=== PATIENT | female | born 1950 | race Caucasian/White ===

== ENCOUNTER 2023-04-30 14:53 | Outpatient (CLI) | payer OTHER, SELFPAY | END 2023-04-30 14:54 | disposition home or self-care (01) | PROVIDERS: Visit Provider Emergency Medicine | DX: M25.571 Pain in right ankle and joints of right foot (principal); D64.9 Anemia, unspecified; N18.9 Chronic kidney disease, unspecified | CPT/HCPCS: 84550; 86200 ==

== ENCOUNTER 2023-05-08 07:47 | Outpatient (CLI) | payer OTHER, SELFPAY | END 2023-05-08 07:48 | disposition home or self-care (01) | LOC: NFLDREF 14:18 | PROVIDERS: PCP Emergency Medicine; Visit Provider Family Medicine | DX: R35.0 Frequency of micturition (principal); N39.0 Urinary tract infection, site not specified | CPT/HCPCS: 87086; 87186 ==

== ENCOUNTER 2023-05-12 11:12 | Emergency (ER) | payer OTHER, SELFPAY ==
[2023-05-12 11:30] VITALS: BP 111/71; PULSE 79; RESP 16; TEMP 36.2; O2SAT 99
--- NOTE | 2023-05-12 12:02 | ED.GENADULT ---
HPI - General Adult General Chief complaint: Extremity Pain/Injury, Lower Stated complaint: right ankle/foot pain Time Seen by Provider: 05/12/23 11:59 History of Present Illness HPI narrative: A 72-year-old female with a past medical history of previous hep C, cirrhosis, liver transplant, kidney transplant(on prednisone, tacrolimus), hypothyroidism (levothyroxine 75 mcg), diabetes, recent diagnosis of UTI, who presents to the ER for hair pain, redness, and swelling involving her right anterior ankle. She has actually had pain involving the front of her right ankle for about 6 weeks or so. She denies any fall or trauma at the onset. He was initially fairly localized to the anterior ankle at the top of the foot with a small amount of redness. It has been was indolent in there for a few weeks, bothersome but not terrible. About a week or 2 it began to get worse and it has been getting steadily worse since then. She was seen in the urgent care on 04/30 for this ankle pain. Per clinic notes: Right anterior ankle pain swelling some redness. This is not seem typical for cellulitis, difficult to assess the there is infusion. She certainly is at risk for gout with her renal impairment. She also has history of osteoporosis, steroid dependent, at risk for occult fracture. The plan for now is mri of the ankle no contrast, I would like to stay place her on a tapering dose of prednisone 40 mg which is very worried about the higher dose. We will start at 20 mg for 4 days and then 10 mg for 3 days and then 5 mg. I will call her with her CT results, if symptoms acutely worsen she will recheck sooner. WBC 8.5, hemoglobin 12.1, platelet 141 Sodium 142, potassium 4.0, BUN 14, creatinine 1.1, glucose 132 Ankle x-ray IMPRESSION: Small plantar and posterior calcaneal spurs. Otherwise normal right ankle. She is scheduled for MRI next week but because her pain has been getting steadily worse, it is not intolerable and she is not able to walk, she came here to the ER. Pain has been getting steadily worse and she feels like the redness is now spreading affecting more of the top of her foot and anterior ankle. There is no ascending lymphangitis. No fever. No new injury. Hurts for her to walk on the ankle. She was in clinic on 05/07 for dysuria and frequency. Urinalysis showed 25-50 WBC, positive nitrate. She was treated with Cipro 250 mg p.o. b.i.d. for 7 days. Urine culture grew pansensitive E coli. She is still on those antibiotics today. Urinary symptoms are better. Related Data Home Medications Medication Instructions Recorded Confirmed albuterol sulfate 90 mcg/actuation inhalation 04/15/23 05/08/23 aerosol inhaler alendronate 35 mg tablet 35 mg PO 04/15/23 05/08/23 amlodipine 5 mg tablet 5 mg PO DAILY 04/15/23 05/08/23 atorvastatin 10 mg tablet 10 mg PO DAILY 04/15/23 05/08/23 carvedilol 12.5 mg tablet 12.5 mg PO BID 04/15/23 05/08/23 ergocalciferol (vitamin D2) 1,250 1,250 mcg PO 04/15/23 05/08/23 mcg (50,000 unit) capsule estradiol 0.01% (0.1 mg/gram) vaginal 04/15/23 05/08/23 vaginal cream fluticasone propionate 50 spray intranasal 04/15/23 05/08/23 mcg/actuation nasal spray,suspension hydroxyzine HCl 25 mg tablet mg PO 04/15/23 05/08/23 insulin aspart U-100 100 unit/mL 8 unit subcut 3XD 04/15/23 05/08/23 (3 mL) subcutaneous pen (Novolog FlexPen U-100 Insulin aspart) insulin degludec 100 unit/mL (3 20 unit subcut QAM 04/15/23 05/08/23 mL) subcutaneous pen (Tresiba FlexTouch U-100 insulin) levothyroxine 75 mcg tablet 75 mcg PO DAILY 04/15/23 05/08/23 levothyroxine 88 mcg tablet 88 mcg PO DAILY 04/15/23 05/08/23 mycophenolate mofetil 250 mg 500 mg PO BID 04/15/23 05/08/23 capsule prednisone 5 mg tablet 5 mg PO QAM 04/15/23 05/08/23 semaglutide 2 mg/dose (8 mg/3 mL) 2 mg subcut 04/15/23 05/08/23 subcutaneous pen injector (Ozempic) tacrolimus 1 mg capsule, mg PO 04/15/23 05/08/23 immediate-release trazodone 50 mg tablet mg PO 04/15/23 05/08/23 Previous Rx's Medication Instructions Recorded prednisone 10 mg tablet 10 mg PO DIRECTED #11 tabs 04/30/23 ciprofloxacin HCl 250 mg tablet 250 mg PO BID #14 tabs 05/08/23 hydrocodone 5 mg-acetaminophen 325 1 tab PO Q4-6H PRN pain #10 tabs 05/12/23 mg tablet Allergies Allergy/AdvReac Type Severity Reaction Status Date / Time No Known Drug Allergies Allergy Verified 05/08/23 07:54 [facility] Medical History (Updated 05/12/23 @ 15:04 by Armando Bell MD) Anemia ?D64.9 - Anemia, unspecified (ICD-10) CKD (chronic kidney disease) ?N18.9 - Chronic kidney disease, unspecified (ICD-10) Ankle pain ?M25.579 - Pain in unspecified ankle and joints of unspecified foot (ICD-10) Surgical History (Updated 05/12/23 @ 16:24 by Mery Smith ~ [facility], [facility]) History of appendectomy ?Z90.49 - Acquired absence of other specified parts of digestive tract (ICD-10) Liver transplant recipient ?Z94.4 - Liver transplant status (ICD-10) Kidney transplant recipient ?Z94.0 - Kidney transplant status (ICD-10) Social History Little interest or pleasure in doing things: not at all Feeling down, depressed, or hopeless: not at all Exam Const: Vital Signs, click to edit/add: Vital Signs - 24 hr 05/12/23 11:30 Temperature 97.1 F L Pulse Rate [Pulse Oximeter] 79 Respiratory Rate 16 Blood Pressure [Ri ght Upper Arm] 111/71 Pulse Oximetry 99 Oxygen Delivery Me thod Room Air Course Vital Signs Vital signs: Initial Vital Signs Temperature 97.1 F L 05/12/23 11:30 Temperature Source Temporal Artery Scan 05/12/23 11:30 Pulse Rate 79 05/12/23 11:30 Pulse Rhythm Regular 05/12/23 11:30 Respiratory Rate 16 05/12/23 11:30 Blood Pressure 111/71 05/12/23 11:30 Blood Pressure Mean 84 05/12/23 11:30 Blood Pressure Position Sitting 05/12/23 11:30 Pulse Oximetry 99 05/12/23 11:30 Oxygen Delivery Method Room Air 05/12/23 11:30 Vital Signs Temperature 97.1 F L 05/12/23 11:30 Pulse Rate 79 05/12/23 11:30 Respiratory Rate 16 05/12/23 11:30 Blood Pressure 111/71 05/12/23 11:30 Pulse Oximetry 99 05/12/23 11:30 Oxygen Delivery Method Room Air 05/12/23 11:30 Temperature 97.1 F L 05/12/23 11:30 Pulse Rate 79 05/12/23 11:30 Respiratory Rate 16 05/12/23 11:30 Blood Pressure 111/71 05/12/23 11:30 Pulse Oximetry 99 05/12/23 11:30 Oxygen Delivery Method Room Air 05/12/23 11:30 Medical Decision Making MDM Narrative Medical decision making narrative: Pleasant 72-year-old female on chronic immunosuppression for kidney and liver transplant presenting to the ER today with a 6 week history of right anterior ankle pain getting progressively worse and more severe over the past several days. She presents with significant erythema and tenderness on the anterior ankle as well as some mild lateral and posterior tenderness. Differential included ankle joint pathology such as septic arthritis, gouty arthritis, among other. Differential also includes cellulitis, no evidence for abscess. No evidence for necrotizing infection. She has strong peripheral pulses and no signs of acute limb ischemia. No anterior mathews or calf pain to suggest DVT. Laboratory workup shows normal white count but neutrophil predominance. Suspect this might be related to her concomitant UTI. ESR and CRP are reassuring. MRI of the patient's ankle shows evidence for tendinitis affecting the anterior tibialis tendon. Discussed with Radiology, Dr. Galvan, by phone. He indicates that it does show anterior tibialis tenosynovitis with some surrounding subcutaneous edema. No drainable fluid collections. Cam walker and crutches applied here in the ER. Patient will be able to manage with these at home. [place] for pain. Patient understands opiate precautions/sedation. Will arrange close outpatient follow-up with orthopedic clinic. Lab Data Lab results reviewed: Yes I reviewed the patient's lab results Labs: Lab Results 05/12/23 Range/Units 13:28 WBC 10.59 (4.50-11.00) K/uL RBC 4.64 (4.00-5.20) m/uL Hgb 11.8 L (12.0-16.0) gm/dL Hct 38.1 (33.0-51.0) % MCV 82 (80-100) fL MCH 25 L (26-34) pg MCHC 31 L (32-36) gm/dL RDW Coeff of Amelia 14.8 (11.5-15.5) % Plt Count 181 (140-440) K/uL Neut % (Auto) 86.3 H (42.0-72.0) % Lymph % (Auto) 5.7 L (20-44) % Runnels % (Auto) 6.5 (0.0-11.0) % Eos % (Auto) 0.6 (0.0-7.0) % Baso % (Auto) 0.2 (0.0-3.0) % Neut # (Auto) 9.10 H (1.7-7.0) K/uL Lymph # (Auto) 0.60 L (0.90-2.90) K/uL Runnels # (Auto) 0.70 (0.00-0.90) K/UL Eos # (Auto) 0.06 (0.00-0.50) K/uL Baso # (Auto) 0.02 (0.00-0.30) K/uL Abs Immat Gran (auto) 0.07 (0.00-0.30) K/uL Imm/Tot Granulo (auto) 0.7 % ESR 7 (2-20) mm/hr Sodium 142 (135-149) mmol/L Potassium 3.5 L (3.6-5.1) mmol/L Chloride 108 (96-114) mmol/L Carbon Dioxide 26 (20-32) mmol/L BUN 12 (7-30) mg/dL Creatinine 1.0 (0.5-1.5) mg/dL Estimated GFR 61 ml/min Glucose 124 H (60-115) mg/dL Calcium 9.0 (8.4-10.6) mg/dL C-Reactive Protein 0.7 (0.5-1.0) mg/dL Imaging Data MRI Right Ankle: Attestation: I have reviewed the pertinent imaging results. Radiologist's impression: IMPRESSION: Moderately prominent tenosynovitis of the anterior tibialis. Some limitation in image quality and diagnostic sensitivity due to poor fat saturation. Discharge Plan Discharge Clinical Impression: Tenosynovitis of ankle Patient Disposition: Home, Self-Care Condition: Stable Instructions: Tenosynovitis (ED) Additional Instructions: Please rest your ankle for the next couple of days until your follow-up with orthopedics. We will make an appointment for you today with the orthopedic clinic. Wear the ankle brace and use crutches as needed to help limit the mobility of her ankle. It is okay for you to stand on her ankle and bear weight because the bones are not broken. However try to avoid flexing and extending her foot. Use ice for 15-20 minutes every 3 hours health reduce redness, pain, and swelling. Continue your normal medications. Use [place] as needed for pain. Be careful, pain killer such as [place] can cause sedation, drowsiness, falls, constipation, and can be addictive. If you have worsening or uncontrolled pain or any concerns, see your doctor or come back to the ER immediately. Follow up appointment is scheduled at the [facility] on 05/14 with a 9:50am appointment time. Please arrive at 9:40am to check in and complete any paperwork. If you have any questions or need to reschedule, please call [phone]. [facility] [address] [place] [address] Activity Level: Weight Bearing as Tolerated Activity Detail: Limit bending and straightening of your right ankle. Rest the ankle tendons as much as possible. Prescriptions: New hydrocodone-acetaminophen 5-325 mg tablet 1 tab PO Q4-6H PRN (Reason: pain) Qty: 10 0RF No Action tacrolimus 1 mg capsule PO trazodone 50 mg tablet PO amlodipine 5 mg tablet 5 mg PO DAILY mycophenolate mofetil 250 mg capsule 500 mg PO BID insulin aspart U-100 [Novolog FlexPen U-100 Insulin] 100 unit/mL (3 mL) insulin pen 8 unit subcut 3XD alendronate 35 mg tablet 35 mg PO prednisone 5 mg tablet 5 mg PO QAM levothyroxine 75 mcg tablet 75 mcg PO DAILY carvedilol 12.5 mg tablet 12.5 mg PO BID Ozempic 2 mg/dose (8 mg/3 mL) pen injector 2 mg subcut insulin degludec [Tresiba FlexTouch U-100] 100 unit/mL (3 mL) insulin pen 20 unit subcut QAM atorvastatin 10 mg tablet 10 mg PO DAILY ergocalciferol (vitamin D2) 1,250 mcg (50,000 unit) capsule 1,250 mcg PO levothyroxine 88 mcg tablet 88 mcg PO DAILY hydroxyzine HCl 25 mg tablet PO estradiol 0.01 % (0.1 mg/gram) cream vaginal fluticasone propionate 50 mcg/actuation spray,suspension intranasal albuterol sulfate 90 mcg/actuation HFA aerosol inhaler inhalation ciprofloxacin HCl 250 mg tablet 250 mg PO BID Qty: 14 0RF prednisone 10 mg tablet 10 mg PO DIRECTED Qty: 11 0RF Rx Instructions: 2 tabs daily for 4days and then one tab daily for 3 days and then previous 5mg tab Follow Up/Referrals: Ashli Howell MD [Primary Care Provider] - Stand Alone Forms: [facility] Info Instructions
--- NOTE | 2023-05-12 12:31 | CRLHL7_ITS ---
For Patients: As a result of the Century Cures Act, medical imaging exams and procedure reports are released immediately into your electronic medical record. You may view this report before your referring provider. If you have questions, please contact your health care provider. INDICATION: Pain with redness. COMPARISON: Axial PD and T2 fat-sat, coronal PD and T2 fat-sat and sagittal PD and T2 right ankle sequences. Incomplete fat saturation is limiting. FINDINGS: Moderate amount of fluid anterior tibialis tendon sheath. Intact tendon. The other periarticular tendons are normal. No ligamentous injury of significance. Anatomic alignment of the ankle. Physiologic fluid. Upper normal fluid in the retrocalcaneal bursa. No obvious fracture or bone lesion. No soft tissue mass or fluid collection. There appears to be some nonspecific subcutaneous edema anteriorly and medially around the ankle into the dorsal foot. IMPRESSION: Moderately prominent tenosynovitis of the anterior tibialis. Some limitation in image quality and diagnostic sensitivity due to poor fat saturation. Dictated by Enrique Rocha MD @ 05/12/2023 2:34:25 PM (Electronically Signed)
--- OUTSIDE RECORDS SUMMARY | 2023-05-12 13:29 | XMS_ITS | Patient Health Record ---
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 Name Role Phone MARC FUENTES Primary Care Provider ALLERGIES No Known Allergies REASON FOR REFERRAL No Information MEDICATIONS Medication SIG (Take, Route, Frequency, Duration) Notes Start Date End Date Status Tresiba 100 UNIT/ML as directed Subcutaneous 30U Active amLODIPine Besylate 5 MG 1 tablet Orally Once a day for 90 days Active Ozempic 0.5 mg DOSE once a week Subcutaneous Takes 1 mg Active NovoLOG FlexPen 100 UNIT/ML 10U Subcutaneous once a day for 30 days Sliding Scale 08/25/2019 Active Belsomra 20 MG 1 tablet at bedtime as needed Orally Once a day for 30 days 12/06/2021 Active Lancets - as directed AD three times a day for 30 days 08/01/2019 Active predniSONE 5 MG 1 tablet Orally Once a day Active Mycophenolate Mofetil 250 MG 2 capsules Orally twice a day for 30 days Active Acyclovir 800 MG 1 tablet Orally PRN for 30 days Active Tacrolimus 1 MG 2 in the morning, 1 in the evening Orally for 30 days Active Levothyroxine Sodium 100 MCG 1 tablet on an empty stomach in the morning Orally Once a day for 30 days Active Carvedilol 12.5 MG 1 tablet with food Orally Twice a day for 90 days Active Ambien 10 MG 1 tablet at bedtime as needed Orally Once a day for 30 days 07/12/2019 Active Atorvastatin Calcium 10 MG 1 tablet Orally Once a day for 90 days Active Cetirizine HCl 10 MG 1 tablet Orally Onc e a day for 30 day(s) 12/06/2021 Active One Touch Delica Lancets pt tests TID to check blood sugar e11.65 three times a day for 90 days 08/11/2019 Active DULoxetine HCl 30 MG 1 capsule Orally On ce a day for 30 days 09/11/2021 Active Levemir FlexTouch 100 UNIT/ML 10 units Subcutaneous once a day dx. E11.65 for 90 days 08/29/2019 Active NovoFine 32G X 6 MM as directed twice a day for 30 days 08/05/2019 Active OneTouch Delica Plus [id number] - USE TO TEST BLOOD SUGAR THREE TIMES A DAY FOR 90 DAYS for 30 Active traZODone HCl 50 MG 1 tablet at bedtime as needed Orally Once a day for 90 days 12/06/2021 Active IMMUNIZATIONS Vaccine Route Administration Date Status Comme nts FLUZONE 6MO & OLDER IM Intramuscular 09/11/2021 Administer ed Shingrix SDV IM Intramuscular 09/11/2021 Administered SOCIAL HISTORY Tobacco Use: Social History Observation Description Date Details (start date - stop date) Current Smoker NA - NA Sex Assigned At : Social History Observation Description Sex Assigned At Unknown Do you Smoke? Question Answer Notes Are you a current smoker Alcohol Screen Question Answer Notes Did you have a drink containing alcohol in the p ast year? No Points 0 Interpretation Negative Sexual History Question Answer Notes Had sex in the past 12 months (vaginal, oral, or anal)? Yes with Men only Use protection? Yes How often? All of the time Prevention strategies discussed: Condoms Have you ever had a Sexually transmitted disease ? No PROBLEMS Problem Type ICD Code Onset Dates Problem Status W/U Status Risk SNOMED Code Notes Problem Mixed hyperlipidemia (E78.2) Active confirmed Mixed hyperlipidemia (111371578) Problem Type 2 diabetes mellitus with hyperglycemia (E11.65) Active confirmed Hyperglycemia due to type 2 diabetes mellitus (877237706523904 ) Problem Essential (primary) hypertension (I10) Active confirmed Essential hypertension (23104597) Problem Other specified hypothyroidism (E03.8) Active confirmed Hypothyroidism (18724090) Problem Vitamin D deficiency, unspecified (E55.9) Active confirmed Vitamin D deficiency (52300383) Problem Other headache syndrome (G44.89) Active confirmed Information temporarily unavailable Problem Other insomnia (G47.09) Active confirmed Insomnia (908887669) Problem Other allergic rhinitis (J30.89) Active confirmed Allergic rhinitis (91103145) Problem Kidney transplant status (Z94.0) Active confirmed History of re nal transplant (700194486) R kidney transplant Problem Chronic idiopathic constipation (K59.04) Active confirmed Information temporarily unavailable Problem Anxiety (F41.9) Active confirmed Inform ation temporarily unavailable Problem intermediate current use of insulin (Z79.4) Active confirmed Long-term current use of insulin (253701234) Problem History of kidney transplant (Z94.0) Active confirmed Information temporarily unavailable Problem Hypothyroidism (E03.9) Active confirmed Information temporarily unavailable Problem Scoliosis of lumbosacral spine, unspecified scoliosis type (M41.9) Active confirmed Information temporarily unavailable Problem Transplanted liver (Z94.4) Active confirmed Transplanted liver (3823399) Problem History of liver transplant (Z94.4) Active confirmed Information temporarily unavailable Problem Depression, major, recurrent, moderate (F33.1) Active confirmed Information temporarily unavailable Problem Scoliosis of thoracic spine, unspecified scoliosis type (M41.9) Active confirmed Information temporarily unavailable PLAN OF TREATMENT Pending Test Test Name Order Date DEXA Hip and Spine 09/11/2021 Insurance Providers Payer Name Payer Address Payer Phone Subscriber Number Group Number Insured Name Patient Relationship to Insured Coverage Start Date Coverage End Date [employer]- Medicare [address] [address] [place] [address] [id number] PRAVEEN BRITTON Self - patient is the insured MEDICAID SECONDARY [address] [place], [place] [address] [id number] PRAVEEN BRITTON Self - patient is the insured MEDICAL (GENERAL) HISTORY Medical History History ICD Code Diabetes Herpes Liver Transplant 2/2 liver cirrhosis, he p C Kidney Transplant 2/2 kidney injury 2/2 liver disease Surgical History Surgery Date(Month/Year) R kidney and liver transplant 12/2016 Hospitalization History Reason Date(Month/Year) see surgical hx
[2023-05-12 13:35] LABS: Basophils Absolute Auto 0.02 K/uL (0.00-0.30); Basophils Percent Auto 0.2 % (0.0-3.0); Eosinophils Absolute Auto 0.06 K/uL (0.00-0.50); Eosinophils Percent Auto 0.6 % (0.0-7.0); Hematocrit 38.1 % (33.0-51.0); Hemoglobin* 11.8 gm/dL (12.0-16.0); Immature Granulocytes Abs Auto 0.07 K/uL (0.00-0.30); Immature Granulocytes Pct Auto 0.7 %; Lymphocytes Percent Auto 5.7 % (20-44); Mean Corpuscular HGB Conc 31 gm/dL (32-36); Mean Corpuscular Hemoglobin 25 pg (26-34); Mean Corpuscular Volume 82 fL (80-100); Monocytes Percent Auto 6.5 % (0.0-11.0); Neutrophils Percent Auto 86.3 % (42.0-72.0); Platelet Count* 181 K/uL (140-440); RDW Coefficient of Variation % 14.8 % (11.5-15.5); Red Blood Count 4.64 m/uL (4.00-5.20); White Blood Count* 10.59 K/uL (4.50-11.00)
[2023-05-12 13:40] LABS: Slide Review Reflex No
[2023-05-12 14:00] LABS: Chloride* 108 mmol/L (96-114); Sodium* 142 mmol/L (135-149)
[2023-05-12 14:01] LABS: Potassium* 3.5 mmol/L (3.6-5.1)
[2023-05-12 14:03] LABS: Estimated Glomerular Filt Rate 61 ml/min
[2023-05-12 14:04] LABS: Blood Urea Nitrogen* 12 mg/dL (7-30); Carbon Dioxide* 26 mmol/L (20-32); Glucose* 124 mg/dL (60-115)
[2023-05-12 14:07] LABS: C Reactive Protein* 0.7 mg/dL (0.5-1.0)
[2023-05-12 14:33] LABS: Erythrocyte SedimentationRate* 7 mm/hr (2-20)
[2023-05-12] MEDS: HYDROCODONE-ACETAMIN 5-325 MG 1 TAB PO (14:59)
== END 2023-05-12 15:24 | disposition home or self-care (01) ==
PROVIDERS: Emergency Provider Emergency Medicine; PCP Emergency Medicine
DX: M65.871 Other synovitis and tenosynovitis, right ankle and foot (principal)
CPT/HCPCS: 29505; 36415; 73721; 80048; 85025; 85651; 86140; 99283; 99284; A9270

== ENCOUNTER 2023-09-24 08:27 | Outpatient (CLI) | payer OTHER, SELFPAY | END 2023-09-24 08:28 | disposition home or self-care (01) | PROVIDERS: PCP Emergency Medicine; Visit Provider Emergency Medicine | DX: Z94.0 Kidney transplant status (principal); Z94.4 Liver transplant status; E03.9 Hypothyroidism, unspecified | CPT/HCPCS: 80053; 80061; 84443 ==

== ENCOUNTER 2023-12-28 14:57 | Inpatient (IN) | payer OTHER, SELFPAY ==
[2023-12-28] VITALS (20 sets, daily range): BP systolic 111–127; BP diastolic 62–87; PULSE 71–90; RESP 16–18; TEMP 36.1–36.3; O2SAT 89–99; BMI 23.0
--- NOTE | 2023-12-28 15:35 | ED.ABDPAIN ---
HPI - Abdominal Pain General Time Seen by Provider: 15:36 <Sobia Jurado MD - Last Filed: 12/29/23 14:20> Date Seen: 12/28/23 <Sobia Jurado MD - Last Filed: 12/29/23 14:20> Chief Complaint: Abdominal Pain <Sobia Jurado MD - Last Filed: 12/29/23 14:20> Stated Complaint: Lower abdominal pain, diarrhea, loss of rogers <Sobia Jurado MD - Last Filed: 12/29/23 14:20> Time Seen by Provider: 12/28/23 15:34 <Sobia Jurado MD - Last Filed: 12/29/23 14:20> Source: patient and RN notes reviewed <Sobia Jurado MD - Last Filed: 12/29/23 14:20> Mode of arrival: ambulatory <Sobia Jurado MD - Last Filed: 12/29/23 14:20> Limitations: no limitations <Sobia Jurado MD - Last Filed: 12/29/23 14:20> History of Present Illness HPI narrative: This 73-year-old female is referred to us from our Urgent Care for abdominal imaging for abdominal pain. She has had abdominal pain for 2 days now, had a fever of 102 on the 1st day. Has had nausea, some small emesis, not currently nauseated. She has had some nonbloody diarrhea but does intermittently have underlying diarrhea which she attributes to summer medicines. She was put back on Ozempic maybe about 6 weeks ago were so, she has had diarrhea with that in the past. She is status post appendectomy, status post liver and kidney transplant. She is maintained on 5 mg prednisone, tacrolimus and mycophenolate. Her pain is significant now, she states it started in the lower abdomen but seems to be spreading up. She had been using some Tylenol and ibuprofen for some back pain which she states has not helped her abdominal symptoms at all. No fever since onset of symptoms, feels bloated today. Movement increases pain. Has also had her gallbladder removed. <Sobia Jurado MD - Last Filed: 12/29/23 14:20> MD elicited complaint: abdominal pain <Sobia Jurado MD - Last Filed: 12/29/23 14:20> Related Data Home Medications: Home Medications Medication Instructions Recorded Confirmed amlodipine 5 mg tablet 5 mg PO HS 04/15/23 12/29/23 atorvastatin 10 mg tablet 10 mg PO HS 04/15/23 12/29/23 carvedilol 12.5 mg tablet 12.5 mg PO BID 04/15/23 12/29/23 insulin aspart U-100 100 unit/mL 8 unit subcut TIDWM 04/15/23 12/29/23 (3 mL) subcutaneous pen (Novolog FlexPen U-100 Insulin aspart) insulin degludec 100 unit/mL (3 20 unit subcut QAM 04/15/23 12/29/23 mL) subcutaneous pen (Tresiba FlexTouch U-100 insulin) mycophenolate mofetil 250 mg 500 mg PO BID 04/15/23 12/29/23 capsule prednisone 5 mg tablet 5 mg PO QAM 04/15/23 12/29/23 tacrolimus 1 mg capsule, 1 - 2 mg PO BID 04/15/23 12/29/23 immediate-release trazodone 50 mg tablet 50 mg PO HS PRN 04/15/23 12/29/23 blood sugar diagnostic (Accu-Chek #10 ea 05/13/23 12/28/23 Guide test strips) blood-glucose meter (Accu-Chek #1 ea 05/13/23 12/28/23 Guide Me Glucose Meter) lancets (Accu-Chek Softclix #100 ea 05/13/23 12/28/23 Lancets) pen needle, diabetic 32 gauge x #50 ea 05/13/23 12/28/2310/08 (BD Ultra-Fine Micro Pen Needle) levothyroxine 75 mcg tablet 75 mcg PO DAILY 10/07/23 12/29/23 acyclovir 400 mg tablet 400 mg PO BID PRN 12/29/23 12/29/23 alendronate 70 mg tablet 70 mg PO QWEEK 12/29/23 12/29/23 Previous Rx's Medication Instructions Recorded blood-glucose meter,continuous #1 ea 10/28/23 (Dexcom G6 Brush Maker Machine) blood-glucose sensor (Dexcom G6 #6 ea 10/28/23 Sensor device) semaglutide 2 mg/dose (8 mg/3 mL) 2 mg (0.75 mL) subcut QWEEK #9 mL 10/28/23 subcutaneous pen injector (Ozempic) blood-glucose transmitter (Dexcom #1 ea 11/03/23 G6 Transmitter device) <Sobia Jurado MD - Last Filed: 12/29/23 14:20> Allergies/Adverse Reactions: Allergies Allergy/AdvReac Type Severity Reaction Status Date / Time No Known Drug Allergies Allergy Verified 12/31/23 10:42 <Sobia Jurado MD - Last Filed: 12/29/23 14:20> Review of Systems Status of ROS Reports: 6 or more systems reviewed and unremarkable except as noted in History and below <Sobia Jurado MD - Last Filed: 12/29/23 14:20> [facility] Medical History: Medical History (Updated 12/31/23 @ 12:18 by Shari Xie MD) HRF (hepatorenal failure) ?K76.7 - Hepatorenal syndrome (ICD-10) History of hepatitis C ?Z86.19 - Personal history of other infectious and parasitic diseases (ICD-10) Tenosynovitis of right ankle ?M65.9 - Synovitis and tenosynovitis, unspecified (ICD-10) Urinary tract infection ?N39.0 - Urinary tract infection, site not specified (ICD-10) Methicillin resistant Staphylococcus aureus culture positive ?Z22.322 - Carrier or suspected carrier of Methicillin resistant Staphylococcus aureus (ICD-10) Colon polyp ?K63.5 - Polyp of colon (ICD-10) Atrophic vaginitis ?N95.2 - Postmenopausal atrophic vaginitis (ICD-10) Diabetes mellitus due to underlying condition ?E08.9 - Diabetes mellitus due to underlying condition without complications (ICD-10) 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, uncomplicated (ICD-10) Osteoporosis ?M81.0 - Age-related osteoporosis without current pathological fracture (ICD-10) CKD (chronic kidney disease) ?N18.9 - Chronic kidney disease, unspecified (ICD-10) <Sobia Jurado MD - Last Filed: 12/29/23 14:20> Surgical History: Surgical History (Updated 12/29/23 @ 14:35 by Vanda Fajardo MD) History of appendectomy ?Z90.49 - Acquired absence of other specified parts of digestive tract (ICD-10) Liver transplant recipient (~12/2016) ?Z94.4 - Liver transplant status (ICD-10) Kidney transplant recipient (~12/2016) ?Z94.0 - Kidney transplant status (ICD-10) <Sobia Jurado MD - Last Filed: 12/29/23 14:20> Family History: Family History Mother COPD (chronic obstructive pulmonary disease) Sister Breast cancer <Sobia Jurado MD - Last Filed: 12/29/23 14:20> Social History: Social History What is your current living situation?: I presently have a place to live Problems where you live: no known problems Problems where you live details: none In the past 12 months, utilities in danger of being shut off: no In past 12 months, lack of transportation kept you from medical appts, meetings, work, or getting things needed for daily living: no In the past 12 mos, have been you worried that your food would run out before you had money to buy more?: never true In the past 12 mos, the food you bought just didn't last and you didn't have money to buy more?: never true Highest level of school completed/degree received: some college, no degree Smoking Status: Never smoker Do you use any of these nicotine containing products: None How often do you have a drink containing alcohol: monthly or less AUDIT-C Alcohol total score: 1 Non-prescribed substance use: marijuana (any form) Non-prescribed substance use details: edibles Caffeine: Yes (tea in am) How often does anyone, including family, friends and others, physically hurt you: never How often does anyone, including family, friends and others, insult or talk down to you: never How often does anyone, including family, friends and others, threaten you with harm: never How often does anyone, including family, friends and others, scream or curse at you: never Little interest or pleasure in doing things: not at all Feeling down, depressed, or hopeless: not at all service: No <Sobia Jurado MD - Last Filed: 12/29/23 14:20> Exam Const: Vital Signs, click to edit/add: Vital Signs - 24 hr 12/28/23 15:04 12/28/23 15:45 12/28/23 16:17 Temperature 97.3 F L Pulse Rate 84 Pulse Rate [Right Pulse Oximeter] 85 Respiratory Rate 18 Blood Pressure Blood Pressure [Ri ght Upper Arm] 119/72 Pulse Oximetry 98 97 98 Oxygen Delivery Me thod Room Air 12/28/23 17:00 12/28/23 18:00 12/28/23 18:40 Temperature Pulse Rate 90 84 79 Pulse Rate [Right Pulse Oximeter] Respiratory Rate Blood Pressure 116/87 Blood Pressure [Ri ght Upper Arm] Pulse Oximetry 94 98 97 Oxygen Delivery Me thod 12/28/23 18:41 12/28/23 19:19 12/28/23 19:20 Temperature Pulse Rate 79 81 Pulse Rate [Right Pulse Oximeter] 82 Respiratory Rate 18 Blood Pressure 111/63 Blood Pressure [Ri ght Upper Arm] 116/87 Pulse Oximetry 98 99 89 Oxygen Delivery Me thod Room Air 12/28/23 20:31 12/28/23 20:32 12/28/23 20:45 Temperature 97.0 F L Pulse Rate 76 77 Pulse Rate [Right Pulse Oximeter] 76 Respiratory Rate 18 Blood Pressure 113/72 Blood Pressure [Ri ght Upper Arm] 113/72 Pulse Oximetry 98 96 98 Oxygen Delivery Me thod Room Air 12/28/23 21:00 12/28/23 21:29 12/28/23 21:42 Temperature Pulse Rate 77 73 Pulse Rate [Right Pulse Oximeter] 75 Respiratory Rate 18 Blood Pressure 120/62 Blood Pressure [Ri ght Upper Arm] 120/63 Pulse Oximetry 93 95 95 Oxygen Delivery Me thod Room Air 12/28/23 22:00 12/28/23 22:45 12/28/23 22:47 Temperature Pulse Rate 71 Pulse Rate [Right Pulse Oximeter] 72 Respiratory Rate 16 Blood Pressure 115/67 Blood Pressure [Ri ght Upper Arm] 115/67 Pulse Oximetry 94 98 Oxygen Delivery Me thod Room Air 12/28/23 23:00 12/28/23 23:48 12/29/23 00:00 Temperature Pulse Rate 77 72 68 Pulse Rate [Right Pulse Oximeter] Respiratory Rate Blood Pressure 127/75 Blood Pressure [Ri ght Upper Arm] Pulse Oximetry 98 97 95 Oxygen Delivery Me thod 12/29/23 00:29 12/29/23 01:00 12/29/23 02:00 Temperature 99.3 F Pulse Rate 63 Pulse Rate [Right Pulse Oximeter] 72 79 Respiratory Rate 16 16 Blood Pressure Blood Pressure [Ri ght Upper Arm] 127/75 126/62 Pulse Oximetry 97 95 98 Oxygen Delivery Me thod Room Air Room Air 12/29/23 02:00 12/29/23 02:07 12/29/23 03:00 Temperature Pulse Rate 64 79 74 Pulse Rate [Right Pulse Oximeter] Respiratory Rate Blood Pressure 126/62 Blood Pressure [Ri ght Upper Arm] Pulse Oximetry 97 97 94 Oxygen Delivery Me thod 12/29/23 04:00 12/29/23 04:01 12/29/23 04:02 Temperature Pulse Rate 68 70 Pulse Rate [Right Pulse Oximeter] 77 Respiratory Rate 16 Blood Pressure 136/73 Blood Pressure [Ri ght Upper Arm] 136/73 Pulse Oximetry 95 97 97 Oxygen Delivery Me thod Room Air 12/29/23 05:00 12/29/23 06:00 12/29/23 06:02 Temperature Pulse Rate 69 70 78 Pulse Rate [Right Pulse Oximeter] Respiratory Rate Blood Pressure 128/69 Blood Pressure [Ri ght Upper Arm] Pulse Oximetry 95 93 97 Oxygen Delivery Me thod 12/29/23 06:39 12/29/23 07:00 12/29/23 07:11 Temperature 98.2 F Pulse Rate 65 Pulse Rate [Right Pulse Oximeter] 70 76 Respiratory Rate 18 20 Blood Pressure Blood Pressure [Ri ght Upper Arm] 128/69 Pulse Oximetry 94 97 97 Oxygen Delivery Me thod Room Air 12/29/23 08:00 12/29/23 08:02 12/29/23 08:03 Temperature Pulse Rate 63 65 64 Pulse Rate [Right Pulse Oximeter] Respiratory Rate Blood Pressure 138/79 Blood Pressure [Ri ght Upper Arm] Pulse Oximetry 96 96 95 Oxygen Delivery Me thod 12/29/23 09:28 Temperature Pulse Rate 80 Pulse Rate [Right Pulse Oximeter] Respiratory Rate 16 Blood Pressure Blood Pressure [Ri ght Upper Arm] Pulse Oximetry 94 Oxygen Delivery Me thod This 73-year-old female is alert, interactive, lying in bed. She is very pleasant, able to talk in complete sentences. Her glasses seem to have a yellow tinting but overall do not see any jaundice. Skin visualize the any rash. She is able to talk in complete sentences, has conjugate gaze, speech is normal. Neck is supple, no adenopathy or masses. Lungs are clear, good air entry, no wheezing or crackles. CV regular rate and rhythm, no murmur, normal S1-S2, no S3-S4. Abdomen does seem mildly distended but she has bowel sounds, she has diffuse mild tenderness throughout her abdomen but I do not appreciate a masses organomegaly. There is certainly no rebound or guarding. No lower extremity edema. <Sobia Jurado MD - Last Filed: 12/29/23 14:20> Vital Signs, click to edit/add: Vital Signs - 24 hr 12/28/23 15:04 12/28/23 15:45 12/28/23 16:17 Temperature 97.3 F L Pulse Rate 84 Pulse Rate [Right Pulse Oximeter] 85 Respiratory Rate 18 Blood Pressure Blood Pressure [Ri ght Upper Arm] 119/72 Pulse Oximetry 98 97 98 Oxygen Delivery Me thod Room Air 12/28/23 17:00 12/28/23 18:00 12/28/23 18:40 Temperature Pulse Rate 90 84 79 Pulse Rate [Right Pulse Oximeter] Respiratory Rate Blood Pressure 116/87 Blood Pressure [Ri ght Upper Arm] Pulse Oximetry 94 98 97 Oxygen Delivery Me thod 12/28/23 18:41 12/28/23 19:19 12/28/23 19:20 Temperature Pulse Rate 79 81 Pulse Rate [Right Pulse Oximeter] 82 Respiratory Rate 18 Blood Pressure 111/63 Blood Pressure [Ri ght Upper Arm] 116/87 Pulse Oximetry 98 99 89 Oxygen Delivery Me thod Room Air 12/28/23 20:31 12/28/23 20:32 12/28/23 20:45 Temperature 97.0 F L Pulse Rate 76 77 Pulse Rate [Right Pulse Oximeter] 76 Respiratory Rate 18 Blood Pressure 113/72 Blood Pressure [Ri ght Upper Arm] 113/72 Pulse Oximetry 98 96 98 Oxygen Delivery Me thod Room Air 12/28/23 21:00 12/28/23 21:29 12/28/23 21:42 Temperature Pulse Rate 77 73 Pulse Rate [Right Pulse Oximeter] 75 Respiratory Rate 18 Blood Pressure 120/62 Blood Pressure [Ri ght Upper Arm] 120/63 Pulse Oximetry 93 95 95 Oxygen Delivery Me thod Room Air 12/28/23 22:00 12/28/23 22:45 12/28/23 22:47 Temperature Pulse Rate 71 Pulse Rate [Right Pulse Oximeter] 72 Respiratory Rate 16 Blood Pressure 115/67 Blood Pressure [Ri ght Upper Arm] 115/67 Pulse Oximetry 94 98 Oxygen Delivery Me thod Room Air 12/28/23 23:00 12/28/23 23:48 12/29/23 00:00 Temperature Pulse Rate 77 72 68 Pulse Rate [Right Pulse Oximeter] Respiratory Rate Blood Pressure 127/75 Blood Pressure [Ri ght Upper Arm] Pulse Oximetry 98 97 95 Oxygen Delivery Me thod 12/29/23 00:29 12/29/23 01:00 12/29/23 02:00 Temperature 99.3 F Pulse Rate 63 Pulse Rate [Right Pulse Oximeter] 72 79 Respiratory Rate 16 16 Blood Pressure Blood Pressure [Ri ght Upper Arm] 127/75 126/62 Pulse Oximetry 97 95 98 Oxygen Delivery Me thod Room Air Room Air 12/29/23 02:00 12/29/23 02:07 12/29/23 03:00 Temperature Pulse Rate 64 79 74 Pulse Rate [Right Pulse Oximeter] Respiratory Rate Blood Pressure 126/62 Blood Pressure [Ri ght Upper Arm] Pulse Oximetry 97 97 94 Oxygen Delivery Me thod 12/29/23 04:00 12/29/23 04:01 12/29/23 04:02 Temperature Pulse Rate 68 70 Pulse Rate [Right Pulse Oximeter] 77 Respiratory Rate 16 Blood Pressure 136/73 Blood Pressure [Ri ght Upper Arm] 136/73 Pulse Oximetry 95 97 97 Oxygen Delivery Me thod Room Air 12/29/23 05:00 12/29/23 06:00 12/29/23 06:02 Temperature Pulse Rate 69 70 78 Pulse Rate [Right Pulse Oximeter] Respiratory Rate Blood Pressure 128/69 Blood Pressure [Ri ght Upper Arm] Pulse Oximetry 95 93 97 Oxygen Delivery Me thod 12/29/23 06:39 12/29/23 07:00 12/29/23 07:11 Temperature 98.2 F Pulse Rate 65 Pulse Rate [Right Pulse Oximeter] 70 76 Respiratory Rate 18 20 Blood Pressure Blood Pressure [Ri ght Upper Arm] 128/69 Pulse Oximetry 94 97 97 Oxygen Delivery Me thod Room Air 12/29/23 08:00 12/29/23 08:02 12/29/23 08:03 Temperature Pulse Rate 63 65 64 Pulse Rate [Right Pulse Oximeter] Respiratory Rate Blood Pressure 138/79 Blood Pressure [Ri ght Upper Arm] Pulse Oximetry 96 96 95 Oxygen Delivery Me thod 12/29/23 09:28 Temperature Pulse Rate 80 Pulse Rate [Right Pulse Oximeter] Respiratory Rate 16 Blood Pressure Blood Pressure [Ri ght Upper Arm] Pulse Oximetry 94 Oxygen Delivery Me thod <Pushpa Banks MD - Last Filed: 12/28/23 22:58> Vital Signs, click to edit/add: Vital Signs - 24 hr 12/28/23 15:04 12/28/23 15:45 12/28/23 16:17 Temperature 97.3 F L Pulse Rate 84 Pulse Rate [Right Pulse Oximeter] 85 Respiratory Rate 18 Blood Pressure Blood Pressure [Ri ght Upper Arm] 119/72 Pulse Oximetry 98 97 98 Oxygen Delivery Me thod Room Air 12/28/23 17:00 12/28/23 18:00 12/28/23 18:40 Temperature Pulse Rate 90 84 79 Pulse Rate [Right Pulse Oximeter] Respiratory Rate Blood Pressure 116/87 Blood Pressure [Ri ght Upper Arm] Pulse Oximetry 94 98 97 Oxygen Delivery Me thod 12/28/23 18:41 12/28/23 19:19 12/28/23 19:20 Temperature Pulse Rate 79 81 Pulse Rate [Right Pulse Oximeter] 82 Respiratory Rate 18 Blood Pressure 111/63 Blood Pressure [Ri ght Upper Arm] 116/87 Pulse Oximetry 98 99 89 Oxygen Delivery Me thod Room Air 12/28/23 20:31 12/28/23 20:32 12/28/23 20:45 Temperature 97.0 F L Pulse Rate 76 77 Pulse Rate [Right Pulse Oximeter] 76 Respiratory Rate 18 Blood Pressure 113/72 Blood Pressure [Ri ght Upper Arm] 113/72 Pulse Oximetry 98 96 98 Oxygen Delivery Me thod Room Air 12/28/23 21:00 12/28/23 21:29 12/28/23 21:42 Temperature Pulse Rate 77 73 Pulse Rate [Right Pulse Oximeter] 75 Respiratory Rate 18 Blood Pressure 120/62 Blood Pressure [Ri ght Upper Arm] 120/63 Pulse Oximetry 93 95 95 Oxygen Delivery Me thod Room Air 12/28/23 22:00 12/28/23 22:45 12/28/23 22:47 Temperature Pulse Rate 71 Pulse Rate [Right Pulse Oximeter] 72 Respiratory Rate 16 Blood Pressure 115/67 Blood Pressure [Ri ght Upper Arm] 115/67 Pulse Oximetry 94 98 Oxygen Delivery Me thod Room Air 12/28/23 23:00 12/28/23 23:48 12/29/23 00:00 Temperature Pulse Rate 77 72 68 Pulse Rate [Right Pulse Oximeter] Respiratory Rate Blood Pressure 127/75 Blood Pressure [Ri ght Upper Arm] Pulse Oximetry 98 97 95 Oxygen Delivery Me thod 12/29/23 00:29 12/29/23 01:00 12/29/23 02:00 Temperature 99.3 F Pulse Rate 63 Pulse Rate [Right Pulse Oximeter] 72 79 Respiratory Rate 16 16 Blood Pressure Blood Pressure [Ri ght Upper Arm] 127/75 126/62 Pulse Oximetry 97 95 98 Oxygen Delivery Me thod Room Air Room Air 12/29/23 02:00 12/29/23 02:07 12/29/23 03:00 Temperature Pulse Rate 64 79 74 Pulse Rate [Right Pulse Oximeter] Respiratory Rate Blood Pressure 126/62 Blood Pressure [Ri ght Upper Arm] Pulse Oximetry 97 97 94 Oxygen Delivery Me thod 12/29/23 04:00 12/29/23 04:01 12/29/23 04:02 Temperature Pulse Rate 68 70 Pulse Rate [Right Pulse Oximeter] 77 Respiratory Rate 16 Blood Pressure 136/73 Blood Pressure [Ri ght Upper Arm] 136/73 Pulse Oximetry 95 97 97 Oxygen Delivery Me thod Room Air 12/29/23 05:00 12/29/23 06:00 12/29/23 06:02 Temperature Pulse Rate 69 70 78 Pulse Rate [Right Pulse Oximeter] Respiratory Rate Blood Pressure 128/69 Blood Pressure [Ri ght Upper Arm] Pulse Oximetry 95 93 97 Oxygen Delivery Me thod 12/29/23 06:39 12/29/23 07:00 12/29/23 07:11 Temperature 98.2 F Pulse Rate 65 Pulse Rate [Right Pulse Oximeter] 70 76 Respiratory Rate 18 20 Blood Pressure Blood Pressure [Ri ght Upper Arm] 128/69 Pulse Oximetry 94 97 97 Oxygen Delivery Me thod Room Air 12/29/23 08:00 12/29/23 08:02 12/29/23 08:03 Temperature Pulse Rate 63 65 64 Pulse Rate [Right Pulse Oximeter] Respiratory Rate Blood Pressure 138/79 Blood Pressure [Ri ght Upper Arm] Pulse Oximetry 96 96 95 Oxygen Delivery Me thod 12/29/23 09:28 Temperature Pulse Rate 80 Pulse Rate [Right Pulse Oximeter] Respiratory Rate 16 Blood Pressure Blood Pressure [Ri ght Upper Arm] Pulse Oximetry 94 Oxygen Delivery Me thod <Brenton Centeno MD - Last Filed: 12/31/23 15:52> Documenting provider has reviewed patient's vital signs: yes <Sobia Jurado MD - Last Filed: 12/29/23 14:20> Course Course ED Course: This 73-year-old female is reporting initial fever at onset of her illness, now just having abdominal pain, nausea vomiting and diarrhea. She is on Ozempic but has been on it for weeks, no recent does adjustment. She has had kidney and liver transplants, it is immunocompromised due to her anti rejection medications. She does need CT imaging for further evaluation. This certainly could be infectious, inflammatory, ischemic bowel, obstruction. We will have her on pulse oximetry, give her 2 mg IV morphine to see if it helps alleviate her pain. Will give her 4 mg IV Zofran to ensure that the morphine does not make her nauseated. Right now, she states she is having no nausea. <Sobia Jurado MD - Last Filed: 12/29/23 14:20> Reevaluation(s) Time of Reevaluation #1: 16:38 <Sobia Jurado MD - Last Filed: 12/29/23 14:20> Reevaluation #1: Was notified by a radiology that patient's GFR is 28, creatinine 1.9. Thus, no IV contrast will be given for her CT. <Sobia Jurado MD - Last Filed: 12/29/23 14:20> Time of Reevaluation #2: 17:54 <Sobia Jurado MD - Last Filed: 12/29/23 14:20> Reevaluation #2: Have reviewed the CT findings with the patient. She understands that antibiotics are being ordered. She had her transplant in [place]. She receives her current cares for transplant at the [facility]. With the initial dose of morphine has helped but she is still having fair amount of pain. Will re-dose with 2 mg IV morphine, she is still being monitored on pulse oximetry. <Sobia Jurado MD - Last Filed: 12/29/23 14:20> Reevaluation #3: Inherited this patient at change of shift pending bed availability at [facility]. Was informed that there is no imminent bed available. Did call back to the speak with transplant team. Reporting that transplants were done in [place]. They have seen her once. Would still be happy to accept her. Unsure if can prioritize further. Reviewing labs show white count is not elevated now about half of what it was initially checked. I would like to trend her creatinine. Was elevated from a baseline that we have here of 1 up to 1.9 yesterday. Blood pressures remain good. No fever. With renal consideration I am thinking that it might be better to change from morphine to Dilaudid for pain management if needed for bumps. <Brenton Centeno MD - Last Filed: 12/31/23 15:52> Additional Reevaluation(s): 12/29/2023 Patient is seen today as she has not been able to transfer, did confirm with the [facility] that they still have her accepted but no bed yet. Called and confirmed with them that she is still on the wait list for a bed at 11:11am. She reports abdominal pain is still happening, morphine helps but she is not feeling worse. No fevers over night. She has been NPO. No stool or passage of gas since arrival in the ED. No vomiting over night. She is diabetic on insulin and ozempic, has a dexcom monitor. 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 No chest pain, no shortness of breath, no other concerns. Patient is alert, interactive, watching TV. Lungs are clear. CV regular rate and rhythm. 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 Abdomen seems less distended than yesterday. Last dexcom was in 80's. Labs reviewed, stable. A/P: 73yo female with perforated sigmoid diverticulitis: awaiting transfer to [facility], staff will check other facilities as well. Continue IV Zosyn, NPO. Follow clinically for now, consider re-imaging if she is worsening. Diabetes: ozempic held, consider 1/2 dose of her baseline long-acting insulin if her sugars are elevating. No hypoglycemia. Holding meal coverage insuling while NPO. With sugars in 80's, just following with her dexcom, no insulin given today. NPO. Kidney/liver transplant: Continue immune suppresants, follow vitals and consider stress dosing of steroids if clinically indicated. DVT prophylaxis: confirmed with our hospitalist, 40mg subcutaneous lovenox which has been ordered. (She is considering keeping patient here, she will review and talk to surgeon, needs to review this here) ADDENDUM: Dr. Fajardo will consult and review but still believes that transfer is optimal after review with Dr. Xie. Likely to need transplant and ID consultation, probable intervention eventually with this issue with surgery, likely prolonged hospitalization with patients with these issues. <Sobia Jurado MD - Last Filed: 12/29/23 14:20> Consultations Consultation #1: Spoke with our general surgeon on-call Dr. Xie whom believes that this patient should be transferred back to a center that has transplant, ID and advanced multi-specialty services. She agree she is immunocompromised, could have certainly a more complex course, may need surgery. This is not someone that would be a candidate for us here in [place]. Will be ordering Zosyn. <Sobia Jurado MD - Last Filed: 12/29/23 14:20> Time: 17:46 <Sobia Jurado MD - Last Filed: 12/29/23 14:20> Consultation #2: Have spoken with Dr. Cain the hospitalist accepting. He does accept the patient but he would like her at the [facility], they will not have bed availability until tomorrow. They will make her priority. We are to contact them if her status changes or she is worsening. <Sobia Jurado MD - Last Filed: 12/29/23 14:20> Time: 18:25 <Sobia Jurado MD - Last Filed: 12/29/23 14:20> Consultation #3: Spoke with Leatha MELCHOR from [facility]. Dr. Ferguson from colorectal surgery has reviewed the CT images from yesterday. He doesn't feel that she is a surgical candidate at this time and they will be unable to accept her. Their routine GI/medical beds are capped, on diversion. <Sobia Jurado MD - Last Filed: 12/29/23 14:20> Time: 11:50 <Sobia Jurado MD - Last Filed: 12/29/23 14:20> Additional Consultation(s): 2:15 p.m.: Dr. Fajardo has seen this patient consultation, she has talked to specialists, it is felt that the patient can stay here, is stable to be managed here. We will plan for admission here. <Sobia Jurado MD - Last Filed: 12/29/23 14:20> Vital Signs Vital signs: Initial Vital Signs Temperature 97.3 F L 12/28/23 15:04 Temperature Source Temporal Artery Scan 12/28/23 15:04 Pulse Rate 85 12/28/23 15:04 Respiratory Rate 18 12/28/23 15:04 Blood Pressure 119/72 12/28/23 15:04 Blood Pressure Mean 87 12/28/23 15:04 Blood Pressure Position Sitting 12/28/23 15:04 Pulse Oximetry 98 12/28/23 15:04 Oxygen Delivery Method Room Air 12/28/23 15:04 Vital Signs Temperature 97.3 F L 12/28/23 15:04 Pulse Rate 85 12/28/23 15:04 Respiratory Rate 18 12/28/23 15:04 Blood Pressure 119/72 12/28/23 15:04 Pulse Oximetry 98 12/28/23 15:04 Oxygen Delivery Method Room Air 12/28/23 15:04 Temperature 98.9 F 12/31/23 11:00 Pulse Rate 84 12/31/23 11:00 Respiratory Rate 16 12/31/23 11:00 Blood Pressure 138/88 12/31/23 11:00 Pulse Oximetry 98 12/31/23 11:00 Oxygen Delivery Method Room Air 12/31/23 11:00 <Sobia Jurado MD - Last Filed: 12/29/23 14:20> Initial Vital Signs Temperature 97.3 F L 12/28/23 15:04 Temperature Source Temporal Artery Scan 12/28/23 15:04 Pulse Rate 85 12/28/23 15:04 Respiratory Rate 18 12/28/23 15:04 Blood Pressure 119/72 12/28/23 15:04 Blood Pressure Mean 87 12/28/23 15:04 Blood Pressure Position Sitting 12/28/23 15:04 Pulse Oximetry 98 12/28/23 15:04 Oxygen Delivery Method Room Air 12/28/23 15:04 Vital Signs Temperature 97.3 F L 12/28/23 15:04 Pulse Rate 85 12/28/23 15:04 Respiratory Rate 18 12/28/23 15:04 Blood Pressure 119/72 12/28/23 15:04 Pulse Oximetry 98 12/28/23 15:04 Oxygen Delivery Method Room Air 12/28/23 15:04 Temperature 98.9 F 12/31/23 11:00 Pulse Rate 84 12/31/23 11:00 Respiratory Rate 16 12/31/23 11:00 Blood Pressure 138/88 12/31/23 11:00 Pulse Oximetry 98 12/31/23 11:00 Oxygen Delivery Method Room Air 12/31/23 11:00 <Pushpa Banks MD - Last Filed: 12/28/23 22:58> Initial Vital Signs Temperature 97.3 F L 12/28/23 15:04 Temperature Source Temporal Artery Scan 12/28/23 15:04 Pulse Rate 85 12/28/23 15:04 Respiratory Rate 18 12/28/23 15:04 Blood Pressure 119/72 12/28/23 15:04 Blood Pressure Mean 87 12/28/23 15:04 Blood Pressure Position Sitting 12/28/23 15:04 Pulse Oximetry 98 12/28/23 15:04 Oxygen Delivery Method Room Air 12/28/23 15:04 Vital Signs Temperature 97.3 F L 12/28/23 15:04 Pulse Rate 85 12/28/23 15:04 Respiratory Rate 18 12/28/23 15:04 Blood Pressure 119/72 12/28/23 15:04 Pulse Oximetry 98 12/28/23 15:04 Oxygen Delivery Method Room Air 12/28/23 15:04 Temperature 98.9 F 12/31/23 11:00 Pulse Rate 84 12/31/23 11:00 Respiratory Rate 16 12/31/23 11:00 Blood Pressure 138/88 12/31/23 11:00 Pulse Oximetry 98 12/31/23 11:00 Oxygen Delivery Method Room Air 12/31/23 11:00 <Brenton Centeno MD - Last Filed: 12/31/23 15:52> Medications Administered Medications: Generic Name Dose Route Start Last Admin Trade Name Freq PRN Reason Stop Dose Admin Amlodipine Besylate 5 mg 12/29/23 21:00 12/30/23 20:52 Amlodipine 5 Mg Tablet PO 5 mg HS JESSY Administration Carvedilol 12.5 mg 12/29/23 21:00 12/31/23 09:41 Carvedilol 6.25 Mg Tablet PO 12.5 mg BID JESSY Administration Enoxaparin Sodium 40 mg 12/30/23 21:00 12/30/23 20:53 Enoxaparin 40 Mg/0.4 Ml Inj SUBCUT Not Given HS [facility] Dextrose/Lactated Ringer's 1,000 mls @ 125 mls/hr 12/30/23 10:48 12/31/23 13:53 5 % Dextrose In Lac Ringer's IV 125 mls/hr .Q8H JESSY Administration Metronidazole 500 mg in 100 mls @ 100 mls/hr 12/31/23 10:00 12/31/23 12:26 Metronidazole IVPB 100 mls/hr Q8H [facility] Administration Insulin Aspart 8 unit 12/29/23 12:00 12/31/23 12:23 Insulin Aspart 100 Unit/Ml SUBCUT Not Given TIDWM [facility] Insulin Aspart 0 unit 12/29/23 17:30 12/31/23 11:48 Insulin Aspart 100 Unit/Ml SUBCUT Not Given ACHS [facility] Protocol Insulin Detemir 10 unit 12/30/23 09:00 12/31/23 09:46 Insulin Detemir (Levemir) 100 Unit/Ml SUBCUT 10 unit QAM JESSY Administration Levothyroxine Sodium 75 mcg 12/30/23 08:15 12/31/23 09:41 Levothyroxine 75 Mcg Tablet PO 75 mcg 0700 JESSY Administration Mycophenolate Mofetil 500 mg 12/29/23 21:00 12/31/23 09:42 Mycophenolate Mofetil 250 Mg Capsule PO 500 mg BID JESSY Administration Oxycodone HCl 2.5 - 5 mg 12/29/23 14:48 12/30/23 21:45 Oxycodone 5 Mg Tablet PO 5 mg Q4H PRN Administration Pain Prednisone 5 mg 12/30/23 09:00 12/31/23 09:43 Prednisone 5 Mg Tablet PO 5 mg QAM JESSY Administration Sodium Chloride 5 ml 12/29/23 21:00 12/31/23 09:48 Sodium Chloride 0.9 % (Flush) 10 Ml Syringe IVF Not Given BID JESSY Tacrolimus 2 mg 12/30/23 09:00 12/31/23 09:49 Tacrolimus 0.5 Mg Capsule PO 2 mg DAILY JESSY Administration Tacrolimus 1 mg 12/29/23 21:00 12/30/23 20:52 Tacrolimus 0.5 Mg Capsule PO 1 mg HS JESSY Administration Vancomycin HCl 125 mg 12/30/23 23:20 12/31/23 13:53 Vancomycin 125 Mg Capsule PO 01/09/24 23:19 125 mg QID JESSY Administration Zolpidem Tartrate 5 mg 12/29/23 14:55 12/31/23 02:03 Zolpidem 5 Mg Tablet PO 5 mg HS PRN Administration Discontinued Medications Generic Name Dose Route Start Last Admin Trade Name Freq PRN Reason Stop Dose Admin Enoxaparin Sodium 40 mg 12/29/23 12:30 12/29/23 14:27 Enoxaparin 40 Mg/0.4 Ml Inj SUBCUT 40 mg Q24H JSESY Administration Hydromorphone HCl 0.5 mg 12/29/23 09:07 12/29/23 09:22 Hydromorphone 0.5 Mg/0.5 Ml Inj IVP 0.5 mg ONCE PRN Administration pain Piperacillin Sod/Tazobactam 100 mls @ 200 mls/hr 12/28/23 17:49 12/28/23 19:11 Sod 3.375 gm/ Sodium Chloride IVPB 12/28/23 17:50 Infused ONCE ONE Infusion Lactated Ringer's 1,000 mls @ 35 mls/hr 12/28/23 18:10 12/30/23 18:58 Lactated Ringers 1000 Ml IV Not Given .Q24H JESSY Piperacillin Sod/Tazobactam 100.01 mls @ 200 mls/hr 12/28/23 23:50 12/30/23 18:58 Sod 2.25 mg/ Sodium Chloride IVPB Not Given Q6H JESSY Lactated Ringer's 1,000 mls @ 75 mls/hr 12/28/23 18:40 12/30/23 18:57 Lactated Ringers 1000 Ml IV Infused .[id number] JESSY Infusion Piperacillin Sod/Tazobactam 100 mls @ 200 mls/hr 12/29/23 01:00 12/30/23 17:39 Sod 2.25 gm/ Sodium Chloride IVPB Not Given Q6H JESSY Sodium Chloride 1,000 mls @ 75 mls/hr 12/29/23 00:52 12/30/23 17:39 0.9 % Sodium Chloride 1000 Ml IV Not Given .[id number] JESSY Piperacillin Sod/Tazobactam 100 mls @ 200 mls/hr 12/29/23 15:00 12/31/23 09:42 Sod 2.25 gm/ Sodium Chloride IVPB 200 mls/hr Q6H JSESY Administration Potassium Chloride/Sodium Chloride 1,000 mls @ 100 mls/hr 12/29/23 14:50 12/30/23 17:39 0.9 % Sodium Ch + Kcl 20 Meq/L IV Infused .Q10H JESSY Infusion Levothyroxine Sodium 75 mcg 12/30/23 09:00 12/29/23 09:30 Levothyroxine 75 Mcg Tablet PO 75 mcg DAILY JESSY Administration Morphine Sulfate 2 mg 12/28/23 15:44 12/28/23 16:04 Morphine 2 Mg/Ml Inj IVP 12/28/23 15:45 2 mg ONCE ONE Administration Morphine Sulfate 2 mg 12/28/23 18:07 12/28/23 18:31 Morphine 2 Mg/Ml Inj IVP 12/28/23 18:08 2 mg ONCE ONE Administration Ondansetron HCl 4 mg 12/28/23 15:44 12/28/23 16:05 Ondansetron 2 Mg/Ml Inj IVP 12/28/23 15:45 4 mg ONCE ONE Administration Pantoprazole Sodium 40 mg 12/29/23 14:48 12/29/23 15:22 Pantoprazole Sodium 40 Mg Inj IVP 12/29/23 14:49 40 mg ONCE ONE Administration Trazodone HCl 50 mg 12/28/23 19:25 12/28/23 22:49 Trazodone Hcl 50 Mg Tablet PO 50 mg HS PRN Administration <Sobia Jurado MD - Last Filed: 12/29/23 14:20> Generic Name Dose Route Start Last Admin Trade Name Freq PRN Reason Stop Dose Admin Amlodipine Besylate 5 mg 12/29/23 21:00 12/30/23 20:52 Amlodipine 5 Mg Tablet PO 5 mg HS JESSY Administration Carvedilol 12.5 mg 12/29/23 21:00 12/31/23 09:41 Carvedilol 6.25 Mg Tablet PO 12.5 mg BID JESSY Administration Enoxaparin Sodium 40 mg 12/30/23 21:00 12/30/23 20:53 Enoxaparin 40 Mg/0.4 Ml Inj SUBCUT Not Given HS JESSY Dextrose/Lactated Ringer's 1,000 mls @ 125 mls/hr 12/30/23 10:48 12/31/23 13:53 5 % Dextrose In Lac Ringer's IV 125 mls/hr .Q8H JESSY Administration Metronidazole 500 mg in 100 mls @ 100 mls/hr 12/31/23 10:00 12/31/23 12:26 Metronidazole IVPB 100 mls/hr Q8H [facility] Administration Insulin Aspart 8 unit 12/29/23 12:00 12/31/23 12:23 Insulin Aspart 100 Unit/Ml SUBCUT Not Given TIDWM [facility] Insulin Aspart 0 unit 12/29/23 17:30 12/31/23 11:48 Insulin Aspart 100 Unit/Ml SUBCUT Not Given ACHS [facility] Protocol Insulin Detemir 10 unit 12/30/23 09:00 12/31/23 09:46 Insulin Detemir (Levemir) 100 Unit/Ml SUBCUT 10 unit QAM [facility] Administration Levothyroxine Sodium 75 mcg 12/30/23 08:15 12/31/23 09:41 Levothyroxine 75 Mcg Tablet PO 75 mcg 0700 JESSY Administration Mycophenolate Mofetil 500 mg 12/29/23 21:00 12/31/23 09:42 Mycophenolate Mofetil 250 Mg Capsule PO 500 mg BID JESSY Administration Oxycodone HCl 2.5 - 5 mg 12/29/23 14:48 12/30/23 21:45 Oxycodone 5 Mg Tablet PO 5 mg Q4H PRN Administration Pain Prednisone 5 mg 12/30/23 09:00 12/31/23 09:43 Prednisone 5 Mg Tablet PO 5 mg QAM JESSY Administration Sodium Chloride 5 ml 12/29/23 21:00 12/31/23 09:48 Sodium Chloride 0.9 % (Flush) 10 Ml Syringe IVF Not Given BID JESSY Tacrolimus 2 mg 12/30/23 09:00 12/31/23 09:49 Tacrolimus 0.5 Mg Capsule PO 2 mg DAILY JESSY Administration Tacrolimus 1 mg 12/29/23 21:00 12/30/23 20:52 Tacrolimus 0.5 Mg Capsule PO 1 mg HS JESSY Administration Vancomycin HCl 125 mg 12/30/23 23:20 12/31/23 13:53 Vancomycin 125 Mg Capsule PO 01/09/24 23:19 125 mg QID JESSY Administration Zolpidem Tartrate 5 mg 12/29/23 14:55 12/31/23 02:03 Zolpidem 5 Mg Tablet PO 5 mg HS PRN Administration Discontinued Medications Generic Name Dose Route Start Last Admin Trade Name Freq PRN Reason Stop Dose Admin Enoxaparin Sodium 40 mg 12/29/23 12:30 12/29/23 14:27 Enoxaparin 40 Mg/0.4 Ml Inj SUBCUT 40 mg Q24H JESSY Administration Hydromorphone HCl 0.5 mg 12/29/23 09:07 12/29/23 09:22 Hydromorphone 0.5 Mg/0.5 Ml Inj IVP 0.5 mg ONCE PRN Administration pain Piperacillin Sod/Tazobactam 100 mls @ 200 mls/hr 12/28/23 17:49 12/28/23 19:11 Sod 3.375 gm/ Sodium Chloride IVPB 12/28/23 17:50 Infused ONCE ONE Infusion Lactated Ringer's 1,000 mls @ 35 mls/hr 12/28/23 18:10 12/30/23 18:58 Lactated Ringers 1000 Ml IV Not Given .Q24H JESSY Piperacillin Sod/Tazobactam 100.01 mls @ 200 mls/hr 12/28/23 23:50 12/30/23 18:58 Sod 2.25 mg/ Sodium Chloride IVPB Not Given Q6H JESSY Lactated Ringer's 1,000 mls @ 75 mls/hr 12/28/23 18:40 12/30/23 18:57 Lactated Ringers 1000 Ml IV Infused .[id number] JESSY Infusion Piperacillin Sod/Tazobactam 100 mls @ 200 mls/hr 12/29/23 01:00 12/30/23 17:39 Sod 2.25 gm/ Sodium Chloride IVPB Not Given Q6H JESSY Sodium Chloride 1,000 mls @ 75 mls/hr 12/29/23 00:52 12/30/23 17:39 0.9 % Sodium Chloride 1000 Ml IV Not Given .[id number] JESSY Piperacillin Sod/Tazobactam 100 mls @ 200 mls/hr 12/29/23 15:00 12/31/23 09:42 Sod 2.25 gm/ Sodium Chloride IVPB 200 mls/hr Q6H JESSY Administration Potassium Chloride/Sodium Chloride 1,000 mls @ 100 mls/hr 12/29/23 14:50 12/30/23 17:39 0.9 % Sodium Ch + Kcl 20 Meq/L IV Infused .Q10H JESSY Infusion Levothyroxine Sodium 75 mcg 12/30/23 09:00 12/29/23 09:30 Levothyroxine 75 Mcg Tablet PO 75 mcg DAILY JESSY Administration Morphine Sulfate 2 mg 12/28/23 15:44 12/28/23 16:04 Morphine 2 Mg/Ml Inj IVP 12/28/23 15:45 2 mg ONCE ONE Administration Morphine Sulfate 2 mg 12/28/23 18:07 12/28/23 18:31 Morphine 2 Mg/Ml Inj IVP 12/28/23 18:08 2 mg ONCE ONE Administration Ondansetron HCl 4 mg 12/28/23 15:44 12/28/23 16:05 Ondansetron 2 Mg/Ml Inj IVP 12/28/23 15:45 4 mg ONCE ONE Administration Pantoprazole Sodium 40 mg 12/29/23 14:48 12/29/23 15:22 Pantoprazole Sodium 40 Mg Inj IVP 12/29/23 14:49 40 mg ONCE ONE Administration Trazodone HCl 50 mg 12/28/23 19:25 12/28/23 22:49 Trazodone Hcl 50 Mg Tablet PO 50 mg HS PRN Administration <Pushpa Banks MD - Last Filed: 12/28/23 22:58> Generic Name Dose Route Start Last Admin Trade Name Freq PRN Reason Stop Dose Admin Amlodipine Besylate 5 mg 12/29/23 21:00 12/30/23 20:52 Amlodipine 5 Mg Tablet PO 5 mg HS JESSY Administration Carvedilol 12.5 mg 12/29/23 21:00 12/31/23 09:41 Carvedilol 6.25 Mg Tablet PO 12.5 mg BID JESSY Administration Enoxaparin Sodium 40 mg 12/30/23 21:00 12/30/23 20:53 Enoxaparin 40 Mg/0.4 Ml Inj SUBCUT Not Given HS [facility] Dextrose/Lactated Ringer's 1,000 mls @ 125 mls/hr 12/30/23 10:48 12/31/23 13:53 5 % Dextrose In Lac Ringer's IV 125 mls/hr .Q8H JESSY Administration Metronidazole 500 mg in 100 mls @ 100 mls/hr 12/31/23 10:00 12/31/23 12:26 Metronidazole IVPB 100 mls/hr Q8H [facility] Administration Insulin Aspart 8 unit 12/29/23 12:00 12/31/23 12:23 Insulin Aspart 100 Unit/Ml SUBCUT Not Given TIDWM [facility] Insulin Aspart 0 unit 12/29/23 17:30 12/31/23 11:48 Insulin Aspart 100 Unit/Ml SUBCUT Not Given ACHS [facility] Protocol Insulin Detemir 10 unit 12/30/23 09:00 12/31/23 09:46 Insulin Detemir (Levemir) 100 Unit/Ml SUBCUT 10 unit QAM [facility] Administration Levothyroxine Sodium 75 mcg 12/30/23 08:15 12/31/23 09:41 Levothyroxine 75 Mcg Tablet PO 75 mcg 0700 JESSY Administration Mycophenolate Mofetil 500 mg 12/29/23 21:00 12/31/23 09:42 Mycophenolate Mofetil 250 Mg Capsule PO 500 mg BID JESSY Administration Oxycodone HCl 2.5 - 5 mg 12/29/23 14:48 12/30/23 21:45 Oxycodone 5 Mg Tablet PO 5 mg Q4H PRN Administration Pain Prednisone 5 mg 12/30/23 09:00 12/31/23 09:43 Prednisone 5 Mg Tablet PO 5 mg QAM JESSY Administration Sodium Chloride 5 ml 12/29/23 21:00 12/31/23 09:48 Sodium Chloride 0.9 % (Flush) 10 Ml Syringe IVF Not Given BID JESSY Tacrolimus 2 mg 12/30/23 09:00 12/31/23 09:49 Tacrolimus 0.5 Mg Capsule PO 2 mg DAILY JESSY Administration Tacrolimus 1 mg 12/29/23 21:00 12/30/23 20:52 Tacrolimus 0.5 Mg Capsule PO 1 mg HS JESSY Administration Vancomycin HCl 125 mg 12/30/23 23:20 12/31/23 13:53 Vancomycin 125 Mg Capsule PO 01/09/24 23:19 125 mg QID JESSY Administration Zolpidem Tartrate 5 mg 12/29/23 14:55 12/31/23 02:03 Zolpidem 5 Mg Tablet PO 5 mg HS PRN Administration Discontinued Medications Generic Name Dose Route Start Last Admin Trade Name Freq PRN Reason Stop Dose Admin Enoxaparin Sodium 40 mg 12/29/23 12:30 12/29/23 14:27 Enoxaparin 40 Mg/0.4 Ml Inj SUBCUT 40 mg Q24H JESSY Administration Hydromorphone HCl 0.5 mg 12/29/23 09:07 12/29/23 09:22 Hydromorphone 0.5 Mg/0.5 Ml Inj IVP 0.5 mg ONCE PRN Administration pain Piperacillin Sod/Tazobactam 100 mls @ 200 mls/hr 12/28/23 17:49 12/28/23 19:11 Sod 3.375 gm/ Sodium Chloride IVPB 12/28/23 17:50 Infused ONCE ONE Infusion Lactated Ringer's 1,000 mls @ 35 mls/hr 12/28/23 18:10 12/30/23 18:58 Lactated Ringers 1000 Ml IV Not Given .Q24H JESSY Piperacillin Sod/Tazobactam 100.01 mls @ 200 mls/hr 12/28/23 23:50 12/30/23 18:58 Sod 2.25 mg/ Sodium Chloride IVPB Not Given Q6H JESSY Lactated Ringer's 1,000 mls @ 75 mls/hr 12/28/23 18:40 12/30/23 18:57 Lactated Ringers 1000 Ml IV Infused .[id number] JESSY Infusion Piperacillin Sod/Tazobactam 100 mls @ 200 mls/hr 12/29/23 01:00 12/30/23 17:39 Sod 2.25 gm/ Sodium Chloride IVPB Not Given Q6H JESSY Sodium Chloride 1,000 mls @ 75 mls/hr 12/29/23 00:52 12/30/23 17:39 0.9 % Sodium Chloride 1000 Ml IV Not Given .[id number] JESSY Piperacillin Sod/Tazobactam 100 mls @ 200 mls/hr 12/29/23 15:00 12/31/23 09:42 Sod 2.25 gm/ Sodium Chloride IVPB 200 mls/hr Q6H JESSY Administration Potassium Chloride/Sodium Chloride 1,000 mls @ 100 mls/hr 12/29/23 14:50 12/30/23 17:39 0.9 % Sodium Ch + Kcl 20 Meq/L IV Infused .Q10H JESSY Infusion Levothyroxine Sodium 75 mcg 12/30/23 09:00 12/29/23 09:30 Levothyroxine 75 Mcg Tablet PO 75 mcg DAILY JESSY Administration Morphine Sulfate 2 mg 12/28/23 15:44 12/28/23 16:04 Morphine 2 Mg/Ml Inj IVP 12/28/23 15:45 2 mg ONCE ONE Administration Morphine Sulfate 2 mg 12/28/23 18:07 12/28/23 18:31 Morphine 2 Mg/Ml Inj IVP 12/28/23 18:08 2 mg ONCE ONE Administration Ondansetron HCl 4 mg 12/28/23 15:44 12/28/23 16:05 Ondansetron 2 Mg/Ml Inj IVP 12/28/23 15:45 4 mg ONCE ONE Administration Pantoprazole Sodium 40 mg 12/29/23 14:48 12/29/23 15:22 Pantoprazole Sodium 40 Mg Inj IVP 12/29/23 14:49 40 mg ONCE ONE Administration Trazodone HCl 50 mg 12/28/23 19:25 12/28/23 22:49 Trazodone Hcl 50 Mg Tablet PO 50 mg HS PRN Administration <Brenton Centeno MD - Last Filed: 12/31/23 15:52> MDM - Abdominal Pain MDM Narrative Medical decision making narrative: Patient was signed out to me by Dr. Kiran. Patient awaits transport to the [facility] for perforated diverticulitis. Started on Zosyn. I did receive phone call from pharmacy and they will renally does Zosyn. Will insure labs ordered for tomorrow morning. <Pushpa Banks MD - Last Filed: 12/28/23 22:58> Lab Data Attestation: I reviewed the patient's lab results. <Sobia Jurado MD - Last Filed: 12/29/23 14:20> Labs: Lab Results 12/28/23 12/28/23 12/29/23 Range/Units 15:58 18:45 07:38 WBC 5.61 (4.50-11.00) K/uL RBC 4.37 (4.00-5.20) m/uL Hgb 11.1 L (12.0-16.0) gm/dL Hct 35.4 (33.0-51.0) % MCV 81 (80-100) fL MCH 25 L (26-34) pg MCHC 31 L (32-36) gm/dL RDW Coeff of Amelia 13.7 (11.5-15.5) % Plt Count 197 (140-440) K/uL Neut % (Auto) 69.2 (42.0-72.0) % Lymph % (Auto) 14.4 L (20-44) % Wirt % (Auto) 11.4 H (0.0-11.0) % Eos % (Auto) 2.0 (0.0-7.0) % Baso % (Auto) 1.4 (0.0-3.0) % Neut # (Auto) 3.88 (1.7-7.0) K/uL Lymph # (Auto) 0.80 L (0.90-2.90) K/uL Wirt # (Auto) 0.60 (0.00-0.90) K/UL Eos # (Auto) 0.11 (0.00-0.50) K/uL Baso # (Auto) 0.08 (0.00-0.30) K/uL Abs Immat Gran (auto) 0.09 (0.00-0.30) K/uL Imm/Tot Granulo (auto) 1.6 % Sodium 138 (135-149) mmol/L Potassium 4.6 (3.6-5.1) mmol/L Chloride 107 (96-114) mmol/L Carbon Dioxide 20 (20-32) mmol/L Anion Gap 11 (7-15) mEq/L BUN 26 (7-30) mg/dL Creatinine 1.9 H (0.5-1.5) mg/dL Estimated Creat Clear 22.47 Estimated GFR 28 ml/min Glucose 146 H (60-115) mg/dL Lactate 0.7 0.6 (0.5-1.9) mmol/L Calcium 9.8 (8.4-10.6) mg/dL Total Bilirubin 0.3 (0.1-1.5) mg/dL AST 17 (12-35) U/L ALT 11 (4-35) U/L Alkaline Phosphatase 72 (40-150) U/L C-Reactive Protein 6.2 H 3.8 H (0.5-1.0) mg/dL Total Protein 7.4 (6.0-8.3) g/dL Albumin 4.2 (3.3-5.0) g/dL POC Glucose 105 (60-115) mg/dl 12/29/23 Range/Units 09:41 WBC (4.50-11.00) K/uL RBC (4.00-5.20) m/uL Hgb (12.0-16.0) gm/dL Hct (33.0-51.0) % MCV (80-100) fL MCH (26-34) pg MCHC (32-36) gm/dL RDW Coeff of Amelia (11.5-15.5) % Plt Count (140-440) K/uL Neut % (Auto) (42.0-72.0) % Lymph % (Auto) (20-44) % Wirt % (Auto) (0.0-11.0) % Eos % (Auto) (0.0-7.0) % Baso % (Auto) (0.0-3.0) % Neut # (Auto) (1.7-7.0) K/uL Lymph # (Auto) (0.90-2.90) K/uL Wirt # (Auto) (0.00-0.90) K/UL Eos # (Auto) (0.00-0.50) K/uL Baso # (Auto) (0.00-0.30) K/uL Abs Immat Gran (auto) (0.00-0.30) K/uL Imm/Tot Granulo (auto) % Sodium 139 (135-149) mmol/L Potassium 3.9 (3.6-5.1) mmol/L Chloride 114 (96-114) mmol/L Carbon Dioxide 18 L (20-32) mmol/L Anion Gap 7 (7-15) mEq/L BUN 22 (7-30) mg/dL Creatinine 1.5 (0.5-1.5) mg/dL Estimated Creat Clear 28.46 Estimated GFR 37 ml/min Glucose 87 (60-115) mg/dL Lactate (0.5-1.9) mmol/L Calcium 9.0 (8.4-10.6) mg/dL Total Bilirubin (0.1-1.5) mg/dL AST (12-35) U/L ALT (4-35) U/L Alkaline Phosphatase (40-150) U/L C-Reactive Protein (0.5-1.0) mg/dL Total Protein (6.0-8.3) g/dL Albumin (3.3-5.0) g/dL POC Glucose (60-115) mg/dl <Sobia Jurado MD - Last Filed: 12/29/23 14:20> Lab Results 12/28/23 12/28/23 12/29/23 Range/Units 15:58 18:45 07:38 WBC 5.61 (4.50-11.00) K/uL RBC 4.37 (4.00-5.20) m/uL Hgb 11.1 L (12.0-16.0) gm/dL Hct 35.4 (33.0-51.0) % MCV 81 (80-100) fL MCH 25 L (26-34) pg MCHC 31 L (32-36) gm/dL RDW Coeff of Amelia 13.7 (11.5-15.5) % Plt Count 197 (140-440) K/uL Neut % (Auto) 69.2 (42.0-72.0) % Lymph % (Auto) 14.4 L (20-44) % Wirt % (Auto) 11.4 H (0.0-11.0) % Eos % (Auto) 2.0 (0.0-7.0) % Baso % (Auto) 1.4 (0.0-3.0) % Neut # (Auto) 3.88 (1.7-7.0) K/uL Lymph # (Auto) 0.80 L (0.90-2.90) K/uL Wirt # (Auto) 0.60 (0.00-0.90) K/UL Eos # (Auto) 0.11 (0.00-0.50) K/uL Baso # (Auto) 0.08 (0.00-0.30) K/uL Abs Immat Gran (auto) 0.09 (0.00-0.30) K/uL Imm/Tot Granulo (auto) 1.6 % Sodium 138 (135-149) mmol/L Potassium 4.6 (3.6-5.1) mmol/L Chloride 107 (96-114) mmol/L Carbon Dioxide 20 (20-32) mmol/L Anion Gap 11 (7-15) mEq/L BUN 26 (7-30) mg/dL Creatinine 1.9 H (0.5-1.5) mg/dL Estimated Creat Clear 22.47 Estimated GFR 28 ml/min Glucose 146 H (60-115) mg/dL Lactate 0.7 0.6 (0.5-1.9) mmol/L Calcium 9.8 (8.4-10.6) mg/dL Total Bilirubin 0.3 (0.1-1.5) mg/dL AST 17 (12-35) U/L ALT 11 (4-35) U/L Alkaline Phosphatase 72 (40-150) U/L C-Reactive Protein 6.2 H 3.8 H (0.5-1.0) mg/dL Total Protein 7.4 (6.0-8.3) g/dL Albumin 4.2 (3.3-5.0) g/dL POC Glucose 105 (60-115) mg/dl 03/26/24 Range/Units 09:41 WBC (4.50-11.00) K/uL RBC (4.00-5.20) m/uL Hgb (12.0-16.0) gm/dL Hct (33.0-51.0) % MCV (80-100) fL MCH (26-34) pg MCHC (32-36) gm/dL RDW Coeff of Amelia (11.5-15.5) % Plt Count (140-440) K/uL Neut % (Auto) (42.0-72.0) % Lymph % (Auto) (20-44) % Wirt % (Auto) (0.0-11.0) % Eos % (Auto) (0.0-7.0) % Baso % (Auto) (0.0-3.0) % Neut # (Auto) (1.7-7.0) K/uL Lymph # (Auto) (0.90-2.90) K/uL Wirt # (Auto) (0.00-0.90) K/UL Eos # (Auto) (0.00-0.50) K/uL Baso # (Auto) (0.00-0.30) K/uL Abs Immat Gran (auto) (0.00-0.30) K/uL Imm/Tot Granulo (auto) % Sodium 139 (135-149) mmol/L Potassium 3.9 (3.6-5.1) mmol/L Chloride 114 (96-114) mmol/L Carbon Dioxide 18 L (20-32) mmol/L Anion Gap 7 (7-15) mEq/L BUN 22 (7-30) mg/dL Creatinine 1.5 (0.5-1.5) mg/dL Estimated Creat Clear 28.46 Estimated GFR 37 ml/min Glucose 87 (60-115) mg/dL Lactate (0.5-1.9) mmol/L Calcium 9.0 (8.4-10.6) mg/dL Total Bilirubin (0.1-1.5) mg/dL AST (12-35) U/L ALT (4-35) U/L Alkaline Phosphatase (40-150) U/L C-Reactive Protein (0.5-1.0) mg/dL Total Protein (6.0-8.3) g/dL Albumin (3.3-5.0) g/dL POC Glucose (60-115) mg/dl <Pushpa Banks MD - Last Filed: 12/28/23 22:58> Lab Results 12/28/23 12/28/23 12/29/23 Range/Units 15:58 18:45 07:38 WBC 5.61 (4.50-11.00) K/uL RBC 4.37 (4.00-5.20) m/uL Hgb 11.1 L (12.0-16.0) gm/dL Hct 35.4 (33.0-51.0) % MCV 81 (80-100) fL MCH 25 L (26-34) pg MCHC 31 L (32-36) gm/dL RDW Coeff of Amelia 13.7 (11.5-15.5) % Plt Count 197 (140-440) K/uL Neut % (Auto) 69.2 (42.0-72.0) % Lymph % (Auto) 14.4 L (20-44) % Wirt % (Auto) 11.4 H (0.0-11.0) % Eos % (Auto) 2.0 (0.0-7.0) % Baso % (Auto) 1.4 (0.0-3.0) % Neut # (Auto) 3.88 (1.7-7.0) K/uL Lymph # (Auto) 0.80 L (0.90-2.90) K/uL Wirt # (Auto) 0.60 (0.00-0.90) K/UL Eos # (Auto) 0.11 (0.00-0.50) K/uL Baso # (Auto) 0.08 (0.00-0.30) K/uL Abs Immat Gran (auto) 0.09 (0.00-0.30) K/uL Imm/Tot Granulo (auto) 1.6 % Sodium 138 (135-149) mmol/L Potassium 4.6 (3.6-5.1) mmol/L Chloride 107 (96-114) mmol/L Carbon Dioxide 20 (20-32) mmol/L Anion Gap 11 (7-15) mEq/L BUN 26 (7-30) mg/dL Creatinine 1.9 H (0.5-1.5) mg/dL Estimated Creat Clear 22.47 Estimated GFR 28 ml/min Glucose 146 H (60-115) mg/dL Lactate 0.7 0.6 (0.5-1.9) mmol/L Calcium 9.8 (8.4-10.6) mg/dL Total Bilirubin 0.3 (0.1-1.5) mg/dL AST 17 (12-35) U/L ALT 11 (4-35) U/L Alkaline Phosphatase 72 (40-150) U/L C-Reactive Protein 6.2 H 3.8 H (0.5-1.0) mg/dL Total Protein 7.4 (6.0-8.3) g/dL Albumin 4.2 (3.3-5.0) g/dL POC Glucose 105 (60-115) mg/dl 12/29/23 Range/Units 09:41 WBC (4.50-11.00) K/uL RBC (4.00-5.20) m/uL Hgb (12.0-16.0) gm/dL Hct (33.0-51.0) % MCV (80-100) fL MCH (26-34) pg MCHC (32-36) gm/dL RDW Coeff of Amelia (11.5-15.5) % Plt Count (140-440) K/uL Neut % (Auto) (42.0-72.0) % Lymph % (Auto) (20-44) % Wirt % (Auto) (0.0-11.0) % Eos % (Auto) (0.0-7.0) % Baso % (Auto) (0.0-3.0) % Neut # (Auto) (1.7-7.0) K/uL Lymph # (Auto) (0.90-2.90) K/uL Wirt # (Auto) (0.00-0.90) K/UL Eos # (Auto) (0.00-0.50) K/uL Baso # (Auto) (0.00-0.30) K/uL Abs Immat Gran (auto) (0.00-0.30) K/uL Imm/Tot Granulo (auto) % Sodium 139 (135-149) mmol/L Potassium 3.9 (3.6-5.1) mmol/L Chloride 114 (96-114) mmol/L Carbon Dioxide 18 L (20-32) mmol/L Anion Gap 7 (7-15) mEq/L BUN 22 (7-30) mg/dL Creatinine 1.5 (0.5-1.5) mg/dL Estimated Creat Clear 28.46 Estimated GFR 37 ml/min Glucose 87 (60-115) mg/dL Lactate (0.5-1.9) mmol/L Calcium 9.0 (8.4-10.6) mg/dL Total Bilirubin (0.1-1.5) mg/dL AST (12-35) U/L ALT (4-35) U/L Alkaline Phosphatase (40-150) U/L C-Reactive Protein (0.5-1.0) mg/dL Total Protein (6.0-8.3) g/dL Albumin (3.3-5.0) g/dL POC Glucose (60-115) mg/dl <Brenton Centeno MD - Last Filed: 12/31/23 15:52> Imaging Data CT scan - abdomen: Attestation: I have reviewed the pertinent imaging results. <Sobia Jurado MD - Last Filed: 12/29/23 14:20> Radiologist's impression: Patient: PRAVEEN BRITTON Facility:?[facility] Patient ID:?[id number] Site Patient ID:?[id number]. Site :?[id number] Study:?CT Abdomen/Pelvis W/O-12/28/2023 4:47:21 PM Ordering Physician:MELVIN Final Report: Indication: ABD PAIN, NAUSEA, VOMITING Technique: Noncontrast CT of the abdomen and pelvis was obtained. Please note that all CT scans at this facility use dose modulation, iterative reconstruction, and/or weight-based dosing when appropriate to reduce radiation dose to as low as reasonably achievable. Comparison: None. Findings: Lower thorax: Normal. Liver and biliary tree: Hepatic cysts measuring up to 2.6 centimeter in the right liver (2/37). Additional subcentimeter hypoattenuating lesions are too small to characterize and are favored to represent cysts. Postsurgical change from liver transplantation. Dilated common bile duct measuring 1.8 centimeter. Gallbladder: Postsurgical changes from cholecystectomy. Spleen: Normal noncontrast appearance. Pancreas: Normal noncontrast appearance. Adrenal glands: Normal noncontrast appearance. Kidneys and ureters: Atrophic bilateral kidneys. No hydronephrosis. No obstructing renal calculi. Right pelvic transplant kidney without hydronephrosis. Gastrointestinal tract: Gdwnkfma-ui-yifrpw sigmoid diverticulosis with moderate wall thickening and fat stranding in the proximal sigmoid colon (2/115). No evidence of bowel obstruction. Peritoneal cavity: 1.8 x 1.4 centimeter gas containing collection is seen adjacent to the sigmoid colon (2/114). Additional subcentimeter gas collection is seen tracking cranially (2/106). Moderate fat stranding surrounding the sigmoid colon. Bladder: Decompressed. Pelvic organs: Normal. Vasculature: Moderate calcification. Lymph nodes: Normal. Abdominal wall: Normal. Musculoskeletal: Mild degenerative changes of the bilateral hips. Moderate multilevel degenerative changes of the visualized spine. Osteopenia. Moderate L3 superior endplate compression deformity. Impression: 1. Moderate to severe sigmoid diverticulosis with moderate wall thickening and fat stranding in the proximal sigmoid colon; there are small gas containing collections adjacent to the sigmoid colon. Findings are compatible with complicated diverticulitis with small areas of contained perforation. 2. Dilated common bile duct. Consider correlation with bilirubin levels to exclude obstruction. 3. Age-indeterminate moderate L3 superior endplate compression deformity. Please note that all CT scans at this facility use dose modulation, iterative reconstruction, and/or weight-based dosing when appropriate to reduce radiation dose to as low as reasonably achievable. Dictated by Erwin Kline MD @ 12/28/2023 5:22:47 PM (Electronic Signature) <Sobia Jurado MD - Last Filed: 12/29/23 14:20> Discharge Plan Discharge Clinical Impression: Perforation of sigmoid colon due to diverticulitis, Kidney transplant recipient, Liver transplant recipient <Sobia Jurado MD - Last Filed: 12/29/23 14:20> Patient Disposition: Admitted As Observation <Sobia Jurado MD - Last Filed: 12/29/23 14:20> Discharge Location: [facility] <Sobia Jurado MD - Last Filed: 12/29/23 14:20>
--- NOTE | 2023-12-28 15:45 | CT_ITS ---
Patient: PRAVEEN BRITTON Facility:?[facility] Patient ID:?[id number] Site Patient ID:?[id number]. Site :?[id number] Study:?CT-Abdomen/Pelvis W/O-12/28/2023 4:47:21 PM Ordering Physician:MELVIN Final Report: Indication: ABD PAIN, NAUSEA, VOMITING Technique: Noncontrast CT of the abdomen and pelvis was obtained. Please note that all CT scans at this facility use dose modulation, iterative reconstruction, and/or weight-based dosing when appropriate to reduce radiation dose to as low as reasonably achievable. Comparison: None. Findings: Lower thorax: Normal. Liver and biliary tree: Hepatic cysts measuring up to 2.6 centimeter in the right liver (2/37). Additional subcentimeter hypoattenuating lesions are too small to characterize and are favored to represent cysts. Postsurgical change from liver transplantation. Dilated common bile duct measuring 1.8 centimeter. Gallbladder: Postsurgical changes from cholecystectomy. Spleen: Normal noncontrast appearance. Pancreas: Normal noncontrast appearance. Adrenal glands: Normal noncontrast appearance. Kidneys and ureters: Atrophic bilateral kidneys. No hydronephrosis. No obstructing renal calculi. Right pelvic transplant kidney without hydronephrosis. Gastrointestinal tract: Rmarvvoo-ui-qdhlrq sigmoid diverticulosis with moderate wall thickening and fat stranding in the proximal sigmoid colon (2/115). No evidence of bowel obstruction. Peritoneal cavity: 1.8 x 1.4 centimeter gas containing collection is seen adjacent to the sigmoid colon (2/114). Additional subcentimeter gas collection is seen tracking cranially (2/106). Moderate fat stranding surrounding the sigmoid colon. Bladder: Decompressed. Pelvic organs: Normal. Vasculature: Moderate calcification. Lymph nodes: Normal. Abdominal wall: Normal. Musculoskeletal: Mild degenerative changes of the bilateral hips. Moderate multilevel degenerative changes of the visualized spine. Osteopenia. Moderate L3 superior endplate compression deformity. Impression: 1. Moderate to severe sigmoid diverticulosis with moderate wall thickening and fat stranding in the proximal sigmoid colon; there are small gas containing collections adjacent to the sigmoid colon. Findings are compatible with complicated diverticulitis with small areas of contained perforation. 2. Dilated common bile duct. Consider correlation with bilirubin levels to exclude obstruction. 3. Age-indeterminate moderate L3 superior endplate compression deformity. Please note that all CT scans at this facility use dose modulation, iterative reconstruction, and/or weight-based dosing when appropriate to reduce radiation dose to as low as reasonably achievable. Dictated by Erwin Kline MD @ 12/28/2023 5:22:47 PM Signed by:?Erwin Kline MD @12/28/2023 5:22:47 PM (Electronic Signature)
[2023-12-28 16:03] LABS: Lactate* 0.7 mmol/L (0.5-1.9)
[2023-12-28] MEDS: MORPHINE 2 MG/ML inj IVP ×2 (16:04→18:31)
[2023-12-28] MEDS: ONDANSETRON 2 MG/ML inj 4 MG IVP (16:05)
[2023-12-28 16:21] LABS: Albumin* 4.2 g/dL (3.3-5.0); Chloride* 107 mmol/L (96-114)
[2023-12-28 16:22] LABS: Potassium* 4.6 mmol/L (3.6-5.1); Sodium* 138 mmol/L (135-149)
[2023-12-28 16:24] LABS: Alkaline Phosphatase* 72 U/L (40-150); Anion Gap 11 mEq/L (7-15); Aspartate Amino Transferase* 17 U/L (12-35); Bilirubin Total* 0.3 mg/dL (0.1-1.5); Carbon Dioxide* 20 mmol/L (20-32); Creatinine* 1.9 mg/dL (0.5-1.5); Est. Creatinine Clearance* 22.47; Estimated Glomerular Filt Rate 28 ml/min; Total Protein* 7.4 g/dL (6.0-8.3)
[2023-12-28 16:25] LABS: Alanine Aminotransferase* 11 U/L (4-35); Blood Urea Nitrogen* 26 mg/dL (7-30); Calcium* 9.8 mg/dL (8.4-10.6); Glucose* 146 mg/dL (60-115)
[2023-12-28 16:27] LABS: C Reactive Protein* 6.2 mg/dL (0.5-1.0)
[2023-12-28] MEDS: PIPERACILLIN/TAZOBACTAM 3.375 GM in 0.9 % SODIUM CHLORIDE Mini-bag 100 ML IVPB (18:34)
[2023-12-28 18:52] LABS: Glucose, Point-of-Care* 105 mg/dl (60-115)
[2023-12-28] MEDS: LACTATED RINGERS 1000 ML 1,000 ML 75 ML IV (19:20)
[2023-12-28] MEDS: TRAZODONE HCL 50 MG TABLET PO (22:49)
[2023-12-29] VITALS (32 sets, daily range): BP systolic 123–152; BP diastolic 62–102; PULSE 63–90; RESP 16–20; TEMP 36.3–37.4; O2SAT 90–98; BMI 23.6
[2023-12-29] MEDS: PIPERACILLIN/TAZOBACTAM 2.25 GM in 0.9 % SODIUM CHLORIDE Mini-bag 100 ML IVPB ×4 (00:42→21:27)
[2023-12-29] MEDS: 0.9 % SODIUM CHLORIDE 1000 ml 1,000 ML 75 ML IV (00:53)
[2023-12-29 07:44] LABS: Lactate* 0.6 mmol/L (0.5-1.9)
[2023-12-29 07:52] LABS: Basophils Absolute Auto 0.08 K/uL (0.00-0.30); Basophils Percent Auto 1.4 % (0.0-3.0); Eosinophils Absolute Auto 0.11 K/uL (0.00-0.50); Hematocrit 35.4 % (33.0-51.0); Hemoglobin* 11.1 gm/dL (12.0-16.0); Immature Granulocytes Abs Auto 0.09 K/uL (0.00-0.30); Immature Granulocytes Pct Auto 1.6 %; Lymphocytes Percent Auto 14.4 % (20-44); Mean Corpuscular HGB Conc 31 gm/dL (32-36); Mean Corpuscular Hemoglobin 25 pg (26-34); Mean Corpuscular Volume 81 fL (80-100); Monocytes Percent Auto 11.4 % (0.0-11.0); Neutrophils Absolute Auto 3.88 K/uL (1.7-7.0); Neutrophils Percent Auto 69.2 % (42.0-72.0); Platelet Count* 197 K/uL (140-440); RDW Coefficient of Variation % 13.7 % (11.5-15.5); Red Blood Count 4.37 m/uL (4.00-5.20); White Blood Count* 5.61 K/uL (4.50-11.00)
[2023-12-29 07:54] LABS: Slide Review Reflex No
[2023-12-29 08:10] LABS: C Reactive Protein* 3.8 mg/dL (0.5-1.0)
[2023-12-29] MEDS: HYDROmorphone 0.5 mg/0.5 ml inj IVP (09:22)
--- NOTE | 2023-12-29 09:22 | ED.NURSE ---
Patient reports pain at 7/10 with any movement in abdomen. PRN was requested from MD and 0.5 Dilaudid was given. Patient also requested to take home meds that she had in purse and MD gave OK to do so. She took home doses of prednisone, tacrolimus, levothyroxine, an microphenydate.
[2023-12-29] MEDS: LEVOTHYROXINE 75 MCG TABLET PO (09:30)
[2023-12-29] MEDS: predniSONE 5 MG TABLET PO (09:30)
[2023-12-29 10:25] LABS: Chloride* 114 mmol/L (96-114); Sodium* 139 mmol/L (135-149)
[2023-12-29 10:26] LABS: Potassium* 3.9 mmol/L (3.6-5.1)
[2023-12-29 10:28] LABS: Anion Gap 7 mEq/L (7-15); Carbon Dioxide* 18 mmol/L (20-32); Creatinine* 1.5 mg/dL (0.5-1.5); Est. Creatinine Clearance* 28.46; Estimated Glomerular Filt Rate 37 ml/min
[2023-12-29 10:29] LABS: Blood Urea Nitrogen* 22 mg/dL (7-30); Glucose* 87 mg/dL (60-115)
--- NOTE | 2023-12-29 12:15 | P.GSCN_ITS ---
History of Present Illness Consult details Date Seen: 12/29/23 Consult date: 12/29/23 Narrative: The patient is a 73-year-old female with a history of liver and kidney transplant in 2017, on immunosuppression, history of MRSA, hepatitis-C, chronic kidney disease and diabetes on insulin, who presented to our emergency department yesterday with abdominal pain. She was found to have diverticulitis with perforation. Attempt was made to transfer her to a transplant center (she underwent transplantation at [facility], however last year transferred her care to the [facility]), however no beds were available at either [facility] or the [facility]. After waiting in the emergency department overnight on antibiotics, she was admitted to the hospital here. She states that her symptoms began Thursday morning around 3:00 a.m.. She developed abdominal pain in the left lower abdomen. She also had uncontrolled diarrhea for several hours as well as nausea. She began vomiting bile. She noted a fever of up to 102. She states that she ?sweated it out overnight on Thursday however she woke up in the morning and her pain was horrible. She states that at that point the diarrhea had stopped, however it hurt to move and her to cough. She has had a poor appetite. Her son took her to urgent care and she was then sent to the emergency department. Here workup revealed a normal white blood cell count and diverticulitis with perforation. As mentioned she was unable to be transferred to a transplant facility. Since she has been admitted her pain has been better though it is still present. She has had a colonoscopy in the past which was normal. [facility] Medical History (Updated 12/29/23 @ 23:14 by Shari Xie MD) HRF (hepatorenal failure) ?K76.7 - Hepatorenal syndrome (ICD-10) History of hepatitis C ?Z86.19 - Personal history of other infectious and parasitic diseases (ICD- 10) Tenosynovitis of right ankle ?M65.9 - Synovitis and tenosynovitis, unspecified (ICD-10) Urinary tract infection ?N39.0 - Urinary tract infection, site not specified (ICD-10) Methicillin resistant Staphylococcus aureus culture positive ?Z22.322 - Carrier or suspected carrier of Methicillin resistant Staphylococcus aureus (ICD-10) Colon polyp ?K63.5 - Polyp of colon (ICD-10) Atrophic vaginitis ?N95.2 - Postmenopausal atrophic vaginitis (ICD-10) Diabetes mellitus due to underlying condition ?E08.9 - Diabetes mellitus due to underlying condition without complications (ICD-10) 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, uncomplicated (ICD-10) Osteoporosis ?M81.0 - Age-related osteoporosis without current pathological fracture (ICD- 10) CKD (chronic kidney disease) ?N18.9 - Chronic kidney disease, unspecified (ICD-10) Surgical History (Updated 12/29/23 @ 14:35 by Vanda Fajardo MD) History of appendectomy ?Z90.49 - Acquired absence of other specified parts of digestive tract (ICD- 10) Liver transplant recipient (~12/2016) ?Z94.4 - Liver transplant status (ICD-10) Kidney transplant recipient (~12/2016) ?Z94.0 - Kidney transplant status (ICD-10) Family History Mother COPD (chronic obstructive pulmonary disease) Sister Breast cancer Social History What is your current living situation?: I presently have a place to live Problems where you live: no known problems Problems where you live details: none In the past 12 months, utilities in danger of being shut off: no In past 12 months, lack of transportation kept you from medical appts, meetings, work, or getting things needed for daily living: no In the past 12 mos, have been you worried that your food would run out before you had money to buy more?: never true In the past 12 mos, the food you bought just didn't last and you didn't have money to buy more?: never true Highest level of school completed/degree received: some college, no degree Smoking Status: Never smoker Do you use any of these nicotine containing products: None How often do you have a drink containing alcohol: monthly or less AUDIT-C Alcohol total score: 1 Non-prescribed substance use: marijuana (any form) Non-prescribed substance use details: edibles Caffeine: Yes (tea in am) How often does anyone, including family, friends and others, physically hurt you : never How often does anyone, including family, friends and others, insult or talk down to you: never How often does anyone, including family, friends and others, threaten you with harm: never How often does anyone, including family, friends and others, scream or curse at you: never Little interest or pleasure in doing things: not at all Feeling down, depressed, or hopeless: not at all service: No Meds Home Medications and Allergies Home Medications Medication Instructions Recorded Confirmed Type amlodipine 5 mg tablet 5 mg PO HS 04/15/23 12/29/23 History atorvastatin 10 mg tablet 10 mg PO HS 04/15/23 12/29/23 History carvedilol 12.5 mg tablet 12.5 mg PO BID 04/15/23 12/29/23 History insulin aspart U-100 100 unit/mL 8 unit subcut TIDWM 04/15/23 12/29/23 History (3 mL) subcutaneous pen (Novolog FlexPen U-100 Insulin aspart) insulin degludec 100 unit/mL (3 20 unit subcut QA 04/15/23 12/29/23 History mL) subcutaneous pen (Tresiba FlexTouch U-100 insulin) mycophenolate mofetil 250 mg 500 mg PO BID 04/15/23 12/29/23 History capsule prednisone 5 mg tablet 5 mg PO QAM 04/15/23 12/29/23 History tacrolimus 1 mg capsule, 1 - 2 mg PO BID 04/15/23 12/29/23 History immediate-release trazodone 50 mg tablet 50 mg PO HS PRN 04/15/23 12/29/23 History blood sugar diagnostic (Accu-Chek #10 ea 05/13/23 12/28/23 History Guide test strips) blood-glucose meter (Accu-Chek #1 ea 05/13/23 12/28/23 History Guide Me Glucose Meter) lancets (Accu-Chek Softclix #100 ea 05/13/23 12/28/23 History Lancets) pen needle, diabetic 32 gauge x #50 ea 05/13/23 12/28/23 History 1/ (BD Ultra-Fine Micro Pen Needle) levothyroxine 75 mcg tablet 75 mcg PO DAILY 10/07/23 12/29/23 History acyclovir 400 mg tablet 400 mg PO BID PRN 12/29/23 12/29/23 History alendronate 70 mg tablet 70 mg PO QWEEK 12/29/23 12/29/23 History Allergies Allergy/AdvReac Type Severity Reaction Status Date / Time No Known Drug Allergies Allergy Verified 12/28/23 13:25 Exam Narrative: Exam Narrative: General: No acute distress CV: Regular rate Respiratory: Breathing nonlabored Abdomen: Scars consistent with surgical history, right lower quadrant kidney transplant scar and chevron scar from liver transplant. She is tender across her lower abdomen. She does have some guarding and rebound in the lower abdomen though she does not have significant pain with shaking the bed or the abdomen. Const: Vital Signs, click to edit/add: Vital Signs - 24 hr 12/28/23 15:04 12/28/23 15:45 12/28/23 16:17 Temperature 97.3 F L Pulse Rate 84 Pulse Rate [Right Pulse Oximeter] 85 Respiratory Rate 18 Blood Pressure Blood Pressure [Ri ght Upper Arm] 119/72 Pulse Oximetry 98 97 98 Oxygen Delivery Me thod Room Air 12/28/23 17:00 12/28/23 18:00 12/28/23 18:40 Temperature Pulse Rate 90 84 79 Pulse Rate [Right Pulse Oximeter] Respiratory Rate Blood Pressure 116/87 Blood Pressure [Ri ght Upper Arm] Pulse Oximetry 94 98 97 Oxygen Delivery Me thod 12/28/23 18:41 12/28/23 19:19 12/28/23 19:20 Temperature Pulse Rate 79 81 Pulse Rate [Right Pulse Oximeter] 82 Respiratory Rate 18 Blood Pressure 111/63 Blood Pressure [Ri ght Upper Arm] 116/87 Pulse Oximetry 98 99 89 Oxygen Delivery Me thod Room Air 12/28/23 20:31 12/28/23 20:32 12/28/23 20:45 Temperature 97.0 F L Pulse Rate 76 77 Pulse Rate [Right Pulse Oximeter] 76 Respiratory Rate 18 Blood Pressure 113/72 Blood Pressure [Ri ght Upper Arm] 113/72 Pulse Oximetry 98 96 98 Oxygen Delivery Me thod Room Air 12/28/23 21:00 12/28/23 21:29 12/28/23 21:42 Temperature Pulse Rate 77 73 Pulse Rate [Right Pulse Oximeter] 75 Respiratory Rate 18 Blood Pressure 120/62 Blood Pressure [Ri ght Upper Arm] 120/63 Pulse Oximetry 93 95 95 Oxygen Delivery Me od Room Air 12/28/23 22:00 12/28/23 22:45 12/28/23 22:47 Temperature Pulse Rate 71 Pulse Rate [Right Pulse Oximeter] 72 Respiratory Rate 16 Blood Pressure 115/67 Blood Pressure [Ri ght Upper Arm] 115/67 Pulse Oximetry 94 98 Oxygen Delivery Me thod Room Air 12/28/23 23:00 12/28/23 23:48 12/29/23 00:00 Temperature Pulse Rate 77 72 68 Pulse Rate [Right Pulse Oximeter] Respiratory Rate Blood Pressure 127/75 Blood Pressure [Ri ght Upper Arm] Pulse Oximetry 98 97 95 Oxygen Delivery Me thod 12/29/23 00:29 12/29/23 01:00 12/29/23 02:00 Temperature 99.3 F Pulse Rate 63 Pulse Rate [Right Pulse Oximeter] 72 79 Respiratory Rate 16 16 Blood Pressure Blood Pressure [Ri ght Upper Arm] 127/75 126/62 Pulse Oximetry 97 95 98 Oxygen Delivery Me thod Room Air Room Air 12/29/23 02:00 12/29/23 02:07 12/29/23 03:00 Temperature Pulse Rate 64 79 74 Pulse Rate [Right Pulse Oximeter] Respiratory Rate Blood Pressure 126/62 Blood Pressure [Ri ght Upper Arm] Pulse Oximetry 97 97 94 Oxygen Delivery Me thod 12/29/23 04:00 12/29/23 04:01 12/29/23 04:02 Temperature Pulse Rate 68 70 Pulse Rate [Right Pulse Oximeter] 77 Respiratory Rate 16 Blood Pressure 136/73 Blood Pressure [Ri ght Upper Arm] 136/73 Pulse Oximetry 95 97 97 Oxygen Delivery Me thod Room Air 12/29/23 05:00 12/29/23 06:00 12/29/23 06:02 Temperature Pulse Rate 69 70 78 Pulse Rate [Right Pulse Oximeter] Respiratory Rate Blood Pressure 128/69 Blood Pressure [Ri ght Upper Arm] Pulse Oximetry 95 93 97 Oxygen Delivery Me thod 12/29/23 06:39 12/29/23 07:00 12/29/23 07:11 Temperature 98.2 F Pulse Rate 65 Pulse Rate [Right Pulse Oximeter] 70 76 Respiratory Rate 18 20 Blood Pressure Blood Pressure [Ri ght Upper Arm] 128/69 Pulse Oximetry 94 97 97 Oxygen Delivery Me thod Room Air 12/29/23 08:00 12/29/23 08:02 12/29/23 08:03 Temperature Pulse Rate 63 65 64 Pulse Rate [Right Pulse Oximeter] Respiratory Rate Blood Pressure 138/79 Blood Pressure [Ri ght Upper Arm] Pulse Oximetry 96 96 95 Oxygen Delivery Me thod 12/29/23 09:28 Temperature Pulse Rate 80 Pulse Rate [Right Pulse Oximeter] Respiratory Rate 16 Blood Pressure Blood Pressure [Ri ght Upper Arm] Pulse Oximetry 94 Oxygen Delivery Me thod Results Labs Labs: Abnormal lab results 12/28/23 12/29/23 12/29/23 Range/Units 15:58 07:38 09:41 Hgb 11.1 L (12.0-16.0) gm/dL MCH 25 L (26-34) pg MCHC 31 L (32-36) gm/dL Lymph % (Auto) 14.4 L (20-44) % Gonzales % (Auto) 11.4 H (0.0-11.0) % Lymph # (Auto) 0.80 L (0.90-2.90) K/uL Carbon Dioxide 18 L (20-32) mmol/L Creatinine 1.9 H (0.5-1.5) mg/dL Glucose 146 H (60-115) mg/dL C-Reactive Protein 6.2 H 3.8 H (0.5-1.0) mg/dL Diabetes panel 12/28/23 12/29/23 Range/Units 15:58 09:41 Sodium 138 139 (135-149) mmol/L Potassium 4.6 3.9 (3.6-5.1) mmol/L Chloride 107 114 (96-114) mmol/L Carbon Dioxide 20 18 L (20-32) mmol/L BUN 26 22 (7-30) mg/dL Creatinine 1.9 H 1.5 (0.5-1.5) mg/dL Glucose 146 H 87 (60-115) mg/dL Calcium 9.8 9.0 (8.4-10.6) mg/dL AST 17 (12-35) U/L ALT 11 (4-35) U/L Alkaline Phosphatase 72 (40-150) U/L Total Protein 7.4 (6.0-8.3) g/dL Albumin 4.2 (3.3-5.0) g/dL Calcium panel 12/28/23 12/29/23 Range/Units 15:58 09:41 Calcium 9.8 9.0 (8.4-10.6) mg/dL Albumin 4.2 (3.3-5.0) g/dL Pituitary panel 12/28/23 12/29/23 Range/Units 15:58 09:41 Sodium 138 139 (135-149) mmol/L Potassium 4.6 3.9 (3.6-5.1) mmol/L Chloride 107 114 (96-114) mmol/L Carbon Dioxide 20 18 L (20-32) mmol/L BUN 26 22 (7-30) mg/dL Creatinine 1.9 H 1.5 (0.5-1.5) mg/dL Glucose 146 H 87 (60-115) mg/dL Calcium 9.8 9.0 (8.4-10.6) mg/dL Adrenal panel 12/28/23 12/29/23 Range/Units 15:58 09:41 Sodium 138 139 (135-149) mmol/L Potassium 4.6 3.9 (3.6-5.1) mmol/L Chloride 107 114 (96-114) mmol/L Carbon Dioxide 20 18 L (20-32) mmol/L BUN 26 22 (7-30) mg/dL Creatinine 1.9 H 1.5 (0.5-1.5) mg/dL Glucose 146 H 87 (60-115) mg/dL Calcium 9.8 9.0 (8.4-10.6) mg/dL Total Bilirubin 0.3 (0.1-1.5) mg/dL AST 17 (12-35) U/L ALT 11 (4-35) U/L Alkaline Phosphatase 72 (40-150) U/L Total Protein 7.4 (6.0-8.3) g/dL Albumin 4.2 (3.3-5.0) g/dL All other labs normal. Imaging Abdomen CT scan report/results: report reviewed and image reviewed Additional studies: Patient: PRAVEEN BRITTON Facility:?[facility] Patient ID:?[id number] Site Patient ID:?[id number]. Site :?[id number] Study:?CT-Abdomen/Pelvis W/O-12/28/2023 4:47:21 PM Ordering Physician:?SUCHOMEL Final Report: Indication: ABD PAIN, NAUSEA, VOMITING Technique: Noncontrast CT of the abdomen and pelvis was obtained. Please note that all CT scans at this facility use dose modulation, iterative reconstruction, and/or weight-based dosing when appropriate to reduce radiation dose to as low as reasonably achievable. Comparison: None. Findings: Lower thorax: Normal. Liver and biliary tree: Hepatic cysts measuring up to 2.6 centimeter in the right liver (2/37). Additional subcentimeter hypoattenuating lesions are too small to characterize and are favored to represent cysts. Postsurgical change from liver transplantation. Dilated common bile duct measuring 1.8 centimeter. Gallbladder: Postsurgical changes from cholecystectomy. Spleen: Normal noncontrast appearance. Pancreas: Normal noncontrast appearance. Adrenal glands: Normal noncontrast appearance. Kidneys and ureters: Atrophic bilateral kidneys. No hydronephrosis. No obstructing renal calculi. Right pelvic transplant kidney without hydronephrosis. Gastrointestinal tract: [id number] sigmoid diverticulosis with moderate wall thickening and fat stranding in the proximal sigmoid colon (2/115). No evidence of bowel obstruction. Peritoneal cavity: 1.8 x 1.4 centimeter gas containing collection is seen adjacent to the sigmoid colon (2/114). Additional subcentimeter gas collection is seen tracking cranially (2/106). Moderate fat stranding surrounding the sigmoid colon. Bladder: Decompressed. Pelvic organs: Normal. Vasculature: Moderate calcification. Lymph nodes: Normal. Abdominal wall: Normal. Musculoskeletal: Mild degenerative changes of the bilateral hips. Moderate multilevel degenerative changes of the visualized spine. Osteopenia. Moderate L3 superior endplate compression deformity. Impression: 1. Moderate to severe sigmoid diverticulosis with moderate wall thickening and fat stranding in the proximal sigmoid colon; there are small gas containing collections adjacent to the sigmoid colon. Findings are compatible with complicated diverticulitis with small areas of contained perforation. 2. Dilated common bile duct. Consider correlation with bilirubin levels to exclude obstruction. 3. Age-indeterminate moderate L3 superior endplate compression deformity. Progress Note:A&P Assessment and plan (1) Perforation of sigmoid colon due to diverticulitis: Status: Acute (2) Liver transplant recipient: Status: Acute (3) Kidney transplant recipient: Status: Acute (4) Anemia of chronic disease: Status: Acute (5) CKD (chronic kidney disease): Status: Acute (6) Diabetes mellitus due to underlying condition: Status: Acute (7) Steroid dependent: Status: Acute (8) History of hepatitis C: Status: Acute (9) Immunosuppression due to drug therapy: Status: Acute Plan The patient is a 73-year-old female with multiple comorbidities including diabetes, kidney and transplant recipient on immunosuppression who now presents with perforated diverticulitis. Unfortunately have been unable to transfer the patient to a tertiary center secondary to bed availability. I discussed diverticulitis with the patient and the management of perforation. If she develops jimmy peritonitis then she would need emergency colectomy with colostomy. Preferably this would be done at a tertiary center where she has a transplant team who can help manage her transplant immunosuppression as occasionally in the ascending of acute infectious illness these medications need to be modified. Additionally she may benefit from Infectious Disease input. I also explained that she could develop an abscess. If this occurs and she would need to be transferred for drain placement as we are unable to do this here. If she improves clinically then I would recommend outpatient management with IV antibiotics. The patient has remained stable, however she still does have a fair amount of abdominal pain - she is afebrile, not tachycardic and white blood cell count is stable though her immunosuppression and cardiac medication could certainly mask a more profound immune response. I think this patient is best served at a transplant center, given her complex surgical history as well as her immunosuppressed state, however as she has been waiting for greater than 24 hours for transfer and appears to be stable, recommend continued IV antibiotics. If her clinical picture changes, we must make additional attempts to transfer her to another inpatient facility. Agree with broad IV antibiotics for now. Continue to trend labs, monitor for fever and tachycardia as well as monitor pain. I recommend NPO status until her pain has resolved. Once her pain resolves and she is tolerating a diet, and all other indicators of infection remains stable or are improved she could be discharged home on IV antibiotics. She should follow up however at the [facility] where she is followed by the transplant team. She should establish care with Colorectal surgery at their facility. After perforation, elective sigmoidectomy is often recommended in the setting chronic immunosuppression because of risk of sepsis with recurrence.
--- NOTE | 2023-12-29 13:35 | P.IMCN_ITS ---
Date of Consult Consult date: 12/29/23 Requesting Physician: Other Primary Care Provider: Ashli Howell Consult Narrative Reason for consult: Narrative: ADMISSION HISTORY AND PHYSICAL - HOSPITALIST Chief Complaint: HPI: This is a 73-year-old who is status post liver and renal transplants who presented to the urgent care on December 27 with abdominal pain. She was sent from urgent care to the emergency room department. She reports watery diarrhea, nonbloody, fever to 102 and a 2-3 days prior to presentation. No vomiting, some nausea. She is immunocompromised as she is on immunosuppressants for her transplant status. She denies feeling this way before. No sick contacts. No recent travel. ER COURSE: 24 hours in the ED. labs, follow-up labs. Fluids. Imaging. Consultation. CODE STATUS: FULL CODE EMERGENCY CONTACT PLAN: Primary Contact? Augusto De? Son?Rel to Pat? [phone]?Cell Phone I've updated the PFSH, medications and allergies in the Expanse tabs. INVESTIGATIONS: LABS/MICRO/ECG/IMAGING Her workup includes labs, imaging, and consultations with our general surgeon and area tertiary care hospitals. Her CBC shows a normal white blood cell count. Hemoglobin that has been at about her baseline between 11.1 and 12.5. Platelet count is normal. And she has a mild decreased bicarb her electrolytes are otherwise normal. Her creatinine is 1.5 with a GFR 37. Hemoglobin A1c in October 2023 was 7. her lactate has been normal. CRP is down trending 6.2-3.8 her urine shows 1+ urine protein, 1+ urine bilirubin. Otherwise yellow clear. CT noncontrast abdomen pelvis Impression: 1. Moderate to severe sigmoid diverticulosis with moderate wall thickening and fat stranding in the proximal sigmoid colon; there are small gas containing collections adjacent to the sigmoid colon. Findings are compatible with complicated diverticulitis with small areas of contained perforation. 2. Dilated common bile duct. Consider correlation with bilirubin levels to exclude obstruction. 3. Age-indeterminate moderate L3 superior endplate compression deformity. No microbiology studies other than a urine that shows no growth REVIEW OF SYSTEMS: 12-point ROS completed with patient and negative unless otherwise stated in HPI or below. PHYSICAL EXAM: CONSTITUTIONAL: Conversive, good historian. A/O. Knows setting and context. Does not look septic or acutely ill. VITAL SIGNS: see record. HEENT: Normocephalic, atraumatic. PERRL, EOMI, conjunctivae pink, no scleral icterus. Ears and nose externally normal. Pharynx normal. NECK: No JVD. No carotid bruit, no thyromegaly, no adenopathy. CHEST: Clear to auscultation bilaterally HEART: S1 and S2 normal. No harsh murmurs. Edema MUSCULOSKELETAL: No gross joint deformity or swelling. ABDOMEN: Mild distention. Mild to moderate tenderness bilateral lower quadrants. No rebound. Good bowel sounds. NEURO: Cranial nerves intact. Grossly intact. No asymmetric findings. SKIN: No rashes, petechiae, concerning changes PSYCHIATRIC: Euthymic. ADMIT TO MEDSURG: FLOOR CARE DVT: Lovenox GI: PO intake/PPI Time spent: Today I spent 75 minutes seeing the patient, discussing the patient with ER staff, reviewing Expanse and EPIC notes/diagnostics, discussing the care plan with our care time that includes social work, PT/OT, pharmacy, RT, intermediate and documenting my impressions and plan in the medical record. HOSPITALIST CONSULT -ER boarding patient [facility] Medical History (Updated 12/29/23 @ 14:35 by Vanda Fajardo MD) HRF (hepatorenal failure) ?K76.7 - Hepatorenal syndrome (ICD-10) History of hepatitis C ?Z86.19 - Personal history of other infectious and parasitic diseases (ICD- 10) Tenosynovitis of right ankle ?M65.9 - Synovitis and tenosynovitis, unspecified (ICD-10) Urinary tract infection ?N39.0 - Urinary tract infection, site not specified (ICD-10) Methicillin resistant Staphylococcus aureus culture positive ?Z22.322 - Carrier or suspected carrier of Methicillin resistant Staphylococcus aureus (ICD-10) Colon polyp ?K63.5 - Polyp of colon (ICD-10) Atrophic vaginitis ?N95.2 - Postmenopausal atrophic vaginitis (ICD-10) Diabetes mellitus due to underlying condition ?E08.9 - Diabetes mellitus due to underlying condition without complications (ICD-10) 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, uncomplicated (ICD-10) Osteoporosis ?M81.0 - Age-related osteoporosis without current pathological fracture (ICD- 10) CKD (chronic kidney disease) ?N18.9 - Chronic kidney disease, unspecified (ICD-10) Surgical History (Updated 12/29/23 @ 14:35 by Vanda Fajardo MD) History of appendectomy ?Z90.49 - Acquired absence of other specified parts of digestive tract (ICD- 10) Liver transplant recipient (~12/2016) ?Z94.4 - Liver transplant status (ICD-10) Kidney transplant recipient (~12/2016) ?Z94.0 - Kidney transplant status (ICD-10) Family History Mother COPD (chronic obstructive pulmonary disease) Sister Breast cancer Social History Smoking Status: Never smoker How often do you have a drink containing alcohol: never AUDIT-C Alcohol total score: 0 Non-prescribed substance use: marijuana (any form) and other Non-prescribed substance use details: edibles Little interest or pleasure in doing things: not at all Feeling down, depressed, or hopeless: not at all service: No Meds Home Medications and Allergies Home Medications Medication Instructions Recorded Confirmed Type amlodipine 5 mg tablet 5 mg PO HS 04/15/23 12/29/23 History atorvastatin 10 mg tablet 10 mg PO HS 04/15/23 12/29/23 History carvedilol 12.5 mg tablet 12.5 mg PO BID 04/15/23 12/29/23 History insulin aspart U-100 100 unit/mL 8 unit subcut TIDWM 04/15/23 12/29/23 History (3 mL) subcutaneous pen (Novolog FlexPen U-100 Insulin aspart) insulin degludec 100 unit/mL (3 20 unit subcut QAM 04/15/23 12/29/23 History mL) subcutaneous pen (Tresiba FlexTouch U-100 insulin) mycophenolate mofetil 250 mg 500 mg PO BID 04/15/23 12/29/23 History capsule prednisone 5 mg tablet 5 mg PO QAM 04/15/23 12/29/23 History tacrolimus 1 mg capsule, 1 - 2 mg PO BID 04/15/23 12/29/23 History immediate-release trazodone 50 mg tablet 50 mg PO HS PRN 04/15/23 12/29/23 History blood sugar diagnostic (Accu-Chek #10 ea 05/13/23 12/28/23 History Guide test strips) blood-glucose meter (Accu-Chek #1 ea 05/13/23 12/28/23 History Guide Me Glucose Meter) lancets (Accu-Chek Softclix #100 ea 05/13/23 12/28/23 History Lancets) pen needle, diabetic 32 gauge x #50 ea 05/13/23 12/28/23 History 1/4 (BD Ultra-Fine Micro Pen Needle) levothyroxine 75 mcg tablet 75 mcg PO DAILY 10/07/23 12/29/23 History acyclovir 400 mg tablet 400 mg PO BID PRN 12/29/23 12/29/23 History alendronate 70 mg tablet 70 mg PO QWEEK 12/29/23 12/29/23 History Allergies Allergy/AdvReac Type Severity Reaction Status Date / Time No Known Drug Allergies Allergy Verified 12/28/23 13:25 Exam Const: Vital Signs, click to edit/add: Vital Signs - 24 hr 12/28/23 15:04 12/28/23 15:45 12/28/23 16:17 Temperature 97.3 F L Pulse Rate 84 Pulse Rate [Right Pulse Oximeter] 85 Respiratory Rate 18 Blood Pressure Blood Pressure [Ri ght Upper Arm] 119/72 Pulse Oximetry 98 [address] [facility] 12/28/23 17:00 12/28/23 18:00 12/28/23 18:40 Temperature Pulse Rate 90 84 79 Pulse Rate [Right Pulse Oximeter] Respiratory Rate Blood Pressure 116/87 Blood Pressure [Ri ght Upper Arm] Pulse Oximetry 94 98 97 Oxygen Delivery Tx thod 12/28/23 18:41 12/28/23 19:19 12/28/23 19:20 Temperature Pulse Rate 79 81 Pulse Rate [Right Pulse Oximeter] 82 Respiratory Rate 18 Blood Pressure 111/63 Blood Pressure [Ri ght Upper Arm] 116/87 Pulse Oximetry [address] [facility] 12/28/23 20:31 12/28/23 20:32 12/28/23 20:45 Temperature 97.0 F L Pulse Rate 76 77 Pulse Rate [Right Pulse Oximeter] 76 Respiratory Rate 18 Blood Pressure 113/72 Blood Pressure [Ri ght Upper Arm] 113/72 Pulse Oximetry 98 96 98 Oxygen Delivery Me thod Room Air 12/28/23 21:00 12/28/23 21:29 12/28/23 21:42 Temperature Pulse Rate 77 73 Pulse Rate [Right Pulse Oximeter] 75 Respiratory Rate 18 Blood Pressure 120/62 Blood Pressure [Ri ght Upper Arm] 120/63 Pulse Oximetry 93 95 95 Oxygen Delivery Me thod Room Air 12/28/23 22:00 12/28/23 22:45 12/28/23 22:47 Temperature Pulse Rate 71 Pulse Rate [Right Pulse Oximeter] 72 Respiratory Rate 16 Blood Pressure 115/67 Blood Pressure [Ri ght Upper Arm] 115/67 Pulse Oximetry 94 98 Oxygen Delivery Me thod Room Air 12/28/23 23:00 12/28/23 23:48 12/29/23 00:00 Temperature Pulse Rate 77 72 68 Pulse Rate [Right Pulse Oximeter] Respiratory Rate Blood Pressure 127/75 Blood Pressure [Ri ght Upper Arm] Pulse Oximetry 98 97 95 Oxygen Delivery Me thod 12/29/23 00:29 12/29/23 01:00 12/29/23 02:00 Temperature 99.3 F Pulse Rate 63 Pulse Rate [Right Pulse Oximeter] 72 79 Respiratory Rate 16 16 Blood Pressure Blood Pressure [Ri ght Upper Arm] 127/75 126/62 Pulse Oximetry 97 95 98 Oxygen Delivery Me thod Room Air Room Air 12/29/23 02:00 12/29/23 02:07 12/29/23 03:00 Temperature Pulse Rate 64 79 74 Pulse Rate [Right Pulse Oximeter] Respiratory Rate Blood Pressure 126/62 Blood Pressure [Ri ght Upper Arm] Pulse Oximetry 97 97 94 Oxygen Delivery Me thod 12/29/23 04:00 12/29/23 04:01 12/29/23 04:02 Temperature Pulse Rate 68 70 Pulse Rate [Right Pulse Oximeter] 77 Respiratory Rate 16 Blood Pressure 136/73 Blood Pressure [Ri ght Upper Arm] 136/73 Pulse Oximetry 95 97 97 Oxygen Delivery Me thod Room Air 12/29/23 05:00 12/29/23 06:00 12/29/23 06:02 Temperature Pulse Rate 69 70 78 Pulse Rate [Right Pulse Oximeter] Respiratory Rate Blood Pressure 128/69 Blood Pressure [Ri ght Upper Arm] Pulse Oximetry 95 93 97 Oxygen Delivery Me thod 12/29/23 06:39 12/29/23 07:00 12/29/23 07:11 Temperature 98.2 F Pulse Rate 65 Pulse Rate [Right Pulse Oximeter] 70 76 Respiratory Rate 18 20 Blood Pressure Blood Pressure [Ri ght Upper Arm] 128/69 Pulse Oximetry 94 97 97 Oxygen Delivery Me thod Room Air 12/29/23 08:00 12/29/23 08:02 12/29/23 08:03 Temperature Pulse Rate 63 65 64 Pulse Rate [Right Pulse Oximeter] Respiratory Rate Blood Pressure 138/79 Blood Pressure [Ri ght Upper Arm] Pulse Oximetry 96 96 95 Oxygen Delivery Me thod 12/29/23 09:28 Temperature Pulse Rate 80 Pulse Rate [Right Pulse Oximeter] Respiratory Rate 16 Blood Pressure Blood Pressure [Ri ght Upper Arm] Pulse Oximetry 94 Oxygen Delivery Me thod Labs Labs: Short CBC 12/29/23 Range/Units 07:38 WBC 5.61 (4.50-11.00) K/uL Hgb 11.1 L (12.0-16.0) gm/dL Hct 35.4 (33.0-51.0) % Plt Count 197 (140-440) K/uL BMP 12/28/23 12/29/23 15:58 09:41 Sodium 138 139 Potassium 4.6 3.9 Chloride 107 114 Carbon Dioxide 20 18 L BUN 26 22 Creatinine 1.9 H 1.5 Glucose 146 H 87 Calcium 9.8 9.0 Liver Function 12/28/23 Range/Units 15:58 Total Bilirubin 0.3 (0.1-1.5) mg/dL AST 17 (12-35) U/L ALT 11 (4-35) U/L Alkaline Phosphatase 72 (40-150) U/L Albumin 4.2 (3.3-5.0) g/dL Assessment and Plan Assessment and plan (1) Perforation of sigmoid colon due to diverticulitis: Problem comment: -continue Zosyn, renally dose if needed -discussed with our general surgery team and her transplant team -if she were to need surgery she would need to go up to the [facility] -transplant team recommended extending antibiotic as her infection will be slower to resolve given her immunosuppressant -they are available for phone consult p.r.n. 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 Status: Acute (6) Diabetes mellitus due to underlying condition: Problem comment: -monitor glucose and sliding scale with home regimen if she is tolerating a diet Status: Acute (7) Steroid dependent: Problem comment: Daily 5 mg prednisone as part of her immunosuppression posttransplant Status: Acute (8) Hypothyroidism: Problem comment: Levothyroxine replacement Status: Acute (9) Osteoporosis: Problem comment: Fosamax weekly Status: Acute (10) History of hepatitis C: Problem comment: As etiology of liver failure and had a renal syndrome leading to simultaneous liver kidney transplant Status: Acute (11) Methicillin resistant Staphylococcus aureus culture positive: Status: Acute
[2023-12-29] MEDS: ENOXAPARIN 40 MG/0.4 ML INJ SUBCUT (14:27)
--- NOTE | 2023-12-29 14:39 | PM.IMHP1 ---
Hospitalist- H&P: HPI History of Present Illness Date Seen: 12/29/23 Chief complaint: Lower abdominal pain, diarrhea, loss of rogers Narrative: ADMISSION HISTORY AND PHYSICAL - HOSPITALIST Chief Complaint: Belly pain, fever HPI: 73-year-old with a history of liver and renal transplants presents with acute abdominal pain. Patient had initially been seen in the urgent care on 12/27 and was told to present to our ER on the same day. Patient has been in the ER for 24 hours as they were attempting to transfer her to tertiary care. Her abdominal pain has been identified as acute perforated sigmoid diverticulitis. However she has had a stable 24 hours and a decrease in her pain and fever. It is felt at this time she is not a surgical candidate. Her perforations are limited and small. She has not evidence of abscess. No evidence of sepsis. Her labs have improved over 24 hours including a return to her normal creatinine. In consultation with our general surgery staff and her transplant team at the [facility] it was felt safe that she could admit here to [facility] for continued conservative management of her acute complicated diverticulitis. ER COURSE: Fluids, antibiotics, labs, imaging. Consultation with tertiary care. CODE STATUS: FULL CODE EMERGENCY CONTACT PLAN: Augusto De? Son?Rel to [facility]? [phone]?Cell Phone? I've updated the PFSH, medications and allergies in the Expanse tabs. INVESTIGATIONS: LABS/MICRO/ECG/IMAGING CBC REFLECTS A WHITE BLOOD CELL COUNT THAT HAS GONE FROM 10.9 DOWN TO 5.6 OVERNIGHT Her hemoglobin is at her baseline which runs 11-12. Her platelets are normal Her creatinine initially was 1.9 and is down to 1.5 which is very near her baseline. She has got a mild acidosis with a bicarb of 18. A VBG has not yet been checked her other electrolytes are normal. Her A1c was 7.5 in October. Her C reactive protein has gone from 6.2 down to 3.8 ABD/PELVIS CT 1. Moderate to severe sigmoid diverticulosis with moderate wall thickening and fat stranding in the proximal sigmoid colon; there are small gas containing collections adjacent to the sigmoid colon. Findings are compatible with complicated diverticulitis with small areas of contained perforation. 2. Dilated common bile duct. Consider correlation with bilirubin levels to exclude obstruction. 3. Age-indeterminate moderate L3 superior endplate compression deformity. No microbiology studies other than a urine culture were drawn. REVIEW OF SYSTEMS: 12-point ROS completed with patient and negative unless otherwise stated in HPI or below. PHYSICAL EXAM: CONSTITUTIONAL: Conversive, good historian. A/O. Knows setting and context. Does not look acutely ill VITAL SIGNS: see record. HEENT: Normocephalic, atraumatic. PERRL, EOMI, conjunctivae pink, no scleral icterus. Ears and nose externally normal. Pharynx normal. NECK: No JVD. No carotid bruit, no thyromegaly, no adenopathy. CHEST: Clear to auscultation bilaterally HEART: S1 and S2 normal. No harsh murmurs. Edema MUSCULOSKELETAL: No gross joint deformity or swelling. ABDOMEN: Lower quadrant tenderness without rebound or evidence of a surgical abdomen. Good bowel sounds. NEURO: Cranial nerves intact. Grossly intact. No asymmetric findings. SKIN: No rashes, petechiae, concerning changes PSYCHIATRIC: Euthymic. ADMIT TO MEDSURG: FLOOR CARE DVT: Lovenox GI: PO intake Time spent: Today I spent 75 minutes seeing the patient, discussing the patient with ER staff, reviewing Expanse and EPIC notes/diagnostics, discussing the care plan with our care time that includes social work, PT/OT, pharmacy, RT, long-term and documenting my impressions and plan in the medical record. [facility] Medical History (Updated 12/29/23 @ 14:35 by Vanda Fajardo MD) HRF (hepatorenal failure) ?K76.7 - Hepatorenal syndrome (ICD-10) History of hepatitis C ?Z86.19 - Personal history of other infectious and parasitic diseases (ICD-10) Tenosynovitis of right ankle ?M65.9 - Synovitis and tenosynovitis, unspecified (ICD-10) Urinary tract infection ?N39.0 - Urinary tract infection, site not specified (ICD-10) Methicillin resistant Staphylococcus aureus culture positive ?Z22.322 - Carrier or suspected carrier of Methicillin resistant Staphylococcus aureus (ICD-10) Colon polyp ?K63.5 - Polyp of colon (ICD-10) Atrophic vaginitis ?N95.2 - Postmenopausal atrophic vaginitis (ICD-10) Diabetes mellitus due to underlying condition ?E08.9 - Diabetes mellitus due to underlying condition without complications (ICD-10) 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, uncomplicated (ICD-10) Osteoporosis ?M81.0 - Age-related osteoporosis without current pathological fracture (ICD-10) CKD (chronic kidney disease) ?N18.9 - Chronic kidney disease, unspecified (ICD-10) Surgical History (Updated 12/29/23 @ 14:35 by Vanda Fajardo MD) History of appendectomy ?Z90.49 - Acquired absence of other specified parts of digestive tract (ICD-10) Liver transplant recipient (~12/2016) ?Z94.4 - Liver transplant status (ICD-10) Kidney transplant recipient (~12/2016) ?Z94.0 - Kidney transplant status (ICD-10) Family History Mother COPD (chronic obstructive pulmonary disease) Sister Breast cancer Social History Smoking Status: Never smoker How often do you have a drink containing alcohol: never AUDIT-C Alcohol total score: 0 Non-prescribed substance use: marijuana (any form) and other Non-prescribed substance use details: edibles Little interest or pleasure in doing things: not at all Feeling down, depressed, or hopeless: not at all service: No Meds Home Medications and Allergies Home Medications Medication Instructions Recorded Confirmed Type amlodipine 5 mg tablet 5 mg PO HS 04/15/23 12/29/23 History atorvastatin 10 mg tablet 10 mg PO HS 04/15/23 12/29/23 History carvedilol 12.5 mg tablet 12.5 mg PO BID 04/15/23 12/29/23 History insulin aspart U-100 100 unit/mL 8 unit subcut TIDWM 04/15/23 12/29/23 History (3 mL) subcutaneous pen (Novolog FlexPen U-100 Insulin aspart) insulin degludec 100 unit/mL (3 20 unit subcut QAM 04/15/23 12/29/23 History mL) subcutaneous pen (Tresiba FlexTouch U-100 insulin) mycophenolate mofetil 250 mg 500 mg PO BID 04/15/23 12/29/23 History capsule prednisone 5 mg tablet 5 mg PO QAM 04/15/23 12/29/23 History tacrolimus 1 mg capsule, 1 - 2 mg PO BID 04/15/23 12/29/23 History immediate-release trazodone 50 mg tablet 50 mg PO HS PRN 04/15/23 12/29/23 History blood sugar diagnostic (Accu-Chek #10 ea 05/13/23 12/28/23 History Guide test strips) blood-glucose meter (Accu-Chek #1 ea 05/13/23 12/28/23 History Guide Me Glucose Meter) lancets (Accu-Chek Softclix #100 ea 05/13/23 12/28/23 History Lancets) pen needle, diabetic 32 gauge x #50 ea 05/13/23 12/28/23 History 1/4 (BD Ultra-Fine Micro Pen Needle) levothyroxine 75 mcg tablet 75 mcg PO DAILY 10/07/23 12/29/23 History acyclovir 400 mg tablet 400 mg PO BID PRN 12/29/23 12/29/23 History alendronate 70 mg tablet 70 mg PO QWEEK 12/29/23 12/29/23 History Allergies Allergy/AdvReac Type Severity Reaction Status Date / Time No Known Drug Allergies Allergy Verified 12/28/23 13:25 Exam Const: Vital Signs, click to edit/add: Vital Signs - 24 hr 12/28/23 15:04 12/28/23 15:45 12/28/23 16:17 Temperature 97.3 F L Pulse Rate 84 Pulse Rate [Right Pulse Oximeter] 85 Respiratory Rate 18 Blood Pressure Blood Pressure [Ri ght Upper Arm] 119/72 Pulse Oximetry 98 97 98 Oxygen Delivery Me od Room Air 12/28/23 17:00 12/28/23 18:00 12/28/23 18:40 Temperature Pulse Rate 90 84 79 Pulse Rate [Right Pulse Oximeter] Respiratory Rate Blood Pressure 116/87 Blood Pressure [Ri ght Upper Arm] Pulse Oximetry 94 98 97 Oxygen Delivery Me thod 12/28/23 18:41 12/28/23 19:19 12/28/23 19:20 Temperature Pulse Rate 79 81 Pulse Rate [Right Pulse Oximeter] 82 Respiratory Rate 18 Blood Pressure 111/63 Blood Pressure [Ri ght Upper Arm] 116/87 Pulse Oximetry 98 99 89 [facility] 12/28/23 20:31 12/28/23 20:32 12/28/23 20:45 Temperature 97.0 F L Pulse Rate 76 77 Pulse Rate [Right Pulse Oximeter] 76 Respiratory Rate 18 Blood Pressure 113/72 Blood Pressure [Ri ght Upper Arm] 113/72 Pulse Oximetry 98 96 98 Oxygen Delivery Me thod Room Air 12/28/23 21:00 12/28/23 21:29 12/28/23 21:42 Temperature Pulse Rate 77 73 Pulse Rate [Right Pulse Oximeter] 75 Respiratory Rate 18 Blood Pressure 120/62 Blood Pressure [Ri ght Upper Arm] 120/63 Pulse Oximetry 93 95 95 Oxygen Delivery Me thod Room Air 12/28/23 22:00 12/28/23 22:45 12/28/23 22:47 Temperature Pulse Rate 71 Pulse Rate [Right Pulse Oximeter] 72 Respiratory Rate 16 Blood Pressure 115/67 Blood Pressure [Ri ght Upper Arm] 115/67 Pulse Oximetry 94 98 Oxygen Delivery Me thod Room Air 12/28/23 23:00 12/28/23 23:48 12/29/23 00:00 Temperature Pulse Rate 77 72 68 Pulse Rate [Right Pulse Oximeter] Respiratory Rate Blood Pressure 127/75 Blood Pressure [Ri ght Upper Arm] Pulse Oximetry 98 97 95 Oxygen Delivery Me thod 12/29/23 00:29 12/29/23 01:00 12/29/23 02:00 Temperature 99.3 F Pulse Rate 63 Pulse Rate [Right Pulse Oximeter] 72 79 Respiratory Rate 16 16 Blood Pressure Blood Pressure [Ri ght Upper Arm] 127/75 126/62 Pulse Oximetry 97 95 98 Oxygen Delivery Me thod Room Air Room Air 12/29/23 02:00 12/29/23 02:07 12/29/23 03:00 Temperature Pulse Rate 64 79 74 Pulse Rate [Right Pulse Oximeter] Respiratory Rate Blood Pressure 126/62 Blood Pressure [Ri ght Upper Arm] Pulse Oximetry 97 97 94 Oxygen Delivery Me thod 12/29/23 04:00 12/29/23 04:01 12/29/23 04:02 Temperature Pulse Rate 68 70 Pulse Rate [Right Pulse Oximeter] 77 Respiratory Rate 16 Blood Pressure 136/73 Blood Pressure [Ri ght Upper Arm] 136/73 Pulse Oximetry 95 97 97 Oxygen Delivery Me thod Room Air 12/29/23 05:00 12/29/23 06:00 12/29/23 06:02 Temperature Pulse Rate 69 70 78 Pulse Rate [Right Pulse Oximeter] Respiratory Rate Blood Pressure 128/69 Blood Pressure [Ri ght Upper Arm] Pulse Oximetry 95 93 97 Oxygen Delivery Me thod 12/29/23 06:39 12/29/23 07:00 12/29/23 07:11 Temperature 98.2 F Pulse Rate 65 Pulse Rate [Right Pulse Oximeter] 70 76 Respiratory Rate 18 20 Blood Pressure Blood Pressure [Ri ght Upper Arm] 128/69 Pulse Oximetry 94 97 97 Oxygen Delivery Me od Room Air 12/29/23 08:00 12/29/23 08:02 12/29/23 08:03 Temperature Pulse Rate 63 65 64 Pulse Rate [Right Pulse Oximeter] Respiratory Rate Blood Pressure 138/79 Blood Pressure [Ri ght Upper Arm] Pulse Oximetry 96 96 95 Oxygen Delivery Me thod 12/29/23 09:28 Temperature Pulse Rate 80 Pulse Rate [Right Pulse Oximeter] Respiratory Rate 16 Blood Pressure Blood Pressure [Ri ght Upper Arm] Pulse Oximetry 94 [facility] - H&P: Result Labs Labs: Short CBC 12/29/23 Range/Units 07:38 WBC 5.61 (4.50-11.00) K/uL Hgb 11.1 L (12.0-16.0) gm/dL Hct 35.4 (33.0-51.0) % Plt Count 197 (140-440) K/uL BMP 12/28/23 12/29/23 15:58 09:41 Sodium 138 139 Potassium 4.6 3.9 Chloride 107 114 Carbon Dioxide 20 18 L BUN 26 22 Creatinine 1.9 H 1.5 Glucose 146 H 87 Calcium 9.8 9.0 Liver Function 12/28/23 Range/Units 15:58 Total Bilirubin 0.3 (0.1-1.5) mg/dL AST 17 (12-35) U/L ALT 11 (4-35) U/L Alkaline Phosphatase 72 (40-150) U/L Albumin 4.2 (3.3-5.0) g/dL Assessment and Plan Assessment and plan (1) Perforation of sigmoid colon due to diverticulitis: Problem comment: -continue Zosyn, renally dose if needed -discussed with our general surgery team and her transplant team -if she were to need surgery she would need to go up to the U -transplant team recommended extending antibiotic as her infection will be slower to resolve given her immunosuppressant -they are available for phone consult p.r.n. Status: Acute (2) Liver transplant recipient: Problem comment: donor kidney transplant, simultaneous liver kidney transplant [facility] ([facility]) - [place]2016 etiology: HEP C LIVER FAILURE & HEPATORENAL SYNDROME Status: Acute (3) Kidney transplant recipient: Problem comment: donor kidney transplant, simultaneous liver kidney transplant [facility] ([facility]) - [place]2016 etiology: HEP C LIVER FAILURE & HEPATORENAL SYNDROME Status: Acute (4) Anemia of chronic disease: Problem comment: History hepatic renal, renal transplant, medically induced type 1 diabetes Status: Acute (5) CKD (chronic kidney disease): Problem comment: Baseline creatinine 1.1-1.2, no proteinuria. Status: Acute (6) Diabetes mellitus due to underlying condition: Problem comment: -monitor glucose and sliding scale with home regimen if she is tolerating a diet Status: Acute (7) Steroid dependent: Problem comment: Daily 5 mg prednisone as part of her immunosuppression posttransplant Status: Acute (8) History of hepatitis C: Problem comment: As etiology of liver failure and had a renal syndrome leading to simultaneous liver kidney transplant Status: Acute (9) Osteoporosis: Problem comment: Fosamax weekly Status: Acute (10) Hypothyroidism: Problem comment: Levothyroxine replacement Status: Acute (11) Methicillin resistant Staphylococcus aureus culture positive: Status: Acute
[2023-12-29] MEDS: 0.9 % SODIUM CH + KCL 20 mEq/L 1,000 ML 100 ML IV (15:20)
[2023-12-29] MEDS: PANTOPRAZOLE SODIUM 40 MG INJ IVP (15:22)
[2023-12-29] MEDS: INSULIN ASPART 100 UNIT/ML 8 UNIT SUBCUT (18:15)
[2023-12-29] MEDS: OXYCODONE 5 MG TABLET PO (19:35)
[2023-12-29] MEDS: carvediloL 6.25 MG TABLET 12.5 MG PO (21:24)
[2023-12-29] MEDS: TACROLIMUS 0.5 MG CAPSULE 1 MG PO (21:25)
[2023-12-29] MEDS: mycophenolate mofetiL 250 MG CAPSULE 500 MG PO (21:26)
[2023-12-29] MEDS: AMLODIPINE 5 MG TABLET PO (21:27)
[2023-12-29] MEDS: SODIUM CHLORIDE 0.9 % (FLUSH) 10 ML SYRINGE 5 ML IVF (21:29)
--- NOTE | 2023-12-29 22:41 | PC.NURSE ---
Shift note: The pt has been pleasant and cooperative. Denied chest pain and short of breath; Spo2 has been in the RA. The pt was c/o of moderate Abdominal pain; PRN oxycodone was given with a good relief. The pt was on clear liquid diet then changed to NPO. Denied nausea or vomiting. The pt had x1 small loose stool; no blood in the stool per patient. Tolerating IV abx. The pt has been resting without any acute distress
[2023-12-29] MEDS: ZOLPIDEM 5 MG TABLET PO (23:26)
[2023-12-30] VITALS (7 sets, daily range): BP systolic 107–143; BP diastolic 60–75; PULSE 74–91; RESP 16–18; TEMP 36.5–37.3; O2SAT 94–98
[2023-12-30] MEDS: 0.9 % SODIUM CH + KCL 20 mEq/L 1,000 ML 100 ML IV (02:55)
[2023-12-30] MEDS: PIPERACILLIN/TAZOBACTAM 2.25 GM in 0.9 % SODIUM CHLORIDE Mini-bag 100 ML IVPB ×4 (02:56→20:53)
--- NOTE | 2023-12-30 06:34 | PC.NURSE ---
Shift note: No c/o pain during this shift, 2-3/10 and discomfort which pt stated is tolerable. Pt is afebrile, no BMs overnight, voiding, up independently, no c/o nausea.
[2023-12-30 07:16] LABS: HCO3 VBG 21 mmol/L (21-28); Lactate* 0.6 mmol/L (0.5-1.9); PCO2 VBG 33 mmHG (40-50); PO2 VBG 50.2 mmHG (25-47); pH VBG 7.416 (7.32-7.43)
[2023-12-30 07:20] LABS: Basophils Percent Auto 1.9 % (0.0-3.0); Eosinophils Percent Auto 2.2 % (0.0-7.0); Hematocrit 35.3 % (33.0-51.0); Hemoglobin* 11.3 gm/dL (12.0-16.0); Mean Corpuscular HGB Conc 32 gm/dL (32-36); Mean Corpuscular Hemoglobin 26 pg (26-34); Mean Corpuscular Volume 81 fL (80-100); Neutrophils Percent Auto 62.9 % (42.0-72.0); Platelet Count* 213 K/uL (140-440); RDW Coefficient of Variation % 13.4 % (11.5-15.5); Red Blood Count 4.37 m/uL (4.00-5.20); White Blood Count* 4.15 K/uL (4.50-11.00)
[2023-12-30 07:22] LABS: Slide Review Reflex No
[2023-12-30 07:36] LABS: Albumin* 3.6 g/dL (3.3-5.0); Chloride* 113 mmol/L (96-114); Sodium* 140 mmol/L (135-149)
[2023-12-30 07:37] LABS: Potassium* 4.3 mmol/L (3.6-5.1)
[2023-12-30 07:38] LABS: Creatinine* 1.1 mg/dL (0.5-1.5); Estimated Glomerular Filt Rate 54 ml/min
[2023-12-30 07:39] LABS: Alanine Aminotransferase* 8 U/L (4-35); Alkaline Phosphatase* 61 U/L (40-150); Anion Gap 7 mEq/L (7-15); Aspartate Amino Transferase* 17 U/L (12-35); Bilirubin Direct* 0.2 mg/dL (0.0-0.5); Bilirubin Total* 0.4 mg/dL (0.1-1.5); Blood Urea Nitrogen* 12 mg/dL (7-30); Carbon Dioxide* 20 mmol/L (20-32); Glucose* 85 mg/dL (60-115); Lipase* 83 U/L (23-300); Total Protein* 6.4 g/dL (6.0-8.3)
[2023-12-30 07:40] LABS: Calcium* 9.1 mg/dL (8.4-10.6); Phosphorus* 3.6 mg/dL (2.5-4.5)
[2023-12-30 07:42] LABS: C Reactive Protein* 2.4 mg/dL (0.5-1.0)
[2023-12-30] MEDS: LEVOTHYROXINE 75 MCG TABLET PO (08:20)
[2023-12-30] MEDS: predniSONE 5 MG TABLET PO (09:17)
[2023-12-30] MEDS: carvediloL 6.25 MG TABLET 12.5 MG PO ×2 (09:17→20:51)
[2023-12-30] MEDS: TACROLIMUS 0.5 MG CAPSULE 2 MG PO (09:17)
[2023-12-30] MEDS: mycophenolate mofetiL 250 MG CAPSULE 500 MG PO ×2 (09:36→20:53)
[2023-12-30] MEDS: OXYCODONE 5 MG TABLET PO ×2 (09:39→21:45)
--- NOTE | 2023-12-30 09:58 | PC.NURSE ---
0950. Meds given per order, oxycodone given for c/o intermittent crampy lower abdominal pain. Pt rating pain 3-5/10. Blood sugar rechecked, was 84 on metabolic panel this am. Blood sugar 77, Dr. Fajardo notified and pt given 50cc orange juice. Discussed with pt plan to ambulate in hallway after oxycodone has had time to become effective. Will recheck blood sugar at 1100.
[2023-12-30] MEDS: 5 % DEXTROSE IN LAC RINGER'S 1,000 ML 125 ML IV ×2 (11:26→19:34)
--- NOTE | 2023-12-30 12:07 | PM.GSPN ---
Subjective Subjective Date Seen: 12/30/23 Interval history: Catarina's abdominal pain is stable to better, however she does state that she has had more crampy pain. This is associated with diarrhea. She has had this diarrhea for several days. The cramping seems to be worse however. No fevers. No nausea. She felt fine overnight and was taking oxycodone for pain. Exam Narrative: Exam Narrative: General: No acute distress CV: Regular rate Respiratory: Breathing nonlabored Abdomen: Soft. She is tender in most of the lower abdomen. She does not have peritonitis or rebound but does have some mild guarding in the lower abdomen. Const: Vital Signs, click to edit/add: Vital Signs - 24 hr 12/29/23 13:00 12/29/23 14:00 12/29/23 14:01 Temperature Pulse Rate 67 85 89 Pulse Rate [Right Radial] Respiratory Rate Blood Pressure 144/92 H Blood Pressure [Ri ght Arm] Pulse Oximetry 95 96 96 Oxygen Delivery Me thod 12/29/23 14:48 12/29/23 14:54 12/29/23 15:56 Temperature 97.3 F L Pulse Rate Pulse Rate [Right Radial] 77 Respiratory Rate 20 Blood Pressure Blood Pressure [Ri ght Arm] 128/83 Pulse Oximetry 97 97 Oxygen Delivery Me thod Room Air Room Air Room Air 12/29/23 16:00 12/29/23 16:00 12/29/23 19:50 Temperature 97.8 F Pulse Rate Pulse Rate [Right Radial] 77 78 Respiratory Rate 20 20 Blood Pressure Blood Pressure [Ri ght Arm] 152/70 H Pulse Oximetry 97 97 Oxygen Delivery Me thod Room Air 12/29/23 23:00 12/29/23 23:00 12/29/23 23:00 Temperature 98.5 F Pulse Rate Pulse Rate [Right Radial] 90 90 Respiratory Rate 18 18 Blood Pressure Blood Pressure [Ri ght Arm] 136/77 Pulse Oximetry 96 96 Oxygen Delivery Me thod Room Air 12/30/23 03:00 12/30/23 08:14 12/30/23 11:27 Temperature 98.5 F 97.7 F 98.3 F Pulse Rate Pulse Rate [Right Radial] 86 84 91 Respiratory Rate 18 16 18 Blood Pressure Blood Pressure [Ri ght Arm] 126/60 133/66 107/75 Pulse Oximetry 98 98 94 Oxygen Delivery Me thod Room Air Room Air Room Air Labs/Imaging Labs Labs: Labs reviewed, white blood cell count is 4.5. CRP is 2.4 Progress Note:A&P Assessment and plan (1) Immunosuppression due to drug therapy: Status: Acute (2) Perforation of sigmoid colon due to diverticulitis: Status: Acute (3) Liver transplant recipient: Status: Acute (4) Kidney transplant recipient: Status: Acute (5) Anemia of chronic disease: Status: Acute (6) CKD (chronic kidney disease): Status: Acute (7) Diabetes mellitus due to underlying condition: Status: Acute (8) Steroid dependent: Status: Acute (9) History of hepatitis C: Status: Acute Plan The patient is a 73-year-old female liver and kidney transplant recipient on immunosuppression, also with insulin-dependent diabetes, with perforated diverticulitis. She appears to be stable, however she continues to have crampy abdominal pain and diarrhea. -recommend continued broad antibiotics will likely need outpatient course. Discharge will pend on clinical course and she will likely require prolonged outpatient antibiotics -check stool for C diff and culture. May be related to antibiotics, however she also had diarrhea prior to this. Could be related to immunosuppression. CMV colitis can be seen in transplant patients however unclear if this may present acutely and in the setting of diverticulitis. May be reasonable to discuss with Infectious Disease. -I do continue to feel that she would be best managed at a transplant center, however secondary to bed availability this is not possible. In the meantime we will continue antibiotics, NPO status until her pain has resolved, fluid replacement for diarrhea and then further workup. Per the hospitalist the transplant team has been available if there are questions by phone. -if she seems to be worsening more acutely then recommend repeat CT scan. This could be done without contrast.
--- NOTE | 2023-12-30 13:10 | PM.IMPN1 ---
Progress Note: A&P Assessment and plan (1) Perforation of sigmoid colon due to diverticulitis: Problem details: -continue Zosyn, renally dose if needed -discussed with our general surgery team and her transplant team -if she were to need surgery she would need to go up to the U -transplant team recommended extending antibiotic as her infection will be slower to resolve given her immunosuppressant -they are available for phone consult p.r.n. Status: Acute (2) Liver transplant recipient: Problem details: donor kidney transplant, simultaneous liver kidney transplant [facility] ([facility]) - [place]2016 etiology: HEP C LIVER FAILURE & HEPATORENAL SYNDROME Status: Acute (3) Kidney transplant recipient: Problem details: donor kidney transplant, simultaneous liver kidney transplant [facility] ([facility]) - [place]2016 etiology: HEP C LIVER FAILURE & HEPATORENAL SYNDROME Status: Acute (4) Anemia of chronic disease: Problem details: History hepatic renal, renal transplant, medically induced type 1 diabetes Status: Acute (5) Immunosuppression due to drug therapy: Status: Acute (6) CKD (chronic kidney disease): Problem details: Baseline creatinine 1.1-1.2, no proteinuria. 1.9 --> 1.1 - creatinine has returned to normal Status: Acute (7) Diabetes mellitus due to underlying condition: Problem details: -monitor glucose and sliding scale with home regimen if she is tolerating a diet -patient's blood glucose level has been 77-102. She is NPO. I did start D5 LR and she did have a little juice 1 her sugar was 77. Adjusting and holding insulin as appropriate. Status: Acute (8) Steroid dependent: Problem details: Daily 5 mg prednisone as part of her immunosuppression posttransplant Status: Acute (9) History of hepatitis C: Problem details: As etiology of liver failure and had a renal syndrome leading to simultaneous liver kidney transplant Status: Acute Subjective Date Seen: 12/30/23 Interval history: Daily Progress Note - Hospital Medicine Day #: 2 (3 from arrival in the ED) CC: Complicated perforated diverticulitis OVERNIGHT UPDATES FROM STAFF & MED, LAB, IMAGING UPDATES Feels about the same probably continuing to improve. Initially this morning she had a 3/10 abdominal pain. Which she said this all started it was 10/10. As her morning wore on she started to feel more distension and gas pain. One small diarrheal stool. No new fever. T-max 98.5 CBC is stable. No leukocytosis. No acute anemia. Platelets are normal. PH is 7.416 Electrolytes are all normal, lipase is normal. TSH is normal. CRP down trended from 6.2 down to 2.4 Objective: Resting comfortably Vitals: see above Lungs: Clear. Cardiac: S1S2. Abdomen: Mildly distended. Mildly tender. No evidence of peritonitis. Disposition/Potential discharge - Likely to return to previous living situation. Today I spent 50minutes seeing the patient, reviewing Expanse and EPIC notes/diagnostics, discussing the care plan with our care time that includes social work, PT/OT, pharmacy, RT, penitentiary and documenting my impressions and plan in the medical record. Exam Const: Vital Signs, click to edit/add: Vital Signs - 24 hr 12/29/23 14:00 12/29/23 14:01 12/29/23 14:48 Temperature Pulse Rate 85 89 Pulse Rate [Right Radial] Respiratory Rate Blood Pressure 144/92 H Blood Pressure [Ri ght Arm] Pulse Oximetry 96 96 97 Oxygen Delivery Me thod Room Air 12/29/23 14:54 12/29/23 15:56 12/29/23 16:00 Temperature 97.3 F L Pulse Rate Pulse Rate [Right Radial] 77 Respiratory Rate 20 Blood Pressure Blood Pressure [Ri ght Arm] 128/83 Pulse Oximetry 97 97 Oxygen Delivery Me thod Room Air Room Air 12/29/23 16:00 12/29/23 19:50 12/29/23 23:00 Temperature 97.8 F Pulse Rate Pulse Rate [Right Radial] 77 78 Respiratory Rate 20 20 Blood Pressure Blood Pressure [Ri ght Arm] 152/70 H Pulse Oximetry 97 96 Oxygen Delivery Me thod Room Air 12/29/23 23:00 12/29/23 23:00 12/30/23 03:00 Temperature 98.5 F 98.5 F Pulse Rate Pulse Rate [Right Radial] 90 90 86 Respiratory Rate 18 18 18 Blood Pressure Blood Pressure [Ri ght Arm] 136/77 126/60 Pulse Oximetry 96 98 Oxygen Delivery Me thod Room Air Room Air 12/30/23 07:00 12/30/23 08:14 12/30/23 11:27 Temperature 97.7 F 98.3 F Pulse Rate Pulse Rate [Right Radial] 84 91 Respiratory Rate 16 18 Blood Pressure Blood Pressure [Ri ght Arm] 133/66 107/75 Pulse Oximetry 96 98 94 Oxygen Delivery Me thod Room Air Room Air Labs Labs: Laboratory Results - last 24 hr 12/30/23 07:08 WBC 4.15 L RBC 4.37 Hgb 11.3 L Hct 35.3 MCV 81 MCH 26 MCHC 32 RDW Coeff of [place] 13.4 Plt Count 213 Neut % (Auto) 62.9 Lymph % (Auto) 20.0 [place] % (Auto) 12.0 H Eos % (Auto) 2.2 Baso % (Auto) 1.9 Neut # (Auto) 2.60 Lymph # (Auto) 0.80 L [place] # (Auto) 0.50 Eos # (Auto) 0.10 Baso # (Auto) 0.10 Abs Immat Gran (auto) 0.00 Imm/Tot Granulo (auto) 1.0 VBG pH 7.416 VBG pCO2 33 L VBG pO2 50.2 H VBG HCO3 21 Sodium 140 Potassium 4.3 Chloride 113 Carbon Dioxide 20 Anion Gap 7 BUN 12 Creatinine 1.1 Estimated Creat Clear 38.80 Estimated GFR 54 Glucose 85 Lactate 0.6 Calcium 9.1 Phosphorus 3.6 Total Bilirubin 0.4 Direct Bilirubin 0.2 AST 17 ALT 8 Alkaline Phosphatase 61 C-Reactive Protein 2.4 H Total Protein 6.4 Albumin 3.6 Lipase 83 TSH 3.000
--- NOTE | 2023-12-30 15:34 | PC.NURSE ---
shift note: vss stable. pt on RA. pt rating abd cramping 3-05/14. Pt medicated x1 with prn oxycodone. BS hypo x4. abd slightly distended. pt states increased cramping with 2 moderate loose watery stools late morning. pt up ambulating in soler indept. IV patent x2. Blood sugar this a.m 85 then rechecked 1 hr later was 77. insulins short and long acting held per Dr. Fajardo. Recheck this afternoon with IVF changed II=665 afternoon. short acting insulin held. Rechecked BS @1430 was 155.
[2023-12-30] MEDS: TACROLIMUS 0.5 MG CAPSULE 1 MG PO (20:52)
[2023-12-30] MEDS: AMLODIPINE 5 MG TABLET PO (20:52)
[2023-12-30 22:35] LABS: CDIFFEPI 027 PRESUMPTIVE NEGATIVE (Negative)
--- NOTE | 2023-12-30 22:46 | PC.NURSE ---
End of shift [id number]: Pt is A&O x4, ambulatory & VSS. Low-grade fever x1 this afternoon, T-max 99.1 and resolved on it?s own. Pt is independent in her room & halls. X2 PIV?s went bad this afternoon so now pt has x1 PIV in left AC infusing 5% Dex in LR @ 125 mL/hr. Pt is NPO with minimal ice chips. BS active/hypoactive in all 4 quads. Pt reports abd tenderness shifted from lower abd to mid abd- states it?s a cramping pain & tender to the touch. Rates pain between 4-6/10 with PRN oxycodone last given @ 214. Pt had x1 small loose BM this evening. C Diff pending. Blood sugars 150 @ 1700 and 123 @ 2100; no insulin given today.
[2023-12-30 23:18] LABS: C.Difficile POSITIVE (Negative)
[2023-12-31] MEDS: VANCOMYCIN 125 MG CAPSULE PO ×5 (00:12→21:07)
[2023-12-31] MEDS: ZOLPIDEM 5 MG TABLET PO ×2 (02:03→22:39)
[2023-12-31] MEDS: 5 % DEXTROSE IN LAC RINGER'S 1,000 ML 125 ML IV ×3 (02:04→21:56)
[2023-12-31 03:00] VITALS: BP 151/79; PULSE 89; RESP 20; TEMP 36.9; O2SAT 98
[2023-12-31] MEDS: PIPERACILLIN/TAZOBACTAM 2.25 GM in 0.9 % SODIUM CHLORIDE Mini-bag 100 ML IVPB ×2 (03:15→09:42)
[2023-12-31 06:24] LABS: HCO3 VBG 24 mmol/L (21-28); PCO2 VBG 35 mmHG (40-50); pH VBG 7.447 (7.32-7.43)
[2023-12-31 06:30] LABS: Basophils Percent Auto 1.6 % (0.0-3.0); Eosinophils Percent Auto 1.9 % (0.0-7.0); Hematocrit 37.3 % (33.0-51.0); Immature Granulocytes Pct Auto 0.9 %; Mean Corpuscular HGB Conc 32 gm/dL (32-36); Mean Corpuscular Hemoglobin 26 pg (26-34); Mean Corpuscular Volume 79 fL (80-100); Monocytes Percent Auto 11.6 % (0.0-11.0); Platelet Count* 236 K/uL (140-440); RDW Coefficient of Variation % 13.2 % (11.5-15.5); Red Blood Count 4.71 m/uL (4.00-5.20); White Blood Count* 4.31 K/uL (4.50-11.00)
[2023-12-31 06:41] LABS: Slide Review Reflex No
[2023-12-31 06:49] LABS: Chloride* 108 mmol/L (96-114)
--- NOTE | 2023-12-31 06:49 | PC.NURSE ---
Shift note: pt states that pain is tolerable, a little achy and crampy, did not request PRN pain medications during this shift. She is afebrile, no BM overnight.
[2023-12-31 06:50] LABS: Albumin* 3.9 g/dL (3.3-5.0); Sodium* 140 mmol/L (135-149)
[2023-12-31 06:51] LABS: Potassium* 3.6 mmol/L (3.6-5.1)
[2023-12-31 06:52] LABS: Est. Creatinine Clearance* 42.68; Estimated Glomerular Filt Rate 60 ml/min
[2023-12-31 06:53] LABS: Alanine Aminotransferase* 10 U/L (4-35); Alkaline Phosphatase* 58 U/L (40-150); Anion Gap 8 mEq/L (7-15); Aspartate Amino Transferase* 17 U/L (12-35); Bilirubin Direct* 0.2 mg/dL (0.0-0.5); Bilirubin Total* 0.4 mg/dL (0.1-1.5); Blood Urea Nitrogen* 6 mg/dL (7-30); Carbon Dioxide* 24 mmol/L (20-32); Glucose* 124 mg/dL (60-115); Phosphorus* 3.5 mg/dL (2.5-4.5); Total Protein* 6.8 g/dL (6.0-8.3)
[2023-12-31 06:54] LABS: Calcium* 9.6 mg/dL (8.4-10.6)
[2023-12-31 06:56] LABS: C Reactive Protein* 1.2 mg/dL (0.5-1.0)
--- NOTE | 2023-12-31 07:54 | P.IMPN_ITS ---
Progress Note: A&P Assessment and plan (1) Perforation of sigmoid colon due to diverticulitis: Problem details: -continue Zosyn, renally dose if needed (if GFR >40 I bump to 3.375mg) -discussed with our general surgery team, transplant team ([facility] [phone] DR. FARMER), and ID. -IV flagyl added to the PO Vanc -continue IV Zosyn -update imaging -consider transfer pending CT results; clinical course -ID recommended Fidaxomicin. Holding secondary to cost, availability and transplant team ok with PO VANC. adding IV flagyl which all were in agreement. -ID recommended oral augmentin at discharge for at least two weeks, likely would need f/u imaging and colorectal consultation. 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 1.9 --> 1.1--> 1.0 - creatinine has returned to normal Status: Acute (7) Diabetes mellitus due to underlying condition: Problem details: -monitor glucose and sliding scale with home regimen if she is tolerating a diet -patient's blood glucose level has been 77-102. She is NPO. I did start D5 LR and she did have a little juice 1 her sugar was 77. Adjusting and holding insulin as appropriate. Status: Acute (8) Steroid dependent: Problem details: Daily 5 mg prednisone as part of her immunosuppression posttransplant Status: Acute (9) History of hepatitis C: Problem details: As etiology of liver failure and had a renal syndrome leading to simultaneous liver kidney transplant Status: Acute Subjective Date Seen: 12/31/23 Interval history: Daily Progress Note - Hospital Medicine Day #: 3 (4 from arrival in the ED) CC: Complicated perforated diverticulitis, POS CDIFF OVERNIGHT UPDATES FROM STAFF & MED, LAB, IMAGING UPDATES feels crampy. but overall improved. no fever. hungry. passing loose stool; small mucus - amount is not much CBC is stable. No elevation in her white blood cell count. Hemoglobin is stabl e. Her platelets are stable. PH is stable. No CO2 retention. Electrolytes are normal. Her creatinine is normal. LFTs are normal. Her CRP continues to downtrend. Incontinent stools, tested positive for C diff. Patient is diabetic but currently NPO 123, 150, 102 Objective: Resting comfortably Vitals: see above Lungs: Clear. Cardiac: S1S2. Abdomen: Mildly distended. Mildly tender. No evidence of peritonitis. Disposition/Potential discharge - Likely to return to previous living situation. Today I spent 50minutes seeing the patient, reviewing Expanse and EPIC notes/diagnostics, discussing the care plan with our care time that includes social work, PT/OT, pharmacy, RT, alf and documenting my impressions and plan in the medical record. Exam Const: Vital Signs, click to edit/add: Vital Signs - 24 hr 12/30/23 08:14 12/30/23 11:27 12/30/23 15:00 Temperature 97.7 F 98.3 F Pulse Rate [Pulse Oximeter] Pulse Rate [Right Radial] 84 91 Respiratory Rate 16 18 Blood Pressure [Le ft Arm] Blood Pressure [Ri ght Arm] 133/66 107/75 Pulse Oximetry 98 94 97 Oxygen Delivery Me thod Room Air Room Air 12/30/23 15:00 12/30/23 15:00 12/30/23 19:00 Temperature 98.7 F 99.1 F Pulse Rate [Pulse Oximeter] 78 Pulse Rate [Right Radial] 85 77 Respiratory Rate 16 16 16 Blood Pressure [Le ft Arm] 143/75 H Blood Pressure [Ri ght Arm] 138/74 Pulse Oximetry 97 97 Oxygen Delivery Me thod Room Air Room Air 12/30/23 23:00 12/31/23 03:00 Temperature 98.5 F Pulse Rate [Pulse Oximeter] 74 89 Pulse Rate [Right Radial] Respiratory Rate 16 20 Blood Pressure [Le ft Arm] Blood Pressure [Ri ght Arm] 151/79 H Pulse Oximetry 96 98 Oxygen Delivery Me thod Room Air Room Air Labs Labs: Laboratory Results - last 24 hr 12/30/23 12/30/23 12/31/23 07:08 20:39 06:16 WBC 4.31 L RBC 4.71 Hgb 12.0 Hct 37.3 MCV 79 L MCH 26 MCHC 32 RDW Coeff of Amelia 13.2 Plt Count 236 Neut % (Auto) 62.0 Lymph % (Auto) 22.0 [place] % (Auto) 11.6 H Eos % (Auto) 1.9 Baso % (Auto) 1.6 Neut # (Auto) 2.70 Lymph # (Auto) 0.90 [place] # (Auto) 0.50 Eos # (Auto) 0.10 Baso # (Auto) 0.10 Abs Immat Gran (auto) 0.00 Imm/Tot Granulo (auto) 0.9 VBG pH 7.447 H VBG pCO2 35 L VBG pO2 65.0 H VBG HCO3 24 Sodium 140 Potassium 3.6 Chloride 108 Carbon Dioxide 24 Anion Gap 8 BUN 6 L Creatinine 1.0 Estimated Creat Clear 42.68 Estimated GFR 60 Glucose 124 H Calcium 9.6 Phosphorus 3.5 Total Bilirubin 0.4 Direct Bilirubin 0.2 AST 17 ALT 10 Alkaline Phosphatase 58 C-Reactive Protein 1.2 H Total Protein 6.8 Albumin 3.9 TSH 3.000 Stl C. diff Tox B Gene POSITIVE A* Stl C. diff [id number] PRESUMPTIVE NEGATIVE
[2023-12-31 09:33] VITALS: BP 143/79; PULSE 84; RESP 18; TEMP 36.9; O2SAT 98
[2023-12-31] MEDS: LEVOTHYROXINE 75 MCG TABLET PO (09:41)
[2023-12-31] MEDS: carvediloL 6.25 MG TABLET 12.5 MG PO ×2 (09:41→21:07)
[2023-12-31] MEDS: mycophenolate mofetiL 250 MG CAPSULE 500 MG PO ×2 (09:42→21:08)
[2023-12-31] MEDS: predniSONE 5 MG TABLET PO (09:43)
[2023-12-31] MEDS: TACROLIMUS 0.5 MG CAPSULE 2 MG PO (09:49)
--- NOTE | 2023-12-31 10:18 | CT_ITS ---
Patient: PRAVEEN BRITTON Facility:?[facility] RIS Patient ID:?[id number] Site Patient ID:?[id number]. Site :?[id number] Study:?CT-Abdomen/Pelvis W/ 65CC ISOVUE 370-12/31/2023 10:49:46 AM Ordering Physician:Geovanna Fajardo Final Report: INDICATION: Clostridium difficile. Perforated diverticulitis. History of liver and renal transplant. COMPARISON: December 27, 2023 TECHNIQUE: CT examination of the abdomen and pelvis was performed following the uneventful intravenous administration of 65 cc of Isovue 370. Thin section axial images were obtained from the lung bases through the pubic symphysis. Oral contrast was not administered. Please note that all CT scans at this facility use dose modulation, iterative reconstruction, and/or weight-based dosing when appropriate to reduce radiation dose to as low as reasonably achievable. FINDINGS: LUNG BASES: The lung bases as visualized appear normal.The heart size is normal at the lung bases. LIVER/BILIARY SYSTEM:Normal-sized liver. A few cysts are noted. Mild intrahepatic ductal dilation and moderate extrahepatic biliary ductal dilation similar to the prior study.No visible distal choledocholithiasis or periampullary mass. ADRENALS: Normal KIDNEYS, URETERS and BLADDER:The [place] kidneys show no mass and are mildly atrophic. No obstructive uropathy regarding the [place] kidneys. Transplant kidney in the right lower quadrant without associated hydronephrosis, mass or perinephric collection. SPLEEN:Normal appearance. PANCREAS: Appears normal. RETROPERITONEUM and MESENTERY: There is no mass, adenopathy or aortic aneurysm. Atherosclerotic vascular calcification GASTROINTESTINAL SYSTEM: There are no global overall findings of Clostridium difficile colitis on this exam. No diffuse or localized wall thickening except at the sigmoid. There is diverticulosis. There are findings again noted acute sigmoid diverticulitis. This presents primarily as inflammatory change near the sigmoid and in the sigmoid mesocolon with a small amount of gas in the sigmoid mesocolon. The overall appearance is similar to slightly improved. There is a small fluid collection in this area that is not walled-off measuring about 1.4 x 1.6 centimeters from axial image 97 and coronal image 61. This fluid was present previously PELVIS: No adenopathy or mass. OSSEOUS STRUCTURES and ABDOMINAL WALL: There is an age-appropriate appearance of the osseous structures.No significant abdominal wall defect. OTHER: No free fluid or free air. IMPRESSION: 1. There is no overall colonic finding to suggest Clostridium difficile colitis. No diffuse wall thickening. The only focal thickening is seen in the region of the sigmoid diverticulitis. 2. Redemonstration of findings of acute sigmoid diverticulitis. Features include inflammatory change near the sigmoid, a small amount of air in the sigmoid mesocolon, and a small amount of fluid. The air component is slightly smaller. The inflammatory change is similar to slightly improved. A small fluid collection without an apparent Lara noted measuring 1.4 x 1.6 centimeters essentially unchanged Please note that all CT scans at this facility use dose modulation, iterative reconstruction, and/or weight-based dosing when appropriate to reduce radiation dose to as low as reasonably achievable. Dictated by Suraj Kwan MD @ 12/31/2023 11:10:14 AM Signed by:?Suraj Kwan MD @12/31/2023 11:10:14 AM (Electronic Signature)
--- NOTE | 2023-12-31 10:20 | PC.SOCIAL ---
Discharge planning: sill worker received a message from Kylee Pitts stating that the pt has a Patient Home Monitoring Police Crime Scene Technician name Hang Saldana #[phone] whom can assist with discharge planning, if needed. Social work to follow-up as needed.
[2023-12-31 11:00] VITALS: BP 138/88; PULSE 84; RESP 16; TEMP 37.2; O2SAT 98
--- NOTE | 2023-12-31 11:00 | P.GSPN_ITS ---
Subjective Subjective Date Seen: 12/31/23 Interval history: Catarina has been feeling better. Diarrhea has decreased. She did test positive for C diff. Repeat CT scan was obtained because of this. This did not show worsening of sigmoidal inflammation, extra luminal air or colitis. Exam Narrative: Exam Narrative: general: No acute distress CV: Regular rate abdomen: Soft. Remains only mildly tender in the lower abdomen without guarding or rebound. Const: Vital Signs, click to edit/add: Vital Signs - 24 hr 12/30/23 11:27 12/30/23 15:00 12/30/23 15:00 Temperature 98.3 F 98.7 F Pulse Rate [Pulse Oximeter] Pulse Rate [Right Radial] 91 85 Respiratory Rate 18 16 Blood Pressure [Le ft Arm] 143/75 H Blood Pressure [Ri ght Arm] 107/75 Blood Pressure [ri ght forearm] Pulse Oximetry 94 97 97 Oxygen Delivery Me thod Room Air Room Air 12/30/23 15:00 12/30/23 19:00 12/30/23 23:00 Temperature 99.1 F Pulse Rate [Pulse Oximeter] 78 74 Pulse Rate [Right Radial] 77 Respiratory Rate 16 16 16 Blood Pressure [Le ft Arm] Blood Pressure [Ri ght Arm] 138/74 Blood Pressure [ri ght forearm] Pulse Oximetry 97 96 Oxygen Delivery Me thod Room Air Room Air 12/31/23 03:00 12/31/23 09:33 12/31/23 09:33 Temperature 98.5 F 98.5 F Pulse Rate [Pulse Oximeter] 89 84 84 Pulse Rate [Right Radial] Respiratory Rate 20 18 18 Blood Pressure [Le ft Arm] Blood Pressure [Ri ght Arm] 151/79 H Blood Pressure [ri ght forearm] 143/79 H Pulse Oximetry 98 98 Oxygen Delivery Me thod Room Air Room Air Labs/Imaging Labs Labs: White blood cell count is 4.3 CRP continues to trend down to 1.2. Imaging Imaging: Repeat CT scan done today shows: IMPRESSION: 1. There is no overall colonic finding to suggest Clostridium difficile colitis. No diffuse wall thickening. The only focal thickening is seen in the region of the sigmoid diverticulitis. 2. Redemonstration of findings of acute sigmoid diverticulitis. Features include inflammatory change near the sigmoid, a small amount of air in the sigmoid mesocolon, and a small amount of fluid. The air component is slightly smaller. The inflammatory change is similar to slightly improved. A small fluid collection without an apparent Lara noted measuring 1.4 x 1.6 centimeters essentially unchanged Progress Note:A&P Assessment and plan (1) Immunosuppression due to drug therapy: Status: Acute (2) Perforation of sigmoid colon due to diverticulitis: Status: Acute (3) Liver transplant recipient: Status: Acute (4) Kidney transplant recipient: Status: Acute (5) Anemia of chronic disease: Status: Acute (6) CKD (chronic kidney disease): Status: Acute (7) Diabetes mellitus due to underlying condition: Status: Acute (8) Steroid dependent: Status: Acute (9) History of hepatitis C: Status: Acute (10) C. difficile colitis: Status: Acute Plan The patient is a 73-year-old female with a complex medical history including kidney liver transplant, on chronic immunosuppression, diabetes, now with perforated diverticulitis and C diff colitis. - she since patient has pain in clinic the picture has improved I think it is okay to advance her diet to liquids. - Agree with hospital is plan and recommendation to transfer to tertiary facility. Awaiting beds at the [facility] Who has accepted the patient - agree with ID consultation on antibiotic management.
[2023-12-31] MEDS: metroNIDAZOLE 500 MG/100 ML PIGGYBACK 100 MG IVPB ×2 (12:26→20:00)
--- NOTE | 2023-12-31 14:51 | PC.NURSE ---
Nursing Care Hours: 0974-0999 Pt this shift calm and cooperative, alert and oriented. Independent in the room. No c/o pain but moaning d/t stomach discomfort post trial of clear liquids. Pt drank one juice and then just minimal sips of water, juice and broth. Declines pain medication at this time. Sufficient U/O. No reported BM this shift. IV patent. Detemir insulin given per schedule, job specification writer held aspart d/t lower level BS and not taking anything orally. CT of abdomen done today. VSS.
[2023-12-31 15:30] VITALS: BP 156/88; PULSE 84; RESP 18; TEMP 36.9; O2SAT 97
[2023-12-31] MEDS: PIPERACILLIN/TAZOBACTAM 3.375 GM in 0.9 % SODIUM CHLORIDE Mini-bag 100 ML IVPB ×2 (15:57→21:15)
[2023-12-31] MEDS: OXYCODONE 5 MG TABLET PO (19:51)
[2023-12-31 19:52] VITALS: BP 130/86; PULSE 84; TEMP 36.8; O2SAT 99
[2023-12-31] MEDS: AMLODIPINE 5 MG TABLET PO (21:07)
[2023-12-31] MEDS: SODIUM CHLORIDE 0.9 % (FLUSH) 10 ML SYRINGE 5 ML IVF (21:10)
[2023-12-31] MEDS: TACROLIMUS 0.5 MG CAPSULE 1 MG PO (21:10)
[2023-12-31 23:15] VITALS: BP 139/86; PULSE 88; RESP 16; O2SAT 96
[2024-01-01] VITALS (7 sets, daily range): BP systolic 125–145; BP diastolic 64–97; PULSE 80–93; RESP 16–18; TEMP 36.5–37.2; O2SAT 96–98
[2024-01-01] MEDS: PIPERACILLIN/TAZOBACTAM 3.375 GM in 0.9 % SODIUM CHLORIDE Mini-bag 100 ML IVPB ×4 (03:14→22:55)
[2024-01-01] MEDS: metroNIDAZOLE 500 MG/100 ML PIGGYBACK 100 MG IVPB ×3 (03:57→20:28)
[2024-01-01] MEDS: LEVOTHYROXINE 75 MCG TABLET PO (06:01)
[2024-01-01 06:27] LABS: Basophils Percent Auto 1.6 % (0.0-3.0); Eosinophils Percent Auto 2.5 % (0.0-7.0); Hematocrit 35.2 % (33.0-51.0); Hemoglobin* 11.3 gm/dL (12.0-16.0); Immature Granulocytes Pct Auto 0.9 %; Lymphocytes Percent Auto 21.4 % (20-44); Mean Corpuscular HGB Conc 32 gm/dL (32-36); Mean Corpuscular Hemoglobin 26 pg (26-34); Mean Corpuscular Volume 80 fL (80-100); Monocytes Percent Auto 12.2 % (0.0-11.0); Neutrophils Percent Auto 61.4 % (42.0-72.0); Platelet Count* 223 K/uL (140-440); RDW Coefficient of Variation % 13.2 % (11.5-15.5); Red Blood Count 4.42 m/uL (4.00-5.20); White Blood Count* 4.44 K/uL (4.50-11.00)
--- NOTE | 2024-01-01 06:33 | PC.NURSE ---
End of shift [id number]: Pt anxious and teary at beginning of shift. Pt settled in after provider went into room. VSS w/ sats >90% on RA. Reports 7/10 abdominal pain. PRN oxycodone given with stated relief. HS blood sugar 77. updated. no new orders. Pt refused blood sugar check overnight. Up at [facility]. Awaiting transfer. ?
[2024-01-01 06:35] LABS: Slide Review Reflex No
[2024-01-01 06:47] LABS: Albumin* 3.6 g/dL (3.3-5.0); Chloride* 109 mmol/L (96-114); Potassium* 3.3 mmol/L (3.6-5.1); Sodium* 139 mmol/L (135-149)
[2024-01-01 06:50] LABS: Anion Gap 4 mEq/L (7-15); Blood Urea Nitrogen* 3 mg/dL (7-30); Carbon Dioxide* 26 mmol/L (20-32); Est. Creatinine Clearance* 42.68; Estimated Glomerular Filt Rate 60 ml/min
[2024-01-01 06:51] LABS: Glucose* 109 mg/dL (60-115); Phosphorus* 3.7 mg/dL (2.5-4.5)
[2024-01-01 07:01] LABS: C Reactive Protein* < 0.5 mg/dL (0.5-1.0)
[2024-01-01 07:07] LABS: Calcium* 9.1 mg/dL (8.4-10.6)
[2024-01-01] MEDS: VANCOMYCIN 125 MG CAPSULE PO ×4 (09:25→20:32)
[2024-01-01] MEDS: predniSONE 5 MG TABLET PO (09:26)
[2024-01-01] MEDS: TACROLIMUS 0.5 MG CAPSULE 2 MG PO (09:26)
[2024-01-01] MEDS: carvediloL 6.25 MG TABLET 12.5 MG PO ×2 (09:26→20:32)
[2024-01-01] MEDS: mycophenolate mofetiL 250 MG CAPSULE 500 MG PO ×2 (09:26→20:35)
[2024-01-01] MEDS: 5 % DEXTROSE IN LAC RINGER'S 1,000 ML 125 ML IV ×2 (11:31→22:08)
[2024-01-01] MEDS: POTASSIUM CHLORIDE 10 MEQ/100 ML PIGGYBACK 100 MEQ IVPB (12:22)
[2024-01-01] MEDS: POTASSIUM CHLORIDE 10 MEQ CAPSULE ER 20 MEQ PO (12:43)
--- NOTE | 2024-01-01 13:09 | PM.IMPN1 ---
Progress Note: A&P Assessment and plan (1) Immunosuppression due to drug therapy: Problem details: 3 drug regimen: tacrolimus, cellcept, prednisone no change to these doses Status: Acute (2) Perforation of sigmoid colon due to diverticulitis: Problem details: -continue Zosyn, renally dose if needed (if GFR >40 I bump to 3.375mg) -discussed with our general surgery team, transplant team ([facility] [phone] DR. FARMER), and ID. -IV flagyl added to the PO Vanc -continue IV Zosyn -update imaging - stable/improved 12/30 -consider transfer pending CT results; clinical course -ID recommended Fidaxomicin. Holding secondary to cost, availability and transplant team ok with PO VANC. adding IV flagyl (until discharge) which all were in agreement. -ID recommended oral augmentin at discharge for at least two weeks, likely would need f/u imaging and colorectal consultation to stop abx -ID recommended oral fidaxomicin or Vanc for at least 10 days or longer if still on augmentin Status: Acute (3) C. difficile colitis: Problem details: no evidence of colitis on latest imaging on PO VANC and IV FLAGYL Status: Acute (4) Liver transplant recipient: Problem details: donor kidney transplant, simultaneous liver kidney transplant [facility] ([facility]) - [place]2016 etiology: HEP C LIVER FAILURE & HEPATORENAL SYNDROME Status: Acute (5) Kidney transplant recipient: Problem details: donor kidney transplant, simultaneous liver kidney transplant [facility] ([facility]) - [place]2016 etiology: HEP C LIVER FAILURE & HEPATORENAL SYNDROME Status: Acute (6) Anemia of chronic disease: Problem details: History hepatic renal, renal transplant, medically induced type 1 diabetes Status: Acute (7) CKD (chronic kidney disease): Problem details: Baseline creatinine 1.1-1.2, no proteinuria. 1.9 --> 1.1--> 1.0 - creatinine has returned to normal Status: Acute (8) Diabetes mellitus due to underlying condition: Problem details: -monitor glucose and sliding scale with home regimen if she is tolerating a diet -patient's blood glucose level has been 77-102. She is NPO. I did start D5 LR and she did have a little juice 1 her sugar was 77. Adjusting and holding insulin as appropriate. Status: Acute (9) Steroid dependent: Problem details: Daily 5 mg prednisone as part of her immunosuppression posttransplant Status: Acute (10) History of hepatitis C: Problem details: As etiology of liver failure and had a renal syndrome leading to simultaneous liver kidney transplant Status: Acute Subjective Date Seen: 01/01/24 Interval history: Daily Progress Note - Hospital Medicine Day #: 4 (5 from arrival in the ED) CC: Complicated perforated diverticulitis, POS CDIFF OVERNIGHT UPDATES FROM STAFF & MED, LAB, IMAGING UPDATES grumpy -hungry and tired of being in the hospital. no fever. passing loose stool; small mucus - amount is not much CBC is stable. No elevation in her white blood cell count. Hemoglobin is stable. Her platelets are stable. PH is stable. No CO2 retention. Electrolytes are normal, other than a mild low in her potassium.. Her creatinine is normal. LFTs are normal. Her CRP continues to downtrend. Incontinent stools, tested positive for C diff. Patient is diabetic - advanced diet 12/31 130, 107, 77 Objective: Resting comfortably Vitals: see above Lungs: Clear. Cardiac: S1S2. Abdomen: Mildly distended. Mildly tender. No evidence of peritonitis. Disposition/Potential discharge - Likely to return to previous living situation. Today I spent 50minutes seeing the patient, reviewing Expanse and EPIC notes/diagnostics, discussing the care plan with our care time that includes social work, PT/OT, pharmacy, RT, half-way and documenting my impressions and plan in the medical record. Exam Const: Vital Signs, click to edit/add: Vital Signs - 24 hr 12/31/23 15:30 12/31/23 19:52 12/31/23 23:15 Temperature 98.5 F 98.2 F Pulse Rate [Pulse Oximeter] 84 84 88 Respiratory Rate 18 16 Blood Pressure [Le ft Arm] Blood Pressure [ri ght forearm] 156/88 H 130/86 139/86 Pulse Oximetry 97 99 96 Oxygen Delivery Me thod Room Air Room Air Room Air 01/01/24 03:17 01/01/24 07:00 01/01/24 11:00 Temperature 98.9 F 98.6 F 98.6 F Pulse Rate [Pulse Oximeter] 93 87 87 Respiratory Rate 16 16 16 Blood Pressure [Le ft Arm] 135/73 145/86 H Blood Pressure [ri ght forearm] 125/97 H Pulse Oximetry 96 97 98 Oxygen Delivery Me thod Room Air Room Air Room Air Labs Labs: Laboratory Results - last 24 hr 01/01/24 05:55 WBC 4.44 L RBC 4.42 Hgb 11.3 L Hct 35.2 MCV 80 MCH 26 MCHC 32 RDW Coeff of Amelia 13.2 Plt Count 223 Neut % (Auto) 61.4 Lymph % (Auto) 21.4 [place] % (Auto) 12.2 H Eos % (Auto) 2.5 Baso % (Auto) 1.6 Neut # (Auto) 2.70 Lymph # (Auto) 1.00 [place] # (Auto) 0.50 Eos # (Auto) 0.10 Baso # (Auto) 0.10 Abs Immat Gran (auto) 0.00 Imm/Tot Granulo (auto) 0.9 Sodium 139 Potassium 3.3 L Chloride 109 Carbon Dioxide 26 Anion Gap 4 L BUN 3 L Creatinine 1.0 Estimated Creat Clear 42.68 Estimated GFR 60 Glucose 109 Calcium 9.1 Phosphorus 3.7 C-Reactive Protein < 0.5 L Albumin 3.6
[2024-01-01] MEDS: INSULIN ASPART 100 UNIT/ML 8 UNIT SUBCUT (17:09)
--- NOTE | 2024-01-01 18:37 | PC.NURSE ---
End of Shift: The patient is calm and cooperative. VSS on RA. Up ad [facility] in her room. Enhanced contact precautions remain in place. New IV was placed in R forearm today due to infiltration. Potassium tablets were given today. IV abx continue. Reported mild pain this morning throughout her abdomen 12/12 but reported that it was a tolerable level for her. Hypoactive BS in all quadrants. Loose stools continue intermittently throughout the day with urgency. Order obtained to advance to a soft then AAT diet this AM. Patient is tolerating this well with no N/V. Did report occasional cramping in her stomach this evening. IV fluids @ 125. Transfer to [facility] hopefully tomorrow.. awaiting open bed. Calls appropriately.
[2024-01-01] MEDS: AMLODIPINE 5 MG TABLET PO ×2 (20:33→20:34)
[2024-01-01] MEDS: TACROLIMUS 0.5 MG CAPSULE 1 MG PO (20:35)
[2024-01-01] MEDS: MELATONIN 3 MG TABLET PO (22:49)
[2024-01-02] VITALS (7 sets, daily range): BP systolic 123–150; BP diastolic 67–100; PULSE 83–91; RESP 14–20; TEMP 36.7–36.9; O2SAT 94–96
[2024-01-02] MEDS: ONDANSETRON 2 MG/ML inj 4 MG IVP (03:05)
[2024-01-02] MEDS: OXYCODONE 5 MG TABLET PO (03:06)
[2024-01-02] MEDS: metroNIDAZOLE 500 MG/100 ML PIGGYBACK 100 MG IVPB (04:15)
--- NOTE | 2024-01-02 05:08 | PC.NURSE ---
Shift note: Pt is doing well except frequency of micturition. Alert and oriented. No pain, fever and diarrhea recorded. Vitally stable. Pt tolerated regular diet well. Interrupted sleep pattern r/t the need to use the bathroom frequently.
[2024-01-02] MEDS: PIPERACILLIN/TAZOBACTAM 3.375 GM in 0.9 % SODIUM CHLORIDE Mini-bag 100 ML IVPB (05:15)
[2024-01-02] MEDS: 5 % DEXTROSE IN LAC RINGER'S 1,000 ML 125 ML IV (06:14)
[2024-01-02] MEDS: LEVOTHYROXINE 75 MCG TABLET PO (06:48)
[2024-01-02] MEDS: carvediloL 6.25 MG TABLET 12.5 MG PO ×2 (09:16→20:59)
[2024-01-02] MEDS: VANCOMYCIN 125 MG CAPSULE PO ×4 (09:16→20:53)
[2024-01-02] MEDS: TACROLIMUS 0.5 MG CAPSULE 2 MG PO (09:17)
[2024-01-02] MEDS: mycophenolate mofetiL 250 MG CAPSULE 500 MG PO ×2 (09:17→20:55)
[2024-01-02] MEDS: predniSONE 5 MG TABLET PO (09:17)
[2024-01-02] MEDS: ERTAPENEM 1 GM in 0.9 % SODIUM CHLORIDE Mini-bag 100 ML IVPB (11:07)
--- NOTE | 2024-01-02 11:25 | PM.IMPN1 ---
Progress Note: A&P Assessment and plan (1) Immunosuppression due to drug therapy: Problem details: 3 drug regimen: tacrolimus, cellcept, prednisone no change to these doses Status: Acute (2) Perforation of sigmoid colon due to diverticulitis: Problem details: Switch from Zosyn to ertapenem with possible outpatient ertapenem pending follow-up with transplant team -discussed with our general surgery team, transplant team ([facility] [phone] DR. FARMER), and ID. -update imaging - stable/improved 12/30 She remains on a list for transfer to the [facility] if for she gets care from a transplant team -ID recommended oral augmentin at discharge for at least two weeks, likely would need f/u imaging and colorectal consultation to stop abx -ID recommended oral Vanc for at least 10 days or longer if still on augmentin Status: Acute (3) C. difficile colitis: Problem details: no evidence of colitis on latest imaging on PO VANC . 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 1.9 --> 1.1--> 1.0 - creatinine has returned to normal Status: Acute (8) Diabetes mellitus due to underlying condition: Problem details: -monitor glucose and sliding scale with home regimen if she is tolerating a diet -patient's blood glucose level has been 77-102. She is NPO. I did start D5 LR and she did have a little juice 1 her sugar was 77. Adjusting and holding insulin as appropriate. Stop IV fluids and continue to monitor blood sugar Status: Acute (9) Steroid dependent: Problem details: Daily 5 mg prednisone as part of her immunosuppression posttransplant Status: Acute (10) History of hepatitis C: Problem details: As etiology of liver failure and had a renal syndrome leading to simultaneous liver kidney transplant Status: Acute Plan Continue in hospital for IV antibiotics. Consider outpatient IV antibiotics pending plan of follow-up with transplant team at [facility] Time Spent With Patient Total time spent: Total time spent today is 60 minutes, 40 minutes in coordination of care discussing with patient and other providers management of diverticulitis, C diff colitis, immunosuppression and transplant evaluation management Subjective Date Seen: 01/02/24 Interval history: HPI: 73-year-old with a history of liver and renal transplants presents with acute abdominal pain. Patient had initially been seen in the urgent care on 12/27 and was told to present to our ER on the same day. Patient has been in the ER for 24 hours as they were attempting to transfer her to tertiary care/transplant team. Her abdominal pain has been identified as acute perforated sigmoid diverticulitis. However she has had a stable 24 hours and a decrease in her pain and fever. It is felt at this time she is not a surgical candidate. Her perforations are limited and small. She has not evidence of abscess. No evidence of sepsis. Her labs have improved over 24 hours including a return to her normal creatinine. In consultation with our general surgery staff and her transplant team at the [facility] it was felt safe that she could admit here to [facility] for continued conservative management of her acute complicated diverticulitis. Patient reports continued to improve. She has been treated with piperacillin tazobactam for diverticulitis and oral vancomycin and IV metronidazole for her C diff infection. She is requesting discontinuing IV fluids and she reports being able to tolerate p.o. food and fluid. Exam Narrative: Exam Narrative: She is alert and appears in no distress. She gives her own history. Oropharynx is normal. Neck is supple without mass or adenopathy. Respirations are clear to auscultation. Cardiovascular: S1, S2, regular rate and rhythm. No murmur gallop or rub. Abdomen: Bowel sounds active. Abdomen is soft. She has mild left-sided in lower abdominal tenderness. No peritonitis. No mass. Extremities without edema. Const: Vital Signs, click to edit/add: Vital Signs - 24 hr 01/01/24 15:00 01/01/24 15:00 01/01/24 19:00 Temperature 98.2 F 99 F Pulse Rate [Pulse Oximeter] 80 80 87 Respiratory Rate 18 18 18 Blood Pressure [Le ft Arm] 130/79 Blood Pressure [ri ght forearm] 140/64 H Pulse Oximetry 98 97 Oxygen Delivery Me thod Room Air Room Air 01/01/24 22:48 01/01/24 23:00 01/02/24 03:07 Temperature 97.7 F 98.5 F Pulse Rate [Pulse Oximeter] 89 89 83 Respiratory Rate 18 18 20 Blood Pressure [Le ft Arm] Blood Pressure [ri ght forearm] 140/88 H 149/69 H Pulse Oximetry 97 94 Oxygen Delivery Me thod Room Air Room Air 01/02/24 07:00 Temperature 98.2 F Pulse Rate [Pulse Oximeter] 85 Respiratory Rate 16 Blood Pressure [Le ft Arm] 150/100 H Blood Pressure [ri ght forearm] Pulse Oximetry 95 Oxygen Delivery Me thod Room Air Documenting provider has reviewed patient's vital signs: yes
--- NOTE | 2024-01-02 12:55 | P.GSPN_ITS ---
Subjective Subjective Date Seen: 01/02/24 Interval history: Feeling better overall. Stools are becoming more formed. Still having some lower abdominal pain. Is tolerating full liquids. Exam Narrative: Exam Narrative: General: No acute distress Abdomen: Still with tenderness on the lower abdomen. Const: Vital Signs, click to edit/add: Vital Signs - 24 hr 01/01/24 15:00 01/01/24 15:00 01/01/24 19:00 Temperature 98.2 F 99 F Pulse Rate [Pulse Oximeter] 80 80 87 Respiratory Rate 18 18 18 Blood Pressure [Le ft Arm] 130/79 Blood Pressure [ri ght forearm] 140/64 H Pulse Oximetry 98 97 Oxygen Delivery Me thod Room Air Room Air 01/01/24 22:48 01/01/24 23:00 01/02/24 03:07 Temperature 97.7 F 98.5 F Pulse Rate [Pulse Oximeter] 89 89 83 Respiratory Rate 18 18 20 Blood Pressure [Le ft Arm] Blood Pressure [ri ght forearm] 140/88 H 149/69 H Pulse Oximetry 97 94 Oxygen Delivery Me thod Room Air Room Air 01/02/24 07:00 01/02/24 11:00 Temperature 98.2 F 98.5 F Pulse Rate [Pulse Oximeter] 85 88 Respiratory Rate 16 16 Blood Pressure [Le ft Arm] 150/100 H 123/78 Blood Pressure [ri ght forearm] Pulse Oximetry 95 96 Oxygen Delivery Me thod Room Air Room Air Labs/Imaging Labs Labs: No other labs today. Progress Note:A&P Assessment and plan (1) C. difficile colitis: Status: Acute (2) Perforation of sigmoid colon due to diverticulitis: Status: Acute (3) Liver transplant recipient: Status: Acute (4) Kidney transplant recipient: Status: Acute Plan The patient is a 73-year-old female transplant patient with perforated diverticulitis and C diff colitis. Continue to attempt to transfer to [facility], who is following her for transplant however there no beds available for transfers. -clinically she is stable. -recommend continuing to advance diet. Continue IV ertapenem and oral vanco per ID recommendations. -as long as pain is controlled and patient is tolerating diet, may be okay to discharge home with short-term follow-up at transplant center. Attempts to arrange this yesterday failed however will try again on [place] morning to try to get her an appointment. Having significant difficulty communicating with [employer].
--- NOTE | 2024-01-02 18:28 | PC.NURSE ---
End of Shift: Patient is independent in her room. IV abx continue... changed to Ertapenem. Walked in the hallway... reported mild abdominal discomfort but denied the need for pain medication. Appetite is improving. BM this shift... reports less loose stools. Saline locked this AM and IV fluids were d/c per Dr's order.Calls appropriately. Marybeth MELCHOR BSN.
[2024-01-02] MEDS: TACROLIMUS 0.5 MG CAPSULE 1 MG PO (20:53)
[2024-01-02] MEDS: SODIUM CHLORIDE 0.9 % (FLUSH) 10 ML SYRINGE 5 ML IVF (21:04)
[2024-01-02] MEDS: AMLODIPINE 5 MG TABLET PO (21:16)
[2024-01-02] MEDS: ZOLPIDEM 5 MG TABLET PO (21:57)
[2024-01-03] VITALS (8 sets, daily range): BP systolic 132–150; BP diastolic 72–93; PULSE 82–87; RESP 14–18; TEMP 36.6–36.9; O2SAT 95–97
[2024-01-03 06:12] LABS: Lactate* 0.8 mmol/L (0.5-1.9)
[2024-01-03 06:22] LABS: Basophils Absolute Auto 0.11 K/uL (0.00-0.30); Basophils Percent Auto 1.7 % (0.0-3.0); Eosinophils Percent Auto 4.6 % (0.0-7.0); Hematocrit 37.4 % (33.0-51.0); Hemoglobin* 11.8 gm/dL (12.0-16.0); Immature Granulocytes Abs Auto 0.09 K/uL (0.00-0.30); Immature Granulocytes Pct Auto 1.4 %; Lymphocytes Percent Auto 18.3 % (20-44); Mean Corpuscular HGB Conc 32 gm/dL (32-36); Mean Corpuscular Hemoglobin 26 pg (26-34); Mean Corpuscular Volume 81 fL (80-100); Monocytes Percent Auto 10.7 % (0.0-11.0); Neutrophils Absolute Auto 4.16 K/uL (1.7-7.0); Neutrophils Percent Auto 63.3 % (42.0-72.0); Platelet Count* 234 K/uL (140-440); RDW Coefficient of Variation % 13.4 % (11.5-15.5); Red Blood Count 4.61 m/uL (4.00-5.20); White Blood Count* 6.56 K/uL (4.50-11.00)
[2024-01-03 06:33] LABS: Chloride* 109 mmol/L (96-114); Potassium* 3.7 mmol/L (3.6-5.1); Sodium* 140 mmol/L (135-149)
[2024-01-03 06:35] LABS: Slide Review Reflex No
[2024-01-03 06:36] LABS: Anion Gap 7 mEq/L (7-15); Blood Urea Nitrogen* 6 mg/dL (7-30); Carbon Dioxide* 24 mmol/L (20-32); Creatinine* 0.9 mg/dL (0.5-1.5); Est. Creatinine Clearance* 42.68; Estimated Glomerular Filt Rate 68 ml/min
[2024-01-03 06:37] LABS: Calcium* 9.3 mg/dL (8.4-10.6); Glucose* 112 mg/dL (60-115)
--- NOTE | 2024-01-03 06:42 | PC.NURSE ---
End of shift note [id number]: Pt noted to be alert & oriented x 4 and able to make needs known. VSS and pt afebrile last evening. IV to R FA patent and SL with slight leaking noted at insertion site. Pt transfers/ambulates independently in room. She remains on enhanced precautions due to C. difficile infection. Pt refused 6.25 mg Coreg and Lovenox with HS medications despite education provided. She stated, ?I only take one of these twice a day at home?. Sand Cleaning Machine Operator did inform pt that supply was two 6.25 mg tabs to make total dose of 12.5 mg though pt stated she normally takes one 6.25 mg tab BID when at home. Pt denying pain or cough when asked. Blood glucose of 132 last evening. Pt has been continent of bladder and has been denying loose stools this shift when asked. Pt refused?VS to be assessed overnight when approached though denied pain when asked. She requested PRN Zolpidem to be given last evening which was then completed. Pt refused Levothyroxine this morning when approached by this ticket writer, pt stating she will take medication later this morning.
[2024-01-03] MEDS: VANCOMYCIN 125 MG CAPSULE PO ×4 (09:06→20:53)
[2024-01-03] MEDS: predniSONE 5 MG TABLET PO (09:06)
[2024-01-03] MEDS: carvediloL 6.25 MG TABLET 12.5 MG PO ×2 (09:06→20:52)
[2024-01-03] MEDS: LEVOTHYROXINE 75 MCG TABLET PO (09:06)
[2024-01-03] MEDS: mycophenolate mofetiL 250 MG CAPSULE 500 MG PO ×2 (09:07→20:53)
[2024-01-03] MEDS: TACROLIMUS 0.5 MG CAPSULE 2 MG PO (09:07)
[2024-01-03] MEDS: SODIUM CHLORIDE 0.9 % (FLUSH) 10 ML SYRINGE 5 ML IVF ×2 (09:10→20:55)
[2024-01-03] MEDS: INSULIN ASPART 100 UNIT/ML 8 UNIT SUBCUT (09:11)
[2024-01-03] MEDS: ERTAPENEM 1 GM in 0.9 % SODIUM CHLORIDE Mini-bag 100 ML IVPB (10:58)
--- NOTE | 2024-01-03 12:41 | PM.IMPN1 ---
Progress Note: A&P Assessment and plan (1) C. difficile colitis: Problem details: no evidence of colitis on latest imaging on PO VANC . Diarrhea improving Status: Acute (2) Perforation of sigmoid colon due to diverticulitis: Problem details: Switch from Zosyn to ertapenem with possible outpatient ertapenem pending follow-up with transplant team -discussed with our general surgery team, transplant team ([facility] [phone] DR[address] FAMRER), and ID. -update imaging - stable/improved 12/30 She remains on a list for transfer to the [facility] if for she gets care from a transplant team -ID recommended oral augmentin at discharge for at least two weeks, likely would need f/u imaging and colorectal consultation to stop abx -ID recommended oral Vanc for at least 10 days or longer if still on augmentin Plan outpatient ertapenem pending follow-up at [facility]. 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 Status: Acute Plan Continue in hospital for another day of IV antibiotics. Possible discharge to home tomorrow with IV antibiotics as outpatient if patient continues to do well. He has follow-up planned with transplant team at [facility]. Time Spent With Patient Total time spent: Total time spent today is 40 minutes, 30 minutes in coordination of care and discussing with patient and other providers plan of disposition Subjective Date Seen: 01/03/24 Interval history: HPI: 73-year-old with a history of liver and renal transplants presents with acute abdominal pain. Patient had initially been seen in the urgent care on 12/27 and was told to present to our ER on the same day. Patient has been in the ER for 24 hours as they were attempting to transfer her to tertiary care/transplant team. Her abdominal pain has been identified as acute perforated sigmoid diverticulitis. However she has had a stable 24 hours and a decrease in her pain and fever. It is felt at this time she is not a surgical candidate. Her perforations are limited and small. She has not evidence of abscess. No evidence of sepsis. Her labs have improved over 24 hours including a return to her normal creatinine. In consultation with our general surgery staff and her transplant team at the [facility] it was felt safe that she could admit here to [facility] for continued conservative management of her acute complicated diverticulitis. January 01: Patient reports continued to improve. She has been treated with piperacillin tazobactam for diverticulitis and oral vancomycin and IV metronidazole for her C diff infection. She is requesting discontinuing IV fluids and she reports being able to tolerate p.o. food and fluid. January 02: Patient reports feeling better and anxious to go home. Tolerating p.o. food and fluid. Diarrhea is better though not completely resolved Exam Narrative: Exam Narrative: She is alert and appears in no distress. Respirations are clear to auscultation. Cardiovascular: S1, S2, regular rate and rhythm. Abdomen is soft with mild lower abdominal tenderness. No mass. No peritonitis. No edema. Const: Vital Signs, click to edit/add: Vital Signs - 24 hr 01/02/24 15:00 01/02/24 20:04 01/02/24 22:42 Temperature 98.5 F 98.0 F Pulse Rate [Pulse Oximeter] 91 87 87 Respiratory Rate 14 16 16 Blood Pressure [Le ft Arm] 142/79 H 131/67 Blood Pressure [ri ght forearm] Pulse Oximetry 96 96 Oxygen Delivery Me thod Room Air Room Air 01/02/24 23:50 01/03/24 02:11 01/03/24 07:45 Temperature Pulse Rate [Pulse Oximeter] 87 Respiratory Rate 14 16 18 Blood Pressure [Le ft Arm] Blood Pressure [ri ght forearm] Pulse Oximetry Oxygen Delivery Me thod 01/03/24 07:52 Temperature 98.4 F Pulse Rate [Pulse Oximeter] 87 Respiratory Rate 18 Blood Pressure [Le ft Arm] Blood Pressure [ri ght forearm] 134/93 H Pulse Oximetry 97 Oxygen Delivery Me thod Room Air Documenting provider has reviewed patient's vital signs: yes Labs Labs: Laboratory Results - last 24 hr 01/03/24 06:00 WBC 6.56 RBC 4.61 Hgb 11.8 L Hct 37.4 MCV 81 MCH 26 MCHC 32 RDW Coeff of Amelia 13.4 Plt Count 234 Neut % (Auto) 63.3 Lymph % (Auto) 18.3 L [place] % (Auto) 10.7 Eos % (Auto) 4.6 Baso % (Auto) 1.7 Neut # (Auto) 4.16 Lymph # (Auto) 1.20 [place] # (Auto) 0.70 Eos # (Auto) 0.30 Baso # (Auto) 0.11 Abs Immat Gran (auto) 0.09 Imm/Tot Granulo (auto) 1.4 Sodium 140 Potassium 3.7 Chloride 109 Carbon Dioxide 24 Anion Gap 7 BUN 6 L Creatinine 0.9 Estimated Creat Clear 42.68 Estimated GFR 68 Glucose 112 Lactate 0.8 Calcium 9.3
--- NOTE | 2024-01-03 17:40 | PC.NURSE ---
End of shift.. pt has been very pleasant. no pain. alert & oriented x 4. she is on C-Diff precautions. SL was leaking and new SL was started in the right a/c see BS pt did not want insulin at 1300 or 1800. she is up on her own. she was been watching TV.
[2024-01-03] MEDS: AMLODIPINE 5 MG TABLET PO (20:51)
[2024-01-03] MEDS: TACROLIMUS 0.5 MG CAPSULE 1 MG PO (20:53)
[2024-01-03] MEDS: ZOLPIDEM 5 MG TABLET PO (21:58)
[2024-01-04 03:00] VITALS: RESP 16
--- NOTE | 2024-01-04 05:43 | PC.NURSE ---
Lab staff approached pt to draw morning labs at this time though notified this medical underwriter that pt is refusing to have labs drawn asking, Can you come back later? though lab staff only has 2 patients to draw this morning. Pipefitter Helper then approached pt and asked if lab staff could draw morning labs as it is important to monitor labs, especially if she is going to discharge today. Patient huffed and responded, Fuck. I just want to sleep... God kayla. (it should be noted that staff have not woken patient up since she fell asleep after 2200 as patient put her call light on to obtain daily weight when she was last up to use the bathroom). Pipefitter Helper then asked patient if she was refusing to have morning labs drawn to which patient responded, Can't they just come back later? Pipefitter Helper updated studio operations engineer in charge that patient is refusing to have morning labs drawn despite encouragement and education provided from this medical underwriter.
--- NOTE | 2024-01-04 06:47 | PC.NURSE ---
End of shift note [id number]: Pt remains alert & oriented x 4 and able to make needs known. VSS and pt has been afebrile. Pt transfers/ambulates independently in room and is continent of bowel and bladder. Pt has been denying pain when asked and denies cough when asked. ?No edema noted. IV to L AC patent and SL. Pt reported stool ?starting to firm up? when asked and described stool as soft instead of loose yesterday. Pt continues to tolerate regular diet and had pudding cup for HS snack. Blood glucose of 107 at HS. Pt refused morning labs this morning and swore at staff when reapproached, educated and encouraged. ?She allowed residential mortgage underwriter to check vital signs before going to bed at 2200 though refuses to be woken up overnight and states she does not want AM Synthroid until she wakes up later this morning.
[2024-01-04 07:00] VITALS: BP 122/100; BP 136/95; PULSE 99; RESP 16; TEMP 37.1; O2SAT 95
[2024-01-04] MEDS: predniSONE 5 MG TABLET PO (09:26)
[2024-01-04] MEDS: carvediloL 6.25 MG TABLET 12.5 MG PO (09:26)
[2024-01-04] MEDS: LEVOTHYROXINE 75 MCG TABLET PO (09:26)
[2024-01-04] MEDS: VANCOMYCIN 125 MG CAPSULE PO (09:26)
[2024-01-04] MEDS: TACROLIMUS 0.5 MG CAPSULE 2 MG PO (09:26)
[2024-01-04] MEDS: SODIUM CHLORIDE 0.9 % (FLUSH) 10 ML SYRINGE 5 ML IVF (09:29)
[2024-01-04] MEDS: mycophenolate mofetiL 250 MG CAPSULE 500 MG PO (09:29)
[2024-01-04] MEDS: ERTAPENEM 1 GM in 0.9 % SODIUM CHLORIDE Mini-bag 100 ML IVPB (10:42)
--- NOTE | 2024-01-04 12:30 | PM.DS1 ---
DS: Providers Provider Date Seen: 01/04/24 Date of admission: 12/29/23 14:53 Primary care physician: Ashli Howell Admitting Clinician: Vanda Fajardo MD Date of Discharge: 01/04/24 DS: Diagnosis Discharge Diagnosis (1) Perforation of sigmoid colon due to diverticulitis: Status: Acute Problem details: Clinically patient is much improved. Her pain is resolved. She is eating a normal diet. Stools are soft. Will discharge to home with outpatient ertapenem pending follow-up at the [facility]. -discussed with our general surgery team, transplant team ([facility] [phone] DR. FARMER), and ID. -update imaging - stable/improved 12/30 (2) C. difficile colitis: Status: Acute Problem details: no evidence of colitis on latest imaging on PO VANC . Diarrhea improving. 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 (8) CKD (chronic kidney disease): Status: Acute Problem details: Baseline creatinine 1.1-1.2, no proteinuria. 1.9 --> 1.1--> 1.0 - creatinine has returned to normal DS: Summary Hospital Course Hospital Course: HPI: 73-year-old with a history of liver and renal transplants presents with acute abdominal pain. Patient had initially been seen in the urgent care on 12/27 and was told to present to our ER on the same day. Patient has been in the ER for 24 hours as they were attempting to transfer her to tertiary care/transplant team. Her abdominal pain has been identified as acute perforated sigmoid diverticulitis. However she has had a stable 24 hours and a decrease in her pain and fever. It is felt at this time she is not a surgical candidate. Her perforations are limited and small. She has not evidence of abscess. No evidence of sepsis. Her labs have improved over 24 hours including a return to her normal creatinine. In consultation with our general surgery staff and her transplant team at the [facility] it was felt safe that she could admit here to [facility] for continued conservative management of her acute complicated diverticulitis. January 01: Patient reports continued to improve. She has been treated with piperacillin tazobactam for diverticulitis and oral vancomycin and IV metronidazole for her C diff infection. She is requesting discontinuing IV fluids and she reports being able to tolerate p.o. food and fluid. January 02: Patient reports feeling better and anxious to go home. Tolerating p.o. food and fluid. Diarrhea is better though not completely resolved January 03: Patient continues to report feeling well and is very anxious to go home. Still attempting to reach out to the the transplant team at [facility] to arrange outpatient follow-up to determine further evaluation and treatment of perforated sigmoid diverticulitis and C diff infection. Pending that outpatient follow-up will continue the patient on ertapenem IV daily. Time Spent with Patient Time attestation: Total time spent providing and/or coordinating discharge services:40 mins. Exam Narrative: Exam Narrative: She is alert appears in no distress. Abdomen is soft. Minimal left lower quadrant tenderness. Const: Vital Signs, click to edit/add: Vital Signs - 24 hr 01/03/24 13:37 01/03/24 16:27 01/03/24 17:09 Temperature Pulse Rate [Pulse Oximeter] Respiratory Rate 18 Blood Pressure [Le ft Arm] Blood Pressure [ri ght forearm] Pulse Oximetry Oxygen Delivery Me thod Room Air Room Air 01/03/24 19:17 01/03/24 21:59 01/03/24 23:00 Temperature 98.2 F 97.9 F Pulse Rate [Pulse Oximeter] 83 82 82 Respiratory Rate 14 16 16 Blood Pressure [Le ft Arm] Blood Pressure [ri ght forearm] 146/84 H 150/72 H Pulse Oximetry 96 95 Oxygen Delivery Me thod Room Air Room Air 01/04/24 03:00 01/04/24 07:00 01/04/24 07:00 Temperature 98.7 F Pulse Rate [Pulse Oximeter] 99 99 Respiratory Rate 16 16 16 Blood Pressure [Le ft Arm] 136/95 H Blood Pressure [ri ght forearm] 122/100 H Pulse Oximetry 95 Oxygen Delivery Me thod Room Air Documenting provider has reviewed patient's vital signs: yes DS: Data Data Completed and Pending Labs on day of discharge: Preliminary micro results at discharge 12/30/23 20:39 Stool Culture - Preliminary Stool Imaging CT scan - abdomen: My impression: Patient: PRAVEEN BRITTON Facility:?[facility] RIS Patient ID:?[id number] Site Patient ID:?[id number]. Site :?[id number] Study:?CT-Abdomen/Pelvis W/ 65CC ISOVUE 370-12/31/2023 10:49:46 AM Ordering Physician:?Vanda Fajardo Final Report: INDICATION: Clostridium difficile. Perforated diverticulitis. History of liver and renal transplant. COMPARISON: December 27, 2023 TECHNIQUE: CT examination of the abdomen and pelvis was performed following the uneventful intravenous administration of 65 cc of Isovue 370. Thin section axial images were obtained from the lung bases through the pubic symphysis. Oral contrast was not administered. Please note that all CT scans at this facility use dose modulation, iterative reconstruction, and/or weight-based dosing when appropriate to reduce radiation dose to as low as reasonably achievable. FINDINGS: LUNG BASES: The lung bases as visualized appear normal.The heart size is normal at the lung bases. LIVER/BILIARY SYSTEM:Normal-sized liver. A few cysts are noted. Mild intrahepatic ductal dilation and moderate extrahepatic biliary ductal dilation similar to the prior study.No visible distal choledocholithiasis or periampullary mass. ADRENALS: Normal KIDNEYS, URETERS and BLADDER:The [place] kidneys show no mass and are mildly atrophic. No obstructive uropathy regarding the [place] kidneys. Transplant kidney in the right lower quadrant without associated hydronephrosis, mass or perinephric collection. SPLEEN:Normal appearance. PANCREAS: Appears normal. RETROPERITONEUM and MESENTERY: There is no mass, adenopathy or aortic aneurysm. Atherosclerotic vascular calcification GASTROINTESTINAL SYSTEM: There are no global overall findings of Clostridium difficile colitis on this exam. No diffuse or localized wall thickening except at the sigmoid. There is diverticulosis. There are findings again noted acute sigmoid diverticulitis. This presents primarily as inflammatory change near the sigmoid and in the sigmoid mesocolon with a small amount of gas in the sigmoid mesocolon. The overall appearance is similar to slightly improved. There is a small fluid collection in this area that is not walled-off measuring about 1.4 x 1.6 centimeters from axial image 97 and coronal image 61. This fluid was present previously PELVIS: No adenopathy or mass. OSSEOUS STRUCTURES and ABDOMINAL WALL: There is an age-appropriate appearance of the osseous structures.No significant abdominal wall defect. OTHER: No free fluid or free air. IMPRESSION: 1. There is no overall colonic finding to suggest Clostridium difficile colitis. No diffuse wall thickening. The only focal thickening is seen in the region of the sigmoid diverticulitis. 2. Redemonstration of findings of acute sigmoid diverticulitis. Features include inflammatory change near the sigmoid, a small amount of air in the sigmoid mesocolon, and a small amount of fluid. The air component is slightly smaller. The inflammatory change is similar to slightly improved. A small fluid collection without an apparent Lara noted measuring 1.4 x 1.6 centimeters essentially unchanged Discharge Plan Discharge Disposition: Home, Self-Care Date of Admission: 12/29/23 14:53 Attending Provider on Discharge: Davie Bess Consulting Providers: Lissa Page; Luis Daniel Mak; Coby Ashby; José Arredondo; Catalino Sparrow; Jennifer Perez; Rosalind Ward; Lise Alvarez Primary Care Provider: Ashli Howell Condition: Improved Anticipated Discharge Date/Time: 01/04/24 11:00 Discharge Medications: New vancomycin 125 mg Capsule 125 mg PO QID Qty: 40 0RF Continued tacrolimus 1 mg capsule 1 - 2 mg PO BID Rx Instructions: 2 MG IN THE MORNING 1 MG IN THE EVENING. trazodone 50 mg tablet 50 mg PO HS PRN amlodipine 5 mg tablet 5 mg PO HS mycophenolate mofetil 250 mg capsule 500 mg PO BID insulin aspart U-100 [Novolog FlexPen U-100 Insulin] 100 unit/mL (3 mL) insulin pen 8 unit subcut TIDWM Rx Instructions: PLUS SLIDING SCALE prednisone 5 mg tablet 5 mg PO QAM carvedilol 12.5 mg tablet 12.5 mg PO BID insulin degludec [Tresiba FlexTouch U-100] 100 unit/mL (3 mL) insulin pen 20 unit subcut QAM atorvastatin 10 mg tablet 10 mg PO HS (DME) pen needle, diabetic [BD Ultra-Fine Micro Pen Needle] 32 gauge x 1/4 needle See Rx Instructions .ROUTE BID Qty: 50 Rx Instructions: As directed (DME) lancets [Accu-Chek Softclix Lancets] Misc See Rx Instructions .ROUTE 3XD Qty: 100 Rx Instructions: As directed (DME) Accu-Chek Guide test strips Strip See Rx Instructions .ROUTE .MEDSUPPLY Qty: 10 Rx Instructions: As directed (DME) blood-glucose meter [Accu-Chek Guide Me Glucose Mtr] Misc See Rx Instructions .ROUTE .MEDSUPPLY Qty: 1 Patient Comments: [NO ORIGINAL SIG] Rx Instructions: As directed Ozempic 2 mg/dose (8 mg/3 mL) pen injector 2 mg subcut QWEEK Qty: 9 3RF Patient Comments: THURSDAY OR THURSDAY (DME) Dexcom G6 Sensor Device See Rx Instructions .Route Qty: 6 3RF Rx Instructions: As directed (DME) Dexcom G6 Abrasives Sales Representative Misc See Rx Instructions .Route Qty: 1 0RF Rx Instructions: As directed levothyroxine 75 mcg tablet 75 mcg PO DAILY alendronate 70 mg tablet 70 mg PO QWEEK acyclovir 400 mg tablet 400 mg PO BID PRN (DME) Dexcom G6 Transmitter Device See Rx Instructions .Route Qty: 1 0RF Rx Instructions: As directed Discharge Orders: Discharge Order (Routine); Ordered 01/04/24 Ordered By: Davie Bess Patient Education: Vancomycin (By mouth), Diverticulitis (DC) Additional Instructions: Return to [facility] once a day for outpatient IV antibiotics. Activity Level: No Restrictions Discharge Diet: Regular Follow Up Appointments: Transplant Clinic, [facility] [Other] (BOTH THE HEPATOLOGY TEAM AND RENAL TEAM KNOW ABOUT HER AND WILL CALL HER FOR F/U NEXT WEEK (01/03-01/07) [address] [place] [address] ) Ashli Howell MD [Primary Care Provider] - 01/12/24 11:15 am ([facility] for follow-up.) Forms: Anne Fogarty Info Instructions
--- NOTE | 2024-01-04 12:34 | PC.NURSE ---
The patient was given all discharge information by RN regarding follow up appointments, information to return to [facility] each week day for out patient ABX.. L AC IV was left in and wrapped. Patent and CDI. Prescriptions sent to [facility] per patient request. She was also instructed to come to Med/surg this weeked for IV ABX infusion. Marybeth MELCHOR BSN
--- NOTE | 2024-01-04 12:42 | PC.NURSE ---
Nursing discharge note: Pt is A&O x4, afebrile and VSS today. Pt is independent in her room. PIV in left AC SL and C/D/I. IV abx administered q24 per MAR. Pt was instructed on having outpatient infusions for the rest of the week after discharge so PIV was left in place. Pt refused all cares until 0900 when she woke up for the day. She refused AM labs, MD aware. Pt denied having any nausea, pain or SOB today. Denies having a BM today. AM blood sugar 134; SS Novolog and 8 units Novolg held. Scheduled 10 units Levemir administered per DEC. Pt discharged home accompanied by family at 1230. Discharge education reviewed with patient who verbalized understanding. ?
--- NOTE | 2024-01-05 11:15 | P.EN_ITS ---
Chart Event Note Date Seen: 01/05/24 Chart Event Note: Patient is here for ertapenem. She is doing well. No diarrhea. Pain has resolved. I called the [facility] transplant healthcare consultant, Kenny, , to discuss follow-up. They are making arrangements for outpatient follow-up at the [facility] on January 10 and . We will continue outpatient daily ertapenem through January 11. Continue oral vancomycin for 10 day course and possibly longer.
== END 2024-01-04 12:30 | disposition home or self-care (01) | DRG 391 ==
LOC: ED 12-29 14:45 → MEDSURG 12-29 14:53
PROVIDERS: Family Medicine; Physician Assistant; Admitting Provider Family Medicine; Emergency Provider Family Medicine; PCP Emergency Medicine; Visit Provider Family Medicine
DX: K57.00 Diverticulitis of small intestine with perforation and abscess without bleeding (principal); K76.7 Hepatorenal syndrome; Z94.4 Liver transplant status; Z94.0 Kidney transplant status; F19.20 Other psychoactive substance dependence, uncomplicated; D84.821 Immunodeficiency due to drugs; A04.72 Enterocolitis due to Clostridium difficile, not specified as recurrent; Z86.19 Personal history of other infectious and parasitic diseases; E10.22 Type 1 diabetes mellitus with diabetic chronic kidney disease; N18.9 Chronic kidney disease, unspecified; D63.1 Anemia in chronic kidney disease; Z79.4 Long term (current) use of insulin; Z79.85 Long-term (current) use of injectable non-insulin antidiabetic drugs; E03.9 Hypothyroidism, unspecified; Z22.322 Carrier or suspected carrier of Methicillin resistant Staphylococcus aureus; M81.0 Age-related osteoporosis without current pathological fracture
CPT/HCPCS: 36415; 74176; 74177; 80048; 80053; 80069; 80076; 82803; 82947; 82962; 83605; 83690; 84443; 85025; 86140; 87045; 87046; 87086; 87427; 87493; 94761; 99285; A9270; C9113; J1170; J1335; J1650; J1836; J2270; J2405; J2543; J3480; J7030; J7120; J7507; J7512; Q9967

== ENCOUNTER 2024-01-12 13:00 | Outpatient (RCR) | payer MEDICARE, SELFPAY ==
[2024-01-05] MEDS: ERTAPENEM 1 GM in 0.9 % SODIUM CHLORIDE Mini-bag 100 ML IVPB (12:04)
[2024-01-05 12:05] VITALS: BP 101/62; PULSE 65; RESP 16; TEMP 36.4; O2SAT 99
[2024-01-05] MEDS: 0.9 % SODIUM CHLORIDE 250 ml IV (13:32)
[2024-01-05] MEDS: SODIUM CHLORIDE 0.9 % (FLUSH) 10 ML SYRINGE IVF (13:32)
[2024-01-06] MEDS: 0.9 % SODIUM CHLORIDE 250 ml IV (11:16)
[2024-01-06] MEDS: ERTAPENEM 1 GM in 0.9 % SODIUM CHLORIDE Mini-bag 100 ML IVPB (11:16)
[2024-01-06] MEDS: SODIUM CHLORIDE 0.9 % (FLUSH) 10 ML SYRINGE IVF (11:49)
[2024-01-07 11:21] VITALS: BP 121/84; PULSE 95; RESP 16; TEMP 36.9; O2SAT 96
[2024-01-07] MEDS: ERTAPENEM 1 GM in 0.9 % SODIUM CHLORIDE Mini-bag 100 ML IVPB (12:01)
[2024-01-07] MEDS: 0.9 % SODIUM CHLORIDE 250 ml IV (12:02)
[2024-01-08 09:25] VITALS: BP 131/87; PULSE 95; RESP 18; TEMP 36.7; O2SAT 96
[2024-01-08 10:45] VITALS: BP 134/83; PULSE 86; RESP 16; TEMP 36.7; O2SAT 94
[2024-01-08] MEDS: ERTAPENEM 1 GM in 0.9 % SODIUM CHLORIDE Mini-bag 100 ML IVPB (10:46)
[2024-01-08] MEDS: 0.9 % SODIUM CHLORIDE 250 ml IV (10:47)
[2024-01-08] MEDS: SODIUM CHLORIDE 0.9 % (FLUSH) 10 ML SYRINGE IVF ×2 (10:47→11:43)
[2024-01-09 11:20] VITALS: BP 112/73; PULSE 111; RESP 18; TEMP 36.3; O2SAT 98
[2024-01-09] MEDS: ERTAPENEM 1 GM in 0.9 % SODIUM CHLORIDE 100 ml 100 ML IVPB (11:21)
--- NOTE | 2024-01-10 11:20 | PM.EN ---
Chart Event Note Time Seen by Provider: 11:25 Date Seen: 01/10/24 Chart Event Note: Patient in for antibiotic infusion, noting diarrhea worsened at home this morning. She just picked up a probiotic today. She ambulated in, appears nontoxic and not dehydrated. We have extended her Vancomycin therapy, reviewed s/sx of dehydration that warrant urgent return to the hospital. Patient verbalized understanding.
[2024-01-10] MEDS: ERTAPENEM 1 GM in 0.9 % SODIUM CHLORIDE 100 ml 100 ML IVPB (11:24)
[2024-01-10 11:26] VITALS: BP 151/87; PULSE 117; RESP 18; TEMP 37.1; O2SAT 97
[2024-01-10] MEDS: SODIUM CHLORIDE 0.9 % (FLUSH) 10 ML SYRINGE 5 ML IVF (11:58)
[2024-01-10] MEDS: 0.9 % SODIUM CHLORIDE 250 ml IV (11:59)
[2024-01-10] MEDS: ONDANSETRON 2 MG/ML inj 4 MG IVP (12:00)
[2024-01-10 12:01] VITALS: BP 136/92; PULSE 115; RESP 20; TEMP 37.2; O2SAT 98
[2024-01-11] MEDS: SODIUM CHLORIDE 0.9 % (FLUSH) 10 ML SYRINGE IVF (11:32)
[2024-01-11] MEDS: ERTAPENEM 1 GM in 0.9 % SODIUM CHLORIDE Mini-bag 100 ML IVPB (11:32)
[2024-01-11] MEDS: 0.9 % SODIUM CHLORIDE 250 ml IV (11:33)
[2024-01-12 12:05] VITALS: BP 116/67; PULSE 98; RESP 17; TEMP 37.2; O2SAT 97
== END 2024-07-03 23:59 | disposition home or self-care (01) ==
LOC: CCIC 13:00
PROVIDERS: PCP Emergency Medicine; Referring Provider Emergency Medicine; Visit Provider Clinical Nurse Specialist
DX: K57.20 Diverticulitis of large intestine with perforation and abscess without bleeding (principal)
CPT/HCPCS: 36410; 36589; 76937; 96365; 99211; G0463; C1751; J1335; J2405; J7050

== ENCOUNTER 2024-03-17 16:13 | Outpatient (CLI) | payer MEDICARE, SELFPAY ==
--- OUTSIDE RECORDS SUMMARY | 2024-03-17 16:17 | XMS_ITS | Encounter Summary ---
Author Organization [place] Address [address] [place] [address]. [place] [address] Care Team Providers Care Health Commissioner Name Role Phone Georgette Velez MD Unavailable [phone] Lissa White PA-C Unavailable Eriberto Romano MD Unavailable [phone] William Spain MD Unavailable [phone] Encounter Details Date Type Department Care Team (Late st Contact Info) Description 01/15/2024 MyC Medical Advice [facility]ology [facility] [address] [place] [address] [facility] Social History Tobacco Use Types Packs/Day Years Used Date Smoking Tobacco: Never Smokeless Tobacco: Never Comments:second hand smoke Alcohol Use Standard Drinks/Week Comments Yes 0 (1 standard drink = 0.6 oz pur e alcohol) rare PHQ-2 Answer Date Recorded PHQ-2 Score 1 01/11/2024 Adolescent Education Answer Date Record ed Getting School Help Needed Not on file 06/29 Sex and Gender Information Value Date Recorded Sex Assigned at Not on file Gender Identity Female 01/06/2024 12:46 PM CDT Sexual Orientation Straight 01/06/2024 12 :46 PM CDT documented as of this encounter Plan of Treatment Upcoming Encounters Date Type Department Care Team (Late st Contact Info) Description 04/04/2024 PRE VISIT [facility] [address] 4th [place] [address] Eriberto Romano MD [address] [address] Previsit 04/04/2024 11:00 AM CDT Office Visit [facility] [address] 4th [place] [phone] Kylee Fu MD [address] [place] [address] [address] [place] [address] Eriberto Romano MD [address] [address] 05/04/2024 2:00 PM CDT Virtual Visit [address] [phone] Lissa White PA-C [address] [place] [address] 05/06/2024 2:00 PM CDT Office Visit [address] [phone] Lissa White PA-C [address] [place], [place] [address] 05/10/2024 8:00 AM CDT Office Visit [facility] [address] [phone] Kylee Fu MD [address] [place] [id number] 08/23/2024 10:30 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 Office Visit [facility] Trans[facility] [address] [place] [phone] Georgette Velez MD [address] [place] [address] documented as of this encounter Visit Diagnoses Not on filedocumented in this encounter Care Teams Health Commissioner Relationship Specialty Start Date End Date Georgette Velez MD [address] [place] [address] Assigned Nephrology Provider 08/29/23 01/25/24 Lissa White PA-C [address] [place] [address] Physician Operations Administrative Assistant Endocrinology, Diabetes, and Metabolism 01/05/24 Eriberto Romano MD 420 [facility] 195 [place], [place] [phone] Colon & Rectal 01/18/24 William Spain MD 717 [facility] 353 [facility] [address] [place], [place] [address] Assigned Nephrology Provider 01/26/24 documented as of this encounter
--- OUTSIDE RECORDS SUMMARY | 2024-03-17 16:17 | XMS_ITS | Encounter Summary ---
Author Organization [place] Address [address] [place] [address] Care Team Providers Care Superintendent [employer] Name Role Phone Christopher Lissamaura WRIGHT Unavailable Eriberto Romano MD Unavailable [phone] William Spain MD Unavailable [phone] Encounter Details Date Type Department Care Team (Late st Contact Info) Description 02/08/2024 MyC Medical Advice [facility] Trans[facility] [address] [place] [phone] Briseida Parson, RN Social History Tobacco Use Types Packs/Day Years [...] st Contact Info) Description 04/04/2024 PRE VISIT [facility] [address] [place] [address] Eriberto Romano MD [address] [place] [address] [address] [place] [address] Previsit 04/04/2024 11:00 AM CDT Office Visit [facility] [address] [place] [phone] Kylee Fu MD 6 [facility] [address] [place] [address] Eriberto Romano MD 420 [facility] [address] [place], [place] [address] 05/04/2024 2:00 PM CDT Virtual Visit [address] [phone] Lissa White PA-C 500 [place], [place] [address] 05/06/2024 2:00 PM CDT Office Visit [address] [phone] Lissa White PA-C [address] [place], [place] [address] 05/10/2024 8:00 AM CDT Office Visit [facility] [address] [phone] Kylee Fu MD [address] [place] [address] [address] [place], [place] [phone] 08/23/2024 10:30 AM 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 X RAY Office Visit [facility] [address] [place] [phone] Georgette Velez MD [address] [place] [address] documented as of this encounter Visit Diagnoses Not on filedocumented in this encounter Care Teams Superintendent [employer] Relationship Specialty Start Date End Date Lissa White PA-C [address] [place] [address] Physician Ecological Economist Endocrinology, Diabetes, and Metabolism 01/05/24 Eriberto Romano MD 420 [facility] 195 [place] [address] Colon & Rectal 01/18/24 William Spain MD 717 [facility] 353 [facility] [address] [place] [address] Assigned Nephrology Provider 01/26/24 documented as of this encounter
--- OUTSIDE RECORDS SUMMARY | 2024-03-17 16:17 | XMS_ITS | Referral Summary ---
Author Organization [facility] Address [address] [place] [id number] Care Team Providers Care Ux Information Architect Name Role Phone Lissa White PA-C Unavailable Eriberto Romano MD Unavailable William Spain MD Unavailable Encounters Date Type Department Care Team Description 03/17/2024 MyC Medical Advice [facility] [address] [place] [phone] Miranda Diaz LICSW 02/08/2024 MyC Medical Advice [facility] Transplant [address] [phone] Briseida Parson, RUIZ 01/25/2024 Telephone [facility] Transplant [address] [phone] Scarlet Cruz, RUIZ 01/25/2024 Refill [facility] Services - Medical Specialties Service Line [facility] [place] [address] Georgette Velez MD 01/20/2024 MyC Medical Advice [facility] Gastroenterology [facility] [address] 4th [place] [address] Vinicius Vick 01/19/2024 Telephone [facility] Transplant [address] [phone] Gianna Varela LPN Medication Refill 01/15/2024 MyC Medical Advice [facility] [address] [place] [phone] Micaradha Vinicius 01/15/2024 MyC Medical Advice [facility] Endocrinology [address] [place] [phone] [facility] 01/13/[address] [phone] Lissa White PA-C 01/13/2024 MyC Medical Advice [facility] Endocrinology [address] [place] [phone] [facility] 01/12/2024 10:00 AM CDT Lab [facility] Lab [address] [place] [address] William Spain MD Aftercare following organ transplant; Encounter for long-term current use of medication; Kidney replaced by transplant; Liver replaced by transplant (H); Lipid screening 01/12/2024 Travel 01/12/2024 9:30 AM CDT Office Visit [facility] Transplant [address] [phone] William Spain MD Aftercare following organ transplant (Primary Dx); Kidney replaced by transplant; CKD (chronic kidney disease) stage 2, GFR 60-89 ml/min; Immunosuppressed status (H24); Liver replaced by transplant (H); HTN, kidney transplant related; Sigmoid diverticulitis; Recurrent UTI (urinary tract infection) 01/11/2024 Telephone [facility] Transplant [address] [phone] Gianna Varela LPN Transplant 01/11/2024 Telephone [facility] Transplant [address] [phone] Daniela Majano RN 01/11/2024 MyC Medical Advice [address] [place] [phone] Pau Paul, ACID PURIFICATION EQUIPMENT OPERATOR 01/11/2024 Travel 01/11/2024 10:00 AM CDT Virtual Visit [facility]atology [facility] [address] [phone] Kylee Fu MD Liver replaced by transplant (H) 01/05/[address] [phone] Lissa White PA-C Appointment; Call Back 01/04/2024 MyC Medical Advice [facility] [address] [place] [phone] Scarlet Cruz RN 01/04/2024 Telephone [facility] Rectal Surgery [facility] [address] [place] [address] Unknown, Provider Referral (Next available surgeon) 01/04/2024 Telephone [facility] [address] [place] [phone] Scarlet Cruz RN 01/04/2024 Telephone [facility] [address] [phone] None Referral (Perforated ) 01/04/2024 Orders Only [facility] [address] [place] [phone] Daniela Majano RN Perforation bowel (H) (Primary Dx) 01/01/2024 MyC Medical Advice [facility] Endocrinology [facility] [address] [place] [phone] Arelis Humphrey CMA 01/01/2024 Telephone [facility] [address] [place] [phone] Hafsa Tripp RN HOSP D/C 01/01/2024 Telephone [facility] [address] [place] [address] Scarlet Cruz RN Call Back 12/31/2023 Documentation Only [facility] - General Medicine & Pediatrics [facility] [place] [address] Jennifer Serra MD 12/31/2023 Telephone [facility] [address] [place] [phone] Scarlet Cruz RN Patient currently in hospital with infection 12/29/2023 Telephone [facility] [address] [place] [phone] Scarlet Cruz RN from Last 3 Months Allergies No known active allergies Medications Medication Sig Dispensed Refills Start Date End Date Status ALENDRONATE SODIUM 70 MG OR TABSIndications:Oste oporosis 1 TABLET WEEKLY ON AN EMPTY STOMACH 4 4 07/06/2009 Active Additional Information Patient not taking.Reported on 05/26/2023 LEVOXYL 75 MCG OR TABSIndications:Unsp ecified hypothyroidism ONE DAILY IN THE MORNING 90 0 10/22/2009 Active insulin aspart (NOVOLOG PEN) 100 UNIT/ML pen 8 Units 3 times daily (with meals) plus sliding scale 12/29/2022 Active insulin degludec (TRESIBA) 100 UNIT/ML pen Inject 20 Units Subcutaneous every morning 12/29/2022 Active Semaglutide, 2 MG/DOSE, (OZEMPIC, 2 MG/DOSE,) 8 MG/3ML pen Inject 2 mg Subcutaneous every 7 days 12/29/2022 Active carvedilol (COREG) 12.5 MG tablet Take 12.5 mg by mouth 2 times daily 02/17/2023 Active amLODIPine (NORVASC) 5 MG tablet Take 1 tablet by mouth daily 03/30/2023 Active traZODone (DESYREL) 50 MG tablet Take 1 tablet by mouth nightly as needed for sleep 04/06/2023 Active mycophenolate (GENERIC EQUIVALENT) 250 MG capsuleIndications:L iver transplanted (H) Take 2 capsules (500 mg) by mouth 2 times daily 120 capsule 11 06/18/2023 Active acyclovir (ZOVIRAX) 400 MG tabletIndications:Oscar dney replaced by transplant ONE TABLET 3 TIMES DAILY x 5 days 30 tablet 5 08/21/2023 Active predniSONE (DELTASONE) 5 MG tabletIndications:Oscar dney replaced by transplant,Liver replaced by transplant (H) Take 1 tablet (5 mg) by mouth daily 30 tablet 11 09/10/2023 Active vancomycin (VANCOCIN) 125 MG capsule Take 1 capsule (125 mg) by mouth 4 times daily 01/12/2024 Active tacrolimus (GENERIC EQUIVALENT) 1 MG capsuleIndications:Michael iver replaced by transplant (H) Take 2 capsules (2 mg) by mouth every morning AND 1 capsule (1 mg) every evening. 270 capsule 3 01/19/2024 Active atorvastatin (LIPITOR) 10 MG tabletIndications:Oscar dney replaced by transplant Take 1 tablet (10 mg) by mouth daily 90 tablet 1 01/25/2024 Active Active Problems Problem Noted Date Diagnosed Date Kidney replaced by transplant 01/24/2024 Aftercare following organ transplant 01/24/2024 CKD (chronic kidney disease) stage 2, GFR 60-89 ml/min 01/24/2024 Immunosuppressed status (H24) 01/24/2024 Liver replaced by transplant 01/24/2024 HTN, kidney transplant related 01/24/2024 Sigmoid diverticulitis 01/24/2024 Recurrent UTI (urinary tract infection) 01/24/20 24 Diabetes mellitus, type 2 01/24/2024 CARDIOVASCULAR SCREENING; LDL GOAL LESS THAN 160 08/04/2010 Genital herpes Overview: Problem list name updated by automated process. Provider to review LUMB/LUMBOSAC DISC DISEASE Overview: L and C spine HEPATITIS C Hypothyroidism Overview: Problem list name updated by automated process. Provider to review Immunizations Name Administration Dates Next Due Influenza (IIV3) PF 08/04/2006 Social History Tobacco Use Types Packs/Day Years Used Date Smoking Tobacco: Never Smokeless Tobacco: Never Tobacco Cessation:Counseling Given: Not Answered Comments:second hand smoke Alcohol Use Standard Drinks/Week [...] Orientation Straight 01/06/2024 12 :46 PM CDT Last Filed Vital Signs Vital Sign Reading Time Taken Comments Blood Pressure 104/72 01/12/2024 9:[address] Pulse 99 01/12/2024 9:22 AM CDT Temperature 36.6 ??C (97.9 ??F) 01/12/2024 9:22 AM CD T Respiratory Rate 18 05/26/2023 8:55 AM CDT Oxygen Saturation 98% 01/12/2024 9:22 AM CDT Inhaled Oxygen Concentration - - Weight 62 kg (136 lb 11.2 oz) 01/12/2024 9:22 AM CDT Height 160 cm (5' 3) 01/11/2024 9:47 AM CDT Body Mass Index 24.22 01/11/2024 9:47 AM CDT Plan of Treatment Upcoming Encounters Date Type Department Care Team (Late st Contact Info) Description 04/04/2024 PRE VISIT [facility] [address] [phone] Eriberto Romano MD [address] [place] [phone] Previsit 04/04/2024 11:00 AM CDT Office Visit [facility] [address] [phone] Kylee Fu MD [address] [facility] [address] [place], [place] [phone] Eriberto Romano MD [address] [address] 05/04/2024 2:00 PM CDT Virtual Visit [address] [phone] Lissa White PA-C [address] [place] [address] 05/06/2024 2:00 PM CDT Office Visit [address] [phone] Lissa White PA-C [address] [place] [address] 05/10/2024 8:00 AM CDT Office Visit [facility] [address] [phone] Kylee Fu MD [address] [place] [address] 08/23/2024 10:30 AM FIRE APPARATUS SPRINKLER INSPECTOR Office Visit [facility] Transplant [address] [phone] Georgette Velez MD [address] [place] [address] Procedures Procedure Name Priority Date/Time Associated Diagnosis Comments BK VIRUS QUANTITATIVE, PCR Routine 01/12/2024 11:14 AM CDT Kidney replaced by transplant DAVIS KELLY VIRUS QUANTITATIVE PCR, PLASMA Routine 01/12/2024 10:19 AM CDT Kidney replaced by transplant LIPID PROFILE Routine 01/12/2024 10:19 AM CDT Aftercare following organ transplant Encounter for long-term current use of medication Kidney replaced by transplant Liver replaced by transplant (H) Lipid screening TACROLIMUS BY TANDEM MASS SPECTROMETRY Routine 01/12/2024 10:19 AM CDT Aftercare following organ transplant Encounter for long-term current use of medication Kidney replaced by transplant Liver replaced by transplant (H) HEPATIC FUNCTION PANEL Routine 01/12/2024 10:19 AM CDT Aftercare following organ transplant Encounter for long-term current use of medication Kidney replaced by transplant Liver replaced by transplant (H) CBC WITH PLATELETS Routine 01/12/2024 10 :19 AM CDT Aftercare following organ transplant Encounter for long-term current use of medication Kidney replaced by transplant Liver replaced by transplant (H) BASIC METABOLIC PANEL Routine 01/12/2024 10:19 AM CDT Aftercare following organ transplant Encounter for long-term current use of medication Kidney replaced by transplant Liver replaced by transplant (H) LAB RESULT - HIM SCAN 01/01/2024 12:00 AM CDT LAB RESULT - HIM SCAN 01/01/2024 12:00 AM CDT LAB RESULT - HIM SCAN 12/28/2023 12:00 AM CDT ROUTINE UA WITH MICROSCOPIC REFLEX TO CULTURE Routine 08/21/2023 10:15 AM FIRE APPARATUS SPRINKLER INSPECTOR Dysuria HCL TSH Routine 11/27/2008 10:50 AM FIRE APPARATUS SPRINKLER INSPECTOR Unspecified Hypothyroidism COLONOSCOPY Routine 12/18/2007 12:40 PM CDT HC MAMMOGRAM, SCREENING BILATERAL Routine 10/12/2007 Screening Mamm-Mailg Neopl Nec HC DEXA BONE DENSITY, >=1 SITE, AXIAL SKELETON Routine 10/12/2007 Routine Medical Exam from Last 3 Months or Most Recently Relevant to Health Maintenance Results * BK Virus Quantitative, PCR (01/12/2024 11:14 AM CDT) BK Virus DNA IU/mL Not Detected Not Detected IU/mL 01/13/2024 11:46 AM CDT [facility] BK Virus Specimen Type Blood 01/13/2024 11:46 AM CDT [facility] Blood BLOOD SPECIMEN / Unknown Venipuncture-No Charge / Unknown 01/12/2024 11:14 AM CDT 01/12/2024 11:14 AM CDT Narrative [facility] - 01/13/2024 11:46 AM CDT The kendrick?? BKV assay is an FDA-approved, in vitro nucleic acid amplification test for the quantification of BK virus (BKV) DNA in human EDTA plasma and urine stabilized in kendrick?? PCR Media, using the Jovanny kendrick?? instrument system for automated viral nucleic acid extraction, purification, amplification, and detection of the viral nucleic acid target. This dual-target polymerase chain reaction (PCR) assay amplifies 2 highly conserved target regions within the BKV genome (small t-antigen and VP2 regions) to detect and quantify, but not discriminate BKV subtypes I, II, III and IV. The test is intended for use as an aid in the management of BKV in transplant patients. The assay is calibrated to the World Health Organization International Standard for BKV DNA. Titer results are reported in IU/mL.?? Georgette Velez MD LAB - MICRO GENERAL ORDERABLES [facility] Inf. Diseases Diag. Lab [address] [facility], [address] [place] [address] * Davis Kelly Virus Quantitative PCR, Plasma (01/12/2024 10:19 AM CDT) EBV DNA IU/mL Not Detected Not Detected IU/mL 01/13/2024 2:20 PM CDT [facility] Blood VENOUS STRUCTURE / Unknown Venipuncture / Unknown 01/12/2024 10:19 AM CDT 01/12/2024 10:30 AM CDT Narrative [facility] - 01/13/2024 2:20 PM CDT The kendrick?? EBV assay is an FDA-approved, in vitro nucleic acid amplification test for the quantification of Davis-Kelly virus (EBV) in human EDTA plasma on the Jovanny kendrick?? instrument system for automated viral nucleic acid extraction, purification, amplification, and detection of the viral nucleic acid target. Selective amplification of target nucleic acid from the sample is achieved using a dual target virus-specific approach from highly conserved regions of the EBV located in the EBV EBNA-1 gene and the EBV BMRF gene.?? This test is intended for use as an aid in the management of EBV in transplant patients. In patients undergoing monitoring of EBV, serial DNA measurements can be used to indicate the need for potential treatment changes and to assess response to treatment. The assay is calibrated to the World Health Organization International Standard for EBV DNA. Titer results are reported in International Units (IU)/mL. Georgette Velez MD LAB - MICRO GENERAL ORDERABLES [facility] Inf. Diseases Diag. Lab [address] [facility], [address] [place] [address] * (ABNORMAL) Tacrolimus by Tandem Mass Spectrometry (01/12/2024 10:19 AM CDT) Tacrolimus by Tandem Mass Spectrometry 4.9(L) 5.0 - 15.0 ug/L 01/12/2024 6:22 PM CDT SPECIAL DRUG/[facility] Comment: Tacrolimus Reference Range (ug/L): Kidney Transplant: Pediatric 0-3 months post transplant: 10-12 3-6 months post transplant: 8-10 6-12 months post transplant: 6-8 >12 months post transplant: 4-7 Adult 0-6 months post transplant: 8-10 6-12 months post transplant: 6-8 >12 months post transplant: 4-6 >5 years post transplant: 3-5 Heart Transplant: Pediatric 0-12 months post transplant: 10-15 >12 months post transplant: 5-10 Adult 0-3 months post transplant: 10-15 3-6 months post transplant: 8-12 6-12 months post transplant: 6-12 >12 months post transplant: 6-10 Lung Transplant: 0-12 months post transplant: 10-15 >12 months post transplant: 8-12 Liver Transplant: Pediatric 0-3 months post transplant: 10-15 3-6 months post transplant: 8-10 6 months-5 years post transplant: 6-8 >5 years post transplant: 1-3 Adult 0-3 months post transplant: 10-12 3-6 months post transplant: 8-10 >6 months post transplant: 6-8 Pancreas Transplant: 0-6 months post transplant: 8-10 >6 months post transplant: 5-8 Tacrolimus Last Dose Date 01/11/2024 01/12/2024 6:22 PM CDT [facility] Tacrolimus Last Dose Time 9:30 PM 01/12/2024 6:22 PM CDT [facility] Blood STRUCTURE OF RIGHT UPPER LIMB / Unknown Venipuncture / Unknown 01/12/2024 10:19 AM CDT 01/12/2024 10:19 AM CDT Narrative [facility] - 01/12/2024 6:22 PM CDT This test was developed and its performance characteristics determined by the [facility], ??Special Chemistry Laboratory. It has not been cleared or approved by the FDA. The laboratory is regulated under CLIA as qualified to perform high-complexity testing. This test is used for clinical purposes. It should not be regarded as investigational or for research. Kylee Fu MD LAB - BLOO D ORDERABLES [facility] [address] [facility], Room [address] [place] [phone] * (ABNORMAL) Lipid Profile (01/12/2024 10:19 AM CDT) Cholesterol 208(H) <200 mg/dL 01/12/2024 10:47 AM CDT [facility] - CORE LAB Triglycerides 191(H) <150 mg/dL 01/12/2024 10:47 AM CDT [facility]ORE LAB Direct Measure HDL 40(L) >=50 mg/dL 01/12/2024 10:47 AM T [facility] LDL Cholesterol Calculated 130(H) <=100 mg/dL 01/12/2024 10:47 AM CDT [facility]ORE [facility] Non HDL Cholesterol 168(H) <130 mg/dL 01/12/2024 10:47 AM T [facility]ORE [facility] Patient Fasting > 8hrs? No 01/12/2024 10:47 AM T [facility] - [facility]ORE LAB Blood STRUCTURE OF RIGHT UPPER LIMB / Unknown Venipuncture / Unknown 01/12/2024 10:19 AM CDT 01/12/2024 10:19 AM CDT Narrative [facility]ORE [facility] - 01/12/2024 10:47 AM CDT Cholesterol Desirable: ??<200 mg/dL Triglycerides Normal: ??Less than 150 mg/dL Borderline High: ??150-199 mg/dL High: ??200-499 mg/dL Very High: ??Greater than or equal to 500 mg/dL Direct Measure HDL Female: ??Greater than or equal to 50 mg/dL Male: ??Greater than or equal to 40 mg/dL LDL Cholesterol Desirable: ??<100mg/dL Above Desirable: ??100-129 mg/dL Borderline High: ??130-159 mg/dL High: ??160-189 mg/dL Very High: ??>= 190 mg/dL Non HDL Cholesterol Desirable: ??130 mg/dL Above Desirable: ??130-159 mg/dL Borderline High: ??160-189 mg/dL High: ??190-219 mg/dL Very High: ??Greater than or equal to 220 mg/dL Kylee Fu MD LAB - BLOO D ORDERABLES [facility] - CORE LAB [facility] [address] [place] [address] 1st [place] [address] * Hepatic panel (01/12/2024 10:19 AM CDT) Pathologist [facility] Protein Total 6.8 6.4 - 8.3 g/dL 01/12/2024 10:47 AM CDT [facility]ORE [facility] Albumin 4.1 3.5 - 5.2 g/dL 01/12/2024 10:47 AM CDT [facility] Bilirubin Total 0.2 <=1.2 mg/dL 01/12/2024 10:47 AM CDT [facility] Alkaline Phosphatase 66 40 - 150 U/L 01/12/2024 10:47 AM CDT [facility] Comment:Reference intervals for this test were updated on 08/18/2023 to more accurately reflect our healthy population. There may be differences in the flagging of prior results with similar values performed with this method. Interpretation of those prior results can be made in the context of the updated reference intervals. AST 14 0 - 45 U/L 01/12/2024 10:47 AM CDT [facility] Comment:Reference intervals for this test were updated on 03/16/2023 to more accurately reflect our healthy population. There may be differences in the flagging of prior results with similar values performed with this method. Interpretation of those prior results can be made in the context of the updated reference intervals. ALT 13 0 - 50 U/L 01/12/2024 10:47 AM CDT [facility] Comment:Reference intervals for this test were updated on 03/16/2023 to more accurately reflect our healthy population. There may be differences in the flagging of prior results with similar values performed with this method. Interpretation of those prior results can be made in the context of the updated reference intervals. Bilirubin Direct <0.20 0.00 - 0.30 mg/dL 01/12/2024 10:47 AM CDT [facility] Blood STRUCTURE OF RIGHT UPPER LIMB / Unknown Venipuncture / Unknown 01/12/2024 10:19 AM CDT 01/12/2024 10:19 AM CDT Kylee Fu MD LAB - BLOO D ORDERABLES [facility] [place] [address] [place] [address] 1st [place] [address] * (ABNORMAL) Basic metabolic panel (01/12/2024 10:19 AM CDT) [facility] Sodium 142 135 - 145 mmol/L 01/12/2024 10:47 AM CDT [facility] Comment:Reference intervals for this test were updated on 06/30/2023 to more accurately reflect our healthy population. There may be differences in the flagging of prior results with similar values performed with this method. Interpretation of those prior results can be made in the context of the updated reference intervals. Potassium 3.6 3.4 - 5.3 mmol/L 01/12/2024 10:47 AM CDT [facility] Chloride 107 98 - 107 mmol/L 01/12/2024 10:47 AM CDT [facility] Carbon Dioxide (CO2) 23 22 - 29 mmol/L 01/12/2024 10:47 AM CDT [facility] Anion Gap 12 7 - 15 mmol/L 01/12/2024 10:47 AM CDT [facility] Urea Nitrogen 13.3 8.0 - 23.0 mg/dL 01/12/2024 10:47 AM CDT [facility] Creatinine 1.22(H) 0.51 - 0.95 mg/dL 01/12/2024 10:47 AM CDT [facility] GFR Estimate 47(L) >60 mL/min/1. 73m2 01/12/2024 10:47 AM CDT [facility] Calcium 9.2 8.8 - 10.2 mg/dL 01/12/2024 10:47 AM CDT [facility] Glucose 121(H) 70 - 99 mg/dL 01/12/2024 10:47 AM CDT [facility] Blood STRUCTURE OF RIGHT UPPER LIMB / Unknown Venipuncture / Unknown 01/12/2024 10:19 AM CDT 01/12/2024 10:19 AM CDT Kylee Fu MD LAB - BLOO D ORDERABLES [facility] [address] [facility] 1st [place] [address] * (ABNORMAL) CBC with platelets (01/12/2024 10:19 AM CDT) WBC Count 6.1 4.0 - 11.0 10e3/uL 01/12/2024 10:23 AM CDT [facility] RBC Count 4.77 3.80 - 5.20 10e6/uL 01/12/2024 10:23 AM CDT [facility] Hemoglobin 12.3 11.7 - 15.7 g/dL 01/12/2024 10:23 AM CDT [facility] Hematocrit 38.6 35.0 - 47.0 % 01/12/2024 10:23 AM CDT [facility] MCV 81 78 - 100 fL 01/12/2024 10:23 AM CDT [facility] MCH 25.8(L) 26.5 - 33.0 pg 01/12/2024 10:23 AM CDT [facility] MCHC 31.9 31.5 - 36.5 g/dL 01/12/2024 10:23 AM CDT [facility] RDW 14.3 10.0 - 15.0 % 01/12/2024 10:23 AM CDT [facility] Platelet Count 187 150 - 450 10e3/uL 01/12/2024 10:23 AM CDT [facility] - [facility] [place] [facility] Blood STRUCTURE OF RIGHT UPPER LIMB / Unknown Venipuncture / Unknown 01/12/2024 10:19 AM CDT 01/12/2024 10:19 AM CDT Kylee Fu MD LAB - BLOO D ORDERABLES [facility] [address] [place] [address] 1st [place] [address] * Lab Result - HIM Scan (01/01/2024 12:00 AM CDT) Only the most recent of3 resultswithin the time period is included. 01/01/2024 Provider Outside NON-BEAKER LAB TE STING * (ABNORMAL) UA with Microscopic reflex to Culture (08/21/2023 10:15 AM FIRE APPARATUS SPRINKLER INSPECTOR) Color Urine Light Yellow Colorless, Straw, Light Yellow, Yellow 08/21/2023 10:35 AM FIRE APPARATUS SPRINKLER INSPECTOR [facility] Appearance Urine Clear Clear 08/21/20 10:35 AM FIRE APPARATUS SPRINKLER INSPECTOR [facility] LABORATORY - CORE LAB Glucose Urine Negative Negative mg/dL 08/21/2023 10:35 AM FIRE APPARATUS SPRINKLER INSPECTOR [facility] - [facility] [place] [place] [facility] Bilirubin Urine Negative Negative 10:35 AM FIRE APPARATUS SPRINKLER INSPECTOR [facility] - [facility] [place] [place] [facility] Ketones Urine Negative Negative mg/dL 08/21/2023 10:35 AM [facility] - CORE LAB Specific Tatamy Urine 1.013 1.003 - 1.035 08/21/2023 10:35 AM [facility] - CORE LAB Blood Urine Negative Negative 08/21/2023 10:35 AM [facility] - CORE LAB pH Urine 5.5 5.0 - 7.0 08/21/2023 10:35 AM [facility] - [facility] LAB Protein Albumin Urine Negative Negative mg/dL 08/21/2023 10:35 AM [facility] - [facility] LAB Urobilinogen Urine Normal Normal, 2.0 mg/dL 08/21/2023 10:35 AM [facility] - [facility] LAB Nitrite Urine Negative Negative 08/21/2023 10:35 AM [facility] - [facility] [place] [place] [facility] Leukocyte Esterase Urine Negative Negative 08/21/2023 10:35 AM [facility] - CORE LAB Mucus Urine Present(A) None Seen /LPF 08/21/2023 10:35 AM [facility] - [facility]ORE LAB RBC Urine 1 <=2 /HPF 08/21/2023 10:35 AM [facility] - [facility] [place] [place] [facility] WBC Urine 2 <=5 /HPF 08/21/2023 10:35 AM [facility] - CORE LAB Squamous Epithelials Urine 4(H) <=1 /HPF 08/21/2023 10:35 AM [facility] - CORE LAB Urine URINE SPECIMEN OBTAINED BY CLEAN CATCH PROCEDURE / Unknown Non-blood Collection / Unknown 08/21/2023 10:15 AM FIRE APPARATUS SPRINKLER INSPECTOR 08/21/2023 10:21 AM FIRE APPARATUS SPRINKLER INSPECTOR Narrative [facility] - CORE LAB - 08/21/2023 10:35 AM FIRE APPARATUS SPRINKLER INSPECTOR Urine Culture not indicated Georgette Velez MD LAB - URINE ORDERABL ES [facility] - CORE LAB [facility] [place] [address] [facility] 1st [place] [address] * TSH- (11/27/2008 10:50 AM FIRE APPARATUS SPRINKLER INSPECTOR) TSH 0.43 0.4 - 5.0 mU/L [facility] 11/27/2008 10:5 0 AM FIRE APPARATUS SPRINKLER INSPECTOR 11/27/2008 10:55 AM FIRE APPARATUS SPRINKLER INSPECTOR Edgar Jack MD LABORATORY [facility] * COLONOSCOPY (12/18/2007 12:40 PM CDT) COLONOSCOPY [facility] End[facility] Department ___ Patient Name: Catarina De ?Gender: F ? Procedure Date: 12/18/2007 12:40 PM ? Date of : 1950 ?Age: 57 ? Admit Type: Outpatient ?Room: 6 ? Note Status: Finalized ? Attending MD: Aidan Clark MD ? Pause For The Cause: Pause for the cause ___ Procedure: ? Colonoscopy Indications: ? Average risk screening for colorectal malignant neoplasm Providers: ? Aidan Clark MD, Shadia Currie RN Referring MD: ?Edgar Jack MD Medicines: ? Atropine IV 0.4 mgs, Fentanyl IV 200 mcgs, Versed IV 2 ? mgs Complications: ? No immediate complications ___ Procedure: ? - Prior to the procedure, a History and Physical was ? performed, and patient medication allergies were ? reviewed. The patient is competent. The risks and ? benefits of the procedure and the sedation options and ? risks were discussed with the patient. All questions ? were answered and informed consent was obtained. Patient ? identification and proposed procedure were verified by ? the physician in the endoscopy suite. Mental Status ? Examination: alert and oriented. Airway Examination: ? normal oropharyngeal airway and neck mobility. ? Respiratory Examination: clear to auscultation. CV ? Examination: normal. Prophylactic Antibiotics: The ? patient does not require prophylactic antibiotics. Prior ? Anticoagulants: The patient has taken no previous ? anticoagulant or antiplatelet agents. ASA Grade ? Assessment: II - A patient with mild systemic disease. ? After reviewing the risks and benefits, the patient was ? deemed in satisfactory condition to undergo the ? procedure. The anesthesia plan was to use moderate ? sedation / analgesia (conscious sedation). Immediately ? prior to administration of medications, the patient was ? re-assessed for adequacy to receive sedatives. The heart ? rate, respiratory rate, oxygen saturations, blood ? pressure, adequacy of pulmonary ventilation, and ? response to care were monitored throughout the ? procedure. The physical status of the patient was ? re-assessed after the procedure. ? After obtaining informed consent, the colonoscope was ? passed under direct vision. Throughout the procedure, ? the patient's blood pressure, pulse, and oxygen ? saturations were monitored continuously. The ? [id number] oscope was introduced through the ? anus and advanced to the cecum, identified by ? appendiceal orifice & IC valve. The colonoscopy was ? performed without difficulty. The patient tolerated the ? procedure well. The quality of the prep was good. The ? prep was adequate to identify polyps. Scope insertion ? time was 10 minutes. Scope withdrawal time was 8 ? minutes. The total duration of the procedure was 18 ? minutes. ? Findings: ? The perianal and digital rectal examinations were normal. Pertinent ? negatives include normal sphincter tone, no palpable rectal lesions and ? no anal lesion or abnormality was detected. A pedunculated polyp was ? found in the proximal sigmoid colon. The polyp was 7 mm in size. The ? polyp was removed with a hot snare. Resection and retrieval were ? complete. Otherwise normal colon from the anus (including rectal ? retroflexion) to the base of the cecum. ? Impression: ?- A 7 mm polyp in the proximal sigmoid colon. Resected ? and retrieved. ? - The exam was otherwise normal to the cecum. Recommendation: ?- Discharge patient to home (ambulatory). ? - Avoid all anticoagulants for 5 more days. ? - Await pathology results. ? - Call my office in 5 days for the report. ? - High bulk, high fluid diet. ? - Follow up with as planned and get annual ? FOBT (fecal occult blood test). ? - Repeat colonoscopy for screening purposes in 3 years ? or PRN sooner if this polyp is an adenoma (ONE year if ? serrated) or 10 years if hyperplastic. ? - The findings and recommendations were discussed with ? the patient. ? Aidan Clark M.D. Aidan Clark MD Signed Date: 12/18/2007 1:32 PM Number of Addenda: 0 I was physically present for the entire viewing portion of the exam. Note initiated on 12/18/2007 12:41 PM RADIOLOGY RESULTS COLONOSCOPY RADIOLOG Y RESULTS 12/18/2007 12:4 0 PM CDT Edgar Jack MD PROCEDURES RADIOLOGY RESULTS * DEXA,BONE DENSITY,AXIAL SKELETON (10/12/2007) Anatomical Region Laterality Modality Bone Mineral Den sity Impressions 10/12/2007 BONE [address] [address] 10/12/2007 Patient: ??Catarina De Chart: [id number] : ??1950 Age: ??56 year old Sex: ??female Referring provider: ??EDGAR JACK Procedure: ??Bone density scanning was performed using DEXA technology performed on a Revstr scanner. ??Reporting is completed in the form of a T-score. ?? The T-score represents the standard deviation from peak bone mass based on a young healthy adult. [employer] Hrms Developer performing scan: ??Gianna Lawson Reference T-Scores: ? Normal ?Greater than -1.0 ? Osteopenia ?-1.0 to -2.5 ? Osteoporosis ?Less than -2.5 NOF guidelines recommend treatment for patients with a T-score of -1.5 or less with risk factors or -2.0 or less without risk factors. Risk Factors: ??Post-menopausal, Fracture of the right hand Current Treatment: ??None listed Findings: ? Lumbar Spine (L1-L4): ??T-score -2.2 ? Left Femoral Neck: ??T-score -0.1 ? Right Femoral Neck: ??T-score -0.3 ? Proximal Forearm: ??T-score ??-1.7 ? Distal Forearm: ??T-score ??-2.4 Impression: Significant osteopenia Consider medication intervention with a bisphosphonate, if clinically appropriate Suggest verification of adequate calcium and vitamin D intake Suggest short term follow-up scan within 2 years Dexa scan read and electronically signed by Torey Faria M.D. Electronically filed by Michelle Crowe ??10/14/2007 ??9:18 AM Edgar Jack MD SPECIAL IMAGING ROBERTA DIES * MAMMOGRAM, SCREENING (10/12/2007) MAMMOGRAM Anatomical Region Laterality Modality Mammography Impressions 10/12/2007 RADIOLOGIST'S INTERPRETATION: Breast parenchyma: ??heterogeneously dense IMAGING IMPRESSION: (CATEGORY-1) NEGATIVE This study was evaluated with the assistance of Computer-Aided Detection. Radiologist: Kenrick Thorpe M.D. ? OCT 14 2007 Electronically filed by Gwendolyn Myesr ??10/15/2007 ??10:51 AM Edgar Jack MD SPECIAL IMAGING ROBERTA DIES from Last 3 Months or Most Recently Relevant to Health Maintenance Care Teams Ux Information Architect Relationship Specialty Start Date End Date Lissa White PA-C [address] [place], [place] [phone] Physician Chief Contract Officer Endocrinology, Diabetes, and Metabolism 01/05/24 Eriberto Romano MD 420 [facility] 195 [place], [place] [address] Colon & Rectal 01/18/24 William Spain MD 717 [facility] 353 [facility] [address] [place], [place] [phone] Assigned Nephrology Provider 01/26/24
--- OUTSIDE RECORDS SUMMARY | 2024-03-17 16:17 | XMS_ITS | Encounter Summary ---
Author Organization [place] Address [address] [place] [address]. [place] [address] Care Team Providers Care Art Sales Consultant Name Role Phone Georgette Velez MD Unavailable [phone] Lissa White PA-C Unavailable Encounter Details Date Type Department Care Team (Late st Contact Info) Description 01/12/2024 10:00 AM CDT Lab [facility] Lab [address] 1st [place] [address] William Spain MD 717 [facility] EM[facility]PART[facility] 353 [facility] [address] [place] [address] Aftercare following organ transplant; Encounter for long-term current use of medication; Kidney replaced by transplant; Liver replaced by transplant (H); Lipid screening Social History Tobacco Use Types Packs/Day Years [...] st Contact Info) Description 04/04/2024 PRE VISIT [facility] Colon and Rectal Surgery Clinic [address] [phone] Eriberto Romano MD [address] [place] [phone] Previsit 04/04/2024 11:00 AM CDT Office Visit [facility] Colon and Rectal Surgery Clinic [address] [phone] Kylee Fu MD [address] [place] [phone] Eriberto Romano MD [address] [place] [address] 05/04/2024 2:00 PM CDT Virtual Visit [address] [phone] Lissa White PA-Devan [address] [place] [address] 05/06/2024 2:00 PM CDT Office Visit [address] [phone] Lissa White PA-Devan [address] [place] [address] 05/10/2024 8:00 AM CDT Office Visit [facility] Hepatology Clinic [address] [phone] Kylee Fu MD [address] [place] [address] 08/23/2024 10:30 AM SENIOR SHIPPING CLERK Office Visit [facility] Transplant Clinic 909 [place] [phone] Georgette Velez MD [address] [place] [address] documented as of this encounter Procedures Procedure Name Priority Date/Time Associated Diagnosis Comments BK VIRUS QUANTITATIVE, PCR Routine 01/12/2024 11:14 AM CDT Kidney replaced by transplant ANIL URRUTIA VIRUS QUANTITATIVE PCR, PLASMA Routine 01/12/2024 10:19 AM CDT Kidney replaced by transplant TACROLIMUS BY TANDEM MASS SPECTROMETRY Routine 01/12/2024 10:19 AM CDT Aftercare following organ transplant Encounter for long-term current use of medication Kidney replaced by transplant Liver replaced by transplant (H) LIPID PROFILE Routine 01/12/2024 10:19 AM CDT Aftercare following organ transplant Encounter for long-term current use of medication Kidney replaced by transplant Liver replaced by transplant (H) Lipid screening HEPATIC FUNCTION PANEL Routine 01/12/2024 10:19 AM [...] by transplant Liver replaced by transplant (H) documented in this encounter Results * BK Virus Quantitative, PCR (01/12/2024 [...] - MICRO GENERAL ORDERABLES [facility] Inf. Diseases Diag. Lab 500 [facility], [address] [place] [phone] * Anil Urrutia Virus Quantitative PCR, Plasma (01/12/2024 10:19 AM [...] acid amplification test for the quantification of Anil-Urrutia virus (EBV) in human EDTA plasma on [...] - MICRO GENERAL ORDERABLES [facility] Inf. Diseases Diag. Lab 500 [facility], [address] [place] [phone] * (ABNORMAL) Lipid Profile (01/12/2024 10:19 AM CDT) Cholesterol 208(H) <200 mg/dL 01/12/2024 10:47 AM CDT [facility] - CORE LAB Triglycerides 191(H) <150 mg/dL 01/12/2024 10:47 AM T [facility] - [facility] Direct Measure HDL 40(L) >=50 mg/dL 01/12/2024 10:47 AM CDT [facility] - CORE LAB LDL Cholesterol Calculated 130(H) <=100 mg/dL 01/12/2024 10:47 AM T [facility] - CORE LAB Non HDL Cholesterol 168(H) <130 mg/dL 01/12/2024 10:47 AM T [facility] - CORE LAB Patient Fasting > 8hrs? No 01/12/2024 10:47 AM T [facility] - CORE LAB Blood STRUCTURE OF RIGHT UPPER LIMB / Unknown Venipuncture / Unknown 01/12/2024 10:19 AM CDT 01/12/2024 10:19 AM CDT [facility] LABORATORY - CORE LAB - 01/12/2024 10:47 [...] Fu MD LAB - BLOO D ORDERABLES [facility] - CORE LAB [facility] - [address] 1st [place] [address] * (ABNORMAL) Tacrolimus by Tandem Mass Spectrometry (01/12/2024 10:19 AM CDT) Pathologist [facility] Tacrolimus by Tandem Mass Spectrometry 4.9(L) 5.0 - 15.0 ug/L 01/12/2024 6:22 PM CDT [facility] Comment: Tacrolimus Reference Range (ug/L): Kidney Transplant: Pediatric 0-3 months post transplant: - 3-6 months post transplant: 8-10 6-12 months [...] and its performance characteristics determined by the [facility], ??Special Chemistry Laboratory. It has not been cleared or approved by the FDA. The laboratory is regulated under CLIA as qualified to perform high-complexity testing. This test is used for clinical purposes. It should not be regarded as investigational or for research. Kylee Fu MD LAB - BLOO D ORDERABLES [facility] 500 [facility], Room [address] [place] [address] * Hepatic panel (01/12/2024 10:19 AM CDT) Protein Total 6.8 6.4 - 8.3 g/dL 01/12/2024 10:47 AM CDT [facility] - [facility] Albumin 4.1 3.5 - 5.2 g/dL 01/12/2024 10:47 AM CDT [facility] - [facility] Bilirubin Total 0.2 <=1.2 mg/dL 01/12/2024 10:47 AM CDT [facility] - [facility] Alkaline Phosphatase 66 40 - 150 U/L 01/12/2024 10:47 AM CDT [facility] Comment:Reference intervals for this test were updated on 08/18/2023 to more accurately reflect our healthy population. There may be differences in the flagging of prior results with similar values performed with this method. Interpretation of those prior results can be made in the context of the updated reference intervals. AST 14 0 - 45 U/L 01/12/2024 10:47 AM CDT [facility] - [facility] Comment:Reference intervals for this test were updated on 03/16/2023 to more accurately reflect our healthy population. There may be differences in the flagging of prior results with similar values performed with this method. Interpretation of those prior results can be made in the context of the updated reference intervals. ALT 13 0 - 50 U/L 01/12/2024 10:47 AM CDT [facility] Comment:Reference intervals for [...] - 0.30 mg/dL 01/12/2024 10:47 AM CDT [facility] Blood STRUCTURE OF RIGHT UPPER LIMB / Unknown Venipuncture / Unknown 01/12/2024 10:19 AM CDT 01/12/2024 10:19 AM CDT Kylee Fu MD LAB - BLOO D ORDERABLES [facility] - [facility] [address] 1st [place] [address] * (ABNORMAL) CBC with platelets (01/12/2024 10:19 AM CDT) [facility] WBC Count 6.1 4.0 - 11.0 10e3/uL 01/12/2024 10:23 AM CDT [facility] RBC Count 4.77 3.80 - 5.20 10e6/uL 01/12/2024 10:23 AM CDT [facility] Hemoglobin 12.3 11.7 - 15.7 g/dL 01/12/2024 10:23 AM CDT [facility] Hematocrit 38.6 35.0 - 47.0 % 01/12/2024 10:23 AM CDT [facility] MCV 81 78 - 100 fL 01/12/2024 10:23 AM CDT [facility] MCH 25.8(L) 26.5 - 33.0 pg 01/12/2024 10:23 AM CDT [facility] - [facility] MCHC 31.9 31.5 - 36.5 g/dL 01/12/2024 10:23 AM CDT [facility] - [facility] RDW 14.3 10.0 - 15.0 % 01/12/2024 10:23 AM CDT [facility] Platelet Count 187 150 - 450 10e3/uL 01/12/2024 10:23 AM CDT [facility] Blood STRUCTURE OF RIGHT UPPER LIMB / Unknown Venipuncture / Unknown 01/12/2024 10:19 AM CDT 01/12/2024 10:19 AM CDT Kylee Fu MD LAB - BLOO D ORDERABLES [facility] - [facility] Clinics and Surgery [facility] [address] [facility] 1st [place] [address] * (ABNORMAL) Basic metabolic panel (01/12/2024 10:19 AM CDT) [facility] Sodium 142 135 - 145 mmol/L 01/12/2024 10:47 AM CDT [facility] - [facility] Comment:Reference intervals for this test were updated on 06/30/2023 to more accurately reflect our healthy population. There may be differences in the flagging of prior results with similar values performed with this method. Interpretation of those prior results can be made in the context of the updated reference intervals. Potassium 3.6 3.4 - 5.3 mmol/L 01/12/2024 10:47 AM CDT [facility] Chloride 107 98 - 107 mmol/L 01/12/2024 10:47 AM CDT [facility] Carbon Dioxide (CO2) 23 22 - 29 mmol/L 01/12/2024 10:47 AM CDT [facility] Anion Gap 12 7 - 15 mmol/L 01/12/2024 10:47 AM CDT [facility] Urea Nitrogen 13.3 8.0 - 23.0 mg/dL 01/12/2024 10:47 AM CDT [facility] Creatinine 1.22(H) 0.51 - 0.95 mg/dL 01/12/2024 10:47 AM CDT [facility] GFR Estimate 47(L) >60 mL/min/1. 73m2 01/12/2024 10:47 AM CDT [facility] Calcium 9.2 8.8 - 10.2 mg/dL 01/12/2024 10:47 AM CDT [facility] Glucose 121(H) 70 - 99 mg/dL 01/12/2024 10:47 AM CDT [facility] Blood STRUCTURE OF RIGHT UPPER LIMB / Unknown Venipuncture / Unknown 01/12/2024 10:19 AM CDT 01/12/2024 10:19 AM CDT Kylee Fu MD LAB - BLOO D ORDERABLES Performing Organization Address City/State/[facility] Co de Phone Number [facility] - [facility] [address] 1st [place] [address] documented in this encounter Visit Diagnoses Diagnosis Aftercare following organ transplant Encounter for long-term current use of medication Kidney replaced by transplant Liver replaced by transplant (H) Liver replaced by transplant Lipid screening Screening for lipoid disorders documented in this encounter Care Teams Art Sales Consultant Relationship Specialty Start Date End Date Georgette Velez MD [address] [place], [place] [phone] Assigned Nephrology Provider 08/29/23 01/25/24 Lissa White PA-C [address] [place], [place] [phone] Physician Welding Manager Endocrinology, Diabetes, and Metabolism 01/05/24 documented as of this encounter
--- OUTSIDE RECORDS SUMMARY | 2024-03-17 16:17 | XMS_ITS | Encounter Summary ---
Author Organization [place] Address [address] [place] [address] Care Team Providers Care Plant Breeder Name Role Phone Georgette Velez MD Unavailable [phone] Lissa White PA-C Unavailable Encounter Details Date Type Department Care Team ([facility] st Contact Info) Description 01/13/[address] [phone] Lissa White PA-C [address] [place] [address] Social History Tobacco Use Types Packs/Day Years [...] PM CDT documented as of this encounter Miscellaneous Notes * Telephone Encounter - Eden Miles - 01/15/2024 9:17 AM CDT Left Voicemail (2nd Attempt) and Sent Mychart (2nd Attempt) for the patient to call back and schedule the following: Appointment type: new diabetes Provider: any Return date: first available at [facility] (per pt does not want to go to ) Specialty phone number: [phone] Additional appointment(s) needed: Additonal Notes: pt scheduled with Lissa White on 05/04 virtual and 05/06 in person MG Pt wants to see provider at the [facility]; in said first available is July If pt wants to schedule at [facility] cancel appts with Lissa Miles on 01/15/2024 at 9:18 AM * Telephone Encounter - Eden Miles - 01/13/2024 3:48 PM CDT Left Voicemail (1st Attempt) and Sent Mychart (1st Attempt) for the patient to call back and schedule the following: Appointment type: new diabetes Provider: any Return date: see below Specialty phone number: [phone] Additional appointment(s) needed: Additonal Notes: pt scheduled with Lissa White on 05/04 virtual and 05/06 in person MG Pt wants to see provider at the [facility]; in said first available is July If pt wants to schedule at [facility] cancel appts with Lissa Miles on 01/13/2024 at 3:51 PM documented in this encounter Plan of Treatment Upcoming Encounters Date Type Department Care Team (Late st Contact Info) Description 04/04/2024 PRE VISIT [facility] Colon and Rectal Surgery Clinic [address] [phone] Eriberto Romano MD [address] [place] [address] Previsit 04/04/2024 11:00 AM CDT Office Visit [facility] Colon and Rectal Surgery [address] [place] [phone] Kylee Fu MD [address] [facility] [place] [address] Eriberto Romano MD 420 [facility] 195 [place] [address] 05/04/2024 2:00 PM CDT Virtual Visit [address] [phone] Lissa White PA-C [address] [place], [place] [phone] 05/06/2024 2:00 PM CDT Office Visit [address] [phone] Lissa White PA-C [address] [place], [place] [phone] 05/10/2024 8:00 AM CDT Office Visit [facility] Hepatology Clinic [address] [phone] Kylee Fu MD 6 [facility] 2[address] [place], [place] [address] 08/23/2024 10:30 AM PRODUCT TRAINER Office Visit [facility] Transplant Clinic [address] [place] [phone] Georgette Velez MD [address] [place], [place] [phone] documented as of this encounter Visit Diagnoses Not on filedocumented in this encounter Care Teams Plant Breeder Relationship Specialty Start Date End Date Georgette Velez MD [address] [place] [phone] Assigned Nephrology Provider 08/29/23 01/25/24 Lissa White PA-C [address] [place] [address] Physician Tattoo Artist Endocrinology, Diabetes, and Metabolism 01/05/24 documented as of this encounter
--- OUTSIDE RECORDS SUMMARY | 2024-03-17 16:17 | XMS_ITS | Encounter Summary ---
Author Organization [place] Address [address] [place] [address]. [place] [address] Care Team Providers Care Oceanology Teacher Name Role Phone Georgette Velez MD Unavailable Lissa White PA-C Unavailable Eriberto Romano MD Unavailable Encounter Details Date Type Department Care Team (Late st Contact Info) Description 01/25/2024 Refill [facility] - Medical Specialties Service Line [address] [place] [phone] Georgette Velez MD 500 [place] [address] Social History Tobacco Use Types [...] encounter Miscellaneous Notes * Telephone Encounter - Clemencia Ledezma MA - 01/25/2024 8:17 AM CDT Received refill request for Atorvastatin 10 mg Tab from [facility]. Clemencia Ledezma, Nephrology Clinic Navigator [facility] Direct: [phone]. documented in this encounter Plan of Treatment Upcoming Encounters Date Type Department Care Team (Late st Contact Info) Description 04/04/2024 PRE VISIT [facility] [address] [phone] Eriberto Romano MD [address] [address] Previsit 04/04/2024 11:00 AM CDT Office Visit [facility] [address] [phone] Kylee Fu MD 6 [facility] 2A [place] [address] Eriberto Romano MD [address] [place] [address] 05/04/2024 2:00 PM CDT Virtual Visit [address] [phone] Lissa White PA-C 500 [place] [address] 05/06/2024 2:00 PM CDT Office Visit [address] [phone] Lissa White PA-C 500 [place] [address] 05/10/2024 8:00 AM CDT Office Visit [facility] [place] [place] [phone] Kylee Fu MD 516 [facility] 2A [place], [place] 6529[address] 08/23/2024 10:30 AM MORALS SQUAD POLICE OFFICER Office Visit [facility] [address] [place] [phone] Georgette Velez MD 500 [place], [place] 621555 documented as of this encounter Visit Diagnoses Diagnosis Kidney replaced by transplant documented in this encounter Care Teams Oceanology Teacher Relationship Specialty Start Date End Date Georgette Velez MD [address] [place] [address] 295015 Assigned Nephrology Provider 08/29/23 01/25/24 Lissa White PA-C [address] [place] [address] [phone] Physician Operations Support Coordinator Endocrinology, Diabetes, and Metabolism 01/05/24 Eriberto Romano MD [address] [place] [address] 195 [place], [place] 85[address]35 Colon & Rectal 01/18/24 documented as of this encounter
--- OUTSIDE RECORDS SUMMARY | 2024-03-17 16:17 | XMS_ITS | Encounter Summary ---
Author Organization [place] Address [address] [place] [address]. [place] [address] Care Team Providers Care Ribbon Inker Name Role Phone Georgette Velez MD Unavailable [phone] Lissa White PA-C Unavailable Reason for Referral * Consultation (Routine: Next available opening) - Pending Review Specialty Diagnoses / Procedures Referred By Beata pickett Referred To Contact Gastroenterology Diagnoses Diverticulitis Kylee Fu MD [address] [place] [address] Referral ID Status Reason Start Date Expiration Date V isits Requested Visits Authorized [id number] Pending Review 01/11/2024 01/10/2025 1 1 Question Answer Service: Lower Endoscopy Lower Endoscopy Type: Colonoscopy Reason for Colonoscopy: Diagnostic Sedation Concerns: No medical conditions affecting sedation Sedation Type: Moderate/Conscious Sedation Preferred Location: [facility] Scheduling Instructions: [facility] will call you to coordinate your care as prescribed by the provider. If you don? t hear from a sales representative marine supplies within 2 business days, please call . Comments Please be aware that coverage of these services is subject to the terms and limitations of your health insurance plan. Call member services at your health plan with any benefit or coverage questions. [facility] will call you to coordinate your care as prescribed by the provider. If you don? t hear from a sales representative marine supplies within 2 business days, please call . Encounter Details Date Type Department Care Team (Late st Contact Info) Description 01/11/2024 Telephone [facility] 9 [place] [phone] Daniela Majano RN Social History Tobacco Use Types Packs/Day [...] encounter Miscellaneous Notes * Telephone Encounter - Daniela Majano RN - 01/11/2024 11:19 AM CDT Spoke with Catarina. She will return call to colorectal to make appt with them. She is aware of colonoscopy order and prefers to do ridges. documented in this encounter Plan of Treatment Upcoming Encounters Date Type Department Care Team (Late Contact Info) Description 04/04/2024 PRE VISIT [facility] [address] [place] [phone] Eriberto Romano MD 420 [facility] 195 [place], [place] 8545[address] Previsit 04/04/2024 11:00 AM CDT Office Visit [facility] [address] [place] [phone] Kylee Fu MD 6 [facility] 2A [place], [place] 7577[address] Eriberto Romano MD 420 [facility] 195 [place], [place] [address] 05/04/2024 2:00 PM CDT Virtual Visit [address] [phone] Lissa White PA-C 500 [place], [place] 115235 05/06/2024 2:00 PM CDT Office Visit [address] [phone] Lissa White PA-C 500 [place], [place] 7[address]25 05/10/2024 8:00 AM CDT Office Visit [facility] [address] [phone] Kylee Fu MD [address] [place] [address] 092265 08/23/2024 10:30 AM COMMERCIAL CARPET INSTALLER Office Visit [facility] [address] [place] [phone] Georgette Velez MD [address] [place] [address] 824825 Scheduled Referrals Name Type Priority Associated Diagnoses Orde r Schedule Adult GI Manager Rail Referral - Procedure Only Referral Routine: Next available opening Diverticulitis Expected: 01/11/2024 (Approximate), Expires: 01/10/2025 documented as of this encounter Visit Diagnoses Diagnosis Diverticulitis- Primary Diverticulitis of colon (without mention of hemorrhage) documented in this encounter Care Teams Ribbon Inker Relationship Specialty Start Date End Date Georgette Velez MD [address] [place] [address] Assigned Nephrology Provider 08/29/23 01/25/24 Lissa White PA-C 500 [place] [address] Physician Client Technical Professional Endocrinology, Diabetes, and Metabolism 01/05/24 documented as of this encounter
--- OUTSIDE RECORDS SUMMARY | 2024-03-17 16:17 | XMS_ITS | Encounter Summary ---
Author Organization [place] Address [address] [place] [address] Care Team Providers Care Mail Processor Name Role Phone Georgette Velez MD Unavailable [phone] Lsisa White PA-C Unavailable Eriberto Romano MD Unavailable [phone] William Spain MD Unavailable [phone] Encounter Details Date Type Department Care Team (Late st Contact Info) Description 01/15/2024 MyC Medical Advice [facility] Gastroenterology Clinic [address]th [place] [address] Vinicius Vick Social History Tobacco Use Types Packs/Day Years [...] st Contact Info) Description 04/04/2024 PRE VISIT [facility] [place] [address] [facility] 4th [place] [address] Eriberto Romano MD 420 [facility] 195 [place] [address] Previsit 04/04/2024 11:00 AM CDT Office Visit [facility] [address] 4th [place] [phone] Kylee Fu MD [address] [place] [address] Eriberto Romano MD [address] [address] 05/04/2024 2:00 PM CDT Virtual Visit [address] [phone] Lissa White PA-Devan 500 [place] [address] 05/06/2024 2:00 PM CDT Office Visit [address] [phone] Lissa White PA-C [address] [place] [address] 638625 05/10/2024 8:00 AM CDT Office Visit [facility] Hepatology Clinic [address] [phone] Kylee Fu MD [address] [place] [address] 340835 08/23/2024 10:30 AM FISH WARDEN Office Visit [facility] Transplant Clinic [address] [place] [phone] Georgette Velez MD 500 [place] [address] documented as of this encounter Visit Diagnoses Not on filedocumented in this encounter Care Teams Mail Processor Relationship Specialty Start Date End Date Georgette Velez MD 500 [place] [address] Assigned Nephrology Provider 08/29/23 01/25/24 Lissa White PA-C 500 [place], [place] 851235 Physician Marketing Database Analyst Endocrinology, Diabetes, and Metabolism 01/05/24 Eriberto Roamno MD 420 [facility] 195 [place], [place] 17[address]65 Colon & Rectal 01/18/24 William Spain MD 717 [facility] 353 [facility] 1932 [place], [place] 145354 Assigned Nephrology Provider 01/26/24 documented as of this encounter
--- OUTSIDE RECORDS SUMMARY | 2024-03-17 16:17 | XMS_ITS | Encounter Summary ---
Author Organization [place] Address [address] [place] [address]. [place] [address] Care Team Providers Care Dental Instructor Name Role Phone Lissa White PA-C Unavailable Eriberto Romano MD Unavailable [phone] William Spain MD Unavailable [phone] Encounter Details Date Type Department Care Team (Late st Contact Info) Description 03/17/2024 MyC Medical Advice [facility] [address] [place] [phone] Miranda Diaz, [facility] Social History Tobacco Use Types Packs/Day Years [...] st Contact Info) Description 04/04/2024 PRE VISIT [facility] [address] 4th [place] [address] Eriberto Romano MD [address] [address] Previsit 04/04/2024 11:00 AM CDT Office Visit [facility] [address] 4th [place] [phone] Kylee Fu MD 6 [facility] 2A [place] [address] Eriberto Romano MD [address] 752275 05/04/2024 2:00 PM CDT Virtual Visit [address] [phone] Lissa White PA-Devan 500 [place], [place] 87[address]35 05/06/2024 2:00 PM CDT Office Visit [address] [phone] Lissa White PA-C 500 [place], [place] 501285 05/10/2024 8:00 AM CDT Office Visit [facility] [address] [phone] Kylee Fu MD 6 [facility] 2A [place] [address] 08/23/2024 10:30 AM MS SQL DBA Office Visit [facility] [address] [place] [phone] Georgette Velez MD 500 [place] [address] documented as of this encounter Visit Diagnoses Not on filedocumented in this encounter Care Teams Dental Instructor Relationship Specialty Start Date End Date Lissa White PA-C 500 [place] [address] Physician Dental Mechanic Endocrinology, Diabetes, and Metabolism 01/05/24 Eriberto Romano MD 420 [facility] 195 [place] [address] Colon & Rectal 01/18/24 William pSain MD 717 [facility] 353 [facility] 1932 [place] [address] Assigned Nephrology Provider 01/26/24 documented as of this encounter
--- OUTSIDE RECORDS SUMMARY | 2024-03-17 16:17 | XMS_ITS | Encounter Summary ---
Author Organization [place] Address [address] [place] [address] Care Team Providers Care Gut Carrier Name Role Phone Georgette Velez MD Unavailable [phone] Lissa White PA-C Unavailable Eriberto Romano MD Unavailable [phone] Encounter Details Date Type Department Care Team (Late st Contact Info) Description 01/25/2024 Telephone [facility] Transplant Clinic 9 [place] [address] Scarlet Cruz RN Social History Tobacco Use Types Packs/Day [...] encounter Miscellaneous Notes * Telephone Encounter - Scarlet Cruz RN - 01/25/2024 12:40 PM CDT Images from the original note were not included. William Spain MD [place], Teresa, RN Please check the following labs: CMV PCR, EBV PCR, and CD4 level. Lab orders placed: CMV PCR Quant EBV PCR Quant T cell subset profile OUTCOME: Discussed recommendation with Catarina. Verbalized understanding and agreement to plan. documented in this encounter Plan of Treatment Upcoming Encounters Date Type Department Care Team (Late st Contact Info) Description 04/04/2024 PRE VISIT [facility] Rectal Surgery Clinic [address] [phone] Eriberto Romano MD [address] [address] Previsit 04/04/2024 11:00 AM CDT Office Visit [facility] Colon and Rectal Surgery [address] [phone] Kylee Fu MD 6 [facility] 2A [place] [address] Eriberto Romano MD [address] [address] 05/04/2024 2:00 PM CDT Virtual Visit [address] [phone] Lissa White PA-C 500 [place] [address] 05/06/2024 2:00 PM CDT Office Visit [address] [phone] Lissa White PA-C 500 [place], [place] 2230[address] 05/10/2024 8:00 AM CDT [facility] [address] [phone] Kylee Fu MD [address] [place] [address] 941255 08/23/2024 10:30 AM HEALTHCARE REPRESENTATIVE Office Visit [facility] Transplant Clinic [address] [place] [phone] Georgette Velez MD 500 [place], [place] [phone] Scheduled Orders Name Type Priority Associated Diagnoses Orde r Schedule CMV Quantitative, PCR (Blood) Microbiology Routine Kidney transplanted Immunosuppressed status (H24) Aftercare following organ transplant Encounter for long-term (current) use of high-risk medication Expected: 01/25/2024 (Approximate), Expires: 01/24/2025 [place] U[place]ia Virus Quantitative PCR, Plasma Microbiology Routine Kidney transplanted Immunosuppressed status (H24) Aftercare following organ transplant Encounter for long-term (current) use of high-risk medication Expected: 01/25/2024 (Approximate), Expires: 01/24/2025 T cell subset profile Lab Routine Kidney transplanted Immunosuppressed status (H24) Aftercare following organ transplant Encounter for long-term (current) use of high-risk medication Expected: 01/25/2024 (Approximate), Expires: 01/24/2025 documented as of this encounter Visit Diagnoses Diagnosis Kidney transplanted- Primary Kidney replaced by transplant Immunosuppressed status (H24) Unspecified disorder of immune mechanism Aftercare following organ transplant Encounter for long-term (current) use of high-risk medication Encounter for long-term (current) use of other medications documented in this encounter Care Teams Gut Carrier Relationship Specialty Start Date End Date Georgette Velez MD [address] [place] [address] 511085 Assigned Nephrology Provider 08/29/23 01/25/24 Lissa White PA-C [address] [place] [address] Physician Senior Software Engineer Analytics Endocrinology, Diabetes, and Metabolism 01/05/24 Eriberto Romano MD [address] [place] [address] 195 [place] [address] Colon & Rectal 01/18/24 documented as of this encounter
--- OUTSIDE RECORDS SUMMARY | 2024-03-17 16:17 | XMS_ITS | Encounter Summary ---
Author Organization [place] Address [address] [place] [address] Care Team Providers Care Boat Canvas Maker Installer Name Role Phone Georgette Velez MD Unavailable [phone] Lissa White PA-C Unavailable Reason for Visit * Reason Onset Date Comments Transplant 01/11/2024 Encounter Details Date Type Department Care Team (Late st Contact Info) Description 01/11/2024 Telephone [facility] Transplant Clinic 9 [place] [address] Gianna Varela LPN Transplant Social History Tobacco Use Types Packs/Day Years [...] encounter Miscellaneous Notes * Telephone Encounter - Gianna Varela LPN - 01/11/2024 11:23 AM CDT Apron Trimmer called [facility] and unable to get pt in at 830a. Suggested that pt arrive an hour early so staff can squeeze pt in. Pt understood. documented in this encounter Plan of Treatment Upcoming Encounters Date Type Department Care Team (Late st Contact Info) Description 04/04/2024 PRE VISIT [facility] [address] [phone] Eriberto Romano MD [address] [place] [address] 578165 Previsit 04/04/2024 11:00 AM CDT Office Visit [facility] [address] [phone] Kylee Fu MD [address] [place] [address] 698355 Eriberto Romano MD [address] [place] [address] 438825 05/04/2024 2:00 PM CDT Virtual Visit [address] [phone] Lissa White PA-Devan 500 [place], [place] 081915 05/06/2024 2:00 PM CDT Office Visit [address] [phone] Lissa White PA-Devan 500 [place], [place] [address]885 05/10/2024 8:00 AM CDT Office Visit [facility] Hepatology [facility] [address] [phone] Kylee Fu MD [address] [place] [address] 08/23/2024 10:30 AM PATTERN CHECKER Office Visit [facility] Transplant [facility] 909 [place] [phone] Georgette Velez MD 500 [place] [address] documented as of this encounter Visit Diagnoses Not on filedocumented in this encounter Care Teams Boat Canvas Maker Installer Relationship Specialty Start Date End Date Georgette Velez MD [address] [place] [address] Assigned Nephrology Provider 08/29/23 01/25/24 Lissa White PA-C [address] [place] [address] Physician Sheet Cutting Operator Endocrinology, Diabetes, and Metabolism 01/05/24 documented as of this encounter
--- OUTSIDE RECORDS SUMMARY | 2024-03-17 16:17 | XMS_ITS | Encounter Summary ---
Author Organization [place] Address [address] [place] [address] Care Team Providers Care Automotive Teacher Name Role Phone Georgette Velez MD Unavailable [phone] Lissa White PA-C Unavailable Encounter Details Date Type Department Care Team (Latest Contact Info) Description 01/12/2024 Travel Social History Tobacco Use Types Packs/Day Years [...] st Contact Info) Description 04/04/2024 PRE VISIT [facility] Colon [facility] Rectal Surgery Clinic [address] [phone] Eriberto Romano MD [address] [place] [address] 699605 Previsit 04/04/2024 11:00 AM CDT Office Visit [facility] [address] [phone] Kylee Fu MD 516 [facility] 2A [place], [place] [address] Eriberto Romano MD 420 [facility] 195 [place], [place] [address] 05/04/2024 2:00 PM CDT Virtual Visit [address] [phone] Lissa White PA-C 500 [place], [place] 888455 05/06/2024 2:00 PM CDT Office Visit [address] [phone] Lissa White PA-C [address] [place] [address] 523915 05/10/2024 8:00 AM CDT Office Visit [facility] Hepatology Clinic [address] [phone] Kylee Fu MD 6 [facility] 2A [place], [place] [address]75 08/23/2024 10:30 AM CONVEYOR LINE BAKERY WORKER Office Visit [facility] Trans[facility] [address] [place] [phone] Georgette Velez MD 500 [place], [place] 716605 documented as of this encounter Visit Diagnoses Not on filedocumented in this encounter Care Teams Automotive Teacher Relationship Specialty Start Date End Date Georgette Velez MD [address] [place] [address] Assigned Nephrology Provider 08/29/23 01/25/24 Lissa White PA-C 500 [place] [address] Physician Electrical Lineworker Endocrinology, Diabetes, and Metabolism 01/05/24 documented as of this encounter
--- OUTSIDE RECORDS SUMMARY | 2024-03-17 16:17 | XMS_ITS | Encounter Summary ---
Author Organization [place] Address [address] [place] [address]. [place] [address] Care Team Providers Care Floral Arranger Name Role Phone Georgette Velez MD Unavailable [phone] Lissa White PA-C Unavailable Eriberto Romano MD Unavailable [phone] William Spain MD Unavailable [phone] Encounter Details Date Type Department Care Team (Late st Contact Info) Description 01/13/2024 MyC Medical Advice [facility] Endocrinology Clinic [address] 3rd [place] [address] [facility] Social [facility] Tobacco Use Types Packs/Day [...] st Contact Info) Description 04/04/2024 PRE VISIT [facility] Colon and Rectal Surgery Clinic [address] 4th [place] [address] Eriberto Romano MD [address] [address] Previsit 04/04/2024 11:00 AM CDT Office Visit [facility] Colon and Rectal Surgery Clinic [address] 4th [place] [phone] Kylee Fu MD [address] [place] [address] 2A [place] [address] Eriberto Romano MD [address] [address] 05/04/2024 2:00 PM CDT Virtual Visit [address] [phone] Lissa White PA-C 500 [place] [address] 05/06/2024 2:00 PM CDT Office Visit [address] [phone] Lissa White PA-C 500 [place], [place] 9[address]95 05/10/2024 8:00 AM CDT Office Visit [facility] Hepatology Clinic [address] [phone] Kylee Fu MD [address] [place] [address] 043295 08/23/2024 10:30 AM AVIATION MECHANIC Office Visit [facility] Transplant Clinic [address] [place] [address] [phone] Georgette Velez MD 500 [place] [address] documented as of this encounter Visit Diagnoses Not on filedocumented in this encounter Care Teams Floral Arranger Relationship Specialty Start Date End Date Georgette Velez MD 500 [place] [address] Assigned Nephrology Provider 08/29/23 01/25/24 Lissa White PA-C 500 [place] [address] Physician Distribution Lineman Endocrinology, Diabetes, and Metabolism 01/05/24 Eriberto Romano MD 420 [facility] 195 [place], [place] 206775 Colon & Rectal 01/18/24 William Spain MD 717 [facility] 353 [facility] 1932 [place], [place] [address] Assigned Nephrology Provider 01/26/24 documented as of this encounter
--- OUTSIDE RECORDS SUMMARY | 2024-03-17 16:17 | XMS_ITS | Encounter Summary ---
Author Organization [place] Address [address] [place] [address]. [place] [address] Care Team Providers Care Review Rn Name Role Phone Georgette Velez MD Unavailable [phone] Lissa White PA-C Unavailable Eriberto Romano MD Unavailable Reason for Visit * Reason Onset Date Comments Medication Refill 01/19/2024 Encounter Details Date Type Department Care Team (Late st Contact Info) Description 01/19/2024 Telephone [facility] [address] [place] [phone] Gianna Varela LPN Medication Refill Social History Tobacco Use Types Packs/Day Years [...] Telephone Encounter - Gianna Varela LPN - 01/19/2024 9:36 AM CDT Pt calls to state that she is completely out of tacro. Took her last dose last evening. Pt states that she has had some medical issues and overlooked ordering the tacro. Script sent to [facility]. documented in this encounter Plan of Treatment Upcoming Encounters Date Type Department Care Team (Late st Contact Info) Description 04/04/2024 PRE VISIT [facility] [address] [phone] Eriberto Romano MD [address] [address] Previsit 04/04/2024 11:00 AM CDT Office Visit [facility] [address] [phone] Kylee Fu MD 6 [facility] [place], [place] [address] Eriberto Romano MD [address] [address] 05/04/2024 2:00 PM CDT Virtual Visit [address] [phone] Lissa White PA-C 500 [place], [place] [address] 05/06/2024 2:00 PM CDT Office Visit [address] [phone] Lissa White PA-C [address] [place], [place] [address] 05/10/2024 8:00 AM CDT Office Visit [facility] [address] [phone] Kylee Fu MD 516 [facility] [address] [address] [place] [address] 08/23/2024 10:30 AM SALES CLERK SUPERVISOR Office Visit [facility] [address] [place] [phone] Georgette Velez MD 500 [place] [address] documented as of this encounter Visit Diagnoses Diagnosis Liver replaced by transplant (H)- Primary Liver replaced by transplant documented in this encounter Care Teams Review Rn Relationship Specialty Start Date End Date Georgette Velez MD [address] [place] [address] Assigned Nephrology Provider 08/29/23 01/25/24 Lissa White PA-C [address] [place] [address] Physician Flight Line Service Attendant Endocrinology, Diabetes, and Metabolism 01/05/24 Eriberto Romano MD [address] [place] [address] 195 [place] [address] Colon & Rectal 01/18/24 documented as of this encounter
--- OUTSIDE RECORDS SUMMARY | 2024-03-17 16:17 | XMS_ITS | Clinical Summary ---
Author Organization [place] Address [address] [place] [address]. [place] [address] Care Team Providers Care Neonatal Intensive Care Nurse Name Role Phone Lissa White PA-C Unavailable Eriberto Romano MD Unavailable William Spain MD Unavailable [phone] Allergies No known active allergies Medications Medication [...] 04/06/2023 Active mycophenolate (GENERIC EQUIVALENT) 250 MG capsuleIndications:Michael iver transplanted (H) Take 2 capsules (500 [...] updated by automated process. Provider to review Encounters Date Type Department Care Team Description 03/17/2024 [facility] [address] [place] [phone] Miranda Diaz, EDGING MACHINE CATCHER 02/08/2024 MyC Medical Advice [facility] [address] [place] [phone] Briseida Parson, RN 01/25/2024 Telephone [facility] [address] [place] [phone] Scarlet Cruz RN 01/25/2024 Refill [facility] - Medical Specialties Service Line [address] [place] [phone] Georgette Velez MD 01/20/2024 MyC Medical Advice [facility] [address] [place] [phone] Vinicius Vick 01/19/2024 Telephone [facility] [address] [phone] Gianna Varela LPN Medication Refill 01/15/2024 MyC Medical Advice [facility] [address] [place] [phone] OntVinicius garcia 01/15/2024 Yahaira Medical Advice [facility] [address] [place] [phone] Analy [place] 01/13/[address] [phone] Lissa White PA-C 01/13/2024 [facility] [address] [place] [phone] Analy [place] 01/12/2024 10:00 AM CDT Lab [facility] [address] [place] [phone] William Spain MD Aftercare following organ transplant; Encounter for long-term current use of medication; Kidney replaced by transplant; Liver replaced by transplant (H); Lipid screening 01/12/2024 9:30 AM CDT Office Visit [facility] [address] [phone] William Spain MD Aftercare following organ transplant (Primary Dx); Kidney replaced by transplant; CKD (chronic kidney disease) stage 2, GFR 60-89 ml/min; Immunosuppressed status (H24); Liver replaced by transplant (H); HTN, kidney transplant related; Sigmoid diverticulitis; Recurrent UTI (urinary tract infection) 01/12/2024 Travel 01/11/2024 10:00 AM CDT Virtual Visit [facility] [address] [phone] Kylee Fu MD Liver replaced by transplant (H) 01/11/2024 Telephone [facility] [address] [phone] Gianna Varela LPN Transplant 01/11/2024 Telephone [facility] [address] [phone] Daniela Majano RN 01/11/2024 MyC Medical Advice [address] [phone] Pau Paul CMA 01/11/2024 Travel 01/05/[address] [phone] Lissa White PA-C Appointment; Call Back 01/04/2024 MyC Medical Advice [facility] [address] [phone] Scarlet Cruz, RUIZ 01/04/2024 Telephone [facility] [address] [place] [phone] Unknown, Provider Referral (Next available surgeon) 01/04/2024 Telephone [facility] [address] [phone] Scarlet Cruz RN 01/04/2024 Telephone [facility] [address] [place] [phone] None Referral (Perforated ) 01/04/2024 Orders Only [facility] [address] [place] [phone] Daniela Majano RN Perforation bowel (H) (Primary Dx) 01/01/2024 MyC Medical Advice [facility] [address] [place] [phone] Arelis Humphrey CMA 01/01/2024 Telephone [facility] [address] [place] [phone] Hafsa Tripp RN HOSP D/C 01/01/2024 Telephone [facility] [address] [place] [phone] Scarlet Cruz RN Call Back 12/31/2023 Documentation Only [facility] - General Medicine & Pediatrics [address] [place] [phone] Jennifer Serra MD 12/31/2023 Telephone [facility] [address] [place] [phone] Scarlet Cruz, RUIZ Patient currently in hospital with infection 12/29/2023 Telephone [facility] [address] [place] [phone] Scarlet Cruz RN from Last 3 Months Immunizations Name Administration Dates Next Due Influenza (IIV3) PF 08/04/2006 Family History Medical History Relation Comments Respiratory Mother copd Relation Status Comments Mother Social History Tobacco Use Types Packs/Day Years [...] st Contact Info) Description 04/04/2024 PRE VISIT [facility] [address] [phone] Eriberto Romano MD [address] [place] [phone] Previsit 04/04/2024 11:00 AM CDT Office Visit [facility] [address] [phone] Kylee Fu MD [address] [place] [address] [address] [place], [place] [address] Eriberto Romano MD [address] [place] [address] 05/04/2024 2:00 PM CDT Virtual Visit [address] [phone] Lissa White PA-C 500 [place] [address] 05/06/2024 2:00 PM CDT Office Visit [address] [phone] Lissa White PA-C [address] [place], [place] [address] 05/10/2024 8:00 AM CDT Office Visit [facility] [address] [phone] Kylee Fu MD [address] [place] [address] 08/23/2024 10:30 AM LOG CHIPPER Office Visit [facility] [address] [place] [phone] Georgette Velez MD 500 [place], [place] [phone] Health Maintenance Due Date Last Done Comments A1C 1950 ADVANCE CARE PLANNING 1950 ANNUAL REVIEW OF HM ORDERS 1950 CT COLONOGRAPHY 1950 DIABETIC FOOT EXAM 1950 EYE EXAM 1950 FIT 1950 FLEX SIG 1950 MICROALBUMIN 1950 sDNA (Cologuard) 1950 HEPATITIS C SCREENING 1970 HEPATITIS A IMMUNIZATION (1 of 2 - Risk 2-dose series) 1971 MAMMO SCREENING 10/12/2008 10/12/2007 TSH W/FREE T4 REFLEX 11/27/2009 11/27/2008, 10/12/2007, 08/04/2006 COLONOSCOPY 12/17/2010 12/18/2007 COLORECTAL CANCER SCREENING 12/17/2010 HEPATITIS B IMMUNIZATION (1 of 3 - Risk 3-dose series) 2012 RSV VACCINE ( & 60+) (1 - 1-dose 60+ series) 2012 Pneumococcal Vaccine: 65+ Years (2 of 2 - PCV) 08/05/2017 08/05/2016 FALL RISK ASSESSMENT 2017 MEDICARE ANNUAL WELLNESS VISIT 12/21/2018 12/21/2017, 10/11/2007, 08/04/2006 COVID-19 Vaccine (3 - Pfizer risk series) 02/01/2021 01/04/2021, 11/20/2020 ZOSTER IMMUNIZATION (2 of 2) 11/06/2021 09/11/2021, 12/26/2015 DEXA 10/12/2022 10/12/2007 INFLUENZA VACCINE (Season Ended) 2024 09/11/2021, 06/22/2019, 01/14/2018, Additional history exists BMP 01/11/2025 01/12/2024, 0 02/2023, 10/12/2007, Additional history exists LIPID 01/11/2025 01/12/2024, 05/2008, 08/04/2006 DTAP/TDAP/TD IMMUNIZATION (2 - Td or Tdap) 12/25/2025 12/26/2015 URINALYSIS Completed 08/21/2023, 0 02/2023, 10/11/2007 PHQ-2 (once per calendar year) Completed 01/11/2024, 05/26/2023 HPV IMMUNIZATION Aged Out No longer e ligible based on patient's age to complete this topic IPV IMMUNIZATION Aged Out No longer e ligible based on patient's age to complete this topic MENINGITIS IMMUNIZATION Aged Out No l onger eligible based on patient's age to complete this topic RSV MONOCLONAL ANTIBODY Aged Out No l onger eligible based on patient's age to complete this topic Procedures Procedure Name Priority Date/Time Associated Diagnosis [...] REFLEX TO CULTURE Routine 08/21/2023 10:15 AM LOG CHIPPER Dysuria HCL TSH Routine 11/27/2008 10:50 AM LOG CHIPPER Unspecified Hypothyroidism COLONOSCOPY Routine 12/18/2007 12:40 PM [...] - MICRO GENERAL ORDERABLES [facility] Inf. Diseases Diag. Lab 500 [facility], [address] [place] [phone], [facility] * Davis Kelly Virus Quantitative PCR, Plasma [...] - MICRO GENERAL ORDERABLES [facility] Inf. Diseases Diag. Lab 500 [facility], [address] [place] [phone] * (ABNORMAL) Tacrolimus by Tandem Mass Spectrometry [...] and its performance characteristics determined by the [facility], ??Special Chemistry Laboratory. It has not been cleared or approved by the FDA. The laboratory is regulated under CLIA as qualified to perform high-complexity testing. This test is used for clinical purposes. It should not be regarded as investigational or for research. Kylee Fu MD LAB - BLOO D ORDERABLES [facility] [address] [facility], [address] [place] [address], [facility] * (ABNORMAL) Lipid Profile (01/12/2024 10:19 AM CDT) Cholesterol 208(H) <200 mg/dL 01/12/2024 10:47 AM CDT [facility] LAB Triglycerides 191(H) <150 mg/dL 01/12/2024 10:47 AM CDT [facility] Direct Measure HDL 40(L) >=50 mg/dL 01/12/2024 10:47 AM CDT [facility] LDL Cholesterol Calculated 130(H) <=100 mg/dL 01/12/2024 10:47 AM CDT [facility] Non HDL Cholesterol 168(H) <130 mg/dL 01/12/2024 10:47 AM CDT [facility] Patient Fasting > 8hrs? No 01/12/2024 10:47 AM CDT [facility] Blood STRUCTURE OF RIGHT UPPER LIMB / Unknown Venipuncture / Unknown 01/12/2024 10:19 AM CDT 01/12/2024 10:19 AM CDT Narrative [facility] - 01/12/2024 10:47 [...] Fu MD LAB - BLOO D ORDERABLES [facility] - CORE LAB [facility] [place] [address] [place] [address] 1st [place] [address] * Hepatic panel (01/12/2024 10:19 AM CDT) Protein Total 6.8 6.4 - 8.3 g/dL 01/12/2024 10:47 AM CDT [facility] Albumin 4.1 3.5 - 5.2 g/dL 01/12/2024 10:47 AM CDT [facility] Bilirubin Total 0.2 <=1.2 mg/dL 01/12/2024 10:47 AM CDT [facility] Alkaline Phosphatase 66 40 - 150 U/L 01/12/2024 10:47 AM CDT [facility] Comment:Reference intervals for this test were updated on 08/18/2023 to more accurately reflect our healthy population. There may be differences in the flagging of prior results with similar values performed with this method. Interpretation of those prior results can be made in the context of the updated reference intervals. AST 14 0 - 45 U/L 01/12/2024 10:47 AM CDT [facility] Comment:Reference intervals for this test were updated on 03/16/2023 to more accurately reflect our healthy population. There may be differences in the flagging of prior results with similar values performed with this method. Interpretation of those prior results can be made in the context of the updated reference intervals. ALT 13 0 - 50 U/L 01/12/2024 10:47 AM CDT [facility] Comment:Reference intervals for [...] - 0.30 mg/dL 01/12/2024 10:47 AM CDT [facility] Blood STRUCTURE OF RIGHT UPPER LIMB / Unknown Venipuncture / Unknown 01/12/2024 10:19 AM CDT 01/12/2024 10:19 AM CDT Kylee Fu MD LAB - BLOO D ORDERABLES [facility] LAB [facility] [place] [address] [facility] 1st [place] [address] * (ABNORMAL) Basic metabolic panel (01/12/2024 10:19 AM CDT) Pathologist [facility] Sodium 142 135 - 145 mmol/L 01/12/2024 10:47 AM CDT [facility] Comment:Reference intervals for this test were updated on 06/30/2023 to more accurately reflect our healthy population. There may be differences in the flagging of prior results with similar values performed with this method. Interpretation of those prior results can be made in the context of the updated reference intervals. Potassium 3.6 3.4 - 5.3 mmol/L 01/12/2024 10:47 AM CDT [facility] Chloride 107 98 - 107 mmol/L 01/12/2024 10:47 AM CDT [facility] Carbon Dioxide (CO2) 23 22 - 29 mmol/L 01/12/2024 10:47 AM CDT [facility] Anion Gap 12 7 - 15 mmol/L 01/12/2024 10:47 AM CDT [facility] Urea Nitrogen 13.3 8.0 - 23.0 mg/dL 01/12/2024 10:47 AM CDT [facility] Creatinine 1.22(H) 0.51 - 0.95 mg/dL 01/12/2024 10:47 AM CDT [facility] GFR Estimate 47(L) >60 mL/min/1. 73m2 01/12/2024 10:47 AM CDT [facility] Calcium 9.2 8.8 - 10.2 mg/dL 01/12/2024 10:47 AM CDT [facility] Glucose 121(H) 70 - 99 mg/dL 01/12/2024 10:47 AM CDT [facility] Blood STRUCTURE OF RIGHT UPPER LIMB / Unknown Venipuncture / Unknown 01/12/2024 10:19 AM CDT 01/12/2024 10:19 AM CDT Kylee Fu MD LAB - BLOO D ORDERABLES [facility] [place] [address] [facility] 1st [place] [address] * (ABNORMAL) CBC with platelets (01/12/2024 10:19 AM CDT) [facility] WBC Count 6.1 4.0 - 11.0 10e3/uL 01/12/2024 10:23 AM CDT [facility] RBC Count 4.77 3.80 - 5.20 10e6/uL 01/12/2024 10:23 AM CDT [facility] Hemoglobin 12.3 11.7 - 15.7 g/dL 01/12/2024 10:23 AM CDT [facility] Hematocrit 38.6 35.0 - 47.0 % 01/12/2024 10:23 AM CDT [facility] MCV 81 78 - 100 fL 01/12/2024 10:23 AM CDT [facility] MCH 25.8(L) 26.5 - 33.0 pg 01/12/2024 10:23 AM CDT [facility] MCHC 31.9 31.5 - 36.5 g/dL 01/12/2024 10:23 AM CDT [facility] RDW 14.3 10.0 - 15.0 % 01/12/2024 10:23 AM CDT [facility] Platelet Count 187 150 - 450 10e3/uL 01/12/2024 10:23 AM CDT [facility] Blood STRUCTURE OF RIGHT UPPER LIMB / Unknown Venipuncture / Unknown 01/12/2024 10:19 AM CDT 01/12/2024 10:19 AM CDT Kylee Fu MD LAB - BLOO D ORDERABLES [facility] [address] 1st [place] [address] * Lab Result - HIM Scan (01/01/2024 12:00 AM CDT) Only the most recent of3 resultswithin the time period is included. 01/01/2024 Provider Outside NON-BEAKER LAB TE STING * (ABNORMAL) UA with Microscopic reflex to Culture (08/21/2023 10:15 AM LOG CHIPPER) Color Urine Light Yellow Colorless, Straw, Light Yellow, Yellow 08/21/2023 10:35 AM [facility] Appearance Urine Clear Clear 08/21/20 10:35 AM [facility] Glucose Urine Negative Negative mg/dL 08/21/2023 10:35 AM [facility] Bilirubin Urine Negative Negative 10:35 AM [facility] Ketones Urine Negative Negative mg/dL 08/21/2023 10:35 AM [facility] Specific [place] Urine 1.013 1.003 - 1.035 08/21/2023 10:35 AM [facility] Blood Urine Negative Negative 08/21/2023 10:35 AM [facility] pH Urine 5.5 5.0 - 7.0 08/21/2023 10:35 AM [facility] Protein Albumin Urine Negative Negative mg/dL 08/21/2023 10:35 AM [facility] Urobilinogen Urine Normal Normal, 2.0 mg/dL 08/21/2023 10:35 AM [facility] Nitrite Urine Negative Negative 08/21/2023 10:35 AM [facility] Leukocyte Esterase Urine Negative Negative 08/21/2023 10:35 AM [facility] Mucus Urine Present(A) None Seen /LPF 08/21/2023 10:35 AM [facility] RBC Urine 1 <=2 /HPF 08/21/2023 10:35 AM [facility] WBC Urine 2 <=5 /HPF 08/21/2023 10:35 AM [facility] Squamous Epithelials Urine 4(H) <=1 /HPF 08/21/2023 10:35 AM [facility] Urine URINE SPECIMEN OBTAINED BY CLEAN CATCH PROCEDURE / Unknown Non-blood Collection / Unknown 08/21/2023 10:15 AM LOG CHIPPER 08/21/2023 10:21 AM LOG CHIPPER Narrative [facility] - 08/21/2023 10:35 AM LOG CHIPPER Urine Culture not indicated Georgette Velez MD LAB - URINE ORDERABL ES [facility] - [address] [place] [address] * TSH- (11/27/2008 10:50 AM LOG CHIPPER) Pathologist [facility] TSH 0.43 0.4 - 5.0 mU/L [facility] 11/27/2008 10:5 0 AM LOG CHIPPER 11/27/2008 10:55 AM LOG CHIPPER Edgar Jack MD LABORATORY [facility] * COLONOSCOPY (12/18/2007 12:40 PM CDT) [facility] COLONOSCOPY [facility] Endoscopy Department ___ Patient Name: Catarina De [...] ? saturations were monitored continuously. The ? [id number] oscope was introduced through the ? anus [...] Mineral Den sity Impressions 10/12/2007 BONE DENSITOMETRY [address] [id number] 10/12/2007 Patient: ??Catarina Grimmolphus Chart: [id number] : ??1950 Age: ??56 year old Sex: ??female Referring provider: ??EDGAR JACK Procedure: ??Bone density scanning was performed using DEXA technology performed on a SLEDVision scanner. ??Reporting is completed in the form of a T-score. ?? The T-score represents the standard deviation from peak bone mass based on a young healthy adult. Gelatin Plant Supervisor performing scan: ??Gianna Lawson Reference T-Scores: ? [...] OCT 14 2007 Electronically filed by Gwendolyn Myers ??10/15/2007 ??10:51 AM Edgar Jack MD SPECIAL IMAGING ROBERTA DIES from Last 3 Months or Most Recently Relevant to Health Maintenance Care Teams Neonatal Intensive Care Nurse Relationship Specialty Start Date End Date Lissa White PA-C [address] [place] [address] Physician Tire Assembler Endocrinology, Diabetes, and Metabolism 01/05/24 Eriberto Romano MD [address] [facility] [address] [place] [address] Colon & Rectal 01/18/24 William Spain MD [address] [facility] [address] [facility] [address] [place], [place] [address] Assigned Nephrology Provider 01/26/24
--- OUTSIDE RECORDS SUMMARY | 2024-03-17 16:17 | XMS_ITS | Encounter Summary ---
Author Organization [place] Address [address] [place] [address]. [place] [address] Care Team Providers Care Sound System Installer Name Role Phone Georgette Velez MD Unavailable [phone] Lissa White PA-C Unavailable Reason for Visit * Reason Comments RECHECK PT referral. Wants t o know when diarrhea will stop. Encounter Details Date Type Department Care Team (Late st Contact Info) Description 01/12/2024 9:30 AM CDT Office Visit [facility] [address] [place] [address] William Spain MD [address] [place] [address] 353 [employer] [address] [place] [address] Aftercare following organ transplant (Primary Dx); Kidney replaced by transplant; CKD (chronic kidney disease) stage 2, GFR 60-89 ml/min; Immunosuppressed status (H24); Liver replaced by transplant (H); HTN, kidney transplant related; Sigmoid diverticulitis; Recurrent UTI (urinary tract infection) Social History Tobacco Use Types Packs/Day Years [...] PM CDT documented as of this encounter Last Filed Vital Signs Vital Sign Reading Time Taken Comments Blood Pressure 104/72 01/12/2024 9:[address] Pulse 99 01/12/2024 9:22 AM CDT Temperature 36.6 ??C (97.9 ??F) 01/12/2024 9:22 AM CD T Respiratory Rate - - Oxygen Saturation 98% 01/12/2024 9:22 AM CDT Inhaled Oxygen Concentration - - Weight 62 kg (136 lb 11.2 oz) 01/12/2024 9:22 AM CDT Height - - Body Mass Index 24.22 01/11/2024 9:47 AM CDT documented in this encounter Patient Instructions * Patient Instructions* William Spain MD - 01/12/2024 9:30 AM CDT Patient Recommendations: - Recommend increased dietary fiber, such as psyllium, Metamucil, Benefiber or Citrucel. Would alsorecommend trying probiotics. - Recommend checking routine transplant labs every 3 months. Transplant Patient Information Your Post Wedding Coordinator is: Kenny Cruz For non urgent items, we encourage you to contact your coordinator/care team online via [employer] You and your care team can also contact your appraisal coordinator Thursday - Thursday, 8am - 5pm at [phone] (Option 2 to reach the coordinator or Option 4 to schedule an appointment). After hours for urgent matters, please call [facility] at [phone]. documented in this encounter Progress Notes * William Spain MD - 01/12/2024 9:30 AM CDT Images from the original note were not included. TRANSPLANT NEPHROLOGY CHRONIC POST TRANSPLANT VISIT Assessment & Plan # DDKT (SLK): Stable to improved creatinine, likely due to receiving daily IV fluids lately. 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 Transaminases Stable, normal. Followed by Transplant Surgery. # Immunosuppression: Tacrolimus immediate release (goal 4-6), Mycophenolate mofetil (dose 500 mg every 12 hours), and Prednisone (dose 5 mg daily) - Continue with intensive monitoring of immunosuppression for efficacy and toxicity. - Changes: No # Infection Prophylaxis: Last CD4 Level: Not checked. - PJP: None - HSV: Acyclovir (Zovirax), only takes prn. # Hypertension: Controlled; Goal BP: < 130/80 - Changes: No # Diabetes: Controlled (HbA1c <7%) Last HbA1c: 6.6% - Management as per primary care. # Mineral Bone Disorder: - Vitamin D; level: Normal On supplement: No - Calcium; level: Normal On supplement: No # Electrolytes: - Potassium; level: Normal On supplement: No - Bicarbonate; level: Normal On supplement: No # Sigmoid Diverticulitis: Patient with recent hospitalization for this and treated with antibiotics, which she has completed. # Clostridium Difficile Colitis: Some ongoing, but variable diarrhea symptoms. Patient is on oral vancomycin. # Recurrent UTIs: No recent episodes and denies any symptoms at present. # Fatigue: Likely secondary to hospitalization for sigmoid diverticulitis and ongoing diarrhea withC. diff. However, cannot rule out a viral infection. - Recommend checking CMV and EBV PCR. # Skin Cancer Risk: - Discussed sun protection and recommend regular follow up with Dermatology. 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 Return visit: Return in about 1 year (around 01/11/2025). William Spain MD The longitudinal plan of care for kidney transplant was addressed during this visit. Due to the added complexity in care, I will continue to support Catarina Almeida in the subsequent management of this condition(s) and with the ongoing continuity of care of this condition(s). Chief Complaint Ms. Almeida is a 73 year old here for kidney transplant and immunosuppression management. History of Present Illness Ms. Almeida reports feeling okay overall with some medical complaints. Since last clinic visit, patient was hospitalized at an outside hospital for sigmoid diverticulitis. She was started on antibioticsand hydration. Patient was also found to have C. diff. Patient was discharged after a few days on antibiotics, including oral vancomycin for C. diff. She has continued to receive IV fluids daily since her recent discharge. Her appetite is decreased, but trying to take in fluids. Weight is stable. Alittle nausea and vomiting yesterday. Stools are still loose, but variable. She had 6-7 bowel movements a couple of days ago, but only one bowel movement yesterday, although 4x so far today. No bloody or black, tarry stools. No fever, sweats or chills. Her energy level is low with this recent infection and illness. She is active, although really onlygetting minimal exercise. Denies any chest pain, but some shortness of breath with exertion. No legswelling. Occasional, mild night sweats. No pain or burning with urination. Home BP: 120/70s Occasional lightheadedness. Problem List Patient Active Problem List Diagnosis Genital herpes LUMB/LUMBOSAC DISC DISEASE HEPATITIS C Hypothyroidism CARDIOVASCULAR SCREENING; LDL GOAL LESS THAN 160 Kidney replaced by transplant Aftercare following organ transplant CKD (chronic kidney disease) stage 2, GFR 60-89 ml/min Immunosuppressed status (H24) Liver replaced by transplant (H) HTN, kidney transplant related Sigmoid diverticulitis Recurrent UTI (urinary tract infection) Diabetes mellitus, type 2 (H) Allergies No Known Allergies Medications Current Outpatient Medications Medication Sig Dispense Refill acyclovir (ZOVIRAX) 400 MG tablet ONE TABLET 3 TIMES DAILY x 5 days 30 tablet 5 amLODIPine (NORVASC) 5 MG tablet Take 1 tablet by mouth daily atorvastatin (LIPITOR) 10 MG tablet Take 1 tablet (10 mg) by mouth daily for 180 days 90 tablet 1 carvedilol (COREG) 12.5 MG tablet Take 12.5 mg by mouth 2 times daily insulin aspart (NOVOLOG PEN) 100 UNIT/ML pen 8 Units 3 times daily (with meals) plus sliding scale insulin degludec (TRESIBA) 100 UNIT/ML pen Inject 20 Units Subcutaneous every morning LEVOXYL 75 MCG OR TABS ONE DAILY IN THE MORNING 90 0 mycophenolate (GENERIC EQUIVALENT) 250 MG capsule Take 2 capsules (500 mg) by mouth 2 times daily 120 capsule 11 predniSONE (DELTASONE) 5 MG tablet Take 1 tablet (5 mg) by mouth daily 30 tablet 11 Semaglutide, 2 MG/DOSE, (OZEMPIC, 2 MG/DOSE,) 8 MG/3ML pen Inject 2 mg Subcutaneous every 7 days traZODone (DESYREL) 50 MG tablet Take 1 tablet by mouth nightly as needed for sleep vancomycin (VANCOCIN) 125 MG capsule Take 1 capsule (125 mg) by mouth 4 times daily ALENDRONATE SODIUM 70 MG OR TABS 1 TABLET WEEKLY ON AN EMPTY STOMACH (Patient not taking: Reported on 05/26/2023) 4 4 tacrolimus (GENERIC EQUIVALENT) 1 MG capsule Take 2 capsules (2 mg) by mouth every morning AND 1 capsule (1 mg) every evening. 270 capsule 3 No current facility-administered medications for this visit. There are no discontinued medications. Physical Exam Vital Signs: BP 104/72 Pulse 99 Temp 97.9 ??F (36.6 ??C) (Oral) Wt 62 kg (136 lb 11.2 oz) SpO2 98% BMI 24.22 kg/m?? GENERAL APPEARANCE: alert and no distress HENT: mouth without ulcers or lesions RESP: lungs clear to auscultation - no rales, rhonchi or wheezes CV: regular rhythm, normal rate, no rub, no murmur EDEMA: no LE edema bilaterally ABDOMEN: soft, nondistended, nontender, bowel sounds normal MS: extremities normal - no gross deformities noted, no evidence of inflammation in joints, no muscle tenderness SKIN: no rash TX KIDNEY: normal DIALYSIS ACCESS: None Data Latest Ref Rng & Units 01/12/2024 10:19 AM 07/09/2023 10:36 AM 07/07/2008 12:00 AM Renal Sodium 135 - 145 mmol/L 142 140 K 3.4 - 5.3 mmol/L 3.6 3.9 Cl 98 - 107 mmol/L 107 105 Cl (external) 98 - 107 mmol/L 107 105 CO2 22 - 29 mmol/L 23 22 Urea Nitrogen 8.0 - 23.0 mg/dL 13.3 13.2 Creatinine 0.51 - 0.95 mg/dL 1.22 1.09 0.67 @ Glucose 70 - 99 mg/dL 121 227 Calcium 8.8 - 10.2 mg/dL 9.2 9.2 Magnesium 1.7 - 2.3 mg/dL 1.7 This result is from an external source. Latest Ref Rng & Units 07/09/2023 10:36 AM Bone Health Phosphorus 2.5 - 4.5 mg/dL 3.5 Latest Ref Rng & Units 01/12/2024 10:19 AM 07/09/2023 10:36 AM 07/14/2008 9:30 AM Heme WBC 4.0 - 11.0 10e3/uL 6.1 7.6 Hgb 11.7 - 15.7 g/dL 12.3 12.2 Plt 150 - 450 10e3/uL 187 195 155 Latest Ref Rng & Units 01/12/2024 10:19 AM 07/09/2023 10:36 AM 07/07/2008 12:00 AM Liver AP 40 - 150 U/L 66 51 TBili <=1.2 mg/dL 0.2 0.2 Bilirubin Direct 0.00 - 0.30 mg/dL <0.20 <0.20 ALT 0 - 50 U/L 13 10 AST 0 - 45 U/L 14 16 68 @ Tot Protein 6.4 - 8.3 g/dL 6.8 6.4 Albumin g/dL 4.0 @ Albumin 3.5 - 5.2 g/dL 4.1 4.1 This result is from an external source. Recent Labs Lab Test 07/09/23 1036 01/12/24 1019 DOSTAC 07/08/2023 01/11/2024 TACROL 5.1 4.9* documented in this encounter Nursing Notes * Josee Rdz - 01/12/2024 9:30 AM CDT Chief Complaint Patient presents with RECHECK PT referral. Wants to know when diarrhea will stop. Vitals: 01/12/24 0922 01/12/24 0925 01/12/24 0927 01/12/24 0928 BP: 134/75 137/74 104/72 104/72 BP Location: Left arm Left arm Left arm Patient Position: Sitting Sitting Sitting Cuff Size: Adult Small Adult Small Adult Small Pulse: 99 Temp: 97.9 ??F (36.6 ??C) TempSrc: Oral SpO2: 98% Weight: 62 kg (136 lb 11.2 oz) BP Readings from Last 3 Encounters: 01/12/24 104/72 08/21/23 136/67 05/26/23 115/76 BP 104/72 Pulse 99 Temp 97.9 ??F (36.6 ??C) (Oral) Wt 62 kg (136 lb 11.2 oz) SpO2 98% BMI24.22 kg/m?? Josee Rdz documented in this encounter Plan of Treatment Upcoming Encounters Date Type Department Care Team (Late st Contact Info) Description 04/04/2024 PRE VISIT [facility] [address] [phone] Eriberto Romano MD [address] [place] [address] [phone] Previsit 04/04/2024 11:00 AM CDT Office Visit [facility] [address] [phone] Kylee Fu MD [address] [place], [place] [address] [address] [place] [address] Eriberto Romano MD [address] [place] [address] [phone] 05/04/2024 2:00 PM CDT Virtual Visit [address] [phone] Lissa White PA-C [address] [place] [address] [phone] 05/06/2024 2:00 PM CDT Office Visit [address] [phone] Lissa White PA-C [address] [place] [address] 05/10/2024 8:00 AM CDT Office Visit [facility] [address] [phone] Kylee Fu MD [address] [place] [address] [phone] 08/23/2024 10:30 AM SHIPPING AND RECEIVING COORDINATOR Office Visit [facility] Transplant [address] [phone] Georgette Velez MD [address] [place] [address] [phone] documented as of this encounter Visit Diagnoses Diagnosis Aftercare following organ transplant- Primary Kidney replaced by transplant CKD (chronic kidney disease) stage 2, GFR 60-89 ml/min Chronic kidney disease, Stage II (mild) Immunosuppressed status (H24) Unspecified disorder of immune mechanism Liver replaced by transplant (H) Liver replaced by transplant HTN, kidney transplant related 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
--- OUTSIDE RECORDS SUMMARY | 2024-03-17 16:17 | XMS_ITS | Encounter Summary ---
Author Organization [facility] Address [address] [place] [address] Care Team Providers Care Lease Out Man Name Role Phone Georgette Velez MD Unavailable [phone] Lissa White PA-C Unavailable Eriberto Romano MD Unavailable [phone] William Spain MD Unavailable [phone] Encounter Details Date Type Department Care Team (Late st Contact Info) Description 01/20/2024 MyC Medical Advice [facility] Gastroenterology Clinic [address] [place] [address] Vinicius Vick Social History Tobacco [...] st Contact Info) Description 04/04/2024 PRE VISIT [facility] Rectal Surgery [facility] [place] [address] [facility] 4th [place] [address] Eriberto Romano MD [address] [facility] [address] [place] [address] Previsit 04/04/2024 11:00 AM CDT Office Visit [facility] [address] 4th [place] [phone] Kylee Fu MD [address] [place] [address] Erbierto Romano MD [address] [address] 05/04/2024 2:00 PM CDT Virtual Visit [address] [phone] Lissa White PA-Devan [address] [place] [address] 05/06/2024 2:00 PM CDT Office Visit [address] [phone] Lissa White PA-C [address] [place] [address] [phone] 05/10/2024 8:00 AM CDT Office Visit [facility] Hepatology Clinic [address] [phone] Kylee Fu MD [address] [place] [address] 192345 08/23/2024 10:30 AM PEDAL ASSEMBLER Office Visit [facility] Transplant Clinic [address] [place] [phone] Georgette Velez MD [address] [place] [address] documented as of this encounter Visit Diagnoses Not on filedocumented in this encounter Care Teams Lease Out Man Relationship Specialty Start Date End Date Georgette Velez MD [address] [place] [address] Assigned Nephrology Provider 08/29/23 01/25/24 Lissa White PA-C [address] [place], [place] [phone] Physician Staff Air Defense Officer Endocrinology, Diabetes, and Metabolism 01/05/24 Eriberto Romano MD [address] [facility] [address] [place], [place] [phone] Colon & Rectal 01/18/24 William Spain MD 717 [facility] 353 [facility] [address] [place], [place] 779164 Assigned Nephrology Provider 01/26/24 documented as of this encounter
--- OUTSIDE RECORDS SUMMARY | 2024-03-17 16:18 | XMS_ITS | Encounter Summary ---
Author Organization [place] Address [address] [place] [address] Care Team Providers Care Continuous Improvement Black Belt Name Role Phone No Ref-Primary, Physician Primary Care Provider Georgette Velez MD Unavailable [phone] Ely Galvez MD Unavailable [phone] Lissa White PA-C Unavailable Eriberto Romano MD Unavailable William Spain MD Unavailable [phone] Reason for Visit * Reason Onset Date Comments Referral 01/04/2024 Perforated Encounter Details Date Type Department Care Team (Late st Contact Info) Description 01/04/2024 Telephone [facility] [address] 4th [place] [address] None Referral (Perforated ) Social History Tobacco Use Types Packs/Day Years Used Date Smoking Tobacco: Never Smokeless Tobacco: Never Comments:second hand smoke Alcohol Use Standard Drinks/Week Comments Yes 0 (1 standard drink = 0.6 oz pur e alcohol) rare PHQ-2 Answer Date Recorded PHQ-2 Score 0 05/26/2023 Adolescent Education Answer Date Record ed Getting School Help Needed Not on file 06/29 Sex and Gender Information Value Date Recorded Sex Assigned at Not on file Gender Identity Female 01/06/2024 12:46 PM CDT Sexual Orientation Straight 01/06/2024 12 :46 PM CDT documented as of this encounter Miscellaneous Notes * Telephone Encounter - Viji Gastelum - 01/04/2024 11:58 AM CDT [facility] Call Center Phone Message May a detailed message be left on voicemail: yes Reason for Call: Appointment Intake Referring Provider Name: Kylee Fu MD in [facility] SUR[facility] Diagnosis and/or Symptoms: perforated sigmoid/diverticulitis. at [facility] being discharged to follow up [facility] Sending per the request to follow up at [facility] Action Taken: Message routed to: [facility] Colorectal Travel Screening: Not Applicable documented in this encounter Plan of Treatment Upcoming Encounters Date Type Department Care Team (Late st Contact Info) Description 04/04/2024 PRE VISIT [facility] [address] [phone] Eriberto Romano MD [address] [place] [address] Previsit 04/04/2024 11:00 AM CDT Office Visit [facility] [address] [phone] Kylee Fu MD [address] [place], [place] [address] [address] [place] [address] Eriberto Romano MD [address] [place] [address] 05/04/2024 2:00 PM CDT Virtual Visit [address] [phone] Lissa White PA-C [address] [place] [address] 05/06/2024 2:00 PM CDT Office Visit [address] [phone] Lissa White PA-C [address] [place], [place] [phone] 05/10/2024 8:00 AM CDT Office Visit [facility] [address] [phone] Kylee Fu MD [address] [place] [address] [phone] 08/23/2024 10:30 AM BOX STORAGE WORKER Office Visit [facility] [address] [place] [phone] Georgette Velez MD [address] [place] [address] [phone] documented as of this encounter Visit Diagnoses Not on filedocumented in this encounter Care Teams Continuous Improvement Black Belt Relationship Specialty Start Date End Date No Ref-Primary, Physician PCP - General 07/20/23 01/04/24 Georgette Velez MD [address] [place] [address] [phone] Assigned Nephrology Provider 08/29/23 01/25/24 Ely Galvez MD [address] [address] Hospitalist Endocrinology, Diabetes, and Metabolism 09/10/23 01/04/24 Lissa White PA-C [address] [place] [address] Physician Waterproof Bag Sewer Endocrinology, Diabetes, and Metabolism 01/05/24 Eriberto Romano MD 420 [facility] 195 [place] [address] Colon & Rectal 01/18/24 William Spain MD 717 [facility] [place] 353 [facility] [address] [place] [address] Assigned Nephrology Provider 01/26/24 documented as of this encounter
--- OUTSIDE RECORDS SUMMARY | 2024-03-17 16:18 | XMS_ITS | Encounter Summary ---
Author Organization [place] Address [address] [place] [address] Care Team Providers Care Animal Scientist Name Role Phone No Ref-Primary, Physician Primary Care Provider Georgette Velez MD Unavailable [phone] Ely Galvez MD Unavailable [phone] Encounter Details Date Type Department Care Team (Late st Contact Info) Description 01/04/2024 Telephone [facility] [address] [place] [address] Scarlet Cruz RN Social History [...] Telephone Encounter - Scarlet Cruz RN - 01/04/2024 3:07 PM CDT Images from the original note were not included. Maggie Urbano RN [place], Teresa, RN Scheduled for 01/11 at 9:30 in person with [facility], please call. Thx OUTCOME: No answer. Left detailed voicemail. Timecrost message sent as well. Message sent to Dr Spain. documented in this encounter Plan of Treatment Upcoming Encounters Date Type Department Care Team (Late st Contact Info) Description 04/04/2024 PRE VISIT [facility] Surgery [address] [phone] Eriberto Romano MD [address] [place] [address] Previsit 04/04/2024 11:00 AM CDT Office Visit [facility] [address] [phone] Kylee Fu MD [address] [place] [address] [address] [place] [address] Eriberto Romano MD [address] [place] [address] 05/04/2024 2:00 PM CDT Virtual Visit [address] [phone] Lissa White PA-C 500 [place] [address] 05/06/2024 2:00 PM CDT Office Visit [address] [phone] Lissa White PA-C [address] [place] [address] 05/10/2024 8:00 AM CDT Office Visit [facility] [place] [phone] [place] [phone] Kylee Fu MD [address] [address] 08/23/2024 10:30 AM PULMONOLOGY TECHNICIAN Office Visit [facility] [address] [place] [phone] Georgette Velez MD [address] [place], [place] 909455 documented as of this encounter Visit Diagnoses Not on filedocumented in this encounter Care Teams Animal Scientist Relationship Specialty Start Date End Date No Ref-Primary, Physician PCP - General 07/20/23 01/04/24 Georgette Velez MD [address] [place] [address] 359635 Assigned Nephrology Provider 08/29/23 01/25/24 Ely Galvez MD [address] [facility] 200 [place] [address] Hospitalist Endocrinology, Diabetes, and Metabolism 09/10/23 01/04/24 documented as of this encounter
--- OUTSIDE RECORDS SUMMARY | 2024-03-17 16:18 | XMS_ITS | Encounter Summary ---
Author Organization [place] Address [address] [place] [address] Care Team Providers Care Seed Cone Picker Name Role Phone No Ref-Primary, Physician Primary Care Provider Georgette Velez MD Unavailable [phone] Ely Galvez MD Unavailable [phone] Reason for Visit * Reason Onset Date Comments Call Back 01/01/2024 Encounter Details Date Type Department Care Team (Late st Contact Info) Description 01/01/2024 [facility] Transplant Clinic [address] [place] [address] Scarlet Cruz RN Call Back Social History Tobacco Use Types Packs/Day Years [...] encounter Miscellaneous Notes * Telephone Encounter - Nanda Root - 01/01/2024 10:27 AM CDT [facility] Phone Message May a detailed message be left on voicemail: yes Reason for Call: Other: Hafsa calling for Dr.Stephanie Fajardo at [facility]. She is wanting to schedule patient to see for a hospital follow up. I advised her that I had no orders to schedule, she would like a call back to discuss getting orders placed for patient to get her seen next week. They are requesting preferred but any MD will do. Action Taken: Message routed to: Other: RNCC Travel Screening: Not Applicable documented in this encounter Plan of Treatment Upcoming Encounters Date Type Department Care Team ([facility] st Contact Info) Description 04/04/2024 PRE VISIT [facility] Surgery Clinic [address] [phone] Eriberto Romano MD [address] [place] [address] 94[address] Previsit 04/04/2024 11:00 AM CDT Office Visit [facility] [address] [phone] Kylee Fu MD [address] [place] [address] [address] [place] [address] Eriberto Romano MD [address] [place] [address] 05/04/2024 2:00 PM CDT Virtual Visit [address] [phone] Lissa White PA-C [address] [place], [place] 437315 05/06/2024 2:00 PM CDT Office Visit [address] [address] Lissa White PA-C [address] [place], [place] [address] 05/10/2024 8:00 AM CDT Office Visit [facility] Hepatology Clinic [address] [phone] Kylee Fu MD [address] [place] [address] 560275 08/23/2024 10:30 AM PLASTERER MAINTENANCE Office Visit [facility] Transplant Clinic [address] [place] [phone] Georgette Velez MD [address] [place] [address] documented as of this encounter Visit Diagnoses Diagnosis Liver replaced by transplant (H)- Primary Liver replaced by transplant documented in this encounter Care Teams Seed Cone Picker Relationship Specialty Start Date End Date No Ref-Primary, Physician PCP - General 07/20/23 01/04/24 Georgette Velez MD [address] [place] [address] Assigned Nephrology Provider 08/29/23 01/25/24 Ely Galvez MD [address] [facility] 200 [place] [address] Hospitalist Endocrinology, Diabetes, and Metabolism 09/10/23 01/04/24 documented as of this encounter
--- OUTSIDE RECORDS SUMMARY | 2024-03-17 16:18 | XMS_ITS | Encounter Summary ---
Author Organization [place] Address [address] [place] [address] Care Team Providers Care Security Tester Name Role Phone Georgette Velez MD Unavailable Lissa White PA-C Unavailable Reason for Visit * Reason Onset Date Comments Appointment 01/05/2024 Call Back 01/05/2024 Encounter Details Date Type Department Care Team ([facility] st Contact Info) Description 01/05/[address] [address] Lissa White PA-C 500 [place] [address] Appointment; Call Back Social History Tobacco Use Types [...] encounter Miscellaneous Notes * Telephone Encounter - Pau Paul, [facility] - 01/13/2024 1:50 PM CDT Patient can not make it to a 7:30 am appointment in [place]. Patient is requesting to be seen at [place] [facility] as this is much closer to her home. Will forward to the [facility] to schedule a new patient appointment. Pau Paul CMA Adult Endocrinology [facility] * Telephone Encounter - Pau Paul CMA - 01/11/2024 10:12 AM CDT Left message for the patient that appointment available on 01/22/24 at 7:15am. Asked patient to callback [facility] to let us know if this appointment would work for her. Pau Paul CMA Adult Endocrinology [facility] * Telephone Encounter - Scarlet Cruz RN - 01/05/2024 11:14 AM CDT Mazin Elmore is scheduled for a follow-up. RNCC made Dr Zimmerman aware she is scheduled with both Kidney and Liver Transplant Providers. * Telephone Encounter - Pau Paul CMA - 01/05/2024 10:41 AM CDT Left message for the patient to call back. Ok to offer 01/22/24 arrive at 7:15am. Solar Technician stated thatthis appointment will be on hold for 24 hours and that the patient should call back as soon as possible. Pau Paul CMA Adult Endocrinology [facility] * Telephone Encounter - Leslie Anglin - 01/05/2024 10:25 AM CDT Solar Technician did not see any message clarifying what spot to use for this patient. Patient stated she is running out for an appointment and to please leave vm with date and time of an appt. * Telephone Encounter - Pau Paul CMA - 01/05/2024 10:08 AM CDT Attempted to contact the patient, phone goes to right to voicemail. Left message for the patient tocall back. Pau Paul CMA Adult Endocrinology [facility] * Telephone Encounter - Fatemeh Solo - 01/05/2024 9:58 AM CDT [facility] Phone Message May a detailed message be left on voicemail: yes Reason for Call: Other: Patient had appt this week but had to reschedule because it was going to bethe same day as her transplant appt, any way to get her seen sooner for this? Please call if so, use [facility]? Action Taken: Message routed to: [facility] Endo Travel Screening: Not Applicable documented in this encounter Plan of Treatment Upcoming Encounters Date Type Department Care Team (Late st Contact Info) Description 04/04/2024 PRE VISIT [facility]al Surgery Clinic [address] [phone] Eriberto Romano MD [address] [place] [address] [phone] Previsit 04/04/2024 11:00 AM CDT Office Visit [facility] [address] [place] [address] Kylee Fu MD [address] [place], [place] [address] [address] [place], [place] 6[address]75 Eriberto Romano MD [address] [place] [address] 736955 05/04/2024 2:00 PM CDT Virtual Visit [address] [phone] Lissa White PA-C [address] [place] [address] 863075 05/06/2024 2:00 PM CDT Office Visit [address] [phone] Lissa White PA-C [address] [place] [address] 476395 05/10/2024 8:00 AM CDT Office Visit [facility] Hepatology Clinic [address] [phone] Kylee Fu MD [address] [place] [address] 034005 08/23/2024 10:30 AM TRANSVERSE ABDOMINAL MUSCLE NURSE Office Visit [facility] Transplant Clinic [address] [place] [phone] Georgette Velez MD [address] [place] [address] [phone] documented as of this encounter Visit Diagnoses Not on filedocumented in this encounter Care Teams Security Tester Relationship Specialty Start Date End Date Georgette Velez MD [address] [place] [address] [phone] Assigned Nephrology Provider 08/29/23 01/25/24 Lissa White PA-C [address] [place] [address] [phone] Physician Review Coordinator Endocrinology, Diabetes, and Metabolism 01/05/24 documented as of this encounter
--- OUTSIDE RECORDS SUMMARY | 2024-03-17 16:18 | XMS_ITS | Encounter Summary ---
Author Organization [place] Address [address] [place] [address] Care Team Providers Care Ross Lift Operator Name Role Phone No Ref-Primary, Physician Primary Care Provider Georgette Velez MD Unavailable [phone] Ely Galvez MD Unavailable [phone] Lissa White PA-C Unavailable Reason for Visit * Reason Onset Date Comments Referral 01/04/2024 Next available s urgeon Encounter Details Date Type Department Care Team (Late st Contact Info) Description 01/04/2024 Telephone [facility] Colon and Rectal Surgery Clinic [address] 4[address] [place] [address] Unknown, Provider Referral (Next available surgeon) Social History Tobacco Use Types Packs/Day Years [...] encounter Miscellaneous Notes * Telephone Encounter - Celso Du - 01/06/2024 1:08 PM CDT Left Voicemail (2nd attempt), sent letter * Telephone Encounter - Celso Du - 01/04/2024 3:12 PM CDT Left Voicemail (1st Attempt), sent myc for the patient to call back and schedule the following: Appointment type: New Patient Provider: Any surgeon (Drs. Romano, Meena, Disha, Ailin, Jaspal Pelaez or Fan) Return date: Next available appointment with a surgeon per Chioma Owens RNCC Specialty phone number: [phone] Additional appointment(s) needed: n/a Additonal Notes: referral from Dr. Fu for perforated sigmoid/diverticulitis Left CC# documented in this encounter Plan of Treatment Upcoming Encounters Date Type Department Care Team (Late st Contact Info) Description 04/04/2024 PRE VISIT [facility] Colon and Rectal Surgery [address] [phone] Eriberto Romano MD [address] [place] [address] [phone] Previsit 04/04/2024 11:00 AM CDT Office Visit [facility] Colon and Rectal Surgery [address] [phone] Kylee Fu MD [address] [place] [address] [address] [place] [address] Eriberto Romano MD [address] [place] [address] 960205 05/04/2024 2:00 PM CDT Virtual Visit [address] [phone] Lissa White PA-C 500 [place] [address] 05/06/2024 2:00 PM CDT Office Visit [address] [phone] Lissa White PA-C 500 [place], [place] 629825 05/10/2024 8:00 AM CDT Office Visit [facility] Hepatology [address] [phone] Kylee Fu MD [address] [place] [address] 588215 08/23/2024 10:30 AM THERAPEUTIC RECREATION ASSISTANT Office Visit [facility] Transplant [address] [phone] Georgette Velez MD [address] [place] [address] 670975 documented as of this encounter Visit Diagnoses Not on filedocumented in this encounter Care Teams Ross Lift Operator Relationship Specialty Start Date End Date No Ref-Primary, Physician PCP - General 07/20/23 01/04/24 Georgette Velez MD [address] [place] [address] Assigned Nephrology Provider 08/29/23 01/25/24 Ely Galvez MD [address] [address] Hospitalist Endocrinology, Diabetes, and Metabolism 09/10/23 01/04/24 Lissa White PA-C [address] [place] [address] 11633 Physician Wafer Fabrication Operator Endocrinology, Diabetes, and Metabolism 01/05/24 documented as of this encounter
--- OUTSIDE RECORDS SUMMARY | 2024-03-17 16:18 | XMS_ITS | Encounter Summary ---
Author Organization [place] Address [address] [place] [address] Care Team Providers Care Special Education Bus Driver Name Role Phone No Ref-Primary, Physician Primary Care Provider Georgette Velez MD Unavailable [phone] Ely Galvez MD Unavailable [phone] Lissa White PA-C Unavailable Eriberto Romano MD Unavailable William Spain MD Unavailable Encounter Details Date Type Department Care Team (Late st Contact Info) Description 07/02/2023 MyC Medical Advice [facility] Transplant Clinic [address] [place] [phone] Miranda Diaz, [facility] Social History Tobacco Use Types Packs/Day Years [...] st Contact Info) Description 04/04/2024 PRE VISIT [facility] Colon and Rectal Surgery Clinic [address] [phone] Eriberto Romano MD [address] [place] [address] Previsit 04/04/2024 11:00 AM CDT Office Visit [facility] Colon and Rectal Surgery Clinic [address] [phone] Kylee Fu MD [address] [place], [place] [address] [address] [place] [address] 595045 Eriberto Roamno MD [address] [place] [address] 05/04/2024 2:00 PM CDT Virtual Visit [address] [phone] Lissa White PA-C 500 [place], [place] 410895 05/06/2024 2:00 PM CDT Office Visit [address] [phone] Lissa White PA-C 500 [place] [address] 05/10/2024 8:00 AM CDT Office Visit [facility] Hepatology Clinic [address] [phone] Kylee Fu MD [address] [place], [place] [address] [address] [place] [address] 549515 08/23/2024 10:30 AM CROP SCOUT Office Visit [facility] Transplant Clinic [address] [place] [phone] Georgette Velez MD 500 [place], [place] 117205 documented as of this encounter Visit Diagnoses Not on filedocumented in this encounter Care Teams Special Education Bus Driver Relationship Specialty Start Date End Date No Ref-Primary, Physician PCP - General 07/20/23 01/04/24 Georgette Velez MD 500 [place], [place] 536135 Assigned Nephrology Provider 08/29/23 01/25/24 Ely Galvez MD [address] [facility] 200 [place], [place] 092667 Hospitalist Endocrinology, Diabetes, and Metabolism 09/10/23 01/04/24 Lissa White PA-C 500 [place], [place] 414145 Physician Automation Tender Endocrinology, Diabetes, and Metabolism 01/05/24 Eriberto Romano MD [address] [facility] 195 [place], [place] 0[address] Colon & Rectal 01/18/24 William Spain MD [address]17 [facility] 353 [facility] 1932 [place], [place] 0[address] Assigned Nephrology Provider 01/26/24 documented as of this encounter
--- OUTSIDE RECORDS SUMMARY | 2024-03-17 16:18 | XMS_ITS | Encounter Summary ---
Author Organization [place] Address [address] [place] [address]. [place] [address] Care Team Providers Care Button Facing Machine Operator Name Role Phone No Ref-Primary, Physician Primary Care Provider Gerogette Velez MD Unavailable [phone] Ely Galvez MD Unavailable [phone] Encounter Details Date Type Department Care Team (Late st Contact Info) Description 12/31/2023 Documentation Only [facility] - General Medicine & Pediatrics [address] [place] [address] [phone] Jennifer Serra MD [address] [place] [address] [phone] Social History Tobacco Use Types Packs/Day Years [...] PM CDT documented as of this encounter Progress Notes * Jennifer Serra MD - 12/31/2023 11:02 AM CDT Transfer Type: [facility] Transfer Triage Note Date of call: 12/31/23 Time of call: 11:02 AM Current Patient Location: [facility] Current Level of Care: Med Surg Vitals: 130/80, heart rate 84, saturating 95% on room air Diagnosis: Diverticulitis with microperforation and, C. difficile, s/p dual organ transplant Reason for requested transfer: Further diagnostic work up, management, and consultation for specialized care Isolation Needs: Enteric Care everywhere has been updated and reviewed: Yes Necessary images have been sent through PACS: Yes If patient is transferring for specialty care or specific procedure, the specialist required has participated in the transfer call and agreed with need for transfer and anticipated timeline: No [ of hepatology has been contacted directly by the referring hospital medicine physician and givenan update. Priorly, based on patient placement, Dr. Wagner and also I can see notes from my colleagueDr. Abdelrahman Graves have accepted this patient]. Transfer accepted: Yes Stability of Patient: Patient is vitally stable, with no critical labs, and will likely remain stable throughout the transfer process Is the patient appropriate for [facility]? No, What specific [facility] needs are anticipated?Transplant nephrology and hepatology Level of Care Needed: Med Surg Telemetry Needed: None Expected Time of Arrival for Transfer: greater than 24 hours Arrival Location: [facility] Recommendations for Management and Stabilization: Not needed Additional Comments: 74-year-old woman with a history of liver and kidney transplant 2017 in [place] for hepatorenal syndrome associated with hepatitis C. She has been stable on transplant meds had previously lived [facility] and recently moved to the [place], [place]. She was a first time clinic patient had a renal transplant here at the and August she was stable at that time. The patient presented to the [place] ER with abdominal pain CT scan shows significant proximal sigmoid colon diverticulitis and probably micro perforation. The patient is not septic although her white count is high. Other labs are stable. She has also been diagnosed with C. difficile. She has been accepted for transfer to the [facility] for consultation with renal and liver transplant and colorectal/transplant surgery. She is currently on Zosyn, intravenous metronidazole, and oral vancomycin. See clinic note from August 21, 2023 for transplant and general summary Jennifer Serra MD documented in this encounter Plan of Treatment Upcoming Encounters Date Type Department Care Team (Late st Contact Info) Description 04/04/2024 PRE VISIT [facility] Colon and Rectal Surgery Clinic [address] [phone] Eriberto Romano MD [address] [address] Previsit 04/04/2024 11:00 AM CDT Office Visit [facility] Colon and Rectal Surgery Clinic [address] [phone] Kylee Fu MD [address] [place] [address] Eriberto Romano MD [address] [place] [address] 05/04/2024 2:00 PM CDT Virtual Visit [address] [phone] Lissa White PA-C 500 [place], [place] 046965 05/06/2024 2:00 PM CDT Office Visit [address] [phone] Lissa White PA-C 500 [place], [place] 717045 05/10/2024 8:00 AM CDT Office Visit [facility] Hepatology Clinic [address] [phone] Kylee Fu MD [address] [place] [address] [address] [place] [address] 08/23/2024 10:30 AM RN ENDOCRINOLOGY Office Visit [facility] Transplant Clinic [address] [place] [phone] Georgette Velez MD 500 [place], [place] 922635 documented as of this encounter Visit Diagnoses Not on filedocumented in this encounter Care Teams Button Facing Machine Operator Relationship Specialty Start Date End Date No Ref-Primary, Physician PCP - General 07/20/23 01/04/24 Georgette Velez MD [address] [place] [address] Assigned Nephrology Provider 08/29/23 01/25/24 Ely Galvez MD [address] [facility] 200 [place] [address] Hospitalist Endocrinology, Diabetes, and Metabolism 09/10/23 01/04/24 documented as of this encounter
--- OUTSIDE RECORDS SUMMARY | 2024-03-17 16:18 | XMS_ITS | Encounter Summary ---
Author Organization [place] Address [address] [place] [address] Care Team Providers Care Check Processing Clerk Name Role Phone No Ref-Primary, Physician Primary Care Provider Georgette Velez MD Unavailable [phone] Ely Galvez MD Unavailable [phone] Lissa White PA-C Unavailable Eriberto Romano MD Unavailable [phone] William Spain MD Unavailable [phone] Encounter Details Date Type Department Care Team (Late st Contact Info) Description 06/23/2023 MyC Medical Advice [facility] Transplant Clinic [address] [place] [phone] Briseida Parson, RN Social History Tobacco Use Types Packs/Day Years Used Date Smoking Tobacco: Never Smokeless Tobacco: Never Comments:second hand smoke Alcohol Use Standard Drinks/Week Comments Yes 0 (1 standard drink = 0.6 oz pur e alcohol) rare PHQ-2 Answer Date Recorded PHQ-2 Score 0 05/26/2023 Sex and Gender Information Value Date Recorded Sex Assigned at Not on file Gender Identity Female 01/06/2024 12:46 PM CDT Sexual Orientation Straight 01/06/2024 12 :46 PM CDT COVID-19 Exposure Response Date Recorded In the last 10 days, have yo becca been in contact with someone who was confirmed or suspected to have Coronavirus/COVID-19? No / Unsure 05/26/2023 8:36 AM CDT documented as of this encounter Plan of Treatment Upcoming Encounters Date Type Department Care Team (Late st Contact Info) Description 04/04/2024 PRE VISIT [facility] Colon and Rectal Surgery Clinic [address] [phone] Eriberto Romano MD [address] 144015 Previsit 04/04/2024 11:00 AM CDT Office Visit [facility] Colon [facility] Rectal Surgery Clinic [address] [phone] Kylee Fu MD [address] [place] [address] 027585 Eriberto Romano MD [address] [place] [address] 930265 05/04/2024 2:00 PM CDT Virtual Visit [address] [phone] Lissa White PA-Devan 500 [place], [place] 723355 05/06/2024 2:00 PM CDT Office Visit [address] [phone] Lissa White PA-Devan 500 [place], [place] 489265 05/10/2024 8:00 AM CDT Office Visit [facility] Hepatology Clinic [address] [phone] Kylee Fu MD [address] [place], [place] [address] [address] [place] [address] 626895 08/23/2024 10:30 AM TORPEDO WORKER Office Visit [facility] Transplant Clinic [address] [place] [phone] Georgette Velez MD 500 [place], [place] 747645 documented as of this encounter Visit Diagnoses Not on filedocumented in this encounter Care Teams Check Processing Clerk Relationship Specialty Start Date End Date No Ref-Primary, Physician PCP - General 07/20/23 01/04/24 Georgette Velez MD [address] [place] [address] Assigned Nephrology Provider 08/29/23 01/25/24 Ely Galvez MD [address] [facility] 200 [place] [address] Hospitalist Endocrinology, Diabetes, and Metabolism 09/10/23 01/04/24 Lissa White PA-C [address] [place] [address] Flusher Driver Endocrinology, Diabetes, and Metabolism 01/05/24 Eriberto Romano MD 420 [facility] 195 [place], [place] 282115 Colon & Rectal 01/18/24 William Spain MD 717 [facility] 353 [facility] 1932 [place], [place] 580924 Assigned Nephrology Provider 01/26/24 documented as of this encounter
--- OUTSIDE RECORDS SUMMARY | 2024-03-17 16:18 | XMS_ITS | Encounter Summary ---
Author Organization [place] Address [address] [place] [address]. [place] [address] Care Team Providers Care Core Laying Machine Operator Name Role Phone No Ref-Primary, Physician Primary Care Provider Georgette Velez MD Unavailable [phone] Ely Galvez MD Unavailable [phone] Reason for Visit * Reason Onset Date Comments Patient currently in hospital with infection Encounter Details Date Type Department Care Team (Late st Contact Info) Description 12/31/2023 Telephone [facility] [address] [place] [address] Scarlet Cruz RN Patient currently in hospital with infection Social History Tobacco Use Types Packs/Day Years [...] Telephone Encounter - Daniela Majano RN - 12/31/2023 10:25 AM CDT Spoke with DR Fajardo. She spoke with dr Wagner and they are working on transfering patient to [facility]. * Telephone Encounter - Khari Meyer - 12/31/2023 10:07 AM CDT Patient Call: General Route to CULLED FRUIT PACKER Reason for call: Dr. Fajardo in Internal medicine for [facility] called in regards of patient is admitted and has some infections. They are looking to give update on patient but also get some insight on how to service transplant patient. More details with call back. Call back needed? Yes Return Call Needed Same as documented in contacts section When to return call?: Same day: Route High Priority documented in this encounter Plan of Treatment Upcoming Encounters Date Type Department Care Team ([facility] st Contact Info) Description 04/04/2024 PRE VISIT [facility] [address] [phone] Eriberto Romano MD [address] [place] [address] 187735 Previsit 04/04/2024 11:00 AM CDT Office Visit [facility] [address] [phone] Kylee Fu MD [address] [place] [address] [address] [place] [address] Eriberto Romano MD [address] [place] [address] 714195 05/04/2024 2:00 PM CDT Virtual Visit [address] [phone] Lissa White PA-C [address] [place] [address] 462645 05/06/2024 2:00 PM CDT Office Visit [address] [phone] Lissa White PA-C [address] [place], [place] 717355 05/10/2024 8:00 AM CDT Office Visit [facility] [address] [phone] Kylee Fu MD [address] [place] [address] 766555 08/23/2024 10:30 AM CITY COLLECTOR Office Visit [facility] [address] [phone] Georgette Velez MD [address] [place] [address] documented as of this encounter Visit Diagnoses Not on filedocumented in this encounter Care Teams Core Laying Machine Operator Relationship Specialty Start Date End Date No Ref-Primary, Physician PCP - General 07/20/23 01/04/24 Georgette Velez MD 500 [place] [address] Assigned Nephrology Provider 08/29/23 01/25/24 Ely Galvez MD [address] [phone] Hospitalist Endocrinology, Diabetes, and Metabolism 09/10/23 01/04/24 documented as of this encounter
--- OUTSIDE RECORDS SUMMARY | 2024-03-17 16:18 | XMS_ITS | Encounter Summary ---
Author Organization [place] Address [address] [place] [address] Care Team Providers Care Certified Scrub Tech Name Role Phone No Ref-Primary, Physician Primary Care Provider Georgette Velez MD Unavailable [phone] Ely Galvez MD Unavailable [phone] Lissa White PA-C Unavailable Eriberto Romano MD Unavailable William Spain MD Unavailable [phone] Encounter Details Date Type Department Care Team (Late st Contact Info) Description 09/16/[address] [facility] [address] [place] [address] Briseida Parson, RN Social History Tobacco [...] (Late Contact Info) Description 04/04/[address] [facility] [address] [phone] Eriberto Romano MD [address] [place] [address] Previsit 04/04/2024 11:00 AM CDT Office [facility] [address] [phone] Kylee Fu MD [address] [place] [address] 494565 Eriberto Romano MD [address] [place] [address] 05/04/2024 2:00 PM CDT Virtual Visit [address] [phone] Lissa White PA-C 500 [place] [address] 05/06/2024 2:00 PM CDT Office Visit [address] [phone] Lissa White PA-C 500 [place] [address] 05/10/2024 8:00 AM CDT Office Visit [facility] [address] [phone] Kylee Fu MD [address] [place] [address] 08/23/2024 10:30 AM HARBOR PATROL POLICE Office Visit [facility] [address] [place] [phone] Georgette Velez MD [address] [place], [place] 377875 documented as of this encounter Visit Diagnoses Not on filedocumented in this encounter Care Teams Certified Scrub Tech Relationship Specialty Start Date End Date No Ref-Primary, Physician PCP - General 07/20/23 01/04/24 Georgette Velez MD [address] [place], [place] 394065 Assigned Nephrology Provider 08/29/23 01/25/24 Ely Galvez MD 303 E [facility] 200 [place], [place] 387457 Hospitalist Endocrinology, Diabetes, and Metabolism 09/10/23 01/04/24 Lissa White PA-C 500 [place], [place] 096765 Physician Cold Mill Operator Endocrinology, Diabetes, and Metabolism 01/05/24 Eriberto Romano MD 420 [facility] 195 [place], [place] 772315 Colon & Rectal 01/18/24 William Spain MD 717 [facility] 353 [facility] 1932 [place], [place] 046974 Assigned Nephrology Provider 01/26/24 documented as of this encounter
--- OUTSIDE RECORDS SUMMARY | 2024-03-17 16:18 | XMS_ITS | Encounter Summary ---
Author Organization [place] Address [address] [place] [address] Care Team Providers Care College Or University Department Head Name Role Phone Georgette Velez MD Unavailable [phone] Lissa White PA-C Unavailable Encounter Details Date Type Department Care Team (Latest Contact Info) Description 01/11/2024 Travel Social History Tobacco Use Types Packs/Day [...] st Contact Info) Description 04/04/2024 PRE VISIT [facility] [address] [phone] Eriberto Romano MD [address] [place] [address] 177015 Previsit 04/04/2024 11:00 AM CDT Office Visit [facility] [address] [phone] Kylee Fu MD 516 [facility] 2A [place], [place] 901765 Eriberto Romano MD 420 [facility] 195 [place], [place] 440135 05/04/2024 2:00 PM CDT Virtual Visit [address] [phone] Lissa White PA-C 500 [place], [place] 639105 05/06/2024 2:00 PM CDT Office Visit [address] [phone] Lissa White PA-C [address] [place] [address] 044045 05/10/2024 8:00 AM CDT Office Visit [facility] [address] [phone] Kylee Fu MD 6 [facility] 2A [place], [place] 826685 08/23/2024 10:30 AM DIRECTOR CORPORATE SALES Office Visit [facility] [address] [place] [address] [phone] Georgette Velez MD 500 [place], [place] 714195 documented as of this encounter Visit Diagnoses Not on filedocumented in this encounter Care Teams College Or University Department Head Relationship Specialty Start Date End Date Georgette Velez MD [address] [place] [address] Assigned Nephrology Provider 08/29/23 01/25/24 Lissa White PA-C 500 [place] [address] Physician Welder Operator Endocrinology, Diabetes, and Metabolism 01/05/24 documented as of this encounter
--- OUTSIDE RECORDS SUMMARY | 2024-03-17 16:18 | XMS_ITS | Encounter Summary ---
Author Organization [place] Address [address] [place] [address] Care Team Providers Care Cleaning Technician Name Role Phone Georgette Velez MD Unavailable [phone] Lissa White PA-C Unavailable Reason for Visit * Reason Comments Video Visit Recheck Encounter Details Date Type Department Care Team ([facility] st Contact Info) Description 01/11/2024 10:00 AM CDT Virtual Visit [facility] [address] [phone] Kylee Fu MD [address] [place] [address] Liver replaced by transplant (H) Social History Tobacco Use Types Packs/Day Years [...] Sign Reading Time Taken Comments Blood Pressure - - Pulse - - Temperature - - Respiratory Rate - - Oxygen Saturation - - Inhaled Oxygen Concentration - - Weight 61.2 kg (135 lb) 01/11/2024 9:47 AM CDT Height 160 cm (5' 3) 01/11/2024 9:47 AM CDT Body Mass Index 23.91 01/11/2024 9:47 AM CDT documented in this encounter Progress Notes * Kylee Fu MD - 01/11/2024 10:00 AM CDT [facility] TRANS[facility] FOLLOW UP VIDEO VISIT A/P Ms. Almeida is a 73 Y F s/p SLK 12/30/16 at [facility] for HCV. Transferred her care to [facility] Fall 2022. Admitted 12/28-01/04/24 at [facility] for sigmoid diverticulitis with microperforation, and Cdiff. Perforated diverticulitis s/p admission, managed conservatively. On antibiotics IV for another day.No pain and fever since discharge. Will need a colonoscopy. Will have her see colorectal surgery electively. Cdiff On vancomycin, just had increased dose to 250 qid. Stool frequency better today. Continue vanco and reassess progress through the week. Encouraged her to push fluids. Will get labs tomorrow AM prior to visit with Dr. Spain IS MMF tac and pred. No tac level for > 1y at time of transfer of care. Last level on file today07/09/23 (5.1) Continue monitoring labs and IS level every 3 months to assess for appropriate dosingand side effects from IS including ASPEN, pancytopenia, hyperkalemia, hypomagnesemia. She has not routinely been getting labs. Graft function no updated labs. KT She will see transplant nephrology tomorrow DM on insulin. Intends to establish with an remote control assembler HCM She needs to establish with a PCP. Kylee Fu MD Hepatology/ Liver Transplant [facility] SUBJECTIVE Ms. Almeida is a 73 Y F s/p SLK 12/2016 at [facility] for HCV with a [id number] biliary reconstruction. She then moved to [place] and received care at [place]. Last visit was 02/2022. She then moved to [place] in 2022 and established care here Fall 2022. She was admitted at [facility] 12/28-01/04/24 for sigmoid diverticulitis with microperforation and Cdiff. This was managed conservatively. She is on vancomycin 125 PO qid and is going in daily for IV abx. She has 1 day left of IV antibx and she stated they increased vanco to 250 qid. She states is doing ok since discharge. Yesterday she vomited. None today. Appetite is getting a little better. She is forcing herself to drink fluids. Some cramping on occasion prior to BM. No fever for a week. Yesterday she had about 15 stools and today has only had 1. Post op Complicated by ASPEN requiring UNION CONTRACT REPRESENTATIVE. In 01/2018, admitted for polynephritis with UTI treated with abx HCV treated with Epclusa + RBV 400mg x 12 weeks (03/03/2017-05/26/2017) with SVR. EXPLANT: no records IS: Prograf 11/05, MMF 100 mg BID, pred 5mg. LABS: Last labs are 5 months ago (12/30/22). LFTs normal. Creat 1 REJECTION: None. BILIARY ISSUES: None STENT: unknown KIDNEY FUNCTION: Creatinine Date Value Ref Range Status 07/09/2023 1.09 (H) 0.51 - 0.95 mg/dL Final 07/07/2008 0.67 @ mg/dL BP: Good. No meds. PREV: UTD on screening Colonoscopy 2021 Mammogram 2021 Pap/pelvic pt cannot recall Dermatology has not seen Flu shot gets it yearly COVID vaccine x 3 DISEASE RECURRENCE: HCV cleared OTHER ISSUES: DM Hospitalization 11/2020 for management of T2DM with DKA, pseudohyponatremia, hypokalemia and hypomagnesemia. Takes insulin and states DM is under control NEW ISSUES: L side pain, as above SOC: identifies ex as secondary contact. ROS: 10 point ROS neg other than the symptoms noted above in the HPI. Exam Gen Alert pleasant NAD Resp No difficulty breathing. No cough Skin No Jaundice Eyes No icterus Neuro JON MSK no muscle wasting Psyche Pleasant, appropriate. Well groomed. Catarina Almeida is a 73 year old female who is being evaluated via a billable video visit. Video-Visit Details Type of service: Video Visit Video Start Time: 1005 Video End Time: 1022 Originating Location (pt. Location):home Distant Location (provider location): [facility] [place] Platform used for Video Visit: [employer] . documented in this encounter Nursing Notes * Brigitte Marshall - 01/11/2024 10:00 AM CDT Is the patient currently in the state of [place]? YES Visit mode:VIDEO If the visit is dropped, the patient can be reconnected by: VIDEO VISIT: Text to cell phone: Telephone Information: Will anyone else be joining the visit? NO (If patient encounters technical issues they should call [phone] :[phone]) How would you like to obtain your AVS? MyChart Are changes needed to the allergy or medication list? No Are refills needed on medications prescribed by this physician? YES Reason for visit: Video Visit (Recheck) Brigitte Marshall VVF documented in this encounter Plan of Treatment Upcoming Encounters Date Type Department Care Team (Late st Contact Info) Description 04/04/[address] [facility] [address] [phone] Eriberto Romano MD 420 [facility] 195 [place], [place] 17[address]25 Previsit 04/04/2024 11:00 AM CDT Office Visit [facility] [address] [phone] Kylee Fu MD 516 [facility] [address] [place], [place] 320735 Eriberto Romano MD [address] [address] 05/04/2024 2:00 PM CDT Virtual Visit [address] [phone] Lissa White PA-C 500 [place], [place] 253015 05/06/2024 2:00 PM CDT Office Visit [address] [phone] Lissa White PA-C [address] [place] [address] 05/10/2024 8:00 AM CDT Office Visit [facility] [address] [phone] Kylee Fu MD [address] [place] [address] 315875 08/23/2024 10:30 AM BINITROTOLUENE OPERATOR Office Visit [facility] [address] [place] [address] [phone] Georgette Velez MD [address] [place] [address] documented as of this encounter Visit Diagnoses Diagnosis Liver replaced by transplant (H) Liver replaced by transplant documented in this encounter Care Teams Cleaning Technician Relationship Specialty Start Date End Date Georgette Velez MD [address] [place] [address] Assigned Nephrology Provider 08/29/23 01/25/24 Lissa White PA-C NPI: [id number] [place] [address] Physician Production Support Engineer Endocrinology, Diabetes, and Metabolism 01/05/24 documented as of this encounter
--- OUTSIDE RECORDS SUMMARY | 2024-03-17 16:18 | XMS_ITS | Encounter Summary ---
Author Organization [place] Address [address] [place] [address] Care Team Providers Care Phone Specialist Name Role Phone No Ref-Primary, Physician Primary Care Provider Georgette Velez MD Unavailable [phone] Ely Galvez MD Unavailable [phone] Lissa White PA-C Unavailable Eriberto Romano MD Unavailable William Spain MD Unavailable [phone] Encounter Details Date Type Department Care Team (Late st Contact Info) Description 01/01/2024 MyC Medical Advice [facility] [address] [phone] Arelis Humphrey CMA Social History Tobacco Use Types Packs/Day Years [...] st Contact Info) Description 04/04/2024 PRE VISIT [facility] [address] [phone] Eriberto Romano MD [address] [place] [address] Previsit 04/04/2024 11:00 AM CDT Office Visit [facility] [address] [phone] Kylee Fu MD [address] [place] [address] 381425 Eriberto Romano MD [address] [place] [address] 05/04/2024 2:00 PM CDT Virtual Visit [address] [phone] Lissa White PA-C 500 [place] [address] 05/06/2024 2:00 PM CDT Office Visit [address] [phone] Lissa White PA-C 500 [place] [address] 05/10/2024 8:00 AM CDT Office Visit [facility] [address] [phone] Kylee Fu MD [address] [place], [place] [address] [address] [place] [address] 08/23/2024 10:30 AM MONKEY BREEDER Office Visit [facility] 909 [place] [phone] Georgette Velez MD 500 [place], [place] 564845 documented as of this encounter Visit Diagnoses Not on filedocumented in this encounter Care Teams Phone Specialist Relationship Specialty Start Date End Date No Ref-Primary, Physician PCP - General 07/20/23 01/04/24 Georgette Velez MD 500 [place], [place] 114995 Assigned Nephrology Provider 08/29/23 01/25/24 Ely Galvez MD 303 E [facility] 200 [place] [address] Hospitalist Endocrinology, Diabetes, and Metabolism 09/10/23 01/04/24 Lissa White PA-C 500 [place], [place] [address] Physician Rn Psych Endocrinology, Diabetes, and Metabolism 01/05/24 Eriberto Romano MD 420 [facility] 195 [place], [place] 214695 Colon & Rectal 01/18/24 William Spain MD 717 [facility] 353 [facility] 1932 [place], [place] 8105[address] Assigned Nephrology Provider 01/26/24 documented as of this encounter
--- OUTSIDE RECORDS SUMMARY | 2024-03-17 16:18 | XMS_ITS | Encounter Summary ---
Author Organization [place] Address [address] [place] [address] Care Team Providers Care Beef Skinner Name Role Phone No Ref-Primary, Physician Primary Care Provider Georgette Velez MD Unavailable [phone] Ely Galvez MD Unavailable [phone] Lissa White PA-C Unavailable Eriberto Romano MD Unavailable William Spain MD Unavailable [phone] Encounter Details Date Type Department Care Team (Late st Contact Info) Description 08/21/2023 MyC Medical Advice [facility] 9 [place] [address] Scarlet Cruz RN Social History [...] [facility] [address] [phone] Eriberto Romano MD [address] [place] [address] Previsit 04/04/2024 11:00 AM CDT Office Visit [facility] [address] [phone] Kylee Fu MD [address] [place] [address] 598225 Eriberto Romano MD [address] [place] [address] 05/04/2024 2:00 PM CDT Virtual Visit [address] [phone] Lissa White PA-C 500 [place] [address] 05/06/2024 2:00 PM CDT Office Visit [address] [phone] Lissa White PA-C 500 [place] [address] 05/10/2024 8:00 AM CDT Office Visit [facility] [address] [phone] Kylee Fu MD [address] [place], [place] [address] [address] [place] [address] 08/23/2024 10:30 AM FASHION DIRECTOR PARTY PLAN SALES Office Visit [facility] 909 [place] [phone] Georgette Velez MD 500 [place], [place] 752385 documented as of this encounter Visit Diagnoses Not on filedocumented in this encounter Care Teams Beef Skinner Relationship Specialty Start Date End Date No Ref-Primary, Physician PCP - General 07/20/23 01/04/24 Georgette Velez MD 500 [place], [place] 739225 Assigned Nephrology Provider 08/29/23 01/25/24 Ely Galvez MD 303 E [facility] 200 [place] [address] Hospitalist Endocrinology, Diabetes, and Metabolism 09/10/23 01/04/24 Lissa White PA-C 500 [place], [place] 055095 Physician Top Collar Maker Endocrinology, Diabetes, and Metabolism 01/05/24 Eriberto Romano MD 420 [facility] 195 [place], [place] 666795 Colon & Rectal 01/18/24 William Spain MD 717 [facility] 353 [facility] 1932 [place], [place] 727[address] Assigned Nephrology Provider 01/26/24 documented as of this encounter
--- OUTSIDE RECORDS SUMMARY | 2024-03-17 16:18 | XMS_ITS | Encounter Summary ---
Author Organization [place] Address [address] [place] [address] Care Team Providers Care Librarian Assistant Name Role Phone No Ref-Primary, Physician Primary Care Provider Georgette Velez MD Unavailable [phone] Ely Galvez MD Unavailable [phone] Lissa White PA-C Unavailable Eriberto Romano MD Unavailable William Spain MD Unavailable [phone] Reason for Visit * Reason Onset Date Comments Appointment 03/24/2023 Patient transfer ring Care for Liver and Kidney Transplant. Encounter Details Date Type Department Care Team (Late st Contact Info) Description 03/24/2023 [facility] [address] [place] [phone] None Appointment (Patient transferring Care for Liver and Kidney Transplant. ) Social History Tobacco Use Types Packs/Day Years Used Date Smoking Tobacco: Never Comments:second hand smoke Alcohol Use Standard Drinks/Week Comments No 0 (1 standard drink = 0.6 oz pur e alcohol) occaisonal Sex and Gender Information Value Date Recorded Sex Assigned at Not on file Gender Identity Female 01/06/2024 12:46 PM CDT Sexual Orientation Straight 01/06/2024 12 :46 PM CDT documented as of this encounter Miscellaneous Notes * Telephone Encounter - Lisa Kim - 03/24/2023 4:10 PM CDT [facility] Phone Message May a detailed message be left on voicemail: yes Reason for Call: Appointment Intake Referring Provider Name: Dr. Velez Diagnosis and/or Symptoms: Transfer of Care for Kidney and Liver Transplant - [facility]. Sending encounter message per guideline instructions for review and follow-up with patient for scheduling. Thank you! Action Taken: Message routed to: [facility] SOT Travel Screening: Not Applicable documented in this encounter Plan of Treatment Upcoming Encounters Date Type Department Care Team ([facility] st Contact Info) Description 04/04/2024 PRE VISIT [facility] Colon [facility] Rectal Surgery [address] [phone] Eriberto Romano MD [address] [place] [address] [phone] Previsit 04/04/2024 11:00 AM CDT Office Visit [facility] Surgery [address] [phone] Kylee Fu MD [address] [place] [address] 2A [place] [address] Eriberto Romano MD [address] [place] [address] 05/04/2024 2:00 PM CDT Virtual Visit [address] [phone] Lissa White PA-C [address] [place], [place] 86[address] 05/06/2024 2:00 PM CDT Office Visit [address] [phone] Lissa White PA-C [address] [place], [place] 7923[address] 05/10/2024 8:00 AM CDT Office Visit [facility] [address] [phone] Kylee Fu MD [address] 562465 08/23/2024 10:30 AM POWER PLANT ELECTRICIAN Office Visit [facility] [address] [place] [phone] Georgette Velez MD [address] [place], [place] 853725 documented as of this encounter Visit Diagnoses Not on filedocumented in this encounter Care Teams Librarian Assistant Relationship Specialty Start Date End Date No Ref-Primary, Physician PCP - General 07/20/23 01/04/24 Georgette Velez MD [address] [place] [address] [phone] Assigned Nephrology Provider 08/29/23 01/25/24 Ely Galvez MD 303 E [facility] 200 [place] [address] Hospitalist Endocrinology, Diabetes, and Metabolism 09/10/23 01/04/24 Lissa White PA-C [address] [place] [address] 917005 Physician Front Office Medical Assistant Endocrinology, Diabetes, and Metabolism 01/05/24 Eriberto Romano MD [address] [place] [address] 195 [place], [place] 761065 Colon & Rectal 01/18/24 William Spain MD [address] [place] [address] Assigned Nephrology Provider 01/26/24 documented as of this encounter
--- OUTSIDE RECORDS SUMMARY | 2024-03-17 16:18 | XMS_ITS | Encounter Summary ---
Author Organization [facility] Address [address] [place] [address] Care Team Providers Care Coal Yard Supervisor Name Role Phone No Ref-Primary, Physician Primary Care Provider Georgette Velez MD Unavailable Ely Galvez MD Unavailable [phone] Lissa White PA-C Unavailable Eriberto Romano MD Unavailable William Spain MD Unavailable Reason for Visit * Reason Onset Date Comments Appointment 06/04/2023 Encounter Details Date Type Department Care Team (Late st Contact Info) Description 06/04/2023 Telephone [facility] [address] [place] [address] Kylee Fu MD [address] [place] [address] Appointment Social History Tobacco Use Types Packs/Day Years [...] In the last 10 days, have yo u been in contact with someone who was confirmed or suspected to have Coronavirus/COVID-19? No / Unsure 05/26/2023 8:36 AM CDT documented as of this encounter Miscellaneous Notes * Telephone Encounter - Aslhyn Malaika - 06/04/2023 10:10 AM CDT [facility] Phone Message May a detailed message be left on voicemail: yes Reason for Call: Other: Called patient to scheduled with Dr. Kylee Fu. Order request date 05/05/2024. Patient was busy and will call back later to schedule. Call back number given. Action Taken: Message routed to: Other: SOT Travel Screening: Not Applicable documented in this encounter Plan of Treatment Upcoming Encounters Date Type Department Care Team ([facility] Contact Info) Description 04/04/2024 PRE VISIT [facility] [address] [phone] Eriberto Romano MD [address] [place] [address] 489375 Previsit 04/04/2024 11:00 AM CDT Office Visit [facility] [address] [phone] Kylee Fu MD [address] [place] [address] [address] [place] [address] Eriberto Romano MD [address] [place] [address] 157975 05/04/2024 2:00 PM CDT Virtual Visit [address] [phone] Lissa White PA-C 500 [place] [address] 05/06/2024 2:00 PM CDT Office Visit [address] [phone] Lissa White PA-C 500 [place] [address] 05/10/2024 8:00 AM CDT Office Visit [facility] [address] [phone] Kylee Fu MD [address] [place] [address] 806255 08/23/2024 10:30 AM PIPE STEM SAWYER Office Visit [facility] [address] [place] [phone] Georgette Velez MD [address] [place] [address] 730375 documented as of this encounter Visit Diagnoses Not on filedocumented in this encounter Care Teams Coal Yard Supervisor Relationship Specialty Start Date End Date No Ref-Primary, Physician PCP - General 07/20/23 01/04/24 Georgette Velez MD [address] [place] [address] Assigned Nephrology Provider 08/29/23 01/25/24 Ely Galvez MD [address] [facility] 200 [place] [address] Hospitalist Endocrinology, Diabetes, and Metabolism 09/10/23 01/04/24 Lissa White PA-C [address] [place] [address] Physician Executive Casino Host Endocrinology, Diabetes, and Metabolism 01/05/24 Eriberto Romano MD 420 [facility] 195 [place] [address] Colon & Rectal 01/18/24 William Spain MD 717 [facility] [address] [place] [address] Assigned Nephrology Provider 01/26/24 documented as of this encounter
--- OUTSIDE RECORDS SUMMARY | 2024-03-17 16:18 | XMS_ITS | Encounter Summary ---
Author Organization [facility] Address [address] [place] [address] Care Team Providers Care Management Department Chair Name Role Phone No Ref-Primary, Physician Primary Care Provider Georgette Velez MD Unavailable [phone] Ely Galvez MD Unavailable [phone] Lissa White PA-C Unavailable Eriberto Romano MD Unavailable William Spain MD Unavailable [phone] Encounter Details Date Type Department Care Team (Late st Contact Info) Description 01/04/2024 MyC Medical Advice [facility] 9 [place] [address] Scarlet Cruz RN Social History [...] st Contact Info) Description 04/04/2024 PRE VISIT [facility] [address] [phone] Eriberto Romano MD [address] [place] [address] Previsit 04/04/2024 11:00 AM CDT Office Visit [facility] [address] [phone] Kylee Fu MD [address] [place] [address] 499015 Eriberto Romano MD [address] [place] [address] 05/04/2024 2:00 PM CDT Virtual Visit [address] [phone] Lissa White PA-C 500 [place] [address] 05/06/2024 2:00 PM CDT Office Visit [address] [phone] Lissa White PA-C 500 [place] [address] 05/10/2024 8:00 AM CDT Office Visit [facility] [address] [phone] Kylee Fu MD [address] [place], [place] [address] [address] [place] [address] 08/23/2024 10:30 AM HAND SPRAYER Office Visit [facility] 909 [place] [phone] Georgette Velez MD [address] [place], [place] 800325 documented as of this encounter Visit Diagnoses Not on filedocumented in this encounter Care Teams Management Department Chair Relationship Specialty Start Date End Date No Ref-Primary, Physician PCP - General 07/20/23 01/04/24 Georgette Velez MD [address] [place], [place] 334115 Assigned Nephrology Provider 08/29/23 01/25/24 Ely Galvez MD 303 [address] [facility] 200 [place] [address] Hospitalist Endocrinology, Diabetes, and Metabolism 09/10/23 01/04/24 Lissa White PA-C [address] [place], [place] 376625 Physician Pharmacy Aide Endocrinology, Diabetes, and Metabolism 01/05/24 Eriberto Romano MD 420 [facility] 195 [place], [place] 271555 Colon & Rectal 01/18/24 William Spain MD 717 [facility] 353 [facility] 1932 [place], [place] [address] Assigned Nephrology Provider 01/26/24 documented as of this encounter
--- OUTSIDE RECORDS SUMMARY | 2024-03-17 16:18 | XMS_ITS | Encounter Summary ---
Author Organization [facility] Address [address] [place] [address] Care Team Providers Care Information Clerk Automobile Club Name Role Phone No Ref-Primary, Physician Primary Care Provider Georgette Velez MD Unavailable [phone] Ely Galvez MD Unavailable [phone] Lissa White PA-C Unavailable Eriberto Romano MD Unavailable [phone] William Spain MD Unavailable [phone] Encounter Details Date Type Department Care Team (Late st Contact Info) Description 07/10/2023 MyC Medical Advice [address] [phone] Lola Mane, GROUP HOME COUNSELOR Social History Tobacco Use Types Packs/Day Years [...] suspected to have Coronavirus/COVID-19? No / Unsure 07/09/2023 10:32 AM CDT documented as of this encounter Plan of Treatment Upcoming Encounters Date Type Department Care Team (Late st Contact Info) Description 04/04/2024 PRE VISIT [facility] [address] [phone] Eriberto Romano MD [address] [phone] Previsit 04/04/2024 11:00 AM CDT Office Visit [facility] [address] [phone] Kylee Fu MD [address] 355285 Eriberto Romano MD [address] [address] 05/04/2024 2:00 PM CDT Virtual Visit [address] [phone] Lissa White PA-C 500 [place], [place] 445575 05/06/2024 2:00 PM CDT Office Visit [address] [phone] Lissa White PA-C 500 [place], [place] 498385 05/10/2024 8:00 AM CDT Office Visit [facility] [address] [phone] Kylee Fu MD 516 [facility] 2[address] [place] [address] 08/23/2024 10:30 AM GERIATRIC NURSE PRACTITIONER Office Visit [facility] 909 [place] [phone] Georgette Velez MD 500 [place], [place] 223045 documented as of this encounter Visit Diagnoses Not on filedocumented in this encounter Care Teams Information Clerk Automobile Club Relationship Specialty Start Date End Date No Ref-Primary, Physician PCP - General 07/20/23 01/04/24 Georgette Velez MD 500 [place], [place] 271265 Assigned Nephrology Provider 08/29/23 01/25/24 Ely Galvez MD 303 E [facility] 200 [place] [address] Hospitalist Endocrinology, Diabetes, and Metabolism 09/10/23 01/04/24 Lissa White PA-C 500 [place] [address] Physician Dry Wall Nailer Endocrinology, Diabetes, and Metabolism 01/05/24 Eriberto Romano MD 420 [facility] 195 [place] [address] Colon & Rectal 01/18/24 William Spain MD 717 [facility] 353 [facility] 1932 [place] [address] Assigned Nephrology Provider 01/26/24 documented as of this encounter
--- OUTSIDE RECORDS SUMMARY | 2024-03-17 16:18 | XMS_ITS | Encounter Summary ---
Author Organization [facility] Address [address] [place] [address] Care Team Providers Care Insole Presser Name Role Phone No Ref-Primary, Physician Primary Care Provider Georgette Velez MD Unavailable [phone] Ely Galvez MD Unavailable [phone] Encounter Details Date Type Department Care Team (Late st Contact Info) Description 12/29/2023 Telephone [facility] 9 [place] [address] Scarlet Cruz RN Social History [...] Telephone Encounter - Scarlet Cruz RN - 12/29/2023 2:03 PM CDT Per Roberth she wants to speak with the yard caller Transplant provider. Number to Provider to Provider line given. documented in this encounter Plan of Treatment Upcoming Encounters Date Type Department Care Team (Late st Contact Info) Description 04/04/2024 PRE VISIT [facility] [address] [phone] Eriberto Romano MD [address] [place] [address] 501005 Previsit 04/04/2024 11:00 AM CDT Office Visit [facility] [address] [phone] Kylee Fu MD [address] [place] [address] 625335 Eriberto Romano MD [address] [place] [address] [phone] 05/04/2024 2:00 PM CDT Virtual Visit [address] [phone] Lissa White PA-Devan 500 [place], [place] 974525 05/06/2024 2:00 PM CDT Office Visit [address] [phone] Lissa White PA-Devan 500 [place], [place] [address] 05/10/2024 8:00 AM CDT Office Visit [facility] [address] [phone] Kylee Fu MD [address] [place] [address] 08/23/2024 10:30 AM DATA VISUALIZATION DEVELOPER Office Visit [facility] 9[address] [place] [phone] Georgette Velez MD 500 [place] [address] documented as of this encounter Visit Diagnoses Not on filedocumented in this encounter Care Teams Insole Presser Relationship Specialty Start Date End Date No Ref-Primary, Physician PCP - General 07/20/23 01/04/24 Georgette Velez MD 500 [place] [address] Assigned Nephrology Provider 08/29/23 01/25/24 Ely Galvez MD [address] [facility] 200 [place] [address] Hospitalist Endocrinology, Diabetes, and Metabolism 09/10/23 01/04/24 documented as of this encounter
--- OUTSIDE RECORDS SUMMARY | 2024-03-17 16:18 | XMS_ITS ---
Author Organization [facility] Address [address] [place] [address]. [place] [address] Care Team Providers Care Patient Financial Services Coordinator Name Role Phone Lissa White PA-C Unavailable Eriberto Romano MD Unavailable [phone] William Spain MD Unavailable [phone] Transplant Episode Kidney, Liver Recipient [facility] ([place], [place]) - [facility] Transplanted on 12/30/2016 Marked as Active Follow-up on 05/26/2023 Coordinators Name Role Phone Fax Email Daniela Majano RN Liver Coordinator N/A N/A Scarlet Cruz RN Kidney Coordinator N/A N/A [email or web address] Transplanted Elsewhere: [facility] ([place], [place]) - [facility] Coordinator: Phone: Fax: Infection History Noted Survival Infection Treatment Organism Resolved 01/24/2024 7 years Recurrent UTI (u rinary tract infection) Care Team Name Role Phone Fax Email Daniela Majano RN Liver Coordinator N/A N/A [email or web address] wally Cruz RN Kidney Coordinator N/A N/A [email or web address] wally Fu MD Self Sealing Fuel Tank Repairer [phone] [email or web address] Post-Transplant Pre-Transplant Transplanted: 12/30/2016
--- OUTSIDE RECORDS SUMMARY | 2024-03-17 16:18 | XMS_ITS | Encounter Summary ---
Author Organization [facility] Address [address] [place] [address] Care Team Providers Care Pharmaceutical Process Engineer Name Role Phone No Ref-Primary, Physician Primary Care Provider Georgette Velez MD Unavailable [phone] Ely Galvez MD Unavailable [phone] Reason for Visit * Reason Onset Date Comments HOSP D/C 01/01/2024 Encounter Details Date Type Department Care Team (Late st Contact Info) Description 01/01/2024 Telephone [facility] [address] [place] [address] [facility] [address] [place], [place] [phone] HOSP D/C Social History Tobacco Use Types Packs/Day Years [...] Encounter - Scarlet Cruz RN - 01/04/2024 9:27 [address] CDT [address] back Dr Zimmerman who reports patient had perforated sigmoid/diverticulitis. Attempted transfer to [facility], possible surgery. However, no beds available. Patient improved and will be discharging today on: IV Ertapenem (ordered til 01/08/24) 10 day course Oral Vanco (10 day course but ordered 10 more days,til around 01/13/24) --- developed cdiff Requesting patient to be seen this week to evaluate need for surgery and manage outpatient antibiotics. Message sent to Maggie Urbano * Telephone Encounter - Marnie Yates - 01/04/2024 8:15 AM CDT Patient Call: General Route to STUDIO CAMERA OPERATOR Reason for call: Dr. Zimmerman from [facility], would like help with a discharge plan for patient. Stated he plans on Discharging patient today, on antibiotic's and would like for patient to get in this week for a follow up with the Transplant Clinic, and would like to be called on his Cellphone number provided. Call back needed? Yes Return Call Needed Same as documented in contacts section When to return call?: Same day: Route High Priority * Telephone Encounter - Hafsa Tripp RN - 01/01/2024 12:10 PM CDT Images from the original note were not included. Received the following message: Reason for Call: Other: Hafsa calling for Dr.Stephanie Fajardo at [facility]. She is wanting to schedule patient to see for a hospital follow up. I advised her that I had no orders to schedule, she would like a call back to discuss getting orders placed for patient to get her seen next week. They are requesting preferred but any MD will do. Phone call to [facility] & spoke with bedside RUIZ Pereyra as well as Dr. Fajardo, hospitalist caring for Catarina. Per Dr. Fajardo, pt has diverticulitis/colitis/c.diff - pt is improving & may discharge home over the weekend. Dr. Fajardo would like pt to have follow-up within transplant after hospital discharge. Dr. Fajardo indicated she had spoken with Dr. Wagner (on-call transplant automobile assembler) who advised follow-up as well. Pt has history of kidney-liver transplant. Collaborated with RUIZ Majano (pt's liver tx coordinator) - per Dr. Wagner pt should have follow-up with Dr. Fu & scheduling request was placed. was messaged regarding follow-up, awaiting response. Return call to [facility] to update them on the plan for follow-up post-hospitalization. They had no additional questions. ADDENDUM: Georgette Velez MD Lynch, Rita A, RN We can see her on the same day of her liver transplant if there are any openings. Thank you Georgette Will place scheduling request. [facility] bedside RUIZ Pereyra updated by telephone. * Addendum Note - Hafsa Tripp RN - 01/01/2024 12:10 PM CDTAddended by: HAFSA TRIPP on: 01/01/2024 01:07 PM Modules accepted: Orders documented in this encounter Plan of Treatment Upcoming Encounters Date Type Department Care Team (Late st Contact Info) Description 04/04/2024 PRE VISIT [facility] [address] [phone] Eriberto Romano MD [address] [place] [address] 134[address] Previsit 04/04/2024 11:00 AM CDT Office Visit [facility] [address] [phone] Kylee Fu MD 516 [facility] 2A [place] [address] Eriberto Romano MD 420 [facility] 195 [place] [address] 05/04/2024 2:00 PM CDT Virtual Visit [address] [phone] Lissa White PA-C 500 [place], [place] 733855 05/06/2024 2:00 PM CDT Office Visit [address] [phone] Lissa White PA-C 500 [place], [place] 707415 05/10/2024 8:00 AM CDT Office Visit [facility] [address] [phone] Kylee Fu MD [address] [place] [address] 2[address] [place] [address] 08/23/2024 10:30 AM PHOTO TECHNICIAN Office Visit [facility] [address] [place] [address] [phone] Georgette Velez MD 500 [place], [place] 188885 documented as of this encounter Visit Diagnoses Diagnosis Kidney replaced by transplant- Primary documented in this encounter Care Teams Pharmaceutical Process Engineer Relationship Specialty Start Date End Date No Ref-Primary, Physician PCP - General 07/20/23 01/04/24 Georgette Velez MD 500 [place] [address] Assigned Nephrology Provider 08/29/23 01/25/24 Ely Galvez MD [address] [address] Hospitalist Endocrinology, Diabetes, and Metabolism 09/10/23 01/04/24 documented as of this encounter
--- OUTSIDE RECORDS SUMMARY | 2024-03-17 16:18 | XMS_ITS | Encounter Summary ---
Author Organization [place] Address [address] [place] [address] Care Team Providers Care Managed Care Director Name Role Phone Georgette Velez MD Unavailable [phone] Lissa White PA-C Unavailable Eriberto Romano MD Unavailable [phone] William Spain MD Unavailable [phone] Encounter Details Date Type Department Care Team (Late st Contact Info) Description 01/11/2024 MyC Medical Advice [address] [phone] [place], [facility] Social History Tobacco Use Types Packs/Day [...] st Contact Info) Description 04/04/2024 PRE VISIT [facility] [address] 4th [place] [address] Eriberto Romano MD 420 [facility] 195 [place] [address] Previsit 04/04/2024 11:00 AM CDT Office Visit [facility] [address] 4[address] [place] [phone] Kylee Fu MD [address] [place] [address] Eriberto Romano MD [address] [address] 05/04/2024 2:00 PM CDT Virtual Visit [address] [phone] Lissa White PA-Devan 500 [place] [address] 05/06/2024 2:00 PM CDT Office Visit [address] [phone] Lissa White PA-C [address] [place] [address] 445865 05/10/2024 8:00 AM CDT Office Visit [facility] [address] [phone] Kylee Fu MD [address] [place] [address] 262935 08/23/2024 10:30 AM SUPERINTENDENT TRANSMISSION Office Visit [facility] [address] [place] [address] [phone] Georgette Velez MD 500 [place] [address] documented as of this encounter Visit Diagnoses Not on filedocumented in this encounter Care Teams Managed Care Director Relationship Specialty Start Date End Date Georgette Velez MD 500 [place] [address] Assigned Nephrology Provider 08/29/23 01/25/24 Lissa White PA-C 500 [place], [place] 384135 Physician Dance Hall Host/Hostess Endocrinology, Diabetes, and Metabolism 01/05/24 Eriberto Romano MD 420 [facility] 195 [place], [place] 9[address]25 Colon & Rectal 01/18/24 William Spain MD 717 [facility] 353 [facility] 1932 [place], [place] 1455[address] Assigned Nephrology Provider 01/26/24 documented as of this encounter
--- OUTSIDE RECORDS SUMMARY | 2024-03-17 16:18 | XMS_ITS | Encounter Summary ---
Author Organization [place] Address [address] [place] [address]. [place] [address] Care Team Providers Care Swing Tender Name Role Phone No Ref-Primary, Physician Primary Care Provider Georgette Velez MD Unavailable [phone] Ely Galvez MD Unavailable [phone] Lissa White PA-C Unavailable Reason for Referral * Consultation (Emergency: 1-2 Days) - Pending Review Specialty Diagnoses / Procedures Referred By Contac t Referred To Contact Colon and Rectal Surgery Diagnoses Perforation bowel (H) Kylee Carmona MD [address] [place] [id number] Referral ID Status Reason Start Date Expiration Date V isits Requested Visits Authorized [id number] Pending Review 01/04/2024 01/03/2025 1 1 Question Answer Reason for Referral: Other My Clinical Question Is: perforated sigmoid/diverticulitis. at [facility] being discharged to follow up [facility] Special Concerns: None Scheduling Instructions: [email or web address] will call you to coordinate care as prescribed your provider. If you don? t hear from a office machines sales representative within 2 business days, please call . Comments Please be aware that coverage of these services is subject to the terms and limitations of your health insurance plan. Call member services at your health plan with any benefit or coverage questions. [email or web address] will call you to coordinate care as prescribed your provider. If you don? t hear from a office machines sales representative within 2 business days, please call . Encounter Details Date Type Department Care Team (Late Contact Info) Description 01/04/2024 Orders Only [facility] [address] [place] [address] [phone] Daniela Majano, RN Perforation bowel (H) (Primary Dx) Social History Tobacco Use Types Packs/Day Years [...] as of this encounter Progress Notes * Daniela Majano, RN - 01/04/2024 10:51 AM CDT perforated sigmoid/diverticulitis per OSH. Per dr carmona patient to have colorectal appt. Referral placed. documented in this encounter Plan of Treatment Upcoming Encounters Date Type Department Care Team (Late Contact Info) Description 04/04/2024 PRE VISIT [facility] [address] [place] [phone] Eriberto Romano MD [address] [place] [address] [address] [place], [place] [phone] Previsit 04/04/2024 11:00 AM CDT Office Visit [facility] [address] [place] [phone] Kylee Carmona MD [address] [place] [address] [address] [place] [address] Eriberto Romano MD [address] [facility] [address] [place] [address] 05/04/2024 2:00 PM CDT Virtual Visit [address] [phone] Lissa White PA-C [address] [place], [place] [address] 05/06/2024 2:00 PM CDT Office Visit [address] [phone] Lissa White PA-C [address] [place], [place] [address] 05/10/2024 8:00 AM CDT Office Visit [facility] [address] [phone] Kylee Carmona MD [address] [place] [address] [address] [place] [address] 08/23/2024 10:30 AM INSIDE BARREL LATHE OPERATOR Office Visit [facility] [address] [place] [address] [phone] Georgette Velez MD [address] [place], [place] [address] Scheduled Referrals Name Type Priority Associated Diagnoses Orde r Schedule Adult Colorectal Surgery Radio Interference Supervisor Referral Referral Emergency: 1-2 Days Perforation bowel (H) Expected: 01/04/2024 (Approximate), Expires: 01/03/2025 documented as of this encounter Visit Diagnoses Diagnosis Perforation bowel (H)- Primary Perforation of intestine documented in this encounter Care Teams Swing Tender Relationship Specialty Start Date End Date No Ref-Primary, Physician PCP - General 07/20/23 01/04/24 Georgette Velez MD [address] [place] [address] Assigned Nephrology Provider 08/29/23 01/25/24 Ely Galvez MD [id number] [id number] Hospitalist Endocrinology, Diabetes, and Metabolism 09/10/23 01/04/24 Lissa White PA-C [address] [place] [address] Physician [employer] Endocrinology, Diabetes, and Metabolism 01/05/24 documented as of this encounter
--- OUTSIDE RECORDS SUMMARY | 2024-03-17 16:18 | XMS_ITS | Clinical Summary ---
[facility] Address [address], [place] [address] Care Team Providers Care Paint Roller Cover Machine Setter Name Role Phone Unavailable Primary Care Provider Unavailabl e Source Comments You are receiving this document as you are listed as the primary care provider,follow-up provider, or the patient has been referred to you for consultation.This is in compliance with the Medicare and[facility] EHR Incentive Program,which states Providers who transition their patient to another setting of careor provider of care or refers their patient to another provider of care shouldprovide summary care record for each transition of care or referral. [employer] Allergies No known active allergies Medications Medication Sig Dispensed Refills Start Date End Date Status magnesium 250 MGIndications:GUIDO MARTINEZ Aug 28, 2015 5:22 AM Received from: [facility] GIOVANNI POLANCO Nov 15, 2015 5:41 PM Take 250 mg by mouth. 07/02/2015 Active ranitidine (ZANTAC) 300 MG tablet Take 300 mg by mouth nightly. 11/15/2015 Active zinc sulfate (ZINCATE) 220 MG capsuleIndications:ELVIRA DO ThuMar 07, 2016 11:13 AM Received from: External Pharmacy Indications: PN: ELVIRA PENNY ThuMar 07, 2016 11:13 AM Received from: External Pharmacy 12/21/2015 Active cholecalciferol (VITAMIN D3) 92844 UNITS capsule Take 50,000 Units by mouth three times a week. M, W, F 03/14/2016 Active escitalopram oxalate (LEXAPRO) 10 MG tabletIndications:Major depressive disorder, recurrent, in partial remission (HRC) Take 1.5 Tabs by mouth daily. 45 Tab 3 06/18/2016 Active levothyroxine (SYNTHROID) 75 MCG tabletIndications:Hypot hyroidism, unspecified type (HRC) Take 1 Tab by mouth daily. 30 Tab 6 07/31/2016 Active metoPROLOL tartrate (LOPRESSOR) 25 MG tabletIndications:Parox ysmal SVT (supraventricular tachycardia) (HRC) Take 1 Tab by mouth two times a day. Indications: PN: 180 Tab 3 07/31/2016 Active ondansetron (ZOFRAN-ODT) 4 MG disintegrating tabletIndications:Nause a Take 1 Tab by mouth every 8 hours as needed. Indications: PN: 30 Tab 0 07/31/2016 Active spironolactone (ALDACTONE) 100 MG tabletIndications:Other ascites Take 0.5 Tabs by mouth daily. 90 Tab 1 07/31/2016 Active zolpidem (AMBIEN) 5 MG tabletIndications:Chron ic insomnia Take 1 Tab by mouth at bedtime as needed for Sleep. 30 Tab 5 07/31/2016 Active furosemide (LASIX) 20 MG tabletIndications:Cirrh osis of liver without ascites, unspecified hepatic cirrhosis type (HRC) Take 1 Tab by mouth daily. 90 Tab 3 07/31/2016 Active rifaximin (XIFAXAN) 550 MG tabletIndications:ELVIRA PENNY ThuMar 07, 2016 11:13 AM Received from: External Pharmacy Take 1 Tab by mouth two times a day. Indications: ELVIRA PENNY ThuMar 07, 2016 11:13 AM Received from: External Pharmacy 180 Tab 0 10/07/2016 Active oxyCODONE (ROXICODONE) 5 MG immediate release tablet Take 1 Tab by mouth every 6 hours as needed for Pain. 15 Tab 0 10/07/2016 Active ciprofloxacin (CIPRO) 500 MG tablet Take 1 Tab by mouth daily. 30 Tab 1 11/25/2016 Active Active Problems Problem Noted Date Diagnosed Date Acute renal insufficiency 11/15/2015 Diarrhea 11/15/2015 Thrombocytopenia 11/08/2015 Overview: Chronic 30s-40s. Paroxysmal SVT (supraventricular tachycardia) Tachycardia 11/06/2015 Ventricular tachycardia 11/06/2015 Cirrhosis of liver with ascites 08/28/2015 Ascites 08/23/2015 Chronic hepatitis C 04/18/2015 Hypothyroidism 04/18/2015 Resolved Problems Problem Noted Date Diagnosed Date Resolved Date CAREPLAN: [facility] 12/25/2015 08/06/2016 Overview: Background: Engaged in Complex Case Management: Greer Cui RN [phone] Goals/Recommendations: Health [facility], active care coordination 11/27/2015 12/22/2017 Overview: Telecommunication Engineer: Lissa Meyer RN Telecommunication Engineer, [facility]/Peds - [phone] Care coordination focus: Multiple Specialists Living situation: Lives with ex- Important notes: See care plan under Chart Review > Misc Reports > [facility] REPORT Colitis due to Clostridium difficile 08/01/2015 08/28/2015 Primary bacterial peritonitis 06/24/2015 08/28/2015 Anemia of chronic disorder 04/18/2015 1 10/28/2014 Cholelithiasis and cholecyst itis with obstruction 04/18/2015 08/28/2015 Hypokalemia 04/18/2015 08/28/2015 Family History * Patient is adopted Medical History Relation Name Comments Schizophrenia Mother Depression Son 1 Relation Name Status Comments Father Mother Daughter 1 Alive Daughter 2 Alive Son 1 Alive Son 2 Alive Social History Tobacco Use Types Packs/Day Years Used Date Smoking Tobacco: Never Smokeless Tobacco: Never Alcohol Use Standard Drinks/Week Comments No 0 (1 standard drink = 0.6 oz pur e alcohol) Sex and Gender Information Value Date Recorded Sex Assigned at Not on file Gender Identity Not on file Sexual Orientation Not on file Last Filed Vital Signs Vital Sign Reading Time Taken Comments Blood Pressure 109/66 10/07/2016 1:30 PM HOSPICE VOLUNTEER Pulse 85 10/07/2016 1:30 PM HOSPICE VOLUNTEER Temperature 36.8 ??C (98.3 ??F) 10/07/2016 11:[address] Respiratory Rate 18 10/07/2016 11:14 AM HOSPICE VOLUNTEER Oxygen Saturation 94% 10/07/2016 1:30 PM HOSPICE VOLUNTEER Inhaled Oxygen Concentration - - Weight 69.9 kg (154 lb) 10/07/2016 9:10 AM HOSPICE VOLUNTEER Height 162.6 cm (5' 4) 07/31/2016 10:47 AM CDT Body Mass Index 26.43 07/31/2016 10:47 AM CDT Plan of Treatment Health Maintenance Due Date Last Done Comments Colon Cancer Screening Plan Due 1950 Medicare Annual Wellness Visit 1950 Mammogram 1950 Pneumococcal 65+ Yrs (1 - PCV) 1958 DTaP/Tdap/Td (1 - Tdap) 1971 HepA (1 of 2 - Risk 2-dose series) 1971 Cholesterol 1997 Zoster/Shingles (1 of 2) 2002 HepB (1) 2012 COVID-19 Vaccine (1 - season) 2023 Influenza (Season Ended) 2024 Hep C Screening (Preventive Services) Completed 10/07/2016, 10/07/2016, 07/31/2016, Additional history exists Hib Aged Out No longer eligi ble based on patient's age to complete this topic IPV (Polio) Aged Out No longer eligi ble based on patient's age to complete this topic MCV4 Aged Out No longer eligi ble based on patient's age to complete this topic Additional Health Concerns Infection Onset Date 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
--- OUTSIDE RECORDS SUMMARY | 2024-03-17 16:19 | XMS_ITS | Data Portability ---
Author Organization [facility] -[place], [facility]_Healthy Interactions Address [address] [place] [address] Care Team Providers Care Recreational Vehicle Repairer Name Role Phone DON ANAYA MD Primary Care Provider [phone] [facility] Blood Donor Recruiter Supervisor Assessment No assessment recorded. Plan of Treatment Reminders Order Date Submit Date Provider Last Modified By Organization Details Last Modified Time Details Appointments None recorded. Lab urinalysis, dipstick 2021 022 [email or web address] [facility]_corey Smith, [address], [place], [address], 21:10:26 vitamin D, 25-hydroxy, total, serum [address], [place], [address], 2 15:10:35 microalbumi n/creatinin e, mass ratio, urine [address]argas, [place], [address], 2 15:10:35 thyroid panel, serum [address] Vargas, [place], [address], 2 15:10:32 CMP, serum or plasma [address]argas, [place], [address], 15:10:34 CBC w/ auto diff [address] Vargas, [place], [address], 2 15:10:33 culture, urine [address] Vargas, [place], [address], 2 07:10:25 unlisted lab - allergens (25) foods [address] Vargas, [place], [address], 07:10:24 celiac disease comprehensi ve panel, serum [address] Vargas, [place], [address], 2 07:10:21 gliadin peptide + tissue transglutam inase Ab, IgA + IgG, QL, IA, serum [address]argas, [place], [address], 07:10:23 unlisted lab - H.pylori,Ig G/IgM abs [address] [place], [address], 2 07:10:22 urinalysis, dipstick 2021 [id number] _ne_Mage[facility], [address], [place], [address], 17:32:07 cytology, urine [address] [place], [address], 07:11:42 culture, urine [address] [place], [address], 07:10:59 CMP, serum or plasma [address] [place], [address], 09:15:59 CBC w/ auto diff [address] [place], [address], 09:15:58 lipid panel, serum [address] [place], [address], 2 09:16:00 urinalysis, dipstick 2021 022 [id number] _[facility], [address] [facility] B, [place], [address], 13:00:53 HbA1c (hemoglobin A1c), blood [address] [place], [address], 2 09:16:01 TSH + free T4, serum [address] [place], [address], 2 09:15:57 vitamin D, 25-hydroxy, total, serum [address] [place], [address], 09:16:02 Referral urogynecolo gist referral 2021 [email or web address] [facility], [address] , [address], [place], [address], 15:47:23 Procedures None recorded. Surgeries None recorded. Imaging DEXA 2021 [email or web address] [facility], [address] [place] [address] , [address], [place], [address], 11:50:12 MAMMO, screening, digital, bilateral 2021 [place] [facility], [address] [place] [address] , [address], [place], [address], 15:46:33 Medication Orders hydroxyzine HCl 25 mg tablet 2021 [facility]/Pharmacy #0079, [address], [address], 10:07:00 Bactrim DS 800 mg-160 mg tablet [address]/Pharmacy #0079, [address], [address], 10:04:37 Pyridium 200 mg tablet [address]/Pharmacy #0079, 2097 [facility] [address] [place], [address], 10:04:47 mycophenola te mofetil 250 mg capsule 2021 [facility]/Pharmacy #0079, [address] [facility] [address] [place], [address], 09:34:48 Novolog FlexPen U-100 Insulin aspart 100 unit/mL (3 mL) subcutaneou s 2021 022 [facility]/Pharmacy #0079, [address] [facility] [address] [place], [address], 2 09:34:51 fluticasone propionate 50 mcg/actuati on nasal spray,suspe nsion 2021 [facility]/Pharmacy #0079, [address] [facility] [address] [place], [address], 2 09:27:41 cetirizine 10 mg tablet [address]/Pharmacy #0079, 20[address] [facility] [address] [place], [address], 2 10:01:00 tacrolimus 1 mg capsule, immediate-r elease 2021 022 [facility]/Pharmacy #0079, [address] [facility] [address] [place], [address], 2 09:34:48 cholecalcif kat (vitamin D3) 125 mcg (5,000 unit) capsule [address]/Pharmacy #0079, 20[address] [facility] [address] [place], [address], 10:05:10 Ozempic 1 mg/dose (4 mg/3 mL) subcutaneou s pen injector [address]/Pharmacy #0079, 20[address] [facility] [address] [place], [address], 2 09:34:44 Tresiba FlexTouch U-100 insulin 100 unit/mL (3 mL) subcutaneou s pen [address]/Pharmacy #0079, [address] [facility] [address] [place], [address], 09:34:44 levothyroxi ne 100 mcg tablet [address]/Pharmacy #0079, 2097 [facility] [address] [place], [address], 2 10:02:40 meclizine 25 mg tablet 2021 022 [facility]/Pharmacy #0079, [address] [facility] [address] [place], [address], 08:43:16 Zithromax Z-Kyle 250 mg tablet 2021 022 [facility]/Pharmacy #0079, [address] [facility] [address] [place], [address], 08:42:24 molnupiravi r 200 mg capsule (EUA) [address]/Pharmacy #0079, [address] [facility] [address] [place], [address], 10:05:01 promethazin e-DM 6.25 mg-15 mg/5 mL oral syrup [address]/Pharmacy #0079, [address] [place] [address] [address] [place], [address], 10:04:42 Patient TargetsNo targets recorded. Patient Instructions Encounter Date Encounter Id Patient Instructions Last Modified By Organization Details Last Modified Time 06/16/2022 [id number] managing your allergies: care instructions [email or web address] Not available 06/16/2022 10:06:58 hypothyroidism: care instructions [email or web address] Not available 06/16/2022 09:54:34 05/26/2022 [id number] allergies: care instructions Not available 05/26/2022 17:26:44 managing your allergies: care instructions [email or web address] Not available 05/26/2022 17:26:44 high blood pressure: care instructions [email or web address] Not available 05/26/2022 17:26:44 learning about h igh blood pressure [email or web address] Not available 05/26/2022 17:26:44 04/09/2022 [id number] advance care planning: care instructions [email or web address] Not available 04/09/2022 09:27:38 high blood pressure: care instructions [email or web address] Not available 04/09/2022 09:27:38 learning about h igh blood pressure [email or web address] Not available 04/09/2022 09:27:38 learning about breast cancer screening [email or web address] Not available 04/09/2022 09:27:38 hypothyroidism: care instructions [email or web address] Not available 04/09/2022 09:27:37 It was good to s ee you in the office today for your Medicare Annual Wellness Visit. You have been provided some information on healthy nutrition, including a diet rich in fruits and vegetables, minimizing simple carbohydrates, salt, and saturated fats. I want to encourage regular cardiovascular exercise such as walking at least 30 minutes daily, 5 times per week. Please remember to schedule any preventive health measures that we talked about today. Screening Recommendations 1. Vaccines Pneumonia: {{Ordered Recommend ed today Next one No further need*}} Influenza: {{Ordered Recommend ed today This Fall* Next Fall}} 2. Mammography Screening: {{Ordered* Recommen ded today Next Screening No further screening necessary at this time}} 3. Colorectal Cancer Screening: {{Colonoscopy (every 10 years)* Cologuard (every 3 years) IFOB (every year)}} {{Ordered Recommend ed today Next Screening* No further screening necessary at this time}} 4. Annual Depression Screening 5. Annual Alcohol Screening 6. Annual Fall Risk Screening 7. Annual Health Risk Assessment [email or web address] Not available 04/09/2022 09:20:03 03/11/2022 [id number] dizziness: care instructions Not available 03/11/2022 16:58:23 learning about t ype 2 diabetes [email or web address] Not available 03/12/2022 08:26:59 type 2 diabetes: care instructions [email or web address] Not available 03/12/2022 08:26:59 cough: care instructions Not available 03/11/2022 16:58:23 deciding about stopping your antidepressant [email or web address] Not available 03/12/2022 08:26:58 depression and chronic disease: care instructions [email or web address] Not available 03/12/2022 08:26:58 depression treatment: care instructions [email or web address] Not available 03/12/2022 08:26:58 Preventing Depression From Coming Back: Care Instructions [email or web address] Not available 03/12/2022 08:26:58 recovering from depression: care instructions [email or web address] Not available 03/12/2022 08:26:59 seasonal affecti ve disorder: care instructions [email or web address] Not available 03/12/2022 08:26:59 suicidal thought s in a family member: care instructions [email or web address] Not available 03/12/2022 08:26:58 learning about healthy weight [email or web address] Not available 03/11/2022 16:58:24 Reason for Referral Urogynecologist Referral for Recurrent urinary tract infection Referring Physician: Grazyna Casanova, Family Medicine, Encounter Date: 05/26/2022 Results Created Date Observation Date Name Description Value Unit Range Abnormal Flag LastModifiedBy Organization Detail LastModifiedTime 07/12/2007/12/2019 thyro id panel , serum TSH 1.220 uIU/m L 0.450- 4.500 Not Available [facility] [place], [address], 08/26/2022 23:25:19 07/12/20 19 07/12/2019 thyro id panel , serum thyroxine (T4) 8.9 ug/dL 4.5-12 .0 Not Available [facility] [place], [address], 08/26/2022 23:25:19 07/12/20 19 07/12/2019 thyro id panel , serum T3 uptake 24 % 24-39 Not Available [facility] [place] [facility] [place], [address], 08/26/2022 23:25:19 07/12/20 19 07/12/2019 thyro id panel , serum free thyroxine index 2.1 1.2-4. 9 Not Available [facility] [place], [address], 08/26/2022 23:25:19 06/11/20 21 06/11/2021 thyro id panel , serum TSH 0.520 uIU/m L 0.450- 4.500 Not Available [facility] [place], [address], 08/26/2022 23:25:27 06/11/20 21 06/11/2021 thyro id panel , serum thyroxine (T4) 8.4 ug/dL 4.5-12 .0 Not Available [facility] [place], [address], 08/26/2022 23:25:27 06/11/20 21 06/11/2021 thyro id panel , serum T3 uptake 28 % 24-39 Not Available [facility] [place], [address], 08/26/2022 23:25:27 06/11/20 21 06/11/2021 thyro id panel , serum free thyroxine index 2.4 1.2-4. 9 Not Available [facility] [place], [address], 08/26/2022 23:25:27 06/11/20 21 06/11/2021 lipid panel , serum cholesterol, total 171 mg/dL 100-19 9 Not Available [facility] [address], [place], [address], 08/26/2022 23:25:25 06/11/20 21 06/11/2021 lipid panel , serum triglyceride s 151 mg/dL 0-149 high Not Available [facility] [address], [place], [address], 08/26/2022 23:25:25 06/11/20 21 06/11/2021 lipid panel , serum HDL cholesterol 49 mg/dL >39 Not Available [facility] [address], [place], [address], 08/26/2022 23:25:25 06/11/20 21 06/11/2021 lipid panel , serum VLDL cholesterol dawson 26 mg/dL 5-40 Not Available [facility] [address], [place], [address], 08/26/2022 23:25:25 06/11/20 21 06/11/2021 lipid panel , serum LDL chol calc ([facility]) 96 mg/dL 0-99 Not Available [facility] [address], [place], [address], 08/26/2022 23:25:25 06/11/20 21 06/11/2021 lipid panel , serum comment: Not Available [facility] [address], [place], [address], 08/26/2022 23:25:25 06/11/20 21 06/11/2021 HbA1c (hemo globi n A1c), blood hemoglobin A1C 6.5 % 4.8-5. 6 high Not Available [facility] [address], [place], [address], 08/26/2022 23:25:24 06/11/20 21 06/11/2021 CBC w/ diff WBC 8.4 x10e3 /uL 3.4-10 .8 Not Available [facility] [address], [place], [address], 08/26/2022 23:25:20 06/11/20 21 06/11/2021 CBC w/ diff neutrophils 67 % not estab. Not Available [facility], [facility] [address], [place], [address], 08/26/2022 23:25:20 06/11/20 21 06/11/2021 CBC w/ diff lymphs 18 % not estab. Not Available [facility] [address], [place], [address], 08/26/2022 23:25:20 06/11/20 21 06/11/2021 CBC w/ diff monocytes 11 % not estab. Not Available [facility], [facility] [address], [place], [address], 08/26/2022 23:25:20 06/11/20 21 06/11/2021 CBC w/ diff eos 2 % not estab. Not Available [facility] [address], [place], [address], 08/26/2022 23:25:20 06/11/20 21 06/11/2021 CBC w/ diff basos 1 % not estab. Not Available [facility] [address], [place], [address], 08/26/2022 23:25:20 06/11/20 21 06/11/2021 CBC w/ diff immature cells Not Available [facility], [facility] [address], [place], [address], 08/26/2022 23:25:20 06/11/20 21 06/11/2021 CBC w/ diff neutrophils (absolute) 5.8 x10e3 /uL 1.4-7. 0 Not Available [facility] [address], [place], [address], 08/26/2022 23:25:20 06/11/20 21 06/11/2021 CBC w/ diff lymphs (absolute) 1.5 x10e3 /uL 0.7-3. 1 Not Available [facility], [facility] [address], [place], [address], 08/26/2022 23:25:20 06/11/20 21 06/11/2021 CBC w/ diff monocytes(ab solute) 0.9 x10e3 /uL 0.1-0. 9 Not Available [facility] [address], [place], [address], 08/26/2022 23:25:20 06/11/20 21 06/11/2021 CBC w/ diff eos (absolute) 0.1 x10e3 /uL 0.0-0. 4 Not Available [facility] [address], [place], [address], 08/26/2022 23:25:20 06/11/20 21 06/11/2021 CBC w/ diff RBC 4.99 x10e6 /uL 3.77-5 .28 Not Available [facility] [address], [place], [address], 08/26/2022 23:25:20 06/11/20 21 06/11/2021 CBC w/ diff baso (absolute) 0.1 x10e3 /uL 0.0-0. 2 Not Available [facility] [address], [place], [address], 08/26/2022 23:25:20 06/11/20 21 06/11/2021 CBC w/ diff immature granulocytes 1 % not estab. Not Available [facility] [address], [place], [address], 08/26/2022 23:25:20 06/11/20 21 06/11/2021 CBC w/ diff immature grans (abs) 0.1 x10e3 /uL 0.0-0. 1 Not Available [facility] [address], [place], [address], 08/26/2022 23:25:20 06/11/20 21 06/11/2021 CBC w/ diff NRBC Not Available [facility] [address], [place], [address], 08/26/2022 23:25:20 06/11/20 21 06/11/2021 CBC w/ diff hematology comments: Not Available [facility] [address], [place], [address], 08/26/2022 23:25:20 06/11/20 21 06/11/2021 CBC w/ diff hemoglobin 13.3 g/dL 11.1-1 5.9 Not Available [facility] [address], [place], [address], 08/26/2022 23:25:20 06/11/20 21 06/11/2021 CBC w/ diff hematocrit 42.4 % 34.0-4 6.6 Not Available [facility] [address], [place], [address], 08/26/2022 23:25:20 06/11/20 21 06/11/2021 CBC w/ diff MCV 85 fL 79-97 Not Available [facility] [address], [place], [address], 08/26/2022 23:25:20 06/11/20 21 06/11/2021 CBC w/ diff MCH 26.7 pg 26.6-3 3.0 Not Available [facility] [address], [place], [address], 08/26/2022 23:25:20 06/11/20 21 06/11/2021 CBC w/ diff MCHC 31.4 g/dL 31.5-3 5.7 low Not Available [facility] [address], [place], [address], 08/26/2022 23:25:20 06/11/20 21 06/11/2021 CBC w/ diff RDW 14.2 % 11.7-1 5.4 Not Available [facility] [address], [place], [address], 08/26/2022 23:25:20 06/11/20 21 06/11/2021 CBC w/ diff platelets 185 x10e3 /uL 150-45 0 Not Available [facility] [address], [place], [address], 08/26/2022 23:25:20 09/11/20 21 09/11/2021 vitam in D, 25-hy droxy , total , serum vitamin D, 25-hydroxy 49.9 NG/mL 30.0-1 00.0 Not Available [facility] [place], [address], 08/26/2022 23:25:43 09/11/20 21 09/11/2021 vitam in B12, serum vitamin B12 243 pg/mL 232-12 45 Not Available [facility] ([facility]) [address] [place] [address], [place], [address], 08/26/2022 23:25:42 09/11/20 21 09/11/2021 thyro id panel , serum TSH 0.505 uIU/m L 0.450- 4.500 Not Available [facility] [place], [address], 08/26/2022 23:25:41 09/11/20 21 09/11/2021 thyro id panel , serum thyroxine (T4) 10.6 ug/dL 4.5-12 .0 Not Available [facility] [place], [address], 08/26/2022 23:25:41 09/11/20 21 09/11/2021 thyro id panel , serum T3 uptake 27 % 24-39 Not Available [facility] [place] [facility], [address], 08/26/2022 23:25:41 09/11/20 21 09/11/2021 thyro id panel , serum free thyroxine index 2.9 1.2-4. 9 Not Available [facility] [place] [facility] [place], [place], [address], 08/26/2022 23:25:41 09/11/20 21 09/11/2021 eryth rocyt e sedim entat ion rate by rojelio steve metho d sedimentatio n rate-westerg alfred 20 mm/HR 0-40 Not Available [address], [place], [address], 08/26/2022 23:25:39 09/11/20 21 09/11/2021 rf (rheu matoi d facto r), serum RA latex turbid. <10.0 IU/mL <14.0 Not Available [facility] [address] [place], [address], 08/26/2022 23:25:38 09/11/20 21 09/11/2021 lipid panel , serum cholesterol, total 181 mg/dL 100-19 9 Not Available [facility] [address], [place], [address], 08/26/2022 23:25:37 09/11/20 21 09/11/2021 lipid panel , serum triglyceride s 130 mg/dL 0-149 Not Available [facility] [address], [place], [address], 08/26/2022 23:25:37 09/11/20 21 09/11/2021 lipid panel , serum HDL cholesterol 55 mg/dL >39 Not Available [facility] [address], [place], [address], 08/26/2022 23:25:37 09/11/20 21 09/11/2021 lipid panel , serum VLDL cholesterol dawson 23 mg/dL 5-40 Not Available [facility] [address], [place], [address], 08/26/2022 23:25:37 09/11/20 21 09/11/2021 lipid panel , serum LDL chol calc ([facility]) 103 mg/dL 0-99 high Not Available [facility], [facility] [address], [place], [address], 08/26/2022 23:25:37 09/11/20 21 09/11/2021 lipid panel , serum comment: Not Available [facility], [facility] [address], [place], [address], 08/26/2022 23:25:37 09/11/20 21 09/11/2021 HbA1c (hemo globi n A1c), blood hemoglobin A1C 7.1 % 4.8-5. 6 high Not Available [facility], [facility] [address], [place], [address], 08/26/2022 23:25:34 09/11/20 21 09/11/2021 CMP, serum or plasm a glucose, serum 137 mg/dL 65-99 high Not Available [facility] [address], [place], [address], 08/26/2022 23:25:32 09/11/20 21 09/11/2021 CMP, serum or plasm a carbon dioxide, total 19 mmol/ L 20-29 low Not Available [facility] [address], [place], [address], 08/26/2022 23:25:32 09/11/20 21 09/11/2021 CMP, serum or plasm a calcium, serum 10.0 mg/dL 8.7-10 .3 Not Available [facility] [address], [place], [address], 08/26/2022 23:25:32 09/11/20 21 09/11/2021 CMP, serum or plasm a protein, total, serum 7.1 g/dL 6.0-8. 5 Not Available [facility], [facility] [address], [place], [address], 08/26/2022 23:25:32 09/11/20 21 09/11/2021 CMP, serum or plasm a albumin, serum 4.8 g/dL 3.8-4. 8 Not Available [facility], [facility] [address], [place], [address], 08/26/2022 23:25:32 09/11/20 21 09/11/2021 CMP, serum or plasm a globulin, total 2.3 g/dL 1.5-4. 5 Not Available [facility], [facility] [address], [place], [address], 08/26/2022 23:25:32 09/11/20 21 09/11/2021 CMP, serum or plasm a A/G ratio 2.1 1.2-2. 2 Not Available [facility], [facility] [address], [place], [address], 08/26/2022 23:25:32 09/11/20 21 09/11/2021 CMP, serum or plasm a bilirubin, total 0.2 mg/dL 0.0-1. 2 Not Available [facility], [facility] [address], [place], [address], 08/26/2022 23:25:32 09/11/20 21 09/11/2021 CMP, serum or plasm a alkaline phosphatase, S 67 IU/L 44-121 Not Available [facility], [facility] [address], [place], [address], 08/26/2022 23:25:32 09/11/20 21 09/11/2021 CMP, serum or plasm a AST (SGOT) 12 IU/L 0-40 Not Available [facility], [facility] [address], [place], [address], 08/26/2022 23:25:32 09/11/20 21 09/11/2021 CMP, serum or plasm a ALT (SGPT) 8 IU/L 0-32 Not Available [facility] [address], [place], [address], 08/26/2022 23:25:32 09/11/20 21 09/11/2021 CMP, serum or plasm a BUN 12 mg/dL 8-27 Not Available [facility] [address], [place], [address], 08/26/2022 23:25:32 09/11/20 21 09/11/2021 CMP, serum or plasm a creatinine, serum 1.15 mg/dL 0.57-1 .00 high Not Available [facility] [address], [place], [address], 08/26/2022 23:25:32 09/11/20 21 09/11/2021 CMP, serum or plasm a eGFR if nonafricn AM 49 mL/mi n/1.7 3 >59 low Not Available [facility] [address], [place], [address], 08/26/2022 23:25:32 09/11/20 21 09/11/2021 CMP, serum or plasm a eGFR if africn AM 56 mL/mi n/1.7 3 >59 low Not Available [facility] [address], [place], [address], 08/26/2022 23:25:32 09/11/20 21 09/11/2021 CMP, serum or plasm a BUN/creatini ne ratio 10 12-28 low Not Available [facility] [address], [place], [address], 08/26/2022 23:25:32 09/11/20 21 09/11/2021 CMP, serum or plasm a sodium, serum 143 mmol/ L 134-14 4 Not Available [facility] [address], [place], [address], 08/26/2022 23:25:32 09/11/20 21 09/11/2021 CMP, serum or plasm a potassium, serum 4.1 mmol/ L 3.5-5. 2 Not Available [facility] [address], [place], [address], 08/26/2022 23:25:32 09/11/20 21 09/11/2021 CMP, serum or plasm a chloride, serum 107 mmol/ L 96-106 high Not Available [facility] [address], [place], [address], 08/26/2022 23:25:32 09/11/20 21 09/11/2021 CBC w/ diff WBC 11.1 x10e3 /uL 3.4-10 .8 high Not Available [facility] [address], [place], [address], 08/26/2022 23:25:29 09/11/20 21 09/11/2021 CBC w/ diff neutrophils 73 % not estab. Not Available [facility], [facility] [address], [place], [address], 08/26/2022 23:25:29 09/11/20 21 09/11/2021 CBC w/ diff lymphs 15 % not estab. Not Available [facility] [address], [place], [address], 08/26/2022 23:25:29 09/11/20 21 09/11/2021 CBC w/ diff monocytes 9 % not estab. Not Available [facility], [facility] [address], [place], [address], 08/26/2022 23:25:29 09/11/20 21 09/11/2021 CBC w/ diff eos 1 % not estab. Not Available [facility] [address], [place], [address], 08/26/2022 23:25:29 09/11/20 21 09/11/2021 CBC w/ diff basos 1 % not estab. Not Available [facility] [address], [place], [address], 08/26/2022 23:25:29 09/11/20 21 09/11/2021 CBC w/ diff immature cells Not Available [facility], [facility] [address], [place], [address], 08/26/2022 23:25:29 09/11/20 21 09/11/2021 CBC w/ diff neutrophils (absolute) 8.3 x10e3 /uL 1.4-7. 0 high Not Available [facility] [address], [place], [address], 08/26/2022 23:25:29 09/11/20 21 09/11/2021 CBC w/ diff lymphs (absolute) 1.6 x10e3 /uL 0.7-3. 1 Not Available [facility] [address], [place], [address], 08/26/2022 23:25:29 09/11/20 21 09/11/2021 CBC w/ diff monocytes(ab solute) 1.0 x10e3 /uL 0.1-0. 9 high Not Available [facility] [address], [place], [address], 08/26/2022 23:25:29 09/11/20 21 09/11/2021 CBC w/ diff eos (absolute) 0.1 x10e3 /uL 0.0-0. 4 Not Available [facility] [address], [place], [address], 08/26/2022 23:25:29 09/11/20 21 09/11/2021 CBC w/ diff RBC 5.38 x10e6 /uL 3.77-5 .28 high Not Available [facility] [address], [place], [address], 08/26/2022 23:25:29 09/11/20 21 09/11/2021 CBC w/ diff baso (absolute) 0.1 x10e3 /uL 0.0-0. 2 Not Available [facility] [address], [place], [address], 08/26/2022 23:25:29 09/11/20 21 09/11/2021 CBC w/ diff immature granulocytes 1 % not estab. Not Available [facility] [address], [place], [address], 08/26/2022 23:25:29 09/11/20 21 09/11/2021 CBC w/ diff immature grans (abs) 0.1 x10e3 /uL 0.0-0. 1 Not Available [facility], [facility] [address], [place], [address], 08/26/2022 23:25:29 09/11/20 21 09/11/2021 CBC w/ diff NRBC Not Available [facility], [facility] [address], [place], [address], 08/26/2022 23:25:29 09/11/20 21 09/11/2021 CBC w/ diff hematology comments: Not Available [facility] [address], [place], [address], 08/26/2022 23:25:29 09/11/20 21 09/11/2021 CBC w/ diff hemoglobin 13.5 g/dL 11.1-1 5.9 Not Available [facility] [address], [place], [address], 08/26/2022 23:25:29 09/11/20 21 09/11/2021 CBC w/ diff hematocrit 44.8 % 34.0-4 6.6 Not Available [facility] [address], [place], [address], 08/26/2022 23:25:29 09/11/20 21 09/11/2021 CBC w/ diff MCV 83 fL 79-97 Not Available [facility] [address], [place], [address], 08/26/2022 23:25:29 09/11/20 21 09/11/2021 CBC w/ diff MCH 25.1 pg 26.6-3 3.0 low Not Available [facility] [address], [place], [address], 08/26/2022 23:25:29 09/11/20 21 09/11/2021 CBC w/ diff MCHC 30.1 g/dL 31.5-3 5.7 low Not Available [facility] [address], [place], [address], 08/26/2022 23:25:29 09/11/20 21 09/11/2021 CBC w/ diff RDW 13.9 % 11.7-1 5.4 Not Available [facility] [address], [place], [address], 08/26/2022 23:25:29 09/11/20 21 09/11/2021 CBC w/ diff platelets 244 x10e3 /uL 150-45 0 Not Available [facility] [address], [place], [address], 08/26/2022 23:25:29 09/11/20 21 09/11/2021 BENNY (anti nucle ar antib odies ) scree n, serum BENNY direct negati ve negati ve Not Available [facility] (Lab) [address], [place], [address], 08/26/2022 23:25:28 09/11/20 21 09/11/2021 lab resul t dexa hip and spine Not Available Not Available 23:25:18 04/09/20 22 04/10/2022 TSH+F REE T4 TSH 0.277 uIU/m L 0.450- 4.500 below low normal Not Available [facility] ([facility]) [address] [place], [address], 04/10/2022 09:15:57 04/09/20 22 04/10/2022 TSH+F REE T4 T4,free(dire ct) 1.46 NG/dL 0.82-1 .77 Not Available [facility] ([facility]) [address] [place], [address], 04/10/2022 09:15:57 04/09/20 22 04/10/2022 COMP. METAB OLIC PANEL (14) glucose 94 mg/dL 65-99 Not Available [facility] ([facility]) [address] [place], [address], 04/10/2022 09:15:59 04/09/20 22 04/10/2022 COMP. METAB OLIC PANEL (14) BUN 11 mg/dL 8-27 Not Available [facility] ([facility]) [address] [place], [address], 04/10/2022 09:15:59 04/09/20 22 04/10/2022 COMP. METAB OLIC PANEL (14) creatinine 1.07 mg/dL 0.57-1 .00 above high normal Not Available [facility] ([facility]) [address] [place], [address], 04/10/2022 09:15:59 04/09/20 22 04/10/2022 COMP. METAB OLIC PANEL (14) eGFR 56 mL/mi n/1.7 3 >59 below low normal Not Available [facility] ([facility]) [address] [facility], [place], [address], 04/10/2022 09:15:59 04/09/20 22 04/10/2022 COMP. METAB OLIC PANEL (14) BUN/creatini ne ratio 10 12-28 below low normal Not Available [facility] ([facility]) [address] [facility], [place], [address], 04/10/2022 09:15:59 04/09/20 22 04/10/2022 COMP. METAB OLIC PANEL (14) sodium 142 mmol/ L 134-14 4 Not Available [facility] ([facility]) [address] [facility], [place], [address], 04/10/2022 09:15:59 04/09/20 22 04/10/2022 COMP. METAB OLIC PANEL (14) potassium 4.1 mmol/ L 3.5-5. 2 Not Available [facility] ([facility]) [address] [facility], [place], [address], 04/10/2022 09:15:59 04/09/20 22 04/10/2022 COMP. METAB OLIC PANEL (14) chloride 108 mmol/ L 96-106 above high normal Not Available [facility] ([facility]) [address] [place], [address], 04/10/2022 09:15:59 04/09/20 22 04/10/2022 COMP. METAB OLIC PANEL (14) carbon dioxide, total 20 mmol/ L 20-29 Not Available [facility] ([facility]) [address] [facility], [place], [address], 04/10/2022 09:15:59 04/09/20 22 04/10/2022 COMP. METAB OLIC PANEL (14) calcium 9.4 mg/dL 8.7-10 .3 Not Available [facility] ([facility]) [address] [place] [place], [address], 04/10/2022 09:15:59 04/09/20 22 04/10/2022 COMP. METAB OLIC PANEL (14) protein, total 6.6 g/dL 6.0-8. 5 Not Available [facility] ([facility]) [address] [place] [place], [address], 04/10/2022 09:15:59 04/09/20 22 04/10/2022 COMP. METAB OLIC PANEL (14) albumin 4.7 g/dL 3.8-4. 8 Not Available [facility] ([facility]) [address] [place] [place], [address], 04/10/2022 09:15:59 04/09/20 22 04/10/2022 COMP. METAB OLIC PANEL (14) globulin, total 1.9 g/dL 1.5-4. 5 Not Available [facility] ([facility]) [address] [place] [place], [address], 04/10/2022 09:15:59 04/09/20 22 04/10/2022 COMP. METAB OLIC PANEL (14) A/G ratio 2.5 1.2-2. 2 above high normal Not Available [facility] ([facility]) [address] [place] [place], [address], 04/10/2022 09:15:59 04/09/20 22 04/10/2022 COMP. METAB OLIC PANEL (14) bilirubin, total 0.2 mg/dL 0.0-1. 2 Not Available [facility] ([facility]) [address] [place] [place], [address], 04/10/2022 09:15:59 04/09/20 22 04/10/2022 COMP. METAB OLIC PANEL (14) alkaline phosphatase 49 IU/L 44-121 Not Available [facility] ([facility]) [address] [facility], [place], [address], 04/10/2022 09:15:59 04/09/20 22 04/10/2022 COMP. METAB OLIC PANEL (14) AST (SGOT) 13 IU/L 0-40 Not Available [facility] ([facility]) [address] [facility], [place], [address], 04/10/2022 09:15:59 04/09/20 22 04/10/2022 COMP. METAB OLIC PANEL (14) ALT (SGPT) 16 IU/L 0-32 Not Available [facility] ([facility]) [address] [facility], [place], [address], 04/10/2022 09:15:59 04/09/20 22 04/11/2022 URINE CULTU REMARI NE urine culture, routine FINAL REPORT Not Available [facility] ([facility]) [address] [facility], [place], [address], 04/11/2022 07:10:59 04/09/20 22 04/11/2022 URINE CULTU REMARI NE result 1 LACTOB ACILLU S SPECIE S Not Available [facility] ([facility]) [address] [facility], [place], [address], 04/11/2022 07:10:59 04/09/20 22 04/09/2022 urina lysis , dipst ick Unknown Analyte yellow [facility] Available [facility] [place] [address], [place], [address], 04/09/2022 09:55:13 04/09/20 22 04/09/2022 urina lysis , dipst ick Unknown Analyte negati ve Not Available [place] [address], [place], [address], 04/09/2022 09:55:13 04/09/20 22 04/09/2022 urina lysis , dipst ick Unknown Analyte negati ve Not Available telly [place] [address], [place], [address], 04/09/2022 09:55:13 04/09/20 22 04/09/2022 urina lysis , dipst ick Unknown Analyte negati ve Not Available telly [place] [address] [facility] [address], [place], [address], 04/09/2022 09:55:13 04/09/20 22 04/09/2022 urina lysis , dipst ick Unknown Analyte 1,030 Not Available Fedectmichelle pickett [place] [address] [facility] [address], [place], [address], 04/09/2022 09:55:13 04/09/20 22 04/09/2022 urina lysis , dipst ick Unknown Analyte negati ve Not Available [facility]ectFedecorey [place] [address] [facility] [address], [place], [address], 04/09/2022 09:55:13 04/09/20 22 04/09/2022 urina lysis , dipst ick Unknown Analyte 5.5 Not Available hoa pickett [place] [address] [facility] [address], [place], [address], 04/09/2022 09:55:13 04/09/20 22 04/09/2022 urina lysis , dipst ick Unknown Analyte negati ve Not Available hoapiyush [place] [address] [facility] [address], [place], [address], 04/09/2022 09:55:13 04/09/20 22 04/09/2022 urina lysis , dipst ick Unknown Analyte 0.2 Not Available antonellaFedeari pickett [place] [address] [facility] [address], [place], [address], 04/09/2022 09:55:13 04/09/20 22 04/09/2022 urina lysis , dipst ick Unknown Analyte negati ve Not Available Cherise [place] [address], [place], [address], 04/09/2022 09:55:13 04/09/20 22 04/09/2022 urina lysis , dipst ick Unknown Analyte trace Not Available Benitez pickett [place] [address], [place], [address], 04/09/2022 09:55:13 05/26/20 22 05/28/2022 URINE CYTOL OGY source: GEO Pickett Not Available [facility] ([facility]) [address] [facility], [place], [address], 05/29/2022 07:11:42 05/26/20 22 05/28/2022 URINE CYTOL OGY clinician provided ICD10: GEO Pickett Not Available [facility] ([facility]) [address] [facility], [place], [address], 05/29/2022 07:11:42 05/26/20 22 05/28/2022 URINE CYTOL OGY diagnosis: GEO Pickett Not Available [facility] ([facility]) [address] [facility], [place], [address], 05/29/2022 07:11:42 05/26/20 22 05/28/2022 URINE CYTOL OGY signed out by: GEO Pickett Not Available [facility] ([facility]) [address] [place], [address], 05/29/2022 07:11:42 05/26/20 22 05/28/2022 URINE CYTOL OGY performed by: GEO Pickett Not Available [facility] ([facility]) [address] [facility], [place], [address], 05/29/2022 07:11:42 05/26/2026 0505/28/2022 URINE CYTOL OGY gross description: COMMEN T Not Available [facility] ([facility]) [address] [place], [address], 05/29/2022 07:11:42 05/26/20 22 05/27/2022 TWIN C DISEA SE PANEL endomysial antibody IgA NEGATI VE negati ve Not Available [facility] ([facility]) [address] [place], [address], 05/31/2022 07:10:21 05/26/20 22 05/27/2022 TWIN C DISEA SE PANEL immunoglobul in A, qn, serum 163 mg/dL 87-352 Not Available [facility] ([facility]) [address] [place], [address], 05/31/2022 07:10:21 05/26/20 22 05/28/2022 TWIN C DISEA SE PANEL T-transgluta minase (ttg) IgA <2 U/mL 0-3 Not Available [facility] ([facility]) [address] [place], [address], 05/31/2022 07:10:21 05/26/20 22 05/27/2022 H.PYL NICK,I GG/IG M ABS H. pylori, IgG abs 0.19 index _valu e 0.00-0 .79 Not Available [facility] ([facility]) [address] [place], [address], 05/31/2022 07:10:22 05/26/20 22 05/28/2022 H.PYL NICK,I GG/IG M ABS H pylori, IgM abs <9.0 units 0.0-8. 9 Not Available [facility] ([facility]) [address] [place], [address], 05/31/2022 07:10:22 05/26/20 22 05/28/2022 GLUTE N SENSI TIVIT Y SCREE N ttg/dgp screen NEGATI VE negati ve Not Available [facility] ([facility]) [address] [place], [address], 05/31/2022 07:10:22 05/26/20 22 05/30/2022 GLUTE N SENSI TIVIT Y SCREE N antigliadin IgG ([place]) 1 units 0-19 Not Available [facility] ([facility]) [address] [place], [address], 05/31/2022 07:10:22 05/26/20 22 05/30/2022 lab resul t [id number] wheat 0.89 kU/L class II abnormal Not Available [facility] ([facility]) [address] [place], [address], 05/31/2022 07:10:23 05/26/20 22 05/30/2022 lab resul t note: Commen t Not Available [facility] ([facility]) [address] [place], [address], 05/31/2022 07:10:24 05/26/20 22 05/26/2022 ALLER GENS (25) FOODS class description COMMEN T Not Available [facility] ([facility]) [address] [place], [address], 05/31/2022 07:10:24 05/26/20 22 05/30/2022 ALLER GENS (25) FOODS R480-HqT egg white <0.10 kU/L class 0 Not Available [facility] ([facility]) [address] [place], [address], 05/31/2022 07:10:24 05/26/20 22 05/30/2022 ALLER GENS (25) FOODS D022-NzR milk <0.10 kU/L class 0 Not Available [facility] ([facility]) [address] [place], [address], 05/31/2022 07:10:24 05/26/20 22 05/30/2022 ALLER GENS (25) FOODS V979-XvJ wheat TNP kU/L Not Available [facility] ([facility]) [address] [place], [address], 05/31/2022 07:10:24 05/26/20 22 05/30/2022 ALLER GENS (25) FOODS B913-FgI rye 0.79 kU/L class II abnormal Not Available [facility] ([facility]) [address] [place], [address], 05/31/2022 07:10:24 05/26/20 22 05/30/2022 ALLER GENS (25) FOODS K029-TcH barley 0.77 kU/L class II abnormal Not Available [facility] ([facility]) [address] [place], [address], 05/31/2022 07:10:24 05/26/20 22 05/30/2022 ALLER GENS (25) FOODS M139-UgM corn 0.65 kU/L class II abnormal Not Available [facility] ([facility]) [address] [place], [address], 05/31/2022 07:10:24 05/26/20 22 05/30/2022 ALLER GENS (25) FOODS U211-WsL peanut 0.91 kU/L class II abnormal Not Available [facility] ([facility]) [address] [place], [address], 05/31/2022 07:10:24 05/26/20 22 05/30/2022 ALLER GENS (25) FOODS J513-JtA soybean 0.70 kU/L class II abnormal Not Available [facility] ([facility]) [address] [place], [address], 05/31/2022 07:10:24 05/26/20 22 05/30/2022 ALLER GENS (25) FOODS D728-CgH shrimp <0.10 kU/L class 0 Not Available [facility] ([facility]) [address] [place], [address], 05/31/2022 07:10:24 05/26/20 22 05/30/2022 ALLER GENS (25) FOODS D138-GbQ tomato 0.82 kU/L class II abnormal Not Available [facility] ([facility]) [address] [place], [address], 05/31/2022 07:10:24 05/26/20 22 05/30/2022 ALLER GENS (25) FOODS W493-HcB pork <0.10 kU/L class 0 Not Available [facility] ([facility]) [address] [place], [address], 05/31/2022 07:10:24 05/26/20 22 05/30/2022 ALLER GENS (25) FOODS F779-BuB beef <0.10 kU/L class 0 Not Available [facility] ([facility]) [address] [place], [address], 05/31/2022 07:10:24 05/26/20 22 05/30/2022 ALLER GENS (25) FOODS R250-IiO orange 0.72 kU/L class II abnormal Not Available [facility] ([facility]) [address] [place], [address], 05/31/2022 07:10:24 05/26/20 22 05/30/2022 ALLER GENS (25) FOODS K710-NvD potato, white 0.80 kU/L class II abnormal Not Available [facility] ([facility]) [address] [place], [address], 05/31/2022 07:10:24 05/26/20 22 05/30/2022 ALLER GENS (25) FOODS V144-OhN strawberry 0.67 kU/L class II abnormal Not Available [facility] ([facility]) [address] [place], [address], 05/31/2022 07:10:24 05/26/20 22 05/30/2022 ALLER GENS (25) FOODS Q271-QhC yeast <0.10 kU/L class 0 Not Available [facility] ([facility]) [address] [place], [address], 05/31/2022 07:10:24 05/26/20 22 05/30/2022 ALLER GENS (25) FOODS B670-UoM apple 0.49 kU/L class I abnormal Not Available [facility] ([facility]) [address] [place], [address], 05/31/2022 07:10:24 05/26/20 22 05/30/2022 ALLER GENS (25) FOODS B863-MiG egg (yolk) <0.10 kU/L class 0 Not Available [facility] ([facility]) [address] [place], [address], 05/31/2022 07:10:24 05/26/20 22 05/30/2022 ALLER GENS (25) FOODS N381-NrS cheese, cheddar type <0.10 kU/L class 0 Not Available [facility] ([facility]) [address] [place], [address], 05/31/2022 07:10:24 05/26/20 22 05/30/2022 ALLER GENS (25) FOODS R494-IaG cheese, mold type <0.10 kU/L class 0 Not Available [facility] ([facility]) [address] [place], [address], 05/31/2022 07:10:24 05/26/20 22 05/30/2022 ALLER GENS (25) FOODS S788-QlO chicken <0.10 kU/L class 0 Not Available [facility] ([facility]) [address] [facility] [place], [address], 05/31/2022 07:10:24 05/26/20 22 05/30/2022 ALLER GENS (25) FOODS R319-LhY chocolate/ca rodriguez <0.10 kU/L class 0 Not Available [facility] ([facility]) [address] [place], [address], 05/31/2022 07:10:24 05/26/20 22 05/30/2022 ALLER GENS (25) FOODS S341-IgP coffee <0.10 kU/L class 0 Not Available [facility] ([facility]) [address] [place], [address], 05/31/2022 07:10:24 05/26/20 22 05/30/2022 ALLER GENS (25) FOODS H323-YkX tea <0.10 kU/L class 0 Not Available [facility] ([facility]) [address] [facility], [place], [address], 05/31/2022 07:10:24 05/26/20 22 05/30/2022 ALLER GENS (25) FOODS Y942-OgD chili pepper 0.69 kU/L class II abnormal Not Available [facility] ([facility]) [address] [place], [address], 05/31/2022 07:10:24 05/26/20 22 05/29/2022 URINE CULTU REMARI urine culture, routine FINAL REPORT abnormal Not Available [facility] ([facility]) [address] [place], [address], 05/31/2022 07:10:25 05/26/20 22 05/29/2022 URINE CULTU REMARI result 1 KLEBSI ANUM PNEUMO NIAE abnormal Not Available [facility] ([facility]) [address] [place], [address], 05/31/2022 07:10:25 05/26/20 22 05/29/2022 URINE CULTU RE, ROUTI NE antimicrobia l susceptibili ty COMMEN T Not Available [facility] ([facility]) [address] [facility], [place], [address], 05/31/2022 07:10:25 05/26/20 22 05/26/2022 urina lysis , dipst ick Unknown Analyte dark yellow Not Available [facility] [address], [place], [address], 05/26/2022 14:13:35 05/26/20 22 05/26/2022 urina lysis , dipst ick Unknown Analyte cloudy Not Available [facility] [place] [address], [place], [address], 05/26/2022 14:13:35 05/26/20 22 05/26/2022 urina lysis , dipst ick Unknown Analyte negati ve Not Available [place] [address] [facility] [address], [place], [address], 05/26/2022 14:13:35 05/26/20 22 05/26/2022 urina lysis , dipst ick Unknown Analyte negati ve Not Available [place] [address] [facility] [address], [place], [address], 05/26/2022 14:13:35 05/26/20 22 05/26/2022 urina lysis , dipst ick Unknown Analyte negati ve Not Available [place] [address] [facility] [address], [place], [address], 05/26/2022 14:13:35 05/26/20 22 05/26/2022 urina lysis , dipst ick Unknown Analyte 1,025 Not Available [facility] [place] [address] [facility] [address], [place], [address], 05/26/2022 14:13:35 05/26/20 22 05/26/2022 urina lysis , dipst ick Unknown Analyte small Not Available hoa pickett [address], [place], [address], 05/26/2022 14:13:35 05/26/20 22 05/26/2022 urina lysis , dipst ick Unknown Analyte 5.5 Not Available hoa pickett [address], [place], [address], 05/26/2022 14:13:35 05/26/20 22 05/26/2022 urina lysis , dipst ick Unknown Analyte negati ve Not Available telly [address], [place], [address], 05/26/2022 14:13:35 05/26/20 22 05/26/2022 urina lysis , dipst ick Unknown Analyte 0.2 Not Available hoa pickett [address], [place], [address], 05/26/2022 14:13:35 05/26/20 22 05/26/2022 urina lysis , dipst ick Unknown Analyte negati ve Not Available telly [address], [place], [address], 05/26/2022 14:13:35 05/26/20 22 05/26/2022 urina lysis , dipst ick Unknown Analyte large Not Available hoa pickett [address], [place], [address], 05/26/2022 14:13:35 06/16/20 22 06/17/2022 T3F+T 4F+TS H triiodothyro nine (T3), free 2.3 pg/mL 2.0-4. 4 Not Available [facility] ([facility]) [address] [facility], [place], [address], 06/17/2022 15:10:32 06/16/20 22 06/17/2022 T3F+T 4F+TS H T4,free(dire ct) 1.58 NG/dL 0.82-1 .77 Not Available [facility] ([facility]) [address] [facility], [place], [address], 06/17/2022 15:10:32 06/16/20 22 06/17/2022 T3F+T 4F+TS H TSH 0.301 uIU/m L 0.450- 4.500 below low normal Not Available [facility] ([facility]) [address] [facility], [place], [address], 06/17/2022 15:10:32 06/16/20 22 06/17/2022 CBC WITH DIFFE RENTI AL/PL ATELE T WBC 9.2 x10e3 /uL 3.4-10 .8 Not Available [facility] ([facility]) [address] [facility], [place], [address], 06/17/2022 15:10:33 06/16/20 22 06/17/2022 CBC WITH DIFFE RENTI AL/PL ATELE T RBC 5.11 x10e6 /uL 3.77-5 .28 Not Available [facility] ([facility]) [address] [place], [address], 06/17/2022 15:10:33 06/16/20 22 06/17/2022 CBC WITH DIFFE RENTI AL/PL ATELE T hemoglobin 12.8 g/dL 11.1-1 5.9 Not Available [facility] ([facility]) [address] [place], [address], 06/17/2022 15:10:33 06/16/20 22 06/17/2022 CBC WITH DIFFE RENTI AL/PL ATELE T hematocrit 43.9 % 34.0-4 6.6 Not Available [facility] ([facility]) [address] [facility], [place], [address], 06/17/2022 15:10:33 06/16/20 22 06/17/2022 CBC WITH DIFFE RENTI AL/PL ATELE T MCV 86 fL 79-97 Not Available [facility] ([facility]) [address] [facility], [place], [address], 06/17/2022 15:10:33 06/16/20 22 06/17/2022 CBC WITH DIFFE RENTI AL/PL ATELE T MCH 25.0 pg 26.6-3 3.0 below low normal Not Available [facility] ([facility]) [address] [facility], [place], [address], 06/17/2022 15:10:33 06/16/20 22 06/17/2022 CBC WITH DIFFE RENTI AL/PL ATELE T MCHC 29.2 g/dL 31.5-3 5.7 below low normal Not Available [facility] ([facility]) [address] [facility], [place], [address], 06/17/2022 15:10:33 06/16/20 22 06/17/2022 CBC WITH DIFFE RENTI AL/PL ATELE T RDW 13.9 % 11.7-1 5.4 Not Available [facility] ([facility]) [address] [facility], [place], [address], 06/17/2022 15:10:33 06/16/20 22 06/17/2022 CBC WITH DIFFE RENTI AL/PL ATELE T platelets 218 x10e3 /uL 150-45 0 Not Available [facility] ([facility]) [address] [facility], [place], [address], 06/17/2022 15:10:33 06/16/20 22 06/17/2022 CBC WITH DIFFE RENTI AL/PL ATELE T neutrophils 74 % not estab. Not Available [facility] ([facility]) [address] [facility], [place], [address], 06/17/2022 15:10:33 06/16/20 22 06/17/2022 CBC WITH DIFFE RENTI AL/PL ATELE T lymphs 15 % not estab. Not Available [facility] ([facility]) [address] [facility], [place], [address], 06/17/2022 15:10:33 06/16/20 22 06/17/2022 CBC WITH DIFFE RENTI AL/PL ATELE T monocytes 9 % not estab. Not Available [facility] ([facility]) [address] [facility], [place], [address], 06/17/2022 15:10:33 06/16/20 22 06/17/2022 CBC WITH DIFFE RENTI AL/PL ATELE T eos 1 % not estab. Not Available [facility] ([facility]) [address] [facility], [place], [address], 06/17/2022 15:10:33 06/16/20 22 06/17/2022 CBC WITH DIFFE RENTI AL/PL ATELE T basos 1 % not estab. Not Available [facility] ([facility]) [address] [facility], [place], [address], 06/17/2022 15:10:33 06/16/20 22 06/17/2022 CBC WITH DIFFE RENTI AL/PL ATELE T immature cells COMPUTATIONAL SCIENTIST Not Available [facility] ([facility]) [address] [facility], [place], [address], 06/17/2022 15:10:33 06/16/20 22 06/17/2022 CBC WITH DIFFE RENTI AL/PL ATELE T neutrophils (absolute) 6.8 x10e3 /uL 1.4-7. 0 Not Available [facility] ([facility]) [address] [facility], [place], [address], 06/17/2022 15:10:33 06/16/20 22 06/17/2022 CBC WITH DIFFE RENTI AL/PL ATELE T lymphs (absolute) 1.4 x10e3 /uL 0.7-3. 1 Not Available [facility] ([facility]) [address] [place], [address], 06/17/2022 15:10:33 06/16/20 22 06/17/2022 CBC WITH DIFFE RENTI AL/PL ATELE T monocytes(ab solute) 0.8 x10e3 /uL 0.1-0. 9 Not Available [facility] ([facility]) [address] [place], [address], 06/17/2022 15:10:33 06/16/20 22 06/17/2022 CBC WITH DIFFE RENTI AL/PL ATELE T eos (absolute) 0.1 x10e3 /uL 0.0-0. 4 Not Available [facility] ([facility]) [address] [place], [address], 06/17/2022 15:10:33 06/16/20 22 06/17/2022 CBC WITH DIFFE RENTI AL/PL ATELE T baso (absolute) 0.1 x10e3 /uL 0.0-0. 2 Not Available [facility] ([facility]) [address] [place], [address], 06/17/2022 15:10:33 06/16/20 22 06/17/2022 CBC WITH DIFFE RENTI AL/PL ATELE T immature granulocytes 0 % not estab. Not Available [facility] ([facility]) [address] [place], [address], 06/17/2022 15:10:33 06/16/20 22 06/17/2022 CBC WITH DIFFE RENTI AL/PL ATELE T immature grans (abs) 0.0 x10e3 /uL 0.0-0. 1 Not Available [facility] ([facility]) [address] [place], [address], 06/17/2022 15:10:33 06/16/20 22 06/17/2022 CBC WITH DIFFE RENTI AL/PL ATELE T NRBC COMPUTATIONAL SCIENTIST Not Available [facility] ([facility]) [address], [place], [address], 06/17/2022 15:10:33 06/16/20 22 06/17/2022 CBC WITH DIFFE RENTI AL/PL ATELE T hematology comments: COMPUTATIONAL SCIENTIST Not Available [facility] ([facility]) [address], [place], [address], 06/17/2022 15:10:33 06/16/20 22 06/17/2022 COMP. METAB OLIC PANEL (14) glucose 92 mg/dL 65-99 Not Available [facility] ([facility]) [address] [facility], [place], [address], 06/17/2022 15:10:34 06/16/20 22 06/17/2022 COMP. METAB OLIC PANEL (14) BUN 11 mg/dL 8-27 Not Available [facility] ([facility]) [address] [facility], [place], [address], 06/17/2022 15:10:34 06/16/20 22 06/17/2022 COMP. METAB OLIC PANEL (14) creatinine 1.17 mg/dL 0.57-1 .00 above high normal Not Available [facility] ([facility]) [address] [facility], [place], [address], 06/17/2022 15:10:34 06/16/20 22 06/17/2022 COMP. METAB OLIC PANEL (14) eGFR 51 mL/mi n/1.7 3 >59 below low normal Not Available [facility] ([facility]) [address] [facility], [place], [address], 06/17/2022 15:10:34 06/16/20 22 06/17/2022 COMP. METAB OLIC PANEL (14) BUN/creatini ne ratio 9 12-28 below low normal Not Available [facility] ([facility]) [address] [place] [place], [address], 06/17/2022 15:10:34 06/16/20 22 06/17/2022 COMP. METAB OLIC PANEL (14) sodium 144 mmol/ L 134-14 4 Not Available [facility] ([facility]) [address] [place] [place], [address], 06/17/2022 15:10:34 06/16/20 22 06/17/2022 COMP. METAB OLIC PANEL (14) potassium 4.7 mmol/ L 3.5-5. 2 Not Available [facility] ([facility]) [address] [facility], [place], [address], 06/17/2022 15:10:34 06/16/20 22 06/17/2022 COMP. METAB OLIC PANEL (14) chloride 106 mmol/ L 96-106 Not Available [facility] ([facility]) [address] [place] [place], [address], 06/17/2022 15:10:34 06/16/20 22 06/17/2022 COMP. METAB OLIC PANEL (14) carbon dioxide, total 22 mmol/ L 20-29 Not Available [facility] ([facility]) [address] [place], [address], 06/17/2022 15:10:34 06/16/20 22 06/17/2022 COMP. METAB OLIC PANEL (14) calcium 10.0 mg/dL 8.7-10 .3 Not Available [facility] ([facility]) [address] [place], [address], 06/17/2022 15:10:34 06/16/20 22 06/17/2022 COMP. METAB OLIC PANEL (14) protein, total 6.5 g/dL 6.0-8. 5 Not Available [facility] ([facility]) [address] [facility], [place], [address], 06/17/2022 15:10:34 06/16/20 22 06/17/2022 COMP. METAB OLIC PANEL (14) albumin 4.6 g/dL 3.8-4. 8 Not Available [facility] ([facility]) [address] [facility], [place], [address], 06/17/2022 15:10:34 06/16/20 22 06/17/2022 COMP. METAB OLIC PANEL (14) globulin, total 1.9 g/dL 1.5-4. 5 Not Available [facility] ([facility]) [address] [facility], [place], [address], 06/17/2022 15:10:34 06/16/20 22 06/17/2022 COMP. METAB OLIC PANEL (14) A/G ratio 2.4 1.2-2. 2 above high normal Not Available [facility] ([facility]) [address] [place] [place], [address], 06/17/2022 15:10:34 06/16/20 22 06/17/2022 COMP. METAB OLIC PANEL (14) bilirubin, total <0.2 mg/dL 0.0-1. 2 Not Available [facility] ([facility]) [address] [facility], [place], [address], 06/17/2022 15:10:34 06/16/20 22 06/17/2022 COMP. METAB OLIC PANEL (14) alkaline phosphatase 46 IU/L 44-121 Not Available [facility] ([facility]) [address] [place] [place], [address], 06/17/2022 15:10:34 06/16/20 22 06/17/2022 COMP. METAB OLIC PANEL (14) AST (SGOT) 14 IU/L 0-40 Not Available [facility] ([facility]) [address] [facility], [place], [address], 06/17/2022 15:10:34 06/16/20 22 06/17/2022 COMP. METAB OLIC PANEL (14) ALT (SGPT) 10 IU/L 0-32 Not Available [facility] ([facility]) [address] [facility], [place], [address], 06/17/2022 15:10:34 06/16/20 22 06/17/2022 ALBUM IN/CR EAT RATIO , RANDO M UR creatinine, urine 314.9 mg/dL not estab. Not Available [facility] ([facility]) [address] [facility], [place], [address], 06/17/2022 15:10:35 06/16/20 22 06/17/2022 ALBUM IN/CR EAT RATIO , RANDO M UR albumin, urine 162.4 ug/mL not estab. Not Available [facility] ([facility]) [address] [facility], [place], [address], 06/17/2022 15:10:35 06/16/20 22 06/17/2022 ALBUM IN/CR EAT RATIO , RANDO M UR alb/creat ratio 52 mg/g_ creat 0-29 above high normal Not Available [facility] ([facility]) [address] [place], [address], 06/17/2022 15:10:35 06/16/20 22 06/17/2022 VITAM IN D, 25-HY DROXY vitamin D, 25-hydroxy 62.9 NG/mL 30.0-1 00.0 Not Available [facility] ([facility]) [address] [place], [address], 06/17/2022 15:10:35 06/16/20 22 06/16/2022 urina lysis , dipst ick Unknown Analyte yellow Not Available _ne_[address] [facility], [place], [address], 06/16/2022 10:26:31 06/16/20 22 06/16/2022 urina lysis , dipst ick Unknown Analyte clear Not Available [facility] [place] [address], [place], [address], 06/16/2022 10:26:31 06/16/20 22 06/16/2022 urina lysis , dipst ick Unknown Analyte negati ve Not Available t[place] [address], [place], [address], 06/16/2022 10:26:31 06/16/20 22 06/16/2022 urina lysis , dipst ick Unknown Analyte small Not Available ho[facility] [place] [address] [facility] [address], [place], [address], 06/16/2022 10:26:31 06/16/20 22 06/16/2022 urina lysis , dipst ick Unknown Analyte negati ve Not Available [place] [address] [facility] [address], [place], [address], 06/16/2022 10:26:31 06/16/20 22 06/16/2022 urina lysis , dipst ick Unknown Analyte 1,030 Not Available ho[facility] [place] [address] [facility] [address], [place], [address], 06/16/2022 10:26:31 06/16/20 22 06/16/2022 urina lysis , dipst ick Unknown Analyte negati ve Not Available [place] [address] [facility] [address], [place], [address], 06/16/2022 10:26:31 06/16/20 22 06/16/2022 urina lysis , dipst ick Unknown Analyte 5.5 Not Available [facility] [address] [facility] [address], [place], [address], 06/16/2022 10:26:31 06/16/20 22 06/16/2022 urina lysis , dipst ick Unknown Analyte 30 Not Available [facility] [address], [place], [address], 06/16/2022 10:26:31 06/16/20 22 06/16/2022 urina lysis , dipst ick Unknown Analyte 0.2 Not Available [facility] [address], [place], [address], 06/16/2022 10:26:31 06/16/20 22 06/16/2022 urina lysis , dipst ick Unknown Analyte negati ve Not Available [address], [place], [address], 06/16/2022 10:26:31 06/16/20 22 06/16/2022 urina lysis , dipst ick Unknown Analyte negati ve Not Available [address], [place], [address], 06/16/2022 10:26:31 05/24/20 22 05/22/2022 MAMMO , scree kvng, digit al, bilat eral No observ ation record ed. [id number] [employer] K [address] [place] [address] [facility] [address], [place], [address], 05/26/2022 06:13:26 08/26/20 22 11/06/2021 imagi ng/di cristinaos tic resul t No observ ation record ed. [id number] Not Available 08/26/20 01:00:09 Result Notes None recorded. 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; W/U Status: confirmed Not Available [facility] 2 13:41:37 Moderate recurrent major depression Active 2020 Depression, major, recurrent, moderate; W/U Status: confirmed Not Available [facility] 2 13:41:37 Vitamin D deficiency Active 2018 Vitamin D deficiency, unspecified; W/U Status: confirmed Not Available [facility] 2 13:41:37 Headache disorder Active 2020 Other headache syndrome; W/U Status: confirmed Not Available [facility] 2 13:41:37 Mixed hyperlipidemia Active 2018 Mixed hyperlipidem ia; W/U Status: confirmed Not Available [facility] 2 13:41:37 Transplanted liver present Active 2020 History of liver transplant; W/U Status: confirmed Tr ansplanted liver; W/U Status: confirmed; Start Date : 07/12/2019 Not Available [facility] 2 13:41:37 Hyperglycemia due to type 2 diabetes mellitus Active 2018 Type 2 diabetes mellitus with hyperglycemi a; W/U Status: confirmed Not Available [facility] 2 13:41:37 History of renal transplant Active 2018 Kidney transplant status; R kidney transplant W /U Status: confirmed Not Available [facility] 2 13:41:37 Insomnia Active 2018 Other insomnia; W/U Status: confirmed Not Available [facility] 2 13:41:37 Transplanted kidney present Active 2020 History of kidney transplant; W/U Status: confirmed Not Available [facility] 2 13:41:[address] Concept Active 2020 Anxiety; W/U Status: confirmed Not Available [facility] 2 13:41:37 Chronic idiopathic constipation Active 2020 Chronic idiopathic constipation ; W/U Status: confirmed Not Available [facility] 2 13:41:37 Allergic rhinitis Active 2020 Other allergic rhinitis; W/U Status: confirmed Not Available [facility] 2 13:41:37 Hypothyroidism Active 2020 Other specified hypothyroidi sm; W/U Status: confirmed; Start Date : 07/12/2019 H linkothyroidis m; W/U Status: confirmed Not Available [facility] 2 13:41:37 Essential hypertension Active 2018 Essential (primary) hypertension ; W/U Status: confirmed Not Available [facility] 2 13:41:37 Seasonal allergic rhinitis Active 2021 Not Available [facility] 2 13:41:37 Thyroid stimulating hormone level above reference range Active 2021 Not Available [facility] 2 13:41:37 White blood cell count outside reference range Active 2021 Not Available [facility] 2 13:41:37 Acute urinary tract infection Active 2021 Not Available [facility] 2 13:41:37 Cough Active 2021 Not Available [facility] 2 13:41:37 Drug-induced immunodeficiency Active 2021 Not Available [facility] 2 13:41:37 Excessive belching Active 2021 Not Available [facility] 2 13:41:37 Immunodeficiency caused by [facility] therapeutic use of drug Active 2021 Not Available [facility] 2 13:41:37 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 Procedures Surgical History Date Name Laterality Status Provider Name and Address Organization Details Recorded Time 04/09/20 22 Q A Presence or Absence of urinary incontinence was assessed 1090F completed Janel Hinds [facility] 04/09/2022 08:38:45 04/09/20 22 Q A Medication Review was completed today 1159F/1160F completed Janel Hinds [facility] 04/09/2022 08:38:45 04/09/20 22 Q Medications obtained, updated, or reviewed G8427 [facility] 04/09/2022 08:38:45 04/09/20 22 Q Activities of daily living were assessed(functio nal status) 1170F completed Janel Hinds [facility] 04/09/2022 08:38:45 04/09/20 22 AWV 0438/0439 [facility] 04/09/2022 08:38:45 04/09/20 22 Q Advanced Care plan not currently documented/will provide plan information today 1124F [facility]22 08:38:45 03/11/20 22 [id number] reporting statement for [facility] completed Che Penn NP [address], [place], [address], [facility] 03/12/2022 08:19:15 03/11/20 22 HOLD CODE: TELE ayaka Penn NP [address], [place], [address], [facility] 03/12/2022 08:19:14 03/10/20 22 Q A Presence or Absence of urinary incontinence was assessed 1090F cancelled Janel Hinds [facility] 03/10/2022 09:04:21 03/10/20 22 Q A Medication Review was completed today 1159F/1160F cancelled Janel Hinds [facility] 03/10/2022 09:04:21 03/10/20 22 Q Medications obtained, updated, or reviewed G8427 cancelled Janel Hinds [facility] 03/10/2022 09:04:21 03/10/20 22 Q Activities of daily living were assessed(functio nal status) 1170F cancelled [facility] 03/10/2022 09:04:21 03/10/20 22 AWV 0438/0439 [facility] 03/10/2022 09:04:21 03/10/20 22 Q Advanced Care plan not currently documented/will provide plan information today 1124F cancelled Janel Hinds [facility] 03/10/2022 09:04:21 Imaging Results Imaging Date Name Status LastModified by Organiz ation Details LastModified Time 05/22/2022 MAMMO, screening, digital, bilateral completed [id number] [employer] K [address] [place] [address] [address], [place], [address], 05/26/2022 06:13:26 11/06/2021 imaging/diagno stic result completed [id number] Information not available 08/26/2022 01:00:09 Procedure Notes None recorded. Medical Equipment None Reported. Allergies Allergen ID Allergen Name Allergen Category Reaction Reaction Severity Criticality Documentation Date Start Date Code Code System Note Provider Name and Address Organization Details Recorded Time 520785 house dust allergeni c extract environme nt,medica tion respirato ry distress moderate Not available 03/11/2022 54759 9 RxNorm Purvi Huitron [facility] 2 15:58:26 649855 azelastin e medicatio n headache Not available Not available 04/09/2022 24783 RxNorm Not Available [facility] 2 13:41:38 Medications Name Sig Start Date Stop Date Status Note LastModified by Organization Details LastModified Time Prescripti on - Renewal active Misc.-R X'S REQUEST ED^2018 LANCET RX Not Available Not Available Not Available Prescripti on - Prior Authorizat ion Request active Misc.-P RIOR AUTH^PA _REMIGIO Not Available Not Available Not Available promethazi ne-DM 6.25 mg-15 mg/5 mL oral syrup Take 5 mL every 4-6 hours by oral route as needed for 10 days. 2021 active Not Available Not Available Not Avai lable nitrofuran toin macrocryst al 50 mg capsule TAKE 1 CAPSULE BY MOUTH NEEDED AFTER INTERCOU RSE active Not Available Not Available No t Available carvedilol 12.5 mg tablet TAKE 1 TABLET BY MOUTH TWICE A DAY WITH FOOD FOR 90 DAYS active Not Available Not Available No t Available trazodone 50 mg tablet TAKE 1 TABLET BY MOUTH EVERY DAY AT BEDTIME NEEDED FOR 90 DAYS active Not Available Not Available No t Available cetirizine 10 mg tablet Take 1 tablet every day by oral route for 30 days. 06/16 completed Not Available Not Available Not Available atorvastat in 10 mg tablet TAKE 1 TABLET BY MOUTH EVERY DAY active Not Available Not Available No t Available azithromyc in 250 mg tablet TAKE 2 TABLETS BY MOUTH TODAY, THEN TAKE 1 TABLET DAILY FOR 4 DAYS 04/09 completed Not Available Not Available Not Available mycophenol ate mofetil 250 mg capsule TAKE 2 CAPSULES BY MOUTH TWICE A DAY FOR 90 DAYS active Not Available Not Available No t Available phenazopyr idine 200 mg tablet TAKE 1 TABLET BY MOUTH THREE TIMES A DAY FOR 2 DAYS 06/16 completed Not Available Not Available Not Available prednisone 5 mg tablet TAKE 1 TABLET BY MOUTH EVERY DAY active Not Available Not Available No t Available amlodipine 5 mg tablet TAKE 1 TABLET BY MOUTH EVERY DAY active Not Available Not Available No t Available sulfametho xazole 800 mg-trimeth oprim 160 mg tablet TAKE 1 TABLET BY MOUTH EVERY 12 HOURS FOR 7 DAYS 06/16 completed Not Available Not Available Not Available acyclovir 800 mg tablet 1 TABLET ORALLY NEEDED 30 DAYS 04/09 completed Not Available Not Available Not Available meloxicam 7.5 mg tablet TAKE 1 TABLET BY MOUTH EVERY DAY FOR 30 DAYS 04/09 completed Not Available Not Available Not Available levothyrox ine 100 mcg tablet TAKE 1 TABLET BY MOUTH ON EMPTY STOMACH IN THE MORNING FOR 90 DAYS 06/16 completed Not Available Not Available Not Available alendronat e 35 mg tablet TAKE 1 TABLET EVERY WEEK BY ORAL ROUTE FOR 84 DAYS. active Not Available Not Available No t Available levothyrox ine 88 mcg tablet TAKE 1 TABLET BY MOUTH EVERY DAY active Not Available Not Available No t Available meclizine 25 mg tablet TAKE 1 TABLET BY MOUTH THREE TIMES A DAY FOR 10 DAYS 04/09 completed Not Available Not Available Not Available cephalexin 500 mg capsule TAKE 1 CAPSULE BY MOUTH THREE TIMES A DAY active Not Available Not Available No t Available hydroxyzin e HCl 25 mg tablet TAKE 1 TABLET BY MOUTH EVERYDAY AT BEDTIME active Not Available Not Available No t Available zolpidem 5 mg tablet TAKE 1 TABLET BY MOUTH AT BEDTIME NEEDED FOR 30 DAYS 04/09 completed Not Available Not Available Not Available ergocalcif kat (vitamin D2) 1,250 mcg (50,000 unit) capsule TAKE 1 CAPSULE BY MOUTH EVERY WEEK FOR 84 DAYS NOT COVERED active Not Available Not Available No t Available azelastine 137 mcg (0.1 %) nasal spray aerosol SPRAY 2 SPRAYS (274 MCG) IN EACH NOSTRIL BY INTRANAS AL ROUTE 2 TIMES PER DAY FOR 30 DAYS active Not Available Not Available No t Available epinephrin e 0.3 mg/0.3 mL injection, auto-injec tor USE AD. GO TO [facility] AFTER USE. active Not Available Not Available No t Available estradiol 0.01% (0.1 mg/gram) vaginal cream INSERT 1 GRAM INTO VAGINA THREE TIMES A WEEK active Not Available Not Available No t Available zolpidem 10 mg tablet TAKE 1 TABLET BY MOUTH EVERY NIGHT AT BEDTIME 04/09 completed Not Available Not Available Not Available albuterol sulfate HFA 90 mcg/actuat ion aerosol inhaler INHALE 2 PUFFS EVERY 4 HOURS BY INHALATI ON ROUTE NEEDED active Not Available Not Available No t Available fluticason e propionate 50 mcg/actuat ion nasal spray,susp ension SPRAY 1 SPRAY EVERY DAY BY INTRANAS AL ROUTE FOR 90 DAYS. active Not Available Not Available No t Available tacrolimus 1 mg capsule, immediate- release TAKE 2 CAPSULES BY MOUTH IN THE MORNIN AND 1 CAPSUL IN THE EVENING active Not Available Not Available No t Available cholecalci ferol (vitamin D3) 125 mcg (5,000 unit) capsule TAKE 1 CAPSULE EVERY DAY BY ORAL ROUTE FOR 30 DAYS. 06/16 completed Not Available Not Available Not Available loratadine 10 mg tablet TAKE 1 TABLET BY MOUTH EVERY DAY FOR 30 DAYS 04/09 completed Not Available Not Available Not Available Novolog FlexPen U-100 Insulin aspart 100 unit/mL (3 mL) subcutaneo us INJECT 10 UNITS EVERY DAY BY SUBCUTAN EOUS ROUTE DIRECTED FOR 90 DAYS. active Not Available Not Available No t Available nitrofuran toin monohydrat e/macrocry stals 100 mg capsule TAKE 1 CAPSULE BY MOUTH EVERY 12 HOURS FOR 5 DAYS 06/16 completed Not Available Not Available Not Available duloxetine 30 mg capsule,de layed release TAKE 1 CAPSULE BY MOUTH EVERY DAY FOR 30 DAYS 04/09 completed Not Available Not Available Not Available Humalog KwikPen (U-100) Insulin 100 unit/mL subcutaneo us TAKE 10 UNITS SUBCUTAN EOUSLY THREE TIMES A DAY 30 DAY(S) active Not Available Not Available No t Available azelastine 205.5 mcg (0.15 %) nasal spray USE 2 SPRAYS (411 MCG) IN EACH NOSTRIL BY INTRANAS AL ROUTE 2 TIMES PER DAY FOR 30 DAYS active Not Available Not Available No t Available Tresiba FlexTouch U-100 insulin 100 unit/mL (3 mL) subcutaneo us pen INJECT 30 UNITS ONCE A DAY SUBCUTAN EOUSLY active Not Available Not Available No t Available BD Ultra-Fine Micro Pen Needle 32 gauge x 1/4 DIRECTED TWICE A DAY 30 DAYS active Not Available Not Available No t Available Ozempic 0.25 mg or 0.5 mg (2 mg/1.5 mL) subcutaneo us pen injector active Not Available Not Available Not Available BD Veo Insulin Syringe Ultra-Fine 0.3 mL 31 gauge x 15/64 INJECT 3 TIMES A DAY active Not Available Not Available No t Available BD Kristen 2nd Gen Pen Needle 32 gauge x 5/32 DIRECTED TWICE A DAY 30 DAYS active Not Available Not Available No t Available Trulicity 4.5 mg/0.5 mL subcutaneo us pen injector DIRECTED SUBCUTAN EOUSLY ONCE A WEEK 90 DAYS active Not Available Not Available No t Available Ozempic 1 mg/dose (4 mg/3 mL) subcutaneo us pen injector INJECT 1 MG SUBCUTAN EOUSLY ONCE A WEEK 90 DAYS 2021 active Not Available Not Available Not Avai lable Ozempic 2 mg/dose (8 mg/3 mL) subcutaneo us pen injector INJECT 2 MG SUBCUTAN EOUSLY ONCE A WEEK 90 DAYS active Not Available Not Available No t Available Lagevrio 200 mg capsule (EUA) TAKE 4 CAPSULES BY MOUTH EVERY 12 HOURS FOR 5 DAYS active Not Available Not Available No t Available Vitals Date Recorded Body weight Body height Body mass index (BMI) Heart rate Oxygen saturation Oxygen saturation in Arterial blood by Pulse oximetry Respiratory rate Body temperature Systolic blood pressure Diastolic blood pressure Provider Name and Address Organization Details Last Updated DateTime 1 16006.1 8683 g 160.02 cm 28.162 5 kg/m2 96 /min 96 % 96 % 17 /min 97.3 [degF] 135 mm[Hg] 86 mm[Hg] Not Available [facility] 2 20:07:42 Date Recorded Body weight Body height Body mass index (BMI) Heart rate Oxygen saturation Oxygen saturation in Arterial blood by Pulse oximetry Respiratory rate Body temperature Systolic blood pressure Diastolic blood pressure Provider Name and Address Organization Details Last Updated DateTime 9 90861.3 3342 g 160.02 cm 29.402 4 kg/m2 72 /min 94 % 94 % 18 /min 97.9 [degF] 126 mm[Hg] 80 mm[Hg] Not Available [facility] 2 20:07:42 Date Recorded Body weight Body height Body mass index (BMI) Provider Name and Address Organization Details Last Updated DateTime 06/07/2021 73754.7029 g 160.02 cm 30.1109 kg/m2 Not Available [facility] 01/20/2022 20:07:43 Date Recorded Body height Body mass index (BMI) Body weight Provider Name and Address Organization Details Last Updated DateTime 03/11/2022 160.02 cm 28.2 kg/m2 51168.19 g Purvi Huitron Replaced by [facility] 03/11/2022 16:05:04 Date Recorded Body height Body mass index (BMI) Body weight Respiratory rate Body temperature Heart rate Oxygen saturation Oxygen saturation in Arterial blood by Pulse oximetry Systolic blood pressure Diastolic blood pressure Provider Name and Address Organization Details Last Updated DateTime 2 160.02 cm 24.1 kg/m2 16781.5 6 g 14 /min 96.9 [degF] 86 /min 96 % 96 % 115 mm[Hg] 70 mm[Hg] Janel Hinds Replaced by [facility] 2 08:40:34 Date Recorded Body temperature Body weight Body height Body mass index (BMI) Heart rate Oxygen saturation Oxygen saturation in Arterial blood by Pulse oximetry Respiratory rate Systolic blood pressure Diastolic blood pressure Provider Name and Address Organization Details Last Updated DateTime 2 97.6 [degF] 38300.4 4787 g 160.02 cm 26.75 kg/m2 88 /min 98 % 98 % 18 /min 111 mm[Hg] 68 mm[Hg] Not Available [facility] 2 16:43:58 Date Recorded Body height Body mass index (BMI) Body weight Heart rate Respiratory rate Body temperature Oxygen saturation Oxygen saturation in Arterial blood by Pulse oximetry Systolic blood pressure Diastolic blood pressure Provider Name and Address Organization Details Last Updated DateTime 2 160.02 cm 23.6 kg/m2 21658.7 9 g 97 /min 17 /min 98.6 [degF] 97 % 97 % 111 mm[Hg] 62 mm[Hg] Kimberly Zaldivar Replaced by [facility] 2 14:11:55 Date Recorded Body height Body mass index (BMI) Body weight Respiratory rate Body temperature Oxygen saturation Oxygen saturation in Arterial blood by Pulse oximetry Heart rate Systolic blood pressure Diastolic blood pressure Provider Name and Address Organization Details Last Updated DateTime 2 160.02 cm 23.2 kg/m2 10953.8 8 g 17 /min 97.3 [degF] 98 % 98 % 66 /min 107 mm[Hg] 50 mm[Hg] Janel Hinds Replaced by [facility] 2 09:42:21 Social History Question Answer Notes LastModified by Organizat ion Details LastModified Time Tobacco Smoking Status Never Smoker Purvi lau Replaced by [facility] 03/11/2022 16:00:25 Do You Have An Advance Directive? No [email or web address] Information not available 03/11/2022 What Is Your Level Of Alcohol Consumption? Occasional [email or web address] Information not available 03/11/2022 Are You Blind Or Do You Have Difficulty Seeing? No [email or web address] Information not available 03/11/2022 Are You Currently Employed? No [email or web address] Information not available 03/11/2022 Are You Deaf Or Do You Have Serious Difficulty Hearing? No [email or web address] Information not available 03/11/2022 What Type Of Diet Are You Following? REGULAR [email or web address] Information not available 03/11/2022 What Is The Highest Grade Or Level Of School You Have Completed Or The Highest Degree You Have Received? [id number] [email or web address] Information not available 03/11/2022 How Many Days Of Moderate To Strenuous Exercise, Like A Brisk Walk, Did You Do In The Last 7 Days? 0 [email or web address] Information not available 03/11/2022 Have You Had An Unplanned Hospital Admission In The Last Year? No Information not available 03/11/2022 Have You Had An Unplanned Hospital Admission In The Last 30 Days? No [email or web address] Information not available 03/11/2022 Have You Had An ER Visit Since You Were Last Seen? No Information not available 03/11/2022 Do You Have A Medical Power Of Business Programmer? Yes [email or web address] Information not available 03/11/2022 How Many Children Do You Have? 4 Information not available 03/11/2022 Do You Use Protection During Sex? No [email or web address] Information not available 03/11/2022 What Is Your Relationship Status? Domestic Partner Information not available 03/11/2022 Do You Use Your Seat Belt Or Car Seat Routinely? Yes [email or web address] Information not available 03/11/2022 Are You Sexually Active? Yes [email or web address] Information not available 03/11/2022 Do You Have Smoke And Carbon Monoxide Detectors In Your Home? Yes [email or web address] Information not available 03/11/2022 Are There Any Smokers In Your House? No [email or web address] Information not available 03/11/2022 Do You Feel Stressed (tense, Restless, Nervous, Or Anxious, Or Unable To Sleep At Night)? [id number] [email or web address] Information not available 03/11/2022 Do You Use Any Illicit Or Recreational Drugs? Yes [email or web address] Information not available 03/11/2022 Do You Use Sunscreen Routinely? No [email or web address] Information not available 03/11/2022 How Many Days In The Past Year Have You Consumed 4 Or More Drinks? 0 [email or web address] Information no t available 03/11/2022 Sex: Female Functional Status Question Answer Note LastModified by Organizat ion Details LastModified Time Do you have difficulty walking or climbing stairs? No [email or web address] Information not available 03/11/2022 Are you able to walk? YESWOREST [email or web address] Information not available 03/11/2022 Are you able to care for yourself? Yes Information not available 03/11/2022 Do you have difficulty dressing or bathing? No [email or web address] Information not available 03/11/2022 Mental Status Question Answer Note LastModified by Organization D etails LastModified Time Do you have difficulty concentrating, remembering or making decisions? No [email or web address] Information no t available 03/11/2022 Family History Relationship Description Onset Age of this Age Resolved Age Notes Mother Family history unknown Father Family history unknown Notes:FamilyHistoryDetails: COMMENTS:3 brother(s) , 2 sister(s) - healthy. 2 son(s) , 2 daughter(s) - healthy Father: Notes: Mother: Notes: NOTE: Notes: mom: COPD, paranoid schizophrenia dad: unknown Medical History Condition Response Diabetes Y Hepatitis Y Gynecological HistoryNo gynecological history recorded. Obstetrics History GPAL:G 0 P 0 0 0 0 Immunizations Vaccine Type Date Status Provider Name and Address Organization Details Recorded Time COVID-19, mRNA, LNP-S, PF, 30 mcg/0.3 mL dose 08/16/2021 completed [facility] 03/11/2022 15:58:10 Influenza, MDCK, quadrivalent, PF 11/11/2017 completed Purvi [facility] 03/11/2022 15:58:10 COVID-19, mRNA, LNP-S, PF, 30 mcg/0.3 mL dose 11/20/2020 completed [facility]vi [facility] 03/11/2022 15:58:10 COVID-19, mRNA, LNP-S, PF, 30 mcg/0.3 mL dose 01/04/2021 completed Purvi Huitron [facility], [facility] 03/11/2022 15:58:10 Influenza, high-dose, trivalent, PF 06/22/2019 completed Purvi Morrisx [facility], [facility] 03/11/2022 15:58:10 zoster recombinant 09/11/2021 completed Not Available [facility] 01/20/2022 16:40:17 Influenza, split virus, quadrivalent, PF 09/11/2021 completed Janel Hinds [facility], [facility] 06/16/2022 09:43:03 Past Encounters Encounter ID Performer Location Encounter Start Date Encounter Closed Date Diagnosis/Indication Diagnosis SNOMED-CT Code [id number] Che ORTIZ Penn [place] [place] [address] 03/11/2022 15:13:47 03/11/2022 17:11:26 Body mass index 25-29 - overweight 693568529 COVID-19 704832545 Cough 13628558 Dizziness and giddiness 424056310 Hyperglyce alessia due to type 2 diabetes mellitus 878679068204030 Moderate r ecurrent major depression 45880534 Type 2 roxana betes mellitus 24228212 History of tissue/organ recipient 653120056 Drug-induc ed immunodeficiency 226827482 [id number] Kimberly Zaldivar [place] [place] [address] 04/09/2022 08:13:43 04/09/2022 09:42:03 Advance directive discussed with patient 538934939 Depression screening 171 649571 Seasonal a llergic rhinitis 090997361 Vaccination needed 59917 8731229605 Screening for malignant neoplasm of breast 839119393 Adult heal th examination 214940223 Essential hypertension 55759907 History of renal transplant 592243354 Hyperglyce alessia due to type 2 diabetes mellitus 910977472711696 Hypothyroidism 15899281 Mixed hyperlipidemia 267 815306 Screening for osteoporosis 138662641 Long-term current use of insulin 899430240 Scoliosis deformity of spine 076318448 Transplant ed liver present 916876483 Vitamin D deficiency 347 14313 History of tissue/organ recipient 411210719 Leukocytes in urine 2757 06480 [id number] Janel Hinds [place] [address] [address] 06/16/2022 08:56:54 06/16/2022 11:13:44 Vitamin D deficiency 80371327 White bloo d cell count outside reference range 792645094 Immunodefi ciency caused by [facility] therapeutic use of drug 006216292304716 03 History of renal transplant 381458548 Hypothyroidism 63496614 Proteinuri c nephropathy due to diabetes mellitus 846595920 Hyperglyce alessia due to type 2 diabetes mellitus 029284889667250 Allergic rhinitis 819478 04 [id number] RUBIA Noble [place] [address] [address] 05/26/2022 13:43:45 05/26/2022 15:47:23 Increased frequency of urination 428202152 Leukocytes in urine 2757 10173 Blood in urine 38221096 Recurrent urinary tract infection 250542771 Vaccination needed 00630 4801806405 Excessive belching 56900 7000 History of renal transplant 718206129 Mixed hyperlipidemia 267 139422 Vitamin D deficiency 347 76908 Hyperglyce alessia due to type 2 diabetes mellitus 685196839364069 Essential hypertension 42003882 Allergic rhinitis 192469 04 Immunodefi ciency 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 therapeutic use of drug 288935525069285 03 Health Concerns Section Related Observation LastModified by Organization Detai ls LastModified Time None Recorded Concern Status LastModified by Organization Details LastModified Time None Recorded Advance Directives Directive N: Payers Encounter Date Sequence Insurance Name Policy Number Policy [employer] Covered Member ID [id number] Member ID Guarantor Name 06/16/2022 2 [place] Catarina Almeida [id number] Catarina Almeida 06/16/2022 1 [facility] (MEDICARE REPLACEMENT/A DVANTAGE - PPO) [id number] Catarina Almeida [id number] Catarina Almeida 05/26/2022 2 [place] Catarina Almeida [id number] Catarina Cruz 05/26/2022 1 [facility] (MEDICARE REPLACEMENT/A DVANTAGE - PPO) [id number] Catarina Almeida [id number] Catarina Juan Pablo 04/09/2022 2 [place] Catarina Almeida [id number] Catarina Almeida 04/09/2022 1 [facility] (MEDICARE REPLACEMENT/A DVANTAGE - PPO) [id number] Catarina Almeida [id number] Catarina Almeida 03/11/2022 1 [employer] (MEDICARE REPLACEMENT/A DVANTAGE - PPO) Catarina Almeida [id number] Catarina Almeida 03/11/2022 2 [place] Catarina Almeida [id number] Catarina Cruz Notes Date Note Type Note Provider Name and Address Organization Details Recorded Time 03/11/2022 text/html HPI Notes: Sinusitis/Allergy Reported by patient. Associated Symptoms: nasal discharge from nostrils; cough; headache ; facial pain ; sinus pain ; sore throat; nasal discharge; ear fullness I confirm that I received verbal consent from the patient for the virtual visit. This telemedicine encounter was performed with video enabled for full/partial visit. The patient's blood pressure was self-reported by using a digitally automated BP cuff. Yes Che Penn NP [address] [facility] [address], [place], [address], [facility] 05/06/2022 10:32:49 04/09/2022 text/html HPI Notes: Medic are AWV Reported by patient. Diet and Nutrition: healthy diet Medication Review: has medications at home and can afford medications; taking medications as prescribed and directed Fracture Risk: no history of fractures; no recent explained fracture; no sudden unexplained fractures; no previous musculoskeletal injuries Physical Activity: exercises on a regular basis; recent increase in physical activity; good physical condition Depression Risk: Assessed by PHQ 2/9, see results Orientation: no disorientation to time; no disorientation to date; no disorientation to place Concentration and Memory: no decreased concentrating ability; no memory lapses or loss; does not forget words Speech/Motor difficulties: no speech difficulties; no difficulty expressing formulated concepts; no difficulty with fine manipulative tasks; no difficulty writing/copying; no slowed reaction time; does not knock things over when trying to pick them up Hearing: no loss of hearing Vision: no vision problems Activities of Daily Living: able to bathe with limited or no assistance; able to contol urination and bowels; able to dress with limited or no assistance; able to feed self with limited or no assistance; able to get out of chair or bed with limited or no assistance; able to groom with limited or no assistance; able to toilet with limited or no assistance Instrumental Activities of Daily Living: able to do house work with limited or no assistance; able to grocery shop with limited or no assistance; able to manage medications with limited or no assistance; able to manage money with limited or no assistance; able to prepare meals with limited or no assistance; able to use the phone with limited or no assistance Home Safety: no unsafe [place]; no unsafe stairs; no unsafe gas appliances; working smoke/CO detectors; wears protective head gear for biking/high velocity; use of seatbelts; practicing 'safer sex'; no vision or hearing loss while driving; no fire arms; has hand bars in the bathroom/shower; good lighting in the home Opioid Use Assessment Reported by patient. Current Use of Opioids : no use of opioids (no further questions required) Sinusitis/Allergy Reported by patient. Quality: no pain; no itching; no hoarseness; no throbbing; minimal discomfort Severity: no pain; does not limit daily activities; no frequent breathing through the mouth; no nosebleeds (epistaxis); no snoring Duration: frequent Onset/Timing: recurring Context: no recent upper respiratory infection; no recent sick contacts; worse with seasonal allergen exposure Alleviating factors: nothing gives relief Aggravating factors: not worse with change in medication; not worse during an upper respiratory infection (a cold); worse when allergies are active Associated Symptoms: no fever; no weight loss; no cough; no hemoptysis; no hematemesis; no difficulty breathing; no feeling of strangulation; no nausea or vomiting; no facial pain; no nasal passage blockage; no pain behind the eyes; no skin itching; nasal discharge from both nostrils; headache forehead; nasal itching; eye itching Risk Factors: no current smoking or tobacco use; no history of smoking; no increased stress; no family history of allergies; no history of nasal trauma; no allergy to aspirin; no history of nasal polyps; no history of asthma; no chemotherapy; no DM; no HIV; no immunodeficiency Patient is here for their Medicare AW evaluation as well as complete preventative evaluation including full physical exam as well as full review and ACTIVE MANAGEMENT of any chronic medical issues and any new issues reported. Kimberly Zen [facility] 04/09/2022 09:56:29 05/26/2022 text/html HPI Notes: Recur rent UTI Reported by patient. Severity: severe Duration: constant Onset/Timin weeks Context: culture results: Associated Symptoms: frequency; urgency; nocturia; hematuria RUBIA Noble [address], [place], [address], [facility] 05/26/2022 17:26:48 06/16/2022 text/html HPI Notes: Pt is here for a F/U repeat Labs Comp, Thyroid Levels and Vit D recheck Also a repeat UA Janel Hinds [facility] Replaced by [facility] 06/16/2022 10:28:33 OBGyn Episode No OBEpisode recorded.
--- OUTSIDE RECORDS SUMMARY | 2024-03-17 16:19 | XMS_ITS | Data Portability ---
Author Organization [facility] Address [address] [facility] [address] [facility] [address] [place] [address] Care Team Providers Care Interlocking Installer Name Role Phone MARC FUENTES Primary Care Provider [phone] Assessment Encounter Date Assessment Date Assessment LastModified by Organization Details LastModified Time 10/30/2021 10/30/2021 Mrs. Almeida is a 71-year-old female with past medical history of cirrhosis, fibromyalgia, liver failure, pneumonia, sickle cell. She presents with a roughly 6-month history of ongoing thoracolumbar back pain. She also reports some difficulty with standing for prolonged periods of time and generalized muscle soreness throughout her upper and low back. She does occasionally endorse clicking of her neck with extension and forward flexion. She denies any radicular symptoms to the upper or lower extremities. Alleviating factors include ice and heat. Patient denies any new onset weakness of bilateral extremities, saddle anesthesia, changes her bowel bladder habits. AP and lateral flexion-extension radiographs of the lumbar spine were ordered, performed and reviewed by myself which demonstrate maintained lumbosacral alignment without evidence of fracture dislocation. There is mild disc height loss at all 4 L5. There is gentle levoscoliosis of the lumbar spine at L3. AP lateral flexion-extension radiographs of the cervical spine were ordered, performed, reviewed by myself and demonstrate multilevel cervical spondylosis with moderate to severe disc height loss at C3-C4, C4-C5, C6 67 with bridging anterior osteophyte formation. Mrs. Almeida presents with generalized myofascial back pain in the setting of fibromyalgia. I have made conservative recommendations for physical therapy, meloxicam and plan on seeing the patient back in 3 months time for scheduled follow-up. The remainder of recommendations are per below. Recommend conservative management. Based on physical exam and imaging findings I do not feel surgical intervention is warranted at this time. Recommend physician guided versus supervised physical therapeutic exercise. Recommend anti-inflammatory medications such as naproxen or ibuprofen. The patient is aware of GI precautions. Alternating heat and ice for symptomatic relief is also recommended. I conveyed that ice provides relief by decreasing inflammation and heat increases blood supply to the injured area to stimulate healing. The patient is instructed to place a protective barrier such as a towel over the skin to prevent cold or thermal injury and alternating on for 20 minutes and off for 20 minutes. Recommend low impact exercise such as walking, Pilates, yoga or aqua therapy in an effort to increase endurance, strengthen musculature and stabilize the spine. The patient conveyed verbal understanding. [id number] Not available 10/30/2021 12:02:11 Plan of Treatment Reminders Order Date Submit Date Provider Last Modified By Organization Details Last Modified Time Details Appointments None recorded. Lab None recorded. Referral physical therapist referral 2021 efrancois 3 [facility] [place], [facility] [address], [place], [address], 13:19:53 Procedures None recorded. Surgeries None recorded. Imaging XR, thoracolumb ar spine, 2 or 3 view 2021 efrancois 3 [facility], [address], [place], [address], 13:19:53 Medication Orders meloxicam 7.5 mg tablet 2021 efrancois 3 [facility] #[id number], [address], [address], 13:19:53 Patient TargetsNo targets recorded. Patient InstructionsNo instructions recorded. Reason for Referral Physical Therapist Referral for Neck pain Referring Physician: Jag Milner, Orthopedic Surgery, Encounter Date: 10/30/2021 Results Created Date Observation Date Name Description Value Unit Range Abnormal Flag LastModifiedBy Organization Detail LastModifiedTime 10/30/19 22 XR, cervi dawson spine , 4 or 5 view [facility] eUID=[id number]. 0 INTERFACE [facility] [address] [place] [address] [address], [place], [address], 10/30/2021 10:25:01 10/30/19 22 XR, thora colum bar spine , 2 or 3 view [facility] eUID=[id number]. 2 INTERFACE [facility] [address] [place] [address] [address], [place], [address], 10/30/2021 10:25:11 Result Notes Documentation Provider Name and Address Organization Details Recorded Time Xr, Cervical Spine, 4 Or 5 View : StudyInstanceUID=[id number] Not Available [facility] 10/30/2021 10:25:01 Xr, Thoracolumbar Spine, 2 Or 3 View : StudyInstanceUID=[id number] Not Available [facility] 10/30/2021 10:25:11 Procedures Surgical History None recorded. Imaging Results Imaging Date Name Status LastModified by Organization Details LastModified Time 10/30/2021 XR, cervical spine, 4 or 5 view completed INTERFACE [facility] [address] [place] [address] [address], [place], [address], 10/30/2021 10:25:01 10/30/2021 XR, thoracolumbar spine, 2 or 3 view completed INTERFACE [facility] [address] [place] [address] [address], [place], [address], 10/30/2021 10:25:11 Procedure Notes None recorded. Medical Equipment None Reported. Allergies No known drug allergies Medications Name Sig Start Date Stop Date Status Note LastModified by Organization Details LastModified Time meloxicam 7.5 mg tablet Take 1 tablet every day by oral route for 30 days. 022 active Not Available Not Available Not Avai lable Vitals None Recorded Social History None recorded. Functional Status None recorded. Mental Status None recorded. Family History Nothing Reported. Medical History No medical history recorded. Gynecological HistoryNo gynecological history recorded. Obstetrics History GPAL:G 0 P 0 0 0 0 Past Encounters Encounter ID Performer Location Encounter Start Date Encounter Closed Date Diagnosis/Indication Diagnosis SNOMED-CT Code [id number] Jag Milner MD [facility] [address],[place] [address] 10/30/2021 09:09:53 10/30/2021 10:40:06 Neck pain 65606156 Pain [id number] Health Concerns Section Related Observation LastModified by Organization Detai ls LastModified Time None Recorded Concern Status LastModified by Organization Details LastModified Time None Recorded Advance Directives Directive None Recorded Payers Encounter Date Sequence Insurance Name Policy Number Policy [employer] Covered Member ID [employer] Member ID Guarantor Name 10/30/2021 1 [employer] (MEDICARE REPLACEMENT/ ADVANTAGE - PPO) Catarina Almeida [id number] Catarina Almeida 10/30/2021 2 [place] NO GROUP Catarina Almeida [id number] Catarina Almeida Notes Date Note Type Note Provider Name and Address Organization Details Recorded Time 10/30/2021 text/html HPI Notes: Spine Reported by patient. Complaint/Problem today: Pain in neck and back Date of injury/accident/on set of problem: Date 10/05/2021 Symptoms (Select any that apply): Back Pain; Neck Pain The pain has been present for: 28691.0 days; 30.0 years Indicate pain level: Pain level today: 4/10; Level of pain on worst day: 10/10 Is the pain: Constant Is the pain: Sharp; Dull; Stabbing; Aching; Stiffness Does the pain go down the arms or legs? No Is the pain worse when: sitting; standing; walking; bending; lifting; twisting; lying down; in the morning; at night Is the pain better when: in the morning Does the pain wake you up at night? No Signs and Symptoms experience difficulty standing for long periods of time; experience difficulty walking for a long time; experience difficulty with bowel or bladder; none Medications: No Have you had physical therapy? No Have you had primary care coordinator? Yes Have you had Home Exercises? No Have you had injections for spinal pain? No Have you had spine surgery? no Tests you have had: x ray Injury: Did you have an injury to cause pain? No; Work Related? Have you had Neck Pain/Arm Numbness/Arm Weakness BEFORE this episode? No Have you had Back Pain/Leg Numbness/Leg Weakness BEFORE this episode? No Occupational History (select all that apply): Retired Jag Milner MD [address], [place], [address], formerly [facility] 10/30/2021 15:41:45 OBGyn Episode No OBEpisode recorded.
--- OUTSIDE RECORDS SUMMARY | 2024-03-17 16:19 | XMS_ITS | Clinical Summary ---
Author Organization [facility] Address [place], [place] [address] Care Team Providers Care Social Services Analyst Name Role Phone [facility] Primary Care Provider [phone] Allergies No known active allergies Medications Medication Sig Dispensed Refills Start Date End Date Status cetirizine (ZYRTEC) 10 mg tablet Take 10 mg by mouth once daily if needed for Other (Specify) (itching). 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 3 mL 5 12/29/2022 Active Insulin [place], Disposable, (Microdot Insulin Pen Needle) 32 gauge x Indications:T ype 2 diabetes mellitus without complication, with long-term current use of insulin (HC) As directed. Remove the 2 covers on the insulin pen needle before administering insulin dose. 300 Each 11 12/29/2022 Active carvediloL (COREG) 12.5 mg tabletIndications: HTN (hypertension) Take 1 Tablet (12.5 mg) by mouth two times daily with meals. 180 Tablet 3 02/17/2023 Active alendronate (FOSAMAX) 35 mg tablet Take 35 mg by mouth once a week in the morning. 02/23/2023 Active acyclovir (ZOVIRAX) 800 mg tablet acyclovir 800 mg tablet Active atorvastatin (LIPITOR) 10 mg tablet Take 10 mg by mouth at bedtime. Active ergocalciferol (VITAMIN D2; DRISDOL) 50,000 unit capsule TAKE 1 CAPSULE BY MOUTH EVERY WEEK FOR 84 DAYS NOT COVERED 12/18/2022 Active levothyroxine (SYNTHROID) 88 mcg tabletIndications: Hypothyroidism, unspecified type Take 1 Tablet (88 mcg) by mouth once daily. 03/25/2023 Active mycophenolate (CellCept) 250 mg capsule Take 2 Capsules (500 mg) by mouth every 12 hours. 0 03/25/2023 Active amLODIPine (NORVASC) 5 mg tabletIndications: HTN (hypertension) TAKE 1 TABLET BY MOUTH EVERY DAY 90 Tablet 3 03/30/2023 Active traZODone (DESYREL) 50 mg tabletIndications: Insomnia, idiopathic Take 1 Tablet (50 mg) by mouth at bedtime. 90 Tablet 3 04/06/2023 Active blood-glucose meterIndications:T ype 2 diabetes mellitus without complication, with long-term current use of insulin (HC) Accu-Chek 1 Each 04/08/2023 Active lancetsIndications :Type 2 diabetes mellitus without complication, with long-term current use of insulin (HC) Test 3 times per day. 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 30 mL 3 12/28/2023 Active Active Problems Problem Noted Date Diagnosed Date Diabetes mellitus 03/25/2023 Hyperlipidemia 03/25/2023 Hypertension 03/25/2023 Chronic GERD 12/25/2022 Insomnia, idiopathic 12/25/2022 Immunosuppression due to drug therapy 09/18/2020 History of renal transplant 11/11/2017 Depression 01/02/2017 C. difficile colitis 08/01/2015 SBP (spontaneous bacterial peritonitis) 06/24/20 Calculus of gallbladder and bile duct with acute cholecystitis, with obstruction 04/18/2015 Cirrhosis of liver with ascites 04/18/2015 Chronic hepatitis C with cirrhosis 04/18/2015 Hypothyroidism 04/18/2015 Hypokalemia 04/18/2015 Anemia of chronic disease 04/18/2015 Encounters Date Type Department Care Team Description 12/29/2023 Telephone [facility] [address] [place] [address] Jed Thayer MD 12/29/23 (f/u to questions regarding pcp ) from Last 3 Months Immunizations Name Administration Dates Next Due Influenza, IIV3 (Age >=3 years) 08/04/2006 Tdap 12/26/2015 Zoster (Zostavax-ZVL, live) 12/26/2015 Family History Medical History Relation Name Comments COPD Mother mother of emphysema, smoked heavily Psychiatric illness Mother paranoid schizophrenia Thyroid Disease Sister Relation Name Status Comments Mother of emphyse ma Sister Social History Tobacco Use Types Packs/Day Years Used Date Smoking Tobacco: Never Tobacco Cessation:Counseling Given: Yes Alcohol Use Standard Drinks/Week Comments No 0 (1 standard drink = 0.6 oz pur e alcohol) Social Connections Answer Date Recorded Frequency of Communication with Friends and Fami ly Not on file 12/29/2022 Sex and Gender Information Value Date Recorded Sex Assigned at Not on file Gender Identity Not on file Sexual Orientation Not on file Obstetrics History Last Filed Vital Signs Vital Sign Reading Time Taken Comments Blood Pressure 96/52 03/25/2023 12:20 PM CDT Pulse 100 03/25/2023 12:20 PM CDT Temperature 36.9 ??C (98.5 ??F) 10/19/2016 12:[address] Respiratory Rate 16 10/19/2016 12:26 PM [facility] Oxygen Saturation 98% 10/19/2016 12:26 PM [facility] Inhaled Oxygen Concentration - - Weight 53.5 kg (118 lb) 03/25/2023 12:20 PM CDT Height 161.3 cm (5' 3.5) 12/29/2022 7:57 AM CDT Body Mass Index 20.57 12/29/2022 7:57 AM CDT Plan of Treatment Health Maintenance Due Date Last Done Comments Pneumococcal series for age 65+ (1 of 2 - PCV) 1958 Depression screening for age 12+ 1964 Hepatitis C screening for age 18-79 1970 Colonoscopy through age 75 1997 Lipids for age 45-75 1997 Mammogram for age 45-75 1997 Zoster (shingles) series for age 50+ (1 of 2) 02/20/2016 12/26/2015 DEXA/DXA scan for age 65+ 2017 Medicare Wellness for age 65+ 2017 COVID-19 vaccine series (3 - Pfizer risk series) 02/01/2021 01/04/2021, 11/20/2020 BMI (ht and wt on same day) for age 18+ 12/30/2023 0 12/29/2022 Influenza for age 65+ 06/05/2024 08/04/2006 Tetanus booster 12/25/2025 12/26/2015 Tdap Completed 12/26/2015 Additional Health Concerns Infection Onset Date Last Indicated CLOSTRIDIUM DIFFICILE Comment:+ C diff test 07/20/15 (at OSH). Enteric Precautions not required on subsequent admissions provided: 1) >3 weeks since positive C diff test; 2) diarrhea resolved; and 3) patient has completed CDI antibiotics. C diff testing not required on subsequent adm 08/01/2015 08/01/2015 Advance Directives * Full Code (Latest Code Status on File) Date Activated Date Inactivated Comments 08/01/2015 2:38 PM 08/03/2015 6:01 PM * Full Code Date Activated Date Inactivated Comments 06/24/2015 4:45 AM 06/26/2015 7:36 PM * Full Code Date Activated Date Inactivated Comments 04/18/2015 8:02 PM 04/23/2015 7:48 PM Question Answer Comments Code Status Discussion: Discussed Care Teams Social Services Analyst Relationship Specialty Start Date End Date [facility] [address] [place] [id number] PCP - General 12/29/23
== END 2024-03-17 16:14 | disposition home or self-care (01) ==
PROVIDERS: PCP Emergency Medicine; Visit Provider Emergency Medicine
DX: R30.0 Dysuria (principal); Z94.89 Other transplanted organ and tissue status; E11.9 Type 2 diabetes mellitus without complications
CPT/HCPCS: 80053; 87086

== ENCOUNTER 2024-05-10 12:49 | Outpatient (CLI) | payer MEDICARE, SELFPAY | END 2024-05-10 12:50 | disposition home or self-care (01) | PROVIDERS: PCP Emergency Medicine; Visit Provider Emergency Medicine | DX: N15.1 Renal and perinephric abscess (principal); N18.9 Chronic kidney disease, unspecified; E03.9 Hypothyroidism, unspecified; D63.8 Anemia in other chronic diseases classified elsewhere; R94.31 Abnormal electrocardiogram [ECG] [EKG]; Z94.89 Other transplanted organ and tissue status | CPT/HCPCS: 80048; 80076 ==

== ENCOUNTER 2024-06-24 21:43 | Outpatient (REF) | payer MEDICARE, SELFPAY ==
[2024-06-24 22:44] LABS: CDIFFEPI 027 PRESUMPTIVE NEGATIVE (Negative)
[2024-06-24 23:18] LABS: C.Difficile POSITIVE (Negative)
== END 2024-06-24 21:44 | disposition home or self-care (01) ==
LOC: NPINS 21:43
PROVIDERS: PCP Emergency Medicine
DX: R19.7 Diarrhea, unspecified (principal)
CPT/HCPCS: 87493

== ENCOUNTER 2024-06-27 22:23 | Outpatient (REF) | payer MEDICARE, SELFPAY ==
--- OUTSIDE RECORDS SUMMARY | 2024-06-27 22:31 | XMS_ITS | Clinical Summary ---
Author Organization [facility] Address [address] [place] [id number] Care Team Providers [employer] Name Role Phone Lissa White PA-C Unavailable Eriberto Romano MD Unavailable [phone] William Spain MD Unavailable [phone] Ashli Howell MD Primary Care Provider + [phone] Aroldo Wells MD Unavailable Georgette Velez MD Unavailable [phone] Allergies No known active allergies Medications Medication Sig Dispensed Refills Start Date End Date Status ALENDRONATE SODIUM 70 MG OR TABSIndications:O steoporosis 1 TABLET WEEKLY ON AN EMPTY STOMACH 4 4 9 Active Additional Information Patient taking differently: 70 mgOralEVERY 7 DAYS, Reported on 06/16/2024 insulin aspart (NOVOLOG PEN) 100 UNIT/ML pen Inject 8 Units subcutaneously 3 times daily (with meals) plus sliding scale 3 Active Semaglutide, 2 MG/DOSE, (OZEMPIC, 2 MG/DOSE,) 8 MG/3ML pen Inject 2 mg Subcutaneous every 7 days 3 Active amLODIPine (NORVASC) 5 MG tablet Take 5 mg by mouth every evening 3 Active acyclovir (ZOVIRAX) 400 MG tabletIndications :Kidney replaced by transplant ONE TABLET 3 TIMES DAILY x 5 days 30 tablet 5 3 Active Additional Information Patient taking differently: 400 mg Oral 3 TIMES DAILY PRN, ONE TABLET 3 TIMES DAILY x 5 days, Reported on 06/16/2024 predniSONE (DELTASONE) 5 MG tabletIndications :Kidney replaced by transplant,Liver replaced by transplant Take 1 tablet (5 mg) by mouth daily 30 tablet 11 3 Active tacrolimus (GENERIC EQUIVALENT) 1 MG capsuleIndication s:Liver replaced by transplant Take 2 capsules (2 mg) by mouth every morning AND 1 capsule (1 mg) every evening. 270 capsule 3 4 Active levothyroxine (SYNTHROID/LEVOTH ROID) 75 MCG tablet Take 75 mcg by mouth daily Active fluticasone (FLONASE) 50 MCG/ACT nasal spray Zenda 1 spray into both nostrils daily as needed for rhinitis or allergies Active carvedilol (COREG) 3.125 MG tabletIndications :HTN, kidney transplant related Take 1 tablet (3.125 mg) by mouth 2 times daily (with meals) One to two times daily 60 tablet 3 4 Active insulin glargine (LANTUS PEN) 100 UNIT/ML penIndications:Ty pe 2 diabetes mellitus without complication, with long-term current use of insulin Inject 10 Units subcutaneously every morning 4 Active Lidocaine (LIDOCARE) 4 % PatchIndications: Pain Place 1-3 patches onto the skin every 24 hours To prevent lidocaine toxicity, patient should be patch free for 12 hrs daily. 14 patch 4 Active oxyCODONE (ROXICODONE) 5 MG tabletIndications :Pain Take 1 tablet (5 mg) by mouth every 4 hours as needed for moderate pain 10 tablet 4 Active zolpidem (AMBIEN) 5 MG tablet Take 5 mg by mouth at bedtime 4 Active bisacodyl (DULCOLAX) 5 MG EC tabletIndications :Diverticulitis of colon Refer to Getting Ready for a Colonoscopy instruction handout 4 tablet 4 Active mycophenolate (GENERIC EQUIVALENT) 250 MG capsuleIndication s:Liver transplanted Take 2 capsules (500 mg) by mouth 2 times daily. 120 capsule 11 4 Active mycophenolate (GENERIC EQUIVALENT) 250 MG capsuleIndication s:Liver transplanted Take 2 capsules (500 mg) by mouth 2 times daily 120 capsule 11 3 06/23/20 24 Discontinu ed(Reorder (No AVS)) Active Problems Problem Noted Date Diagnosed Date Shortness of breath 05/02/2024 Hypomagnesemia 05/02/2024 Kidney replaced by transplant 01/24/2024 Aftercare following organ transplant 01/24/2024 CKD (chronic kidney disease) stage 2, GFR 60-89 ml/min 01/24/2024 Immunosuppressed status (H24) 01/24/2024 Liver replaced by transplant 01/24/2024 HTN, kidney transplant related 01/24/2024 Sigmoid diverticulitis 01/24/2024 Recurrent UTI (urinary tract infection) 01/24/20 Diabetes mellitus, type 2 01/24/2024 CARDIOVASCULAR SCREENING; LDL GOAL LESS THAN 160 08/04/2010 Genital herpes Overview: Problem list name updated by automated process. Provider to review LUMB/LUMBOSAC DISC DISEASE Overview: L and C spine HEPATITIS C Hypothyroidism Overview: Problem list name updated by automated process. Provider to review Encounters Date Type Department Care Team Description 06/24/2024 External Order Results [facility] [address] [place] [address] Outside, Provider 06/23/2024 Telephone [facility] [address] [place] [phone] Daniela Majano, body team member Refill 06/22/2024 Telephone [facility] [address] [place] [phone] Scarlet Cruz, RUIZ Haven't recieved call back after recent phone call 06/21/2024 MyC Medical Advice [facility] [address] [place] [phone] Briseida Parson RN 06/20/2024 Telephone [facility] Hepatology [facility] [address] [address] Racheal Fu MD Call Back 06/16/2024 2:31 PM CDT Anesthesia Event [facility] Endoscopy [address] [phone] Nicko Andrea MD Miller, Rebecca, 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 MAKER 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 06/16/2024 2:15 PM CDT - 06/16/2024 3:15 PM CDT Surgery [facility] Endoscopy [address] [phone] Aroldo Wells MD ENDOSCOPIC ULTRASOUND, ESOPHAGOSCOPY / UPPER GASTROINTESTINAL TRACT (GI) 06/16/2024 1:08 PM CDT - 06/16/2024 3:49 PM CDT Hospital Encounter [facility] Endoscopy [address] [phone] Aroldo Wells MD Discharge Disposition: Home or Self Care 05/26/2024 Orders Only [facility] [address] [place] [phone] Scarlet Cruz, RUIZ Kidney transplanted (Primary Dx); Aftercare following organ transplant 05/23/2024 MyC Medical Advice [facility] [address] [place] [phone] [facility] 05/23/2024 Telephone [facility] Transplant [address] [phone] Georgette Velez MD 05/20/2024 MyC Medical Advice [facility] [address] [place] [phone] Rox Kelly RN 05/20/2024 Telephone [facility] [address] [place] [phone] Scarlet Cruz, air tank assembler 05/18/2024 Telephone [facility] Gastroenterology Clinic [address] [phone] None Procedure (COLON cxl) 05/18/2024 MyC Medical Advice [facility] [address] [phone] Aditya Dianasabine 05/18/2024 Prep for Procedure [facility] [address] [phone] Maria Guadalupe Conner RN 05/17/2024 10:15 AM CDT Lab [facility] Lab [address] [phone] Liver transplanted (H); Aftercare following organ transplant; Encounter for long-term current use of medication; Kidney replaced by transplant; Liver replaced by transplant (H); Kidney transplanted; Immunosuppressed status (H24); Encounter for long-term (current) use of high-risk medication 05/17/2024 9:30 AM CDT Office Visit [facility] [address] [phone] Racheal Fu MD Liver transplanted (H) 05/17/2024 Travel 05/16/2024 Travel 05/13/2024 Telephone [facility] [address] [phone] Rosalind South MA 05/12/2024 Travel 05/12/2024 Prep for Procedure [facility] [address] [phone] Maria Guadalupe Conner RN Dilated bile duct (Primary Dx); Pancreatic duct dilated 05/02/2024 1:09 PM CDT - 05/06/2024 4:15 PM CDT Hospital Encounter [place] [address] [facility] [address] [place] [phone] Enrique Cuba MD Eklof, Jacques Thomas MD HTN, kidney transplant related (Primary Dx); Hypomagnesemia; Shortness of breath; Nonspecific abnormal electrocardiogram (ECG) (EKG); Long QT interval; Elevated brain natriuretic peptide (BNP) level; Renal abscess of kidney transplant; Dilated intrahepatic bile duct; Abnormality of pancreatic duct; Type 2 diabetes mellitus without complication, with long-term current use of insulin (H); Pain Discharge Disposition: Home or Self Care 05/02/2024 MyC Medical Advice [address] [phone] Candice Wilde CMA 05/02/[address] [phone] Lissa White PA-C Glucose (Glucose data for 05/04 appt ) 05/02/2024 Travel 04/26/2024 MyC Medical Advice [facility] Endocrinology Clinic [address] [place] [address] Shari Roblero LPN 04/22/2024 Telephone [facility] Hepatology [address] [phone] Racheal Fu MD 04/22/2024 MyC Medical Advice [facility] [address] [phone] [facility] 04/04/2024 PRE VISIT [facility] Rectal Surgery [facility] [address] [place] [address] Eriberto Romano MD Previsit 03/29/2024 MyC Medical Advice [facility] Gastroenterology [facility] [address] [place] [address] Clarita De La Rosa 03/29/2024 Telephone [facility] [address] [phone] Clarita De La Rosa from Last 3 Months Immunizations Name Administration [...] rare PHQ-2 Answer Date Recorded PHQ-2 Score 2 01/11/2024 Adolescent Education Answer Date Record ed Getting School Help Needed Not on file 06/29 Interpersonal Safety Answer Date Record ed Do you feel physically and e motionally safe where you currently live? Yes 06/16/2024 Within the past 12 months, h ave you been hit, slapped, kicked or otherwise physically hurt by someone? No 06/16/2024 Within the past 12 months, h ave you been humiliated or emotionally abused in other ways by your partner or ex-partner? No 06/16/2024 Sex and Gender Information Value Date Recorded Sex Assigned at Not on file Gender Identity Female 01/06/2024 12:46 PM CDT Sexual Orientation Straight 01/06/2024 12 :46 PM CDT Last Filed Vital Signs Vital Sign Reading Time Taken Comments Blood Pressure 124/53 06/16/2024 3:20 PM CDT Pulse 76 06/16/2024 3:20 PM CDT Temperature 36.9 ??C (98.4 ??F) 05/17/2024 9:22 AM CD T Respiratory Rate 70 06/16/2024 3:20 PM CDT Oxygen Saturation 98% 06/16/2024 3:20 PM CDT Inhaled Oxygen Concentration - - Weight 57.2 kg (126 lb) 06/16/2024 2:04 PM CDT Height 160 cm (5' 3) 06/16/2024 2:04 PM CDT Body Mass Index 22.32 06/16/2024 2:04 PM CDT Plan of Treatment Upcoming Encounters Date Type Department Care Team (Late st Contact Info) Description 07/18/2024 PRE VISIT [facility] [address] 4[address] [place] [address] Eriberto Romano MD [address] [place] [phone] Previsit 07/18/2024 11:00 AM CDT Office Visit [facility] Colon [facility] Rectal Surgery [facility] [place] [address] [facility] [address] 4th [place] [address] Racheal Fu MD [address] [facility] [address] [place], [place] [phone] Eriberto Romano MD [address] [facility] [address] [place], [place] [address] 08/19/2024 1:05 PM PLUG SHAPER HAND Office Visit [facility] Transplant [facility] [address] [facility] [place] [address] Georgette Velez MD [address] [facility] [address] [place], [place] [phone] Health Maintenance Due Date Last Done Comments ADVANCE CARE PLANNING 1950 ANNUAL REVIEW OF HM ORDERS [address] CT COLONOGRAPHY 1950 DIABETIC FOOT EXAM 1950 EYE EXAM 1950 FIT 1950 FLEX SIG 1950 MICROALBUMIN 1950 sDNA (Cologuard) 1950 HEPATITIS C SCREENING 1970 HEPATITIS A IMMUNIZATION (1 of 2 - Risk 2-dose series) 1971 HEPATITIS B IMMUNIZATION (1 of 3 - Risk Dialysis 4-dose series) 1972 MAMMO SCREENING 10/12/2008 10/12/2007 RSV VACCINE (1 - Risk 60-74 years 1-dose series) 2012 Pneumococcal Vaccine: 65+ Years (2 of 2 - PCV) 08/05/2017 08/05/2016 FALL RISK ASSESSMENT 2017 MEDICARE ANNUAL WELLNESS VISIT 12/21/2018 12/21/2017, 10/11/2007, 08/04/2006 ZOSTER IMMUNIZATION (2 of 2) 11/06/2021 09/11/2021, 12/26/2015 DEXA 10/12/2022 10/12/2007 COVID-19 Vaccine ( season) 2024 08/16/2021, 01/04/2021, 11/20/2020 INFLUENZA VACCINE (#1) 2024 , 06/22/2019, 01/14/2018, Additional history exists A1C 08/02/2024 05/02/2024, 09/24/2023 LIPID 01/11/2025 01/12/2024, 09/05, 10/12/2007, Additional history exists TSH W/FREE T4 REFLEX 05/02/2025 05/02/2024, 05/02/2024, 12/30/2023, Additional history exists BMP 05/17/2025 05/17/2024, 11/2023, 05/05/2024, Additional history exists DTAP/TDAP/TD IMMUNIZATION (2 - Td or Tdap) 12/25/2025 12/26/2015 COLONOSCOPY 06/16/2027 06/16/2024, 06/05, 12/18/2007 PHQ-2 (once per calendar year) Completed 01/11/2024, 05/26/2023 URINALYSIS Completed 05/17/2024, 04/05, 08/21/2023, Additional history exists COLORECTAL CANCER SCREENING Discontinued HPV IMMUNIZATION Aged Out No longer e ligible based on patient's age to complete this topic MENINGITIS IMMUNIZATION Aged Out No l onger eligible based on patient's age to complete this topic RSV MONOCLONAL ANTIBODY Aged Out No l onger eligible based on patient's age to complete this topic Procedures Procedure Name Priority Date/Time Associated Diagnosis Comments EXTERNAL LAB RESULTS Routine 06/24/2024 12:00 AM CDT Colonoscopy w/wo Wing Performed 06/16/2024 2:32 PM CDT Dilated bile duct Pancreatic duct dilated Diverticulitis Special Needs 20 min req time ENDOSCOPIC ULTRASOUND, ESOPHAGOSCOPY / UPPER GASTROINTESTINAL TRACT (GI) 06/16/2024 2:32 PM CDT Dilated bile duct Pancreatic duct dilated Diverticulitis Special Needs 20 min req time UPPER EUS Routine 06/16/2024 2:24 PM CDT COLONOSCOPY Routine 06/16/2024 2:22 PM CDT CASE REQUEST MODIFICATION Routine 05/18/2024 1:13 PM CDT ROUTINE UA WITH MICROSCOPIC REFLEX TO CULTURE Routine 05/17/2024 10:52 AM CDT Liver transplanted (H) DAVIS KELLY VIRUS QUANTITATIVE PCR, PLASMA Routine 05/17/2024 10:27 AM CDT Kidney transplanted Immunosuppressed status (H24) Aftercare following organ transplant Encounter for long-term (current) use of high-risk medication CMV QUANTITATIVE, PCR Routine 05/17/2024 10:27 AM CDT Kidney transplanted Immunosuppressed status (H24) Aftercare following organ transplant Encounter for long-term (current) use of high-risk medication INR Routine 05/17/2024 10:27 AM CDT Liver transplanted (H) T CELL SUBSET PROFILE Routine 05/17/2024 10:27 AM CDT Kidney transplanted Immunosuppressed status (H24) Aftercare following organ transplant Encounter for long-term (current) use of high-risk medication TACROLIMUS BY TANDEM MASS SPECTROMETRY STAT 05/17/2024 10:27 AM CDT Liver transplanted (H) CBC WITH PLATELETS STAT 05/17/2024 10:27 AM CDT Liver transplanted (H) BASIC METABOLIC PANEL STAT 05/17/2024 10:27 AM CDT Liver transplanted (H) HEPATIC FUNCTION PANEL Routine 10:27 AM CDT Liver transplanted (H) POTASSIUM (EXTERNAL RESULT) Routine 05/10/2024 1:25 PM CDT CREATININE (EXTERNAL RESULT) Routine 05/10/2024 1:25 PM CDT GLUCOSE (EXTERNAL RESULT) Routine 05/10/2024 1:25 PM CDT AST (EXTERNAL RESULT) Routine 05/10/2024 1:25 PM CDT ALT (EXTERNAL RESULT) Routine 05/10/2024 1:25 PM CDT LAB RESULT - HIM SCAN 05/10/2024 12:00 AM CDT EKG CARDIAC - HIM SCAN 12:00 AM CDT GLUCOSE BY METER Routine 05/06/2024 1:38 PM CDT GLUCOSE BY METER Routine 05/06/2024 12:01 PM CDT CBC WITH PLATELETS & DIFFERENTIAL Routine 05/06/2024 8:36 AM CDT CBC WITH PLATELETS AND DIFFERENTIAL Routine 05/06/2024 8:36 AM CDT HEPATIC FUNCTION PANEL Routine 8:36 AM CDT BASIC METABOLIC PANEL Routine 05/06/2024 8:36 AM CDT GLUCOSE BY METER Routine 05/06/2024 8:01 AM CDT GLUCOSE BY METER Routine 05/06/2024 1:55 AM CDT GLUCOSE BY METER Routine 05/05/2024 9:40 PM CDT GLUCOSE BY METER Routine 05/05/2024 6:00 PM CDT GLUCOSE BY METER Routine 05/05/2024 1:35 PM CDT GLUCOSE BY METER Routine 05/05/2024 9:16 AM CDT EKG 12-LEAD, TRACING ONLY Routine 05/05/2024 8:24 AM CDT COMPREHENSIVE METABOLIC PANEL Routine 05/05/2024 8:24 AM CDT GLUCOSE BY METER Routine 05/05/2024 2:27 AM CDT GLUCOSE BY METER Routine 05/04/2024 10:43 PM CDT GLUCOSE BY METER Routine 05/04/2024 6:18 PM CDT EKG 12-LEAD, TRACING ONLY Routine 05/04/2024 4:10 PM CDT GLUCOSE BY METER Routine 05/04/2024 1:10 PM CDT GLUCOSE BY METER Routine 05/04/2024 9:22 AM CDT TACROLIMUS BY TANDEM MASS SPECTROMETRY Routine 05/04/2024 7:50 AM CDT CRP INFLAMMATION Routine 05/04/2024 7:50 AM CDT LIPASE Routine 05/04/2024 7:50 AM CDT COMPREHENSIVE METABOLIC PANEL Routine 05/04/2024 7:50 AM CDT GLUCOSE BY METER Routine 05/04/2024 2:04 AM CDT GLUCOSE BY METER Routine 05/03/2024 10:01 PM CDT URINE CULTURE Routine 05/03/2024 7:39 PM CDT GLUCOSE BY METER Routine 05/03/2024 5:23 PM CDT GLUCOSE BY METER Routine 05/03/2024 12:13 PM CDT MAGNESIUM Routine 05/03/2024 11:06 AM CDT COMPREHENSIVE METABOLIC PANEL Routine 05/03/2024 11:06 AM CDT CBC WITH PLATELETS Routine 05/03/2024 11:06 AM CDT GLUCOSE BY METER Routine 05/03/2024 8:25 AM CDT EKG 12-LEAD, TRACING ONLY Routine 05/03/2024 8:23 AM CDT MR ABDOMEN MRCP W/O & W CONTRAST STAT 05/03/2024 3:17 AM CDT GLUCOSE BY METER Routine 05/02/2024 9:49 PM CDT BLOOD CULTURE STAT 05/02/2024 5:11 PM CDT LACTIC ACID WHOLE BLOOD STAT 05/02/2024 5:11 PM CDT US RENAL TRANSPLANT WITH DOPPLER STAT 05/02/2024 4:45 PM CDT EKG 12-LEAD, TRACING ONLY STAT 05/02/2024 3:26 PM CDT TROPONIN T, HIGH SENSITIVITY STAT 05/02/2024 3:23 PM CDT ROUTINE UA WITH MICROSCOPIC REFLEX TO CULTURE STAT 05/02/2024 3:[address] CHEST PE ABDOMEN PELVIS W CONTRAST STAT 05/02/2024 3:00 PM CDT INFLUENZA A/B, RSV, & SARS-COV2 PCR STAT 05/02/2024 1:37 PM CDT ISTAT GASES LACTATE VENOUS POCT STAT 05/02/2024 1:26 PM CDT CBC WITH PLATELETS & DIFFERENTIAL STAT 05/02/2024 1:23 PM CDT HEMOGLOBIN A1C Add-On 05/02/2024 1:23 PM CDT T4 FREE STAT 05/02/2024 1:23 PM CDT TSH WITH FREE T4 REFLEX STAT 05/02/2024 1:23 PM CDT NT PROBNP INPATIENT STAT 05/02/2024 1 :23 PM CDT EXTRA RED TOP TUBE STAT 05/02/2024 1: 23 PM CDT EXTRA BLUE TOP TUBE STAT 05/02/2024 1 :23 PM CDT CBC WITH PLATELETS AND DIFFERENTIAL STAT 05/02/2024 1:23 PM CDT MAGNESIUM STAT 05/02/2024 1:23 PM CDT TROPONIN T, HIGH SENSITIVITY STAT 05/02/2024 1:23 PM CDT BILIRUBIN DIRECT STAT 05/02/2024 1:23 PM CDT LIPASE STAT 05/02/2024 1:23 PM CDT EXTRA TUBE STAT 05/02/2024 1:23 PM CDT COMPREHENSIVE METABOLIC PANEL STAT 05/02/2024 1:23 PM CDT LIPID PROFILE Routine 01/12/2024 10:19 AM CDT Aftercare following organ transplant Encounter for long-term current use of medication Kidney replaced by transplant Liver replaced by transplant (H) Lipid screening HC MAMMOGRAM, SCREENING BILATERAL Routine 10/12/2007 Screening Mamm-Mailg Neopl Nec HC DEXA BONE DENSITY, >=1 SITE, AXIAL SKELETON Routine 10/12/2007 Routine Medical Exam from Last 3 Months or Most Recently Relevant to Health Maintenance Results * (ABNORMAL) External Lab Results (06/24/2024 12:00 AM CDT) Scan Lab Results (External) See Scanned Report(A) NON-INTERFACE D (ONBASE SCANS) Comment:Clostridioides diffi cile (Toxigenic C. diff) 06/24/2024 Narrative INA PFT - 06/27/2024 8:24 AM CDT Verified by Ganga Grace on 06/27/2024. Provider Outside LABORATORY INA PFToro NON-INTERFACED (ONBASE SCANS) * UPPER EUS (06/16/2024 2:24 PM CDT) Pathologist [place] [id number] [address] ??[id number] Patient Name: Catarina Almeida ?Procedure Date: 06/16/2024 2:24 PM ? Date of : 1950 ?Admit Type: Outpatient Age: 73 ? Room: [place] [address] Note Status: Finalized ?Attending MD: AROLDO WELLS MD, Instrument Name: [id number] Linear Procedure: ?Upper EUS Indications: ?Common bile duct dilation (acquired) seen on MRCP, ?Dilated pancreatic duct on MRCP, s/p Liver and ?Kidney Transplant at [facility] in ?2017 due to hepatitis C with a [id number] biliary ?reconstruction. Providers: ?AROLDO WELLS MD, Gamaliel Roblero RN Referring MD: ? Requesting Provider: ?RACHEAL FU MD Medicines: ?Monitored Anesthesia Care Complications: ?No immediate complications. Estimated blood loss: ?Minimal. Procedure: ?Pre-Anesthesia Assessment: ?- Prior to the procedure, a History and Physical ?was performed, and patient medications and ?allergies were reviewed. The patient is competent. ?The risks and benefits of the procedure and the ?sedation options and risks were discussed with the ?patient. All questions were answered and informed ?consent was obtained. Patient identification and ?proposed procedure were verified by the physician, ?the nurse, the anesthesiologist and the ticket worker ?in the procedure room. Mental Status Examination: ?alert and oriented. Airway Examination: normal ?oropharyngeal airway and neck mobility. Respiratory ?Examination: clear to auscultation. CV Examination: ?normal. Prophylactic Antibiotics: The patient does ?not require prophylactic antibiotics. Prior ?Anticoagulants: The patient has taken no ?anticoagulant or antiplatelet agents. ASA Grade ?Assessment: III - A patient with severe systemic ?disease. After reviewing the risks and benefits, ?the patient was deemed in satisfactory condition to ?undergo the procedure. The anesthesia plan was to ?use monitored anesthesia care (MAC). Immediately ?prior to administration of medications, the patient ?was re-assessed for adequacy to receive sedatives. ?The heart rate, respiratory rate, oxygen ?saturations, blood pressure, adequacy of pulmonary ?ventilation, and response to care were monitored ?throughout the procedure. The physical status of ?the patient was re-assessed after the procedure. ?After obtaining informed consent, the endoscope was ?passed under direct vision. Throughout the ?procedure, the patient's blood pressure, pulse, and ?oxygen saturations were monitored continuously. The ?Endosonoscope was introduced through the mouth, and ?advanced to the second part of duodenum. The upper ?EUS was accomplished without difficulty. The ?patient tolerated the procedure well. ? Findings: ? ENDOSONOGRAPHIC FINDING: : ? Endoscopic exam with the side viewing echoendoscope was normal. The ? major papilla was generous but otherwise normal endoscopically and ? sonographically. ? The bile duct was dilated and measuring 13 mm in maximal diameter. The ? gallbladder was absent but there was a dilated cystic duct remnant ? measuring 34 mm x 29 mm in diameter without any filling defect. There ? was a 11 mm x 9 mm rounded hypodense struture in the common bile duct ? consistent with either a soft stone/sludge or mucocele. ? The pancreatic parenchyma was normal. No masses, cysts or stones were ? visualized in the pancreatic parenchyma. The main pancreatic duct was ? followed from the major papilla to the body, excluding pancreas divisum. ? The pancreatic duct measured 4.5 mm in the head, 2 mm in the body and ? 1.5 mm in the tail of the pancreas. ? No lymph nodes were seen in the upper abdomen and mediastinum. ? No masses were seen in the visualized portions of the liver. ? The left adrenal appeared normal. ? Impression: ? - Dilated bile duct and pancreatic duct without an ?obstructing mass lesion distally or at the major ?papilla ?- A 10 mm hypodense struture in the common bile ?duct consistent with either a soft stone/sludge or ?mucocele. Did not appear to be the biliary ?anastomosis but could be related to that as well. ?- Dilated cystic duct remnant without a filling ?defect ?- Otherwise normal exam Recommendation: ? - Proceed with a colonoscopy today. ?- Will schedule for ERCP to remove bile duct stone ?versus mucocele ? Procedure Code(s): ? --- Professional --- ? 77588, Esophagogastroduoden oscopy, flexible, transoral; with endoscopic ? ultrasound examination limited to the esophagus, stomach or duodenum, ? and adjacent structures CPT copyright 2021 [employer]. All rights reserved. The codes documented in this report are preliminary and upon medical coder review may be revised to meet current compliance requirements. Aroldo Wells MD AROLDO WELLS MD 06/16/2024 3:21:12 PM Number of Addenda: 0 Note Initiated On: 06/16/2024 2:24 PM Total Procedure Duration: 0 hours 7 minutes 35 seconds Estimated Blood Loss: ? Estimated blood loss was minimal. Scope In: 2:38:58 PM Scope Out: 2:46:33 PM RADIOLOGY RESULTS 06/16/2024 2:24 PM CDT Aroldo Wells MD PROCEDURES RADIOLOGY RESULTS * COLONOSCOPY (06/16/2024 2:22 PM CDT) COLONOSCOPY [place] [address] [address] ??ARIEL Ramires ??[id number] ___ Patient Name: Catarina Almeida ?Procedure Date: 06/16/2024 2:22 PM ? Date of : 1950 ?Admit Type: Outpatient Age: 73 ? Room: [place] [address] Note Status: Finalized ?Attending MD: AROLDO WELLS MD, Instrument Name: [id number] Peds Colon ___ Procedure: ?Colonoscopy Indications: ?Follow-up of diverticulitis Providers: ?AROLDO WELLS MD, Gamaliel Roblero RN Referring : ? Requesting Provider: ?RACHEAL FU MD Medicines: ?Monitored Anesthesia Care Complications: ?No immediate complications. Estimated blood loss: ?None. ___ Procedure: ?Pre-Anesthesia Assessment: ?- Prior to the procedure, a History and Physical ?was performed, and patient medications and ?allergies were reviewed. The patient is competent. ?The risks and benefits of the procedure and the ?sedation options and risks were discussed with the ?patient. All questions were answered and informed ?consent was obtained. Patient identification and ?proposed procedure were verified by the physician, ?the nurse, the anesthesiologist and the ticket worker ?in the procedure room. Mental Status Examination: ?alert and oriented. Airway Examination: normal ?oropharyngeal airway and neck mobility. Respiratory ?Examination: clear to auscultation. CV Examination: ?normal. Prophylactic Antibiotics: The patient does ?not require prophylactic antibiotics. Prior ?Anticoagulants: The patient has taken no ?anticoagulant or antiplatelet agents. ASA Grade ?Assessment: III - A patient with severe systemic ?disease. After reviewing the risks and benefits, ?the patient was deemed in satisfactory condition to ?undergo the procedure. The anesthesia plan was to ?use monitored anesthesia care (MAC). Immediately ?prior to administration of medications, the patient ?was re-assessed for adequacy to receive sedatives. ?The heart rate, respiratory rate, oxygen ?saturations, blood pressure, adequacy of pulmonary ?ventilation, and response to care were monitored ?throughout the procedure. The physical status of ?the patient was re-assessed after the procedure. ?After obtaining informed consent, the colonoscope ?was passed under direct vision. Throughout the ?procedure, the patient's blood pressure, pulse, and ?oxygen saturations were monitored continuously. The ?peds colonoscope 516 was introduced through the ?anus and advanced to the cecum, identified by ?appendiceal orifice and ileocecal valve. The ?colonoscopy was performed without difficulty. The ?patient tolerated the procedure well. The quality ?of the bowel preparation was evaluated using the ?BBPS (Pana Bowel Preparation Scale) with scores ?of: Right Colon = 3, Transverse Colon = 3 and Left ?Colon = 3 (entire mucosa seen well with no residual ?staining, small fragments of stool or opaque ?liquid). The total BBPS score equals 9. ? Findings: ? The perianal and digital rectal examinations were normal. Pertinent ? negatives include no palpable rectal lesions. ? Multiple small-mouthed diverticula were found in the sigmoid colon. ? A few small and large-mouthed diverticula were found in the hepatic ? flexure. ? The exam was otherwise without abnormality on direct and retroflexion ? views. ? Impression: ? - Significant diverticulosis in the sigmoid colon. ?- Few diverticulosis at the hepatic flexure. ?- The examination was otherwise normal on direct ?and retroflexion views. ?- No specimens collected. Recommendation: ? - Discharge patient to home (ambulatory). ?- Resume home medications and regular diet today ?- Repeat colonoscopy is not recommended due to ?current age for screening purposes. ? Procedure Code(s): ? --- Professional --- ? 42552, Colonoscopy, flexible; diagnostic, including collection of ? specimen(s) by brushing or washing, when performed (separate procedure) CPT copyright 2021 [employer]. All rights reserved. The codes documented in this report are preliminary and upon medical coder review may be revised to meet current compliance requirements. Aroldo Wells MD AROLDO WELLS MD 06/16/2024 3:24:26 PM Number of Addenda: 0 Note Initiated On: 06/16/2024 2:22 PM Scope Withdrawal Time: 0 hours 6 minutes 34 seconds Total Procedure Duration: 0 hours 9 minutes 41 seconds Estimated Blood Loss: ? Estimated blood loss: none. Scope In: 2:54:07 PM Scope Out: 3:03:48 PM RADIOLOGY RESULTS 06/16/2024 2:22 PM CDT Aroldo Wells MD PROCEDURES RADIOLOGY RESULTS * UA with Microscopic reflex to Culture (05/17/2024 10:52 AM CDT) Only the most recent of2 resultswithin the time period is included. Color Urine Light Yellow Colorless, Straw, Light Yellow, Yellow 05/17/2024 10:59 AM CDT [facility] Appearance Urine Clear Clear 05/17/20 10:59 AM CDT [facility] Glucose Urine Negative Negative mg/dL 05/17/2024 10:59 AM CDT [facility] Bilirubin Urine Negative Negative 10:59 AM CDT [facility] Ketones Urine Negative Negative mg/dL 05/17/2024 10:59 AM CDT [facility] Specific Tully Urine 1.014 1.003 - 1.035 05/17/2024 10:59 AM CDT [facility] Blood Urine Negative Negative 05/17/2024 10:59 AM CDT [facility] pH Urine 6.0 5.0 - 7.0 05/17/2024 10:59 AM CDT [facility] Protein Albumin Urine Negative Negative mg/dL 05/17/2024 10:59 AM CDT [facility] Urobilinogen Urine Normal Normal, 2.0 mg/dL 05/17/2024 10:59 AM CDT [facility] Nitrite Urine Negative Negative 05/17/2024 10:59 AM CDT [facility] Leukocyte Esterase Urine Negative Negative 05/17/2024 10:59 AM CDT [facility] RBC Urine <1 <=2 /HPF 05/17/2024 10:59 AM CDT [facility] WBC Urine 2 <=5 /HPF 05/17/2024 10:59 AM CDT [facility] Squamous Epithelials Urine 1 <=1 /HPF 05/17/2024 10:59 AM CDT [facility] Urine MID-STREAM URINE SPECIMEN / Unknown Non-blood Collection / Unknown 05/17/2024 10:52 AM CDT 05/17/2024 10:53 AM CDT Narrative [facility] - 05/17/2024 10:59 AM CDT Urine Culture not indicated Racheal Fu MD LAB - URIN E ORDERABLES [facility] [place] [address] 1st [place] [address] * Davis Kelly Virus Quantitative PCR, Plasma (05/17/2024 10:27 AM CDT) EBV DNA IU/mL Not Detected Not Detected IU/mL 05/17/2024 3:58 PM CDT [facility] Blood STRUCTURE OF LEFT UPPER LIMB / Unknown Venipuncture / Unknown 05/17/2024 10:27 AM CDT 05/17/2024 10:27 AM CDT Narrative [facility] - 05/17/2024 3:58 PM CDT The kendrick?? EBV assay is [...] results are reported in International Units (IU)/mL. William Spain MD LAB - MICRO GENE [facility] ORDERABLES [facility] Inf. Diseases Diag. Lab [address] [facility] [place] [address], [facility] * Tacrolimus by Tandem Mass Spectrometry (05/17/2024 10:27 AM CDT) Only the most recent of2 resultswithin the time period is included. Pathologist [facility] Tacrolimus by Tandem Mass Spectrometry 6.4 5.0 - 15.0 ug/L 05/17/2024 2:26 PM CDT [facility] Comment: Tacrolimus Reference [...] post transplant: 5-8 Tacrolimus Last Dose Date 05/25/2023 05/17/2024 2:26 PM CDT [facility] Tacrolimus Last Dose Time 9:00 PM 05/17/2024 2:26 PM CDT [facility] Blood STRUCTURE OF LEFT UPPER LIMB / Unknown Venipuncture / Unknown 05/17/2024 10:27 AM CDT 05/17/2024 10:27 AM CDT Narrative [facility] - 05/17/2024 2:26 PM CDT This test was developed and its performance characteristics determined by the [facility], ??Special Chemistry Laboratory. It has not been cleared or approved by the FDA. The laboratory is regulated under CLIA as qualified to perform high-complexity testing. This test is used for clinical purposes. It should not be regarded as investigational or for research. Racheal Fu MD LAB - BLOO D ORDERABLES [facility] [address] [facility] [address], [address] [place] [address], [facility] * (ABNORMAL) T cell subset profile (05/17/2024 10:27 AM CDT) CD3% Total T Cells 94(H) 49 - 84 % 05/17/2024 2:51 PM CDT [facility] Absolute CD3, Total T Cells 1,936 603 - 2,990 cells/uL 05/17/2024 2:51 PM CDT [facility] CD4% Finley T Cells 35 28 - 63 % 05/17/2024 2:51 PM CDT [facility] Absolute CD4, Finley T Cells 720 441 - 2,156 cells/uL 05/17/2024 2:51 PM CDT [facility] CD8% Suppressor T Cells 61(H) 10 - 40 % 05/17/2024 2:51 PM CDT [facility] Absolute CD8, Suppressor T Cells 1,260 125 - 1,312 cells/uL 05/17/2024 2:51 PM CDT [facility] CD4:CD8 Ratio 0.57(L) 1.40 - 2.60 05/17/2024 2:51 PM CDT [facility] T Cell Comment 05/17/2024 2:51 PM CDT [facility] Blood STRUCTURE OF LEFT UPPER LIMB / Unknown Venipuncture / Unknown 05/17/2024 10:27 AM CDT 05/17/2024 10:27 AM CDT William Spain MD LAB - BLOOD GA AMARAL [facility] Organization Address City/State/ZIP Co de Phone Number [facility] FL[facility] CYTOMET[facility] Flow Cytometry [address] [facility] [facility] [address], [address] [place] [address], [facility] * INR (05/17/2024 10:27 AM CDT) Pathologist [facility] INR 0.88 0.85 - 1.15 05/17/2024 10:42 AM CDT [facility] Blood STRUCTURE OF LEFT UPPER LIMB / Unknown Venipuncture / Unknown 05/17/2024 10:27 AM CDT 05/17/2024 10:27 AM CDT Racheal Fu MD LAB - BLOO D ORDERABLES Performing Organization Address [facility] Co de Phone Number [facility] [address] [place] [address] * Hepatic function panel (05/17/2024 10:27 AM CDT) Only the most recent of2 resultswithin the time period is included. Pathologist [facility] Protein Total 6.9 6.4 - 8.3 g/dL 05/17/2024 10:56 AM CDT [facility] Albumin 4.4 3.5 - 5.2 g/dL 05/17/2024 10:56 AM CDT [facility] Bilirubin Total 0.2 <=1.2 mg/dL 05/17/2024 10:56 AM CDT [facility] Alkaline Phosphatase 55 40 - 150 U/L 05/17/2024 10:56 AM CDT [facility] AST 16 0 - 45 U/L 05/17/2024 10:56 AM CDT [facility] ALT 7 0 - 50 U/L 05/17/2024 10:56 AM CDT [facility] Bilirubin Direct <0.20 0.00 - 0.30 mg/dL 05/17/2024 10:56 AM CDT [facility] Blood STRUCTURE OF LEFT UPPER LIMB / Unknown Venipuncture / Unknown 05/17/2024 10:27 AM CDT 05/17/2024 10:27 AM CDT Racheal Fu MD LAB - BLOO D ORDERABLES [facility] - [address] [place] [address] * CMV Quantitative, PCR (Blood) (05/17/2024 10:27 AM CDT) CMV DNA IU/mL Not Detected Not Detected IU/mL 05/17/2024 5:26 PM CDT [facility] Blood STRUCTURE OF LEFT UPPER LIMB / Unknown Venipuncture / Unknown 05/17/2024 10:27 AM CDT 05/17/2024 10:27 AM CDT [facility] - 05/17/2024 5:26 PM CDT The kendrick?? CMV assay is a FDA-approved in vitro nucleic acid amplification test for the quantification of cytomegalovirus (CMV) DNA in human EDTA plasma using the Jovanny kendrick?? 6800 instrument for automated viral nucleic acid extraction and purification (silica-based capture technique), followed by PCR amplification and real-time detection. Selective amplification of target nucleic acid from the sample is achieved by the use of target virus-specific forward and reverse primers which are selected from highly conserved regions of the CMV DNA polymerase (UL54) gene. This test is intended for use as an aid in the management of CMV in transplant patients. In patients receiving anti-CMV therapy, serial DNA measurements can be used to assess viral response to treatment. Titer results are reported in International Units/mL (IU/mL). This assay has received FDA approval for the testing of human EDTA plasma only. The Infectious Diseases Diagnostic Laboratory at [facility] has validated the performance characteristics of the kendrick?? CMV assay for plasma and urine. William Spain MD LAB - MICRO GENE RAL ORDERABLES [facility] Inf. Diseases Diag. Lab [address] [facility] [facility], [address] [place] [phone], [facility] * (ABNORMAL) Basic metabolic panel (05/17/2024 10:27 AM CDT) Only the most recent of2 resultswithin the time period is included. Pathologist [facility] Sodium 141 135 - 145 mmol/L 05/17/2024 10:56 AM CDT [facility] Potassium 4.0 3.4 - 5.3 mmol/L 05/17/2024 10:56 AM CDT [facility] Chloride 108(H) 98 - 107 mmol/L 05/17/2024 10:56 AM CDT [facility] Carbon Dioxide (CO2) 23 22 - 29 mmol/L 05/17/2024 10:56 AM CDT [facility] Anion Gap 10 7 - 15 mmol/L 05/17/2024 10:56 AM CDT [facility] Urea Nitrogen 14.2 8.0 - 23.0 mg/dL 05/17/2024 10:56 AM CDT [facility] Creatinine 1.21(H) 0.51 - 0.95 mg/dL 05/17/2024 10:56 AM CDT [facility] GFR Estimate 48(L) >60 mL/min/1.7 3m2 05/17/2024 10:56 AM CDT [facility] Comment:eGFR calculated us2020 CKD-EPI equation. Calcium 9.7 8.8 - 10.4 mg/dL 05/17/2024 10:56 AM CDT [facility] Comment:Reference intervals for this test were updated on 04/19/2024 to reflect our healthy population more accurately. There may be differences in the flagging of prior results with similar values performed with this method. Those prior results can be interpreted in the context of the updated reference intervals. Glucose 101(H) 70 - 99 mg/dL 05/17/2024 10:56 AM CDT [facility] Blood STRUCTURE OF LEFT UPPER LIMB / Unknown Venipuncture / Unknown 05/17/2024 10:27 AM CDT 05/17/2024 10:27 AM CDT Racheal Fu MD LAB - BLOO D ORDERABLES [facility] - [facility]ORE LAB [facility] [address] 1st [place] [address] * (ABNORMAL) CBC with platelets (05/17/2024 10:27 AM CDT) Only the most recent of2 resultswithin the time period is included. WBC Count 9.5 4.0 - 11.0 10e3/uL 05/17/2024 10:33 AM CDT [facility] RBC Count 5.03 3.80 - 5.20 10e6/uL 05/17/2024 10:33 AM CDT [facility] Hemoglobin 13.0 11.7 - 15.7 g/dL 05/17/2024 10:33 AM CDT [facility] Hematocrit 40.8 35.0 - 47.0 % 05/17/2024 10:33 AM CDT [facility] MCV 81 78 - 100 fL 05/17/2024 10:33 AM CDT [facility] MCH 25.8(L) 26.5 - 33.0 pg 05/17/2024 10:33 AM CDT [facility] MCHC 31.9 31.5 - 36.5 g/dL 05/17/2024 10:33 AM CDT [facility] RDW 15.0 10.0 - 15.0 % 05/17/2024 10:33 AM CDT [facility] Platelet Count 229 150 - 450 10e3/uL 05/17/2024 10:33 AM CDT [facility] Blood STRUCTURE OF LEFT UPPER LIMB / Unknown Venipuncture / Unknown 05/17/2024 10:27 AM CDT 05/17/2024 10:27 AM CDT Racheal Fu MD LAB - BLOO D ORDERABLES [facility] [place] - [address] [place] [address] * (ABNORMAL) Potassium (External Result) (05/10/2024 1:25 PM CDT) Pathologist [facility] Potassium (External) 3.3(A) 3.6 - 5.1 mmol/L [facility] Blood 05/10/2024 1:25 PM CDT Narrative [facility] - 05/10/2024 1:25 PM CDT [facility]- External Lab Results Provider Outside LAB - HIM EXTERNAL R ESULT [facility] [address] [place] [address], [facility] [phone] * Glucose (External Result) (05/10/2024 1:25 PM CDT) Glucose (External) 113 60 - 115 mg/dL [facility] Blood 05/10/2024 1:25 PM CDT [facility] - 05/10/2024 1:25 PM CDT [facility]- External Lab Results Provider Outside LAB - [facility] EXTERNAL R ESULT Performing Organization Address City/[facility]/ZIP Co de Phone Number [facility] [address] [phone] * Creatinine (External Result) (05/10/2024 1:25 PM CDT) Creatinine (External) 1.2 0.5 - 1.5 mg/dL [facility] Blood 05/10/2024 1:25 PM CDT [facility] - 05/10/2024 1:25 PM CDT [facility]- External Lab Results Provider Outside LAB - [facility] EXTERNAL R ESULT Performing Organization Address City/[facility]/ZIP Co de Phone Number [address] [address] [phone] * AST (External Result) (05/10/2024 1:25 PM CDT) AST (External) 23 12 - 35 U/L [facility] Blood 05/10/2024 1:25 PM CDT [facility] - 05/10/2024 1:25 PM CDT [facility]- External Lab Results Provider Outside LAB - [facility] EXTERNAL R ESULT Performing Organization Address City/[facility]/ZIP Co de Phone Number [address] [address], [facility] [phone] * ALT (External Result) (05/10/2024 1:25 PM CDT) ALT (External) 10 4 - 35 U/L [facility] Blood 05/10/2024 1:25 PM CDT [facility] - 05/10/2024 1:25 PM CDT [facility]- External Lab Results Provider Outside LAB - HIM EXTERNAL R ESULT [facility] [address] [place] [address], [facility] [phone] * Lab Result - HIM Scan (05/10/2024 12:00 AM CDT) 05/10/2024 Provider Outside NON-BEAKER LAB TE STING * EKG Cardiac - HIM Scan (05/10/2024 12:00 AM CDT) 05/10/2024 Provider Outside ECG ORDERABLES * (ABNORMAL) Glucose by meter (05/06/2024 1:38 PM CDT) Only the most recent of19 resultswithin the time period is included. GLUCOSE BY METER POCT 131(H) 70 - 99 mg/dL 05/06/2024 1:48 PM CDT LABORATORY POC Blood, Capillary BLOOD SPECIMEN / Unknown 05/06/2024 1:38 PM CDT 05/06/2024 1:48 PM CDT Abdelrahman Esquivel PA-C LAB - BEAKER POCT LABORATORY POC [facility] Acute Care Lab [address] [place] [address], [facility] * (ABNORMAL) CBC with platelets and differential (05/06/2024 8:36 AM CDT) Only the most recent of2 resultswithin the time period is included. WBC Count 8.7 4.0 - 11.0 10e3/uL 05/06/2024 9:26 AM CDT LABORATORY RBC Count 4.59 3.80 - 5.20 10e6/uL 05/06/2024 9:26 AM CDT LABORATORY Hemoglobin 11.8 11.7 - 15.7 g/dL 05/06/2024 9:26 AM CDT LABORATORY Hematocrit 37.3 35.0 - 47.0 % 05/06/2024 9:26 AM CDT LABORATORY MCV 81 78 - 100 fL 05/06/2024 9:26 AM CDT LABORATORY MCH 25.7(L) 26.5 - 33.0 pg 05/06/2024 9:26 AM CDT LABORATORY MCHC 31.6 31.5 - 36.5 g/dL 05/06/2024 9:26 AM CDT LABORATORY RDW 14.7 10.0 - 15.0 % 05/06/2024 9:26 AM CDT LABORATORY Platelet Count 277 150 - 450 10e3/uL 05/06/2024 9:26 AM CDT LABORATORY % Neutrophils 73 % 05/06/2024 9:26 AM CDT LABORATORY % Lymphocytes 18 % 05/06/2024 9:26 AM CDT LABORATORY % Monocytes 8 % 05/06/2024 9:26 AM CDT LABORATORY % Eosinophils 1 % 05/06/2024 9:26 AM CDT LABORATORY % Basophils 1 % 05/06/2024 9:26 AM CDT LABORATORY % Immature Granulocytes 1 % 05/06/2024 9:26 AM CDT LABORATORY NRBCs per 100 WBC 0 <1 /100 024 9:26 AM CDT LABORATORY Absolute Neutrophils 6.3 1.6 - 8.3 10e3/uL 05/06/2024 9:26 AM CDT LABORATORY Absolute Lymphocytes 1.5 0.8 - 5.3 10e3/uL 05/06/2024 9:26 AM CDT LABORATORY Absolute Monocytes 0.7 0.0 - 1.3 10e3/uL 05/06/2024 9:26 AM CDT LABORATORY Absolute Eosinophils 0.1 0.0 - 0.7 10e3/uL 05/06/2024 9:26 AM CDT LABORATORY Absolute Basophils 0.0 0.0 - 0.2 10e3/uL 05/06/2024 9:26 AM CDT LABORATORY Absolute Immature Granulocytes 0.1 <=0.4 10e3/uL 05/06/2024 9:26 AM CDT LABORATORY Absolute NRBCs 0.0 10e3/uL 05/06/2024 9:26 AM CDT LABORATORY Blood STRUCTURE OF LEFT UPPER LIMB / Unknown Venipuncture / Unknown 05/06/2024 8:36 AM CDT 05/06/2024 9:22 AM CDT Tye Calle MD LAB - BLOOD ORDER JOSE D LABORATORY [facility] Acute [facility] Lab [address], [address] [place] [address], [facility] [phone] * EKG 12-lead, tracing only (05/05/2024 8:24 AM CDT) Only the most recent of4 resultswithin the time period is included. Systolic Blood Pressure mmHg RADIOLOGY RESULTS Diastolic Blood Pressure mmHg RADIOLOGY RESULTS Ventricular Rate 70 BPM RAD IOLOGY RESULTS Atrial Rate 70 BPM RADIOLOG Y RESULTS MS Interval 178 ms RADIOLOG Y RESULTS QRS Duration 100 ms RADIOLO GY RESULTS QT 466 ms RADIOLOGY RESULTS QTc 503 ms RADIOLOGY RESULTS P [place] 69 degrees RADIOLOGY RESULTS R AXIS 94 degrees RADIOLOGY RESULTS T [place] 246 degrees RADIOLOGY RESULTS Interpretation ECG Sinus rhythm Incomplete right bundle branch block ST & Marked T wave abnormality, consider inferior ischemia ST & Marked T wave abnormality, consider anterolateral ischemia Prolonged QT Abnormal ECG When compared with ECG of 04-May-2024 16:10, (unconfirmed) Incomplete right bundle branch block is now Present Confirmed by MD TIANNA, TYRONOS ([id number]) on 05/05/2024 2:40:24 PM RADIOLOGY RESULTS 05/05/2024 8:24 AM CDT 05/05/2024 2:40 PM CDT Rosalee Anglin DO ECG ORDERABLE S RADIOLOGY RESULTS * (ABNORMAL) Comprehensive metabolic panel (05/05/2024 8:24 AM CDT) Only the most recent of4 resultswithin the time period is included. Sodium 142 135 - 145 mmol/L 05/05/2024 9:25 AM [facility] Potassium 3.6 3.4 - 5.3 mmol/L 05/05/2024 9:25 AM [facility] Carbon Dioxide (CO2) 19(L) 22 - 29 mmol/L 05/05/2024 9:25 AM [facility] Anion Gap 11 7 - 15 mmol/L 05/05/2024 9:25 AM [facility] Urea Nitrogen 9.6 8.0 - 23.0 mg/dL 05/05/2024 9:25 AM [facility] Creatinine 1.32(H) 0.51 - 0.95 mg/dL 05/05/2024 9:25 AM [facility] GFR Estimate 43(L) >60 mL/min/1.7 3m2 05/05/2024 9:25 AM [facility] Comment:eGFR calculated usin 2020 CKD-EPI equation. Calcium 8.5(L) 8.8 - 10.4 mg/dL 05/05/2024 9:25 AM [facility] Comment:Reference intervals for this test were updated on 04/19/2024 to reflect our healthy population more accurately. There may be differences in the flagging of prior results with similar values performed with this method. Those prior results can be interpreted in the context of the updated reference intervals. Chloride 112(H) 98 - 107 mmol/L 05/05/2024 9:25 AM [facility] Glucose 103(H) 70 - 99 mg/dL 05/05/2024 9:25 AM [facility] Alkaline Phosphatase 40 40 - 150 U/L 05/05/2024 9:25 AM [facility] AST 16 0 - 45 U/L 05/05/2024 9:25 AM [facility] ALT 7 0 - 50 U/L 05/05/2024 9:25 AM [facility] Protein Total 5.4(L) 6.4 - 8.3 g/dL 05/05/2024 9:25 AM [facility] Albumin 3.4(L) 3.5 - 5.2 g/dL 05/05/2024 9:25 AM [facility] Bilirubin Total 0.3 <=1.2 mg/dL 05/05/2024 9:25 AM [facility] Blood STRUCTURE OF RIGHT HAND / Unknown Venipuncture / Unknown 05/05/2024 8:24 AM CDT 05/05/2024 8:41 AM CDT Brenton Diez MD LAB - BLOOD ORDERABL ES LABORATORY [facility] [address], [address] [place] [address], [facility] [phone] * Lipase (05/04/2024 7:50 AM CDT) Only the most recent of2 resultswithin the time period is included. Lipase 21 13 - 60 U/L 05/04/2024 9:10 AM CDT LABORATORY Blood STRUCTURE OF RIGHT UPPER LIMB / Unknown Venipuncture / Unknown 05/04/2024 7:50 AM CDT 05/04/2024 7:59 AM CDT Maurizio BARKLEY LAB - BLOOD ORD ANGIE Performing Organization Address City/[facility]/ZIP Co de Phone Number LABORATORY [facility] [address], [address] [address], [facility] [phone] * CRP inflammation (05/04/2024 7:50 AM CDT) CRP Inflammation <3.00 <5.00 mg/L 05/04/20 9:10 AM CDT LABORATORY Blood STRUCTURE OF RIGHT UPPER LIMB / Unknown Venipuncture / Unknown 05/04/2024 7:50 AM CDT 05/04/2024 7:59 AM CDT Maurizio BARKLEY LAB - BLOOD ORD ERACOLEEN LABORATORY [facility] [address] 1[address], [address] [place] [address], [place] [phone] * Urine Culture (05/03/2024 7:39 PM CDT) Culture No Growth 05/05/2024 4:56 AM CDT [facility] Urine MID-STREAM URINE SPECIMEN / Unknown Non-blood Collection / Unknown 05/03/2024 7:39 PM CDT 05/03/2024 8:22 PM CDT Jacques Iniguez MD LAB - MICRO GEN ERAL ORDERABLES [facility] Inf. Diseases Diag. Lab [address], [address] [place] [address], [facility] * Magnesium (05/03/2024 11:06 AM CDT) Only the most recent of2 resultswithin the time period is included. Magnesium 2.1 1.7 - 2.3 mg/dL 05/03/2024 11:47 AM CDT LABORATORY Blood STRUCTURE OF RIGHT UPPER LIMB / Unknown Venipuncture / Unknown 05/03/2024 11:06 AM CDT 05/03/2024 11:24 AM CDT Jacques Muñiz MD LAB - BLOOD OR DERABLES LABORATORY [facility] [address] 1[address], [address] [place] [address], [facility] [phone] * MR Abdomen MRCP w/o & w Contrast (05/03/2024 3:17 AM CDT) Anatomical Region Laterality Modality Abdomen/Pelvis, SUBRAD MR BODY, UMP MR BODY, RAD MR Magnetic Resonance 05/03/2024 3:17 AM CDT Impressions 05/03/2024 3:57 AM CDT IMPRESSION: 1. ??Intrahepatic and extrahepatic biliary ductal dilatation. Redemonstrated diffuse pancreatic ductal dilatation. No obstructing stone. 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 Given abnormal liver function tests, ERCP should be considered in further evaluation. 2. 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 Narrative 05/03/2024 3:57 AM CDT EXAM: MR ABDOMEN MRCP W/O and W CONTRAST LOCATION: [facility] DATE: 05/03/2024 INDICATION: history of liver and kidney transplants; presented with generalized weakness, recent fever and GI symptoms; CT abdomen pelvis with increasing bile duct dilatation and concern for pyelonephritis w ??renal abcess; LFTs normal, creatinine up slightly COMPARISON: CT from 05/02/2024. TECHNIQUE: Routine MR liver/pancreas protocol including axial and coronal MRCP sequences. 2D and 3D reconstruction performed by MR technologist including MIP reconstruction and slab cholangiograms. If performed with contrast, additional dynamic T1 post IV contrast images. CONTRAST: 10mL Gadavist FINDINGS: MRCP: The MRCP images are mildly degraded by motion artifact. Mild central intrahepatic biliary ductal dilatation. The common bile duct is ectatic, measuring up to 1.4 cm in diameter. This narrows fairly abruptly at the level of the ampulla. No obstructing stone is visualized, however. LIVER: Status post hepatic transplantation. Multiple benign T2 hyperintense cysts. No suspicious liver lesion. The central portal veins are patent. There is a T2 hyperintense focus in the liver hilum adjacent to the proximal extrahepatic common bile duct which mildly narrows the bile duct at this level as seen on sequence 3, measuring 3.3 x 2.3 cm. This could reflect a gallbladder or cystic duct remnant or a choledochocyst. No suspicious features or enhancement. PANCREAS: Mild, diffuse ductal dilatation with the pancreatic duct measuring up to 5 mm. No obstructing ductal stone. No pancreas divisum. ADDITIONAL FINDINGS: Normal size spleen. Slight hypoenhancement of the upper pole of the spleen anteriorly in region of previously described infarct. Normal adrenals. Atrophic twenty-nine palms kidneys. Right lower quadrant transplant kidney with hypoenhancement of the lower pole cortex and a multilocular fluid collection in the ventral lower pole measuring 2.2 x 1.9 cm on image 6 of series 19. Normal caliber bowel. Normal caliber abdominal aorta. Distal colonic diverticulosis. Normal bladder. No acute osseous findings. Procedure Note Amaury Montgomery MD - 05/03/2024 EXAM: MR ABDOMEN MRCP W/O and W CONTRAST LOCATION: [facility] DATE: 05/03/2024 INDICATION: history of liver and kidney transplants; presented withgeneralized weakness, recent fever and GI symptoms; CT abdomen pelvis withincreasing bile duct dilatation and concern for pyelonephritis w renalabcess; LFTs normal, creatinine up slightly COMPARISON: CT from 05/02/2024. TECHNIQUE: Routine MR liver/pancreas protocol including axial and coronalMRCP sequences. 2D and 3D reconstruction performed by MR technologistincluding MIP reconstruction and slab cholangiograms. If performed withcontrast, additional dynamic T1 post IV contrast images. CONTRAST: 10mL Gadavist FINDINGS: MRCP: The MRCP images are mildly degraded by motion artifact. Mild centralintrahepatic biliary ductal dilatation. The common bile duct is ectatic,measuring up to 1.4 cm in diameter. This narrows fairly abruptly at thelevel of the ampulla. No obstructing stone is visualized, however. LIVER: Status post hepatic transplantation. Multiple benign [id number] cysts. No suspicious liver lesion. The central portal veinsare patent. There is a T2 hyperintense focus in the liver hilum adjacentto the proximal extrahepatic common bile duct which mildly narrows the bile duct at this level as seen on sequence 3,measuring 3.3 x 2.3 cm. This could reflect a gallbladder or cystic ductremnant or a choledochocyst. No suspicious features or enhancement. PANCREAS: Mild, diffuse ductal dilatation with the pancreatic ductmeasuring up to 5 mm. No obstructing ductal stone. No pancreas divisum. ADDITIONAL FINDINGS: Normal size spleen. Slight hypoenhancement of theupper pole of the spleen anteriorly in region of previously describedinfarct. Normal adrenals. Atrophic twenty-nine palms kidneys. Right lower quadranttransplant kidney with hypoenhancement of the lower pole cortex and a multilocular fluid collection in the ventrallower pole measuring 2.2 x 1.9 cm on image 6 of series 19. Normal caliberbowel. Normal caliber abdominal aorta. Distal colonic diverticulosis.Normal bladder. No acute osseous findings. IMPRESSION: 1. Intrahepatic and extrahepatic biliary ductal dilatation.Redemonstrated diffuse pancreatic ductal dilatation. 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 Given abnormal liver functiontests, ERCP should be considered in further evaluation. 2. Findings suspicious for a 2.2 cm abscess in the ventral aspect of thepatient's right pelvic transplant kidney. Jacques Muñiz MD IMG MRI ORDERA BLES * (ABNORMAL) Lactic acid whole blood (05/02/2024 5:11 PM CDT) Lactic Acid 0.6(L) 0.7 - 2.0 mmol/L 05/02/2024 5:16 PM CDT LABORATORY Blood VENOUS LINE / Unknown Venipuncture / Unknown 05/02/2024 5:11 PM CDT 05/02/2024 5:15 PM CDT Enrique Cuba MD LAB - BLOOD ORDERABL ES SH LABORATORY [facility] [address] 1[address], [address] [place] [address], [facility] [phone] * Blood Culture Line, venous (05/02/2024 5:11 PM CDT) Culture No Growth 05/07/2024 5:16 PM CDT [facility] Blood VENOUS LINE / Unknown Venipuncture / Unknown 05/02/2024 5:11 PM CDT 05/02/2024 5:15 PM CDT Abdelrahman Esquivel PA-C LAB - MICRO GENERAL ORDERABLES [facility] Inf. Diseases Diag. Lab [address], [address] [place] [address] * US Renal Transplant with Doppler (05/02/2024 4:45 PM CDT) Anatomical Region Laterality Modality Abdomen/Pelvis Ultrasound 05/02/2024 4:45 PM CDT Impressions 05/02/2024 5:25 PM CDT IMPRESSION: 1. Normal sonographic appearance of the right renal allograft. Specifically, there are no fluid collections in the renal allograft to account for the finding on the CT earlier today. However, the findings on the CT remain suspicious for possible abscess or infarct in the renal allograft and a follow-up MRI should be considered for better characterization. 2. Patent allograft renal artery and vein without stenosis. 3. Borderline resistive indices in the renal allograft. Narrative 05/02/2024 5:25 PM CDT EXAM: US RENAL TRANSPLANT WITH DOPPLER LOCATION: [facility] DATE: 05/02/2024 INDICATION: Right lower quadrant renal allograft which demonstrates new patchy hypoenhancement of its anterior interpolar aspect with a complex 1.6 x 1.8 cm hypoattenuating collection COMPARISON: CT of the abdomen and pelvis earlier today TECHNIQUE: Ultrasound of the renal transplant with Doppler waveform spectral analysis. FINDINGS: The transplant kidney is located in the right lower quadrant The transplant kidney is normal in echogenicity. There is no cortical thinning. There is no hydronephrosis, calculus, cyst or mass. There is no perinephric fluid. Specifically, there are no fluid collections in the renal cortex to account for the finding seen on the CT earlier today. Partly decompressed urinary bladder.. TRANSPLANT DOPPLER: The main renal artery peak systolic velocity is normal (less than 200 cm/sec). This measures 154 cm/s at the anastomosis. The intra-renal transplant resistive index (RI) is borderline ranging between 0.74-0.83. The transplant renal vein is patent without stenosis. Patent right iliac artery and vein above and below the anastomosis. Procedure Note Elaina Su MD - 05/02/2024 EXAM: US RENAL TRANSPLANT WITH DOPPLER LOCATION: [facility] DATE: 05/02/2024 INDICATION: Right lower quadrant renal allograft which demonstrates newpatchy hypoenhancement of its anterior interpolar aspect with a complex1.6 x 1.8 cm hypoattenuating collection COMPARISON: CT of the abdomen and pelvis earlier today TECHNIQUE: Ultrasound of the renal transplant with Doppler waveformspectral analysis. FINDINGS: The transplant kidney is located in the right lower quadrant Thetransplant kidney is normal in echogenicity. There is no corticalthinning. There is no hydronephrosis, calculus, cyst or mass. There is noperinephric fluid. Specifically, there are no fluid collections in the renal cortex to account for the findingseen on the CT earlier today. Partly decompressed urinary bladder.. TRANSPLANT DOPPLER: The main renal artery peak systolic velocity is normal (less than 200cm/sec). This measures 154 cm/s at the anastomosis. The intra-renaltransplant resistive index (RI) is borderline ranging between 0.74-0.83.The transplant renal vein is patent without stenosis. Patent right iliac artery and vein above and below theanastomosis. IMPRESSION: 1. Normal sonographic appearance of the right renal allograft.Specifically, there are no fluid collections in the renal allograft toaccount for the finding on the CT earlier today. However, the findings onthe CT remain suspicious for possible abscess or infarct in the renal allograft and a follow-up MRI should be consideredfor better characterization. 2. Patent allograft renal artery and vein without stenosis. 3. Borderline resistive indices in the renal allograft. Abdelrahman Esquivel PA-C IM US ORDERABLES * (ABNORMAL) Troponin T, High Sensitivity (05/02/2024 3:23 PM CDT) Only the most recent of2 resultswithin the time period is included. Pathologist [facility] Troponin T, High Sensitivity 44(H) <=14 ng/L 05/02/2024 3:44 PM CDT LABORATORY Comment: Either a High Sensitivity Troponin T baseline (0 hours) value = 100 ng/L, or an increase in High Sensitivity Troponin T = 7 ng/L at 2 hours compared to 0 hours (2-0 hours), suggests myocardial injury, and urgent clinical attention is required. ?? If the 2-0 hours increase is <7 ng/L, a High Sensitivity Troponin T result above gender-specific reference ranges warrants further evaluation. Recommendations for further evaluation include correlation with clinical decision-making tool (e.g., HEART), a 3rd High Sensitivity Troponin T test 2 hours after the 2nd (a 20% change from baseline would represent concern), admission for observation, close PCC/cardiology follow-up, or urgent outpatient provocative testing. Blood VENOUS LINE / Unknown Venipuncture / Unknown 05/02/2024 3:23 PM CDT 05/02/2024 3:24 PM CDT Abdelrahman Esquivel PA-C LAB - BLOOD ORDERABL ES LABORATORY [facility] [address], [address] [place] [address], [facility] [phone] * CT Chest (PE) Abdomen Pelvis w Contrast (05/02/2024 3:00 PM CDT) Anatomical Region Laterality Modality Chest, SUBRAD CT BODY, UMP CT CHEST, RAD CT Computed Tomography Addenda Addendum by Leyda Mckenzie MD on 05/02/2024 3:46 PM CDT IMPRESSION #6: New small splenic infarct. LEYDA MCKENZIE MD Impressions 05/02/2024 3:34 PM CDT IMPRESSION: 1. ??Postsurgical changes of liver transplant. Worsening intrahepatic and extrahepatic biliary ductal dilatation. Increasing dilatation of the main pancreatic duct. Findings may be secondary to an obstructive process at the ampulla. Recommend correlation with clinical and laboratory values. Consider further evaluation with MRCP. 2. ??Right lower quadrant renal transplant demonstrates new area of patchy hyperenhancement with a complex hypoattenuating collection. Findings could represent pyelonephritis with an associated renal abscess. Recommend dedicated renal transplant ultrasound. 3. ??No evidence of acute pulmonary embolism. 4. ??Age-indeterminate superior endplate fracture of T3 with mild height loss. 5. ??Right upper lobe pulmonary nodule measuring 3 mm. See recommendations below. REFERENCE: Guidelines for Management of Incidental Pulmonary Nodules Detected on CT Images: From the Fleischner Society 2017. Guidelines apply to incidental nodules in patients who are 35 years or older. Guidelines do not apply to lung cancer screening, patients with immunosuppression, or patients with known primary cancer. SINGLE NODULE Nodule size <6 mm Low-risk patients: No follow-up needed. High-risk patients: Optional follow-up at 12 months. LEYDA MCKENZIE MD Narrative 05/02/2024 3:[address] CHEST PE ABDOMEN PELVIS W CONTRAST 05/02/2024 3:00 PM CLINICAL HISTORY: Shortness of breath, LLQ abd pain TECHNIQUE: TECHNIQUE: CT angiogram chest and routine CT abdomen pelvis with IV contrast. Arterial phase through the chest and venous phase through the abdomen and pelvis. 2D and 3D MIP reconstructions were performed by the radiologic technologist mammogram. Dose reduction techniques were used. CONTRAST: 62 mL Isovue-370 COMPARISON: Outside CT abdomen and pelvis 12/31/2023. FINDINGS: ANGIOGRAM CHEST: Pulmonary arteries are normal caliber and negative for pulmonary emboli. Thoracic aorta cannot be evaluated for dissection due to bolus timing. No aneurysmal dilatation of the thoracic aorta. LUNGS AND PLEURA: No airspace consolidation. Right upper lobe pulmonary nodule measuring 3 mm (series 5, image 80). No pleural effusion. MEDIASTINUM/AXILLAE: Atrophic thyroid. Normal heart size without pericardial effusion. No thoracic adenopathy. CORONARY ARTERY CALCIFICATIONS: Moderate. HEPATOBILIARY: Postsurgical changes of liver transplant. Increased intrahepatic and extrahepatic biliary ductal dilatation. There is now moderate intrahepatic biliary ductal dilatation, previously mild. The common bile duct measures up to 16 mm in diameter, previously 12 mm. Similar fluid attenuating hepatic cysts. PANCREAS: No peripancreatic inflammatory changes. Increased dilatation of the main pancreatic duct which now measures up to 5 mm in diameter compared to 2 mm. SPLEEN: New area of hypoenhancement of the anterior spleen concerning for a splenic infarct. ADRENAL GLANDS: No significant nodules. KIDNEYS/BLADDER: Atrophic bilateral twenty-nine palms kidneys which are symmetrically enhancing without hydronephrosis. Right lower quadrant renal allograft which demonstrates new patchy hypoenhancement of its anterior interpolar aspect with a complex 1.6 x 1.8 cm hypoattenuating collection (series 7, image 148). No hydronephrosis of the renal allograft. BOWEL: No evidence of obstruction. Colonic diverticulosis without focal inflammatory changes. PELVIC ORGANS: No pelvic masses. ADDITIONAL FINDINGS: No ascites. No adenopathy in the abdomen or pelvis. Moderate burden of atherosclerotic disease without abdominal aortic aneurysm. MUSCULOSKELETAL: Transitional lumbosacral anatomy with the inferior most lumbar type vertebral body referred to as S1 for this report. Remote superior endplate fracture of L3 with mild height loss. Age-indeterminate superior endplate fracture of T3 with mild height loss. Multilevel degenerative changes of the spine. Procedure Note Leyda Mckenzie MD - 05/02/2024 CT CHEST PE ABDOMEN PELVIS W CONTRAST 05/02/2024 3:00 PM CLINICAL HISTORY: Shortness of breath, LLQ abd pain TECHNIQUE: TECHNIQUE: CT angiogram chest and routine CT abdomen pelvis with IV contrast. Arterial phase through the chest and venous phase through the abdomen and pelvis. 2D and 3D MIP reconstructions were performed by the radiologic technologist mammogram. Dose reduction techniques were used. CONTRAST: 62 mL Isovue-370 COMPARISON: Outside CT abdomen and pelvis 12/31/2023. FINDINGS: ANGIOGRAM CHEST: Pulmonary arteries are normal caliber and negative for pulmonary emboli. Thoracic aorta cannot be evaluated for dissection due to bolus timing. No aneurysmal dilatation of the thoracic aorta. LUNGS AND PLEURA: No airspace consolidation. Right upper lobe pulmonary nodule measuring 3 mm (series 5, image 80). No pleural effusion. MEDIASTINUM/AXILLAE: Atrophic thyroid. Normal heart size without pericardial effusion. No thoracic adenopathy. CORONARY ARTERY CALCIFICATIONS: Moderate. HEPATOBILIARY: Postsurgical changes of liver transplant. Increased intrahepatic and extrahepatic biliary ductal dilatation. There is now moderate intrahepatic biliary ductal dilatation, previously mild. The common bile duct measures up to 16 mm in diameter, previously 12 mm. Similar fluid attenuating hepatic cysts. PANCREAS: No peripancreatic inflammatory changes. Increased dilatation of the main pancreatic duct which now measures up to 5 mm in diameter compared to 2 mm. SPLEEN: New area of hypoenhancement of the anterior spleen concerning for a splenic infarct. ADRENAL GLANDS: No significant nodules. KIDNEYS/BLADDER: Atrophic bilateral twenty-nine palms kidneys which are symmetrically enhancing without hydronephrosis. Right lower quadrant renal allograft which demonstrates new patchy hypoenhancement of its anterior interpolar aspect with a complex 1.6 x 1.8 cm hypoattenuating collection (series 7, image 148). No hydronephrosis of the renal allograft. BOWEL: No evidence of obstruction. Colonic diverticulosis without focal inflammatory changes. PELVIC ORGANS: No pelvic masses. ADDITIONAL FINDINGS: No ascites. No adenopathy in the abdomen or pelvis. Moderate burden of atherosclerotic disease without abdominal aortic aneurysm. MUSCULOSKELETAL: Transitional lumbosacral anatomy with the inferior most lumbar type vertebral body referred to as S1 for this report. Remote superior endplate fracture of L3 with mild height loss. Age-indeterminate superior endplate fracture of T3 with mild height loss. Multilevel degenerative changes of the spine. IMPRESSION: 1. Postsurgical changes of liver transplant. Worsening intrahepatic and extrahepatic biliary ductal dilatation. Increasing dilatation of the main pancreatic duct. Findings may be secondary to an obstructive process at the ampulla. Recommend correlation with clinical and laboratory values. Consider further evaluation with MRCP. 2. Right lower quadrant renal transplant demonstrates new area of patchy hyperenhancement with a complex hypoattenuating collection. Findings could represent pyelonephritis with an associated renal abscess. Recommend dedicated renal transplant ultrasound. 3. No evidence of acute pulmonary embolism. 4. Age-indeterminate superior endplate fracture of T3 with mild height loss. 5. Right upper lobe pulmonary nodule measuring 3 mm. See recommendations below. REFERENCE: Guidelines for Management of Incidental Pulmonary Nodules Detected on CT Images: From the Fleischner Society 2017. Guidelines apply to incidental nodules in patients who are 35 years or older. Guidelines do not apply to lung cancer screening, patients with immunosuppression, or patients with known primary cancer. SINGLE NODULE Nodule size <6 mm Low-risk patients: No follow-up needed. High-risk patients: Optional follow-up at 12 months. LEYDA MCKENZIE MD Abdelrahman Esquivel PA-C [facility] [place]LES * Symptomatic Influenza A/B, RSV, & SARS-CoV2 PCR (COVID-19) Nasopharyngeal (05/02/2024 1:37 PM CDT) [facility] Influenza A PCR Negative Negative 05/02/2024 2:27 PM CDT LABORATORY Influenza B PCR Negative Negative 05/02/2024 2:27 PM CDT LABORATORY RSV PCR Negative Negative 05/02/2024 2:27 PM CDT LABORATORY SARS CoV2 PCR Negative Negative 05/02/2024 2:27 PM CDT LABORATORY Comment:NEGATIVE: SARS-CoV-2 (COVID-19) RNA not detected, presumed negative. Swab NASOPHARYNGEAL STRUCTURE / Unknown Non-blood Collection / Unknown 05/02/2024 1:37 PM CDT 05/02/2024 1:47 PM CDT [facility] LABORATORY - 05/02/2024 2:27 PM CDT Testing was performed using the Xpert Xpress CoV2/Flu/RSV Assay on the [employer] GeneXpert Instrument. This test should be ordered for the detection of SARS-CoV-2, influenza, and RSV viruses in individuals who meet clinical and/or epidemiological criteria. Test performance is unknown in asymptomatic patients. This test is for in vitro diagnostic use under the FDA EUA for laboratories certified under CLIA to perform high or moderate complexity testing. This test has not been FDA cleared or approved. A negative result does not rule out the presence of PCR inhibitors in the specimen or target RNA in concentration below the limit of detection for the assay. If only one viral target is positive but coinfection with multiple targets is suspected, the sample should be re-tested with another FDA cleared, approved, or authorized test, if coinfection would change clinical management. This test was validated by the [facility]. These laboratories are certified under the Clinical Laboratory Improvement Amendments of 1988 (CLIA-88) as qualified to perform high complexity laboratory testing. Abdelrahman Esquivel PA-C LAB - MICRO GENERAL ORDERABLES LABORATORY [facility] [address], [address] [place] [address], [facility] [phone] * (ABNORMAL) iStat Gases (lactate) venous, POCT (05/02/2024 1:26 PM CDT) [facility] Lactic Acid POCT 2.1(H) <=2.0 mmol/L 05/02/2024 1:35 PM CDT LABORATORY POC Comment:Chart Critical resul t. Doctor notified Bicarbonate Venous POCT 18(L) 21 - 28 mmol/L 05/02/2024 1:35 PM CDT LABORATORY POC Comment:Chart Critical resul t. Doctor notified O2 Sat, Venous POCT 50(L) 70 - 75 % 05/02/2024 1:35 PM CDT LABORATORY POC Comment:Chart Critical resul t. Doctor notified pCO2 Venous POCT 20(L) 40 - 50 mm Hg 05/02/2024 1:35 PM CDT LABORATORY POC Comment:Chart Critical resul t. Doctor notified pH Venous POCT 7.56(H) 7.32 - 7.43 05/02/2024 1:35 PM CDT LABORATORY POC Comment:Chart Critical resul t. Doctor notified pO2 Venous POCT 22(L) 25 - 47 mm Hg 05/02/2024 1:35 PM CDT LABORATORY POC Comment:Chart Critical resul t. Doctor notified Base Excess/Deficit (+/-) POCT -2.0 -3.0 - 3.0 mmol/L 05/02/2024 1:35 PM CDT LABORATORY POC Comment:Chart Critical resul t. Doctor notified Blood, venous BLOOD SPECIMEN / Unknown 05/02/2024 1:26 PM CDT 05/02/2024 1:35 PM CDT Enrique Cuba MD LAB - BEAKER POCT LABORATORY POC [facility] [address] 1st floor, Room [address] [place] [address], [place] * Extra Red Top Tube (05/02/2024 1:23 PM CDT) Hold Specimen [facility] 05/02/2024 2:47 PM CDT LABORATORY Blood STRUCTURE OF LEFT UPPER LIMB / Unknown Venipuncture / Unknown 05/02/2024 1:23 PM CDT 05/02/2024 1:40 PM CDT Enriuqe Cuba MD LAB - BLOOD ORDERABL ES LABORATORY [facility] [address] 1[address] floor, Room [address] [place] [address], [place] [phone] * Extra Blue Top Tube (05/02/2024 1:23 PM CDT) Hold Specimen [facility] 05/02/2024 2:47 PM CDT LABORATORY Blood STRUCTURE OF LEFT UPPER LIMB / Unknown Venipuncture / Unknown 05/02/2024 1:23 PM CDT 05/02/2024 1:40 PM CDT Enrique Cuba MD LAB - BLOOD ORDERABL ES LABORATORY [facility] [address] 1[address] floor, Room [address] [place] [address], [place] [phone] * (ABNORMAL) TSH with free T4 reflex (05/02/2024 1:23 PM CDT) TSH 4.64(H) 0.30 - 4.20 uIU/mL 05/02/2024 2:35 PM CDT LABORATORY Blood BLOOD SPECIMEN / Unknown Venipuncture / Unknown 05/02/2024 1:23 PM CDT 05/02/2024 1:40 PM CDT Abdelrahman Esquivel PA-C LAB - BLOOD ORDERABL ES LABORATORY [facility] [address] 1[address] floor, [address] [address], [facility] [phone] * T4 free (05/02/2024 1:23 PM CDT) Free T4 1.39 0.90 - 1.70 ng/dL 05/02/2024 2:57 PM CDT LABORATORY Blood BLOOD SPECIMEN / Unknown Venipuncture / Unknown 05/02/2024 1:23 PM CDT 05/02/2024 1:40 PM CDT Abdelrahman Esquivel PA-C LAB - BLOOD ORDERABL ES LABORATORY [facility] [address] 1[address] floor, [address] [address], [facility] [phone] * (ABNORMAL) Nt probnp inpatient (BNP) (05/02/2024 1:23 PM CDT) N terminal Pro BNP Inpatient 15,821(H) 0 - 900 pg/mL 05/02/2024 2:35 PM CDT LABORATORY Comment: Reference range shown and results flagged as abnormal are suggested inpatient cut points for confirming diagnosis if CHF in an acute setting. Establishing a baseline value for each individual patient is useful for follow-up. An inpatient or emergency department NT-proPBNP <300 pg/mL effectively rules out acute CHF, with 99% negative predictive value. The outpatient non-acute reference range for ruling out CHF is: 0-125 pg/mL (age 18 to less than 75) 0-450 pg/mL (age 75 yrs and older) Blood BLOOD SPECIMEN / Unknown Venipuncture / Unknown 05/02/2024 1:23 PM CDT 05/02/2024 1:40 PM CDT Abdelrahman Esquivel PA-C LAB - BLOOD ORDERABL ES Performing Organization Address City/[facility] Co de Phone Number LABORATORY [facility] [address] 1[address] floor, Room [address] [place] [address], [facility] [phone] * (ABNORMAL) Hemoglobin A1c (05/02/2024 1:23 PM CDT) Hemoglobin A1C 6.1(H) <5.7 % 05/02/2024 9:34 PM CDT LABORATORY Comment: Normal <5.7% Prediabetes 5.7-6.4% ?? Diabetes 6.5% or higher Note: Adopted from ADA consensus guidelines. Blood BLOOD SPECIMEN / Unknown Venipuncture / Unknown 05/02/2024 1:23 PM CDT 05/02/2024 1:40 PM CDT Jacques Muñiz MD LAB - BLOOD OR DERABLES Performing Organization Address City/[facility]/ZIP Co de Phone Number LABORATORY [facility] [address] 1[address] floor, Room [address] [place] [address], [facility] [phone] * Bilirubin direct (05/02/2024 1:23 PM CDT) Bilirubin Direct <0.20 0.00 - 0.30 mg/dL 05/02/2024 2:06 PM CDT LABORATORY Blood BLOOD SPECIMEN / Unknown Venipuncture / Unknown 05/02/2024 1:23 PM CDT 05/02/2024 1:40 PM CDT Enrique Cuba MD LAB - BLOOD ORDERABL ES LABORATORY [facility] [address] 1[address] floor, [address] [place] [address], [facility] [phone] * (ABNORMAL) Lipid Profile (01/12/2024 10:19 AM CDT) Cholesterol 208(H) <200 mg/dL 01/12/2024 10:47 AM CDT [facility] - CORE LAB Triglycerides 191(H) <150 mg/dL 01/12/2024 10:47 AM CDT [facility] - CORE LAB Direct Measure HDL 40(L) >=50 mg/dL 01/12/2024 10:47 AM CDT [facility] - CORE LAB LDL Cholesterol Calculated 130(H) <=100 mg/dL 01/12/2024 10:47 AM CDT [facility] - CORE LAB Non HDL Cholesterol 168(H) <130 mg/dL 01/12/2024 10:47 AM CDT [facility] - CORE LAB Patient Fasting > 8hrs? No 01/12/2024 10:47 AM CDT [facility] - CORE LAB Blood STRUCTURE OF RIGHT UPPER LIMB / Unknown Venipuncture / Unknown 01/12/2024 10:19 AM CDT 01/12/2024 10:19 AM CDT Narrative [facility] - CORE LAB - 01/12/2024 10:47 [...] ??Greater than or equal to 220 mg/dL Racheal Fu MD LAB - BLOO D ORDERABLES [facility] - CORE LAB [facility] - [address] 1st [place] [address] * DEXA,BONE DENSITY,AXIAL SKELETON (10/12/2007) Anatomical Region Laterality Modality Bone Mineral Den sity Impressions 10/12/2007 BONE DENSITOMETRY [facility] [address] [id number] 10/12/2007 Patient: ??Catarina De Chart: [id number] : ??1950 Age: ??56 year old Sex: ??female Referring provider: ??EDGAR JACK Procedure: ??Bone density scanning was performed using DEXA technology performed on a [employer] scanner. ??Reporting is completed in the form of a T-score. ?? The T-score represents the standard deviation from peak bone mass based on a young healthy adult. Disaster Recovery Specialist performing scan: ??Gianna Lawson Reference T-Scores: ? 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 Source: [employer]. 05/14/2016 Advance Directives For more information, please contact: [phone] * Full Code (Latest Code Status on File) Date Activated Date Inactivated Comments 05/02/2024 9:08 PM 05/06/2024 6:20 PM All basic and advanced life-sustaining interventions are performed as appropriate Question Answer Comments Code status determined by: Discussion with patie nt/ legal decision maker Care Teams [employer] Relationship Specialty Start Date End Date Ashli Howell MD [facility] [address] [place] [address] PCP - General Family Medicine 05/06/24 Lissa White PA-C [address] [place] [address] Physician Geology Professor Endocrinology, Diabetes, and Metabolism 01/05/24 Eriberto Romano MD 420 [facility] 195 [place] [address] Colon & Rectal 01/18/24 William Spain MD 717 [facility] 353 [facility] [address] [place] [address] Assigned Nephrology Provider 01/26/24 Arlodo Wells MD [address] [place] [address] Gastroenterology 05/12/24 Georgette Velez MD [address] [place] [address] Nephrology 05/26/24
--- OUTSIDE RECORDS SUMMARY | 2024-06-27 22:32 | XMS_ITS | Encounter Summary ---
Author Organization [place] Address [facility]0 [place] [address] Care Team Providers Care Press Tender Star Signal Name Role Phone Lissa White PA-C Unavailable Eriberto Romano MD Unavailable [phone] William Spain MD Unavailable [phone] Ashli Howell MD Primary Care Provider + [phone] Aroldo Wells MD Unavailable Georgette Velez MD Unavailable [phone] Reason for Visit * Auth/Cert (Routine) Specialty Diagnoses / Procedures Referred By Beata pickett Referred To Contact Gastroenterology Diagnoses Dilated bile duct Pancreatic duct dilated Diverticulitis Dilated bile duct [K83.8] Pancreatic duct dilated [K86.89] Diverticulitis [K57.92] Procedures AK COLONOSCOPY W/WO BRUSH/WASH ENDOSCOPIC ULTRASOUND, ESOPHAGOSCOPY / UPPER GASTROINTESTINAL TRACT (GI) Colonoscopy [facility] Endoscopy [address] [address] Referral ID Status Reason Start Date Expiration Date Visits Re quested Visits Authorized [id number] 1 1 Encounter Details Date Type Department Care Team (Latest Contact Info) Description 06/16/2024 1:08 PM CDT - 06/16/2024 3:49 PM CDT Hospital Encounter [facility] Endoscopy [address] [address] Aroldo Wells MD [address] [place] [address] Discharge Disposition: Home or Self Care Social History Tobacco Use Types Packs/Day Years [...] Pulse 76 06/16/2024 3:20 PM CDT Temperature - - Respiratory Rate 70 06/16/2024 3:20 PM CDT Oxygen Saturation 98% 06/16/2024 3:20 PM CDT Inhaled Oxygen Concentration - - Weight 57.2 kg (126 lb) 06/16/2024 2:04 PM CDT Height 160 cm (5' 3) 06/16/2024 2:04 PM CDT Body Mass Index 22.32 06/16/2024 2:04 PM CDT documented in this encounter Medications at Time of Discharge Medication Sig Dispensed Refills Start Date End Date acyclovir (ZOVIRAX) 400 MG tabletIndications:Ki dney replaced by transplant ONE TABLET 3 TIMES DAILY x 5 days 30 tablet 5 08/21/2023 ALENDRONATE SODIUM 70 MG OR TABSIndications:Oste oporosis 1 TABLET WEEKLY ON AN EMPTY STOMACH 4 4 07/06/2009 amLODIPine (NORVASC) 5 MG tablet Take 5 mg by mouth every evening 03/30/2023 bisacodyl (DULCOLAX) 5 MG EC tabletIndications:Di verticulitis of colon Refer to Getting Ready for a Colonoscopy instruction handout 4 tablet 05/18/2024 carvedilol (COREG) 3.125 MG tabletIndications:HT N, kidney transplant related Take 1 tablet (3.125 mg) by mouth 2 times daily (with meals) One to two times daily 60 tablet 3 05/06/2024 fluticasone (FLONASE) 50 MCG/ACT nasal spray [place] 1 spray into both nostrils daily as needed for rhinitis or allergies insulin aspart (NOVOLOG PEN) 100 UNIT/ML pen Inject 8 Units subcutaneously 3 times daily (with meals) plus sliding scale 12/29/2022 insulin glargine (LANTUS PEN) 100 UNIT/ML penIndications:Type 2 diabetes mellitus without complication, with long-term current use of insulin Inject 10 Units subcutaneously every morning 05/06/2024 levothyroxine (SYNTHROID/LEVOTHROI D) 75 MCG tablet Take 75 mcg by mouth daily Lidocaine (LIDOCARE) 4 % PatchIndications:Adelina n Place 1-3 patches onto the skin every 24 hours To prevent lidocaine toxicity, patient should be patch free for 12 hrs daily. 14 patch 05/06/2024 oxyCODONE (ROXICODONE) 5 MG tabletIndications:Pa in Take 1 tablet (5 mg) by mouth every 4 hours as needed for moderate pain 10 tablet 05/06/2024 predniSONE (DELTASONE) 5 MG tabletIndications:Ki dney replaced by transplant,Liver replaced by transplant Take 1 tablet (5 mg) by mouth daily 30 tablet 11 09/10/2023 Semaglutide, 2 MG/DOSE, (OZEMPIC, 2 MG/DOSE,) 8 MG/3ML pen Inject 2 mg Subcutaneous every 7 days 12/29/2022 tacrolimus (GENERIC EQUIVALENT) 1 MG capsuleIndications:L iver replaced by transplant Take 2 capsules (2 mg) by mouth every morning AND 1 capsule (1 mg) every evening. 270 capsule 3 01/19/2024 zolpidem (AMBIEN) 5 MG tablet Take 5 mg by mouth at bedtime 05/10/2024 mycophenolate (GENERIC EQUIVALENT) 250 MG capsuleIndications:L iver transplanted Take 2 capsules (500 mg) by mouth 2 times daily 120 capsule 11 06/18/2023 06/23/2024 documented as of this encounter Plan of Treatment Upcoming Encounters Date Type Department Care Team (Late st Contact Info) Description 07/18/2024 PRE VISIT [facility] [address] [phone] Eriberto Romano MD [address] [place] [phone] Previsit 07/18/2024 11:00 AM CDT Office Visit [facility] [address] [phone] Racheal Nath MD [address] [place] [address] [address] [place], [place] [phone] Eriberto Romano MD [address] [place] [phone] 08/19/2024 1:05 PM DISTRIBUTION LINEMAN Office Visit [facility] Transplant Clinic [address] [place] [phone] Georgette Velez MD [address] [place] [phone] documented as of this encounter Procedures Procedure Name Priority Date/Time Associated Diagnosis Comments Colonoscopy w/wo [place] Performed 06/16/2024 2:32 PM CDT Dilated bile duct Pancreatic duct dilated Diverticulitis Special Needs 20 min req time ENDOSCOPIC ULTRASOUND, ESOPHAGOSCOPY / UPPER GASTROINTESTINAL TRACT (GI) 06/16/2024 2:32 PM CDT Dilated bile duct Pancreatic duct dilated Diverticulitis Special Needs 20 min req time UPPER EUS Routine 06/16/2024 2:24 PM CDT COLONOSCOPY Routine 06/16/2024 2:22 PM CDT documented in this encounter Results * UPPER EUS (06/16/2024 2:24 PM CDT) Pathologist [facility] [place] [address] [address] ??[place] ??[id number] Patient Name: Catarina Almeida ?Procedure Date: 06/16/2024 2:24 PM ? Date of : 1950 ?Admit Type: Outpatient Age: 73 ? Room: [place] [address] Note Status: Finalized ?Attending MD: AROLDO WELLS MD, Instrument Name: [id number] Linear Procedure: ?Upper EUS Indications: ?Common bile duct dilation (acquired) seen on MRCP, ?Dilated pancreatic duct on MRCP, s/p Liver and ?K[facility] Transplant at [facility] in ?2017 due to hepatitis C with a [id number] biliary ?reconstruction. Providers: ?AROLDO WELLS MD, Gamaliel Roblero RN Referring MD: ? Requesting Provider: ?RACHEAL NATH MD Medicines: ?Monitored Anesthesia Care Complications: ?No [...] physician, ?the nurse, the anesthesiologist and the security attendant ?in the procedure room. Mental Status Examination: [...] Procedure Code(s): ? --- Professional --- ? 78592, Esophagogastroduoden oscopy, flexible, transoral; with endoscopic ? ultrasound examination limited to the esophagus, stomach or duodenum, ? and adjacent structures CPT copyright 2021 [employer]. All rights reserved. The codes documented in this report are preliminary and upon medical associate review may be revised to meet current [...] * COLONOSCOPY (06/16/2024 2:22 PM CDT) COLONOSCOPY [place] [address] [address] ??[place] ??[id number] ___ Patient Name: Catarina Almeida ?Procedure Date: 06/16/2024 2:22 PM ? Date of : 1950 ?Admit Type: Outpatient Age: 73 ? Room: [place] [address] Note Status: Finalized ?Attending MD: AROLDO WELLS MD, Instrument Name: [address] [id number] Peds Colon ___ Procedure: ?Colonoscopy Indications: ?Follow-up of diverticulitis Providers: ?AROLDO WELLS MD, Gamaliel Roblero RN Referring : ? Requesting Provider: ?RACHEAL NATH MD Medicines: ?Monitored Anesthesia Care Complications: ?No [...] physician, ?the nurse, the anesthesiologist and the security attendant ?in the procedure room. Mental Status Examination: [...] bowel preparation was evaluated using the ?BBPS ([place] Bowel Preparation Scale) with scores ?of: Right [...] Procedure Code(s): ? --- Professional --- ? 91106, Colonoscopy, flexible; diagnostic, including collection of ? specimen(s) by brushing or washing, when performed (separate procedure) CPT copyright 2021 [employer]. All rights reserved. The codes documented in this report are preliminary and upon medical associate review may be revised to meet current [...] CDT Aroldo Wells MD PROCEDURES RADIOLOGY RESULTS documented in this encounter Visit Diagnoses Not on filedocumented in this encounter Administered Medications Inactive Administered Medications - up to 3 most recent administrations Medication Order MAR Action Action Date Dose Rate Site lidocaine (LMX4) cream Topical, EVERY 1 HOUR PRN, pain, with VAD insertion, Starting on Camille 06/16/24 at 1531, Apply at least 30 minutes prior to VAD insertion in divided doses as needed for size of site for insertion. MAX Dose: 2.5 g (?? of 5 g tube) Do NOT give if patient has a history of allergy to any local anesthetic or any selene product. Do NOT use both lidocaine intradermal/subcutaneous injection and the lidocaine cream on the same site., Pre-procedure lidocaine 1 % 0.1-1 mL 0.1-1 mL, Other, EVERY 1 HOUR PRN, mild pain with VAD insertion, Starting on Camille 06/16/24 at 1531, MAX dose 1 mL subcutaneous OR intradermal along the side of the vein in divided doses as needed for VAD insertion. Do NOT give if patient has a history of allergy to any local anesthetic or any selene product. Do NOT use both lidocaine intradermal/subcutaneous injection and the lidocaine cream on the same site., Pre-procedure sodium chloride (PF) 0.9% PF flush 3 mL 3 mL, Intracatheter, EVERY 8 HOURS, First dose on Camille 06/16/24 at 1600, to lock peripheral IV dormant line, Pre-procedure sodium chloride (PF) 0.9% PF flush 3 mL 3 mL, Intracatheter, EVERY 1 MIN PRN, line flush, other, to ensure patency or to lock dormant line, Starting on Camille 06/16/24 at 1531, Pre-procedure documented in this encounter Active and Recently Administered Medications Times are shown in CDT. Scheduled Medication Order 06/14/2024 06/15/2024 06/16/2024 sodium chloride (PF) 0.9% PF flush 3 mL 3 mL, Intracatheter, EVERY 8 HOURS, First dose on Camille 06/16/24 at 1600, to lock peripheral IV dormant line, Pre-procedure 1600 (Canceled Entry - Provider: Orders Generic Provider - Comment: Automatically canceled at discontinue of medication order) PRN Medication Order 06/14/2024 06/15/2024 06/16/2024 lidocaine (LMX4) cream Topical, EVERY 1 HOUR PRN, pain, with VAD insertion, Starting on Camille 06/16/24 at 1531, Apply at least 30 minutes prior to VAD insertion in divided doses as needed for size of site for insertion. MAX Dose: 2.5 g (?? of 5 g tube) Do NOT give if patient has a history of allergy to any local anesthetic or any selene product. Do NOT use both lidocaine intradermal/subcutaneous injection and the lidocaine cream on the same site., Pre-procedure lidocaine 1 % 0.1-1 mL 0.1-1 mL, Other, EVERY 1 HOUR PRN, mild pain with VAD insertion, Starting on Camille 06/16/24 at 1531, MAX dose 1 mL subcutaneous OR intradermal along the side of the vein in divided doses as needed for VAD insertion. Do NOT give if patient has a history of allergy to any local anesthetic or any selene product. Do NOT use both lidocaine intradermal/subcutaneous injection and the lidocaine cream on the same site., Pre-procedure sodium chloride (PF) 0.9% PF flush 3 mL 3 mL, Intracatheter, EVERY 1 MIN PRN, line flush, other, to ensure patency or to lock dormant line, Starting on Camille 06/16/24 at 1531, Pre-procedure documented in this encounter Additional Health Concerns Infection Onset Date Last Indicated Resolved Time MRSA Comment: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 Source: [employer]. 05/14/2016 documented as of this encounter Care Teams Press Tender Star Signal Relationship Specialty Start Date End Date Ashli Howell MD [facility] [address] [place] [address] PCP - General Family Medicine 05/06/24 Lissa White PA-C [address] [place], [place] [address] Physician Precinct Police Captain Endocrinology, Diabetes, and Metabolism 01/05/24 Eriberto Romano MD 420 [facility] 195 [place], [place] [address] Colon & Rectal 01/18/24 William Spain MD 717 [facility] 353 [facility] 1932 [place], [place] [address] Assigned Nephrology Provider 01/26/24 Aroldo Wells MD [address] [place], [place] [address] Gastroenterology 05/12/24 Georgette Velez MD [address] [place] [address] Nephrology 05/26/24 documented as of this encounter
--- OUTSIDE RECORDS SUMMARY | 2024-06-27 22:32 | XMS_ITS | Encounter Summary ---
Author Organization [place] Address [address] [facility] [place] [address] Care Team Providers Care Zig Zag Spring Machine Operator Name Role Phone Lissa White PA-C Unavailable Eriberto Romano MD Unavailable [phone] William Spain MD Unavailable [phone] Ashli Howell MD Primary Care Provider + [phone] Aroldo Kimbrough MD Unavailable Georgette Velez MD Unavailable [phone] Reason for Visit * Reason Onset Date Comments Haven't recieved call back after recent phone ca ll 06/22/2024 Encounter Details Date Type Department Care Team (Late st Contact Info) Description 06/22/2024 Telephone [facility] [address] [place] [phone] Scarlet Cruz, RUIZ Haven't recieved call back after recent phone call Social History Tobacco Use Types Packs/Day Years [...] Telephone Encounter - Gianna Varela LPN - 06/23/2024 10:32 AM CDT Informed pt that the order for the c-diff has been faxed to [facility]. * Telephone Encounter - Marnie Yates - 06/23/2024 8:43 AM CDT Patient Call: General Route to SWAGING MACHINE OPERATOR Reason for call: Patient stated she's still having some pain, and wanting to know if the team will start her on Antibiotic Call back needed? Yes Return Call Needed Same as documented in contacts section When to return call?: Same day: Route High Priority * Telephone Encounter - Khari Meyer - 06/22/2024 4:45 PM CDT Voicemail Date/Time: 06/22/2024 @ 3:43PM Reason for call: This is Catarina Almeida. My number is [phone]. Um, I spoke to, uh, nurses or someone yesterday when they called, um, concerning me thinking I might have, um, a diverticulitis flare up been in a lot of pain every day. Now. Um, I waiting for a call back. Um, I know Doctor Tank minor but they said they would contact the other physicians still haven't heard back. I'd like to know what's going on and, um, also I need another prescription for my mycophenolate. Thank you. And, um, please return my call. documented in this encounter Plan of Treatment Upcoming Encounters Date Type Department Care Team (Late st Contact Info) Description 07/18/2024 PRE VISIT [facility] Colon [facility]al Surgery Clinic [address] [phone] Eriberto Romano MD [address] [place] [address] [phone] Previsit 07/18/2024 11:00 AM CDT Office Visit [facility]al [facility] [address] [phone] Kylee Fu MD [address] [place] [address] [address] [place], [place] [address] Eriberto Romano MD [address] [place] [phone] 08/19/2024 1:05 PM ROSIN BARREL FILLER Office Visit [facility] Trans[facility] [address] [place] [phone] Georgette Velez MD [address] [place] [address] [phone] documented as of this encounter Visit Diagnoses Not on filedocumented in this encounter Additional Health Concerns Infection Onset Date Last Indicated Resolved Time MRSA Comment: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 Source: [employer]. 05/14/2016 documented as of this encounter Care Teams Zig Zag Spring Machine Operator Relationship Specialty Start Date End Date Ashli Howell MD [facility] [address] [place] [address] PCP - General Family Medicine 05/06/24 Lissa White PA-C [address] [place], [place] [phone] Physician Gasoline Tester Endocrinology, Diabetes, and Metabolism 01/05/24 Eriberto Romano MD 420 [facility] 195 [place], [place] [address] Colon & Rectal 01/18/24 William Spain MD 717 [facility] 353 [facility] [address] [place], [place] [address] Assigned Nephrology Provider 01/26/24 Aroldo Kimbrough MD [address] [place], [place] [address] Gastroenterology 05/12/24 Georgette Velez MD [address] [place], [place] [address] Nephrology 05/26/24 documented as of this encounter
--- OUTSIDE RECORDS SUMMARY | 2024-06-27 22:32 | XMS_ITS | Encounter Summary ---
Author Organization [place] Address [address] [place] [address] Care Team Providers Care Police Crime Scene Technician Name Role Phone Lissa White PA-C Unavailable Eriberto Romano MD Unavailable [phone] William Spain MD Unavailable [phone] Ashli Howell MD Primary Care Provider + [phone] Aroldo Kimbrough MD Unavailable Georgette Velez MD Unavailable [phone] Encounter Details Date Type Department Care Team (Late st Contact Info) Description 05/20/2024 MyC Medical Advice [facility] [address] [place] [address] Rox Kelly RN Social History Tobacco Use Types Packs/Day [...] st Contact Info) Description 07/18/2024 PRE VISIT [facility] [address] [phone] Eriberto Romano MD [address] [address] Previsit 07/18/2024 11:00 AM CDT Office Visit [facility] [address] [phone] Kylee Fu MD 6 [facility] 2A [place], [place] [address] Eriberto Romano MD [address] [address] 08/19/2024 1:05 PM HAZARDOUS WASTE TECHNICIAN Office Visit [facility] [address] [place] [phone] Georgette Velez MD 500 [place], [place] 9[address]195 documented as of this encounter Visit Diagnoses Not on filedocumented in this encounter Additional Health Concerns Infection Onset Date Last Indicated Resolved Time MRSA Comment: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 Source: [employer] 05/14/2016 documented as of this encounter Care Teams Police Crime Scene Technician Relationship Specialty Start Date End Date Ashli Howell MD [facility] [address] [place] [address] PCP - General Family Medicine 05/06/24 Lissa White PA-C 500 [place], [place] 5[address] Physician Underwriting Intern Endocrinology, Diabetes, and Metabolism 01/05/24 Eriberto Romano MD 420 [facility] 195 [place], [place] [address] Colon & Rectal 01/18/24 William Spain MD 717 [facility] 353 [facility] 1932 [place], [place] 5924[address] Assigned Nephrology Provider 01/26/24 Aroldo Kimbrough MD 909 [place], [place] [address] Gastroenterology 05/12/24 Georgette Velez MD 500 [place], [place] 811[address] Nephrology 05/26/24 documented as of this encounter
--- OUTSIDE RECORDS SUMMARY | 2024-06-27 22:32 | XMS_ITS | Encounter Summary ---
Author Organization [place] Address [facility] [place] [address] Care Team Providers Care Qa Manager Name Role Phone Lissa White PA-C Unavailable Eriberto Romano MD Unavailable [phone] William Spain MD Unavailable [phone] Ashli Howell MD Primary Care Provider + [phone] Aroldo Kimbrough MD Unavailable Georgette Velez MD Unavailable [phone] Reason for Visit * Reason Onset Date Comments Medication Refill 06/23/2024 Encounter Details Date Type Department Care Team (Late st Contact Info) Description 06/23/2024 Telephone [facility] [address] [place] [address] Daniela Majano RN Medication Refill Social History Tobacco Use Types [...] encounter Miscellaneous Notes * Telephone Encounter - MilanMarnie thompson Michael - 06/23/2024 8:44 AM CDT Patient Call: Medication Refill Route to SENIOR FINANCIAL CONSULTANT Instruct the patient to first contact their pharmacy. If they have called their pharmacy and require further assistance, route to SENIOR FINANCIAL CONSULTANT. Pharmacy Name: [facility]/pharmacy #[id number] Pharmacy Location: [address] Name of Medication: mycophenolate Dose: 250 MG capsule Patient stated she's completley out and is requesting script be sent today. When will the patient be out of this medication?: Less than 24 hours ([facility] SENIOR FINANCIAL CONSULTANT, then page if no answer) documented in this encounter Plan of Treatment Upcoming Encounters Date Type Department Care Team (Late st Contact Info) Description 07/18/2024 PRE VISIT [facility] [address] [phone] Eriberto Romano MD [address] [place] [address] Previsit 07/18/2024 11:00 AM CDT Office Visit [facility] [address] [phone] Kylee Fu MD [address] [place] [address] [phone] Eriberto Romano MD [address] [place] [address] 08/19/2024 1:05 PM SORTER UPHOLSTERY PARTS Office Visit [facility] [address] [place] [phone] Georgette Velez MD 500 [place] [address] documented as of this encounter Visit Diagnoses Diagnosis Liver transplanted Liver replaced by transplant documented in this encounter Additional Health Concerns Infection Onset Date Last Indicated Resolved Time MRSA Comment: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 Source: [employer]. 05/14/2016 documented as of this encounter Care Teams Qa Manager Relationship Specialty Start Date End Date Ashli Howell MD [facility] [address] [place] [address] PCP - General Family Medicine 05/06/24 Lissa White PA-C 500 [place] [address] Physician Operator Ground Based [employer] Defence Endocrinology, Diabetes, and Metabolism 01/05/24 Eriberto Romano MD [address] [place] [address] 195 [place] [address] Colon & Rectal 01/18/24 William Spain MD 717 [facility] 353 [facility] 1932 [place] [address] Assigned Nephrology Provider 01/26/24 Aroldo Kimbrough MD [address] [place] [address] Gastroenterology 05/12/24 Georgette Velez MD 500 [place] [address] Nephrology 05/26/24 documented as of this encounter
--- OUTSIDE RECORDS SUMMARY | 2024-06-27 22:32 | XMS_ITS | Encounter Summary ---
Author Organization [place] Address [facility] [place] [address] Care Team Providers Care Chief Dispatcher Name Role Phone Lissa White PA-C Unavailable Eriberto Romano MD Unavailable [phone] William Spain MD Unavailable [phone] Ashli Howell MD Primary Care Provider + [phone] Aroldo Kimbrough MD Unavailable Georgette Velez MD Unavailable [phone] Encounter Details Date Type Department Care Team (Late st Contact Info) Description 06/21/2024 [facility] [address] [place] [phone] Briseida Parson, RN Social History Tobacco [...] st Contact Info) Description 07/18/2024 PRE VISIT [facility] [address] [phone] Eriberto Romano MD [address] [place] [address] [phone] Previsit 07/18/2024 11:00 AM CDT Office Visit [facility] [address] [phone] Kylee Fu MD [address] [place], [place] [address] 2A [place], [place] [address] Eriberto Romano MD [address] [place] [phone] 08/19/2024 1:05 PM GAS PUMPING STATION OPERATOR Office Visit [facility] [address] [place] [phone] Georgette Velez MD [address] [place] [address] [phone] documented as of this encounter Visit Diagnoses Not on filedocumented in this encounter Additional Health Concerns Infection Onset Date Last Indicated Resolved Time MRSA Comment: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 Source: [employer]. 05/14/2016 documented as of this encounter Care Teams Chief Dispatcher Relationship Specialty Start Date End Date Ashli Howell MD [facility] [address] [place] [address] PCP - General Family Medicine 05/06/24 Lissa White PA-C 500 [place] [address] Physician Personnel Records Clerk Endocrinology, Diabetes, and Metabolism 01/05/24 Eriberto Romano MD 420 [facility] 195 [place] [address] Colon & Rectal 01/18/24 William Spain MD 717 [facility] 353 [facility] 1932 [place] [address] Assigned Nephrology Provider 01/26/24 Aroldo Kimbrough MD [address] [place] [address] Gastroenterology 05/12/24 Georgette Velez MD 500 [place] [address] Nephrology 05/26/24 documented as of this encounter
--- OUTSIDE RECORDS SUMMARY | 2024-06-27 22:32 | XMS_ITS | Encounter Summary ---
Author Organization [place] Address 2450 [facility] [place] [address] Care Team Providers Care Aerologist Name Role Phone Lissa White PA-C Unavailable Eriberto Romano MD Unavailable [phone] William Spain MD Unavailable [phone] Ashli Howell MD Primary Care Provider + [phone] Aroldo Kimbrough MD Unavailable Georgette Velez MD Unavailable [phone] Encounter Details Date Type Department Care Team (Late st Contact Info) Description 06/24/2024 External Order Results [facility] [address] [place] [address] Outside, Provider Social History Tobacco Use Types Packs/Day Years [...] Upcoming Encounters Date Type Department Care Team ([facility] st Contact Info) Description 07/18/2024 PRE VISIT [facility] [address] [phone] Eriberto Romano MD [address] 334865 Previsit 07/18/2024 11:00 AM CDT Office Visit [facility] [address] [phone] Kylee Fu MD [address] [place] [address] [address] [place], [place] [address] Eriberto Romano MD [address] 718315 08/19/2024 1:05 PM ELECTRICAL DESIGNER Office Visit [facility] [address] [place] [phone] Georgette Velez MD [address] [place] [address] documented as of this encounter Procedures Procedure Name Priority Date/Time Associated Diagnosis Comments EXTERNAL LAB RESULTS Routine 06/24/2024 12:00 AM CDT documented in this encounter Results * (ABNORMAL) External Lab Results (06/24/2024 12:00 AM CDT) Scan Lab Results (External) See Scanned Report(A) NON-INTERFACE D (ONBASE SCANS) Comment:Clostridioides diffi cile (Toxigenic C. diff) 06/24/2024 Narrative [facility] PFT - 06/27/2024 8:24 AM CDT Verified by Ganga Grace on 06/27/2024. Provider Outside LABORATORY [facility] PFT NON-INTERFACED (ONBASE SCANS) documented in this encounter Visit Diagnoses Not on filedocumented in this encounter Additional Health Concerns Infection Onset Date Last Indicated Resolved Time MRSA Comment: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 Source: [employer]. 05/14/2016 documented as of this encounter Care Teams Aerologist Relationship Specialty Start Date End Date Ashli Howell MD [facility] [address] [place] [address] PCP - General Family Medicine 05/06/24 Lissa White PA-C 500 [place], [place] [address] Physician Cash Management Coordinator Endocrinology, Diabetes, and Metabolism 01/05/24 Eriberto Romano MD 420 [facility] 195 [place], [place] [address] Colon & Rectal 01/18/24 William Spain MD 717 [facility] 353 [facility] [address] [place] [address] Assigned Nephrology Provider 01/26/24 Aroldo Kimbrough MD 909 [place], [place] [address] Gastroenterology 05/12/24 Georgette Velez MD 500 [place] [address] Nephrology 05/26/24 documented as of this encounter
--- OUTSIDE RECORDS SUMMARY | 2024-06-27 22:32 | XMS_ITS | Encounter Summary ---
Author Organization [place] Address [address] [place] [address]. [place] [address] Care Team Providers Care Controls Designer Name Role Phone Lissa White PA-C Unavailable Eriberto Romano MD Unavailable [phone] William Spain MD Unavailable [phone] Ashli Howell MD Primary Care Provider + [phone] Aroldo Kimbrough MD Unavailable Georgette Velez MD Unavailable [phone] Reason for Visit * Reason Onset Date Comments Call Back 06/20/2024 Encounter Details Date Type Department Care Team (Late st Contact Info) Description 06/20/2024 Telephone [facility] [address] [phone] Kylee Fu MD [address] [place] [address] [address] [place], [place] 480[address] Call Back Social History Tobacco Use Types [...] Telephone Encounter - Gianna Varela LPN - 06/24/2024 11:51 AM CDT Spoke to pt who states she just left the lab and will not be returning until Thursday. Orders faxed to [place]. FYI * Telephone Encounter - Daniela Majano RN - 06/23/2024 12:34 PM CDT Spoke with Catarina. She is having left sided flank pain. She does have urinary urgency at times andsometimes when she goes to bathroom it's just a few drops out. Encouraged to complete UA with reflex to culture. Catarina did end call due to being at the store and did not want to further discuss. * Telephone Encounter - Gianna Varela LPN - 06/23/2024 9:39 AM CDT Spoke to pt and instructed her of the need to leave a stool specimen to test for any infectious process. Pt then asks what should she do in the meantime when she has this excruciating pain. Pt statesit incapacitates her. Pt said that when she was in the hospital they gave her codeine. I suggested pt reach out to PCP for the pain meds. Pt states that she will need to loose another day of work and repeated her issues from yesterday. Audio Visual Coordinator unable to give pt any satisfactory answers. Please call pt. * Telephone Encounter - Gianna Varela LPN - 06/21/2024 11:02 AM CDT Spoke to pt who states that she has been having intermittent LLQ pain. Begins as a dull ache then escalates to constant pain rating it a 10. This morning pt experiencing loose watery stools at 5am every 15 minutes and took 3 imodium bby 730am. Pt states she cannot miss anymore time from work. Please help pt. * Telephone Encounter - Coco Stern - 06/20/2024 4:37 PM CDT [facility] Phone Message May a detailed message be left on voicemail: yes Reason for Call: Other: Patient calling to discuss EGD and colonoscopy and symptoms she is having now - pain in LLQ, fever, and diarrhea. Please call patient to discuss. Action Taken: Message routed to: [facility] Travel Screening: Not Applicable Date of Service: documented in this encounter Plan of Treatment Upcoming Encounters Date Type Department Care Team (Late st Contact Info) Description 07/18/2024 PRE VISIT [facility] [address] [place] [address] Eriberto Romano MD 420 [facility] 195 [place], [place] [address] Previsit 07/18/2024 11:00 AM CDT Office Visit [facility] [address] [place] [address] Kylee Fu MD 516 [facility] [address] [place], [place] [phone] Eriberto Romano MD 420 [facility] 195 [place] [address] 08/19/2024 1:05 PM COKEMAN Office Visit [facility] 909 [place] [phone] Georgette Velez MD 500 [place] [address] Scheduled Orders Name Type Priority Associated Diagnoses Orde r Schedule C. difficile Toxin B PCR with reflex to C. difficile Antigen and Toxins A/B EIA Microbiology Routine Diarrhea Expected: 06/23/2024 (Approximate), Expires: 07/23/2024 documented as of this encounter Visit Diagnoses Diagnosis Diarrhea- Primary documented in this encounter Additional Health Concerns Infection Onset Date Last Indicated Resolved Time MRSA Comment: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 Source: [employer]. 05/14/2016 documented as of this encounter Care Teams Controls Designer Relationship Specialty Start Date End Date Ashli Howell MD [facility] [address] [place] [address] PCP - General Family Medicine 05/06/24 Lissa White PA-C 500 [place] [address] Physician Interpreter Deaf Endocrinology, Diabetes, and Metabolism 01/05/24 Eriberto Romano MD 420 [facility] 195 [place] [address] Colon & Rectal 01/18/24 William Spain MD 717 [facility] 353 [facility] 1932 [place] [address] Assigned Nephrology Provider 01/26/24 Aroldo Kimbrough MD 909 [place], [place] [address] Gastroenterology 05/12/24 Georgette Velez MD 500 [place], [place] [address] Nephrology 05/26/24 documented as of this encounter
--- OUTSIDE RECORDS SUMMARY | 2024-06-27 22:32 | XMS_ITS | Encounter Summary ---
Author Organization [place] Address [address] [place] [address] Care Team Providers Care Clam Picker Name Role Phone Lissa White PA-C Unavailable Eriberto Romano MD Unavailable [phone] William Spain MD Unavailable [phone] Ashli Howell MD Primary Care Provider Aroldo Kimbrough MD Unavailable Georgette Velez MD Unavailable [phone] Encounter Details Date Type Department Care Team (Late st Contact Info) Description 05/23/2024 [facility] 9[address] [place] [phone] Georgette Velez MD [address] [place] [address] Social History Tobacco Use Types Packs/Day [...] encounter Miscellaneous Notes * Telephone Encounter - GoodOdell pathaken - 05/26/2024 10:48 AM CDT Left Voicemail (2nd Attempt) for the patient to call back and schedule the following: Appointment type: RKT Provider: ZOE Return date: 08/2024 Specialty phone number: [phone] Additional appointment(s) needed: N/A Additonal Notes: N/A * Telephone Encounter - Good Kavya - 05/23/2024 11:02 AM CDT Left Voicemail (1st Attempt) for the patient to call back and schedule the following: Appointment type: RKT Provider: ZOE Return date: 08/2024 Specialty phone number: [phone] Additional appointment(s) needed: N/A Additonal Notes: N/A documented in this encounter Plan of Treatment Upcoming Encounters Date Type Department Care Team (Late st Contact Info) Description 07/18/2024 PRE VISIT [facility] [address] [phone] Eriberto Romano MD [address] [place] [address] 002255 Previsit 07/18/2024 11:00 AM CDT Office Visit [facility] [address] [phone] Kylee Fu MD [address] [place] [address] [address] [place] [address] Eriberto Romano MD [address] [place] [address] 08/19/2024 1:05 PM ICE SKATER Office Visit [facility] 9[address] [place] [phone] Georgette Velez MD 500 [place] [address] documented as of this encounter Visit Diagnoses Not on filedocumented in this encounter Additional Health Concerns Infection Onset Date Last Indicated Resolved Time MRSA Comment: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 Source: [employer]. 05/14/2016 documented as of this encounter Care Teams Clam Picker Relationship Specialty Start Date End Date Ashli Howell MD [facility] [address] [place] [address] PCP - General Family Medicine 05/06/24 Lissa White PA-C 500 [place] [address] Physician Toll Booth Operator Endocrinology, Diabetes, and Metabolism 01/05/24 Eriberto Romano MD 420 [facility] 195 [place] [address] Colon & Rectal 01/18/24 William Spain MD 717 [facility] 353 [facility] [address] [place] [address] Assigned Nephrology Provider 01/26/24 Aroldo Kimbrough MD [address] [place] [address] Gastroenterology 05/12/24 Georgette Velez MD 500 [place], [place] [address] Nephrology 05/26/24 documented as of this encounter
--- OUTSIDE RECORDS SUMMARY | 2024-06-27 22:32 | XMS_ITS | Encounter Summary ---
Author Organization [place] Address [facility] [place] [address] Care Team Providers Care Mock Up Builder Name Role Phone Lissa White PA-C Unavailable Eriberto Romano MD Unavailable [phone] William Spain MD Unavailable [phone] Ashli Howell MD Primary Care Provider Aroldo Wells MD Unavailable Georgette Velez MD Unavailable [phone] Reason for Visit * Auth/Cert (Routine) Specialty Diagnoses / Procedures Referred By Beata pickett Referred To Contact Gastroenterology Diagnoses Dilated bile duct Pancreatic duct dilated Diverticulitis Dilated bile duct [K83.8] Pancreatic duct dilated [K86.89] Diverticulitis [K57.92] Procedures [place] COLONOSCOPY W/WO BRUSH/WASH ENDOSCOPIC ULTRASOUND, ESOPHAGOSCOPY / UPPER GASTROINTESTINAL TRACT (GI) Colonoscopy Endoscopy [address] [phone] Referral ID Status Reason Start Date Expiration Date Visits Re quested Visits Authorized [id number] 1 1 Encounter Details Date Type Department Care Team ([facility] st Contact Info) Description 06/16/2024 2:15 PM CDT - 06/16/2024 3:15 PM CDT Surgery [facility] Endoscopy [address] [phone] Aroldo Wells MD [address] [place] [address] ENDOSCOPIC ULTRASOUND, ESOPHAGOSCOPY / UPPER GASTROINTESTINAL TRACT (GI) Surgery Details Date/Time Status Location OR Service Patient Class Case Class Case Type Trauma Case? 06/16/24 2:15 PM Posted GI GI SP 01 Gastroenterology Outpatient Elective Panel 1 Procedure LRB Anes Op Region Wound Class Comments ENDOSCOPIC ULTRASOUND, ESOPHAGOSCOPY / UPPER GASTROINTESTINAL TRACT (GI) N/A MAC Esophagus II-Clean Cont aminated Colonoscopy N/A MAC Rectum II-Clean Contamina bill Surgeon Surgeon Role Service Panel Aroldo Wells MD Primary Gastroenterology 1 Special Needs 20 min req time documented in this encounter Social History Tobacco Use Types Packs/Day Years [...] Sign Reading Time Taken Comments Blood Pressure 81/54 06/16/2024 3:10 PM CDT Pulse 85 06/16/2024 3:10 PM CDT Temperature - - Respiratory Rate 19 06/16/2024 3:10 PM CDT Oxygen Saturation 99% 06/16/2024 3:10 PM CDT Inhaled Oxygen Concentration - - Weight 57.2 kg (126 lb) 06/16/2024 2:04 PM CDT Height 160 cm (5' 3) 06/16/2024 2:04 PM CDT Body Mass Index 22.32 06/16/2024 2:04 PM CDT documented in this encounter Medications at Time of Discharge Medication Sig Dispensed Refills Start Date End Date acyclovir (ZOVIRAX) 400 MG tabletIndications:Oscar dnida replaced by transplant ONE TABLET 3 TIMES [...] 05/06/2024 fluticasone (FLONASE) 50 MCG/ACT nasal spray [place] 1 spray into both nostrils daily as [...] st Contact Info) Description 07/18/2024 PRE VISIT [facility] [address] [phone] Eriberto Romano MD [address] [place] [address] [phone] Previsit 07/18/2024 11:00 AM CDT Office Visit [facility] [address] [phone] Racheal Nath MD [address] [place] [address] [address] [place], [place] [phone] Eriberto Romano MD [address] [place] [id number] 08/19/2024 1:05 PM [employer] SUPER[employer] Office Visit [facility] [address] [place] [phone] Georgette Velez MD [address] [place] [address] [phone] documented as of this encounter Procedures Procedure Name Priority Date/Time Associated Diagnosis Comments Colonoscopy w/wo Ursa Performed 06/16/2024 2:32 PM CDT Dilated bile [...] * UPPER EUS (06/16/2024 2:24 PM CDT) Upper EUS [place] [address] ??[address] ??[id number] Patient Name: Caatrina Almeida ?Procedure Date: 06/16/2024 2:24 PM ? Date of : 1950 ?Admit Type: Outpatient Age: 73 ? 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 Providers: ?AROLDO WELLS MD, Gamaliel [...] physician, ?the nurse, the anesthesiologist and the wildlife control agent ?in the procedure room. Mental Status Examination: [...] Procedure Code(s): ? --- Professional --- ? 98603, Esophagogastroduoden oscopy, flexible, transoral; with endoscopic ? ultrasound examination limited to the esophagus, stomach or duodenum, ? and adjacent structures CPT copyright 2021 [employer]. All rights reserved. The codes documented in this report are preliminary and upon quill winder review may be revised to meet current [...] RESULTS * COLONOSCOPY (06/16/2024 2:22 PM CDT) [facility] Signature COLONOSCOPY [facility] [address] ??[place] ??[id number] ___ Patient Name: Catarina Almeida ?Procedure Date: 06/16/2024 2:22 PM ? Date of : 1950 ?Admit Type: Outpatient Age: 73 ? Room: [place] [address] Note Status: Finalized ?Attending MD: AROLDO WELLS MD, Instrument Name: [id number] [facility] Colon ___ Procedure: ?Colonoscopy Indications: ?Follow-up of [...] physician, ?the nurse, the anesthesiologist and the wildlife control agent ?in the procedure room. Mental Status Examination: [...] bowel preparation was evaluated using the ?BBPS ([place] Bowel Preparation Scale) with scores ?of: Right [...] Procedure Code(s): ? --- Professional --- ? 12989, Colonoscopy, flexible; diagnostic, including collection of ? specimen(s) by brushing or washing, when performed (separate procedure) CPT copyright 2021 [employer]. All rights reserved. The codes documented in this report are preliminary and upon quill winder review may be revised to meet current [...] RESULTS documented in this encounter Visit Diagnoses Diagnosis Dilated bile duct Other specified disorders of biliary tract Pancreatic duct dilated Other specified disease of pancreas Diverticulitis Diverticulitis of colon (without mention of hemorrhage) documented in this encounter Administered Medications Inactive Administered [...] Time MRSA Comment: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 Source: [facility] MET-TECH. 05/14/2016 documented as of this encounter Care Teams Mock Up Builder Relationship Specialty Start Date End Date Ashli Howell MD [facility] [address] [place] [address] PCP - General Family Medicine 05/06/24 Lissa White PA-C [address] [place] [address] [phone] Physician Direct Support Professional Caregiver Endocrinology, Diabetes, and Metabolism 01/05/24 Eriberto Romano MD [address] [place] [address] [phone] Colon & Rectal 01/18/24 William Spain MD [address] [facility] [address] [facility] [address] [place] [address] Assigned Nephrology Provider 01/26/24 Aroldo Wells MD [address] [place] [id number] Gastroenterology 05/12/24 Georgette Velez MD [address] [place] [address] Nephrology 05/26/24 documented as of this encounter
--- OUTSIDE RECORDS SUMMARY | 2024-06-27 22:32 | XMS_ITS | Referral Summary ---
Author Organization [facility] Address [address] [place] [address] Care Team Providers Care Warp Tier Name Role Phone Lissa White PA-C Unavailable Eriberto Romano MD Unavailable [phone] William Spain MD Unavailable [phone] Ashli Howell MD Primary Care Provider Aroldo Wells MD Unavailable Georgette Velez MD Unavailable [phone] Encounters Date Type Department Care Team Description 06/24/2024 External Order Results [facility] [address] [place] [address] Outside, Provider 06/23/2024 Telephone [facility] [address] [place] [phone] Daniela Majano, business services manager Refill 06/22/2024 Telephone [facility] [address] [place] [phone] Scarlet Cruz, RUIZ Haven't recieved call back after recent phone call 06/21/2024 MyC Medical Advice [facility] [address] [place] [phone] Briseida Parson RN 06/20/2024 Telephone [facility] [address] [address] Racheal Fu MD Call Back 06/16/2024 2:31 PM CDT Anesthesia Event [facility] [address] [phone] Nicko Andrea MD Miller, Rebecca, APRN BUSINESS DATABASE ANALYST 06/16/2024 2:15 PM CDT - 06/16/2024 3:15 PM CDT Surgery [facility] [address] [phone] Aroldo Wells MD ENDOSCOPIC ULTRASOUND, ESOPHAGOSCOPY / UPPER GASTROINTESTINAL TRACT (GI) 06/16/2024 1:08 PM CDT - 06/16/2024 3:49 PM CDT Hospital Encounter [facility] [address] [phone] Aroldo Wells MD Discharge Disposition: Home or Self Care 05/26/2024 Orders Only [facility] [address] [place] [phone] Scarlet Cruz RN Kidney transplanted (Primary Dx); Aftercare following organ transplant 05/23/2024 MyC Medical Advice [facility] [address] [place] [phone] Brian Beckford 05/23/2024 Telephone [facility] [address] [place] [phone] Georgette Velez MD 05/20/2024 MyC Medical Advice [facility] [address] [place] [phone] Rox Kelly, RUIZ 05/20/2024 Telephone [facility] [address] [place] [phone] Scarlet Cruz RN Transplant 05/18/2024 Telephone [facility] [address] [place] [address] None Procedure (COLON cxl) 05/18/2024 MyC Medical Advice [facility] [address] [phone] Fortunato Burgess 05/18/2024 Prep for Procedure [facility] [address] [phone] Maria Guadalupe Conner RN 05/17/2024 10:15 AM CDT Lab [facility] [address] [address] Liver transplanted (H); Aftercare following organ transplant; Encounter for long-term current use of medication; Kidney replaced by transplant; Liver replaced by transplant (H); Kidney transplanted; Immunosuppressed status (H24); Encounter for long-term (current) use of high-risk medication 05/17/2024 Travel 05/17/2024 9:30 AM CDT Office Visit [facility] [address] [phone] Racheal Fu MD Liver transplanted (H) 05/16/2024 Travel 05/13/2024 Telephone [facility] [address] [phone] Rosalind South MA 05/12/2024 Travel 05/12/2024 Prep for Procedure [facility] [address] [phone] Maria Guadalupe Conner, RN Dilated bile duct (Primary Dx); Pancreatic duct dilated 05/02/2024 1:09 PM CDT - 05/06/2024 4:15 PM CDT Hospital Encounter [place] [address] Oncology [address] [place] [address] Enrique Cbua MD [place], Jacques Thomas MD HTN, kidney [...] or Self Care 05/02/2024 MyC Medical Advice [address] [phone] Candice Wilde CMA 05/02/[address] [phone] Lissa White PA-C Glucose (Glucose data for 05/04 appt ) 05/02/2024 Travel 04/26/2024 MyC Medical Advice [facility] [address] [phone] Shari Roblero LPN 04/22/2024 Telephone [facility]at[facility] [address] [phone] Racheal Fu MD 04/22/2024 MyC Medical Advice [facility] [address] [address] [facility] 04/04/[facility]24 PRE VISIT [facility] [address] [phone] Eriberto Romano MD Previsit 03/29/2024 Yahaira Medical Advice [facility] [address] [phone] Clarita De La Rosa 03/29/2024 Telephone [facility] [address] [phone] Clarita De La Rosa from Last 3 Months Allergies No known [...] Active fluticasone (FLONASE) 50 MCG/ACT nasal spray Alicia 1 spray into both nostrils daily as [...] st Contact Info) Description 07/18/2024 PRE VISIT [facility] [address] 4th [place] [address] Eriberto Romano MD [address] [place] [address] [address] [place], [place] [phone] Previsit 07/18/2024 11:00 AM CDT Office Visit [facility] [address] 4th [place] [phone] Racheal Fu MD [address] [facility] [address] [place], [place] [address] Eriberto Romano MD 420 [facility] [address] [place] [address] 08/19/2024 1:05 PM GRID TRIMMER Office Visit [facility] [address] [facility] [place] [address] Georgette Velez MD [address] [facility] [place] [address] Procedures Procedure Name Priority Date/Time Associated Diagnosis Comments EXTERNAL LAB RESULTS Routine 06/24/2024 12:00 AM CDT Colonoscopy w/wo [place] Performed 06/16/2024 2:32 PM CDT Dilated bile [...] Outside LABORATORY INA PFT NON-INTERFACED (ONBASE SCANS) * UPPER EUS (06/16/2024 2:24 PM CDT) Pathologist [place] [address] ??[id number] Patient Name: Catarina Almeida ?Procedure Date: 06/16/2024 2:24 PM ? Date of : 1950 ?Admit Type: Outpatient Age: 73 ? Room: [place] [address] Note Status: Finalized ?Attending MD: AROLDO WELLS MD, Instrument Name: [id number] Linear Procedure: ?Upper EUS Indications: ?Common bile duct dilation (acquired) seen on MRCP, ?Dilated pancreatic duct on MRCP, s/p Liver and ?Kidney Transplant at [facility] in ?2017 due to hepatitis C with a [id number] biliary ?reconstruction. Providers: ?AROLDO WELLS MD, Gamaliel [...] physician, ?the nurse, the anesthesiologist and the tester equipment ?in the procedure room. Mental Status Examination: [...] Procedure Code(s): ? --- Professional --- ? 27220, Esophagogastroduoden oscopy, flexible, transoral; with endoscopic ? ultrasound examination limited to the esophagus, stomach or duodenum, ? and adjacent structures CPT copyright 2021 [employer]. All rights reserved. The codes documented in this report are preliminary and upon screen printing cloth spreader review may be revised to meet current [...] * COLONOSCOPY (06/16/2024 2:22 PM CDT) COLONOSCOPY [place] [address] ??[place] ??[id number] ___ Patient Name: Catarina Almeida ?Procedure Date: 06/16/2024 2:22 PM ? Date of : 1950 ?Admit Type: Outpatient Age: 73 ? Room: [facility] 01 Note Status: Finalized ?Attending MD: AROLDO WELLS MD, Instrument Name: [id number] Peds Colon ___ Procedure: ?Colonoscopy Indications: ?Follow-up [...] physician, ?the nurse, the anesthesiologist and the tester equipment ?in the procedure room. Mental Status Examination: [...] bowel preparation was evaluated using the ?BBPS ([place] Bowel Preparation Scale) with scores ?of: Right [...] Procedure Code(s): ? --- Professional --- ? 23051, Colonoscopy, flexible; diagnostic, including collection of ? specimen(s) by brushing or washing, when performed (separate procedure) CPT copyright 2021 [employer]. All rights reserved. The codes documented in this report are preliminary and upon screen printing cloth spreader review may be revised to meet current [...] Light Yellow, Yellow 05/17/2024 10:59 AM CDT [facility] Appearance Urine Clear Clear 05/17/20 10:59 AM CDT [facility] Glucose Urine Negative Negative mg/dL 05/17/2024 10:59 AM CDT [facility] Bilirubin Urine Negative Negative 4 10:59 AM CDT [facility] Ketones Urine Negative Negative mg/dL 05/17/2024 10:59 AM CDT [facility] Specific [place] Urine 1.014 1.003 - 1.035 05/17/2024 10:59 AM CDT [facility] Blood Urine Negative Negative 05/17/2024 10:59 AM CDT [facility] pH Urine 6.0 5.0 - 7.0 05/17/2024 10:59 AM CDT [facility] Protein Albumin Urine Negative Negative mg/dL 05/17/2024 10:59 AM CDT [facility] Urobilinogen Urine Normal Normal, 2.0 mg/dL 05/17/2024 10:59 AM CDT [facility] Nitrite Urine Negative Negative 05/17/2024 10:59 AM CDT [facility] Leukocyte Esterase Urine Negative Negative 05/17/2024 10:59 AM CDT [facility] RBC Urine <1 <=2 /HPF 05/17/2024 10:59 AM CDT [facility] WBC Urine 2 <=5 /HPF 05/17/2024 10:59 AM CDT [facility] Squamous Epithelials Urine 1 <=1 /HPF 05/17/2024 10:59 AM CDT [facility] Urine MID-STREAM URINE SPECIMEN / Unknown Non-blood Collection / Unknown 05/17/2024 10:52 AM CDT 05/17/2024 10:53 AM CDT Narrative [facility] - 05/17/2024 10:59 AM CDT Urine Culture not indicated Racheal Fu MD LAB - URIN E ORDERABLES Performing Organization Address [facility]/State/ZIP Co de Phone Number [facility] [address] 1st [place] [address] * Davis Kelly Virus Quantitative PCR, Plasma [...] MD LAB - MICRO GENE RAL ORDERABLES IDD LABORATORY [facility] Inf. Diseases Diag. Lab [address] [facility], [address] [place] [phone] * Tacrolimus by Tandem Mass Spectrometry (05/17/2024 10:27 AM CDT) Only the most recent of2 resultswithin the time period is included. Tacrolimus by Tandem Mass Spectrometry 6.4 5.0 - 15.0 ug/L 05/17/2024 2:26 PM CDT [facility] DRUG/BGEN Comment: Tacrolimus Reference Range (ug/L): Kidney [...] and its performance characteristics determined by the [facility], ??Special Chemistry Laboratory. It has not been cleared or approved by the FDA. The laboratory is regulated under CLIA as qualified to perform high-complexity testing. This test is used for clinical purposes. It should not be regarded as investigational or for research. Racheal Fu MD LAB - BLOO D ORDERABLES [facility]/BG[facility] Drug/BGEN [address] [facility], [address] [place] [address] * (ABNORMAL) T cell subset profile (05/17/2024 10:27 AM CDT) CD3% Total T Cells 94(H) 49 - 84 % 05/17/2024 2:51 PM CDT [facility] FLOW CYTOMETRY Absolute CD3, Total T Cells 1,936 603 - 2,990 cells/uL 05/17/2024 2:51 PM CDT [facility] FLOW CYTOMETRY CD4% Lohman T Cells 35 28 - 63 % 05/17/2024 2:51 PM CDT [facility] FLOW CYTOMETRY Absolute CD4, Lohman T Cells 720 441 - 2,156 cells/uL [...] Spain MD LAB - BLOOD GA AMARAL FLOW CYTOMETRY [facility] Flow Cytometry [address] [facility] J [facility], Room [address] * INR (05/17/2024 10:27 AM CDT) Pathologist [facility] INR 0.88 0.85 - 1.15 05/17/2024 10:42 AM CDT [facility] Blood STRUCTURE OF LEFT UPPER LIMB / Unknown Venipuncture / Unknown 05/17/2024 10:27 AM CDT 05/17/2024 10:27 AM CDT Racheal Fu MD LAB - BLOO D ORDERABLES [facility] [place] [address] [facility] 1st [place] [address] * Hepatic function panel (05/17/2024 10:27 AM CDT) Only the most recent of2 resultswithin the time period is included. Protein Total 6.9 6.4 - 8.3 g/dL 05/17/2024 10:56 AM CDT [facility] Albumin 4.4 3.5 - 5.2 g/dL 05/17/2024 10:56 AM CDT [facility] Bilirubin Total 0.2 <=1.2 mg/dL 05/17/2024 10:56 AM CDT [facility] Alkaline Phosphatase 55 40 - 150 U/L 05/17/2024 10:56 AM CDT [facility] AST 16 0 - 45 U/L 05/17/2024 10:56 AM CDT [facility] ALT 7 0 - 50 U/L 05/17/2024 10:56 AM CDT [facility] Bilirubin Direct <0.20 0.00 - 0.30 mg/dL 05/17/2024 10:56 AM CDT [facility] Blood STRUCTURE OF LEFT UPPER LIMB / Unknown Venipuncture / Unknown 05/17/2024 10:27 AM CDT 05/17/2024 10:27 AM CDT Racheal Fu MD LAB - BLOO D ORDERABLES [facility] [place] [address] [facility] 1st [place] [address] * CMV Quantitative, PCR (Blood) (05/17/2024 10:27 AM CDT) CMV DNA IU/mL Not Detected Not Detected IU/mL 05/17/2024 5:26 PM CDT [facility]ORAT[facility] Blood STRUCTURE OF LEFT UPPER LIMB / Unknown Venipuncture / Unknown 05/17/2024 10:27 AM CDT 05/17/2024 10:27 AM CDT Narrative [facility] - 05/17/2024 5:26 PM CDT The [...] only. The Infectious Diseases Diagnostic Laboratory at [facility] has validated the performance characteristics of the kendrick?? CMV assay for plasma and urine. William Spain MD LAB - MICRO GENE RAL ORDERABLES [facility]ORATORY [facility] Inf. Diseases Diag. Lab [address] [facility], [address] [place] [address], [facility] * (ABNORMAL) Basic metabolic panel (05/17/2024 10:27 AM CDT) Only the most recent of2 resultswithin the time period is included. Sodium 141 135 - 145 mmol/L 05/17/2024 10:56 AM CDT [facility] Potassium 4.0 3.4 - 5.3 mmol/L 05/17/2024 10:56 AM CDT [facility] Chloride 108(H) 98 - 107 mmol/L 05/17/2024 10:56 AM CDT [facility] Carbon Dioxide (CO2) 23 22 - 29 mmol/L 05/17/2024 10:56 AM T [facility] Anion Gap 10 7 - 15 mmol/L 05/17/2024 10:56 AM CDT [facility] Urea Nitrogen 14.2 8.0 - 23.0 mg/dL 05/17/2024 10:56 AM T [facility] Creatinine 1.21(H) 0.51 - 0.95 mg/dL 05/17/2024 10:56 AM T [facility] GFR Estimate 48(L) >60 mL/min/1.7 3m2 05/17/2024 10:56 AM T [facility] Comment:eGFR calculated usin g 2020 CKD-EPI equation. Calcium 9.7 8.8 - 10.4 mg/dL 05/17/2024 10:56 AM CDT [facility] Comment:Reference intervals for this test were updated on 04/19/2024 to reflect our healthy population more accurately. There may be differences in the flagging of prior results with similar values performed with this method. Those prior results can be interpreted in the context of the updated reference intervals. Glucose 101(H) 70 - 99 mg/dL 05/17/2024 10:56 AM CDT [facility] Blood STRUCTURE OF LEFT UPPER LIMB / Unknown Venipuncture / Unknown 05/17/2024 10:27 AM CDT 05/17/2024 10:27 AM CDT Racheal Fu MD LAB - BLOO D ORDERABLES [facility] [address] [place] [address] 1st [place] [address] * (ABNORMAL) CBC with platelets (05/17/2024 10:27 AM CDT) Only the most recent of2 resultswithin the time period is included. WBC Count 9.5 4.0 - 11.0 10e3/uL 05/17/2024 10:33 AM CDT [facility] RBC Count 5.03 3.80 - 5.20 10e6/uL 05/17/2024 10:33 AM CDT [facility] Hemoglobin 13.0 11.7 - 15.7 g/dL 05/17/2024 10:33 AM CDT [facility] Hematocrit 40.8 35.0 - 47.0 % 05/17/2024 10:33 AM CDT [facility] MCV 81 78 - 100 fL 05/17/2024 10:33 AM CDT [facility] MCH 25.8(L) 26.5 - 33.0 pg 05/17/2024 10:33 AM CDT [facility] MCHC 31.9 31.5 - 36.5 g/dL 05/17/2024 10:33 AM CDT [facility] RDW 15.0 10.0 - 15.0 % 05/17/2024 10:33 AM CDT [facility] Platelet Count 229 150 - 450 10e3/uL 05/17/2024 10:33 AM CDT [facility] Blood STRUCTURE OF LEFT UPPER LIMB / Unknown Venipuncture / Unknown 05/17/2024 10:27 AM CDT 05/17/2024 10:27 AM CDT Racheal Fu MD LAB - BLOO D ORDERABLES [facility] Clinics and Surgery [place] - [address] 1st [place] [address] * (ABNORMAL) Potassium (External Result) (05/10/2024 1:25 PM CDT) Potassium (External) 3.3(A) 3.6 - 5.1 mmol/L [facility] Blood 05/10/2024 1:25 PM CDT [facility] - 05/10/2024 1:25 PM CDT [facility]- External Lab Results Provider Outside LAB - HIM EXTERNAL R ESULT Performing Organization Address City/[facility] Co de Phone Number [facility] [address] [place] [address], [facility] [phone] * Glucose (External Result) (05/10/2024 1:25 PM CDT) Glucose (External) 113 60 - 115 mg/dL [facility] Blood 05/10/2024 1:25 PM CDT [facility] - 05/10/2024 1:25 PM CDT [facility]- External Lab Results Provider Outside LAB - HIM EXTERNAL R ESULT Performing Organization Address City/[facility]/ZIP Co de Phone Number [facility] [address] [place] [address], [facility] [phone] * Creatinine (External Result) (05/10/2024 1:25 PM CDT) Creatinine (External) 1.2 0.5 - 1.5 mg/dL [facility] Blood 05/10/2024 1:25 PM CDT [facility] - 05/10/2024 1:25 PM CDT [facility]- External Lab Results Provider Outside LAB - HIM EXTERNAL R ESULT Performing Organization Address City/[facility]/ZIP Co de Phone Number [address] [phone] * AST (External Result) (05/10/2024 1:25 PM CDT) AST (External) 23 12 - 35 U/L [facility] Blood 05/10/2024 1:25 PM CDT [facility] - 05/10/2024 1:25 PM CDT [facility]- External Lab Results Provider Outside LAB - [facility] EXTERNAL R ESULT Performing Organization Address City/[facility]/ZIP Co de Phone Number [address] [phone] * ALT (External Result) (05/10/2024 1:25 PM CDT) ALT (External) 10 4 - 35 U/L [facility] Blood 05/10/2024 1:25 PM CDT [facility] - 05/10/2024 1:25 PM CDT [facility]- External Lab Results Provider Outside LAB - HIM EXTERNAL R ESULT Performing Organization Address City/[facility]/ZIP Co de Phone Number [address] [phone] * Lab Result - HIM Scan (05/10/2024 12:00 AM CDT) 05/10/2024 Provider Outside NON-BEAKER LAB TE STING * EKG Cardiac - HIM Scan (05/10/2024 12:00 AM CDT) 05/10/2024 Provider Outside ECG ORDERABLES * (ABNORMAL) Glucose by meter (05/06/2024 1:38 PM CDT) Only the most recent of19 resultswithin the time period is included. [facility] GLUCOSE BY METER POCT 131(H) 70 - 99 mg/dL 05/06/2024 1:48 PM CDT LABORATORY POC Blood, Capillary BLOOD SPECIMEN / Unknown 05/06/2024 1:38 PM CDT 05/06/2024 1:48 PM CDT Abdelrahman Esquivel PA-C LAB - BEAKER POCT LABORATORY POC [facility] Lab [address] 1[address], [address] [place] [address] * (ABNORMAL) CBC with platelets and differential (05/06/2024 8:36 AM CDT) Only the most recent of2 resultswithin the time period is included. Pathologist [facility] WBC Count 8.7 4.0 - 11.0 10e3/uL [...] LAB - BLOOD ORDER JOSE D LABORATORY [facility] [address] floor, [address] [place] [address], [facility] [phone] * EKG 12-lead, tracing only (05/05/2024 8:24 AM CDT) Only the most recent of4 resultswithin the time period is included. Systolic Blood Pressure mmHg RADIOLOGY RESULTS Diastolic Blood Pressure mmHg RADIOLOGY RESULTS Ventricular Rate 70 BPM RAD IOLOGY RESULTS Atrial Rate 70 BPM RADIOLOG Y RESULTS NM Interval 178 ms RADIOLOG Y RESULTS QRS Duration 100 ms RADIOLO GY RESULTS QT 466 ms RADIOLOGY RESULTS QTc 503 ms RADIOLOGY RESULTS P [place] 69 degrees RADIOLOGY RESULTS R AXIS 94 degrees RADIOLOGY RESULTS T [place] 246 degrees RADIOLOGY RESULTS Interpretation ECG Sinus rhythm Incomplete right bundle branch block ST & Marked T wave abnormality, consider inferior ischemia ST & Marked T wave abnormality, consider anterolateral ischemia Prolonged QT Abnormal ECG When compared with ECG of 04-May-2024 16:10, (unconfirmed) Incomplete right bundle branch block is now Present Confirmed by MD TIANNA, RISHI ([id number]) on 05/05/2024 2:40:24 PM RADIOLOGY RESULTS 05/05/2024 8:24 AM CDT 05/05/2024 2:40 PM CDT Rosalee Anglin DO ECG ORDERABLE S RADIOLOGY RESULTS * (ABNORMAL) Comprehensive metabolic panel (05/05/2024 8:24 AM CDT) Only the most recent of4 resultswithin the time period is included. Pathologist [facility] Sodium 142 135 - 145 mmol/L 05/05/2024 9:25 AM CDT LABORATORY Potassium 3.6 3.4 - 5.3 mmol/L 05/05/2024 9:25 AM CDT LABORATORY Carbon Dioxide (CO2) 19(L) 22 - 29 mmol/L 05/05/2024 9:25 AM CDT LABORATORY Anion Gap 11 7 - 15 mmol/L 05/05/2024 9:25 AM CDT LABORATORY Urea Nitrogen 9.6 8.0 - 23.0 mg/dL 05/05/2024 9:25 AM CDT LABORATORY Creatinine 1.32(H) 0.51 - 0.95 mg/dL 05/05/2024 9:25 AM CDT LABORATORY GFR Estimate 43(L) >60 mL/min/1.7 3m2 05/05/2024 9:25 AM CDT LABORATORY Comment:eGFR calculated in 2020 CKD-EPI equation. Calcium 8.5(L) 8.8 - 10.4 mg/dL 05/05/2024 9:25 AM CDT LABORATORY Comment:Reference intervals for this test were updated on 04/19/2024 to reflect our healthy population more accurately. There may be differences in the flagging of prior results with similar values performed with this method. Those prior results can be interpreted in the context of the updated reference intervals. Chloride 112(H) 98 - 107 mmol/L 05/05/2024 9:25 AM CDT LABORATORY Glucose 103(H) 70 - 99 mg/dL 05/05/2024 9:25 AM CDT LABORATORY Alkaline Phosphatase 40 40 - 150 U/L 05/05/2024 9:25 AM CDT LABORATORY AST 16 0 - 45 U/L 05/05/2024 9:25 AM CDT LABORATORY ALT 7 0 - 50 U/L 05/05/2024 9:25 AM CDT LABORATORY Protein Total 5.4(L) 6.4 - 8.3 g/dL 05/05/2024 9:25 AM CDT LABORATORY Albumin 3.4(L) 3.5 - 5.2 g/dL 05/05/2024 9:25 AM CDT LABORATORY Bilirubin Total 0.3 <=1.2 mg/dL 05/05/2024 9:25 AM CDT LABORATORY Blood STRUCTURE OF RIGHT HAND / Unknown Venipuncture / Unknown 05/05/2024 8:24 AM CDT 05/05/2024 8:41 AM CDT Brenton Diez MD LAB - BLOOD ORDERABL ES LABORATORY [facility] Acute Care Lab [address] floor, [address] [place] [address], [facility] [phone] * Lipase (05/04/2024 7:50 AM CDT) Only the most recent of2 resultswithin the time period is included. Lipase 21 13 - 60 U/L 05/04/2024 9:10 AM CDT LABORATORY Blood STRUCTURE OF RIGHT UPPER LIMB / Unknown Venipuncture / Unknown 05/04/2024 7:50 AM CDT 05/04/2024 7:59 AM CDT Maurizio BARKLEY LAB - BLOOD ORD ERABLES LABORATORY [facility] Lab [address] 1[address] floor, [address] [place] [address], [facility] [phone] * CRP inflammation (05/04/2024 7:50 AM CDT) CRP Inflammation <3.00 <5.00 mg/L 05/04/20 9:10 AM CDT LABORATORY Blood STRUCTURE OF RIGHT UPPER LIMB / Unknown Venipuncture / Unknown 05/04/2024 7:50 AM CDT 05/04/2024 7:59 AM CDT Maurizio BARKLEY LAB - BLOOD ORD ERABLES LABORATORY [facility] Lab [address] floor, [address] [place] [address], [facility] [phone] * Urine Culture (05/03/2024 7:39 PM CDT) Pathologist [facility] Culture No Growth 05/05/2024 4:56 AM CDT [facility] Urine MID-STREAM URINE SPECIMEN / Unknown Non-blood Collection / Unknown 05/03/2024 7:39 PM CDT 05/03/2024 8:22 PM CDT Jacques Iniguez MD LAB - MICRO GEN ERAL ORDERABLES [facility] LABORATORY [facility] Inf. Diseases Diag. Lab [address] [facility] [address], [address] [place] [address], [facility] * Magnesium (05/03/2024 11:06 AM CDT) Only the most recent of2 resultswithin the time period is included. Magnesium 2.1 1.7 - 2.3 mg/dL 05/03/2024 11:47 AM CDT LABORATORY Blood STRUCTURE OF RIGHT UPPER LIMB / Unknown Venipuncture / Unknown 05/03/2024 11:06 AM CDT 05/03/2024 11:24 AM CDT Jacques Muñiz MD LAB - BLOOD OR DERABLES LABORATORY [facility] Acute Care Lab [address] 1[address] floor, [address] [place] [address], [facility] [phone] * MR Abdomen MRCP w/o & w [...] ABDOMEN MRCP W/O and W CONTRAST LOCATION: [facility] DATE: 05/03/2024 INDICATION: history of liver and [...] of previously described infarct. Normal adrenals. Atrophic ione kidneys. Right lower quadrant transplant kidney with [...] ABDOMEN MRCP W/O and W CONTRAST LOCATION: [facility] DATE: 05/03/2024 INDICATION: history of liver and [...] LIVER: Status post hepatic transplantation. Multiple benign I0oolruaojmgmk cysts. No suspicious liver lesion. The central [...] region of previously describedinfarct. Normal adrenals. Atrophic ione kidneys. Right lower quadranttransplant kidney with hypoenhancement [...] right pelvic transplant kidney. Jacques Muñiz MD IM MRI ORDERA BLES * (ABNORMAL) Lactic acid whole blood (05/02/2024 5:11 PM CDT) Lactic Acid 0.6(L) 0.7 - 2.0 mmol/L 05/02/2024 5:16 PM CDT LABORATORY Blood VENOUS LINE / Unknown Venipuncture / Unknown 05/02/2024 5:11 PM CDT 05/02/2024 5:15 PM CDT Enrique Cuba MD LAB - BLOOD ORDERABL ES LABORATORY [facility] Acute Care Lab [address] floor, [address] [place] [address], [facility] [phone] * Blood Culture Line, venous (05/02/2024 5:11 PM CDT) Culture No Growth 05/07/2024 5:16 PM CDT [facility] Blood VENOUS LINE / Unknown Venipuncture / Unknown 05/02/2024 5:11 PM CDT 05/02/2024 5:15 PM CDT Abdelrahman Esquivel PA-C LAB - MICRO GENERAL ORDERABLES [facility]ORAT[facility] Inf. Diseases Diag. Lab [address] [facility] [address], [address] [place] [address], [facility] * US Renal Transplant with Doppler [...] EXAM: US RENAL TRANSPLANT WITH DOPPLER LOCATION: [facility] DATE: 05/02/2024 INDICATION: Right lower quadrant renal [...] EXAM: US RENAL TRANSPLANT WITH DOPPLER LOCATION: [facility] DATE: 05/02/2024 INDICATION: Right lower quadrant renal [...] of2 resultswithin the time period is included. Troponin T, High Sensitivity 44(H) <=14 ng/L [...] PA-C LAB - BLOOD ORDERABL ES LABORATORY [facility] Acute Care Lab [address] floor, [address] [place] [address], [place] [phone] * CT Chest (PE) Abdomen Pelvis w [...] 3D MIP reconstructions were performed by the radiation therapy technologist. Dose reduction techniques were used. CONTRAST: 62 [...] GLANDS: No significant nodules. KIDNEYS/BLADDER: Atrophic bilateral ione kidneys which are symmetrically enhancing without hydronephrosis. [...] 3D MIP reconstructions were performed by the radiation therapy technologist. Dose reduction techniques were used. CONTRAST: 62 [...] GLANDS: No significant nodules. KIDNEYS/BLADDER: Atrophic bilateral ione kidneys which are symmetrically enhancing without hydronephrosis. [...] months. LEYDA MCKENZIE MD Abdelrahman Esquivel PA-C [facility]LES * Symptomatic Influenza A/B, RSV, & SARS-CoV2 PCR (COVID-19) Nasopharyngeal (05/02/2024 1:37 PM CDT) Pathologist [facility] Influenza A PCR Negative Negative 05/02/2024 2:27 [...] 1:37 PM CDT 05/02/2024 1:47 PM CDT [facility] LABORATORY - 05/02/2024 2:27 PM CDT Testing was performed using the Xpert Xpress CoV2/Flu/RSV Assay on the [employer] GeneXpert Instrument. This test should be ordered [...] management. This test was validated by the [facility]. These laboratories are certified under the Clinical Laboratory Improvement Amendments of 1988 (CLIA-88) as qualified to perform high complexity laboratory testing. Abdelrahman Esquivel PA-C LAB - MICRO GENERAL ORDERABLES LABORATORY [facility] Lab [address] 1[address] floor, [address] [place] [address], [facility] [phone] * (ABNORMAL) iStat Gases (lactate) venous, POCT (05/02/2024 1:26 PM CDT) Lactic Acid POCT 2.1(H) <=2.0 mmol/L 05/02/2024 [...] PM CDT 05/02/2024 1:35 PM CDT Enrique NAJERA - JULI POCT LABORATORY POC [facility] [address] floor, [address] [place] [address], [facility] * Extra Red Top Tube (05/02/2024 1:23 PM CDT) Hold Specimen [facility] 05/02/2024 2:47 PM CDT LABORATORY Blood STRUCTURE OF LEFT UPPER LIMB / Unknown Venipuncture / Unknown 05/02/2024 1:23 PM CDT 05/02/2024 1:40 PM CDT Enrique Cuba MD LAB - BLOOD ORDERABL ES LABORATORY [facility] [address] 1[address] floor, [address] [place] [address], [facility] [phone] * Extra Blue Top Tube (05/02/2024 1:23 PM CDT) Hold Specimen [facility] 05/02/2024 2:47 PM CDT LABORATORY Blood STRUCTURE OF LEFT UPPER LIMB / Unknown Venipuncture / Unknown 05/02/2024 1:23 PM CDT 05/02/2024 1:40 PM CDT Enrique Cuba MD LAB - BLOOD ORDERABL ES LABORATORY [facility] [address] floor, [address] [place] [address], [facility] [phone] * (ABNORMAL) TSH with free T4 reflex (05/02/2024 1:23 PM CDT) TSH 4.64(H) 0.30 - 4.20 uIU/mL 05/02/2024 2:35 PM CDT LABORATORY Blood BLOOD SPECIMEN / Unknown Venipuncture / Unknown 05/02/2024 1:23 PM CDT 05/02/2024 1:40 PM CDT Abdelrahman Esquivel PA-C LAB - BLOOD ORDERABL ES LABORATORY [facility] [address] 1[address] floor, [address] [place] [address], [facility] [phone] * T4 free (05/02/2024 1:23 PM CDT) Free T4 1.39 0.90 - 1.70 ng/dL 05/02/2024 2:57 PM CDT LABORATORY Blood BLOOD SPECIMEN / Unknown Venipuncture / Unknown 05/02/2024 1:23 PM CDT 05/02/2024 1:40 PM CDT Abdelrahman Esquivel PA-C LAB - BLOOD ORDERABL ES Performing Organization Address [facility] Co de Phone Number LABORATORY [facility] [address], [address] [place] [address], [facility] [phone] * (ABNORMAL) Nt probnp inpatient (BNP) (05/02/2024 [...] - BLOOD ORDERABL ES Performing Organization Address City/[facility]/ZIP Co de Phone Number LABORATORY [facility] Acute Care Lab [address] 1[address] floor, [address] [place] [address], [facility] [phone] * (ABNORMAL) Hemoglobin A1c (05/02/2024 1:23 PM CDT) Hemoglobin A1C 6.1(H) <5.7 % 05/02/2024 9:34 PM CDT LABORATORY Comment: Normal <5.7% Prediabetes 5.7-6.4% ?? Diabetes 6.5% or higher Note: Adopted from ADA consensus guidelines. Blood BLOOD SPECIMEN / Unknown Venipuncture / Unknown 05/02/2024 1:23 PM CDT 05/02/2024 1:40 PM CDT Jacques Muñiz MD LAB - BLOOD OR DERABLES LABORATORY [facility] [address] 1[address] floor, [address] [place] [address], [facility] [phone] * Bilirubin direct (05/02/2024 1:23 PM CDT) Bilirubin Direct <0.20 0.00 - 0.30 mg/dL 05/02/2024 2:06 PM CDT LABORATORY Blood BLOOD SPECIMEN / Unknown Venipuncture / Unknown 05/02/2024 1:23 PM CDT 05/02/2024 1:40 PM CDT Enrique Cuba MD LAB - BLOOD ORDERABL ES LABORATORY [facility] [address], [address] [place] [address], [facility] [phone] * (ABNORMAL) Lipid Profile (01/12/2024 10:19 AM CDT) Cholesterol 208(H) <200 mg/dL 01/12/2024 10:47 AM CDT [facility] [place] Triglycerides 191(H) <150 mg/dL 01/12/2024 10:47 AM CDT [facility] - [facility]ORE LAB Direct Measure HDL 40(L) >=50 mg/dL 01/12/2024 10:47 AM CDT [facility] - [facility] LDL Cholesterol Calculated 130(H) <=100 mg/dL 01/12/2024 10:47 AM CDT [facility] - [facility] Non HDL Cholesterol 168(H) <130 mg/dL 01/12/2024 10:47 AM CDT [facility] - [facility]ORE LAB Patient Fasting > 8hrs? No 01/12/2024 10:47 AM CDT [facility] - [facility]ORE LAB Blood STRUCTURE OF RIGHT UPPER LIMB / Unknown Venipuncture / Unknown 01/12/2024 10:19 AM CDT 01/12/2024 10:19 AM CDT Narrative [facility] - [place] - 01/12/2024 10:47 [...] Fu MD LAB - BLOO D ORDERABLES [facility] - CORE LAB [facility] [place] [address] [facility] 1st [place] [address] * DEXA,BONE DENSITY,AXIAL SKELETON (10/12/2007) Anatomical Region Laterality Modality Bone Mineral Den sity Impressions 10/12/2007 BONE DENSITOMETRY [facility] [address] [address] 10/12/2007 Patient: ??Catarina De Chart: [id number] : ??1950 Age: ??56 year old Sex: ??female Referring provider: ??EDGAR JACK Procedure: ??Bone density scanning was performed using DEXA technology performed on a [employer] scanner. ??Reporting is completed in the form of a T-score. ?? The T-score represents the standard deviation from peak bone mass based on a young healthy adult. Magnetic Doctor performing scan: ??Gianna Lawson Reference T-Scores: ? [...] Indicated MRSA Comment: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 Source: [employer]. 05/14/2016 Advance Directives For more information, please contact: [phone] * Full Code (Latest Code Status on File) Date Activated Date Inactivated Comments 05/02/2024 9:08 PM 05/06/2024 6:20 PM All basic and advanced life-sustaining interventions are performed as appropriate Question Answer Comments Code status determined by: Discussion with patie nt/ legal decision maker Care Teams Warp Tier Relationship Specialty Start Date End Date Ashli Howell MD [facility] [address] [place] [address] PCP - General Family Medicine 05/06/24 Lissa White PA-C [address] [place] [address] Physician Ad Operations Intern Endocrinology, Diabetes, and Metabolism 01/05/24 Eriberto Romano MD [address] [facility] 195 [place] [address] Colon & Rectal 01/18/24 William Spain MD [address] [facility] [address] [facility] [address] [place] [address] Assigned Nephrology Provider 01/26/24 Aroldo Wells MD [address] [place] [address] Gastroenterology 05/12/24 Georgette Velez MD [address] [place] [address] Nephrology 05/26/24
--- OUTSIDE RECORDS SUMMARY | 2024-06-27 22:32 | XMS_ITS | Encounter Summary ---
Author Organization [place] Address [address] [place] [address] Care Team Providers Care Revenue Cycle Administrator Name Role Phone Lissa White PA-C Unavailable Eriberto Romano MD Unavailable [phone] William Spain MD Unavailable [phone] Ashli Howell MD Primary Care Provider Aroldo Kimbrough MD Unavailable Georgette Velze MD Unavailable [phone] Reason for Referral * (Routine: Next available opening) - Pending Review Specialty Diagnoses / Procedures Referred By Beata pickett Referred To Contact Diagnoses Kidney transplanted Aftercare following organ transplant Procedures Adult Solid Organ Transplant Follow-Up Georgette Velez MD [address] [place] [address] Georgette Velez MD [address] [place] [address] Referral ID Status Reason Start Date Expiration Date V isits Requested Visits Authorized [id number] Pending Review 05/26/2024 05/26/2025 1 1 Encounter Details Date Type Department Care Team (Late st Contact Info) Description 05/26/2024 [facility] [address] [place] [phone] Scarlet Cruz RN Kidney transplanted (Primary Dx); Aftercare following organ transplant Social History Tobacco Use Types Packs/Day Years [...] Upcoming Encounters Date Type Department Care Team ([facility] st Contact Info) Description 07/18/2024 PRE VISIT [facility] [address] [phone] Eriberto Romano MD [address] [place] [address] Previsit 07/18/2024 11:00 AM CDT Office Visit [facility] [address] [phone] Kylee Fu MD [address] [place] [address] [address] [place] [address] Eriberto Romano MD [address] [place] [address] 08/19/2024 1:05 PM HIGH [employer]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 Source: [employer]. 05/14/2016 documented as of this encounter Care Teams Revenue Cycle Administrator Relationship Specialty Start Date End Date Ashli Howell MD [facility] [address] [place] [address] PCP - General Family Medicine 05/06/24 Lissa White PA-C [address] [place], [place] [address] Physician Sales Specialist Endocrinology, Diabetes, and Metabolism 01/05/24 Eriberto Romano MD 420 [facility] [address] [place], [place] [address] Colon & Rectal 01/18/24 William Spain MD 717 [facility] 353 [facility] [address] [place], [place] [address] Assigned Nephrology Provider 01/26/24 Aroldo Kimbrough MD [address] [place], [place] [address] Gastroenterology 05/12/24 Georgette Velez MD [address] [place], [place] [address] Nephrology 05/26/24 documented as of this encounter
--- OUTSIDE RECORDS SUMMARY | 2024-06-27 22:32 | XMS_ITS | Encounter Summary ---
Author Organization [place] Address [address] [place] [address] Care Team Providers Care Extrusion Process Operator Name Role Phone Lissa White PA-C Unavailable Eriberto Romano MD Unavailable [phone] William Spain MD Unavailable [phone] Ashli Howell MD Primary Care Provider + [phone] Aroldo Kimbrough MD Unavailable Georgette Velez MD Unavailable [phone] Encounter Details Date Type Department Care Team (Late st Contact Info) Description 05/23/2024 MyC Medical Advice [facility] Transplant Clinic [address] [place] [address] [facility] Social History Tobacco Use Types Packs/Day [...] Department Care Team (Late Contact Info) Description 07/18/2024 PRE VISIT [facility] [address] [phone] Eriberto Romano MD [address] [address] Previsit 07/18/2024 11:00 AM CDT Office Visit [facility] [address] [phone] Kylee Fu MD 6 [facility] 2[address] [place], [place] [address] Eriberto Romano MD [address] [place] [address] 08/19/2024 1:05 PM TELEVISION PRODUCTION CLERK Office Visit [facility] Transplant Clinic [address] [place] [phone] Georgette Velez MD [address] [place], [place] [address] documented as of this encounter Visit Diagnoses Not on filedocumented in this encounter Additional Health Concerns Infection Onset Date Last Indicated Resolved Time MRSA Comment: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 Source: [employer]. 05/14/2016 documented as of this encounter Care Teams Extrusion Process Operator Relationship Specialty Start Date End Date Ashli Howell MD [facility] [address] [place] [address] PCP - General Family Medicine 05/06/24 Lissa White PA-C [address] [place], [place] [phone] Physician Vinyl Top Installer Endocrinology, Diabetes, and Metabolism 01/05/24 Eriberto Romano MD 420 [facility] 195 [place], [place] [address] Colon & Rectal 01/18/24 William Spain MD 717 [facility] 353 [facility] [address] [place], [place] [address] Assigned Nephrology Provider 01/26/24 Aroldo Kimbrough MD [address] [place], [place] [address] Gastroenterology 05/12/24 Georgette Velez MD [address] [place], [place] [address] Nephrology 05/26/24 documented as of this encounter
--- OUTSIDE RECORDS SUMMARY | 2024-06-27 22:32 | XMS_ITS | Encounter Summary ---
Author Organization [facility] Address [address] [place] [address] Care Team Providers Care Line Repairer Name Role Phone Lissa White PA-C Unavailable Eriberto Romano MD Unavailable [phone] William Spain MD Unavailable [phone] Ashli Howell MD Primary Care Provider + [phone] Aroldo Kimbrough MD Unavailable Georgette Velez MD Unavailable [phone] Reason for Visit * Auth/Cert (Routine) Specialty Diagnoses / Procedures Referred By Beata pickett Referred To Contact Gastroenterology Diagnoses Dilated bile duct Pancreatic duct dilated Diverticulitis Dilated bile duct [K83.8] Pancreatic duct dilated [K86.89] Diverticulitis [K57.92] Procedures TX COLONOSCOPY W/WO BRUSH/WASH ENDOSCOPIC ULTRASOUND, ESOPHAGOSCOPY / UPPER GASTROINTESTINAL TRACT (GI) Colonoscopy Endoscopy [address] [phone] Referral ID Status Reason Start Date Expiration Date Visits Re quested Visits Authorized [id number] 1 1 Encounter Details Date Type Department Care Team (Late st Contact Info) Description 06/16/2024 2:31 PM CDT Anesthesia Event [facility] Endoscopy [address] [phone] Nicko Andrea MD [facility] ANESTHESIOLOGIS [address] [address] Kristi Smith APRN FINANCIAL SERVICES SPECIALIST [address] [id number] Anesthesia Record Procedure Summary Procedure Name Responsible Anesthesiologist Anesthesia Start Time Anesthesia Stop Time ENDOSCOPIC ULTRASOUND, ESOPHAGOSCOPY / UPPER GASTROINTESTINAL TRACT (GI) (Esophagus) Nicko Andrea MD 06/16/24 1431 06/16/24 1508 Events Date Time Event Comment 06/16/2024 1407 1431 An Start Anesthesia Star t is defined as when the anesthesia provider assumed care, began anesthesia prep, remained continuously present with the patient, and excludes all time for performing the pre-anesthesia evaluation. The Pre-Anesthesia Evaluation was completed before Anesthesia Start. 1431 AN REASSESS I attest that I have identified and re-evaluated the patient immediately before the induction of anesthesia and I am satisfied that the anesthetic plan is suitable for the patient's condition and procedure. The first vital signs recorded are pre- induction. Kristi Smith APRN FINANCIAL SERVICES SPECIALIST 1432 An Start Data 1433 Quick Note EtCO2 monitorin g in place on spontaneously breathing patient, numerical value not necessarily accurate and monitored for waveform and trends 1436 Anesthesia Ready for Procedu re 1508 an stop data 1508 An Stop Electronically signed by Ayse Garcia APRN CRNA on June 16, 2024 3:08 PM Meds Name Total lidocaine 2% 80 mg propofol 10 mg/mL 244.53 mg phenylephrine (QUINTIN-SYNEPHRINE) injection 150 mcg ondansetron 2 mg/mL 4 mg LR 500 mL * Agents Name O2 N2O Air Exp Sevoflurane Exp Isoflurane Exp Desflurane O2 Delivery Device Ins Sevoflurane Ins Isoflurane Ins Desflurane O2 Auxiliary * Blood No blood administrations on file. Lines, Drains, and Airways Type Details Placement Removal Peripheral IV 06/16/24; 1426; 20 G ; BD; Left; Antecubital fossa; Chlorhexidine; 1; Tolerated well 06/16/24 1426 by Gamaliel Roblero RN 06/16/24 1545 by Sharyn Ball RN documented in this encounter Social History Tobacco [...] PM CDT documented as of this encounter OR Notes * Anesthesia Postprocedure Evaluation - Nicko Andrea MD - 06/16/2024 4:06 PM CDT Patient: Catarina Almeida Procedure: Procedure(s): ENDOSCOPIC ULTRASOUND, ESOPHAGOSCOPY / UPPER GASTROINTESTINAL TRACT (GI) Colonoscopy Anesthesia Type: MAC Note: Disposition: Outpatient Postop Pain Control: Uneventful Sign Out: Well controlled pain PONV: No Neuro/Psych: Uneventful Sign Out: Acceptable/Baseline neuro status Airway/Respiratory: Uneventful Sign Out: Acceptable/Baseline resp. status CV/Hemodynamics: Uneventful Sign Out: Acceptable CV status; No obvious hypovolemia; No obvious fluid overload Other NRE: NONE DID A NON-ROUTINE EVENT OCCUR? No Last vitals: Vitals Value Taken Time BP 114/70 06/16/24 1530 Temp Pulse 77 06/16/24 1530 Resp 26 06/16/24 1522 SpO2 95 % 06/16/24 1534 Vitals shown include unfiled device data. Electronically Signed By: NICKO ANDREA MD June 16, 2024 4:06 PM * Anesthesia Preprocedure Evaluation - Nicko Andrea MD - 06/16/2024 1:59 PM CDT Anesthesia Pre-Procedure Evaluation Patient: Catarina Almeida : 1950 Procedure : Procedure(s): ENDOSCOPIC ULTRASOUND, ESOPHAGOSCOPY / UPPER GASTROINTESTINAL TRACT (GI) Colonoscopy Past Medical History: Diagnosis Date Benign essential hypertension CHRONIC AIRWAY OBSTRUCTION Diabetes mellitus, type 2 (H) Diverticulitis of colon Genital herpes, unspecified HEPATITIS C LUMB/LUMBOSAC DISC DISEASE L and C spine Pyelonephritis S/P kidney transplant S/P liver transplant (H) Unspecified hypothyroidism Past Surgical History: Procedure Laterality Date IR PARACENTESIS 08/01/2015 IR PARACENTESIS 10/19/2016 IR PARACENTESIS 08/28/2015 IR PARACENTESIS 11/16/2015 IR PARACENTESIS 11/19/2015 IR PARACENTESIS 11/30/2015 IR PARACENTESIS 10/07/2016 LIVER TRANSPLANTATION 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, s/p OLT 12/30/2016 TX TRANSPLANTATION OF KIDNEY ZZC APPENDECTOMY No Known Allergies Social History Tobacco Use Smoking status: Never Smokeless tobacco: Never Tobacco comments: second hand smoke Substance Use Topics Alcohol use: Yes Comment: rare Wt Readings from Last 1 Encounters: 05/17/24 57.2 kg (126 lb 3.2 oz) Anesthesia Evaluation ROS/MED HX ENT/Pulmonary: (-) sleep apnea Neurologic: Cardiovascular: (+) hypertension- - - - - METS/Exercise Tolerance: Hematologic: Musculoskeletal: GI/Hepatic: Comment: Hx liver transplant; (+) hepatitis type C, liver disease, (-) GERD Renal/Genitourinary: (+) renal disease, type: CRI, Pt has history of transplant, Endo: (+) type II DM, Psychiatric/Substance Use: Infectious Disease: Malignancy: Other: Physical Exam Airway Mallampati: II TM distance: > 3 FB Neck ROM: full Mouth opening: > 3 cm Respiratory Devices and Support Dental (+) Removable bridges or other hardware Cardiovascular cardiovascular exam normal Pulmonary pulmonary exam normal OUTSIDE LABS: CBC: Lab Results Component Value Date WBC 9.5 05/17/2024 WBC 8.7 05/06/2024 HGB 13.0 05/17/2024 HGB 11.8 05/06/2024 HCT 40.8 05/17/2024 HCT 37.3 05/06/2024 PLT 229 05/17/2024 PLT 277 05/06/2024 BMP: Lab Results Component Value Date NA 141 05/17/2024 NA 140 05/06/2024 POTASSIUM 4.0 05/17/2024 POTASSIUM 3.6 05/06/2024 CHLORIDE 108 (H) 05/17/2024 CHLORIDE 109 (H) 05/06/2024 CO2 23 05/17/2024 CO2 22 05/06/2024 BUN 14.2 05/17/2024 BUN 9.8 05/06/2024 CR 1.21 (H) 05/17/2024 CR 1.30 (H) 05/06/2024 GLC 101 (H) 05/17/2024 GLC 131 (H) 05/06/2024 COAGS: Lab Results Component Value Date INR 0.88 05/17/2024 POC: No results found for: BGM, HCG, HCGS HEPATIC: Lab Results Component Value Date ALBUMIN 4.4 05/17/2024 PROTTOTAL 6.9 05/17/2024 ALT 7 05/17/2024 AST 16 05/17/2024 ALKPHOS 55 05/17/2024 BILITOTAL 0.2 05/17/2024 OTHER: Lab Results Component Value Date LACT 0.6 (L) 05/02/2024 A1C 6.1 (H) 05/02/2024 MIMI 9.7 05/17/2024 PHOS 3.5 07/09/2023 MAG 2.1 05/03/2024 LIPASE 21 05/04/2024 TSH 4.64 (H) 05/02/2024 T4 1.39 05/02/2024 Anesthesia Plan ASA Status: 3 NPO Status: NPO Appropriate Anesthesia Type: MAC. Consents Anesthesia Plan(s) and associated risks, benefits, and realistic alternatives discussed. Questions answered and patient/customer relations representative(s) expressed understanding. - Discussed: - Discussed with: Patient Postoperative Care PONV prophylaxis: Ondansetron (or other 5HT-3) Comments: NICKO ANDREA MD I have reviewed the pertinent notes and labs in the chart from the past 30 days and (re)examined the patient. Any updates or changes from those notes are reflected in this note. documented in this encounter Miscellaneous Notes * Anesthesia Care Transfer Note - Ayse Garcia APRN FINANCIAL SERVICES SPECIALIST - 06/16/2024 3:08 PM CDT Patient: Catarina Almeida Procedure: Procedure(s): ENDOSCOPIC ULTRASOUND, ESOPHAGOSCOPY / UPPER GASTROINTESTINAL TRACT (GI) Colonoscopy Diagnosis: Dilated bile duct [K83.8] Pancreatic duct dilated [K86.89] Diverticulitis [K57.92] Diagnosis Additional Information: No value filed. Anesthesia Type: MAC Note: Oropharynx: oropharynx clear of all foreign objects Level of Consciousness: drowsy Oxygen Supplementation: face mask Independent Airway: airway patency satisfactory and stable Dentition: dentition unchanged Vital Signs Stable: post-procedure vital signs reviewed and stable Report to RN Given: handoff report given Destination: endo #37. Vitals: Vitals Value Taken Time BP Temp Pulse 79 06/16/24 1507 Resp 19 06/16/24 1507 SpO2 90 % 06/16/24 1507 Vitals shown include unfiled device data. Electronically Signed By: Ayse Garcia APRN CRNA June 16, 2024 3:08 PM documented in this encounter Plan of Treatment Upcoming Encounters Date Type Department Care Team (Late st Contact Info) Description 07/18/2024 PRE VISIT [facility] [address] [phone] Eriberto Romano MD [address] [place] [id number] Previsit 07/18/2024 11:00 AM CDT Office Visit [facility] [address] [phone] Kylee Fu MD [address] [place] [address] [address] [place] [address] Eriberto Romano MD [address] [place] [address] 08/19/2024 1:05 PM FOUNDATION RELATIONS MANAGER Office Visit [facility] Transplant Clinic [address] [place] [phone] Georgette Velez MD [address] [facility] [place] [address] documented as of this encounter Visit Diagnoses Not on filedocumented in this encounter Administered Medications Inactive Administered Medications - up to 3 most recent administrations Medication Order MAR Action Action Date Dose Rate Site lactated ringers infusion Intravenous, CONTINUOUS PRN, Anesthesia Intra-op, Starting on Camille 06/16/24 at 1433, Until Camille 06/16/24 at 1508 $New Bag 06/16/2024 2:33 PM CDT lidocaine 2% injection (MDV) Intravenous, PRN, Starting on Camille 06/16/24 at 1434, Anesthesia Intra-op $Given 06/16/2024 2:34 PM CDT 80 mg ondansetron (ZOFRAN) injection Intravenous, PRN, Administer over 2-5 Minutes, Starting on Camille 06/16/24 at 1435, Anesthesia Intra-op $Given 06/16/2024 2:35 PM CDT 4 mg phenylephrine (QUINTIN-SYNEPHRINE) injection Intravenous, CONTINUOUS PRN, Starting on Camille 06/16/24 at 1453, Anesthesia Intra-op $New Bag 06/16/2024 2:53 PM CDT 150 mcg propofol (DIPRIVAN) injection 10 mg/mL vial Intravenous, CONTINUOUS PRN, Starting on Camille 06/16/24 at 1434, Anesthesia Intra-op Rate/Dose Change 06/16/2024 2:58 PM CDT 75 mcg/kg/min 25.74 mL/hr Rate/Dose Change 06/16/2024 2:43 PM CDT 150 mcg/kg/min 51. 48 mL/hr $New Bag 06/16/2024 2:34 PM CDT 200 mcg/kg/min 68.64 mL/ hr documented in this encounter Additional Health Concerns Infection Onset Date Last Indicated Resolved Time MRSA Comment: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 Source: [place]. 05/14/2016 documented as of this encounter Care Teams Line Repairer Relationship Specialty Start Date End Date Ashli Howlel MD [facility] [address] [place] [address] PCP - General Family Medicine 05/06/24 Lissa White PA-C [address] [place] [address] Physician Corporate Representative Endocrinology, Diabetes, and Metabolism 01/05/24 Eriberto Romano MD [address] [facility] [address] [place] [address] Colon & Rectal 01/18/24 William Spain MD [address] [facility] [address] [facility] [address] [place] [address] Assigned Nephrology Provider 01/26/24 Aroldo Kimbrough MD [address] [place] [address] Gastroenterology 05/12/24 Georgette Velez MD [address] [place], [place] [phone] Nephrology 05/26/24 documented as of this encounter
--- OUTSIDE RECORDS SUMMARY | 2024-06-27 22:33 | XMS_ITS | Encounter Summary ---
Author Organization [facility] Address [address] [place] [address] Care Team Providers Care Direct Sales Representative Name Role Phone Lissa White PA-C Unavailable Eriberto Romano MD Unavailable [phone] William Spain MD Unavailable [phone] Ashli Howell MD Primary Care Provider + [phone] Aroldo Kimbrough MD Unavailable Encounter Details Date Type Department Care Team (Late st Contact Info) Description 05/17/2024 10:15 AM CDT [address] [phone] Liver transplanted (H); Aftercare following organ transplant; Encounter for long-term current use of medication; Kidney replaced by transplant; Liver replaced by transplant (H); Kidney transplanted; Immunosuppressed status (H24); Encounter for long-term (current) use of high-risk medication Social History Tobacco Use Types Packs/Day Years [...] st Contact Info) Description 07/18/2024 PRE VISIT [facility] [address] [phone] Eriberto Romano MD [address] [phone] Previsit 07/18/2024 11:00 AM CDT Office Visit [facility] [address] [place] [phone] Kylee Fu MD [address] [place] [address] [address] [place], [place] [address] Eriberto Romano MD [address] [id number] 08/19/2024 1:05 PM ROOM SERVICE FOOD SERVER Office Visit [facility] Transplant Clinic [address] [place] [phone] Georgette Velez MD [address] [place], [place] [phone] documented as of this encounter Procedures Procedure Name Priority Date/Time Associated Diagnosis Comments ROUTINE UA WITH MICROSCOPIC REFLEX TO CULTURE Routine 05/17/2024 10:52 AM CDT Liver transplanted (H) ANIL URRUTIA VIRUS QUANTITATIVE PCR, PLASMA Routine 05/17/2024 10:27 [...] Liver transplanted (H) HEPATIC FUNCTION PANEL Routine 05/17/2024 10:27 AM CDT Liver transplanted (H) CMV QUANTITATIVE, PCR Routine 05/17/2024 10:27 AM CDT Kidney transplanted Immunosuppressed status (H24) Aftercare following organ transplant Encounter for long-term (current) use of high-risk medication BASIC METABOLIC PANEL STAT 05/17/2024 10:27 AM CDT Liver transplanted (H) CBC WITH PLATELETS STAT 05/17/2024 10 :27 AM CDT Liver transplanted (H) documented in this encounter Results * UA with Microscopic reflex to Culture (05/17/2024 10:52 AM CDT) Color Urine Light Yellow Colorless, Straw, Light Yellow, Yellow 05/17/2024 10:59 AM CDT [facility] Appearance Urine Clear Clear 05/17/20 24 10:59 AM CDT [facility] Glucose Urine Negative Negative mg/dL 05/17/2024 10:59 AM T [facility] Bilirubin Urine Negative Negative 10:59 AM CDT [facility] Ketones Urine Negative Negative mg/dL 05/17/2024 10:59 AM CDT [facility] Specific [place] Urine 1.014 1.003 - 1.035 05/17/2024 10:59 AM T [facility] Blood Urine Negative Negative 05/17/2024 10:59 AM T [facility] pH Urine 6.0 5.0 - 7.0 05/17/2024 10:59 AM T [facility] Protein Albumin Urine Negative Negative mg/dL 05/17/2024 10:59 AM T [facility] Urobilinogen Urine Normal Normal, 2.0 mg/dL 05/17/2024 10:59 AM CDT [facility] Nitrite Urine Negative Negative 05/17/2024 10:59 AM CDT [facility] Leukocyte Esterase Urine Negative Negative 05/17/2024 10:59 AM CDT [facility] RBC Urine <1 <=2 /HPF 05/17/2024 10:59 AM CDT [facility] WBC Urine 2 <=5 /HPF 05/17/2024 10:59 AM CDT [facility] Squamous Epithelials Urine 1 <=1 /HPF 05/17/2024 10:59 AM CDT [facility] Urine MID-STREAM URINE SPECIMEN / Unknown Non-blood Collection / Unknown 05/17/2024 10:52 AM CDT 05/17/2024 10:53 AM CDT Narrative [facility] - 05/17/2024 10:59 AM CDT Urine Culture not indicated Kylee Fu MD LAB - URIN E ORDERABLES Performing Organization Address City/[facility]/ZIP Co de Phone Number [facility] [address] 1st [place] [address] * INR (05/17/2024 10:27 AM CDT) Pathologist [facility] [place] INR 0.88 0.85 - 1.15 05/17/2024 10:42 AM CDT [facility] Blood STRUCTURE OF LEFT UPPER LIMB / Unknown Venipuncture / Unknown 05/17/2024 10:27 AM CDT 05/17/2024 10:27 AM CDT Kylee Fu MD LAB - BLOO D ORDERABLES Performing Organization Address [facility]/ZIP Co de Phone Number [facility] [address] [place] [address] * (ABNORMAL) T cell subset profile (05/17/2024 10:27 AM CDT) CD3% Total T Cells 94(H) 49 - 84 % 05/17/2024 2:51 PM CDT [facility]OW CYTOMET[facility] Absolute CD3, Total T Cells 1,936 603 - 2,990 cells/uL 05/17/2024 2:51 PM CDT [facility] FL[facility] CYTOMET[facility] CD4% [place] T Cells 35 28 - 63 % 05/17/2024 2:51 PM CDT [facility] FLOW CYTOMETRY Absolute CD4, [place] T Cells 720 441 - 2,156 cells/uL [...] Spain MD LAB - BLOOD GA AMARAL [facility] FLOW CYTOMETRY UM Flow Cytometry [address] [facility], [address] [phone] * Anil Urrutia Virus Quantitative PCR, Plasma (05/17/2024 10:27 AM [...] MICRO GENE RAL ORDERABLES [facility] Inf. Diseases Diag. Lab [address] [facility], [address] [place] [phone] * CMV Quantitative, PCR (Blood) (05/17/2024 10:27 AM CDT) Pathologist [facility] [place] CMV DNA IU/mL Not Detected Not Detected [...] only. The Infectious Diseases Diagnostic Laboratory at [facility] has validated the performance characteristics of the kendrick?? CMV assay for plasma and urine. William Spain MD LAB - MICRO GENE RAL ORDERABLES [facility] Inf. Diseases Diag. Lab [address] [facility], [address] [place] [phone] * Tacrolimus by Tandem Mass Spectrometry (05/17/2024 10:27 AM CDT) [facility] Tacrolimus by Tandem Mass Spectrometry 6.4 5.0 - 15.0 ug/L 05/17/2024 2:26 PM CDT [facility] Comment: Tacrolimus Reference Range (ug/L): [...] and its performance characteristics determined by the [facility], ??Special Chemistry Laboratory. It has not been cleared or approved by the FDA. The laboratory is regulated under CLIA as qualified to perform high-complexity testing. This test is used for clinical purposes. It should not be regarded as investigational or for research. Kylee Fu MD LAB - BLOO D ORDERABLES [facility] [address] [facility], [address] [phone] * (ABNORMAL) CBC with platelets (05/17/2024 10:27 AM CDT) [facility] WBC Count 9.5 4.0 - 11.0 10e3/uL 05/17/2024 10:33 AM CDT [facility] RBC Count 5.03 3.80 - 5.20 10e6/uL 05/17/2024 10:33 AM CDT [facility] Hemoglobin 13.0 11.7 - 15.7 g/dL 05/17/2024 10:33 AM CDT [facility] Hematocrit 40.8 35.0 - 47.0 % 05/17/2024 10:33 AM CDT [facility] MCV 81 78 - 100 fL 05/17/2024 10:33 AM CDT [facility] MCH 25.8(L) 26.5 - 33.0 pg 05/17/2024 10:33 AM CDT [facility] MCHC 31.9 31.5 - 36.5 g/dL 05/17/2024 10:33 AM CDT [facility] RDW 15.0 10.0 - 15.0 % 05/17/2024 10:33 AM CDT [facility] Platelet Count 229 150 - 450 10e3/uL 05/17/2024 10:33 AM CDT [facility] Blood STRUCTURE OF LEFT UPPER LIMB / Unknown Venipuncture / Unknown 05/17/2024 10:27 AM CDT 05/17/2024 10:27 AM CDT Kylee Fu MD LAB - BLOO D ORDERABLES [facility] [address] [facility] 1st [place] [address] * (ABNORMAL) Basic metabolic panel (05/17/2024 10:27 AM CDT) Sodium 141 135 - 145 mmol/L 05/17/2024 10:56 AM CDT [facility] Potassium 4.0 3.4 - 5.3 mmol/L 05/17/2024 10:56 AM CDT [facility] Chloride 108(H) 98 - 107 mmol/L 05/17/2024 10:56 AM CDT [facility] Carbon Dioxide (CO2) 23 22 - 29 mmol/L 05/17/2024 10:56 AM CDT [facility] Anion Gap 10 7 - 15 mmol/L 05/17/2024 10:56 AM CDT [facility] Urea Nitrogen 14.2 8.0 - 23.0 mg/dL 05/17/2024 10:56 AM CDT [facility] Creatinine 1.21(H) 0.51 - 0.95 mg/dL 05/17/2024 10:56 AM CDT [facility] GFR Estimate 48(L) >60 mL/min/1.7 3m2 05/17/2024 10:56 AM CDT [facility] Comment:eGFR calculated usin 2020 CKD-EPI equation. Calcium 9.7 8.8 - 10.4 mg/dL 05/17/2024 10:56 AM CDT [facility] Comment:Reference intervals for this test were updated on 04/19/2024 to reflect our healthy population more accurately. There may be differences in the flagging of prior results with similar values performed with this method. Those prior results can be interpreted in the context of the updated reference intervals. Glucose 101(H) 70 - 99 mg/dL 05/17/2024 10:56 AM CDT [facility] Blood STRUCTURE OF LEFT UPPER LIMB / Unknown Venipuncture / Unknown 05/17/2024 10:27 AM CDT 05/17/2024 10:27 AM CDT Kylee Fu MD LAB - BLOO D ORDERABLES Performing Organization Address [facility] Co de Phone Number [facility] [address] [place] [address] * Hepatic function panel (05/17/2024 10:27 AM CDT) [facility] Protein Total 6.9 6.4 - 8.3 g/dL 05/17/2024 10:56 AM CDT [facility] Albumin 4.4 3.5 - 5.2 g/dL 05/17/2024 10:56 AM CDT [facility] Bilirubin Total 0.2 <=1.2 mg/dL 05/17/2024 10:56 AM CDT [facility] Alkaline Phosphatase 55 40 - 150 U/L 05/17/2024 10:56 AM CDT [facility] AST 16 0 - 45 U/L 05/17/2024 10:56 AM CDT [facility] ALT 7 0 - 50 U/L 05/17/2024 10:56 AM CDT [facility] Bilirubin Direct <0.20 0.00 - 0.30 mg/dL 05/17/2024 10:56 AM CDT [facility] Blood STRUCTURE OF LEFT UPPER LIMB / Unknown Venipuncture / Unknown 05/17/2024 10:27 AM CDT 05/17/2024 10:27 AM CDT Kylee Fu MD LAB - BLOO D ORDERABLES Performing Organization Address [facility] Co de Phone Number [facility] [address] 1st [place] [address] documented in this encounter Visit Diagnoses Diagnosis Liver transplanted Liver replaced by transplant Aftercare following organ transplant Encounter for long-term current use of medication Kidney replaced by transplant Liver replaced by transplant Kidney transplanted Kidney replaced by transplant Immunosuppressed status (H24) Unspecified disorder of immune mechanism Encounter for long-term (current) use of high-risk medication Encounter for long-term (current) use of other medications documented in this encounter Additional Health Concerns Infection Onset Date Last Indicated Resolved Time MRSA Comment: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 Source: Directly. 05/14/2016 documented as of this encounter Care Teams Direct Sales Representative Relationship Specialty Start Date End Date Ashli Howell MD [facility] [address] [place] [address] PCP - General Family Medicine 05/06/24 Lissa White PA-C [address] [place], [place] [phone] Physician Web Content Coordinator Endocrinology, Diabetes, and Metabolism 01/05/24 Eriberto Romano MD 420 [facility] [address] [place], [place] [phone] Colon & Rectal 01/18/24 William Spain MD 717 [facility] 353 [facility] [address] [place], [place] [address] Assigned Nephrology Provider 01/26/24 Aroldo Kimbrough MD [address] [place], [place] [address] Gastroenterology 05/12/24 documented as of this encounter
--- OUTSIDE RECORDS SUMMARY | 2024-06-27 22:33 | XMS_ITS | Encounter Summary ---
Author Organization [facility] Address [address] [place] [address]. [place] [address] Care Team Providers Care Course Instructor Name Role Phone Lissa White PA-C Unavailable Eriberto Romano MD Unavailable [phone] William Spain MD Unavailable [phone] Ashli Howell MD Primary Care Provider + [phone] Aroldo Kimbrough MD Unavailable Reason for Visit * Reason Comments RECHECK Post liver transplan t 12/30/2016 Encounter Details Date Type Department Care Team (Late st Contact Info) Description 05/17/2024 9:30 AM CDT Office Visit [facility]ology [facility] [address] [address] Kylee Fu MD [address] [place], [place] [address] [address] [place], [place] [id number] Liver transplanted (H) Social History Tobacco Use Types Packs/Day [...] Sign Reading Time Taken Comments Blood Pressure 118/79 05/17/2024 9:22 AM CDT Pulse 94 05/17/2024 9:22 AM CDT Temperature 36.9 ??C (98.4 ??F) 05/17/2024 9:22 AM CD T Respiratory Rate 16 05/17/2024 9:22 AM CDT Oxygen Saturation 97% 05/17/2024 9:22 AM CDT Inhaled Oxygen Concentration - - Weight 57.2 kg (126 lb 3.2 oz) 05/17/2024 9:22 A M CDT Height 160 cm (5' 2.99) 05/17/2024 9:22 AM CDT Body Mass Index 22.36 05/17/2024 9:22 AM CDT documented in this encounter Progress Notes * Kylee Fu MD - 05/17/2024 9:30 AM CDT [facility]ANS[facility] FOLLOW UP A/P Ms. Almeida is a 73 Y F s/p SLK 12/30/16 at [facility] for HCV. Transferred her care to [facility] Fall 2022. Admitted 12/28-01/04/24 at [facility] for sigmoid diverticulitis with microperforation, and Cdiff and then just recently for weakness and lightheadedness of 2 weeks' duration, diagnosed with possible pyelo and and CBD and PD dilation. Today she is having L flank pain which has been occurring off and on for over a year. I am unclear if this is at all related to her recent issues (pyelo/question abscess on R, biliary dilatation, perforated sigmoid diverticulitis). I am sending her down for labs. She will need follow up imaging. CBD and panc duct dilatation Has EUS/ERCP scheduled with Dr. Kimbrough. Repeat labs today Pyelo on Augmentin for another few days. Labs today and UA. Will message Dr. Spain. Perforated diverticulitis s/p admission, managed conservatively. On antibiotics IV for another day.No pain and fever since discharge. Will need a colonoscopy: this is scheduled. Seeing Dr. Romano in July. Cdiff treated with vancomycin IS MMF tac and pred. No tac level for > 1y at time of transfer of care. Continue monitoring labsand IS level every 3 months to assess for appropriate dosing and side effects from IS including ASPEN, pancytopenia, hyperkalemia, hypomagnesemia. She has not routinely been getting labs. Graft function good from 2 weeks ago. Update today KT Messaged Dr. Spain DM on insulin. Intends to establish with an territory sales professional-- I do not see any visits. A1C 6.1. HCM She needs to establish with a PCP. Kylee Fu MD Hepatology/ Liver Transplant [facility] SUBJECTIVE Ms. Almeida is a 73 Y F s/p SLK 12/2016 at [facility] for HCV with a [id number] biliary reconstruction. She then moved to [place] and received care at [facility]. Last visit there was 02/2022. She then moved to [place] in 2022 and established care here Fall 2022. Since I last saw her in January. She had another admission (see below). Today she tells me she has had some intermittent L flank pain that can be severe/debilitating. It has been going on for over a year. It occurs randomly and can be severe enough that she cannot drive.She takes T3 to help with it. It occurs every few weeks or less. She is having pain today. Admissions --05/02-05/06/24 possible pyelonephritis and abscess involving transplanted kidney. Also noted was intra and extrahepatic bile duct and PD dilation as well as RUL pulmonary nodule MRCP showed intrahepatic and extrahepatic biliary ductal dilatation. Redemonstrated diffuse pancreatic ductal dilatation. No obstructing stone. 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 CT 05/02/24 1. Postsurgical changes of liver transplant. Worsening intrahepatic and extrahepatic biliary ductaldilatation. Increasing dilatation of the main pancreatic duct. [...] nodule measuring 3 mm. See recommendations below. MRI 05/02/24 1. Intrahepatic and extrahepatic biliary ductal dilatation. Redemonstrated diffuse pancreatic ductal dilatation. No obstructing stone. 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 Given abnormal liver function tests, ERCP should be considered in further evaluation. 2. Findings suspicious for a 2.2 cm abscess in the ventral aspect of the patient's right pelvic transplant kidney. --12/28-01/04/24 [facility] for sigmoid diverticulitis with microperforation and Cdiff. This was managed conservatively. 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 In 01/2018, admitted for polynephritis with UTI treated with abx HCV treated with Epclusa + RBV 400mg x 12 weeks (03/03/2017-05/26/2017) with SVR. EXPLANT: no records IS: Prograf 11/05, MMF 500 mg BID, pred 5mg. Tac level 05/04/24 6.3 LABS: Liver Function Studies - Recent Labs Lab Test 05/06/24 0836 PROTTOTAL 5.6* ALBUMIN 3.6 BILITOTAL 0.2 ALKPHOS 39* AST 16 ALT 7 CBC RESULTS: Recent Labs Lab Test 05/06/24 0836 WBC 8.7 RBC 4.59 HGB 11.8 HCT 37.3 MCV 81 MCH 25.7* MCHC 31.6 RDW 14.7 PLT 277 REJECTION: None. BILIARY ISSUES: None STENT: unknown KIDNEY FUNCTION: Creatinine Date Value Ref Range Status 05/06/2024 1.30 (H) 0.51 - 0.95 mg/dL Final 07/07/2008 [...] symptoms noted above in the HPI. Exam BP 118/79 (BP Location: Left arm, Patient Position: Sitting, Cuff Size: Adult Regular) Pulse 94 Temp 98.4 ??F (36.9 ??C) (Oral) Resp 16 Ht 1.6 m (5' 2.99) Wt 57.2 kg (126 lb 3.2 oz) PrA451% BMI 22.36 kg/m?? Gen Alert pleasant NAD Resp No difficulty breathing. No cough. Lungs clear CV RRR Abd soft NT ND L flank tender to palpation. No pain with percussion Skin No Jaundice Eyes No icterus Neuro JON MSK no muscle wasting Psyche Pleasant, appropriate. Well groomed. Time today in minutes 70 Record review 15 Communication with care team 15 Face to face with patient 25 Documentation 15 documented in this encounter Nursing Notes * Gale Gonsales CMA - 05/17/2024 9:30 AM CDT Chief Complaint Patient presents with RECHECK Post liver transplant 12/30/2016 Vital signs: Temp: 98.4 ??F (36.9 ??C) Temp src: Oral BP: 118/79 Pulse: 94 Resp: 16 SpO2: 97 % Height: 160 cm (5' 2.99) Weight: 57.2 kg (126 lb 3.2 oz) Estimated body mass index is 22.36 kg/m?? as calculated from the following: Height as of this encounter: 1.6 m (5' 2.99). Weight as of this encounter: 57.2 kg (126 lb 3.2 oz). Gale Gonsales CMA 05/17/2024 9:24 AM documented in this encounter Plan of Treatment Upcoming Encounters Date Type Department Care Team (Late st Contact Info) Description 07/18/2024 PRE VISIT [facility] Surgery [facility] [address] [place] [phone] Eriberto Romano MD [address] [address] Previsit 07/18/2024 11:00 AM CDT Office Visit [facility] [address] [phone] Kylee Fu MD [address] [place], [place] [address] [address] [place], [place] [address] Eriberto Romano MD [address] 3[address] 08/19/2024 1:05 PM BLANKET MAKER Office Visit [facility] Transplant Clinic [address] [place] [phone] Georgette Velez MD 500 [place], [place] [address] documented as of this encounter Results * UA with Microscopic reflex to Culture (05/17/2024 10:52 AM CDT) Color Urine Light Yellow Colorless, Straw, Light Yellow, Yellow 05/17/2024 10:59 AM CDT [facility] Appearance Urine Clear Clear 05/17/20 10:59 AM CDT [facility] Glucose Urine Negative Negative mg/dL 05/17/2024 10:59 AM CDT [facility] Bilirubin Urine Negative Negative 10:59 AM CDT [facility] Ketones Urine Negative Negative mg/dL 05/17/2024 10:59 AM CDT [facility] Specific [place] Urine 1.014 1.003 - 1.035 05/17/2024 10:59 AM CDT [facility] Blood Urine Negative Negative 05/17/2024 10:59 AM CDT [facility] pH Urine 6.0 5.0 - 7.0 05/17/2024 10:59 AM CDT [facility] Protein Albumin Urine Negative Negative mg/dL 05/17/2024 10:59 AM CDT [facility] Urobilinogen Urine Normal Normal, 2.0 mg/dL 05/17/2024 10:59 AM CDT [facility] Nitrite Urine Negative Negative 05/17/2024 10:59 AM CDT [facility] Leukocyte Esterase Urine Negative Negative 05/17/2024 10:59 AM CDT [facility] RBC Urine <1 <=2 /HPF 05/17/2024 10:59 AM CDT [facility] WBC Urine 2 <=5 /HPF 05/17/2024 10:59 AM CDT [facility] Squamous Epithelials Urine 1 <=1 /HPF 05/17/2024 10:59 AM CDT [facility] Urine MID-STREAM URINE SPECIMEN / Unknown Non-blood Collection / Unknown 05/17/2024 10:52 AM CDT 05/17/2024 10:53 AM CDT Narrative [facility] - 05/17/2024 10:59 AM CDT Urine Culture not indicated Kylee Fu MD LAB - URIN E ORDERABLES Performing Organization Address [facility] Co de Phone Number [facility] [address] [place] [address] * INR (05/17/2024 10:27 AM CDT) INR 0.88 0.85 - 1.15 05/17/2024 10:42 AM CDT [facility] Blood STRUCTURE OF LEFT UPPER LIMB / Unknown Venipuncture / Unknown 05/17/2024 10:27 AM CDT 05/17/2024 10:27 AM CDT Kylee Fu MD LAB - BLOO D ORDERABLES Performing Organization Address City/[facility]/ZIP Co de Phone Number [facility] [address] [place] [address] documented in this encounter Visit Diagnoses Diagnosis Liver transplanted Liver replaced by transplant documented in this encounter Additional Health Concerns Infection Onset Date Last Indicated Resolved Time MRSA Comment: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 Source: [employer]. 05/14/2016 documented as of this encounter Care Teams Course Instructor Relationship Specialty Start Date End Date Ashli Howell MD [facility] [address] [place] [address] PCP - General Family Medicine 05/06/24 Lissa White PA-C [address] [place] [address] Physician Cash Register Repairer Endocrinology, Diabetes, and Metabolism 01/05/24 Eriberto Romano MD 420 [facility] 195 [place] [address] Colon & Rectal 01/18/24 William Spain MD 717 [facility] 353 [facility] 1932 [place] [address] Assigned Nephrology Provider 01/26/24 Aroldo Kimbrough MD 909 [place] [address] Gastroenterology 05/12/24 documented as of this encounter
--- OUTSIDE RECORDS SUMMARY | 2024-06-27 22:33 | XMS_ITS | Encounter Summary ---
Author Organization [facility] Address [address] [place] [address] Care Team Providers Care Ophthalmologist Name Role Phone Lissa White PA-C Unavailable Eriberto Romano MD Unavailable [phone] William Spain MD Unavailable [phone] Ashli Howell MD Primary Care Provider + [phone] Aroldo Kimbrough MD Unavailable Encounter Details Date Type Department Care Team (Latest Contact Info) Description 05/12/2024 Prep for Procedure [facility] [address] [place] [address] Maria Guadalupe Conner, RN Dilated bile duct (Primary Dx); Pancreatic duct dilated Social History Tobacco Use Types Packs/Day Years [...] st Contact Info) Description 07/18/2024 PRE VISIT [facility] [address] [phone] Eriberto Romano MD [address] 5[address] Previsit 07/18/2024 11:00 AM CDT Office Visit [facility] [address] [phone] Kylee Fu MD 6 [facility] [address] [place], [place] [address] Eriberto Romano MD [address] [address] 08/19/2024 1:05 PM TELETYPESETTER Office Visit [facility] Trans[facility] [address] [place] [phone] Georgette Velez MD 500 [place], [place] [address] documented as of this encounter Visit Diagnoses Diagnosis Dilated bile duct- Primary Other specified disorders of biliary tract Pancreatic duct dilated Other specified disease of pancreas documented in this encounter Additional Health Concerns Infection Onset Date Last Indicated Resolved Time MRSA Comment: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 Source: [employer]. 05/14/2016 documented as of this encounter Care Teams Ophthalmologist Relationship Specialty Start Date End Date Ashli Howell MD [facility] [address] [place] [address] PCP - General Family Medicine 05/06/24 Lissa White PA-C 500 [place], [place] [phone] Physician Lithostripper Endocrinology, Diabetes, and Metabolism 01/05/24 Eriberto Romano MD 420 [facility] 195 [place] [address] Colon & Rectal 01/18/24 William Spain MD 717 [facility] 353 [facility] [address] [place] [address] Assigned Nephrology Provider 01/26/24 Aroldo Kimbrough MD 909 [place], [place] [address] Gastroenterology 05/12/24 documented as of this encounter
--- OUTSIDE RECORDS SUMMARY | 2024-06-27 22:33 | XMS_ITS | Encounter Summary ---
Author Organization [facility] Address [address] [place] [address] Care Team Providers Care Loan And Credit Manager Name Role Phone Lissa White PA-C Unavailable Eriberto Romano MD Unavailable [phone] William Spain MD Unavailable [phone] Ashli Howell MD Primary Care Provider + [phone] Aroldo Kimbrough MD Unavailable Reason for Visit * Reason Onset Date Comments Procedure 05/18/2024 COLON cxl Encounter Details Date Type Department Care Team (Late st Contact Info) Description 05/18/2024 [facility] Gastroenterology Clinic [address] 4th [place] [address] None Procedure (COLON cxl) Social History Tobacco Use Types Packs/Day Years [...] encounter Miscellaneous Notes * Telephone Encounter - Sergio Nunez - 05/18/2024 1:04 PM CDT Caller: RNCC spoke with patient Reason for Reschedule/Cancellation (please be detailed, any staff messages or encounters to note?): Added to advanced GI procedure. Prior to reschedule please review: Ordering Provider: KYLEE NATH Determined: cs Does patient have any ASC Exclusions, please identify?: Cirrhosis Notes on Cancelled Procedure: Procedure: Lower Endoscopy [Colonoscopy] Date: 07/14/2024 Location: [facility]; [address] [place] [address], 3rd Floor, [place] [address] Surgeon: Tank Rescheduled: No, not needed. Did you cancel or rescheduled an EUS procedure? No. documented in this encounter Plan of Treatment Upcoming Encounters Date Type Department Care Team (Late st Contact Info) Description 07/18/2024 PRE VISIT [facility] Colon and Rectal Surgery Clinic [address] [place] [phone] Eriberto Romano MD [address] [place] [address] Previsit 07/18/2024 11:00 AM CDT Office Visit [facility]al Surgery Clinic [address] [phone] Kylee Nath MD [address] [place] [address] [address] [place], [place] [address] Eriberto Romano MD [address] [place] [address]85 08/19/2024 1:05 PM GAS CHARGER Office Visit [facility] Transplant Clinic [address] [place] [phone] Georgette Velez MD [address] [place] [address] documented as of this encounter Visit Diagnoses Not on filedocumented in this encounter Additional Health Concerns Infection Onset Date Last Indicated Resolved Time MRSA Comment: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 Source: [employer]. 05/14/2016 documented as of this encounter Care Teams Loan And Credit Manager Relationship Specialty Start Date End Date Ashli Howell MD [facility] [address] [place] [address] PCP - General Family Medicine 05/06/24 Lissa White PA-C 500 [place], [place] [address] Physician Retail Services Professional Endocrinology, Diabetes, and Metabolism 01/05/24 Eriberto Romano MD 420 [facility] 195 [place], [place] [address] Colon & Rectal 01/18/24 William Spain MD 717 [facility] 353 [facility] 1932 [place], [place] [address] Assigned Nephrology Provider 01/26/24 Aroldo Kimbrough MD 909 [place], [place] [address] Gastroenterology 05/12/24 documented as of this encounter
--- OUTSIDE RECORDS SUMMARY | 2024-06-27 22:33 | XMS_ITS | Encounter Summary ---
Author Organization [facility] Address [address] [place] [address]. [place] [address] Care Team Providers Care Certified Low Vision Therapist Name Role Phone ChristopherLissa ADRIANA Unavailable Eriberto Romano MD Unavailable [phone] William Spain MD Unavailable [phone] Ashli Howell MD Primary Care Provider + [phone] Aroldo Kimbrough MD Unavailable Encounter Details Date Type Department Care Team (Latest Contact Info) Description 05/16/2024 Travel Social History Tobacco Use Types Packs/Day [...] st Contact Info) Description 07/18/2024 PRE VISIT [facility] Colon and Rectal Surgery Clinic [address] 4th [place] [address] Eriberto Romano MD [address] [place] [address] [address] [place] [address] Previsit 07/18/2024 11:00 AM CDT Office Visit [facility] Rectal Surgery Clinic [address] 4th [place] [phone] Kylee uF MD 516 [facility] [address] [place] [address] Eriberto Romano MD [address] [address] 08/19/2024 1:05 PM CART ATTENDANT Office Visit [facility] Transplant Clinic [address] [place] [phone] Georgette Velez MD 500 [place] [address] documented as of this encounter Visit Diagnoses Not on filedocumented in this encounter Additional Health Concerns Infection Onset Date Last Indicated Resolved Time MRSA Comment: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 Source: [employer]. 05/14/2016 documented as of this encounter Care Teams Certified Low Vision Therapist Relationship Specialty Start Date End Date Ashli Howell MD [facility] [address] [place] [address] PCP - General Family Medicine 05/06/24 Lissa White PA-C [address] [place] [address] Physician Crystallographer Endocrinology, Diabetes, and Metabolism 01/05/24 Eriberto Romano MD [address] [place] [address] Colon & Rectal 01/18/24 William Spain MD 717 [facility] 353 [facility] [address] [place] [address] Assigned Nephrology Provider 01/26/24 Aroldo Kimbrough MD 909 [place], [place] [address] Gastroenterology 05/12/24 documented as of this encounter
--- OUTSIDE RECORDS SUMMARY | 2024-06-27 22:33 | XMS_ITS | Encounter Summary ---
Author Organization [facility] Address [address] [place] [address] Care Team Providers Care Solderer Electronic Name Role Phone Lissa White PA-C Unavailable Eriberto Romano MD Unavailable [phone] William Spain MD Unavailable [phone] Ashli Howell MD Primary Care Provider + [phone] Aroldo Kimbrough MD Unavailable Georgette Velez MD Unavailable [phone] Encounter Details Date Type Department Care Team (Late st Contact Info) Description 05/18/2024 MyC Medical Advice [facility] Gastroenterology Clinic [address] 4th [place] [address] Fortunato Burgess Social History Tobacco Use Types Packs/Day Years [facility] [address] [phone] Eriberto Romano MD [address] [address] Previsit 07/18/2024 11:00 AM CDT Office Visit [facility]al Surgery Clinic [address] [phone] Kylee Fu MD 6 [facility] 2A [place], [place] [address] Eriberto Romnao MD [address] [address] 08/19/2024 1:05 PM FIRE REGULATOR Office Visit [facility] Transplant Clinic [address] [place] [phone] Georgette Velez MD 500 [place], [place] [address] documented as of this encounter Visit Diagnoses Not on filedocumented in this encounter Additional Health Concerns Infection Onset Date Last Indicated Resolved Time MRSA Comment: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 Source: [employer]. 05/14/2016 documented as of this encounter Care Teams Solderer Electronic Relationship Specialty Start Date End Date Ashli Howell MD [facility] [address] [place] [address] PCP - General Family Medicine 05/06/24 Lissa White PA-C 500 [place], [place] [address] Physician Park Maintainer Endocrinology, Diabetes, and Metabolism 01/05/24 Eriberto Romano MD 420 [facility] 195 [place], [place] [address] Colon & Rectal 01/18/24 William Spain MD 717 [facility] 353 [facility] 1932 [place], [place] [address] Assigned Nephrology Provider 01/26/24 Aroldo Kimbrough MD [address] [place] [phone] Gastroenterology 05/12/24 Georgette Velez MD 500 [place], [place] [address] Nephrology 05/26/24 documented as of this encounter
--- OUTSIDE RECORDS SUMMARY | 2024-06-27 22:33 | XMS_ITS | Encounter Summary ---
Author Organization [place] Address [address] [place] [address]. [place] [address] Care Team Providers Care Central Sterile Technician Name Role Phone ChristopherLissa ADRIANA Unavailable Eriberto Romano MD Unavailable [phone] William Spain MD Unavailable [phone] Ashli Howell MD Primary Care Provider + [phone] Aroldo Kimbrough MD Unavailable Encounter Details Date Type Department Care Team (Latest Contact Info) Description 05/17/2024 Travel Social History Tobacco Use Types Packs/Day [...] st Contact Info) Description 07/18/2024 PRE VISIT [facility] [address] 4th [place] [address] Eriberto Romano MD [address] [place] [address] 195 [place] [address] Previsit 07/18/2024 11:00 AM CDT Office Visit [facility] [address] 4th [place] [phone] Kylee Fu MD 516 [facility] [address] [place] [address] Eriberto Romano MD [address] [address] 08/19/2024 1:05 PM CORPORATE COMMUNICATIONS SPECIALIST Office Visit [facility] [address] [place] [phone] Georgette Velez MD 500 [place] [address] documented as of this encounter Visit Diagnoses Not on filedocumented in this encounter Additional Health Concerns Infection Onset Date Last Indicated Resolved Time MRSA Comment: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 Source: [employer]. 05/14/2016 documented as of this encounter Care Teams Central Sterile Technician Relationship Specialty Start Date End Date Ashli Howell MD [facility] [address] [place] [address] PCP - General Family Medicine 05/06/24 Lissa White PA-C [address] [place] [address] Physician Liquor Gallery Operator Endocrinology, Diabetes, and Metabolism 01/05/24 Eriberto Romano MD [address] [place] [address] Colon & Rectal 01/18/24 William Spain MD 717 [facility] [place] 353 [facility] [address] [place] [address] Assigned Nephrology Provider 01/26/24 Aroldo Kimbrough MD 909 [place], [place] [address] Gastroenterology 05/12/24 documented as of this encounter
--- OUTSIDE RECORDS SUMMARY | 2024-06-27 22:33 | XMS_ITS | Encounter Summary ---
Author Organization [place] Address [address] [place] [address] Care Team Providers Care Ethnographer Name Role Phone Lissa White PA-C Unavailable Eriberto Romano MD Unavailable [phone] William Spain MD Unavailable [phone] Ashli Howell MD Primary Care Provider + [phone] Aroldo Kimbrough MD Unavailable Reason for Visit * Reason Onset Date Comments Transplant 05/20/2024 Encounter Details Date Type Department Care Team (Late st Contact Info) Description 05/20/2024 Telephone [facility] Trans[facility] Clinic 9[address] [place] [address] Scarlet Cruz RN Transplant Social History Tobacco Use Types Packs/Day [...] encounter Miscellaneous Notes * Telephone Encounter - Rox Kelly RN - 05/20/2024 8:27 AM CDT Left message and sent mychart message to patient regarding: Potassium = 3.3 (05/10/24) ALARM MECHANIC task: Recommend eating MORE Potassium rich food. Foods rich in potassium include bananas, oranges, carrots, avocados, kiwi, dried figs, tomatoes, spinach, seaweed, beans, peas, molasses, jesus beans, bran, milk, peanut butter or wheat germ. * Telephone Encounter - Scarlet Cruz RN - 05/20/2024 8:21 AM CDT Potassium = 3.3 (05/10/24) ALARM MECHANIC task: Recommend eating MORE Potassium rich food. Foods rich in potassium include bananas, oranges, carrots, avocados, kiwi, dried figs, tomatoes, spinach, seaweed, beans, peas, molasses, jesus beans, bran, milk, peanut butter or wheat germ. documented in this encounter Plan of Treatment Upcoming Encounters Date Type Department Care Team (Late st Contact Info) Description 07/18/2024 PRE VISIT [facility] [address] [phone] Eriberto Romano MD [address] [place] [address] 195 [place] [address] Previsit 07/18/2024 11:00 AM CDT Office Visit [facility] [address] [phone] Kylee Fu MD 6 [facility] [address] [place] [address] Eriberto Romano MD 420 [facility] 195 [place] [address] 08/19/2024 1:05 PM ULTRASOUND APPLICATIONS SPECIALIST Office Visit [facility] Transplant [facility] 9[address] [place] [phone] Georgette Velez MD 500 [place] [address] documented as of this encounter Visit Diagnoses Not on filedocumented in this encounter Additional Health Concerns Infection Onset Date Last Indicated Resolved Time MRSA Comment: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 Source: [employer]. 05/14/2016 documented as of this encounter Care Teams Ethnographer Relationship Specialty Start Date End Date Ashli Howell MD [facility] [address] [place] [address] PCP - General Family Medicine 05/06/24 Lissa White PA-C 500 [place], [place] [address] Physician Irrigation Specialist Endocrinology, Diabetes, and Metabolism 01/05/24 Eriberto Romano MD [address] [address] Colon & Rectal 01/18/24 William Spain MD 717 [facility] 353 [facility] 1932 [place] [address] Assigned Nephrology Provider 01/26/24 Aroldo Kimbrough MD 909 [place] [address] Gastroenterology 05/12/24 documented as of this encounter
--- OUTSIDE RECORDS SUMMARY | 2024-06-27 22:33 | XMS_ITS | Encounter Summary ---
Author Organization [place] Address [address] [place] [address]. [place] [address] Care Team Providers Care Forging Machine Operator Name Role Phone ChristopherLissa ADRIANA Unavailable Eriberto Romano MD Unavailable [phone] William Spain MD Unavailable [phone] Ashli Howell MD Primary Care Provider + [phone] Aroldo Kimbrough MD Unavailable Encounter Details Date Type Department Care Team (Latest Contact Info) Description 05/12/2024 Travel Social History Tobacco Use Types Packs/Day [...] st Contact Info) Description 07/18/2024 PRE VISIT [facility]al Surgery Clinic [address] 4th [place] [address] Eriberto Romano MD [address] [place] [address] 195 [place] [address] Previsit 07/18/2024 11:00 AM CDT Office Visit [facility] Surgery Clinic [address] 4th [place] [phone] Kylee Fu MD 516 [facility] [address] [place] [address] Eriberto Romano MD [address] [address] 08/19/2024 1:05 PM CREDIT PORTFOLIO MANAGER Office Visit [facility] Transplant Clinic [address] [place] [phone] Georgette Velez MD 500 [place] [address] documented as of this encounter Visit Diagnoses Not on filedocumented in this encounter Additional Health Concerns Infection Onset Date Last Indicated Resolved Time MRSA Comment: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 Source: [employer]. 05/14/2016 documented as of this encounter Care Teams Forging Machine Operator Relationship Specialty Start Date End Date Ashli Howell MD [facility] [address] [place] [address] PCP - General Family Medicine 05/06/24 Lissa White PA-C [address] [place] [address] Physician Barrel Polisher Endocrinology, Diabetes, and Metabolism 01/05/24 Eriberto Romano MD [address] [place] [address] Colon & Rectal 01/18/24 William Spain MD 717 [facility] 353 [facility] [address] [place] [address] Assigned Nephrology Provider 01/26/24 Aroldo Kimbrough MD 909 [place], [place] [address] Gastroenterology 05/12/24 documented as of this encounter
--- OUTSIDE RECORDS SUMMARY | 2024-06-27 22:33 | XMS_ITS | Encounter Summary ---
Author Organization [place] Address [address] [place] [address] Care Team Providers Care Marine Service Station Attendant Name Role Phone Lissa White PA-C Unavailable Eriberto Romano MD Unavailable [phone] William Spain MD Unavailable [phone] Ashli Howell MD Primary Care Provider + [phone] Aroldo Kimbrough MD Unavailable Encounter Details Date Type Department Care Team (Late st Contact Info) Description 05/18/2024 Prep for Procedure [facility] [address] [address] Maria Guadalupe Conner, RN Social History Tobacco Use Types Packs/Day [...] Info) Description 07/18/2024 PRE VISIT [facility] [address] [place] [phone] Eriberto Romano MD [address] [address] Previsit 07/18/2024 11:00 AM CDT Office Visit [facility] [address] [phone] Kylee Fu MD 516 [facility] [place] [address] Eriberto Romano MD [address] [address] 08/19/2024 1:05 PM CONVERSION DEVELOPER Office Visit [facility] Transplant Clinic [address] [place] [phone] Georgette Velez MD 500 [place], [place] [address] documented as of this encounter Procedures Procedure Name Priority Date/Time Associated Diagnosis Comments CASE REQUEST MODIFICATION Routine 2023 1:13 PM CDT documented in this encounter Visit Diagnoses Not on filedocumented in this encounter Additional Health Concerns Infection Onset Date Last Indicated Resolved Time MRSA Comment: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 Source: [employer]. 05/14/2016 documented as of this encounter Care Teams Marine Service Station Attendant Relationship Specialty Start Date End Date Ashli Howell MD [facility] [address] [place] [address] PCP - General Family Medicine 05/06/24 Lissa White PA-C 500 [place], [place] [address] Physician V Belt Inspector Endocrinology, Diabetes, and Metabolism 01/05/24 Eriberto Romano MD 420 [facility] 195 [place], [place] [address] Colon & Rectal 01/18/24 William Spain MD 717 [facility] 353 [facility] 1932 [place], [place] [address] Assigned Nephrology Provider 01/26/24 Aroldo Kimbrough MD 909 [place], [place] [address] Gastroenterology 05/12/24 documented as of this encounter
--- OUTSIDE RECORDS SUMMARY | 2024-06-27 22:33 | XMS_ITS | Encounter Summary ---
Author Organization [employer] Address [address] [place] [address]. [place] [address] Care Team Providers Care Advanced Nursing Professor Name Role Phone Lissa White PA-C Unavailable Eriberto Romano MD Unavailable [phone] William Spain MD Unavailable [phone] Ashli Howell MD Primary Care Provider + [phone] Aroldo Kimbrough MD Unavailable Encounter Details Date Type Department Care Team (Late st Contact Info) Description 05/13/2024 Telephone [facility] Gastroenterology Clinic [address] 4th [place] [address] Rosalind South MA Social History Tobacco Use Types Packs/Day Years [...] encounter Miscellaneous Notes * Telephone Encounter - Rosalind South MA - 05/13/2024 1:51 PM CDT Spoke to [facility] at and was informed that she will send over supporting labs/office visit to our office but she she's trying to get a hold of someone at the [place] office. Once she receives it she will fax it over to our office. * Telephone Encounter - Rosalind South MA - 05/13/2024 1:48 PM CDT ----- Message from Maria Guadalupe Ramirez sent at 05/13/2024 11:27 AM CDT ----- Regarding: Office note / report from [facility] needed in patient's chart Hi team Please obtain the office visit report and supporting labs/EKG from her PCP Dr Howell , [facility] in [place]. Pt thought all of this was completed on 05/11/24. We will use this as her pre op exam for an upcoming procedure in Jun so please have it uploaded to her chart as soon as you can. Thanks Julia documented in this encounter Plan of Treatment Upcoming Encounters Date Type Department Care Team (Late st Contact Info) Description 07/18/2024 PRE VISIT [facility]al Surgery Clinic [address] [phone] Eriberto Romano MD 420 [facility] 195 [place], [place] [address] Previsit 07/18/2024 11:00 AM CDT Office Visit [facility] Surgery Clinic [address] [phone] Kylee Fu MD 6 [facility] 2A [place], [place] [address] Eriberto Romano MD 420 [facility] 195 [place] [address] 08/19/2024 1:05 PM FLOORING SALESPERSON Office Visit [facility] Transplant Clinic 909 [place] [phone] Georgette Velez MD 500 [place] [address] documented as of this encounter Visit Diagnoses Not on filedocumented in this encounter Additional Health Concerns Infection Onset Date Last Indicated Resolved Time MRSA Comment: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 Source: [employer]. 05/14/2016 documented as of this encounter Care Teams Advanced Nursing Professor Relationship Specialty Start Date End Date Ashli Howell MD [facility] [address] [place] [address] PCP - General Family Medicine 05/06/24 Lissa White PA-C 500 [place], [place] [address] Physician Flour Broker Endocrinology, Diabetes, and Metabolism 01/05/24 Eriberto Romano MD 420 [facility] 195 [place] [address] Colon & Rectal 01/18/24 William Spain MD 717 [facility] 353 [facility] 1932 [place] [address] Assigned Nephrology Provider 01/26/24 Aroldo Kimbrough MD 909 [place] [address] Gastroenterology 05/12/24 documented as of this encounter
--- OUTSIDE RECORDS SUMMARY | 2024-06-27 22:34 | XMS_ITS | Encounter Summary ---
Author Organization [place] Address [address] [place] [address]. [place] [address] Care Team Providers Care Capacity Manager Name Role Phone No Ref-Primary, Physician Primary Care Provider Georgette Velez MD Unavailable [phone] Ely Galvez MD Unavailable [phone] Lissa White PA-C Unavailable Eriberto Romano MD Unavailable William Spain MD Unavailable [phone] No Ref-Primary, Physician Primary Care Provider Ashli Howell MD Primary Care Provider + [phone] Aroldo Kimbrough MD Unavailable Georgette Velez MD Unavailable [phone] Encounter Details Date Type Department Care Team (Late st Contact Info) Description 01/04/2024 MyC Medical Advice [facility] Transplant Clinic 909 [place] [address] Scarlet Cruz RN Social History [...] Upcoming Encounters Date Type Department Care Team ([facility] st Contact Info) Description 07/18/2024 PRE VISIT [facility] Colon and Rectal Surgery Clinic [address] [phone] Eriberto Romano MD [address] [place] [address] Previsit 07/18/2024 11:00 AM CDT Office Visit [facility] Surgery Clinic [address] [phone] Kylee Fu MD [address] [place], [place] [address]B 2[address] [place], [place] [address] Eriberto Romano MD [address] [place] [address] 08/19/2024 1:05 PM HAIRSPRING INSPECTOR Office Visit [facility] Transplant Clinic [address] [place] [phone] Georgette Velez MD [address] [place] [phone] documented as of this encounter Visit Diagnoses Not on filedocumented in this encounter Additional Health Concerns Infection Onset Date Last Indicated Resolved Time MRSA Comment: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 Source: [employer]. 05/14/2016 COVID-19 Comment:Covid recovered 04/19/2024 05/03/2024 05/03/2024 7:19 AM CDT Rule Out COVID-19 05/02/2024 05/02/2024 05/02/2024 2:27 PM CDT documented as of this encounter Care Teams Capacity Manager Relationship Specialty Start Date End Date No Ref-Primary, Physician PCP - General 07/20/23 01/04/24 No Ref-Primary, Physician PCP - General 05/02/24 05/05/24 Ashli Howell MD [facility] [address] [place] [address] PCP - General Family Medicine 05/06/24 Georgette Velez MD 500 [place], [place] [address] Assigned Nephrology Provider 08/29/23 01/25/24 Ely Galvez MD 303 [address] [facility] 200 [place], [place] [address] Hospitalist Endocrinology, Diabetes, and Metabolism 09/10/23 01/04/24 Lissa White PA-C 500 [place], [place] [address] Physician Energy Project Engineer Endocrinology, Diabetes, and Metabolism 01/05/24 Eriberto Romano MD 420 [facility] 195 [place], [place] [address] Colon & Rectal 01/18/24 William Spain MD 717 [facility] 353 [facility] 1932 [place], [place] [address] Assigned Nephrology Provider 01/26/24 Aroldo Kimbrough MD 909 [place], [place] [address] Gastroenterology 05/12/24 Georgette Velez MD 500 [place], [place] [address] Nephrology 05/26/24 documented as of this encounter
--- OUTSIDE RECORDS SUMMARY | 2024-06-27 22:34 | XMS_ITS | Encounter Summary ---
Author Organization [place] Address [address] [place] [address]. [place] [address] Care Team Providers Care Wire Splicer Name Role Phone Lissa White PA-C Unavailable Eriberto Romano MD Unavailable [phone] William Spain MD Unavailable [phone] No Ref-Primary, Physician Primary Care Provider Ashli Howell MD Primary Care Provider Aroldo Kimbrough MD Unavailable Georgette Velez MD Unavailable [phone] Encounter Details Date Type Department Care Team (Late st Contact Info) Description 04/26/2024 MyC Medical Advice [facility] Endocrinology Clinic [address] [place] [address] Shari Roblero LPN Social History Tobacco Use Types Packs/Day Years [...] st Contact Info) Description 07/18/2024 PRE VISIT [facility] Colon and Rectal Surgery Clinic [address] [place] [phone] Eriberto Romano MD [address] [address] Previsit 07/18/2024 11:00 AM CDT Office Visit [facility]al Surgery [facility] [address] [place] [phone] Kylee Fu MD [address] [place] [address] [address] [place], [place] [address] Eriberto Romano MD [address] [address]289[address] 08/19/2024 1:05 PM MANAGER POLICY Office Visit [facility] Transplant Clinic [address] [place] [phone] Georgette Velez MD [address] [place] [address] documented as of this encounter Visit Diagnoses Not on filedocumented in this encounter Additional Health Concerns Infection Onset Date Last Indicated Resolved Time MRSA Comment: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 Source: [employer]. 05/14/2016 COVID-19 Comment:Covid recovered 04/19/2024 05/03/2024 05/03/2024 7:19 AM CDT Rule Out COVID-19 05/02/2024 05/02/2024 05/02/2024 2:27 PM CDT documented as of this encounter Care Teams Wire Splicer Relationship Specialty Start Date End Date No Ref-Primary, Physician PCP - General 05/02/24 05/05/24 Ashli Howell MD [facility] [address] [place] [address] PCP - General Family Medicine 05/06/24 Lissa White PA-C 500 [place] [address] Physician Personnel Interviewer Endocrinology, Diabetes, and Metabolism 01/05/24 Eriberto Romano MD 420 [facility] 195 [place] [address] Colon & Rectal 01/18/24 William Spain MD 717 [facility] 353 [facility] 1932 [place] [address] Assigned Nephrology Provider 01/26/24 Aroldo Kimbrough MD 909 [place] [address] Gastroenterology 05/12/24 Georgette Velez MD 500 [place] [address] Nephrology 05/26/24 documented as of this encounter
--- OUTSIDE RECORDS SUMMARY | 2024-06-27 22:34 | XMS_ITS | Encounter Summary ---
Author Organization [place] Address [address] [place] [address] Care Team Providers Care Environmental Safety Specialist Name Role Phone Georgette Velez MD Unavailable [phone] Lissa White PA-C Unavailable Eriberto Romano MD Unavailable [phone] William Spain MD Unavailable [phone] No Ref-Primary, Physician Primary Care Provider Ashli Howell MD Primary Care Provider Aroldo Kimbrough MD Unavailable Georgette Velez MD Unavailable [phone] Encounter Details Date Type Department Care Team (Late st Contact Info) Description 01/15/2024 MyC Medical Advice [facility] [address] [place] [address] Vinicius Vick Social History Tobacco [...] [place] [facility] [address] [phone] Eriberto Romano MD [address] [address] Previsit 07/18/2024 11:00 AM CDT Office Visit [facility] [address] [phone] Kylee Fu MD [address] [place], [place] [address] [address] [place], [place] [address] Eriberto Romano MD [address] [address] 08/19/2024 1:05 PM QUALITY CONTROL TECHNICIAN Office Visit [facility] Transplant Clinic [address] [place] [phone] Georgette Velez MD 500 [place], [place] [address] documented as of this encounter Visit Diagnoses Not on filedocumented in this encounter Additional Health Concerns Infection Onset Date Last Indicated Resolved Time MRSA Comment: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 Source: [employer]. 05/14/2016 COVID-19 Comment:Covid recovered 04/19/2024 05/03/2024 05/03/2024 7:19 AM CDT Rule Out COVID-19 05/02/2024 05/02/2024 05/02/2024 2:27 PM CDT documented as of this encounter Care Teams Environmental Safety Specialist Relationship Specialty Start Date End Date No Ref-Primary, Physician PCP - General 05/02/24 05/05/24 Ashli Howell MD [facility] [address] [place] [address] PCP - General Family Medicine 05/06/24 Georgette Velez MD 500 [place] [address] Assigned Nephrology Provider 08/29/23 01/25/24 Lissa White PA-C 500 [place], [place] [address] Physician Executive Vice President Business Development Endocrinology, Diabetes, and Metabolism 01/05/24 Eriberto Romano MD 420 [facility] 195 [place] [address] Colon & Rectal 01/18/24 William Spain MD 717 [facility] 353 [facility] 1932 [place] [address] Assigned Nephrology Provider 01/26/24 Aroldo Kimbrough MD 9 [place] [address] Gastroenterology 05/12/24 Georgette Velez MD 500 [place] [address] Nephrology 05/26/24 documented as of this encounter
--- OUTSIDE RECORDS SUMMARY | 2024-06-27 22:34 | XMS_ITS | Encounter Summary ---
Author Organization [place] Address [facility] [place] [address] Care Team Providers Care Cyber Instructor Name Role Phone Lissa White PA-C Unavailable Eriberto Romano MD Unavailable [phone] William Spain MD Unavailable [phone] No Ref-Primary, Physician Primary Care Provider Ashli Howell MD Primary Care Provider [phone] Reason for Visit * Reason Comments Generalized Weakness * Auth/Cert Specialty Diagnoses / Procedures Referred By Beata pickett Referred To Contact EMERGENCY MEDICINE Diagnoses Hypomagnesemia Shortness of breath Emergency Dept [address] [place] [address] Referral ID Status Reason Start Date Expiration Date Visits Re quested Visits Authorized [id number] 1 1 Encounter Details Date Type Department Care Team (Late st Contact Info) Description 05/02/2024 1:09 PM CDT - 05/06/2024 4:15 PM CDT Hospital Encounter [place] [id number] [facility] [address] [place] [address] Enrique Cuba MD [facility] [address] [place] [address] Jacques Muñiz MD [address] [place] [address] HTN, kidney transplant related (Primary Dx); Hypomagnesemia; Shortness of breath; Nonspecific abnormal electrocardiogram (ECG) (EKG); Long QT interval; Elevated brain natriuretic peptide (BNP) level; Renal abscess of kidney transplant; Dilated intrahepatic bile duct; Abnormality of pancreatic duct; Type 2 diabetes mellitus without complication, with long-term current use of insulin (H); Pain Discharge Disposition: Home or Self Care Social [...] Sign Reading Time Taken Comments Blood Pressure 142/78 05/06/2024 7:47 AM CDT 1st attempt was 141/69 Pulse 84 05/06/2024 7:47 AM CDT Temperature 36.9 ??C (98.5 ??F) 05/06/2024 7 :47 AM CDT Respiratory Rate 18 05/06/2024 7:47 AM CDT Oxygen Saturation 98% 05/06/2024 7:4 7 AM CDT Inhaled Oxygen Concentration - - Weight 58.4 kg (128 lb 12.8 oz) 05/05/2024 8:11 PM CDT Height 160 cm (5' 3) 05/02/2024 9:00 PM CDT Body Mass Index 22.82 05/02/2024 9:00 PM CDT documented in this encounter Discharge Summaries * Tye Calle MD - 05/06/2024 1:45 PM CDT [facility] Discharge Summary Catarina Almeida Date of : 1950 Age: [age] year old Date of Admission: 05/02/2024 Date of Discharge: 05/06/2024 Admitting Physician: Jacques Muñiz MD Discharge Physician: Tye Calle MD Primary Provider: [facility] Primary Care Physician Discharge Diagnoses: Possible pyelonephritis and abscess involving transplanted kidney (right). Lactic acidosis, suspect related to infection. Intra and extrahepatic bile duct and pancreatic duct dilatation on imaging. History of kidney and liver transplant (2017). Troponin elevation, suspect demand ischemia (type 2 NSTEMI) related to above issues including infection. Elevated BNP, unclear significance. Prolonged QTc, possibly med effect. Right upper lobe pulmonary nodule on imaging (measuring 3 mm). Age-indeterminate superior endplate fracture of T3 on imaging, not apparently symptomatic. Left abdominal/back pain. Hypertension (benign essential). Insomnia. Other Chronic Medical Problems: Diabetes mellitus type 2. Chronic kidney disease, stage III. Hypothyroidism. Fibromyalgia. Chronic pain syndrome. Allergies: No Known Allergies Discharge Medications: Current Discharge Medication List START taking these medications Details amoxicillin-clavulanate (AUGMENTIN) 875-125 MG tablet Take 1 tablet by mouth 2 times daily for 14 days Qty: 28 tablet, Refills: 0 Associated Diagnoses: Renal abscess of kidney transplant Lidocaine (LIDOCARE) 4 % Patch Place 1-3 patches onto the skin every 24 hours To prevent lidocaine toxicity, patient should be patch free for 12 hrs daily. Qty: 14 patch, Refills: 0 Associated Diagnoses: Pain oxyCODONE (ROXICODONE) 5 MG tablet Take 1 tablet (5 mg) by mouth every 4 hours as needed for moderate pain Qty: 10 tablet, Refills: 0 Associated Diagnoses: Pain CONTINUE these medications which have CHANGED Details carvedilol (COREG) 3.125 MG tablet Take 1 tablet (3.125 mg) by mouth 2 times daily (with meals) Oneto two times daily Qty: 60 tablet, Refills: 3 Associated Diagnoses: HTN, kidney transplant related insulin glargine (LANTUS PEN) 100 UNIT/ML pen Inject 10 Units subcutaneously every morning Comments: If Lantus is not covered by insurance, may substitute Basaglar or Semglee or other insulin glargine product per insurance preference at same dose and frequency. Associated Diagnoses: Type 2 diabetes mellitus without complication, with long- term current use of insulin (H) CONTINUE these medications which have NOT CHANGED Details acyclovir (ZOVIRAX) 400 MG tablet ONE TABLET 3 TIMES DAILY x 5 days Qty: 30 tablet, Refills: 5 Associated Diagnoses: Kidney replaced by transplant ALENDRONATE SODIUM 70 MG OR TABS 1 TABLET WEEKLY ON AN EMPTY STOMACH Qty: 4, Refills: 4 Associated Diagnoses: Osteoporosis amLODIPine (NORVASC) 5 MG tablet Take 5 mg by mouth every evening fluticasone (FLONASE) 50 MCG/ACT nasal spray [place] 1 spray into both nostrils daily as needed for rhinitis or allergies insulin aspart (NOVOLOG PEN) 100 UNIT/ML pen Inject 8 Units subcutaneously 3 times daily (with meals) plus sliding scale levothyroxine (SYNTHROID/LEVOTHROID) 75 MCG tablet Take 75 mcg by mouth daily mycophenolate (GENERIC EQUIVALENT) 250 MG capsule Take 2 capsules (500 mg) by mouth 2 times daily Qty: 120 capsule, Refills: 11 Comments: TXP DT 12/30/2016 (Kidney / Liver) TXP Dischg DT DX Kidney replaced by transplant Z94.0 [facility] ([place], [place]) Associated Diagnoses: Liver transplanted (H) predniSONE (DELTASONE) 5 MG tablet Take 1 tablet (5 mg) by mouth daily Qty: 30 tablet, Refills: 11 Comments: TXP DT 12/30/2016 (Kidney / Liver) TXP Dischg DT DX Kidney replaced by transplant Z94.0 [facility] ([place], [place]) Associated Diagnoses: Kidney replaced by transplant; Liver replaced by transplant (H) Semaglutide, 2 MG/DOSE, (OZEMPIC, 2 MG/DOSE,) 8 MG/3ML pen Inject 2 mg Subcutaneous every 7 days tacrolimus (GENERIC EQUIVALENT) 1 MG capsule Take 2 capsules (2 mg) by mouth every morning AND 1 capsule (1 mg) every evening. Qty: 270 capsule, Refills: 3 Comments: TXP DT 12/30/2016 (Kidney / Liver) TXP Dischg DT DX Kidney replaced by transplant Z94.0 [facility] ([place], [place]) Associated Diagnoses: Liver replaced by transplant (H) STOP taking these medications traZODone (DESYREL) 50 MG tablet Comments: Reason for Stopping: Discharge Instructions and Follow-Up: Discharge Orders Activity Your activity upon discharge: activity as tolerated Follow-up and recommended labs and tests 1. Follow-up with primary care provider, [facility], within 7 days for hospital follow- up. The following labs/tests are recommended: CBC, BMP, LFT's. 2. Follow-up with primary transplant teams (for renal and liver transplants) within 1-2 weeks. Reason for your hospital stay 1. Possible pyelonephritis and abscess involving transplanted kidney (right). 2. Lactic acidosis, suspect related to infection. 3. Intra and extrahepatic bile duct and pancreatic duct dilatation on imaging. 4. History of kidney and liver transplant (2017). 5. Troponin elevation, suspect demand ischemia (type 2 NSTEMI) related to above issues including infection. Elevated BNP, unclear significance. 6. Prolonged QTc, possibly med effect. 7. Right upper lobe pulmonary nodule on imaging (measuring 3 mm). 8. Age-indeterminate superior endplate fracture of T3 on imaging, not apparently symptomatic. 9. Left abdominal/back pain. 10. Hypertension (benign essential). 11. Insomnia. Diet Follow this diet upon discharge: Orders Placed This Encounter NPO for Medical/Clinical Reasons Except for: Meds Consultations This Hospital Stay: VASCULAR ACCESS ADULT IP CONSULT NEPHROLOGY IP CONSULT INFECTIOUS DISEASES IP CONSULT INTERVENTIONAL RADIOLOGY ADULT/PEDS IP CONSULT VASCULAR ACCESS ADULT IP CONSULT VASCULAR ACCESS ADULT IP CONSULT [facility] IP CONSULT GI LUMINAL ADULT IP CONSULT Admission History: Please see the H&P by Jacques Muñiz MD on 05/02/2024 for complete details. 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 CT scan of the chest/abdomen/pelvis which showed findings concerning for an obstructive process in the biliary tree as well as potential infectioninvolving her transplanted kidney. Accepted at [facility], but no beds and subsequently admitted to [facility]. On initial evaluation, pt was afebrile, normotensive, tachycardic. ECG showed SR with diffuse TWI, QTc 581 ms. Labs notable for CBC with normal; BMP with bicarb 21, cr 1.37, AG normal, magnesium 1.6;LFT's unremarkable; lactate 2.1; troponin 45, NTP-BNP 95607; UA negative; COVID-19, influenza and RSV negative. CT CAP showed postsurgical changes of liver transplant, worsening intrahepatic and extrahepatic biliary ductal dilatation, increasing dilatation of the main pancreatic duct, findings may be secondaryto an obstructive process at the ampulla; right lower quadrant renal transplant demonstrated new area of patchy hyperenhancement with a complex hypoattenuating collection, findings could represent pyelonephritis with an associated renal abscess; no evidence of acute pulmonary embolism. Renal transplant US showed normal sonographic appearance of the right renal allograft, specifically, there were no fluid collections in the renal allograft to account for the finding on the CT earlier in the day (though noted that the findings on the CT remained suspicious for possible abscess and MRI should be considered); patent allograft renal artery and vein without stenosis; borderline resistive indices in the renal allograft. Accepted at [facility], but no beds and subsequently admitted to [facility]. Problem Oriented Hospital Course: Possible pyelonephritis and abscess involving transplanted kidney (right). Lactic acidosis, suspect related to infection. History of kidney transplant (2017). Chronic kidney disease, stage III. * Status post dual liver kidney transplant on December 30, 2016 at [facility] in [place]. * Initial presentation and imaging as above. Accepted for transfer to [facility], but ultimately not beds, so admitted here. Started on IV piperacillin-tazobactam on admit. BC 05/02 NGTD. Nephrology and GI consulted on admit. * On 05/03, UC no growth. Started on stress dose IV steroids and IVF's. MRCP showed findings suspicious for a 2.2 cm abscess in the ventral aspect of the patient's right pelvic transplant kidney. * On 05/04, steroids changed back to PO. * On 05/05, prednisone changed to home dose and IVF's stopped. Consulted ID. * On 05/06, seen by ID and piperacillin-tazobactam changed to ceftriaxone. ID recommended IR aspiration of the abscess. However, per IR, the lesion could not be aspirated as it could not be visualized by US (favor not to do CT guided as it would require contrast). I further spoke informally with Transplant Nephrology at [facility]. It was felt that overall it would be OK to empirically treat with antibiotics (PO at discharge) with close outpatient Transplant team follow- up and repeat transplant US. Recent Labs Lab 05/06/24 0836 05/05/24 0824 05/04/24 0750 05/03/24 1106 05/02/24 1323 CR 1.30* 1.32* 1.29* 1.32* 1.37* Estimated Creatinine Clearance: 36.6 mL/min (A) (based on SCr of 1.3 mg/dL (H)). - Discharge on amoxicillin-clavulanate for 2 weeks. - Continue mycophenolate, prednisone and tacrolimus. - Continue to monitor BMP. - Avoid nephrotoxic medications. - Follow-up closely with the transplant team for repeat imaging to ensure resolution of the abscess. History of liver transplant (2017). Intra and extrahepatic bile duct and pancreatic duct dilatation on imaging. 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 Follows with the transplant clinic at the [facility] as an outpatient. * Initial presentation and imaging as above. GI consulted on admit. * On 05/03, MRCP showed intrahepatic and extrahepatic biliary ductal dilatation; redemonstrated diffuse pancreatic ductal dilatation, no obstructing stone, an ampullary stricture may be present, givenabnormal liver function tests, ERCP should be considered in further evaluation. Started on stress IV steroids as above. * On 05/04, converted to PO steroids. * On 05/06, [facility] GI consulted and evaluated the pt. Given her clinical stability with no symptoms and LFT's not elevated, recommended continuing to monitor LFT's and for outpatient EUS/ERCP. Recent Labs Lab 05/06/24 0836 05/05/24 0824 05/04/24 0750 05/03/24 1106 05/02/24 1501 05/02/24 1323 ALBUMIN 3.6 3.4* 3.7 3.6 -- 3.9 BILITOTAL 0.2 0.3 0.2 0.3 -- 0.3 ALT 7 7 8 9 -- 11 AST 16 16 15 20 -- 20 ALKPHOS 39* 40 46 48 -- 58 PROTEIN -- -- -- -- Negative -- LIPASE -- -- 21 -- -- 27 CR 1.30* 1.32* 1.29* 1.32* -- 1.37* - Continue mycophenolate, prednisone and tacrolimus. - Follow-up closely with the transplant team for further evaluation of the abnormal CT biliary and pancreatic duct dilatation Troponin elevation, suspect demand ischemia (type 2 NSTEMI) related to above issues including infection. Elevated BNP, unclear significance. * Initial presentation as above. Troponin 45 and BNP [address]81 on admit. Pt was dyspneic with recent COVID. CT chest negative for PE, also no airspace consolidation or pleural effusion. On admit, lungs clear to auscultation, no lower extremity edema; weight was down about 7 pounds over the past week [employer]. Recent Labs Lab 05/02/24 1523 05/02/24 1323 NTBNPI -- 15,821* CTROPT 44* 45* - Continue to monitor clinically. - Consider outpatient echo through her primary care clinic. Right upper lobe pulmonary nodule measuring 3 mm. * CT on admit also showed right upper lobe pulmonary nodule measuring 3 mm; for low-risk patients, no follow-up needed; for high-risk patients, optional follow- up at 12 months. - Follow-up outpatient. Hypertension (benign essential). [[employer]: amlodipine 5 mg daily; carvedilol 12.5 mg 1-2x/day.] * On admit, noted that patient had not been taking [carvedilol] recently as she did not feel like she needed it. Amlodipine and carvedilol held on admit. * On 05/04, noted to be tachycardic and carvedilol restarted. - Continue amlodipine 5 mg daily and carvedilol 3.125 mg BID. Left abd/back pain. * Noted left abdominal/back pain for the last 2 months [employer]. * Seen by GI and symptoms not felt to be related to CT findings. - Continue lidocaine patch, PRN acetaminophen, PRN oxycodone; minimize opioids as able. Age-indeterminate superior endplate fracture of T3, not apparently symptomatic. * CT on admit also showed age-indeterminate superior endplate fracture of T3 with mild height loss. - Continue to monitor clinically. Diabetes mellitus type 2. [[employer]: glargine 20U qam; aspart 8U TID + sliding scale with meals; semaglutide 2 mg q7d.] * Hemoglobin A1c 6.1% on 05/02/2024. Recent Labs Lab 05/06/24 1201 05/06/24 0836 05/06/24 0801 05/06/24 0155 05/05/24 2140 05/05/24 1800 GLC 126* 97 93 107* 94 201* Recent Labs Lab Test 05/02/24 1323 A1C 6.1* - Continue moderate carbohydrate diet. - Continue glargine 10U qam (decreased; increase back to baseline based on glucose levels). - Continue aspart 8U TID with meals with sliding scale. - Resume semaglutide at discharge. Prolonged QTc, possibly med effect. * Initial presentation as above.QTc 581 ms on admit. [employer] trazodone held on admit. * QTc 536 ms on 05/03 * QTc 506 ms on 05/04. * QTc 503 ms on 05/05. - Continue to monitor outpatient. - Continue to hold [employer] trazodone. Insomnia. * [employer] trazodone held on admit due to prolonged QTc. * Noted pt has used zolpidem in the past but stopped being effective so transitioned to trazadone. Did not want to try melatonin. * Started on PRN zolpidem. - Stop [employer] trazodone as above due to prolonged QTc. Hypothyroidism. - Continue levothyroxine. Recent COVID-19 infection. * Developed fever, cough, GI symptoms on 04/18/2024 and had a positive home COVID test on 04/19/24. * On admit, noted fever and GI symptoms improved, still had a cough and some shortness of breath - mainly with exertion. * Initial presentation as above. COVID-19 PCR negative on admit. * On 05/04,she confirmed that she did not take nirmatrelvir and ritonavir (Paxlovid) during her recent COVID infection. - Continue to monitor clinically. Fibromyalgia. Chronic pain syndrome. - Noted. Clinically Significant Risk Factors # Hypocalcemia: Lowest Ca = 8.5 mg/dL in last 2 days, will monitor and replace as appropriate # Hypoalbuminemia: Lowest albumin = 3.4 g/dL at 05/05/2024 8:24 AM, will monitor as appropriate # Hypertension: Noted on problem list Pending Results: Unresulted Labs Ordered in the Past 30 Days of this Admission Date and Time Order Name Status Description 05/02/2024 4:10 PM Blood Culture Line, venous Preliminary Discharge Disposition: Discharge to home. Discharge Time: Approximately 45 minutes. Condition and Physical on Discharge: See progress note on the same date as this discharge summary. [facility] Imaging Studies, Lab Findings and Procedures/Surgeries: Results for orders placed or performed during the hospital encounter of 05/02/24 CT Chest (PE) Abdomen Pelvis w Contrast Addendum: 05/02/2024 IMPRESSION #6: New small splenic infarct. LEYDA MCKENZIE MD Narrative CT CHEST PE ABDOMEN PELVIS W CONTRAST 05/02/2024 3:00 PM CLINICAL HISTORY: Shortness of breath, LLQ abd pain TECHNIQUE: TECHNIQUE: CT angiogram chest and routine CT abdomen pelvis with IV contrast. Arterial phase through the chest and venous phase through the abdomen and pelvis. 2D and 3D MIP reconstructions were performed by the architectural technologist. Dose reduction techniques were used. CONTRAST: [...] GLANDS: No significant nodules. KIDNEYS/BLADDER: Atrophic bilateral [place] kidneys which are symmetrically enhancing without hydronephrosis. [...] loss. Multilevel degenerative changes of the spine. Impression IMPRESSION: 1. Postsurgical changes of liver transplant. [...] follow-up at 12 months. LEYDA MCKENZIE MD US Renal Transplant with Doppler Narrative EXAM: US RENAL TRANSPLANT WITH DOPPLER LOCATION: [facility] DATE: 05/02/2024 INDICATION: Right lower quadrant renal [...] transplant resistive index (RI) is borderline ranging between0.74-0.83. The transplant renal vein is patent without stenosis. Patent right iliac artery and vein above and below the anastomosis. Impression IMPRESSION: 1. Normal sonographic appearance of the [...] Borderline resistive indices in the renal allograft. MR Abdomen MRCP w/o & w Contrast Narrative EXAM: MR ABDOMEN MRCP W/O and W CONTRAST LOCATION: [facility] DATE: 05/03/2024 INDICATION: history of liver and kidney transplants; presented with generalized weakness, recent fever and GI symptoms; CT abdomen pelvis with increasing bile duct dilatation and concern for pyelonephritis w renal abcess; LFTs normal, creatinine up slightly COMPARISON: CT from 05/02/2024. TECHNIQUE: Routine MR liver/pancreas protocol including axial and coronal MRCP sequences. 2D and 3Dreconstruction performed by MR technologist including MIP reconstruction [...] a T2 hyperintense focus in the liver hilumadjacent to the proximal extrahepatic common bile duct [...] of previously described infarct. Normal adrenals. Atrophic [place] kidneys. Right lower quadrant transplant kidney with hypoenhancement of the lower pole cortex and a multilocular fluid collection in the ventral lower pole measuring 2.2 x1.9 cm on image 6 of series 19. Normal caliber bowel. Normal caliber abdominal aorta. Distal colonic diverticulosis. Normal bladder. No acute osseous findings. Impression IMPRESSION: 1. Intrahepatic and extrahepatic biliary ductal dilatation. Redemonstrated diffuse pancreatic ductal dilatation. No obstructing stone. 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 Given abnormal liver function tests, ERCP should be considered in further evaluation. 2. Findings suspicious for a 2.2 cm abscess in the ventral aspect of the patient's right pelvic transplant kidney. documented in this encounter Medications at Time [...] 5 mg by mouth every evening 03/30/2023 carvedilol (COREG) 3.125 MG tabletIndications:HT N, kidney transplant related Take 1 tablet (3.125 mg) by mouth 2 times daily (with meals) One to two times daily 60 tablet 3 05/06/2024 fluticasone (FLONASE) 50 MCG/ACT nasal spray [place] 1 spray into both nostrils daily as [...] by mouth daily Lidocaine (LIDOCARE) 4 % PatchIndications:Adleina n Place 1-3 patches onto the skin [...] mg) every evening. 270 capsule 3 01/19/2024 amoxicillin-clavulan ate (AUGMENTIN) 875-125 MG tabletIndications:Re nal abscess of kidney transplant Take 1 tablet by mouth 2 times daily for 14 days 28 tablet 05/06/2024 05/20/2024 mycophenolate (GENERIC EQUIVALENT) 250 MG capsuleIndications:L iver transplanted Take 2 capsules (500 mg) by mouth 2 times daily 120 capsule 11 06/18/2023 06/23/2024 documented as of this encounter Progress Notes * Maria Dolores Ha RN - 05/06/2024 4:15 PM CDT Patient discharged at 4:15 PM to Discharged to home IV was discontinued. Pain at time of discharge was 0/10. Belongings returned to patient. Discharge instructions and medications reviewed with patient. Patient verbalized understanding and all questions were answered. Prescriptions given to patient. At time of discharge, patient condition was stable and left the unit via wheelchair escorted by patient transportation driver. * Slava Rodriguez MD - 05/06/2024 12:15 PM CDT I reviewed her chart. Scr is stable. No new recommendations from us. Will monitor labs with you from a distant. * Tye Calle MD - 05/06/2024 7:36 AM CDT [facility] Internal Medicine Hospitalist Progress Note 05/06/2024 I evaluated patient on the above date. Tye Calle Jr., MD [phone] (p) Text Page Vocera [New actions/orders today (05/06/2024) are underlined in the assessment and plan. 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 CT scan of the chest/abdomen/pelvis which showed findings concerning for an obstructive process in the biliary tree as well as potential infection involving her transplanted kidney. Accepted at [facility], but no beds and subsequently admitted to [facility]. On initial evaluation, pt was afebrile, normotensive, tachycardic. ECG showed SR with diffuse TWI, QTc 581 ms. Labs notable for CBC with normal; BMP with bicarb 21, cr 1.37, AG normal, magnesium 1.6;LFT's unremarkable; lactate 2.1; troponin 45, NTP-BNP 17001; UA negative; COVID-19, influenza and RSV negative. CT CAP showed postsurgical changes of liver transplant, worsening intrahepatic and extrahepatic biliary ductal dilatation, increasing dilatation of the main pancreatic duct, findings may be secondaryto an obstructive process at the ampulla; right lower quadrant renal transplant demonstrated new area of patchy hyperenhancement with a complex hypoattenuating collection, findings could represent pyelonephritis with an associated renal abscess; no evidence of acute pulmonary embolism. Renal transplant US showed normal sonographic appearance of the right renal allograft, specifically, there were no fluid collections in the renal allograft to account for the finding on the CT earlier in the day (though noted that the findings on the CT remained suspicious for possible abscess and MRI should be considered); patent allograft renal artery and vein without stenosis; borderline resistive indices in the renal allograft. Possible pyelonephritis and abscess involving transplanted kidney (right). Lactic acidosis, suspect related to infection, resolved. History of kidney transplant (2017). Chronic kidney disease, stage III. * Status post dual liver kidney transplant on December 30, 2016 at [facility] in [place]. * Initial presentation and imaging as above. Accepted for transfer to [facility], but ultimately not beds, so admitted here. Started on IV piperacillin-tazobactam on admit. BC 05/02 NGTD. Nephrology and GI consulted on admit. * On 05/03, UC no growth. Started on stress dose IV steroids and IVF's. MRCP showed findings suspicious for a 2.2 cm abscess in the ventral aspect of the patient's right pelvic transplant kidney. * On 05/04, steroids changed back to PO. * On 05/05, prednisone changed to home dose and IVF's stopped. Consulted ID. Recent Labs Lab 05/06/24 0836 05/04/24 0750 05/03/24 1106 05/02/24 1711 05/02/24 1326 05/02/24 1323 WBC 8.7 -- 6.4 -- -- 7.7 LACT -- -- -- 0.6* 2.1* -- CRPI -- <3.00 -- -- -- -- Recent Labs Lab 05/06/24 0836 05/05/24 0824 05/04/24 0750 05/03/24 1106 05/02/24 1323 CR 1.30* 1.32* 1.29* 1.32* 1.37* Estimated Creatinine Clearance: 36.6 mL/min (A) (based on SCr of 1.3 mg/dL (H)). - I d/w Dr. Berkowitz, ID, who recommends aspiration of the right kidney lesion, appreciate help. - Continue piperacillin-tazobactam (started 05/02). - Continue mycophenolate, prednisone and tacrolimus. - Continue to monitor BMP - repeat in am. - Avoid nephrotoxic medications. - Appreciate Nephrology help. ADDENDUM 0850: - I d/w IR. The lesion cannot be aspirated as it cannot be visualized by US. Would not do CT guidedas it would require contrast. - I further spoke informally with Transplant Nephrology at [facility], Dr. Velez. Sumner that overall itwould be OK to empirically treat with antibiotics (PO at discharge) with close outpatient Transplant team follow-up and repeat transplant US. Did not feel pt needed to transfer to [facility] from her (renal transplant) standpoint. Appreciate her help. History of liver transplant (2017). Intra and extrahepatic bile duct and pancreatic duct dilatation on imaging. 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 Follows with the transplant clinic at the [facility] as an outpatient. * Initial presentation and imaging as above. GI consulted on admit. * On 05/03, MRCP showed intrahepatic and extrahepatic biliary ductal dilatation; redemonstrated diffuse pancreatic ductal dilatation, no obstructing stone, an ampullary stricture may be present, givenabnormal liver function tests, ERCP should be considered in further evaluation. Started on stress IV steroids as above. * On 05/04, converted to PO steroids. Recent Labs Lab 05/06/24 0836 05/05/24 0824 05/04/24 0750 05/03/24 1106 05/02/24 1501 05/02/24 1323 ALBUMIN 3.6 3.4* 3.7 3.6 -- 3.9 BILITOTAL 0.2 0.3 0.2 0.3 -- 0.3 ALT 7 7 8 9 -- 11 AST 16 16 15 20 -- 20 ALKPHOS 39* 40 46 48 -- 58 PROTEIN -- -- -- -- Negative -- LIPASE -- -- 21 -- -- 27 CR 1.30* 1.32* 1.29* 1.32* -- 1.37* - Continue mycophenolate, prednisone and tacrolimus. - Plan EUS/ERCP, once renal abscess treated/addressed. - Appreciate [facility] GI help. - Plan transfer to [facility] when able. ADDENDUM 0976: - I d/w Yesica Wolf PA-C from [facility] GI. Given that pt is a [facility] patient, will consult [facility] GI to assess, appreciate help. Troponin elevation, suspect demand ischemia (type 2 NSTEMI) related to above issues including infection. Elevated BNP, unclear significance. * Initial presentation as above. Troponin 45 and BNP 15418 on admit. Pt was dyspneic with recent COVID. CT chest negative for PE, also no airspace consolidation or pleural effusion. On admit, lungs clear to auscultation, no lower extremity edema; weight was down about 7 pounds over the past week [employer]. Recent Labs Lab 05/02/24 1523 05/02/24 1323 NTBNPI -- 15,821* CTROPT 44* 45* - Continue to monitor clinically. Right upper lobe pulmonary nodule measuring 3 mm. * CT on admit also showed right upper lobe pulmonary nodule measuring 3 mm; for low-risk patients, no follow-up needed; for high-risk patients, optional follow- up at 12 months. - Follow-up outpatient. Hypertension (benign essential). [[employer]: amlodipine 5 mg daily; carvedilol 12.5 mg 1-2x/day.] * On admit, noted that patient had not been taking [carvedilol] recently as she did not feel like she needed it. Amlodipine and carvedilol held on admit. * On 05/04, noted to be tachycardic and carvedilol restarted. - Continue carvedilol 3.125 mg BID. - Continue to hold [employer] amlodipine. Left abd/back pain. * Noted left abdominal/back pain for the last 2 months [employer]. - Continue lidocaine patch, PRN acetaminophen, PRN cyclobenzaprine PRN oxycodone; minimize opioids as able. - Continue PRN aqua K pad. Age-indeterminate superior endplate fracture of T3, not apparently symptomatic. * CT on admit also showed age-indeterminate superior endplate fracture of T3 with mild height loss. - Continue to monitor clinically. Diabetes mellitus type 2. [[employer]: glargine 20U qam; aspart 8U TID + sliding scale with meals; semaglutide 2 mg q7d.] * Hemoglobin A1c 6.1% on 05/02/2024. Recent Labs Lab 05/06/24 1201 05/06/24 0836 05/06/24 0801 05/06/24 0155 05/05/24 2140 05/05/24 1800 GLC 126* 97 93 107* 94 201* Recent Labs Lab Test 05/02/24 1323 A1C 6.1* - Continue moderate carbohydrate diet. - Continue glargine 10U qam. - Continue aspart 8U TID with meals. - Continue aspart ISS (medium). - Continue PRN hypoglycemia protocol. Prolonged QTc, possibly med effect. * Initial presentation as above.QTc 581 ms on admit. [employer] trazodone held on admit. * QTc 536 ms on 05/03 * QTc 506 ms on 05/04. * QTc 503 ms on 05/05. - Continue to monitor. - Continue to hold [employer] trazodone. Insomnia. * [employer] trazodone held on admit due to prolonged QTc. * Noted pt has used zolpidem in the past but stopped being effective so transitioned to trazadone. Did not want to try melatonin. * Started on PRN zolpidem. - Continue PRN zolpidem 5 mg at bedtime. Hypothyroidism. - Continue levothyroxine. Recent COVID-19 infection. * Developed fever, cough, GI symptoms on 04/18/2024 and had a positive home COVID test on 04/19/24. * On admit, noted fever and GI symptoms improved, still had a cough and some shortness of breath - mainly with exertion. * Initial presentation as above. COVID-19 PCR negative on admit. * On 05/04,she confirmed that she did not take nirmatrelvir and ritonavir (Paxlovid) during her recent COVID infection. - Continue to monitor clinically. Fibromyalgia. Chronic pain syndrome. - Noted. Clinically Significant Risk Factors # Hypocalcemia: Lowest Ca = 8.5 mg/dL in last 2 days, will monitor and replace as appropriate # Hypoalbuminemia: Lowest albumin = 3.4 g/dL at 05/05/2024 8:24 AM, will monitor as appropriate # Hypertension: Noted on problem list Diet: Moderate Consistent Carb (60 g CHO per Meal) Diet Prophylaxis: PCD's and ambulation Haji Catheter: Not present Lines: None Code Status: Full Code Disposition Plan Medically Ready for Discharge: Anticipated in 1-2 Days Expected discharge to home pending above. Entered: Tye Calle MD 05/06/2024, 1:28 PM Interval History Doing OK. Noted left lower back/flank pain yesterday. Tolerating diet. Weakness (pt presented with) resolved. * Data reviewed today: I reviewed all new labs and imaging over the last 24 hours. I personally reviewed no images or ECG's today. Physical Exam Most recent vitals: , Blood pressure (!) 142/78, pulse 84, temperature 98.5 ??F (36.9 ??C), temperature source Oral, resp. rate 18, height 1.6 m (5' 3), weight 58.4 kg (128 lb 12.8 oz), SpO2 98%. O2 Device: None (Room air) Vitals: 05/02/24 1319 05/05/242010 Weight: 55.8 kg (123 lb) 58.4 kg (128 lb 12.8 oz) Vital signs with ranges: Temp: [98.3 ??F (36.8 ??C)-99 ??F (37.2 ??C)] 98.5 ??F (36.9 ??C) Pulse: [84-88] 84 Resp: [18] 18 BP: (116-142)/(62-78) 142/78 SpO2: [93 %-98 %] 98 % Patient Vitals for the past 24 hrs: BP Temp Temp src Pulse Resp SpO2 Weight 05/06/24 0747 (!) 142/78 98.5 ??F (36.9 ??C) Oral 84 18 98 % -- 05/05/24 2144 116/62 99 ??F (37.2 ??C) Oral 86 18 93 % -- 05/05/242010 -- -- -- -- -- -- 58.4 kg (128 lb 12.8 oz) 05/05/24 1802 116/68 -- -- 84 -- -- -- 05/05/24 1639 127/70 98.3 ??F (36.8 ??C) Oral 88 18 98 % -- I/O's last 24 hours: I/O last 3 completed shifts: In: 480 [P.O.:480] Out: - Constitutional: awake, alert, oriented, pleasant, conversant Head: Eyes: ENT: Neck: Cardiovascular: regular rate and rhythm; no murmurs, rubs or gallops Lungs: diminished in the bases, no crackles or wheezes Gastrointestinal/Abdomen: soft, non-tender, non-distended, + bowel sounds : Musculoskeletal: Skin/Extremities: No bilateral lower extremity edema. Neurologic: Psychiatric: Hematologic/Lymphatic/Immunologic: Data Labs reviewed. Recent Labs Lab 05/06/24 1201 05/06/24 0836 05/06/24 0801 05/05/24 0916 05/05/24 0824 05/04/24 0922 05/04/24 0750 05/03/24 1213 05/03/24 1106 05/02/24 2149 05/02/24 1323 WBC -- 8.7 -- -- -- -- -- -- 6.4 -- 7.7 HGB -- 11.8 -- -- -- -- -- -- 11.1* -- 13.2 MCV -- 81 -- -- -- -- -- -- 80 -- 80 PLT -- 277 -- -- -- -- -- -- 237 -- 272 NA -- 140 -- -- 142 -- 142 -- 140 -- 138 POTASSIUM -- 3.6 -- -- 3.6 -- 4.3 -- 4.3 -- 3.5 CHLORIDE -- 109* -- -- 112* -- 110* -- 108* -- 105 CO2 -- 22 -- -- 19* -- 20* -- 25 -- 21* BUN -- 9.8 -- -- 9.6 -- 8.8 -- 7.4* -- 11.7 CR -- 1.30* -- -- 1.32* -- 1.29* -- 1.32* -- 1.37* ANIONGAP -- 9 -- -- 11 -- 12 -- 7 -- 12 MIMI -- 8.7* -- -- 8.5* -- 8.6* -- 8.9 -- 9.4 GLC 126* 97 93 < > 103* < > 147* < > 105* < > 127* ALBUMIN -- 3.6 -- -- 3.4* -- 3.7 -- 3.6 -- 3.9 PROTTOTAL -- 5.6* -- -- 5.4* -- 5.8* -- 5.9* -- 6.3* BILITOTAL -- 0.2 -- -- 0.3 -- 0.2 -- 0.3 -- 0.3 ALKPHOS -- 39* -- -- 40 -- 46 -- 48 -- 58 ALT -- 7 -- -- 7 -- 8 -- 9 -- 11 AST -- 16 -- -- 16 -- 15 -- 20 -- 20 LIPASE -- -- -- -- -- -- 21 -- -- -- 27 < > = values in this interval not displayed. Recent Labs Lab Test 05/02/24 1523 05/02/24 1323 NT-PROBNP, INPATIENT -- 15,821* TROPONIN T HIGH SENSITIVITY 44* 45* Recent Labs Lab 05/06/24 1201 05/06/24 0836 05/06/24 0801 05/06/24 0155 05/05/24 2140 05/05/24 1800 GLC 126* 97 93 107* 94 201* Recent Labs Lab Test 05/02/24 1323 A1C 6.1* No results for input(s): INR, [id number] in the last 168 hours. Recent Labs Lab 05/06/24 0836 05/03/24 1106 05/02/24 1711 05/02/24 1337 05/02/24 1326 05/02/24 1323 WBC 8.7 6.4 -- -- -- 7.7 LACT -- -- 0.6* -- 2.1* -- [id number] -- -- -- Negative -- -- MICRO: CULTURES (INCLUDING BLOOD AND URINE): Recent Labs Lab 05/03/24 1939 05/02/24 1711 CULTURE No Growth No growth after 3 days No results found for this or any previous visit (from the past 24 hour(s)). Medications All medications were reviewed. DEC. Infusions: Current Facility-Administered Medications Medication Dose Route Frequency Provider Last Rate Last Admin Scheduled Medications: Current Facility-Administered Medications Medication Dose Route Frequency Provider Last Rate Last Admin carvedilol (COREG) tablet 3.125 mg 3.125 mg Oral BID w/meals Rosalee Anglin DO 3.125 mg at 05/06/24 0807 cefTRIAXone (ROCEPHIN) 2 g vial to attach to NS 100 ml bag for ADULTS or NS 50 ml bag for PEDS 2 g Intravenous Q24H Chelly Berkowitz MD 100 mL/hr at 05/06/24 1010 2 g at 05/06/24 1010 heparin ANTICOAGULANT injection 5,000 Units 5,000 Units Subcutaneous Q8H Rosalee Gilmore DO insulin aspart (NovoLOG) injection (RAPID ACTING) 1-7 Units Subcutaneous TID AC Jacques Muñiz MD 2 Units at 05/05/24 1810 insulin aspart (NovoLOG) injection (RAPID ACTING) 1-5 Units Subcutaneous At Bedtime Rachel Muñiz MD insulin aspart (NovoLOG) injection (RAPID ACTING) 4 Units Subcutaneous TID w/meals Jacques Muñiz MD 4 Units at 05/05/24 1811 insulin glargine (LANTUS PEN) injection 10 Units 10 Units Subcutaneous QAM Jacques Muñiz MD 10 Units at 05/06/24 1022 levothyroxine (SYNTHROID/LEVOTHROID) tablet 75 mcg 75 mcg Oral or NG Tube Daily Jacques Muñiz MD 75 mcg at 05/06/24 0808 Lidocaine (LIDOCARE) 4 % Patch 1-3 patch 1-3 patch Transdermal Q24H Rosalee Gilmore DO 1 patch at 05/06/24 1052 mycophenolate (GENERIC EQUIVALENT) capsule 500 mg 500 mg Oral BID Jacques Muñiz MD 500 mg at 05/06/24 0809 predniSONE (DELTASONE) tablet 5 mg 5 mg Oral Daily Slava Rodriguez MD 5 mg at 05/06/24 0807 sodium chloride (PF) 0.9% PF flush 3 mL 3 mL Intracatheter Q8H Jacques Muñiz MD 3 mL at 05/06/24 0517 tacrolimus (GENERIC EQUIVALENT) capsule 2 mg 2 mg Oral QAM Jacques Muñiz MD 2 mg at 05/06/24 0808 And tacrolimus (GENERIC EQUIVALENT) capsule 1 mg 1 mg Oral QPM Jacques Muñiz MD 1 mg at 05/05/242102 [Held by provider] traZODone (DESYREL) tablet 50-100 mg 50-100 mg Oral At Bedtime Jacques Muñiz MD PRN Medications: Current Facility-Administered Medications Medication Dose Route Frequency Provider Last Rate Last Admin acetaminophen (TYLENOL) tablet 650 mg 650 mg Oral Q4H PRN Jacques Muñiz MD 650 mg at 05/06/24 1047 Or acetaminophen (TYLENOL) Suppository 650 mg 650 mg Rectal Q4H PRN Jacques Muñiz MD calcium carbonate (TUMS) chewable tablet 1,000 mg 1,000 mg Oral 4x Daily PRN Jacques Muñiz MD cyclobenzaprine (FLEXERIL) tablet 5 mg 5 mg Oral Q8H PRN Rosalee Anglin DO 5 mg at 05/04/24 1008 glucose gel 15-30 g 15-30 g Oral Q15 Min PRN Jacques Muñiz MD Or dextrose 50 % injection 25-50 mL 25-50 mL Intravenous Q15 Min PRN Jacques Muñiz MD Or glucagon injection 1 mg 1 mg Subcutaneous Q15 Min PRN Jacques Muñiz MD lidocaine (LMX4) cream Topical Q1H PRN Jacques Muñiz MD lidocaine 1 % 0.1-1 mL 0.1-1 mL Other Q1H PRN Jacques Muñiz MD naloxone (NARCAN) injection 0.2 mg 0.2 mg Intravenous Q2 Min PRN Rosalee Anglin DO Or naloxone (NARCAN) injection 0.4 mg 0.4 mg Intravenous Q2 Min PRN Rosalee Anglin DO Or naloxone (NARCAN) injection 0.2 mg 0.2 mg Intramuscular Q2 Min PRN Rosalee Gilmore DO Or naloxone (NARCAN) injection 0.4 mg 0.4 mg Intramuscular Q2 Min PRN Rosalee Gilmore DO ondansetron (ZOFRAN ODT) ODT tab 4 mg 4 mg Oral Q6H PRN Jacques Muñiz MD Or ondansetron (ZOFRAN) injection 4 mg 4 mg Intravenous Q6H PRN Jacques Muñiz MD oxyCODONE (ROXICODONE) tablet 10 mg 10 mg Oral Q4H PRN Rosalee Anglin, DO 10 mg at 05/06/24 1248 oxyCODONE (ROXICODONE) tablet 5 mg 5 mg Oral Q4H PRN Rosalee Anglin, DO 5 mg at 05/05/24 1802 prochlorperazine (COMPAZINE) injection 5 mg 5 mg Intravenous Q6H PRN Jacques Muñiz MD Or prochlorperazine (COMPAZINE) tablet 5 mg 5 mg Oral Q6H PRN Jacques Muñiz MD Or prochlorperazine (COMPAZINE) suppository 12.5 mg 12.5 mg Rectal Q12H PRN Jacques Muñiz MD senna-docusate (SENOKOT-S/PERICOLACE) 8.6-50 MG per tablet 1 tablet 1 tablet Oral BID PRN Jacques Muñiz MD Or senna-docusate (SENOKOT-S/PERICOLACE) 8.6-50 MG per tablet 2 tablet 2 tablet Oral BID PRN Jacques Muñiz MD sodium chloride (PF) 0.9% PF flush 3 mL 3 mL Intracatheter q1 min prn Jacques Muñiz MD 3mL at 05/06/24 1020 zolpidem (AMBIEN) tablet 5 mg 5 mg Oral At Bedtime PRN Rosalee Anglin, DO 5 mg at 05/04/24 2300 * Tye Calle MD - 05/05/2024 2:39 PM CDT [facility] Internal Medicine Hospitalist Progress Note 05/05/2024 I evaluated patient on the above date. Tye Calle Jr., MD [phone] (p) Text Page Vocera [New actions/orders today (05/05/2024) are underlined in the assessment and plan. 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 CT scan of the chest/abdomen/pelvis which showed findings concerning for an obstructive process in the biliary tree as well as potential infection involving her transplanted kidney. Accepted at [facility], but no beds and subsequently admitted to [facility]. On initial evaluation, pt was afebrile, normotensive, tachycardic. ECG showed SR with diffuse TWI, QTc 581 ms. Labs notable for CBC with normal; BMP with bicarb 21, cr 1.37, AG normal, magnesium 1.6;LFT's unremarkable; lactate 2.1; troponin 45, NTP-BNP 44207; UA negative; COVID-19, influenza and RSV negative. CT CAP showed postsurgical changes of liver transplant, worsening intrahepatic and extrahepatic biliary ductal dilatation, increasing dilatation of the main pancreatic duct, findings may be secondaryto an obstructive process at the ampulla; right lower quadrant renal transplant demonstrates new area of patchy hyperenhancement with a complex hypoattenuating collection, findings could represent pyelonephritis with an associated renal abscess; no evidence of acute pulmonary embolism. Renal transplant US showed normal sonographic appearance of the right renal allograft, specifically, there are no fluid collections in the renal allograft to account for the finding on the CT earliertoday; patent allograft renal artery and vein without stenosis; borderline resistive indices in therenal allograft. Pyelonephritis and abscess involving transplanted kidney (right). Lactic acidosis, suspect related to infection, resolved. History of kidney transplant (2016). Chronic kidney disease, stage III. * Status post dual liver kidney transplant on December 30, 2016 at [facility] in [place]. * Initial presentation and imaging as above. Accepted for transfer to [facility], but ultimately not beds, so admitted here. Started on IV piperacillin-tazobactam on admit. BC 05/02 NGTD. Nephrology and GI consulted on admit. * On 05/03, UC no growth. Started on stress dose IV steroids and IVF's. MRCP also showed findings suspicious for a 2.2 cm abscess in the ventral aspect of the patient's right pelvic transplant kidney. * On 05/04, steroids changed back to PO. * On 05/05, prednisone changed to home dose and IVF's stopped. Recent Labs Lab 05/04/24 0750 05/03/24 1106 05/02/24 1711 05/02/24 1326 05/02/24 1323 WBC -- 6.4 -- -- 7.7 LACT -- -- 0.6* 2.1* -- CRPI <3.00 -- -- -- -- Recent Labs Lab 05/05/24 0824 05/04/24 0750 05/03/24 1106 05/02/24 1323 CR 1.32* 1.29* 1.32* 1.37* Estimated Creatinine Clearance: 34.4 mL/min (A) (based on SCr of 1.32 mg/dL (H)). - Consult ID per Nephrology rec's, appreciate help. - Continue piperacillin-tazobactam (started 05/02). - Continue mycophenolate, prednisone and tacrolimus. - Continue to monitor BMP - repeat in am. - Avoid nephrotoxic medications. - Appreciate Nephrology help. - Transfer to [facility] once bed available. History of liver transplant (2017). Intra and extrahepatic bile duct and pancreatic duct dilatation on imaging. 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 Follows with the transplant clinic at the [facility] as an outpatient. * Initial presentation and imaging as above. GI consulted on admit. * On 05/03, MRCP showed intrahepatic and extrahepatic biliary ductal dilatation; redemonstrated diffuse pancreatic ductal dilatation, no obstructing stone, an ampullary stricture may be present, givenabnormal liver function tests, ERCP should be considered in further evaluation. Started on stress IV steroids as above. * On 05/04, converted to PO steroids. Recent Labs Lab 05/05/24 0824 05/04/24 0750 05/03/24 1106 05/02/24 1501 05/02/24 1323 ALBUMIN 3.4* 3.7 3.6 -- 3.9 BILITOTAL 0.3 0.2 0.3 -- 0.3 ALT 7 8 9 -- 11 AST 16 15 20 -- 20 ALKPHOS 40 46 48 -- 58 PROTEIN -- -- -- Negative -- LIPASE -- 21 -- -- 27 CR 1.32* 1.29* 1.32* -- 1.37* - Continue mycophenolate, prednisone and tacrolimus. - Plan EUS/ERCP, once renal abscess treated/addressed. - Appreciate GI help. - Plan transfer to [facility] when able. Troponin elevation, suspect demand ischemia (type 2 NSTEMI) related to above issues including infection. Elevated BNP, unclear significance. * Initial presentation as above. Troponin 45 and BNP 04893 on admit. Pt was dyspneic with recent COVID. CT chest negative for PE, also no airspace consolidation or pleural effusion. On admit, lungs clear to auscultation, no lower extremity edema; weight was down about 7 pounds over the past week [employer]. Recent Labs Lab 05/02/24 1523 05/02/24 1323 NTBNPI -- 15,821* CTROPT 44* 45* - Continue to monitor clinically. Right upper lobe pulmonary nodule measuring 3 mm. * CT on admit also showed right upper lobe pulmonary nodule measuring 3 mm; for low-risk patients, no follow-up needed; for high-risk patients, optional follow- up at 12 months. - Follow-up outpatient. Hypertension (benign essential). [[employer]: amlodipine 5 mg daily; carvedilol 12.5 mg 1-2x/day.] * On admit, noted that patient had not been taking [carvedilol] recently as she did not feel like she needed it. Amlodipine and carvedilol held on admit. * On 05/04, noted to be tachycardic and carvedilol restarted. - Continue carvedilol 3.125 mg BID. - Continue to hold [employer] amlodipine. Left abd/back pain. * Noted left abdominal/back pain for the last 2 months [employer]. - Continue lidocaine patch, PRN acetaminophen, PRN cyclobenzaprine PRN oxycodone; minimize opioids as able. - Continue PRN aqua K pad. Age-indeterminate superior endplate fracture of T3 with mild height loss. * CT on admit also showed age-indeterminate superior endplate fracture of T3 with mild height loss. - Continue to monitor clinically. Diabetes mellitus type 2. [[employer]: glargine 20U qam; aspart 8U TID + sliding scale with meals; semaglutide 2 mg q7d.] * Hemoglobin A1c 6.1% on 05/02/2024. - Continue moderate carbohydrate diet. - Continue glargine 10U qam. - Continue aspart 8U TID with meals. - Continue aspart ISS (medium). - Continue PRN hypoglycemia protocol. Prolonged QTc, possibly med effect. * Initial presentation as above.QTc 581 ms on admit. [employer] trazodone held on admit. * QTc 536 ms on 05/03 * QTc 506 ms on 05/04. * QTc 503 ms on 05/05. - Continue to monitor. - Continue to hold [employer] trazodone. Insomnia. * [employer] trazodone held on admit due to prolonged QTc. * Noted pt has used zolpidem in the past but stopped being effective so transitioned to trazadone. Did not want to try melatonin. * Started on PRN zolpidem. - Continue PRN zolpidem 5 mg at bedtime. Hypothyroidism. - Continue levothyroxine. Recent COVID-19 infection. * Developed fever, cough, GI symptoms on 04/18/2024 and had a positive home COVID test on 04/19/24. * On admit, noted fever and GI symptoms improved, still had a cough and some shortness of breath - mainly with exertion. * Initial presentation as above. COVID-19 PCR negative on admit. * On 05/04,she confirmed that she did not take nirmatrelvir and ritonavir (Paxlovid) during her recent COVID infection. - Continue to monitor clinically. Fibromyalgia. Chronic pain syndrome. - Noted. Clinically Significant Risk Factors # Hypocalcemia: Lowest Ca = 8.5 mg/dL in last 2 days, will monitor and replace as appropriate # Hypoalbuminemia: Lowest albumin = 3.4 g/dL at 05/05/2024 8:24 AM, will monitor as appropriate # Hypertension: Noted on problem list Diet: Combination Diet Moderate Consistent Carb (60 g CHO per Meal) Diet Prophylaxis: PCD's and ambulation Haji Catheter: Not present Lines: None Code Status: Full Code Disposition Plan Medically Ready for Discharge: Anticipated in 1-2 Days Expected discharge to home pending above. Entered: Tye Calle MD 05/05/2024, 2:39 PM TIME SPENT: I spent approximately 50 minutes bedside and on the inpatient unit today managing the care of patient. Over 50% of my time on the unit was spent in extensive chart review, counseling the patient/family and/or coordinating care regarding services listed in this note. Interval History Doing OK. Arnaud abdominal pain. * Data reviewed today: I reviewed all new labs and imaging over the last 24 hours. I personally reviewed the ECG tracing showing findings as described above in the A/P. Physical Exam Most recent vitals: , Blood pressure 135/72, pulse 80, temperature 98.1 ??F (36.7 ??C), temperature source Oral, resp. rate 18, height 1.6 m (5' 3), weight 55.8 kg (123 lb), SpO2 99%. O2 Device: None (Room air) Vitals: 05/02/24 1319 Weight: 55.8 kg (123 lb) Vital signs with ranges: Temp: [98.1 ??F (36.7 ??C)-98.4 ??F (36.9 ??C)] 98.1 ??F (36.7 ??C) Pulse: [72-89] 80 Resp: [18] 18 BP: (120-135)/(62-72) 135/72 SpO2: [96 %-99 %] 99 % Patient Vitals for the past 24 hrs: BP Temp Temp src Pulse Resp SpO2 05/05/24 1037 135/72 -- -- 80 -- -- 05/05/24 0800 120/68 98.1 ??F (36.7 ??C) Oral 89 18 99 % 05/04/24 1825 121/62 -- -- 72 -- -- 05/04/24 1630 122/62 98.4 ??F (36.9 ??C) Oral 82 18 96 % I/O's last 24 hours: I/O last 3 completed shifts: In: 360 [P.O.:360] Out: 700 [Urine:700] Constitutional: awake, alert, oriented, pleasant, conversant Head: Eyes: ENT: Neck: Cardiovascular: regular rate and rhythm; no murmurs, rubs or gallops Lungs: diminished in the bases, no crackles or wheezes Gastrointestinal/Abdomen: soft, tender right side, mildly, no rebound, no guarding, + bowel sounds : Musculoskeletal: Skin/Extremities: Neurologic: Psychiatric: Hematologic/Lymphatic/Immunologic: Data Labs reviewed. Recent Labs Lab 05/05/24 1335 05/05/24 0916 05/05/24 0824 05/04/24 0922 05/04/24 0750 05/03/24 1213 05/03/24 1106 05/02/24 2149 05/02/24 1323 WBC -- -- -- -- -- -- 6.4 -- 7.7 HGB -- -- -- -- -- -- 11.1* -- 13.2 MCV -- -- -- -- -- -- 80 -- 80 PLT -- -- -- -- -- -- 237 -- 272 NA -- -- 142 -- 142 -- 140 -- 138 POTASSIUM -- -- 3.6 -- 4.3 -- 4.3 -- 3.5 CHLORIDE -- -- 112* -- 110* -- 108* -- 105 CO2 -- -- 19* -- 20* -- 25 -- 21* BUN -- -- 9.6 -- 8.8 -- 7.4* -- 11.7 CR -- -- 1.32* -- 1.29* -- 1.32* -- 1.37* ANIONGAP -- -- 11 -- 12 -- 7 -- 12 MIMI -- -- 8.5* -- 8.6* -- 8.9 -- 9.4 GLC 91 104* 103* < > 147* < > 105* < > 127* ALBUMIN -- -- 3.4* -- 3.7 -- 3.6 -- 3.9 PROTTOTAL -- -- 5.4* -- 5.8* -- 5.9* -- 6.3* BILITOTAL -- -- 0.3 -- 0.2 -- 0.3 -- 0.3 ALKPHOS -- -- 40 -- 46 -- 48 -- 58 ALT -- -- 7 -- 8 -- 9 -- 11 AST -- -- 16 -- 15 -- 20 -- 20 LIPASE -- -- -- -- 21 -- -- -- 27 < > = values in this interval not displayed. Recent Labs Lab Test 05/02/24 1523 05/02/24 1323 NT-PROBNP, INPATIENT -- 15,821* TROPONIN T HIGH SENSITIVITY 44* 45* Recent Labs Lab 05/05/24 1335 05/05/24 0916 05/05/24 0824 05/05/24 0227 05/04/24 2243 05/04/24 1818 GLC 91 104* 103* 140* 144* 164* Recent Labs Lab Test 05/02/24 1323 A1C 6.1* No results for input(s): INR, [id number] in the last 168 hours. Recent Labs Lab 05/03/24 1106 05/02/24 1711 05/02/24 1337 05/02/24 1326 05/02/24 1323 WBC 6.4 -- -- -- 7.7 LACT -- 0.6* -- 2.1* -- [id number] -- -- Negative -- -- MICRO: CULTURES (INCLUDING BLOOD AND URINE): Recent Labs Lab 05/03/24 1939 05/02/24 1711 CULTURE No Growth No growth after 2 days No results found for this or any previous visit (from the past 24 hour(s)). Medications All medications were reviewed. MAR. Infusions: Current Facility-Administered Medications Medication Dose Route Frequency Provider Last Rate Last Admin Scheduled Medications: Current Facility-Administered Medications Medication Dose Route Frequency Provider Last Rate Last Admin carvedilol (COREG) tablet 3.125 mg 3.125 mg Oral BID w/meals Rosalee Anglin DO 3.125 mg at 05/05/24 1037 heparin ANTICOAGULANT injection 5,000 Units 5,000 Units Subcutaneous Q8H Rosalee Gilmore DO insulin aspart (NovoLOG) injection (RAPID ACTING) 1-7 Units Subcutaneous TID AC Jacques Muñiz MD 1 Units at 05/04/24 1837 insulin aspart (NovoLOG) injection (RAPID ACTING) 1-5 Units Subcutaneous At Bedtime Rachel Muñiz MD insulin aspart (NovoLOG) injection (RAPID ACTING) 4 Units Subcutaneous TID w/meals Jacques Muñiz MD 4 Units at 05/05/24 1045 insulin glargine (LANTUS PEN) injection 10 Units 10 Units Subcutaneous QAM Jacques Muñiz,MD 10 Units at 05/05/24 1045 levothyroxine (SYNTHROID/LEVOTHROID) tablet 75 mcg 75 mcg Oral or NG Tube Daily Jacques Muñiz MD 75 mcg at 05/05/24 1038 Lidocaine (LIDOCARE) 4 % Patch 1-3 patch 1-3 patch Transdermal Q24H Rosalee Gilmore DO 1 patch at 05/04/24 0934 mycophenolate (GENERIC EQUIVALENT) capsule 500 mg 500 mg Oral BID Jacques Muñiz MD 500 mg at 05/05/24 1039 piperacillin-tazobactam (ZOSYN) 2.25 g vial to attach to NS 100 ml bag 2.25 g Intravenous Q6H Jacques Muñiz MD 2.25 g at 05/05/24 0556 [START ON 05/06/2024] predniSONE (DELTASONE) tablet 5 mg 5 mg Oral Daily Slava Rodriguez MD sodium chloride (PF) 0.9% PF flush 3 mL 3 mL Intracatheter Q8H Jacques Muñiz MD 3 mL at 05/03/24 1310 tacrolimus (GENERIC EQUIVALENT) capsule 2 mg 2 mg Oral [facility] Jacques Muñiz MD 2 mg at 05/04/24 0933 And tacrolimus (GENERIC EQUIVALENT) capsule 1 mg 1 mg Oral QPM Jacques Muñiz MD 1 mg at 05/04/242035 [Held by provider] traZODone (DESYREL) tablet 50-100 mg 50-100 mg Oral At Bedtime Jacques Muñiz MD PRN Medications: Current Facility-Administered Medications Medication Dose Route Frequency Provider Last Rate Last Admin acetaminophen (TYLENOL) tablet 650 mg 650 mg Oral Q4H PRN Jacques Muñiz MD 650 mg at 05/03/242012 Or acetaminophen (TYLENOL) Suppository 650 mg 650 mg Rectal Q4H PRN Jacques Muñiz MD calcium carbonate (TUMS) chewable tablet 1,000 mg 1,000 mg Oral 4x Daily PRN Jacques Muñiz MD cyclobenzaprine (FLEXERIL) tablet 5 mg 5 mg Oral Q8H PRN Rosalee Anglin DO 5 mg at 05/04/24 1008 glucose gel 15-30 g 15-30 g Oral Q15 Min PRN Jacques Muñiz MD Or dextrose 50 % injection 25-50 mL 25-50 mL Intravenous Q15 Min PRN Jacques Muñiz MD Or glucagon injection 1 mg 1 mg Subcutaneous Q15 Min PRN Jacques Muñiz MD lidocaine (LMX4) cream Topical Q1H PRN Jacques Muñiz MD lidocaine 1 % 0.1-1 mL 0.1-1 mL Other Q1H PRN Jacques Muñiz MD naloxone (NARCAN) injection 0.2 mg 0.2 mg Intravenous Q2 Min PRN Rosalee Anglin DO Or naloxone (NARCAN) injection 0.4 mg 0.4 mg Intravenous Q2 Min PRN Rosalee Anglin DO Or naloxone (NARCAN) injection 0.2 mg 0.2 mg Intramuscular Q2 Min PRN Rosalee Gilmore DO Or naloxone (NARCAN) injection 0.4 mg 0.4 mg Intramuscular Q2 Min PRN Rosalee Gilmore DO ondansetron (ZOFRAN ODT) ODT tab 4 mg 4 mg Oral Q6H PRN Jacques Muñiz MD Or ondansetron (ZOFRAN) injection 4 mg 4 mg Intravenous Q6H PRN Jacques Muñiz MD oxyCODONE (ROXICODONE) tablet 10 mg 10 mg Oral Q4H PRN Rosalee Anglin DO oxyCODONE (ROXICODONE) tablet 5 mg 5 mg Oral Q4H PRN Rosalee Anglin DO 5 mg at 05/04/24 1356 prochlorperazine (COMPAZINE) injection 5 mg 5 mg Intravenous Q6H PRN Jacques Muñiz MD Or prochlorperazine (COMPAZINE) tablet 5 mg 5 mg Oral Q6H PRN Jacques Muñiz MD Or prochlorperazine (COMPAZINE) suppository 12.5 mg 12.5 mg Rectal Q12H PRN Jacques Muñzi MD senna-docusate (SENOKOT-S/PERICOLACE) 8.6-50 MG per tablet 1 tablet 1 tablet Oral BID PRN Jacques Muñiz MD Or senna-docusate (SENOKOT-S/PERICOLACE) 8.6-50 MG per tablet 2 tablet 2 tablet Oral BID PRN Jacques Muñiz MD sodium chloride (PF) 0.9% PF flush 3 mL 3 mL Intracatheter q1 min prn Jacques Muñiz MD zolpidem (AMBIEN) tablet 5 mg 5 mg Oral At Bedtime PRN Rosalee Anglin, DO 5 mg at 05/04/24 2300 * Slava Rodriguez MD - 05/05/2024 11:43 AM CDT Renal Medicine Progress Note Assessment/Plan: 73 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 # ESRD s/p SLK tx with baseline allograft Sr ~ 1.1-1.2. Scr seems stable since admission. 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 On CT and MRI. -UA is bland -urine and blood cultures wo grwoth -Zosyn # FEN: No edema. Mild acidosis. On NS infusion # HTN: BP is controlled on low dose Coreg. Plan: # Decrease prednisone to 5 mg daily-home dose # Stop NS infusion # Would consult ID Interval History: Afebrile. VSS Scr is stable. On NS infusion at 50 ml/hr TAC 6-3-at target. On MMF and prednisone as well. She says her weakness, dizziness and SOB resolved. She wants to know what is going on. Medications and Allergies: Current Facility-Administered Medications Medication Dose Route Frequency Provider Last Rate Last Admin carvedilol (COREG) tablet 3.125 mg 3.125 mg Oral BID w/meals Rosalee Anglin, DO 3.125 mg at 05/05/24 1037 heparin ANTICOAGULANT injection 5,000 Units 5,000 Units Subcutaneous Q8H Rosalee Gilmore DO insulin aspart (NovoLOG) injection (RAPID ACTING) 1-7 Units Subcutaneous TID AC Jacques Muñiz MD 1 Units at 05/04/24 1837 insulin aspart (NovoLOG) injection (RAPID ACTING) 1-5 Units Subcutaneous At Bedtime Rachel Muñiz MD insulin aspart (NovoLOG) injection (RAPID ACTING) 4 Units Subcutaneous TID w/meals Jacques Muñiz MD 4 Units at 05/05/24 1045 insulin glargine (LANTUS PEN) injection 10 Units 10 Units Subcutaneous QAM Jacques Muñiz MD 10 Units at 05/05/24 1045 levothyroxine (SYNTHROID/LEVOTHROID) tablet 75 mcg 75 mcg Oral or NG Tube Daily Jacques Muñiz MD 75 mcg at 05/05/24 1038 Lidocaine (LIDOCARE) 4 % Patch 1-3 patch 1-3 patch Transdermal Q24H Rosalee Gilmore DO 1 patch at 05/04/24 0934 mycophenolate (GENERIC EQUIVALENT) capsule 500 mg 500 mg Oral BID Jacques Muñiz MD 500 mg at 05/05/24 1039 piperacillin-tazobactam (ZOSYN) 2.25 g vial to attach to NS 100 ml bag 2.25 g Intravenous Q6H Jacques Muñiz MD 2.25 g at 05/05/24 0556 predniSONE (DELTASONE) tablet 10 mg 10 mg Oral Daily Brenton Diez MD 10 mg at 05/05/24 1037 sodium chloride (PF) 0.9% PF flush 3 mL 3 mL Intracatheter Q8H Jacques Muñiz MD 3 mL at 05/03/24 1310 tacrolimus (GENERIC EQUIVALENT) capsule 2 mg 2 mg Oral QAM Jacques Muñiz MD 2 mg at 05/04/24 0933 And tacrolimus (GENERIC EQUIVALENT) capsule 1 mg 1 mg Oral QPM Jacques Muñiz MD 1 mg at 05/04/246 [Held by provider] traZODone (DESYREL) tablet 50-100 mg 50-100 mg Oral At Bedtime Jacques Muñiz MD No Known Allergies Physical Exam: Vitals were reviewed , Blood pressure 135/72, pulse 80, temperature 98.1 ??F (36.7 ??C), temperature source Oral, resp. rate 18, height 1.6 m (5' 3), weight 55.8 kg (123 lb), SpO2 99%. Wt Readings from Last 3 Encounters: 05/02/24 55.8 kg (123 lb) 01/12/24 62 kg (136 lb 11.2 oz) 01/11/24 61.2 kg (135 lb) Intake/Output Summary (Last 24 hours) at 05/05/2024 1143 Last data filed at 05/05/2024 1000 Gross per 24 hour Intake 360 ml Output -- Net 360 ml GENERAL APPEARANCE: pleasant, NAD, alert HEENT: Eyes/ears/nose/neck grossly normal RESP: lungs cta b c good efforts, no crackles, rhonchi or wheezes CV: RRR, nl S1/S2 ABDOMEN: Soft, NT. No pain over the R LLQ-where the transplanted kidney is located. EXTREMITIES/SKIN: no rashes/lesions on observed skin; no kateryna NEURO/PSYCH: Pleasant, conversing normally Data: CBC RESULTS: Recent Labs Lab 05/03/24 1106 05/02/24 1323 WBC 6.4 7.7 RBC 4.38 4.97 HGB 11.1* 13.2 HCT 35.2 39.7 PLT 237 272 Basic Metabolic Panel: Recent Labs Lab 05/05/24 0916 05/05/24 0824 05/05/24 0227 05/04/24 2243 05/04/24 1818 05/04/24 1310 05/04/24 0922 05/04/24 0750 05/03/24 1213 05/03/24 1106 05/02/24 2149 05/02/24 1323 NA -- 142 -- -- -- -- -- 142 -- 140 -- 138 POTASSIUM -- 3.6 -- -- -- -- -- 4.3 -- 4.3 -- 3.5 CHLORIDE -- 112* -- -- -- -- -- 110* -- 108* -- 105 CO2 -- 19* -- -- -- -- -- 20* -- 25 -- 21* BUN -- 9.6 -- -- -- -- -- 8.8 -- 7.4* -- 11.7 CR -- 1.32* -- -- -- -- -- 1.29* -- 1.32* -- 1.37* GLC 104* 103* 140* 144* 164* 108* < > 147* < > 105* < > 127* MIMI -- 8.5* -- -- -- -- -- 8.6* -- 8.9 -- 9.4 < > = values in this interval not displayed. INRNo lab results found in last 7 days. Attestation: I have reviewed today's relevant vital signs, notes, medications, labs and imaging. Slava Rodriguez MD [facility] Nephrology Office phone :[phone] Pager: [phone] * Maurizio Palmer PA - 05/05/2024 9:57 AM CDT [facility] Gastroenterology Progress Note Catarina Almeida Date of : 1950 Age: [age] year old Assessment and Plan: Catarina Almeida is a 73 year old female with a history of hypothyroidism, chronic kidney disease, and diabetes who presents for evaluation of generalized weakness. She does have a history of both liver and renal transplant about 7 years ago. Patient reports that for the last 2 weeks she has felt week since she had COVID, and 5 days ago it worsened severely coinciding with shortness of breath, a nonproductive cough, and dizziness. She adds that 2-3 days ago she also experienced an episode of chest pressure with no radiation which has since gone away. Patient has left upper quadrant abdominal pain on presentation. Abnormal CT findings, Dilated biliary and pancreatic ductal system Possible Kidney Abscess --Continue IV antibiotics --Follow blood cultures - So far NGTD --MRCP: Intrahepatic and extrahepatic biliary ductal dilatation. Redemonstrated diffuse pancreatic ductal dilatation. No obstructing stone. 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 --Possible EGD and EUS once kidney abscess is treated and patient stabilized. --Labs stable. LFTs unremarkable, CRP negative and Lipase wnl. --Conservative monitoring for now. 05/02/24 13:23 05/03/24 11:06 05/04/24 07:50 05/05/24 08:24 Alkaline Phosphatase 58 48 46 40 ALT 11 9 8 7 AST 20 20 15 16 Bilirubin Direct <0.20 Bilirubin Total 0.3 0.3 0.2 0.3 CRP Inflammation <3.00 Interval History: doing well; no cp, sob, n/v/d, or abd pain. Review of Systems: C: NEGATIVE for fever, chills, change in weight E/M: NEGATIVE for ear, mouth and throat problems R: NEGATIVE for significant cough or SOB CV: NEGATIVE for chest pain, palpitations or peripheral edema Medications: I have reviewed this patient's current medications Current Facility-Administered Medications Medication Dose Route Frequency Provider Last Rate Last Admin carvedilol (COREG) tablet 3.125 mg 3.125 mg Oral BID w/meals Rosalee Anglin DO 3.125 mg at 05/04/24 1825 heparin ANTICOAGULANT injection 5,000 Units 5,000 Units Subcutaneous Q8H Rosalee Gilmore DO insulin aspart (NovoLOG) injection (RAPID ACTING) 1-7 Units Subcutaneous TID AC Jacques Muñiz MD 1 Units at 05/04/24 1837 insulin aspart (NovoLOG) injection (RAPID ACTING) 1-5 Units Subcutaneous At Bedtime Rachel Muñiz MD insulin aspart (NovoLOG) injection (RAPID ACTING) 4 Units Subcutaneous TID w/meals Jacques Muñiz MD 4 Units at 05/04/24 1838 insulin glargine (LANTUS PEN) injection 10 Units 10 Units Subcutaneous QAM Jacques Muñiz MD 10 Units at 05/04/24 0935 levothyroxine (SYNTHROID/LEVOTHROID) tablet 75 mcg 75 mcg Oral or NG Tube Daily Jacques Muñiz MD 75 mcg at 05/04/24 0933 Lidocaine (LIDOCARE) 4 % Patch 1-3 patch 1-3 patch Transdermal Q24H Rosalee Gilmore DO 1 patch at 05/04/24 0934 mycophenolate (GENERIC EQUIVALENT) capsule 500 mg 500 mg Oral BID Jacques Muñiz MD 500 mg at 05/04/242035 piperacillin-tazobactam (ZOSYN) 2.25 g vial to attach to NS 100 ml bag 2.25 g Intravenous Q6H Jacques Muñiz MD 2.25 g at 05/05/24 0556 predniSONE (DELTASONE) tablet 10 mg 10 mg Oral Daily Brenton Diez MD 10 mg at 05/04/24 0956 sodium chloride (PF) 0.9% PF flush 3 mL 3 mL Intracatheter Q8H Jacques Muñiz MD 3 mL at 05/03/24 1310 tacrolimus (GENERIC EQUIVALENT) capsule 2 mg 2 mg Oral QAM Jacques Muñiz MD 2 mg at 05/04/24 0933 And tacrolimus (GENERIC EQUIVALENT) capsule 1 mg 1 mg Oral QPM Jacques Muñiz MD 1 mg at 05/04/242035 [Held by provider] traZODone (DESYREL) tablet 50-100 mg 50-100 mg Oral At Bedtime Jacques Muñiz MD Physical Exam: Vitals were reviewed Vital Signs with Ranges Temp: [98.1 ??F (36.7 ??C)-98.4 ??F (36.9 ??C)] 98.1 ??F (36.7 ??C) Pulse: [72-89] 89 Resp: [18] 18 BP: (120-122)/(62-68) 120/68 SpO2: [96 %-99 %] 99 % I/O last 3 completed shifts: In: 360 [P.O.:360] Out: 700 [Urine:700] Constitutional: Alert, oriented, Cooperative, lying in bed in NAD. Respiratory: Lungs CTAB. no labored breathing. Cardiovascular: Heart RRR GI: Abdomen soft, NT/ND and with normoactive BS Skin/Integumen: Warm, dry, non-diaphoretic. Data: I reviewed the patient's new clinical lab test results. Recent Labs Lab Test 05/03/24 1106 05/02/24 1323 01/12/24 1019 WBC 6.4 7.7 6.1 HGB 11.1* 13.2 12.3 MCV 80 80 81 PLT 237 272 187 Recent Labs Lab Test 05/05/24 0824 05/04/24 0750 05/03/24 1106 POTASSIUM 3.6 4.3 4.3 CHLORIDE 112* 110* 108* CO2 19* 20* 25 BUN 9.6 8.8 7.4* ANIONGAP 11 12 7 Recent Labs Lab Test 05/05/24 0824 05/04/24 0750 05/03/24 1106 05/02/24 1501 05/02/24 1323 01/12/24 1019 08/21/23 1015 07/09/23 1036 ALBUMIN 3.4* 3.7 3.6 -- 3.9 < > -- 4.1 BILITOTAL 0.3 0.2 0.3 -- 0.3 < > -- 0.2 ALT 7 8 9 -- 11 < > -- 10 AST 16 15 20 -- 20 < > -- 16 PROTEIN -- -- -- Negative -- -- Negative Negative LIPASE -- 21 -- -- 27 -- -- -- < > = values in this interval not displayed. I reviewed the patient's new imaging results. All laboratory data reviewed All imaging studies reviewed by me. RUBIA Snyder, 05/04/2024 [facility] Office : [phone] (Dr. Vyas) * Brenton Diez MD - 05/04/2024 9:33 AM CDT [facility] Nephrology Progress Note Assessment & Plan 1. Dual organ transplant. She is followed at the [facility] both in the liver and the kidney service. She has been maintained on prednisone tacrolimus and CellCept. Her creatinine has now improved from 1.37 to 1.29 with hydration. Her last tacrolimus level was low. We will continue herCellCept and tacrolimus at current doses. She has a TAC level in process. She has been on stress dose steroid which she no longer seems to need. I will place her back on prednisone for now. I wonder how much of her presenting symptoms were a relative adrenal insufficiency. So I will place her on prednisone 10 mg daily instead of 5 mg that is her baseline. 2. Recent COVID. She does not appear to have respiratory symptoms at this point. 3. Hypertension: Her amlodipine and carvedilol are currently on hold. Will monitor her blood pressure and add these back as needed. Her current blood pressure is 132/60 with a pulse of 105. 4. Infectious diseases: She is on Zosyn. She had abnormal CT scan which suggested pyelonephritis orabscess in the right lower quadrant allograft. However on exam her right lower quadrant is benign when I palpate the allograft or like directly there is no tenderness. She does not have an elevated white count. Her urinalysis is negative for protein and blood and has no cells. Therefore pyelonephritis and or abscess are doubtful. We will send a urine culture however and await results of blood cultures. I agree with continuing Zosyn for now. Plan: Await cultures Stop stress dose steroid. Reduce IV to 50 mL/hr Prednisone 10 mg daily (higher than her usual 5 mg in case some of her symptoms are due to hypoadrenal ism. Gi to weight in on biliary findings. Transfer to [facility] ? Brenton Diez MD [facility] Nephrology [phone] Interval History Am I still going to [facility] ? Have you been consulting with the doctors at the [facility] ? Feels better than Mon and Tu this week. No pain now. When is comes it is LLQ and L flank pain. UA is normal. Urine and blood cultures in process. No F/S/C. Physical Exam Temp: 98.8 ??F (37.1 ??C) Temp src: Oral BP: 132/60 Pulse: 105 Resp: 18 SpO2: 94 % O2 Device: None (Room air) Vitals: 05/02/24 1319 Weight: 55.8 kg (123 lb) Vital Signs with Ranges Temp: [97.3 ??F (36.3 ??C)-98.8 ??F (37.1 ??C)] 98.8 ??F (37.1 ??C) Pulse: [85-105] 105 Resp: [18] 18 BP: (125-132)/(60-74) 132/60 SpO2: [94 %-96 %] 94 % I/O last 3 completed shifts: In: 720 [P.O.:720] Out: - GENERAL APPEARANCE: pleasant, NAD, a & o, does not look toxic. HEENT: Eyes/ears/nose/neck grossly normal RESP: lungs cta b c good efforts, no crackles, rhonchi or wheezes CV: RRR, nl S1/S2, no m/r/g ABDOMEN: o/s/nt/nd, bs present, No tenderness over RLQ renal allograft. EXTREMITIES/SKIN: no rashes/lesions; no edema Medications Current Facility-Administered Medications Medication Dose Route Frequency Provider Last Rate Last Admin sodium chloride 0.9 % infusion Intravenous Continuous TolinsJacques MD 100 mL/hr at 05/04/24 0358 New Bag at 05/04/24 0358 Current Facility-Administered Medications Medication Dose Route Frequency Provider Last Rate Last Admin insulin aspart (NovoLOG) injection (RAPID ACTING) 1-7 Units Subcutaneous TID AC Jacques Muñiz MD insulin aspart (NovoLOG) injection (RAPID ACTING) 1-5 Units Subcutaneous At Bedtime Rachel Muñiz MD insulin aspart (NovoLOG) injection (RAPID ACTING) 4 Units Subcutaneous TID w/meals Jacques Muñiz MD insulin glargine (LANTUS PEN) injection 10 Units 10 Units Subcutaneous QAM Jacques Muñiz MD 10 Units at 05/03/24 0909 levothyroxine (SYNTHROID/LEVOTHROID) tablet 75 mcg 75 mcg Oral or NG Tube Daily Jacques Muñiz MD 75 mcg at 05/03/24 0908 Lidocaine (LIDOCARE) 4 % Patch 1-3 patch 1-3 patch Transdermal Q24H Rosalee Gilmore DO mycophenolate (GENERIC EQUIVALENT) capsule 500 mg 500 mg Oral BID Jacques Muñiz MD 500 mg at 05/03/24 2230 piperacillin-tazobactam (ZOSYN) 2.25 g vial to attach to NS 100 ml bag 2.25 g Intravenous Q6H Jacques Muñiz MD 2.25 g at 05/04/24 0630 predniSONE (DELTASONE) tablet 5 mg 5 mg Oral Daily Brenton Diez MD sodium chloride (PF) 0.9% PF flush 3 mL 3 mL Intracatheter Q8H Jacques Muñiz MD 3 mL at 05/03/24 1310 tacrolimus (GENERIC EQUIVALENT) capsule 2 mg 2 mg Oral QAM Jacques Muñiz MD 2 mg at 05/03/24 0907 And tacrolimus (GENERIC EQUIVALENT) capsule 1 mg 1 mg Oral QPM Jacques Muñiz MD 1 mg at 05/03/24 2230 [Held by provider] traZODone (DESYREL) tablet 50-100 mg 50-100 mg Oral At Bedtime Jacques Muñiz MD Data BMP Recent Labs Lab 05/04/24 0922 05/04/24 0750 05/04/24 0204 05/03/24 2201 05/03/24 1213 05/03/24 1106 05/02/24 2149 05/02/24 1323 NA -- 142 -- -- -- 140 -- 138 POTASSIUM -- 4.3 -- -- -- 4.3 -- 3.5 CHLORIDE -- 110* -- -- -- 108* -- 105 MIMI -- 8.6* -- -- -- 8.9 -- 9.4 CO2 -- 20* -- -- -- 25 -- 21* BUN -- 8.8 -- -- -- 7.4* -- 11.7 CR -- 1.29* -- -- -- 1.32* -- 1.37* GLC 146* 147* 149* 158* < > 105* < > 127* < > = values in this interval not displayed. [email or web address](phos:4) CBC) Recent Labs Lab 05/03/24 1106 05/02/24 1323 WBC 6.4 7.7 HGB 11.1* 13.2 HCT 35.2 39.7 MCV 80 80 PLT 237 272 Recent Labs Lab 05/04/24 0750 AST 15 ALT 8 ALKPHOS 46 BILITOTAL 0.2 Attestation: I have reviewed today's relevant vital signs, notes, medications, labs and imaging. * Maurizio Palmer PA - 05/04/2024 9:27 AM CDT [facility] Gastroenterology Progress Note Catarina Almeida Date of : 1950 Age: [age] year old Assessment and Plan: Catarina Almeida is a 73 year old female with a history of hypothyroidism, chronic kidney disease, and diabetes who presents for evaluation of generalized weakness. She does have a history of both liver and renal transplant about 7 years ago. Patient reports that for the last 2 weeks she has felt week since she had COVID, and 5 days ago it worsened severely coinciding with shortness of breath, a nonproductive cough, and dizziness. She adds that 2-3 days ago she also experienced an episode of chest pressure with no radiation which has since gone away. Patient endorses left upper quadrant abdominal pain in the ED. Abnormal CT findings, Dilated biliary and pancreatic ductal system Possible Kidney Abscess Elevated BNP --Continue IV antibiotics --Follow blood cultures --MRCP: Intrahepatic and extrahepatic biliary ductal dilatation. Redemonstrated diffuse pancreatic ductal dilatation. No obstructing stone. 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 --Possible EGD and EUS once kidney abscess is treated --Follow labs, LFTs, Lipase and CRP Interval History: doing well; no cp, sob, n/v/d, or abd pain. Review of Systems: C: NEGATIVE for fever, chills, change in weight E/M: NEGATIVE for ear, mouth and throat problems R: NEGATIVE for significant cough or SOB CV: NEGATIVE for chest pain, palpitations or peripheral edema Medications: I have reviewed this patient's current medications Current Facility-Administered Medications Medication Dose Route Frequency Provider Last Rate Last Admin insulin aspart (NovoLOG) injection (RAPID ACTING) 1-7 Units Subcutaneous TID AC Jacques Muñiz MD insulin aspart (NovoLOG) injection (RAPID ACTING) 1-5 Units Subcutaneous At Bedtime Rachel Muñiz MD insulin aspart (NovoLOG) injection (RAPID ACTING) 4 Units Subcutaneous TID w/meals Jacques Muñiz MD insulin glargine (LANTUS PEN) injection 10 Units 10 Units Subcutaneous QAM Jacques Muñiz MD 10 Units at 05/03/24 0909 levothyroxine (SYNTHROID/LEVOTHROID) tablet 75 mcg 75 mcg Oral or NG Tube Daily Jacques Muñiz MD 75 mcg at 05/03/24 0908 Lidocaine (LIDOCARE) 4 % Patch 1-3 patch 1-3 patch Transdermal Q24H Rosalee Gilmore DO mycophenolate (GENERIC EQUIVALENT) capsule 500 mg 500 mg Oral BID Jacques Muñiz MD 500 mg at 05/03/24 2230 piperacillin-tazobactam (ZOSYN) 2.25 g vial to attach to NS 100 ml bag 2.25 g Intravenous Q6H Jacques Muñiz MD 2.25 g at 05/04/24 0630 predniSONE (DELTASONE) tablet 5 mg 5 mg Oral Daily Brenton Diez MD sodium chloride (PF) 0.9% PF flush 3 mL 3 mL Intracatheter Q8H Jacques Muñiz MD 3 mL at 05/03/24 1310 tacrolimus (GENERIC EQUIVALENT) capsule 2 mg 2 mg Oral QAM Jacques Muñiz MD 2 mg at 05/03/24 0907 And tacrolimus (GENERIC EQUIVALENT) capsule 1 mg 1 mg Oral QPM Jacques Muñiz MD 1 mg at 05/03/24 2230 [Held by provider] traZODone (DESYREL) tablet 50-100 mg 50-100 mg Oral At Bedtime Jacques Muñiz MD Physical Exam: Vitals were reviewed Vital Signs with Ranges Temp: [97.3 ??F (36.3 ??C)-98.8 ??F (37.1 ??C)] 98.8 ??F (37.1 ??C) Pulse: [85-105] 105 Resp: [18] 18 BP: (125-132)/(60-74) 132/60 SpO2: [94 %-96 %] 94 % I/O last 3 completed shifts: In: 720 [P.O.:720] Out: - Constitutional: Alert, oriented, Cooperative, lying in bed in NAD. Respiratory: Lungs CTAB. no labored breathing. Cardiovascular: Heart RRR GI: Abdomen soft, NT/ND and with normoactive BS Skin/Integumen: Warm, dry, non-diaphoretic. Data: I reviewed the patient's new clinical lab test results. Recent Labs Lab Test 05/03/24 1106 05/02/24 1323 01/12/24 1019 WBC 6.4 7.7 6.1 HGB 11.1* 13.2 12.3 MCV 80 80 81 PLT 237 272 187 Recent Labs Lab Test 05/04/24 0750 05/03/24 1106 05/02/24 1323 POTASSIUM 4.3 4.3 3.5 CHLORIDE 110* 108* 105 CO2 20* 25 21* BUN 8.8 7.4* 11.7 ANIONGAP 12 7 12 Recent Labs Lab Test 05/04/24 0750 05/03/24 1106 05/02/24 1501 05/02/24 1323 01/12/24 1019 08/21/23 1015 07/09/23 1036 ALBUMIN 3.7 3.6 -- 3.9 < > -- 4.1 BILITOTAL 0.2 0.3 -- 0.3 < > -- 0.2 ALT 8 9 -- 11 < > -- 10 AST 15 20 -- 20 < > -- 16 PROTEIN -- -- Negative -- -- Negative Negative LIPASE 21 -- -- 27 -- -- -- < > = values in this interval not displayed. I reviewed the patient's new imaging results. All laboratory data reviewed All imaging studies reviewed by me. RUBIA Snyder, 05/04/2024 [facility] Office : [phone] (Dr. Vyas) * Rosalee Anglin DO - 05/04/2024 7:22 AM CDT [facility] Medicine Progress Note - Hospitalist Service Date of Admission: 05/02/2024 Assessment & Plan Catarina Almeida is a 73 year old female with a history of liver transplant and kidney transplant, chronic kidney disease stage 3, hypertension, diabetes mellitus type 2, and hypothyroidism who presented to the ER with generalized weakness and lightheadedness. Evaluation in the ER included a CT scan of the chest/abdomen/pelvis which showed findings concerning for an obstructive process in the biliary tree as well as potential infection involving her transplanted kidney. She was given Zosyn and IVfluids. She was accepted for admission at [facility], however there are no beds available at this time. The hospitalist service was contacted to admit the patient while awaiting an open bed for transfer to [facility]. 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 CT chest/abdomen/pelvis on 05/02/2024 showed findings concerning for pyelonephritis involving the transplanted kidney as well as potential adjacent abscess. Renal transplant ultrasound on 05/02/2024 showed a normal appearing right renal allograft. Creatinine 1.37 on 05/02/24, up slightly from earlier this year. Continue on IV Zosyn UA negative, urine culture pending. Blood culture pending. No leukocytosis - considered immunocompromised pt MRI of renal transplant recommend - pending as MRCP completed first 05/02/24 Nephrology consulted and is following (appreciated). Was started on stress dose steroids 05/03/24 and IVF Creat is being monitored closely Awaiting tacrolimus level 05/04/24 1530 - I did place a call to the transfer center this afternoon. Confirmed that she is still on the list for a transfer to the [place] when a bed is available. 2. 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 Follows with the transplant clinic at the [facility] as an outpatient. Continue [employer] tacrolimus, mycophenolate, and prednisone for now pending further evaluation of potential infection and input from her transplant team. MRCP 05/03/24 - intra and extrahepatic biliary ductal dilatation. No obstructing stone seen . Possible ampullary stricture present Total bili and transaminase levels normal [facility] consulted - MRCP reviewed. Would recommend an EGD/ERCP once renal abscess treated/addressed 3. Recent COVID-19 infection Developed fever, cough, GI symptoms on 04/18/2024 and had a positive home COVID test on 04/19/24. Fever and GI symptoms improved, still has a cough and some shortness of breath - mainly with exertion. COVID-19 PCR negative on 05/02/24. 05/04/24 - she confirms with me that she did not take Paxlovid during her recent COVID infection 4. Lactic acidosis Suspect related to infection. Resolved with fluids and antibiotics. 5. Elevated BNP Short of breath. Recent COVID-[address] chest negative for PE, also no airspace consolidation or pleural effusion. Lungs clear to auscultation. No lower extremity edema. Weight is down about 7pounds over the past week. Significance unclear. Exam and history do not seem consistent with CHF. Consider TTE pending clinical course. 6. Hypertension Blood pressure down to 110s systolic at times in the ER. BP this am 132/69, 124/67 Continue to hold [employer] amlodipine for now, can restart if blood pressure trends up later today Hold [employer] Coreg for now, patient had not been taking this recently as she did not feel like she needed it. Can consider resuming if blood pressure trends up. 05/04/24 - mild tachy noted this am. Will restart coreg today with holding parameters 7. Left abd/back pain Chronic for the last 2 months Will transition off IV narcotics to po prn oxycodone, tylenol, flexeril Add topical agents (lidoderm patches), aqua K pad 8. Diabetes mellitus type 2 Hemoglobin A1c 6.1% on 05/02/2024. [employer] regimen included Lantus 20 units daily in a.m., aspart 8 units 3 times daily with meals plus sliding scale, and Ozempic 2 mg weekly. Resume [employer] Lantus at 10 units daily in a.m. and aspart at 4 units 3 times daily with meals. Can titrate back up to home dose as needed. Monitor blood sugars before meals and at bedtime and use medium dose sliding scale NovoLog as indicated. Moderate carbohydrate diet. Monitor for hypoglycemia. 9. Hypothyroidism Continue [employer] levothyroxine. 10. Prolonged QTc Noted on EKG , 05/03 Awaiting repeat EKG this am (05/04) 11. Insomnia This is a chronic problem for her [employer] trazadone has been held d/t prolonged Qtc She is requesting ambien 10mg She has used ambien in the past but stopped being effective so transitioned to trazadone Does not want melatonin 05/04 -she is happy with ambien 5mg/day prn 11. Fibromyalgia Chronic pain syndrome noted PPE Used: Mask, gloves Diet: Combination Diet Moderate Consistent Carb (60 g CHO per Meal) Diet DVT Prophylaxis: Ambulate every shift for now - will need subcutaneous heparin once it is determined that no procedure/ERCP is needed today Haji Catheter: Not present Lines: None Cardiac Monitoring: None Code Status: Full Code Clinically Significant Risk Factors # Hypomagnesemia: Lowest Mg = 1.6 mg/dL in last 2 days, will replace as needed # Hypertension: Noted on problem list Disposition Plan Medically Ready for Discharge: Anticipated in 5+ Days Transfer to the [facility] once bed is available Rosalee Anglin DO Hospitalist Service [facility] Securely message with [employer] (more info) Text page via [employer] Paging/Directory Interval History Doing well. Slept well with ambien. Has been receiving IV dilaudid for chronic, intermittent left side/flank pain that has been occurring for 2months + No pain on the right side/flank. Requesting oxycodone as that has helped her in thepast No new headache, cp, cough or sob Physical Exam Vital Signs: Temp: 98 ??F (36.7 ??C) Temp src: Oral BP: 125/74 Pulse: 85 Resp: 18 SpO2: 96 % O2 Device: None (Room air) Weight: 123 lbs 0 oz GEN: Alert, oriented x 3, appears comfortable at rest, no overt respiratory distress. HEENT: Normocephalic/atraumatic, no scleral icterus, no nasal discharge CV: Regular rate and rhythm, no loud murmur or JVD. S1 + S2 noted, LUNGS: Clear to auscultation ant/lat bilaterally without rales/rhonchi/wheezing/retractions. Symmetric chest rise on inhalation noted. ABD: Active bowel sounds, soft, no significant tenderness or distension. No clear rebound/guarding/rigidity. I am not able to reproduce pain in the left sided abd area or left flank/bank this am EXT: No pretibial edema bilaterally. No cyanosis. No new joint synovitis noted. SKIN: Dry to touch, no new exanthems noted in the visualized areas. Medical Decision Making 50 MINUTES SPENT BY ME on the date of service doing chart review, history, exam, documentation & further activities per the note. Data Medications Current Facility-Administered Medications Medication Dose Route Frequency Provider Last Rate Last Admin sodium chloride 0.9 % infusion Intravenous Continuous Jacques Iniguez MD 100 mL/hr at 05/04/24 0358 New Bag at 05/04/24 0358 Current Facility-Administered Medications Medication Dose Route Frequency Provider Last Rate Last Admin hydrocortisone sodium succinate PF (solu-CORTEF) injection 100 mg 100 mg Intravenous Q8H Jacques Iniguez MD 100 mg at 05/04/24 0148 insulin aspart (NovoLOG) injection (RAPID ACTING) 1-7 Units Subcutaneous TID AC Jacques Muñiz MD insulin aspart (NovoLOG) injection (RAPID ACTING) 1-5 Units Subcutaneous At Bedtime Rachel Muñiz MD insulin aspart (NovoLOG) injection (RAPID ACTING) 4 Units Subcutaneous TID w/meals Jacques Muñiz MD insulin glargine (LANTUS PEN) injection 10 Units 10 Units Subcutaneous QAM Jacques Muñiz MD 10 Units at 05/03/24 0909 levothyroxine (SYNTHROID/LEVOTHROID) tablet 75 mcg 75 mcg Oral or NG Tube Daily Jacques Muñiz MD 75 mcg at 05/03/24 0908 mycophenolate (GENERIC EQUIVALENT) capsule 500 mg 500 mg Oral BID Jacques Muñiz MD 500 mg at 05/03/24 2230 oxyCODONE (ROXICODONE) tablet 5 mg 5 mg Oral Once Baldo Dias MD piperacillin-tazobactam (ZOSYN) 2.25 g vial to attach to NS 100 ml bag 2.25 g Intravenous Q6H Jacques Muñiz MD 2.25 g at 05/04/24 0630 sodium chloride (PF) 0.9% PF flush 3 mL 3 mL Intracatheter Q8H Jacques Muñiz MD 3 mL at 05/03/24 1310 tacrolimus (GENERIC EQUIVALENT) capsule 2 mg 2 mg Oral QAM Jacques Muñiz MD 2 mg at 05/03/24 0907 And tacrolimus (GENERIC EQUIVALENT) capsule 1 mg 1 mg Oral QPM Jacques Mñuiz MD 1 mg at 05/03/24 2230 traZODone (DESYREL) tablet 50-100 mg 50-100 mg Oral At Bedtime Jacques Muñiz MD Labs and Imaging results below reviewed today. Recent Labs Lab 05/03/24 1106 05/02/24 1323 WBC 6.4 7.7 HGB 11.1* 13.2 HCT 35.2 39.7 MCV 80 80 PLT 237 272 Recent Labs Lab 05/04/24 0204 05/03/24 2201 05/03/24 1723 05/03/24 1213 05/03/24 1106 05/02/24 2149 05/02/24 1323 NA -- -- -- -- 140 -- 138 POTASSIUM -- -- -- -- 4.3 -- 3.5 CHLORIDE -- -- -- -- 108* -- 105 CO2 -- -- -- -- 25 -- 21* ANIONGAP -- -- -- -- 7 -- 12 GLC 149* 158* 128* < > 105* < > 127* BUN -- -- -- -- 7.4* -- 11.7 CR -- -- -- -- 1.32* -- 1.37* GFRESTIMATED -- -- -- -- 43* -- 41* MIMI -- -- -- -- 8.9 -- 9.4 < > = values in this interval not displayed. 7-Day Micro Results Collected Updated Procedure Result Status 05/03/2024 1939 05/03/20242021 Urine Culture [[id number]] Urine, Midstream In process Component Value No component results 05/02/2024 1711 05/03/2024 1717 Blood Culture Line, venous [[id number]] Blood from Line, venous Preliminary result Component Value Culture No growth after 1 day [P] 05/02/2024 1337 05/02/2024 1427 Symptomatic Influenza A/B, RSV, & SARS-CoV2 PCR (COVID-19) Nasopharyngeal [[id number]] Swab from Nasopharyngeal Final result Component Value Influenza A PCR Negative Influenza B PCR Negative RSV PCR Negative SARS CoV2 PCR Negative NEGATIVE: SARS-CoV-2 (COVID-19) RNA not detected, presumed negative. Recent Labs Lab 05/04/24 0204 05/03/24 2201 05/03/24 1723 05/03/24 1213 05/03/24 1106 05/02/24 2149 05/02/24 1323 NA -- -- -- -- 140 -- 138 POTASSIUM -- -- -- -- 4.3 -- 3.5 CHLORIDE -- -- -- -- 108* -- 105 CO2 -- -- -- -- 25 -- 21* ANIONGAP -- -- -- -- 7 -- 12 GLC 149* 158* 128* < > 105* < > 127* BUN -- -- -- -- 7.4* -- 11.7 CR -- -- -- -- 1.32* -- 1.37* GFRESTIMATED -- -- -- -- 43* -- 41* MIMI -- -- -- -- 8.9 -- 9.4 MAG -- -- -- -- 2.1 -- 1.6* PROTTOTAL -- -- -- -- 5.9* -- 6.3* ALBUMIN -- -- -- -- 3.6 -- 3.9 BILITOTAL -- -- -- -- 0.3 -- 0.3 ALKPHOS -- -- -- -- 48 -- 58 AST -- -- -- -- 20 -- 20 ALT -- -- -- -- 9 -- 11 < > = values in this interval not displayed. Recent Labs Lab 05/02/24 1711 05/02/24 1326 LACT 0.6* 2.1* No results found for this or any previous visit (from the past 24 hour(s)). * Rosalee Anglin DO - 05/03/2024 7:18 AM CDT Images from the original note were not included. [facility] Medicine Progress Note - Hospitalist Service Date of Admission: 05/02/2024 Assessment & Plan Catarina Amleida is a 73 year old female with a history of liver transplant and kidney transplant, chronic kidney disease stage 3, hypertension, diabetes mellitus type 2, and hypothyroidism who presented to the ER with generalized weakness and lightheadedness. Evaluation in the ER included a CT scan of the chest/abdomen/pelvis which showed findings concerning for an obstructive process in the biliary tree as well as potential infection involving her transplanted kidney. She was given Zosyn and IVfluids. She was accepted for admission at [facility], however there are no beds available at this time. The hospitalist service was contacted to admit the patient while awaiting an open bed for transfer to [facility]. 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 CT chest/abdomen/pelvis on 05/02/2024 showed findings concerning for pyelonephritis involving the transplanted kidney as well as potential adjacent abscess. Renal transplant ultrasound on 05/02/2024 showed a normal appearing right renal allograft. Creatinine 1.37 on 05/02/24, up slightly from earlier this year. Continue on IV Zosyn UA negative, urine culture pending. Blood culture pending. No leukocytosis - considered immunocompromised pt MRI of renal transplant recommend - pending as MRCP completed first 05/02/24 Confirmed that she has been accepted to [facility] for evaluation/management by transplant team, transplant ID - awaiting bed 2. 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 Follows with the transplant clinic at the [facility] as an outpatient. Continue [employer] tacrolimus, mycophenolate, and prednisone for now pending further evaluation of potential infection and input from her transplant team. MRCP 05/03/24 - intra and extrahepatic biliary ductal dilatation. No obstructing stone seen . Possible ampullary stricture present Total bili and transaminase levels normal [facility] aware of patient - will evaluate today in consultation if pt is not able to transfer to the [facility]. 3. Recent COVID-19 infection Developed fever, cough, GI symptoms on 04/18/2024 and had a positive home COVID test on 04/19/24. Fever and GI symptoms improved, still has a cough and some shortness of breath - mainly with exertion. COVID-19 PCR negative on 05/02/24. 4. Lactic acidosis Suspect related to infection. Resolved with fluids and antibiotics. 5. Elevated BNP Short of breath. Recent COVID-[address] chest negative for PE, also no airspace consolidation or pleural effusion. Lungs clear to auscultation. No lower extremity edema. Weight is down about 7pounds over the past week. Significance unclear. Exam and history do not seem consistent with CHF. Consider TTE pending clinical course. 6. Hypertension Blood pressure down to 110s systolic at times in the ER. BP this am 132/69, 124/67 Continue to hold [employer] amlodipine for now, can restart if blood pressure trends up later today Hold [employer] Coreg for now, patient had not been taking this recently as she did not feel like she needed it. Can consider resuming if blood pressure trends up. 7. Diabetes mellitus type 2 Hemoglobin A1c 6.1% on 05/02/2024. [employer] regimen included Lantus 20 units daily in a.m., aspart 8 units 3 times daily with meals plus sliding scale, and Ozempic 2 mg weekly. Resume [employer] Lantus at 10 units daily in a.m. and aspart at 4 units 3 times daily with meals. Can titrate back up to home dose as needed. Monitor blood sugars before meals and at bedtime and use medium dose sliding scale NovoLog as indicated. Moderate carbohydrate diet. Monitor for hypoglycemia. 8. Hypothyroidism Continue [employer] levothyroxine. 9. Prolonged QTc Noted on admission EKG Will repeat EKG today and re-evaluate for medications 10. Insomnia This is a chronic problem for her [employer] trazadone has been held d/t prolonged Qtc She is requesting ambien 10mg She has used ambien in the past but stopped being effective so transitioned to trazadone Does not want melatonin Will order ambien 5mg po prn tonight 11. Fibromyalgia Chronic pain noted PPE Used: Mask, gloves Diet: Combination Diet Moderate Consistent Carb (60 g CHO per Meal) Diet DVT Prophylaxis: Ambulate every shift for now - will need subcutaneous heparin once it is determined that no procedure/ERCP is needed today Haji Catheter: Not present Lines: None Cardiac Monitoring: None Code Status: Full Code Clinically Significant Risk Factors Present on Admission # Hypomagnesemia: Lowest Mg = 1.6 mg/dL in last 2 days, will replace as needed # Hypertension: Noted on problem list Disposition Plan Medically Ready for Discharge: Anticipated in 5+ Days Rosalee Anglin DO Hospitalist Service [facility] Securely message with [employer] (more info) Text page via [facility] [employer] Paging/Directory Interval History Doing well. No SEXTON, CP or SOB. Min cough left from COVID infection. No N/V - tolerating po well Worried mostly about being able to sleep while in the hospital. Frustrated that she was unable to have her [employer] trazadone last evening. Requesting ambien. No new concerns from nursing. Physical Exam Vital Signs: Temp: 97.3 ??F (36.3 ??C) Temp src: Oral BP: 132/69 Pulse: 87 Resp: 17 SpO2: 99 % O2 Device: None (Room air) Weight: 123 lbs 0 oz GEN: Alert, oriented x 3, appears comfortable, no overt respiratory distress. HEENT: Normocephalic/atraumatic, no scleral icterus, no nasal discharge CV: Regular rate and rhythm, no loud murmur or JVD. S1 + S2 noted, LUNGS: Clear to auscultation ant/lat bilaterally without rales/rhonchi/wheezing/retractions. Symmetric chest rise on inhalation noted. ABD: Active bowel sounds, soft, no significant tenderness or distension. No clear rebound/guarding/rigidity. EXT: No edema. No cyanosis. No new joint synovitis noted. SKIN: Dry to touch, no new exanthems noted in the visualized areas. Medical Decision Making 51 MINUTES SPENT BY ME on the date of service doing chart review, history, exam, documentation & further activities per the note. Data Medications Current Facility-Administered Medications Medication Dose Route Frequency Provider Last Rate Last Admin lactated ringers infusion Intravenous Continuous Jacques Muñiz MD 75 mL/hr at 05/02/242140 New Bag at 05/02/242140 Current Facility-Administered Medications Medication Dose Route Frequency Provider Last Rate Last Admin insulin aspart (NovoLOG) injection (RAPID ACTING) 1-7 Units Subcutaneous TID AC Jacques Muñiz MD insulin aspart (NovoLOG) injection (RAPID ACTING) 1-5 Units Subcutaneous At Bedtime Rachel Muñiz MD insulin aspart (NovoLOG) injection (RAPID ACTING) 4 Units Subcutaneous TID w/meals Jacques Muñiz MD insulin glargine (LANTUS PEN) injection 10 Units 10 Units Subcutaneous QAM Jacques Muñiz MD levothyroxine (SYNTHROID/LEVOTHROID) tablet 75 mcg 75 mcg Oral or NG Tube Daily Jacques Muñiz MD mycophenolate (GENERIC EQUIVALENT) capsule 500 mg 500 mg Oral BID Jacques Muñiz MD 500 mg at 05/02/24 225 piperacillin-tazobactam (ZOSYN) 2.25 g vial to attach to NS 100 ml bag 2.25 g Intravenous Q6H Jacques Muñiz MD 2.25 g at 05/03/24 0650 predniSONE (DELTASONE) tablet 5 mg 5 mg Oral or NG Tube Daily Jacques Muñiz MD sodium chloride (PF) 0.9% PF flush 3 mL 3 mL Intracatheter Q8H Jacques Muñiz MD 3 mL at 05/02/242142 tacrolimus (GENERIC EQUIVALENT) capsule 2 mg 2 mg Oral QAM Jacques Muñiz MD And tacrolimus (GENERIC EQUIVALENT) capsule 1 mg 1 mg Oral QPM Jacques Muñiz MD 1 mg at 05/02/24 225 traZODone (DESYREL) tablet 50-100 mg 50-100 mg Oral At Bedtime Jacques Muñiz MD Labs and Imaging results below reviewed today. Recent Labs Lab 05/03/24 1106 05/02/24 1323 WBC 6.4 7.7 HGB 11.1* 13.2 HCT 35.2 39.7 MCV 80 80 PLT 237 272 Recent Labs Lab 05/03/24 1213 05/03/24 1106 05/03/24 0805/02/24214805/02/24 1323 NA -- 140 -- -- 138 POTASSIUM -- 4.3 -- -- 3.5 CHLORIDE -- 108* -- -- 105 CO2 -- 25 -- -- 21* ANIONGAP -- 7 -- -- 12 GLC 124* 105* 101* < > 127* BUN -- 7.4* -- -- 11.7 CR -- 1.32* -- -- 1.37* GFRESTIMATED -- 43* -- -- 41* MIMI -- 8.9 -- -- 9.4 < > = values in this interval not displayed. 7-Day Micro Results Collected Updated Procedure Result Status 05/02/2024 1711 05/03/2024 0517 Blood Culture Line, venous [[id number]] Blood from Line, venous Preliminary result Component Value Culture No growth after 12 hours [P] 05/02/2024 1337 05/02/2024 1427 Symptomatic Influenza A/B, RSV, & SARS-CoV2 PCR (COVID-19) Nasopharyngeal [[id number]] Swab from Nasopharyngeal Final result Component Value Influenza A PCR Negative Influenza B PCR Negative RSV PCR Negative SARS CoV2 PCR Negative NEGATIVE: SARS-CoV-2 (COVID-19) RNA not detected, presumed negative. Recent Labs Lab 05/03/24 1213 05/03/24 1106 05/03/24 0805/02/24214805/02/24 1323 NA -- 140 -- -- 138 POTASSIUM -- 4.3 -- -- 3.5 CHLORIDE -- 108* -- -- 105 CO2 -- 25 -- -- 21* ANIONGAP -- 7 -- -- 12 GLC 124* 105* 101* < > 127* BUN -- 7.4* -- -- 11.7 CR -- 1.32* -- -- 1.37* GFRESTIMATED -- 43* -- -- 41* MIMI -- 8.9 -- -- 9.4 MAG -- 2.1 -- -- 1.6* PROTTOTAL -- 5.9* -- -- 6.3* ALBUMIN -- 3.6 -- -- 3.9 BILITOTAL -- 0.3 -- -- 0.3 ALKPHOS -- 48 -- -- 58 AST -- 20 -- -- 20 ALT -- 9 -- -- 11 < > = values in this interval not displayed. Recent Labs Lab 05/02/24 1711 05/02/24 1326 LACT 0.6* 2.1* Recent Results (from the past 24 hour(s)) CT Chest (PE) Abdomen Pelvis w Contrast Addendum: 05/02/2024 IMPRESSION #6: New small splenic infarct. LEYDA MCKENZIE MD Narrative CT CHEST PE ABDOMEN PELVIS W CONTRAST 05/02/2024 3:00 PM CLINICAL HISTORY: Shortness of breath, LLQ abd pain TECHNIQUE: TECHNIQUE: CT angiogram chest and routine CT abdomen pelvis with IV contrast. Arterial phase through the chest and venous phase through the abdomen and pelvis. 2D and 3D MIP reconstructions were performed by the architectural technologist. Dose reduction techniques were used. CONTRAST: [...] GLANDS: No significant nodules. KIDNEYS/BLADDER: Atrophic bilateral [place] kidneys which are symmetrically enhancing without hydronephrosis. [...] loss. Multilevel degenerative changes of the spine. Impression IMPRESSION: 1. Postsurgical changes of liver transplant. [...] follow-up at 12 months. LEYDA MCKENZIE MD US Renal Transplant with Doppler Narrative EXAM: US RENAL TRANSPLANT WITH DOPPLER LOCATION: [facility] DATE: 05/02/2024 INDICATION: Right lower quadrant renal [...] transplant resistive index (RI) is borderline ranging between0.74-0.83. The transplant renal vein is patent without stenosis. Patent right iliac artery and vein above and below the anastomosis. Impression IMPRESSION: 1. Normal sonographic appearance of the [...] Borderline resistive indices in the renal allograft. MR Abdomen MRCP w/o & w Contrast Narrative EXAM: MR ABDOMEN MRCP W/O and W CONTRAST LOCATION: [facility] DATE: 05/03/2024 INDICATION: history of liver and kidney transplants; presented with generalized weakness, recent fever and GI symptoms; CT abdomen pelvis with increasing bile duct dilatation and concern for pyelonephritis w renal abcess; LFTs normal, creatinine up slightly COMPARISON: CT from 05/02/2024. TECHNIQUE: Routine MR liver/pancreas protocol including axial and coronal MRCP sequences. 2D and 3Dreconstruction performed by MR technologist including MIP reconstruction [...] a T2 hyperintense focus in the liver hilumadjacent to the proximal extrahepatic common bile duct [...] of previously described infarct. Normal adrenals. Atrophic cher[place] kidneys. Right lower quadrant transplant kidney with hypoenhancement of the lower pole cortex and a multilocular fluid collection in the ventral lower pole measuring 2.2 x1.9 cm on image 6 of series 19. Normal caliber bowel. Normal caliber abdominal aorta. Distal colonic diverticulosis. Normal bladder. No acute osseous findings. Impression IMPRESSION: 1. Intrahepatic and extrahepatic biliary ductal dilatation. Redemonstrated diffuse pancreatic ductal dilatation. No obstructing stone. 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 Given abnormal liver function tests, ERCP should be considered in further evaluation. 2. Findings suspicious for a 2.2 cm abscess in the ventral aspect of the patient's right pelvic transplant kidney. * Mary Clark RN - 05/02/2024 6:37 PM CDT RECEIVING UNIT ED HANDOFF REVIEW ED Nurse Handoff Report was reviewed by: Mary Clark RN on May 02, 2024 at 6:37 PM documented in this encounter H&P Notes * Jacques Muñiz MD - 05/02/2024 6:00 PM CDT [facility] History and Physical - Hospitalist Service Date of Admission: 05/02/2024 Assessment & Plan Catarina Almeida is a 73 year old female with a history of liver transplant and kidney transplant, chronic kidney disease stage 3, hypertension, diabetes mellitus type 2, and hypothyroidism who presented to the ER with generalized weakness and lightheadedness. Evaluation in the ER included a CT scan of the chest/abdomen/pelvis which showed findings concerning for an obstructive process in the biliary tree as well as potential infection involving her transplanted kidney. She was given Zosyn and IVfluids. She was accepted for admission at [facility], however there are no beds available at this time. The hospitalist service was contacted to admit the patient while awaiting an open bed for transfer to [facility]. Generalized weakness Lightheadedness Has not felt well since April 18 when she developed a fever, cough, shortness of breath, nausea/vomiting/diarrhea, generalized weakness, lightheadedness and subsequently tested positive for COVID onApril 19. Some symptoms have slowly improved but she is not back to baseline yet. Still feels generally weak, fatigued, lightheaded. Evaluation in the ER showed potential infection involving her renal transplant and findings concerning for biliary tree obstruction. Admit to inpatient. Accepted for transfer to [facility], awaiting available bed. Treat liver/kidney issues as noted below. Will need PT/OT consults. 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 CT chest/abdomen/pelvis on 05/02/2024 showed findings concerning for pyelonephritis involving the transplanted kidney as well as potential adjacent abscess. Renal transplant ultrasound on 05/02/2024 showed a normal appearing right renal allograft. Creatinine 1.37 on 05/02/24, up slightly from earlier this year. Started on IV Zosyn in the ER due to concern for potential infection, continue the same. UA negative, urine culture pending. Blood culture pending. IV fluids. Recheck labs in AM. MRI of renal transplant recommend. Discussed with MRI department, unable to image both liver and renal transplant during same MRI due to the timing of the contrast. Plan for MRCP this evening, consider MRI of renal transplant tomorrow. Anticipate transfer to [facility] for evaluation/management by transplant team, transplant ID. 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 [facility] Continue [employer] tacrolimus, mycophenolate, and prednisone for now pending further evaluation of potential infection and input from her transplant team. MRCP ordered for further evaluation of biliary ductal dilatation. Recheck labs in AM. Asael BASURTO aware of patient. Will place formal consult in a.m. if patient does not transfer to [facility] tomorrow morning. Recent COVID-19 infection Developed fever, cough, GI symptoms on 04/18/2024 and had a positive home COVID test on 04/19/24. Fever and GI symptoms improved, still has a cough and some shortness of breath - mainly with exertion. COVID-19 PCR negative on 05/02/24. Noted. Likely plan for ID consult at [facility]. Lactic acidosis Suspect related to infection. Resolved with fluids and antibiotics. Elevated BNP Short of breath. Recent COVID-[address] chest negative for PE, also no airspace consolidation or pleural effusion. Lungs clear to auscultation. No lower extremity edema. Weight is down about 7pounds over the past week. Significance unclear. Exam and history do not seem consistent with CHF. Consider TTE pending clinical course. Hypertension Blood pressure down to 110s systolic at times in the ER. Hold [employer] amlodipine for now, can restart if blood pressure trends up. Hold [employer] Coreg for now, patient had not been taking this recently as she did not feel like she needed it. Can consider resuming if blood pressure trends up. Diabetes mellitus type 2 Hemoglobin A1c 6.1% on 05/02/2024. [employer] regimen included Lantus 20 units daily in a.m., aspart 8 units 3 times daily with meals plus sliding scale, and Ozempic 2 mg weekly. Resume [employer] Lantus at 10 units daily in a.m. and aspart at 4 units 3 times daily with meals. Can titrate back up to home dose as needed. Monitor blood sugars before meals and at bedtime and use medium dose sliding scale NovoLog as indicated. Moderate carbohydrate diet. Monitor for hypoglycemia. Hypothyroidism Continue [employer] levothyroxine. Diet: Combination Diet Moderate Consistent Carb (60 g CHO per Meal) Diet DVT Prophylaxis: Pneumatic Compression Devices Haji Catheter: Not present Lines: None Cardiac Monitoring: None Code Status: Full Code Clinically Significant Risk Factors Present on Admission # Hypomagnesemia: Lowest Mg = 1.6 mg/dL in last 2 days, will replace as needed # Hypertension: Noted on problem list Disposition Plan Medically Ready for Discharge: Anticipated in 2-4 Days Jacques Muñiz MD Hospitalist Service [facility] Securely message with [employer] (more info) Text page via [facility] Paging/Directory Chief Complaint Generalized weakness, lightheadedness, cough History is obtained from the patient History of Present Illness Catarina Almeida is a 73 year old female with a history of liver transplant and kidney transplant, chronic kidney disease stage 3, hypertension, diabetes mellitus type 2, and hypothyroidism who presented to the ER with generalized weakness and lightheadedness. She has not been feeling well for about 2 weeks. She states that she developed a cough, shortness of breath, fever, and generalized weaknesson April 18. The following day she tested positive for COVID on a home COVID test. She states she felt quite ill for several days. The fever resolved after a day or so but she continued to have intermittent chills, cough, shortness of breath, poor appetite, nausea, diarrhea, and generalized weakness. Her GI symptoms improved 2 or 3 days ago and she has been able to increase oral intake somewhat. She started coughing up some blood the day prior to admission. She was seen and evaluated in the ER and ultimately discharged home. Her symptoms persisted and she came back into the ER on 05/02/2024 forevaluation. In the ER she was evaluated by Abdelrahman Esquivel PA-C. She was mildly tachycardic but other vitals were okay as documented in epic. Labs showed a normal CBC, negative UA, significantly elevated BNP, mildly elevated troponin. CT chest/abdomen/pelvis was negative for pulmonary embolism but did show worsening intra hepatic and extrahepatic biliary ductal dilatation as well as increasing dilatation of the main pancreatic duct. It also showed findings in her right lower quadrant renal transplant that could represent pyelonephritis with associated renal abscess. Renal transplant ultrasound was obtained and was normal. She was started on Zosyn due to concern for pyelonephritis/abscess. GI was contacted regarding the biliary tree dilatation, agreed with IV antibiotics, recommended MRCP, potential need for EGD/EUS. Given her transplant history, the [facility] was contacted and accepted the patient for admission, however they do not have any beds available and will likely not have any beds available until tomorrow morning. The hospitalist service was contacted to admit her to [facility] while awaiting transfer to [facility]. Past Medical History Past Medical History: Diagnosis Date Benign essential hypertension CHRONIC AIRWAY OBSTRUCTION Diabetes mellitus, type 2 (H) Diverticulitis of colon Genital herpes, unspecified HEPATITIS C LUMB/LUMBOSAC DISC DISEASE L and C spine Pyelonephritis S/P kidney transplant S/P liver transplant (H) Unspecified hypothyroidism Past 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, s/p OLT 12/30/2016 SC TRANSPLANTATION OF KIDNEY ZZC APPENDECTOMY Prior to Admission Medications Prior to Admission Medications Prescriptions Last Dose Informant Patient Reported? Taking? ALENDRONATE SODIUM 70 MG OR TABS More than a month at ran out No Yes Si TABLET WEEKLY ON AN EMPTY STOMACH Patient taking differently: Take 70 mg by mouth every 7 days Semaglutide, 2 MG/DOSE, (OZEMPIC, 2 MG/DOSE,) 8 MG/3ML pen 04/26/2024 Yes Yes Sig: Inject 2 mg Subcutaneous every 7 days acyclovir (ZOVIRAX) 400 MG tablet at prn No Yes Sig: ONE TABLET 3 TIMES DAILY x 5 days Patient taking differently: Take 400 mg by mouth 3 times daily as needed ONE TABLET 3 TIMES DAILY x5 days amLODIPine (NORVASC) 5 MG tablet 05/01/2024 Yes Yes Sig: Take 5 mg by mouth every evening carvedilol (COREG) 12.5 MG tablet 05/01/2024 Yes Yes Sig: Take 12.5 mg by mouth One to two times daily fluticasone (FLONASE) 50 MCG/ACT nasal spray at prn Yes Yes Sig: [place] 1 spray into both nostrils daily as needed for rhinitis or allergies insulin aspart (NOVOLOG PEN) 100 UNIT/ML pen 05/02/2024 at am Yes Yes Sig: Inject 8 Units subcutaneously 3 times daily (with meals) plus sliding scale insulin glargine (LANTUS PEN) 100 UNIT/ML pen 05/02/2024 at am Yes Yes Sig: Inject 20 Units subcutaneously every morning levothyroxine (SYNTHROID/LEVOTHROID) 75 MCG tablet 05/02/2024 at am Yes Yes Sig: Take 75 mcg by mouth daily mycophenolate (GENERIC EQUIVALENT) 250 MG capsule 05/02/2024 at am No Yes Sig: Take 2 capsules (500 mg) by mouth 2 times daily predniSONE (DELTASONE) 5 MG tablet 05/02/2024 No Yes Sig: Take 1 tablet (5 mg) by mouth daily tacrolimus (GENERIC EQUIVALENT) 1 MG capsule 05/02/2024 at am No Yes Sig: Take 2 capsules (2 mg) by mouth every morning AND 1 capsule (1 mg) every evening. traZODone (DESYREL) 50 MG tablet 05/01/2024 Yes Yes Sig: Take 50-100 mg by mouth at bedtime Facility-Administered Medications: None Review of Systems The 10 point Review of Systems is negative other than noted in the HPI or here. Social History I have reviewed this patient's social history and updated it with pertinent information if needed. Social History Tobacco Use Smoking status: Never Smokeless tobacco: Never Tobacco comments: second hand smoke Substance Use Topics Alcohol use: Yes Comment: rare Drug use: Yes Types: Marijuana Family History I have reviewed this patient's family history and updated it with pertinent information if needed. Family History Problem Relation Age of Onset Respiratory Mother copd Allergies No Known Allergies Physical Exam Vital Signs: Temp: 98.6 ??F (37 ??C) Temp src: Oral BP: (P) 111/76 Pulse: (P) 80 Resp: (P) 18 SpO2:(P) 96 % O2 Device: (P) None (Room air) Weight: 123 lbs 0 oz Constitutional: awake, alert, cooperative, no apparent distress, laying in the ER bed Respiratory: no increased work of breathing, clear to auscultation bilaterally, no crackles or wheezing Cardiovascular: regular rate and rhythm, normal S1 and S2, no murmur noted GI: normal bowel sounds, soft, non-distended, mild lower abdominal tenderness Skin: warm, dry Musculoskeletal: no lower extremity pitting edema present Neurologic: awake, alert, answers questions appropriately, moves all extremities Medical Decision Making 90 MINUTES SPENT BY ME on the date of service doing chart review, history, exam, documentation & further activities per the note. Data I have personally reviewed the following data over the past 24 hrs: 7.7 \ 13.2 / 272 138 105 11.7 / 127 (H) 3.5 21 (L) 1.37 (H) \ ALT: 11 AST: 20 AP: 58 TBILI: 0.3 ALB: 3.9 TOT PROTEIN: 6.3 (L) LIPASE: 27 Trop: 44 (H) BNP: 15,821 (H) TSH: 4.64 (H) T4: 1.39 A1C: N/A Procal: N/A CRP: N/A Lactic Acid: 0.6 (L) Imaging results reviewed over the past 24 hrs: Recent Results (from the past 24 hour(s)) CT Chest (PE) Abdomen Pelvis w Contrast Addendum: 05/02/2024 IMPRESSION #6: New small splenic infarct. LEYDA MCKENZIE MD Narrative CT CHEST PE ABDOMEN PELVIS W CONTRAST 05/02/2024 3:00 PM CLINICAL HISTORY: Shortness of breath, LLQ abd pain TECHNIQUE: TECHNIQUE: CT angiogram chest and routine CT abdomen pelvis with IV contrast. Arterial phase through the chest and venous phase through the abdomen and pelvis. 2D and 3D MIP reconstructions were performed by the architectural technologist. Dose reduction techniques were used. CONTRAST: [...] GLANDS: No significant nodules. KIDNEYS/BLADDER: Atrophic bilateral [place] kidneys which are symmetrically enhancing without hydronephrosis. [...] loss. Multilevel degenerative changes of the spine. Impression IMPRESSION: 1. Postsurgical changes of liver transplant. [...] follow-up at 12 months. LEYDA MCKENZIE MD US Renal Transplant with Doppler Narrative EXAM: US RENAL TRANSPLANT WITH DOPPLER LOCATION: [facility] DATE: 05/02/2024 INDICATION: Right lower quadrant renal [...] transplant resistive index (RI) is borderline ranging between0.74-0.83. The transplant renal vein is patent without stenosis. Patent right iliac artery and vein above and below the anastomosis. Impression IMPRESSION: 1. Normal sonographic appearance of the [...] Borderline resistive indices in the renal allograft. documented in this encounter Consult Notes * Leatha Rodriguez RN - 05/06/2024 3:55 PM CDTAssociated Order(s): CARE MANAGEMENT / SOCIAL WORK IP CONSULT Care Management Initial Consult General Information Assessment completed with: patient Additional Information: Pt has discharge orders for home with PCP follow-up and labs. Met with pt to discuss follow-up appt. Per pt she see Dr. Howell. [facility] and scheduled[facility] to be seen on May 10 at 12:15 PM for after hospital stay follow-up and labs. Patient was informed and stated she had received email confirmation of the appt. Updated epic with correct PCP. No other discharge needs. RUIZ Mg RN, BSN, OCN Inpatient Care Coordination [address] Office: [phone] * Gale Vallecillo PA-C - 05/06/2024 11:16 AM CDTAssociated Order(s): GI LUMINAL ADULT IP CONSULT Images from the original note were not included. Advanced Endoscopy/Pancreaticobiliary Consultation Date of Admission: 05/02/2024 Reason for Admission: weakness Date of Consult 05/06/2024 Requesting Physician: Jacques Muñiz,* ASSESSMENT AND RECOMMENDATIONS: Assessment: 73 year old female with a history of simultaneous liver-kidney transplant (SLK) 12/30/2016 at [facility] for HCV, transferred her care to [facility] May 2023 (Dr. Kylee Fu, last visit 01/11/2024), recent admission January 2024 with perforated diverticulitis & C diff managed conservatively at [facility], admitted to [facility] 05/02 for generalized weakness and lightheadedness, concern fortransplant kidney abscess and possible biliary obstruction. Another GI team at [facility] initially consulted on 05/02, recommended MRCP, possible EUS/ERCP. [facility] GI consulted 05/05 at the request of Dr. Calle given her post transplant status. On transfer list for [facility] but no beds available. #. Intra/extrahepatic biliary duct and pancreatic duct dilation #. S/p liver transplant (DDLT, [id number] 2016) #. S/p kidney transplant (2017, simultaneous with liver 2017) #. C/f abscess or infarct of renal allograft (2.2cm) #. Left flank pain, chronic MRCP obtained this admission showing intra/extrahepatic biliary dilation with diffuse pancreatic duct dilation. No obstructing stone. There is also a T2 hyperintense focus in the liver hilum adjacentto the proximal extrahepatic common bile duct which mildly narrows the bile duct at this level as seen on sequence 3, measuring 3.3 x 2.3 cm. This could reflect a gallbladder or cystic duct remnant or a choledochocyst. No suspicious features or enhancement. Biliary dilation has been present since at least 2018 and its primarily the cher[place] CBD. This could represent papillary stenosis, no obvious mass lesion or stone on multiple imaging studies. Will consider EUS as outpatient after kidney abscess is treated - primary to evaluate the double duct dilation (CBD and PD) and r/o mass lesion. Liver tests entirely normal on admission 05/02 and have remained normal over the last 4 days. Started on antibiotics (Zosyn -> transitioned to Ceftriaxone 05/06), blood cultures obtained 05/02 and 05/03 with NGTD. These imaging findings are in the setting of possible transplant kidney abscess - IR unable to aspirate and transplant nephrology recommending conservative management with antibiotics. The patients left flank pain does not appear to be biliary in nature and has been reporting these symptoms at least since May 2023 (see hep clinic note 05/2023). -- Antibiotics per ID and transplant nephrology, follow cultures -- Trend liver tests -- No urgent EUS or ERCP planned this admission - will arrange for outpatient evaluation -- Pain management per primary team -- Continue current immunosuppression regimen Discussed with primary team Dr. Calle Gastroenterology follow up recommendations: -- Message sent to [facility] GI Adv Endo RNCC to arrange outpatient EUS -- Outpatient colonoscopy scheduled 07/[address] Kylee Fu Thank you for involving us in this patient's care. Please do not hesitate to contact the GI servicewith any questions or concerns. Pt seen and care plan discussed with Dr. Kimbrough, GI staff physician. Overall time spent on the date of this encounter preparing to see the patient (including chart review of available notes, clinical status events, imaging and labs over the last 4 days of her hospitalstay at [facility]); obtaining history; examining the patient, coordinating and/or ordering medications, tests and/or procedures; communicating with other health primary care sales representative; and documenting the above clinical information in the electronic medical record was 95 minutes. Gale Vallecillo PA-C, [facility] Advanced Endoscopy/Pancreaticobiliary GI Service [facility] Reason for Consultation: s/p liver transplant (2017); abnormal CT imaging History of Present Illness: Catarina Almeida is a 73 year old female with a PMH significant for simultaneous liver-kidney transplant (SLK) 12/30/2016 at [facility] for HCV, transferred her care to [facility] May 2023 (Dr. Kylee Fu, last visit 01/11/2024), recent admission January 2024 with perforated diverticulitis & C diff managed conservatively at [facility], admitted to [facility] 05/02 for generalized weakness andlightheadedness, concern for transplant kidney abscess and possible biliary obstruction. The patient was seen and examined at 1145. She reports that she came into the hospital because of profound weakness, could not stand up. Also noted nausea/vomiting for a few days prior to admission, couldn't keep anything down. Reports night sweats for a few days prior to admission and since she'sbeen in the hospital. Patient otherwise denies chest pain, shortness of breath, new cough/respiratory symptoms, abdominal pain, melena, hematochezia, jaundice, rash, itching, weight loss, fevers or chills. She states that she has been experiencing left mid back pain for a couple of months. Recently went on a road trip and had to have her drive because she was so uncomfortable the whole time. Hasn't tried anything for the pain. Doesn't seem to be worsened or improved with positioning, oral intake or rest. She reports that she was not having this pain prior to her admission at [place] for diverticulitis. Per chart review of transplant hepatology notes she complained of the same left flank pain to Dr. Fu May 2023 that had been going on for a 1+year. Denies urinary complaints. Initially with mild tachycardia upon presentation but has remained afebrile, normotensive since admission. CBC unremarkable, no leukocytosis. Lactic acid initially 2.1, normalized to 0.6. Liver testsnormal on admission, have remained stable/normal since hospitalization. The patient is reporting some pain in her L flank, recenting tylenol and po oxycodone intermittently. Past Medical History: Reviewed and edited as appropriate Past Medical History: Diagnosis Date Benign essential hypertension CHRONIC AIRWAY OBSTRUCTION Diabetes mellitus, type 2 (H) Diverticulitis of colon Genital herpes, unspecified HEPATITIS C LUMB/LUMBOSAC DISC DISEASE L and C spine Pyelonephritis S/P kidney transplant S/P liver transplant (H) Unspecified hypothyroidism Past Surgical History: Reviewed and edited as appropriate Past Surgical History: Procedure Laterality Date IR PARACENTESIS 08/01/2015 IR PARACENTESIS 10/19/2016 IR PARACENTESIS 08/28/2015 IR PARACENTESIS 11/16/2015 IR PARACENTESIS 11/19/2015 IR PARACENTESIS 11/30/2015 IR PARACENTESIS 10/07/2016 LIVER TRANSPLANTATION 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, s/p OLT 12/30/2016 SC TRANSPLANTATION OF KIDNEY ZZC APPENDECTOMY Social History: The patient lives in [place] Family History: Patient's family history is reviewed today and is non-contributory Family History Problem Relation Age of Onset Respiratory Mother copd Allergies: Reviewed and edited as appropriate No Known Allergies Medications: Current Facility-Administered Medications Medication Dose Route Frequency Provider Last Rate Last Admin acetaminophen (TYLENOL) tablet 650 mg 650 mg Oral Q4H PRN Jacques Muñiz MD 650 mg at 05/06/24 1047 Or acetaminophen (TYLENOL) Suppository 650 mg 650 mg Rectal Q4H PRN Jacques Muñiz MD calcium carbonate (TUMS) chewable tablet 1,000 mg 1,000 mg Oral 4x Daily PRN Jacques Muñiz MD carvedilol (COREG) tablet 3.125 mg 3.125 mg Oral BID w/meals Rosalee Anglin DO 3.125 mg at 05/06/24 0807 cefTRIAXone (ROCEPHIN) 2 g vial to attach to NS 100 ml bag for ADULTS or NS 50 ml bag for PEDS 2 g Intravenous Q24H Chelly Berkowitz MD 100 mL/hr at 05/06/24 1010 2 g at 05/06/24 1010 cyclobenzaprine (FLEXERIL) tablet 5 mg 5 mg Oral Q8H PRN Rosalee Anglin DO 5 mg at 05/04/24 1008 glucose gel 15-30 g 15-30 g Oral Q15 Min PRN Jacques Muñiz MD Or dextrose 50 % injection 25-50 mL 25-50 mL Intravenous Q15 Min PRN Jacques Muñiz MD Or glucagon injection 1 mg 1 mg Subcutaneous Q15 Min PRN Jacques Muñiz MD heparin ANTICOAGULANT injection 5,000 Units 5,000 Units Subcutaneous Q8H Rosalee Gilmore DO insulin aspart (NovoLOG) injection (RAPID ACTING) 1-7 Units Subcutaneous TID AC Jacques Muñiz MD 2 Units at 05/05/24 1810 insulin aspart (NovoLOG) injection (RAPID ACTING) 1-5 Units Subcutaneous At Bedtime Rachel Muñiz MD insulin aspart (NovoLOG) injection (RAPID ACTING) 4 Units Subcutaneous TID w/meals Jacques Muñiz MD 4 Units at 05/05/24 1811 insulin glargine (LANTUS PEN) injection 10 Units 10 Units Subcutaneous QAM Jacques Muñiz MD 10 Units at 05/06/24 1022 levothyroxine (SYNTHROID/LEVOTHROID) tablet 75 mcg 75 mcg Oral or NG Tube Daily Jacques Muñiz MD 75 mcg at 05/06/24 0808 Lidocaine (LIDOCARE) 4 % Patch 1-3 patch 1-3 patch Transdermal Q24H Rosalee Gilmore DO 1 patch at 05/06/24 1052 lidocaine (LMX4) cream Topical Q1H PRN Jacques Muñiz MD lidocaine 1 % 0.1-1 mL 0.1-1 mL Other Q1H PRN Jacques Muñiz MD mycophenolate (GENERIC EQUIVALENT) capsule 500 mg 500 mg Oral BID Jacques Muñiz MD 500 mg at 05/06/24 0809 naloxone (NARCAN) injection 0.2 mg 0.2 mg Intravenous Q2 Min PRN Rosalee Anglin DO Or naloxone (NARCAN) injection 0.4 mg 0.4 mg Intravenous Q2 Min PRN Rosalee Anglin DO Or naloxone (NARCAN) injection 0.2 mg 0.2 mg Intramuscular Q2 Min PRN Rosalee Gilmore DO Or naloxone (NARCAN) injection 0.4 mg 0.4 mg Intramuscular Q2 Min PRN Rosalee Gilmore DO ondansetron (ZOFRAN ODT) ODT tab 4 mg 4 mg Oral Q6H PRN Jacques Muñiz MD Or ondansetron (ZOFRAN) injection 4 mg 4 mg Intravenous Q6H PRN Jacques Muñiz MD oxyCODONE (ROXICODONE) tablet 10 mg 10 mg Oral Q4H PRN Rosalee Anglin, DO 10 mg at 05/05/24 2301 oxyCODONE (ROXICODONE) tablet 5 mg 5 mg Oral Q4H PRN Rosalee Anglin, DO 5 mg at 05/05/24 1802 predniSONE (DELTASONE) tablet 5 mg 5 mg Oral Daily Slava Rodriguez MD 5 mg at 05/06/24 0807 prochlorperazine (COMPAZINE) injection 5 mg 5 mg Intravenous Q6H PRN Jacques Muñiz MD Or prochlorperazine (COMPAZINE) tablet 5 mg 5 mg Oral Q6H PRN Jacques Muñiz MD Or prochlorperazine (COMPAZINE) suppository 12.5 mg 12.5 mg Rectal Q12H PRN Jacques Muñiz MD senna-docusate (SENOKOT-S/PERICOLACE) 8.6-50 MG per tablet 1 tablet 1 tablet Oral BID PRN Jacques Muñiz MD Or senna-docusate (SENOKOT-S/PERICOLACE) 8.6-50 MG per tablet 2 tablet 2 tablet Oral BID PRN Jacques Muñiz MD sodium chloride (PF) 0.9% PF flush 3 mL 3 mL Intracatheter Q8H Jacques Muñiz MD 3 mL at 05/06/24 0517 sodium chloride (PF) 0.9% PF flush 3 mL 3 mL Intracatheter q1 min prn Jacques Muñiz MD 3mL at 05/06/24 1020 tacrolimus (GENERIC EQUIVALENT) capsule 2 mg 2 mg Oral QAM Jacques Muñiz MD 2 mg at 05/06/24 0808 And tacrolimus (GENERIC EQUIVALENT) capsule 1 mg 1 mg Oral QPM Jacques Muñiz MD 1 mg at 05/05/242102 [Held by provider] traZODone (DESYREL) tablet 50-100 mg 50-100 mg Oral At Bedtime Jacques Muñiz MD zolpidem (AMBIEN) tablet 5 mg 5 mg Oral At Bedtime Rosalee Palma DO 5 mg at 05/04/24 2300 Physical Exam: Temp: 98.5 ??F (36.9 ??C) Temp src: Oral BP: (!) 142/78 (1st attempt was 141/69) Pulse: 84 Resp: 18SpO2: 98 % O2 Device: None (Room air) Wt: Wt Readings from Last 2 Encounters: 05/05/24 58.4 kg (128 lb 12.8 oz) 01/12/24 62 kg (136 lb 11.2 oz) General: Well appearing female in NAD. Answers appropriately. HEENT: Head is AT/NC. Sclera anicteric. No conjunctival injection. Oropharynx is clear, moist and w/o exudate or lesions. Neck: No masses Chest: breathing comfortably on RA, speaking in full sentences Abdomen: Soft, non-tender, non-distended. BS +. No hepatosplenomegaly. No rebound or peritoneal signs. Her left back was palpated with no pain illicited (lidocaine patch present) Extremities: WWP, no pedal edema. Skin: No jaundice or rash Neurologic: Grossly non-focal. CN 2-12 grossly intact. Data: Labs and imaging below were independently reviewed and interpreted LAB WORK: BMP Recent Labs Lab 05/06/24 0836 05/06/24 0801 05/06/24 0155 05/05/24 2140 05/05/24 0916 05/05/24 0824 05/04/24 0922 05/04/24 0750 05/03/24 1213 05/03/24 1106 NA 140 -- -- -- -- 142 -- 142 -- 140 POTASSIUM 3.6 -- -- -- -- 3.6 -- 4.3 -- 4.3 CHLORIDE 109* -- -- -- -- 112* -- 110* -- 108* MIMI 8.7* -- -- -- -- 8.5* -- 8.6* -- 8.9 CO2 22 -- -- -- -- 19* -- 20* -- 25 BUN 9.8 -- -- -- -- 9.6 -- 8.8 -- 7.4* CR 1.30* -- -- -- -- 1.32* -- 1.29* -- 1.32* GLC 97 93 107* 94 < > 103* < > 147* < > 105* < > = values in this interval not displayed. CBC Recent Labs Lab 05/06/24 0836 05/03/24 1106 05/02/24 1323 WBC 8.7 6.4 7.7 RBC 4.59 4.38 4.97 HGB 11.8 11.1* 13.2 HCT 37.3 35.2 39.7 MCV 81 80 80 MCH 25.7* 25.3* 26.6 MCHC 31.6 31.5 33.2 RDW 14.7 14.3 13.9 PLT 277 237 272 INRNo lab results found in last 7 days. LFTs Recent Labs Lab 05/06/24 0836 05/05/24 0824 05/04/24 0750 05/03/24 1106 ALKPHOS 39* 40 46 48 AST 16 16 15 20 ALT 7 7 8 9 BILITOTAL 0.2 0.3 0.2 0.3 PROTTOTAL 5.6* 5.4* 5.8* 5.9* ALBUMIN 3.6 3.4* 3.7 3.6 PANC Recent Labs Lab 05/04/24 0750 05/02/24 1323 LIPASE 21 27 IMAGING: EXAM: MR ABDOMEN MRCP W/O and W CONTRAST LOCATION: [facility] DATE: 05/03/2024 INDICATION: history of liver and kidney transplants; presented with generalized weakness, recent fever and GI symptoms; CT abdomen pelvis with increasing bile duct dilatation and concern for pyelonephritis w renal abcess; LFTs normal, creatinine up slightly COMPARISON: CT from 05/02/2024. TECHNIQUE: Routine MR liver/pancreas protocol including axial and coronal MRCP sequences. 2D and 3Dreconstruction performed by MR technologist including MIP reconstruction [...] a T2 hyperintense focus in the liver hilumadjacent to the proximal extrahepatic common bile duct [...] of previously described infarct. Normal adrenals. Atrophic cher[place]ae [place] kidneys. Right lower quadrant transplant kidney with hypoenhancement of the lower pole cortex and a multilocular fluid collection in the ventral lower pole measuring 2.2 x1.9 cm on image 6 of series 19. Normal caliber bowel. Normal caliber abdominal aorta. Distal colonic diverticulosis. Normal bladder. No acute osseous findings. IMPRESSION: 1. Intrahepatic and extrahepatic biliary ductal dilatation. Redemonstrated diffuse pancreatic ductal dilatation. No obstructing stone. 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 Given abnormal liver function tests, ERCP should be considered in further evaluation. 2. Findings suspicious for a 2.2 cm abscess in the ventral aspect of the patient's right pelvic transplant kidney. * Leyda Mckenzie MD - 05/06/2024 8:26 AM CDTAssociated Order(s): INTERVENTIONAL RADIOLOGY ADULT/PEDS IP CONSULT Consult received for renal transplant abscess. Imaging reviewed. Small abscess of the RLQ renal transplant visible on contrast enhanced CT and MRI but not visible by US which would be the ideal modality to perform aspiration. Abscess is small on imaging from 05/02/24. Patient currently on broad spectrum antibiotics. Recommend conservative management with antibiotics and repeat imaging as clinically indicated. If collection enlarges despite antibiotics, aspiration could be considered. * Chelly Berkowitz MD - 05/06/2024 7:40 AM CDTAssociated Order(s): INFECTIOUS DISEASES IP CONSULT Images from the original note were not included. [facility] Infectious Disease Consultation Date of Admission: 05/02/2024 Date of Consult : 05/06/24 Assessment: 73 YF with history of liver / kidney transplant-on immunosuppressive therapy with Mycophenolate, Tacrolimus and low dose prednisone, CKD and diabetes among other medical conditions, who has been hospitalized with generalized weakness and lightheadedness, and had imaging findings concerning for an obstructive process in the biliary tree as well as potential abscess of her transplanted kidney. -Possible abscess of the renal transplant kidney in the right pelvis -Intrahepatic and extrahepatic biliary ductal dilatation with diffuse pancreatic ductal dilatation and ampullary stricture -Kidney/liver transplant, on mmunosuppressive therapy with Mycophenolate, Tacrolimus and low dose prednisone -Chronic medical conditions - CKD, diabetes, HTN Recommendations: Please consult IR for aspirate of renal transplant kidney Discontinue Zosyn Treat with Ceftriaxone Further antibiotic modification will be made based on cx data Follow blood cxs Recommendations were discussed with the hospitalist service Chelly Berkowitz MD Reason for Consult Reason for consult: I was asked to evaluate this patient for renal abscess of transplant kidney. Primary Care Physician Physician No Ref-Primary Chief Complaint Weakness and light headedness History is obtained from the patient and medical records History of Present Illness Catarina Almeida is a 73 year old female with history of liver / kidney transplant-on immunosuppressive therapy with Mycophenolate, Tacrolimus and low dose prednisone, CKD and diabetes among other medical conditions, who has been hospitalized with generalized weakness and lightheadedness, and had imaging findings concerning for an obstructive process in the biliary tree as well as potential abscessof her transplanted kidney. Patient has remained afebrile and without leukocytosis, no other markers of infection or sepsis. CTchest abdomen pelvis showed Worsening intrahepatic and extrahepatic biliary ductal dilatation. Increasing dilatation of the main pancreatic duct. Findings may be secondary to an obstructive process at the ampulla. Right lower quadrant renal transplant demonstrates new area of patchy hyperenhancement with a complex hypoattenuating collection. Findings could represent pyelonephritis with an associated renal abscess. CT findings were confirmed on MRCP. Patient has been initiated on zosyn. Blood cx is with no growthso far. GI and Nephrology have been consulted. EGD/EUS is planned. Liver enzymes have remained stable ID has been asked to assess patient for renal abscess Antimicrobial therapy 05/03 Zosyn Past Medical History I have reviewed this patient's medical history and updated it with pertinent information if needed. Past Medical History: Diagnosis Date Benign essential hypertension CHRONIC AIRWAY OBSTRUCTION Diabetes mellitus, type 2 (H) Diverticulitis of colon Genital herpes, unspecified HEPATITIS C LUMB/LUMBOSAC DISC DISEASE L and C spine Pyelonephritis S/P kidney transplant S/P liver transplant (H) Unspecified hypothyroidism Past Surgical History I have reviewed this patient's surgical history and updated it with pertinent information if needed. 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 Taking? ALENDRONATE SODIUM 70 MG OR TABS More than a month at ran out No Yes Si TABLET WEEKLY ON AN EMPTY STOMACH Patient taking differently: Take 70 mg by mouth every 7 days Semaglutide, 2 MG/DOSE, (OZEMPIC, 2 MG/DOSE,) 8 MG/3ML pen 04/26/2024 Yes Yes Sig: Inject 2 mg Subcutaneous every 7 days acyclovir (ZOVIRAX) 400 MG tablet at prn No Yes Sig: ONE TABLET 3 TIMES DAILY x 5 days Patient taking differently: Take 400 mg by mouth 3 times daily as needed ONE TABLET 3 TIMES DAILY x5 days amLODIPine (NORVASC) 5 MG tablet 05/01/2024 Yes Yes Sig: Take 5 mg by mouth every evening carvedilol (COREG) 12.5 MG tablet 05/01/2024 Yes Yes Sig: Take 12.5 mg by mouth One to two times daily fluticasone (FLONASE) 50 MCG/ACT nasal spray at prn Yes Yes Sig: [place] 1 spray into both nostrils daily as needed for rhinitis or allergies insulin aspart (NOVOLOG PEN) 100 UNIT/ML pen 05/02/2024 at am Yes Yes Sig: Inject 8 Units subcutaneously 3 times daily (with meals) plus sliding scale insulin glargine (LANTUS PEN) 100 UNIT/ML pen 05/02/2024 at am Yes Yes Sig: Inject 20 Units subcutaneously every morning levothyroxine (SYNTHROID/LEVOTHROID) 75 MCG tablet 05/02/2024 at am Yes Yes Sig: Take 75 mcg by mouth daily mycophenolate (GENERIC EQUIVALENT) 250 MG capsule 05/02/2024 at am No Yes Sig: Take 2 capsules (500 mg) by mouth 2 times daily predniSONE (DELTASONE) 5 MG tablet 05/02/2024 No Yes Sig: Take 1 tablet (5 mg) by mouth daily tacrolimus (GENERIC EQUIVALENT) 1 MG capsule 05/02/2024 at am No Yes Sig: Take 2 capsules (2 mg) by mouth every morning AND 1 capsule (1 mg) every evening. traZODone (DESYREL) 50 MG tablet 05/01/2024 Yes Yes Sig: Take 50-100 mg by mouth at bedtime Facility-Administered Medications: None Allergies No Known Allergies Immunization History Immunization History Administered Date(s) Administered COVID-19 MONOVALENT 12+ (Pfizer) 11/20/2020, 01/04/2021, 08/16/2021 Influenza (IIV3) PF 08/04/2006 Social History I have reviewed this patient's social history and updated it with pertinent information if needed. Catarina Devan Almeida reports that she has never smoked. She has never used smokeless tobacco. She reports current alcohol use. She reports current drug use. Drug: Marijuana. Family History I have reviewed this patient's family history and updated it with pertinent information if needed. Family History Problem Relation Age of Onset Respiratory Mother copd Review of Systems The 10 point Review of Systems is negative Physical Exam Temp: 99 ??F (37.2 ??C) Temp src: Oral BP: 116/62 Pulse: 86 Resp: 18 SpO2: 93 % O2 Device: None (Room air) Vital Signs with Ranges Temp: [98.1 ??F (36.7 ??C)-99 ??F (37.2 ??C)] 99 ??F (37.2 ??C) Pulse: [80-89] 86 Resp: [18] 18 BP: (116-135)/(62-72) 116/62 SpO2: [93 %-99 %] 93 % 128 lbs 12.8 oz Body mass index is 22.82 kg/m??. GENERAL APPEARANCE: awake EYES: Eyes grossly normal to inspection NECK: no adenopathy RESP: lungs clear CV: regular rates and rhythm LYMPHATICS: normal ant/post cervical and supraclavicular nodes ABDOMEN: soft, nontender MS: extremities normal SKIN: no suspicious lesions or rashes Data All laboratory data reviewed Component Latest Ref Rng 05/05/2024 8:24 AM Sodium 135 - 145 mmol/L 142 Potassium 3.4 - 5.3 mmol/L 3.6 Carbon Dioxide (CO2) 22 - 29 mmol/L 19 (L) Anion Gap 7 - 15 mmol/L 11 Urea Nitrogen 8.0 - 23.0 mg/dL 9.6 Creatinine 0.51 - 0.95 mg/dL 1.32 (H) GFR Estimate >60 mL/min/1.73m2 43 (L) Calcium 8.8 - 10.4 mg/dL 8.5 (L) Chloride 98 - 107 mmol/L 112 (H) Glucose 70 - 99 mg/dL 103 (H) Alkaline Phosphatase 40 - 150 U/L 40 AST 0 - 45 U/L 16 ALT 0 - 50 U/L 7 Protein Total 6.4 - 8.3 g/dL 5.4 (L) Albumin 3.5 - 5.2 g/dL 3.4 (L) Bilirubin Total <=1.2 mg/dL 0.3 Component Latest Ref Rng 05/03/2024 11:06 AM WBC 4.0 - 11.0 10e3/uL 6.4 RBC Count 3.80 - 5.20 10e6/uL 4.38 Hemoglobin 11.7 - 15.7 g/dL 11.1 (L) Hematocrit 35.0 - 47.0 % 35.2 MCV 78 - 100 fL 80 MCH 26.5 - 33.0 pg 25.3 (L) MCHC 31.5 - 36.5 g/dL 31.5 RDW 10.0 - 15.0 % 14.3 Platelet Count 150 - 450 10e3/uL 237 Component Latest Ref Rng 05/04/2024 7:50 AM Lipase 13 - 60 U/L 21 CRP Inflammation <5.00 mg/L <3.00 Microbiology 05/03/2024 1939 05/05/2024 0456 Urine Culture [[id number]] Urine, Midstream Final result Component Value Culture No Growth 05/02/2024 1711 05/05/2024 1716 Blood Culture Line, venous [[id number]] Blood from Line, venous Preliminary result Component Value Culture No growth after 3 days P 05/02/2024 1337 05/02/2024 1427 Symptomatic Influenza A/B, RSV, & SARS-CoV2 PCR (COVID-19) Nasopharyngeal [[id number]] Swab from Nasopharyngeal Final result Component Value Influenza A PCR Negative Influenza B PCR Negative RSV PCR Negative SARS CoV2 PCR Negative Imaging CT CHEST PE ABDOMEN PELVIS W CONTRAST 05/02/2024 3:00 PM CLINICAL HISTORY: Shortness of breath, LLQ abd pain TECHNIQUE: TECHNIQUE: CT angiogram chest and routine CT abdomen pelvis with IV contrast. Arterial phase through the chest and venous phase through the abdomen and pelvis. 2D and 3D MIP reconstructions were performed by the architectural technologist. Dose reduction techniques were used. CONTRAST: [...] GLANDS: No significant nodules. KIDNEYS/BLADDER: Atrophic bilateral cher[place] kidneys which are symmetrically enhancing without hydronephrosis. [...] immunosuppression, or patients with known primary cancer. EXAM: US RENAL TRANSPLANT WITH DOPPLER LOCATION: [facility] DATE: 05/02/2024 INDICATION: Right lower quadrant renal [...] transplant resistive index (RI) is borderline ranging between0.74-0.83. The transplant renal vein is patent without stenosis. Patent right iliac artery and vein above and below the anastomosis. IMPRESSION: 1. Normal sonographic appearance of the [...] Borderline resistive indices in the renal allograft. EXAM: MR ABDOMEN MRCP W/O and W CONTRAST LOCATION: [facility] DATE: 05/03/2024 INDICATION: history of liver and kidney transplants; presented with generalized weakness, recent fever and GI symptoms; CT abdomen pelvis with increasing bile duct dilatation and concern for pyelonephritis w renal abcess; LFTs normal, creatinine up slightly COMPARISON: CT from 05/02/2024. TECHNIQUE: Routine MR liver/pancreas protocol including axial and coronal MRCP sequences. 2D and 3Dreconstruction performed by MR technologist including MIP reconstruction [...] a T2 hyperintense focus in the liver hilumadjacent to the proximal extrahepatic common bile duct [...] of previously described infarct. Normal adrenals. Atrophic cher[place] kidneys. Right lower quadrant transplant kidney with hypoenhancement of the lower pole cortex and a multilocular fluid collection in the ventral lower pole measuring 2.2 x1.9 cm on image 6 of series 19. Normal caliber bowel. Normal caliber abdominal aorta. Distal colonic diverticulosis. Normal bladder. No acute osseous findings. IMPRESSION: 1. Intrahepatic and extrahepatic biliary ductal dilatation. Redemonstrated diffuse pancreatic ductal dilatation. No obstructing stone. 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 Given abnormal liver function tests, ERCP should be considered in further evaluation. 2. Findings suspicious for a 2.2 cm abscess in the ventral aspect of the patient's right pelvic transplant kidney. * Jacques Iniguez MD - 05/03/2024 4:56 PM CDTAssociated Order(s): NEPHROLOGY IP CONSULT Nephrology Consultation Catarina Almeida Date of : 1950 Age: [age] year old Date of Admission: 05/02/2024 Reason for consult: I was asked by Dr. Anglin to evaulate this patient for renal transplant status. Assessment and Plan: 1. Dual organ transplant. She is followed at the [facility] both in the liver and the kidney service. She has been maintained on prednisone tacrolimus and CellCept. Her creatinine is higher than baseline. On 01/26 creatinine was 1.22 and is now 1.32. Her last tacrolimus level was low. We will continue her CellCept and tacrolimus at current doses and check a tacrolimus trough level in the morning. I will stop oral prednisone and put her on stress dose steroids. I am going to give hernormal saline at 100 mL an hour for 1.5 L to make sure she is hydrated and avoid any prerenal scenario. 2. Recent COVID. She does not appear to have respiratory symptoms at this point. 3. Hypertension: Her amlodipine and carvedilol are currently on hold. Will monitor her blood pressure and add these back as needed. Her current blood pressure is 129/68 with a pulse of 95. 4. Infectious diseases: She is on Zosyn. She had abnormal CT scan which suggested pyelonephritis orabscess in the right lower quadrant allograft. However on exam her right lower quadrant is benign when I palpate the allograft or like directly there is no tenderness. She does not have an elevated white count. Her urinalysis is negative for protein and blood and has no cells. Therefore pyelonephritis is doubtful. We will send a urine culture however and await results of blood cultures. I agree with continuing Zosyn for now. I will check CMV. Chief Complaint: Weakness and dizziness History is obtained from the patient and electronic health record History of Present Illness: This patient is a 73 year old female who presents with weakness and dizziness. She is 2 weeks out from a COVID infection. She was transplanted in 2017, dual organ liver kidney transplant done at [facility] in [place]. She has been maintained on CellCept prednisone and tacrolimus. She has chronic kidney disease stage IIIa with a baseline GFR of 47. She has had some decline in GFR acutely down to 43 with a creatinine bumping from 1.22 baseline to 1.32. She has been seen by internal medicine and the GI service and they were evaluating her for liver abnormalities on CT scan. She currently is on Zosyn. She is feeling improved. She has some pain and tenderness in the epigastrium and left upper quadrant. She has hypertension and has been on amlodipine and carvedilol. Comorbidities include hypertension diabetes hypothyroidism chronic kidney disease stage IIIa and liver kidney transplant. Past Medical History: Past Medical History: Diagnosis Date Benign essential hypertension CHRONIC AIRWAY OBSTRUCTION Diabetes mellitus, type 2 (H) Diverticulitis of colon Genital herpes, unspecified HEPATITIS C LUMB/LUMBOSAC DISC DISEASE L and C spine Pyelonephritis S/P kidney transplant S/P liver transplant (H) Unspecified hypothyroidism Past Surgical History: Past Surgical History: Procedure Laterality Date IR PARACENTESIS 08/01/2015 IR PARACENTESIS 10/19/2016 IR PARACENTESIS 08/28/2015 IR PARACENTESIS 11/16/2015 IR PARACENTESIS 11/19/2015 IR PARACENTESIS 11/30/2015 IR PARACENTESIS 10/07/2016 LIVER TRANSPLANTATION 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, s/p OLT 12/30/2016 SC TRANSPLANTATION OF KIDNEY ZZC APPENDECTOMY Social History: Social History Tobacco Use Smoking status: Never Smokeless tobacco: Never Tobacco comments: second hand smoke Substance Use Topics Alcohol use: Yes Comment: rare Family History: Family History Problem Relation Age of Onset Respiratory Mother copd Allergies: No Known Allergies Medications: Current Facility-Administered Medications Medication Dose Route Frequency Provider Last Rate Last Admin hydrocortisone sodium succinate PF (solu-CORTEF) injection 100 mg 100 mg Intravenous Q8H Jacques Iniguez MD insulin aspart (NovoLOG) injection (RAPID ACTING) 1-7 Units Subcutaneous TID AC Jacques Muñiz MD insulin aspart (NovoLOG) injection (RAPID ACTING) 1-5 Units Subcutaneous At Bedtime Rachel Muñiz MD insulin aspart (NovoLOG) injection (RAPID ACTING) 4 Units Subcutaneous TID w/meals Jacques Muñiz MD insulin glargine (LANTUS PEN) injection 10 Units 10 Units Subcutaneous QAM Jacques Muñiz MD 10 Units at 05/03/24 0909 levothyroxine (SYNTHROID/LEVOTHROID) tablet 75 mcg 75 mcg Oral or NG Tube Daily Jacques Muñiz MD 75 mcg at 05/03/24 0908 mycophenolate (GENERIC EQUIVALENT) capsule 500 mg 500 mg Oral BID Jacques Muñiz MD 500 mg at 05/03/24 0907 piperacillin-tazobactam (ZOSYN) 2.25 g vial to attach to NS 100 ml bag 2.25 g Intravenous Q6H Jacques Muñiz MD 2.25 g at 05/03/24 1308 sodium chloride (PF) 0.9% PF flush 3 mL 3 mL Intracatheter Q8H Jacques Muñiz MD 3 mL at 05/03/24 1310 tacrolimus (GENERIC EQUIVALENT) capsule 2 mg 2 mg Oral QAM Jacques Muñiz MD 2 mg at 05/03/24 0907 And tacrolimus (GENERIC EQUIVALENT) capsule 1 mg 1 mg Oral QPM Jacques Muñiz MD 1 mg at 05/02/24 2250 traZODone (DESYREL) tablet 50-100 mg 50-100 mg Oral At Bedtime Jacques Muñiz MD Current Facility-Administered Medications Medication Dose Route Frequency Provider Last Rate Last Admin acetaminophen (TYLENOL) tablet 650 mg 650 mg Oral Q4H PRN Jacques Muñiz MD Or acetaminophen (TYLENOL) Suppository 650 mg 650 mg Rectal Q4H PRN Jacques Muñiz MD calcium carbonate (TUMS) chewable tablet 1,000 mg 1,000 mg Oral 4x Daily PRN Jacques Muñiz MD glucose gel 15-30 g 15-30 g Oral Q15 Min PRN Jacques Muñiz MD Or dextrose 50 % injection 25-50 mL 25-50 mL Intravenous Q15 Min PRN Jacques Muñiz MD Or glucagon injection 1 mg 1 mg Subcutaneous Q15 Min PRN Jacques Muñiz MD HYDROmorphone (DILAUDID) injection 0.2 mg 0.2 mg Intravenous Q3H PRN Rosalee Gilmore DO 0.2 mg at 05/03/24 1012 HYDROmorphone (DILAUDID) tablet 2-4 mg 2-4 mg Oral Q3H PRN Rosalee Anglin DO lidocaine (LMX4) cream Topical Q1H PRN Jacques Muñiz MD lidocaine 1 % 0.1-1 mL 0.1-1 mL Other Q1H PRN Jacques Muñiz MD naloxone (NARCAN) injection 0.2 mg 0.2 mg Intravenous Q2 Min PRN Rosalee Anglin DO Or naloxone (NARCAN) injection 0.4 mg 0.4 mg Intravenous Q2 Min PRN Rosalee Anglin, Or naloxone (NARCAN) injection 0.2 mg 0.2 mg Intramuscular Q2 Min PRN Rosalee Gilmore, Or naloxone (NARCAN) injection 0.4 mg 0.4 mg Intramuscular Q2 Min PRN Rosalee Gilmore, DO ondansetron (ZOFRAN ODT) ODT tab 4 mg 4 mg Oral Q6H PRN Jacques Muñiz MD Or ondansetron (ZOFRAN) injection 4 mg 4 mg Intravenous Q6H PRN Jacques Muñiz MD prochlorperazine (COMPAZINE) injection 5 mg 5 mg Intravenous Q6H PRN Jacques Muñiz MD Or prochlorperazine (COMPAZINE) tablet 5 mg 5 mg Oral Q6H PRN Jacques Muñiz MD Or prochlorperazine (COMPAZINE) suppository 12.5 mg 12.5 mg Rectal Q12H PRN Jacques Muñiz MD senna-docusate (SENOKOT-S/PERICOLACE) 8.6-50 MG per tablet 1 tablet 1 tablet Oral BID PRN Jacques Muñiz MD Or senna-docusate (SENOKOT-S/PERICOLACE) 8.6-50 MG per tablet 2 tablet 2 tablet Oral BID PRN Jacques Muñiz MD sodium chloride (PF) 0.9% PF flush 3 mL 3 mL Intracatheter q1 min prn Jacques Muñiz MD zolpidem (AMBIEN) tablet 5 mg 5 mg Oral At Bedtime PRN Rosalee Anglin, DO Review of Systems: She complains of some pain in the left upper quadrant and flank as well as the epigastrium. She hasno pain at the site of the allograft kidney in the right lower quadrant. She denies urinary symptoms. She is not short of breath. Physical Exam: Vitals were reviewed Temp: 97.3 ??F (36.3 ??C) Temp src: Oral BP: 129/68 Pulse: 95 Resp: 18 SpO2: 96 % O2 Device: None (Room air) Blood pressure range: Systolic (24hrs), Av , Min:111 , Max:140 Blood pressure range: Diastolic (24hrs), Av, Min:67, Max:97 Intake/Output Summary (Last 24 hours) at 05/03/2024 1657 Last data filed at 05/03/2024 1300 Gross per 24 hour Intake 818.75 ml Output -- Net 818.75 ml She is alert and quite comfortable in bed, she is not on oxygen Head shows no trauma Eyes show pupils round and react to light Neck is supple Lungs show clear anterior breath sounds Cardiac exam regular rhythm normal S1-S2 no murmur Abdomen shows well-healed surgical incisions in the epigastrium and upper quadrant on the right from the liver transplant in the right lower quadrant from the kidney transplant there are normal bowelsounds the allograft kidney is palpated and is nontender Lower extremities show no edema Data: Results for orders placed or performed during the hospital encounter of 05/02/24 (from the past 24 hour(s)) Lactic acid whole blood Result Value Ref Range Lactic Acid 0.6 (L) 0.7 - 2.0 mmol/L Blood Culture Line, venous Specimen: Line, venous; Blood Result Value Ref Range Culture No growth after 12 hours Glucose by meter Result Value Ref Range GLUCOSE BY METER POCT 117 (H) 70 - 99 mg/dL MR Abdomen MRCP w/o & w Contrast Narrative EXAM: MR ABDOMEN MRCP W/O and W CONTRAST LOCATION: [facility] DATE: 05/03/2024 INDICATION: history of liver and kidney transplants; presented with generalized weakness, recent fever and GI symptoms; CT abdomen pelvis with increasing bile duct dilatation and concern for pyelonephritis w renal abcess; LFTs normal, creatinine up slightly COMPARISON: CT from 05/02/2024. TECHNIQUE: Routine MR liver/pancreas protocol including axial and coronal MRCP sequences. 2D and 3Dreconstruction performed by MR technologist including MIP reconstruction [...] a T2 hyperintense focus in the liver hilumadjacent to the proximal extrahepatic common bile duct [...] of previously described infarct. Normal adrenals. Atrophic [place] kidneys. Right lower quadrant transplant kidney with hypoenhancement of the lower pole cortex and a multilocular fluid collection in the ventral lower pole measuring 2.2 x1.9 cm on image 6 of series 19. Normal caliber bowel. Normal caliber abdominal aorta. Distal colonic diverticulosis. Normal bladder. No acute osseous findings. Impression IMPRESSION: 1. Intrahepatic and extrahepatic biliary ductal dilatation. Redemonstrated diffuse pancreatic ductal dilatation. No obstructing stone. 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 Given abnormal liver function tests, ERCP should be considered in further evaluation. 2. Findings suspicious for a 2.2 cm abscess in the ventral aspect of the patient's right pelvic transplant kidney. EKG 12-lead, tracing only Result Value Ref Range Systolic Blood Pressure mmHg Diastolic Blood Pressure mmHg Ventricular Rate 81 BPM Atrial Rate 81 BPM SC Interval 174 ms QRS Duration 102 ms QT 462 ms QTc 536 ms P Horace 73 degrees R AXIS 260 degrees T Horace 246 degrees Interpretation ECG Sinus rhythm Right atrial enlargement Right superior axis deviation Pulmonary disease pattern Marked T wave abnormality, consider inferior ischemia Marked T wave abnormality, consider anterolateral ischemia Prolonged QT Abnormal ECG When compared with ECG of 02-May-2024 15:26, Incomplete right bundle branch block is no longer Present Criteria for Septal infarct are no longer Present Confirmed by MD SALAZAR GREGORY ([id number]) on 05/03/2024 9:49:25 AM Glucose by meter Result Value Ref Range GLUCOSE BY METER POCT 101 (H) 70 - 99 mg/dL CBC with platelets Result Value Ref Range WBC Count 6.4 4.0 - 11.0 10e3/uL RBC Count 4.38 3.80 - 5.20 10e6/uL Hemoglobin 11.1 (L) 11.7 - 15.7 g/dL Hematocrit 35.2 35.0 - 47.0 % MCV 80 78 - 100 fL MCH 25.3 (L) 26.5 - 33.0 pg MCHC 31.5 31.5 - 36.5 g/dL RDW 14.3 10.0 - 15.0 % Platelet Count 237 150 - 450 10e3/uL Comprehensive metabolic panel Result Value Ref Range Sodium 140 135 - 145 mmol/L Potassium 4.3 3.4 - 5.3 mmol/L Carbon Dioxide (CO2) 25 22 - 29 mmol/L Anion Gap 7 7 - 15 mmol/L Urea Nitrogen 7.4 (L) 8.0 - 23.0 mg/dL Creatinine 1.32 (H) 0.51 - 0.95 mg/dL GFR Estimate 43 (L) >60 mL/min/1.73m2 Calcium 8.9 8.8 - 10.4 mg/dL Chloride 108 (H) 98 - 107 mmol/L Glucose 105 (H) 70 - 99 mg/dL Alkaline Phosphatase 48 40 - 150 U/L AST 20 0 - 45 U/L ALT 9 0 - 50 U/L Protein Total 5.9 (L) 6.4 - 8.3 g/dL Albumin 3.6 3.5 - 5.2 g/dL Bilirubin Total 0.3 <=1.2 mg/dL Magnesium Result Value Ref Range Magnesium 2.1 1.7 - 2.3 mg/dL Glucose by meter Result Value Ref Range GLUCOSE BY METER POCT 124 (H) 70 - 99 mg/dL * Maurizio Palmer PA - 05/03/2024 8:31 AM CDT [facility] Gastroenterology Consultation Catarina Almeida [id number] [address] [facility] [id number] 73 year old female Admission Date/Time: 05/02/2024 Primary Care Provider: No Ref-Primary, Physician Referring / Attending Physician: Dr. Muñiz We were asked to see the patient in consultation by Dr. Muñiz for evaluation of Abnormal CT findings, Dilated biliary and pancreatic ductal system. CC: Generalized weakness HPI: Catarina Almeida is a 73 year old female with a history of liver transplant and kidney transplant, chronic kidney disease stage 3, hypertension, diabetes mellitus type 2, and hypothyroidism who presented to the ER with generalized weakness and lightheadedness. She has not been feeling well for about 2 weeks. She states that she developed a cough, shortness of breath, fever, and generalized weakness on April 18. The following day she tested positive for COVID on a home COVID test. She states she felt quite ill for several days. The fever resolved after a day or so but she continued to have intermittent chills, cough, shortness of breath, poor appetite, nausea, diarrhea, and generalized weakness. Her GI symptoms improved 2 or 3 days ago and she has been able to increase oral intake somewhat. She started coughing up some blood the day prior to admission. She was seen and evaluated in theER and ultimately discharged home. Her symptoms persisted and she came back into the ER on 05/02/2024 for evaluation. In the ER she was mildly tachycardic but other vitals were okay. Labs showed a normal CBC, negativeUA, significantly elevated BNP, mildly elevated troponin. CT chest/abdomen/pelvis was negative for pulmonary embolism but did show worsening intra hepatic and extrahepatic biliary ductal dilatation as well as increasing dilatation of the main pancreatic duct. It also showed findings in her right low er quadrant renal transplant that could represent pyelonephritis with associated renal abscess. Renal transplant ultrasound was obtained and was normal. She was started on Zosyn due to concern for pyelonephritis/abscess. We were contacted regarding the biliary tree dilatation, agreed with IV antibiotics, recommended MRCP, potential need for EGD/EUS. ROS: A comprehensive ten point review of systems was negative aside from those in mentioned in the HPI. PAST MED HX: I have reviewed this patient's medical history and updated it with pertinent information if needed. 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 Taking? ALENDRONATE SODIUM 70 MG OR TABS More than a month at ran out No Yes Si TABLET WEEKLY ON AN EMPTY STOMACH Patient taking differently: Take 70 mg by mouth every 7 days Semaglutide, 2 MG/DOSE, (OZEMPIC, 2 MG/DOSE,) 8 MG/3ML pen 04/26/2024 Yes Yes Sig: Inject 2 mg Subcutaneous every 7 days acyclovir (ZOVIRAX) 400 MG tablet at prn No Yes Sig: ONE TABLET 3 TIMES DAILY x 5 days Patient taking differently: Take 400 mg by mouth 3 times daily as needed ONE TABLET 3 TIMES DAILY x5 days amLODIPine (NORVASC) 5 MG tablet 05/01/2024 Yes Yes Sig: Take 5 mg by mouth every evening carvedilol (COREG) 12.5 MG tablet 05/01/2024 Yes Yes Sig: Take 12.5 mg by mouth One to two times daily fluticasone (FLONASE) 50 MCG/ACT nasal spray at prn Yes Yes Sig: [place] 1 spray into both nostrils daily as needed for rhinitis or allergies insulin aspart (NOVOLOG PEN) 100 UNIT/ML pen 05/02/2024 at am Yes Yes Sig: Inject 8 Units subcutaneously 3 times daily (with meals) plus sliding scale insulin glargine (LANTUS PEN) 100 UNIT/ML pen 05/02/2024 at am Yes Yes Sig: Inject 20 Units subcutaneously every morning levothyroxine (SYNTHROID/LEVOTHROID) 75 MCG tablet 05/02/2024 at am Yes Yes Sig: Take 75 mcg by mouth daily mycophenolate (GENERIC EQUIVALENT) 250 MG capsule 05/02/2024 at am No Yes Sig: Take 2 capsules (500 mg) by mouth 2 times daily predniSONE (DELTASONE) 5 MG tablet 05/02/2024 No Yes Sig: Take 1 tablet (5 mg) by mouth daily tacrolimus (GENERIC EQUIVALENT) 1 MG capsule 05/02/2024 at am No Yes Sig: Take 2 capsules (2 mg) by mouth every morning AND 1 capsule (1 mg) every evening. traZODone (DESYREL) 50 MG tablet 05/01/2024 Yes Yes Sig: Take 50-100 mg by mouth at bedtime Facility-Administered Medications: None ALLERGIES: No Known Allergies SOCIAL HISTORY: Social History Tobacco Use Smoking status: Never Smokeless tobacco: Never Tobacco comments: second hand smoke Substance Use Topics Alcohol use: Yes Comment: rare Drug use: Yes Types: Marijuana FAMILY HISTORY: Family History Problem Relation Age of Onset Respiratory Mother copd PHYSICAL EXAM: Vital Signs with Ranges Temp: 98.1 ??F (36.7 ??C) Temp src: Oral BP: 124/67 Pulse: 83 Resp: 18 SpO2: 96 % O2 Device: None (Room air) I/O last 3 completed shifts: In: 98.75 [I.V.:98.75] Out: - Constitutional: Alert, oriented to person, place, date, situation. Cooperative, lying in bed in NAD. Respiratory: Lungs CTAB. No crackles, wheezes, or rhonchi, no labored breathing. Cardiovascular: Heart RRR, no MRG, no edema. GI: Abdomen soft, NT/ND and with normoactive BS Skin/Integumen: Warm, dry, non-diaphoretic. MSK: CMS x4 intact. ADDITIONAL COMMENTS: I reviewed the patient's new clinical lab test results. Recent Labs Lab Test 05/03/24 1106 05/02/24 1323 01/12/24 1019 WBC 6.4 7.7 6.1 HGB 11.1* 13.2 12.3 MCV 80 80 81 PLT 237 272 187 Recent Labs Lab Test 05/03/24 1106 05/02/24 1323 01/12/24 1019 POTASSIUM 4.3 3.5 3.6 CHLORIDE 108* 105 107 CO2 25 21* 23 BUN 7.4* 11.7 13.3 ANIONGAP 7 12 12 Recent Labs Lab Test 05/03/24 1106 05/02/24 1501 05/02/24 1323 01/12/24 1019 08/21/23 1015 07/09/23 1036 ALBUMIN 3.6 -- 3.9 4.1 -- 4.1 BILITOTAL 0.3 -- 0.3 0.2 -- 0.2 ALT 9 -- 11 13 -- 10 AST 20 -- 20 14 -- 16 PROTEIN -- Negative -- -- Negative Negative LIPASE -- -- 27 -- -- -- I reviewed the patient's new imaging results. CONSULTATION ASSESSMENT AND PLAN: Catarina Almeida is a 73 year old female with a history of hypothyroidism, chronic kidney disease, and diabetes who presents for evaluation of generalized weakness. She does have a history of both liver and renal transplant about 7 years ago. Patient reports that for the last 2 weeks she has felt week since she had COVID, and 5 days ago it worsened severely coinciding with shortness of breath, a nonproductive cough, and dizziness. She adds that 2-3 days ago she also experienced an episode of chest pressure with no radiation which has since gone away. Patient endorses left upper quadrant abdominal pain in the ED. Abnormal CT findings, Dilated biliary and pancreatic ductal system Possible Kidney Abscess Elevated BNP --Continue IV antibiotics --Follow blood cultures --MRCP: Intrahepatic and extrahepatic biliary ductal dilatation. Redemonstrated diffuse pancreatic ductal dilatation. No obstructing stone. 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 --Possible EGD and EUS once kidney abscess is treated --Follow labs, LFTs, Lipase and CRP [facility] Office: [phone] (Dr. Vyas) Associated attestation - Holland Vyas MD - 05/22/2024 2:39 PM CDT History and physical exam was done independently.Patient's medical records imaging studies blood work and labs reviewed personally. On his physical exam patient is hemodynamically stable. Chest Normal breath sounds both sides. Cardiac exam unremarkable S1-S2 audible. Abdomen soft minimally distended good bowel sounds. Neurological exam nonfocal. Very pleasant 73-year-old female with complicated past medical history significant for hypothyroidism chronic kidney disease diabetes who was admitted with generalized weakness patient was noticed tohave dilated pancreatic and biliary system patient is status post kidney liver transplant patient liver function tests are normal patient's current findings are worrisome for possible kidney abscess patient is currently being evaluated in nephrology. Patient is hemodynamically stable doing very well. Agree with the above-mentioned plan from my associate continue on supportive care continue on closemonitoring with blood work further evaluation and nephrology and neurology once patient is stabilized and cleared from kidney abscess and kidney infection I will recommend further evaluation with EGDand endoscopic ultrasound to evaluate cause of her pancreaticobiliary ductal dilation patient is atrisk for possible neoplastic process lymphoproliferative disorder versus ischemic stricture in the setting of liver transplant patient's liver function tests have been stable and normal. There is no clinical signs of any infectious process or rejection process involving the liver. GI will continue to follow along closely Thank you very much for letting us participate in his care. Holland Vyas MD FACP SUBHA BASURTO * Holland Vyas MD - 05/02/2024 4:37 PM CDT 73 year old female with a history of hypothyroidism, chronic kidney disease, and diabetes who presents for evaluation of generalized weakness. She does have a history of both liver and renal transplant about 7 years ago. Patient reports that for the last 2 weeks she has felt week since she had COVID, and 5 days ago it worsened severely coinciding with shortness of breath, a nonproductive cough, and dizziness. She adds that 2-3 days ago she also experienced an episode of chest pressure with no radiation which has since gone away. Patient endorses left upper quadrant abdominal pain in the ED. Abnormal CT findings, Dilated biliary and pancreatic ductal system Possible Kidney Abscess Elevated BNP Agree with I/V antibiotics Blood C/S MRCP Possible EGD and EUS Repeat labs , CRP Drug levels Holland Vyas MD FACP documented in this encounter ED Notes * Monserrat Roger RN - 05/02/2024 3:16 PM CDT [facility] ED Nurse Handoff Report ED Chief complaint: Generalized Weakness ED Diagnosis: Final diagnoses: Hypomagnesemia Code Status: TBA by admitting physician Allergies: No Known Allergies Patient Story: Pt BIBA with c/o generalized weakness, malaise, SOB, dizziness. Denies pain. Focused Assessment: Pt intermittently tachypneic. 95-100% on room air. Aox4. Tearful at times, but otherwise calm and cooperative. Treatments and/or interventions provided: PIV; IVF; ondansetron; labs; CT; EKG Labs Ordered and Resulted from Time of ED Arrival to Time of ED Departure COMPREHENSIVE METABOLIC PANEL - Abnormal Result Value Sodium 138 Potassium 3.5 Carbon Dioxide (CO2) 21 (*) Anion Gap 12 Urea Nitrogen 11.7 Creatinine 1.37 (*) GFR Estimate 41 (*) Calcium 9.4 Chloride 105 Glucose 127 (*) Alkaline Phosphatase 58 AST 20 ALT 11 Protein Total 6.3 (*) Albumin 3.9 Bilirubin Total 0.3 TROPONIN T, HIGH SENSITIVITY - Abnormal Troponin T, High Sensitivity 45 (*) MAGNESIUM - Abnormal Magnesium 1.6 (*) NT PROBNP INPATIENT - Abnormal N terminal Pro BNP Inpatient 15,821 (*) TSH WITH FREE T4 REFLEX - Abnormal TSH 4.64 (*) ISTAT GASES LACTATE VENOUS POCT - Abnormal Lactic Acid POCT 2.1 (*) Bicarbonate Venous POCT 18 (*) O2 Sat, Venous POCT 50 (*) pCO2 Venous POCT 20 (*) pH Venous POCT 7.56 (*) pO2 Venous POCT 22 (*) Base Excess/Deficit (+/-) POCT -2.0 LIPASE - Normal Lipase 27 BILIRUBIN DIRECT - Normal Bilirubin Direct <0.20 INFLUENZA A/B, RSV, & SARS-COV2 PCR - Normal Influenza A PCR Negative Influenza B PCR Negative RSV PCR Negative SARS CoV2 PCR Negative T4 FREE - Normal Free T4 1.39 CBC WITH PLATELETS AND DIFFERENTIAL WBC Count 7.7 RBC Count 4.97 Hemoglobin 13.2 Hematocrit 39.7 MCV 80 MCH 26.6 MCHC 33.2 RDW 13.9 Platelet Count 272 % Neutrophils 74 % Lymphocytes 18 % Monocytes 7 % Eosinophils 1 % Basophils 0 % Immature Granulocytes 1 NRBCs per 100 WBC 0 Absolute Neutrophils 5.6 Absolute Lymphocytes 1.3 Absolute Monocytes 0.6 Absolute Eosinophils 0.1 Absolute Basophils 0.0 Absolute Immature Granulocytes 0.0 Absolute NRBCs 0.0 ROUTINE UA WITH MICROSCOPIC REFLEX TO CULTURE TROPONIN T, HIGH SENSITIVITY ISTAT CREATININE POCT Patient's response to treatments and/or interventions: Tolerated To be done/followed up on inpatient unit: Monitor Does this patient have any cognitive concerns?: N/S Activity level - Baseline/Home: Independent Activity Level - Current: Stand with Assist Patient's Preferred language: Croatian [employer] Needed?: No Isolation: Contact Infection: MRSA Patient tested for COVID 19 prior to admission: YES Bariatric?: No Vital Signs: Vitals: 05/02/24 1330 05/02/24 1345 05/02/24 1400 05/02/24 1415 BP: 128/73 120/75 112/72 121/83 Pulse: 101 103 98 98 Resp: (!) 50 11 10 17 Temp: TempSrc: SpO2: 100% 97% 96% 95% Weight: Cardiac Rhythm: Was the PSS-3 completed: Yes What interventions are required if any? Family Comments: N/A OBS brochure/video discussed/provided to patient/family: N/A Name of person given brochure if not patient: Relationship to patient: For the majority of the shift this patient's behavior was Green. Behavioral interventions performed were . ED NURSE PHONE NUMBER: *[id number] * Abdelrahman Fang RN - 05/02/2024 1:11 PM CDT Patient arrived via EMS from the clinic where she was seen for complaints of generalized weakness, malaise, shortness of breath and dizziness. EMS stated that the patient had a low end tidal CO2, wasdizzy and weak. Patient appears tachypneic but SpO2 is 100% on room air, BP 120/80, BG 184. Triage Assessment (Adult) Row Name 05/02/24 1311 Triage Assessment Airway WDL WDL Respiratory WDL Respiratory WDL X;rhythm/pattern Rhythm/Pattern, Respiratory shortness of breath Skin Circulation/Temperature WDL Skin Circulation/Temperature WDL WDL Cardiac WDL Cardiac WDL X;rhythm Pulse Rate & Regularity tachycardic Peripheral/Neurovascular WDL Peripheral Neurovascular WDL WDL Cognitive/Neuro/Behavioral WDL Cognitive/Neuro/Behavioral WDL WDL * Abdelrahman Fang RN - 05/02/2024 1:09 PM CDT Bed: ED08 Expected date: Expected time: Means of arrival: Comments: [facility] 594 weakness abd pain, ETA 1304 * Enrique Cuba MD - 05/02/2024 1:09 PM CDT Emergency Department Attending Supervision Note I evaluated this patient in conjunction with Abdelrahman Esquivel PA-C. I have participated in the care of the patient and personally performed aguilar elements of the history, exam, and medical decision making. HPI: Catarina Almeida is a 73 year old female with a history of hypothyroidism, chronic kidney disease, and diabetes who presents for evaluation of generalized weakness. She does have a history of both liver and renal transplant. Patient reports that for the last 2 weeks she has felt week since she had COVID, and 5 days ago it worsened severely coinciding with shortness of breath, a nonproductive cough,and dizziness. She adds that 2-3 days ago she also experienced an episode of chest pressure with noradiation which has since gone away. Patient endorses left upper quadrant abdominal pain in the ED. EXAM: BP 121/83 Pulse 98 Temp 98.6 ??F (37 ??C) (Oral) Resp 17 Wt 55.8 kg (123 lb) SpO2 95% BMI 21.79 kg/m?? General: Alert, appears well-developed and well-nourished. Cooperative. In mild distress HEENT: Head: Atraumatic Ears: External ears are normal Mouth/Throat: Oropharynx is without erythema or exudate and mucous membranes are moist. Eyes: Conjunctivae normal and EOM are normal. No scleral icterus. CV: Normal rate, regular rhythm, normal heart sounds and radial pulses are 2+ and symmetric. No murmur. Resp: Breath sounds are clear bilaterally, tachypneic. Mild laboring, no retractions or accessory muscle use. GI: Abdomen is soft, no distension, faint LUQ and LLQ tenderness. No rebound or guarding. No CVA tenderness bilaterally MS: Normal range of motion. No edema. Normal strength in all 4 extremities. Back atraumatic. No midline cervical, thoracic, or lumbar tenderness Skin: Warm and dry. No rash or lesions noted. Neuro: Alert. Normal strength. GCS: 15 Psych: Normal mood and affect. EKG: ECG results from 05/02/24 EKG 12-lead, tracing only Value Systolic Blood Pressure Diastolic Blood Pressure Ventricular Rate 100 Atrial Rate 100 SC Interval 146 QRS Duration 100 QT 482 QTc 621 P Horace 51 R AXIS 255 T Horace 221 Interpretation ECG Long QTc Normal sinus rhythm Possible left atrial enlargement Right superior axis deviation Pulmonary disease pattern Incomplete right bundle branch block Right ventricular hypertrophy Marked T wave abnormality, consider inferior ischemia Read by Enrique Cuba MD at 1340 ECG results from 05/02/24 EKG 12-lead, tracing only Value Systolic Blood Pressure Diastolic Blood Pressure Ventricular Rate 89 Atrial Rate 89 SC Interval 182 QRS Duration 100 QT 478 QTc 581 P Horace 64 R AXIS 261 T Horace 228 Interpretation ECG Long QTc Normal sinus rhythm Biatrial enlargement Right superior axis deviation Pulmonary disease pattern Incomplete right bundle branch block Right ventricular hypertrophy Septal infarct , age undetermined Marked T wave abnormality, consider inferior ischemia Marked T wave abnormality, consider anterolateral ischemia Prolonged QT When compared with ECG of 02-May-2024 13:14, (unconfirmed) No significant change Read by Enrique Cuba MD at 1548 Labs Ordered and Resulted from Time of ED Arrival to Time of ED Departure COMPREHENSIVE METABOLIC PANEL - Abnormal Result Value Sodium 138 Potassium 3.5 Carbon Dioxide (CO2) 21 (*) Anion Gap 12 Urea Nitrogen 11.7 Creatinine 1.37 (*) GFR Estimate 41 (*) Calcium 9.4 Chloride 105 Glucose 127 (*) Alkaline Phosphatase 58 AST 20 ALT 11 Protein Total 6.3 (*) Albumin 3.9 Bilirubin Total 0.3 TROPONIN T, HIGH SENSITIVITY - Abnormal Troponin T, High Sensitivity 45 (*) MAGNESIUM - Abnormal Magnesium 1.6 (*) NT PROBNP INPATIENT - Abnormal N terminal Pro BNP Inpatient 15,821 (*) TSH WITH FREE T4 REFLEX - Abnormal TSH 4.64 (*) ISTAT GASES LACTATE VENOUS POCT - Abnormal Lactic Acid POCT 2.1 (*) Bicarbonate Venous POCT 18 (*) O2 Sat, Venous POCT 50 (*) pCO2 Venous POCT 20 (*) pH Venous POCT 7.56 (*) pO2 Venous POCT 22 (*) Base Excess/Deficit (+/-) POCT -2.0 TROPONIN T, HIGH SENSITIVITY - Abnormal Troponin T, High Sensitivity 44 (*) LIPASE - Normal Lipase 27 ROUTINE UA WITH MICROSCOPIC REFLEX TO CULTURE - Normal Color Urine Light Yellow Appearance Urine Clear Glucose Urine Negative Bilirubin Urine Negative Ketones Urine Negative Specific [place] Urine 1.017 Blood Urine Negative pH Urine 7.0 Protein Albumin Urine Negative Urobilinogen Urine Normal Nitrite Urine Negative Leukocyte Esterase Urine Negative RBC Urine 0 WBC Urine <1 Squamous Epithelials Urine 1 BILIRUBIN DIRECT - Normal Bilirubin Direct <0.20 INFLUENZA A/B, RSV, & SARS-COV2 PCR - Normal Influenza A PCR Negative Influenza B PCR Negative RSV PCR Negative SARS CoV2 PCR Negative T4 FREE - Normal Free T4 1.39 CBC WITH PLATELETS AND DIFFERENTIAL WBC Count 7.7 RBC Count 4.97 Hemoglobin 13.2 Hematocrit 39.7 MCV 80 MCH 26.6 MCHC 33.2 RDW 13.9 Platelet Count 272 % Neutrophils 74 % Lymphocytes 18 % Monocytes 7 % Eosinophils 1 % Basophils 0 % Immature Granulocytes 1 NRBCs per 100 WBC 0 Absolute Neutrophils 5.6 Absolute Lymphocytes 1.3 Absolute Monocytes 0.6 Absolute Eosinophils 0.1 Absolute Basophils 0.0 Absolute Immature Granulocytes 0.0 Absolute NRBCs 0.0 LACTIC ACID WHOLE BLOOD ISTAT CREATININE POCT BLOOD CULTURE MR Abdomen MRCP w/o & w Contrast Final Result IMPRESSION: 1. Intrahepatic and extrahepatic biliary ductal dilatation. Redemonstrated diffuse pancreatic ductal dilatation. No obstructing stone. 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 Given abnormal liver function tests, ERCP should be considered in further evaluation. 2. Findings suspicious for a 2.2 cm abscess in the ventral aspect of the patient's right pelvic transplant kidney. US Renal Transplant with Doppler Final Result IMPRESSION: 1. Normal sonographic appearance of the [...] Borderline resistive indices in the renal allograft. CT Chest (PE) Abdomen Pelvis w Contrast Final Result Addendum (preliminary) 1 of 1 IMPRESSION #6: New small splenic infarct. LEYDA MCKENZIE MD Final IMPRESSION: 1. Postsurgical changes of liver transplant. [...] follow-up at 12 months. LEYDA MCKENZIE MD MEDICAL DECISION MAKING/ASSESSMENT AND PLAN: Patient is a 73-year-old female with a complex past medical history pertinent for prior liver and renal transplant who presents with shortness of breath, malaise, and generalized weakness progressivein nature over the last several days. Of note patient is recovering from the COVID illness which was initially diagnosed approximately 2 weeks ago. Patient is continue taking her normal medications as prescribed. A broad workup was initially pursued. Initial findings concerning for an elevated lactate at 2.1. Patient did have a blood culture obtained while further workup was ongoing. Initial white blood cell count was normal and so lower suspicion for systemic illness at this time. Patient was having ongoing shortness of breath and given high concerns and risk for potential pulmonary embolismwe did obtain CT imaging of the chest abdomen pelvis. Thankfully no evidence of pulmonary embolism.There was noted postsurgical changes of the liver transplant. There was worsening intrahepatic and extrapelvic biliary ductal dilatation. There is also increasing dilatation of the main pancreatic duct although lipase and LFTs appear normal. Findings could be secondary to an obstructive process of the ampulla and further evaluation recommended with MRCP. We have spoken with Dr. Vyas with gastroe nterology who agrees to consult on the patient if they were to be admitted here at [facility]. The right lower quadrant on the CT scan shows a renal transplant with a new area of patchy hyperenhancement with a complex hypoattenuating collection that could represent pyelonephritis with an associated renal abscess. Urinalysis shows no sign of infection and so lower suspicion for acute infectious process. Given the potential reports for possible infectious or obstructive etiologies we did obtain a single blood culture and also gave a dose of IV Zosyn in case there were an acute intra-abdominal infectious process present leading to the patient's shortness of breath and weakness symptoms here today. We spoke with the transplant service at the [facility] who recommended gastroenterology consultation and admission. Patient also had an elevated BNP which could be suspicious for potential acute heart failure exacerbation although patient has no evidence of pulmonary edema or lower e xtremity edema. Lower suspicion for acute systolic heart failure. I suppose there could be a potential for diastolic heart failure given the newly elevated BNP today. We have been cautious with providing any fluids to the patient while in the emergency department and thankfully her hemodynamics have remained stable while in the ED. We spoke with the hospitalist service at the [facility] who agreed to transfer of this patient with multiple prior transplants historically. Unfortunately no beds are readily available at the [facility] and we may be able to manage the majority of her symptoms here at [facility]. We have discussed the case with Dr. Muñiz of the hospitalist service whoagreed to admission. Additionally we have already spoken with Dr. Vyas with gastroenterology who agrees to consult on the patient should they stay here at [facility]. DIAGNOSIS: ICD-10-CM 1. Hypomagnesemia E83.42 2. Shortness of breath R06.02 3. Nonspecific abnormal electrocardiogram (ECG) (EKG) R94.31 4. Long QT interval R94.31 5. Elevated brain natriuretic peptide (BNP) level R79.89 6. Renal abscess of kidney transplant T86.19 N15.1 7. Dilated intrahepatic bile duct K83.8 8. Abnormality of pancreatic duct Q45.3 DISPOSITION: Admitted to Dr. Muñiz. Scribe Disclosure: I, Jyotsna Stewart, am serving as a scribe at 2:22 PM on 05/02/2024 to document services personally performed by Enrique Cuba MD based on my observations and the provider's statements to me. 05/02/2024 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 Patient states that she has felt weak for the last 2 weeks since a COVID-19 infection. She reports acutely worsening 5 days ago with shortness of breath, a nonproductive cough, dizziness, and generalized weakness. 2-3 days ago, she also had chest pain which has since resolved. She described chest pain as a substernal pressure, nonradiating. Patient also complains of left upper quadrant abdominal pain, she has difficulty describing it. She denies fever and chills, headache, dysuria and hematuria, diarrhea or constipation, nausea and vomiting. Independent Historian Daughter as detailed above. Review of External Notes 01/12/2024 reviewed nephrology note for aftercare of organ transplant Past Medical History Medical History and Problem List Past Medical History: Diagnosis Date Benign essential hypertension CHRONIC AIRWAY OBSTRUCTION Diabetes mellitus, type 2 (H) Diverticulitis of colon Genital herpes, unspecified HEPATITIS C LUMB/LUMBOSAC DISC DISEASE Pyelonephritis S/P kidney transplant S/P liver transplant (H) Unspecified hypothyroidism Medications No current outpatient medications on file. 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, s/p OLT 12/30/2016 SC TRANSPLANTATION OF KIDNEY ZZC APPENDECTOMY Physical Exam Patient Vitals for the past 24 hrs: BP Temp Temp src Pulse Resp SpO2 Height Weight 05/03/24 0726 124/67 98.1 ??F (36.7 ??C) Oral 83 18 96 % -- -- 05/03/24 0336 132/69 97.3 ??F (36.3 ??C) Oral 87 17 99 % -- -- 05/02/24 2100 -- -- -- -- -- -- 1.6 m (5' 3) -- 05/02/241999 111/76 98 ??F (36.7 ??C) Oral 80 18 96 % -- -- 05/02/24 1931 (!) 140/97 -- -- 103 24 96 % -- -- 05/02/24 1415 121/83 -- -- 98 17 95 % -- -- 05/02/24 1400 112/72 -- -- 98 10 96 % -- -- 05/02/24 1345 120/75 -- -- 103 11 97 % -- -- 05/02/24 1330 128/73 -- -- 101 (!) 50 100 % -- -- 05/02/24 1319 138/77 98.6 ??F (37 ??C) Oral 101 20 100 % -- 55.8 kg (123 lb) 05/02/24 1315 138/77 -- -- 102 -- 100 % -- -- Physical Exam Physical Exam: GENERAL: Warm, dry, alert, tachypneic, lying back on gurney appearing uncomfortable HEENT: PERRL, no scleral icterus, clear conjunctiva, oropharynx clear NECK: No JVD, supple without lymphadenopathy. No stiffness or restricted range of motion HEART: Regular rate and rhythm, no murmur or rubs LUNGS: CTAB, moving air well. No crackles or wheezes are heard. ABD: Mild tenderness to palpation LUQ and LLQ without rebound, soft, nondistended, no guarding, with good bowel sounds heard. BACK: No CVAT, no obvious deformities EXTREMITIES: Moves all extremities without difficulty, no calf tenderness or peripheral edema. SKIN: Warm and dry without rash or lesions. NEUROLOGICAL: No focal deficits. PSYCH: Appropriate mood and affect. Diagnostics Lab Results Labs Ordered and Resulted from Time of ED Arrival to Time of ED Departure COMPREHENSIVE METABOLIC PANEL - Abnormal Result Value Sodium 138 Potassium 3.5 Carbon Dioxide (CO2) 21 (*) Anion Gap 12 Urea Nitrogen 11.7 Creatinine 1.37 (*) GFR Estimate 41 (*) Calcium 9.4 Chloride 105 Glucose 127 (*) Alkaline Phosphatase 58 AST 20 ALT 11 Protein Total 6.3 (*) Albumin 3.9 Bilirubin Total 0.3 TROPONIN T, HIGH SENSITIVITY - Abnormal Troponin T, High Sensitivity 45 (*) MAGNESIUM - Abnormal Magnesium 1.6 (*) NT PROBNP INPATIENT - Abnormal N terminal Pro BNP Inpatient 15,821 (*) TSH WITH FREE T4 REFLEX - Abnormal TSH 4.64 (*) ISTAT GASES LACTATE VENOUS POCT - Abnormal Lactic Acid POCT 2.1 (*) Bicarbonate Venous POCT 18 (*) O2 Sat, Venous POCT 50 (*) pCO2 Venous POCT 20 (*) pH Venous POCT 7.56 (*) pO2 Venous POCT 22 (*) Base Excess/Deficit (+/-) POCT -2.0 TROPONIN T, HIGH SENSITIVITY - Abnormal Troponin T, High Sensitivity 44 (*) LACTIC ACID WHOLE BLOOD - Abnormal Lactic Acid 0.6 (*) LIPASE - Normal Lipase 27 ROUTINE UA WITH MICROSCOPIC REFLEX TO CULTURE - Normal Color Urine Light Yellow Appearance Urine Clear Glucose Urine Negative Bilirubin Urine Negative Ketones Urine Negative Specific [place] Urine 1.017 Blood Urine Negative pH Urine 7.0 Protein Albumin Urine Negative Urobilinogen Urine Normal Nitrite Urine Negative Leukocyte Esterase Urine Negative RBC Urine 0 WBC Urine <1 Squamous Epithelials Urine 1 BILIRUBIN DIRECT - Normal Bilirubin Direct <0.20 INFLUENZA A/B, RSV, & SARS-COV2 PCR - Normal Influenza A PCR Negative Influenza B PCR Negative RSV PCR Negative SARS CoV2 PCR Negative T4 FREE - Normal Free T4 1.39 CBC WITH PLATELETS AND DIFFERENTIAL WBC Count 7.7 RBC Count 4.97 Hemoglobin 13.2 Hematocrit 39.7 MCV 80 MCH 26.6 MCHC 33.2 RDW 13.9 Platelet Count 272 % Neutrophils 74 % Lymphocytes 18 % Monocytes 7 % Eosinophils 1 % Basophils 0 % Immature Granulocytes 1 NRBCs per 100 WBC 0 Absolute Neutrophils 5.6 Absolute Lymphocytes 1.3 Absolute Monocytes 0.6 Absolute Eosinophils 0.1 Absolute Basophils 0.0 Absolute Immature Granulocytes 0.0 Absolute NRBCs 0.0 Imaging MR Abdomen MRCP w/o & w Contrast Final Result IMPRESSION: 1. Intrahepatic and extrahepatic biliary ductal dilatation. Redemonstrated diffuse pancreatic ductal dilatation. No obstructing stone. 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 Given abnormal liver function tests, ERCP should be considered in further evaluation. 2. Findings suspicious for a 2.2 cm abscess in the ventral aspect of the patient's right pelvic transplant kidney. US Renal Transplant with Doppler Final Result IMPRESSION: 1. Normal sonographic appearance of the [...] Borderline resistive indices in the renal allograft. CT Chest (PE) Abdomen Pelvis w Contrast Final Result Addendum (preliminary) 1 of IMPRESSION #6: New small splenic infarct. LEYDA MCKENZIE MD Final IMPRESSION: 1. Postsurgical changes of liver transplant. [...] follow-up at 12 months. LEYDA MCKENZIE MD EKG ECG results from 05/02/24 EKG 12-lead, tracing only Value Systolic Blood Pressure Diastolic Blood Pressure Ventricular Rate 89 Atrial Rate 89 SC Interval 182 QRS Duration 100 QT 478 QTc 581 P Horace 64 R AXIS 261 T Horace 228 Interpretation ECG Critical Test Result: Long QTc Sinus rhythm Biatrial enlargement Right superior axis deviation Pulmonary disease pattern Incomplete right bundle branch block Right ventricular hypertrophy Septal infarct , age undetermined Marked T wave abnormality, consider inferior ischemia Marked T wave abnormality, consider anterolateral ischemia Prolonged QT Abnormal ECG When compared with ECG of 02-May-2024 13:14, (unconfirmed) Septal infarct is now Present Confirmed by GENERATED REPORT, COMPUTER ([id number]), editor & co founder Melissa Lindsey ([id number]) on 05/03/2024 5:07:24 AM EKG 12-lead, tracing only Value Systolic Blood Pressure Diastolic Blood Pressure Ventricular Rate 81 Atrial Rate 81 SC Interval 174 QRS Duration 102 QT 462 QTc 536 P Horace 73 R AXIS 260 T Horace 246 Interpretation ECG Sinus rhythm Right atrial enlargement Right superior axis deviation Pulmonary disease pattern Marked T wave abnormality, consider inferior ischemia Marked T wave abnormality, consider anterolateral ischemia Prolonged QT Abnormal ECG When compared with ECG of 02-May-2024 15:26, Incomplete right bundle branch block is no longer Present Criteria for Septal infarct are no longer Present Independent Interpretation None ED Course Medications Administered Medications insulin glargine (LANTUS PEN) injection 10 Units (has no administration in time range) levothyroxine (SYNTHROID/LEVOTHROID) tablet 75 mcg (has no administration in time range) mycophenolate (GENERIC EQUIVALENT) capsule 500 mg (500 mg Oral $Given 05/02/24 225) predniSONE (DELTASONE) tablet 5 mg (has no administration in time range) tacrolimus (GENERIC EQUIVALENT) capsule 2 mg (has no administration in time range) And tacrolimus (GENERIC EQUIVALENT) capsule 1 mg (1 mg Oral $Given 05/02/242249) traZODone (DESYREL) tablet 50-100 mg (0 mg Oral Hold 05/02/242125) lidocaine 1 % 0.1-1 mL (has no administration in time range) lidocaine (LMX4) cream (has no administration in time range) sodium chloride (PF) 0.9% PF flush 3 mL (3 mLs Intracatheter Not Given 05/03/24 0438) sodium chloride (PF) 0.9% PF flush 3 mL (has no administration in time range) senna-docusate (SENOKOT-S/PERICOLACE) 8.6-50 MG per tablet 1 tablet (has no administration in time range) Or senna-docusate (SENOKOT-S/PERICOLACE) 8.6-50 MG per tablet 2 tablet (has no administration in time range) calcium carbonate (TUMS) chewable tablet 1,000 mg (has no administration in time range) glucose gel 15-30 g (has no administration in time range) Or dextrose 50 % injection 25-50 mL (has no administration in time range) Or glucagon injection 1 mg (has no administration in time range) lactated ringers infusion ( Intravenous $New Bag 05/02/242140) acetaminophen (TYLENOL) tablet 650 mg (has no administration in time range) Or acetaminophen (TYLENOL) Suppository 650 mg (has no administration in time range) prochlorperazine (COMPAZINE) injection 5 mg (has no administration in time range) Or prochlorperazine (COMPAZINE) tablet 5 mg (has no administration in time range) Or prochlorperazine (COMPAZINE) suppository 12.5 mg (has no administration in time range) ondansetron (ZOFRAN ODT) ODT tab 4 mg (has no administration in time range) Or ondansetron (ZOFRAN) injection 4 mg (has no administration in time range) insulin aspart (NovoLOG) injection (RAPID ACTING) ( Subcutaneous Not Given 05/03/24 0837) insulin aspart (NovoLOG) injection (RAPID ACTING) ( Subcutaneous Not Given 05/02/24 2214) insulin aspart (NovoLOG) injection (RAPID ACTING) (has no administration in time range) piperacillin-tazobactam (ZOSYN) 2.25 g vial to attach to NS 100 ml bag (2.25 g Intravenous $New Bag05/03/24 0650) magnesium sulfate 2 g in 50 mL sterile water intermittent infusion (0 g Intravenous Stopped 434) sodium chloride 0.9% BOLUS 1,000 mL (0 mLs Intravenous Stopped 05/02/24 1603) iopamidol (ISOVUE-370) solution 62 mL (62 mLs Intravenous $Given 05/02/24 1439) sodium chloride 0.9 % bag 500mL for CT scan flush use (83 mLs Intravenous $Given 05/02/24 1439) ondansetron (ZOFRAN) injection 4 mg (4 mg Intravenous $Given 05/02/24 1503) piperacillin-tazobactam (ZOSYN) 3.375 g vial to attach to NS 100 mL bag (0 g Intravenous Stopped 05/02/24 1742) gadobutrol (GADAVIST) injection 10 mL (10 mLs Intravenous $Given 05/03/24 0327) sodium chloride (PF) 0.9% PF flush 100 mL (100 mLs Intravenous $Given 05/03/24 0327) Procedures Procedures Discussion of Management Admitting Hospitalist, Dr. Desai Gastroenterology, Dr. Vyas [facility] transplant services, Dr. Velez [facility] hospital medicine, Dr. Cain Staffed with Dr. Cuba ED Course ED Course as of 05/03/24 0853 Mon May 02, 2024 1325 I evaluated and examined the patient 1550 I reevaluate the patient, she reports decreased shortness of breath however dizziness remains,no other change clinical condition. 1611 I spoke with [facility] transplant services, Dr. Velez, who recommends IV antibiotics, ultrasound of right kidney, and consult with gastroenterology to assess their willingness to see patient while at [facility]. Recommend if services are not available at [facility] then transferto [facility]. 1631 I spoke with gastroenterology, Dr. Vyas, he is more than happy to see the patient admitted at [facility]. [address] Cain, hospitalist at [facility] who agrees to accept the patient to the [place]. No beds are available this evening however they expect beds to open up tomorrow for admission. 1643 I spoke with hospital medicine, Dr. Desai, who agrees to admit the patient for dyspnea, elevated BNP, and possible renal abscess. Optional/Additional Documentation None Medical Decision Making / Diagnosis [facility] Diagnoses: The Lactic acid level is elevated due to respiratory alkalosis, at this time there is no sign of severe sepsis or septic shock. MIPS CT for PE was ordered because the patient is high risk for pulmonary embolism. AYLIN Almeida is a 73 year old female with history of hypothyroidism, CKD, kidney transplant taking tacrolimus, liver transplant secondary to hepatitis C, and DM2 who presents with complaint of generalized weakness and dizziness. Differential includes but is not limited to pulmonary embolism, respiratory infection, peritonitis, ACS, heart failure, electrolyte derangement, transplant complication, and pneumothorax among many others. At presentation, patient was tachypneic with respiratory rate 30 otherwise she was not hypoxic, not febrile, and mildly tachycardic with heart rate 101. Physical exam was significant for mild tenderness to palpation of the left upper quadrant and lower left quadrant of her abdomen without rebound or guarding. Patient's ECG was significant for prolonged QTc as well as inverted and peaked T waves throughout. Her magnesium initially was 1.6, no other electrolyte derangements such as hypokalemia. She was given 2 g of magnesium sulfate IV. Her i-STAT VBG with lactate did have an elevated lactic acid 2.1 however patient was tachypneic, her pCO2 was 20, and her pH was 7.56. Her elevated lactic acid is most likely secondary to respiratory alkalosis related to tachypnea. Her UA was not consistent with acute cystitis. Viral swabs are negative for influenza, RSV, COVID-19. Creatinine was elevated and GFR decreased however these are consistent with previous findings given history of CKD with renal transplant. There was no leukocytosis nor anemia. Her troponin was elevated at 45, delta troponin was flat at44. Her BNP was elevated at 15,821, patient has no known history of congestive heart failure. I do not have a good explanation for increased BNP today however I recommend further workup with a echocardiogram to assess for myocarditis. I was concerned for pulmonary embolism given patient's tachypnea, shortness of breath, and previous history of organ transplants therefore a CT for PE was ordered. While there was no pulmonary embolism seen on CT, there were findings consistent with a possible renal abscess on the transplanted kidney. There are also findings concerning for intrahepatic and extrahepatic biliary and pancreatic duct obstruction. Given concern for acute pathologies with his transplanted organs, I spoke with transplant services at [facility], conversation is noted above. I contacted gastroenterology, Dr. Vyas who states he will follow the patient should she stay foradmission at [facility]. I spoke with hospitalist Dr. Cain at [facility] who accepts her for transfer to [facility] however there are no beds available at this time. When I spoke with the transfer and line up worker, they believe a bed will be available tomorrow for patient transfer. I spoke with [facility] hospitalist, Dr. Barker, who accepts the patient for admission given this patient will most likely be transferred to [facility] tomorrow. I spoke with the patient regarding all these findings and discussions, she agrees to the admission tonight with possible transfer tomorrow. She does remain quite dyspneic and dizzy when she stands otherwise vitally stable. The patient was subsequently admitted to the hospital in stable condition. Disposition The patient was discharged. Diagnosis ICD-10-CM 1. Hypomagnesemia E83.42 2. Shortness of breath R06.02 3. Nonspecific abnormal electrocardiogram (ECG) (EKG) R94.31 4. Long QT interval R94.31 5. Elevated brain natriuretic peptide (BNP) level R79.89 6. Renal abscess of kidney transplant T86.19 N15.1 7. Dilated intrahepatic bile duct K83.8 8. Abnormality of pancreatic duct Q45.3 Discharge Medications Current Discharge Medication List ADRIANA Reeves John, PA-C 05/03/24 0853 documented in this encounter Miscellaneous Notes * Plan of Care - Jayson Longoria RN - 05/06/2024 3:02 PM CDT Goal Outcome Evaluation: Plan of Care Reviewed With: patient Overall Patient Progress: no changeOverall Patient Progress: no change [id number] Orientation: A&O x4 Aggression Stop Light: Green Activity: Independent Diet/BS Checks: Mod carb, BS checks ACHS Tele: n/a IV Access/Drains: R PIV SL, with intermittent ABX Pain Management: C/O L flank pain, PRN Tylenol given & scheduled lidocaine patch x1 LL back Abnormal VS/Results: VSS on RA Bowel/Bladder: Continent of B/B. Skin/Wounds: scattered bruising, L lower forearm swelling from IV infiltration Consults: Nephrology, GI D/C Disposition: Plan for discharge home at 1630 on oral abx Notes: IV painful to flush, run ABX over 1 hour for tenderness - Pt refused heparin shot - Discharge instructions completed and given to pt, just waiting on pharmacy meds for discharge. * Provider Notification - Jayson Longoria RN - 05/06/2024 8:24 AM CDT MD Notification Notified Person: MD Notified Person Name: Tye Ramsay Notification Date/Time: 82305/06/24 Notification Interaction: LocalSortpaPodaddies Purpose of Notification: Loss of IV access, will re-establish, pt tearful and frustrated, advises has had enough of hospital stay. may benefit from spiritual health consult Orders Received: Comments: * Plan of Care - Rodney Ayala RN - 05/06/2024 6:06 AM CDT 05/05/24 -- [phone] Orientation: A&O x4 Aggression Stop Light: Green Activity: Independent Diet/BS Checks: Mod carb, BS checks ACHS Tele: n/a IV Access/Drains: L PIV SL, with intermittent ABX Pain Management: C/O L flank pain, PRN Oxycodone given x1 Abnormal VS/Results: VSS on RA Bowel/Bladder: Continent of B/B. Pt reported several loose BM's today, stated that this is normal for her from [id number]. Skin/Wounds: scattered bruising, L lower forearm swelling from IV infiltration Consults: Nephrology, GI D/C Disposition: Pending transfer to [facility] * Plan of Care - Shadia Pool RN - 05/05/2024 8:13 PM CDT Goal Outcome Evaluation: Shift Note: [phone] Orientation: A/Ox4 Aggression Stop Light: Green Activity: Independent Diet/BS Checks: Mod carb, BS checks ACHS Tele: N/a IV Access/Drains: R PIV- SL Pain Management: C/o L flank pain, PRN Oxycodone given x1 Abnormal VS/Results: VSS, on RA Bowel/Bladder: Continent of B/B, pt reported several BM's this shift Skin/Wounds: WDL Consults: Nephrology, GI following D/C Disposition: Pending transfer to [facility] Other Info: T-pump ordered and started for this evening for pt's on going L flank pain. Pt reportedseveral loose BM's today, stated that this is normal for her from [id number]. IVF discontinued today. * Plan of Care - Ludwin Barcenas RN - 05/05/2024 7:37 AM CDT Orientation: A&Ox4 Aggression Stop Light: Green Activity: Independent Diet/BS Checks: Mod carb diet, ACHS BG checks + CC Tele: N/a IV Access/Drains: PIV infusing NS @ 50 ml/hr with int abx Pain Management: LUQ pain managed by previous flexeril and oxycodone, no PRNs given this shift Abnormal VS/Results: VSS on RA Bowel/Bladder: Continent B/B Skin/Wounds: WDL Consults: GI D/C Disposition: Plan for transfer to [facility] when bed available. Other Info: -Pt refused heparin overnight, education provided * Plan of Care - Shadia Pool RN - 05/04/2024 8:17 PM CDT Goal Outcome Evaluation: Shift Note: [phone] Orientation: A/Ox4 Aggression Stop Light: Green Activity: Independent Diet/BS Checks: Mod carb, BS checks ACHS Tele: N/a IV Access/Drains: R PIV infusing NS 50 mL/hr Pain Management: C/o L flank pain, PRN Flexeril and Oxycodone given with good relief Abnormal VS/Results: VSS, on RA Bowel/Bladder: Continent of B/B, pt reported 1 BM this shift Skin/Wounds: WDL Consults: Nephrology, GI following D/C Disposition: Pending transfer to [facility] Other Info: Pt refused scheduled heparin and PCD pumps that was ordered today. Pt is up ambulating independently in the room. * Plan of Care - Ludwin Barcenas RN - 05/04/2024 6:57 AM CDT Orientation: A&Ox4 Aggression Stop Light: Green Activity: Independent Diet/BS Checks: Mod carb diet, ACHS BG checks + CC Tele: N/a IV Access/Drains: PIV infusing NS @ 100 ml/hr with int abx Pain Management: Having LUQ pain - PRN dilaudid covered pain throughout night. Requested for PRN oxycodone and was not needed overnight. Abnormal VS/Results: VSS on RA Bowel/Bladder: Continent B/B Skin/Wounds: WDL Consults: GI D/C Disposition: Plan for transfer to [facility] when bed available. Other Info: - UC collected * Plan of Care - Daphne Niño RN - 05/03/2024 7:28 PM CDT Goal Outcome Evaluation: Orientation: AO x4 Aggression Stop Light: Green Activity: Ind, steady Diet/BS Checks: Mod carb diet, BG checks ACHS, no coverage needed Tele: n/a IV Access/Drains: New R PIV inf NS @ 100ml/hr w/ int abx Pain Management: LUQ pain managed w/ dilaudid x2 Abnormal VS/Results: VSS on RA Bowel/Bladder: cont b/b, urine sample to be collected still Skin/Wounds: Intact Consults: Neph, GI D/C Disposition: Pending transfer to [facility] Other Info: No acute events today. * Plan of Care - Ludwin Barcenas RN - 05/03/2024 7:02 AM CDT Orientation: A&Ox4 Aggression Stop Light: Green Activity: SBA/Ind Diet/BS Checks: Mod carb diet, ACHS BG checks Tele: N/a IV Access/Drains: PIV infusing LR @ 75 ml/hr to be stopped at 0730 today with int zosyn Pain Management: Denies Abnormal VS/Results: VSS on RA Bowel/Bladder: Continent B/B Skin/Wounds: WDL Consults: GI D/C Disposition: Plan for possible transfer to [facility] when bed available today Other Info: -MRCP completed overnight, see results -Possible MRI of renal transplant today * Plan of Care - Kylee Calixto RN - 05/02/2024 11:53 PM CDT Summary: hx of hypothyroidism, chronic kidney disease, and diabetes. Presents to ED from [facility] for generalized, increased weakness, SOB, and dizziness xs 2 wks. Liver and renal transplant about 7 years ago. 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 Pt refused skin check upon admission. Consults: GI, Hospitalist D/C Disposition: Transfer to [place] when bed is available Other Info: MRCP at 0200 * Pharmacy - Justa Jade RPH - 05/02/2024 9:27 PM CDT MD Notification Notified Person: MD Notified Person Name: Jacques Muñiz Notification Date/Time: 05/02/242129 Notification Interaction: via Syndiant Purpose of Notification: Hold Trazodone tonight due to Qtc of 581? Orders Received: Yes, hold Trazodone tonight. Comments: * Pharmacy-Admission Medication History - Lynsey Jimenez RPH - 05/02/2024 4:53 PM CDT Pharmacist Admission Medication History Admission medication history is complete. The information provided in this note is only as accurateas the sources available at the time of the update. Information Source(s): Patient and CareEverywhere/SureScripts via in-person Pertinent Information: -patient stopped taking atorvastatin on her own -does not take carvedilol regularly - doesn't think she needs to -ran out of alendronate but should be taking per pt report Changes made to [employer] medication list: Added: Flonase PRN, Lantus Deleted: atorvastatin, Tresiba Changed: trazodone Allergies reviewed with patient and updates made in EHR: yes Medication History Completed By: Lynsey Jimenez RPH 05/02/2024 4:53 PM [employer] Med List Medication Sig Note Last Dose acyclovir (ZOVIRAX) 400 MG tablet ONE TABLET 3 TIMES DAILY x 5 days (Patient taking differently: Take 400 mg by mouth 3 times daily as needed ONE TABLET 3 TIMES DAILY x 5 days) at prn ALENDRONATE SODIUM 70 MG OR TABS 1 TABLET WEEKLY ON AN EMPTY STOMACH (Patient taking differently: Take 70 mg by mouth every 7 days) More than a month at ran out amLODIPine (NORVASC) 5 MG tablet Take 5 mg by mouth every evening 05/01/2024 carvedilol (COREG) 12.5 MG tablet Take 12.5 mg by mouth One to two times daily 05/02/2024: 05/02 pt notes not taking regularly because she doesn't think she needs it 05/01/2024 fluticasone (FLONASE) 50 MCG/ACT nasal spray [place] 1 spray into both nostrils daily as needed for rhinitis or allergies at prn insulin aspart (NOVOLOG PEN) 100 UNIT/ML pen Inject 8 Units subcutaneously 3 times daily (with meals) plus sliding scale 05/02/2024 at am insulin glargine (LANTUS PEN) 100 UNIT/ML pen Inject 20 Units subcutaneously every morning 05/02/2024 at am levothyroxine (SYNTHROID/LEVOTHROID) 75 MCG tablet Take 75 mcg by mouth daily 05/02/2024 at am mycophenolate (GENERIC EQUIVALENT) 250 MG capsule Take 2 capsules (500 mg) by mouth 2 times daily 05/02/2024 at am predniSONE (DELTASONE) 5 MG tablet Take 1 tablet (5 mg) by mouth daily 05/02/2024 Semaglutide, 2 MG/DOSE, (OZEMPIC, 2 MG/DOSE,) 8 MG/3ML pen Inject 2 mg Subcutaneous every 7 days 04/26/2024 tacrolimus (GENERIC EQUIVALENT) 1 MG capsule Take 2 capsules (2 mg) by mouth every morning AND 1 capsule (1 mg) every evening. 05/02/2024 at am traZODone (DESYREL) 50 MG tablet Take 50-100 mg by mouth at bedtime 05/01/2024 documented in this encounter Plan of Treatment Upcoming Encounters Date Type Department Care Team (Late st Contact Info) Description 07/18/2024 PRE VISIT [facility] [address] [place] [phone] Eriebrto Romano MD [address] [phone] Previsit 07/18/2024 11:00 AM CDT Office Visit [facility] [address] [place] [phone] Kylee Fu MD [address] [place], [place] [address] [address] [place], [place] [phone] Eriberto Romano MD [address] [phone] 08/19/2024 1:05 PM [employer] Office Visit [facility] Transplant Clinic [address] [place] [phone] Georgette Velez MD [address] [place], [place] [phone] documented as of this encounter Procedures Procedure Name Priority Date/Time Associated Diagnosis Comments GLUCOSE BY METER Routine 05/06/2024 1:38 PM CDT GLUCOSE BY METER Routine 05/06/2024 12:0 1 PM CDT CBC WITH PLATELETS AND DIFFERENTIAL Routine 05/06/2024 8:36 AM CDT CBC WITH PLATELETS & DIFFERENTIAL Routine 05/06/2024 8:36 AM CDT HEPATIC [...] AM CDT GLUCOSE BY METER Routine 05/04/2024 10:4 3 PM CDT GLUCOSE BY METER Routine 05/04/2024 6:18 PM CDT EKG 12-LEAD, TRACING ONLY Routine 05/04/2024 4:10 PM CDT GLUCOSE BY METER Routine 05/04/2024 1:10 PM CDT GLUCOSE BY METER Routine 05/04/2024 9:22 AM CDT TACROLIMUS BY TANDEM MASS SPECTROMETRY Routine 05/04/2024 7:50 AM CDT LIPASE Routine 05/04/2024 7:50 AM CDT CRP INFLAMMATION Routine 05/04/2024 7:50 AM CDT COMPREHENSIVE METABOLIC PANEL Routine 05/04/2024 7:50 AM CDT GLUCOSE BY METER Routine 05/04/2024 2:04 AM CDT GLUCOSE BY METER Routine 05/03/2024 10:0 1 PM CDT URINE CULTURE Routine 05/03/2024 7:39 PM CDT GLUCOSE BY METER Routine 05/03/2024 5:23 PM CDT GLUCOSE BY METER Routine 05/03/2024 12:1 3 PM CDT MAGNESIUM Routine 05/03/2024 11:06 AM CDT COMPREHENSIVE METABOLIC PANEL Routine 05/03/2024 11:06 AM CDT CBC WITH PLATELETS Routine 05/03/2024 11 :06 AM CDT GLUCOSE BY METER Routine 05/03/2024 8:25 AM CDT EKG 12-LEAD, TRACING ONLY Routine 05/03/2024 8:23 AM CDT MR ABDOMEN MRCP W/O & W CONTRAST STAT 05/03/2024 3:17 AM CDT GLUCOSE BY METER Routine 05/02/2024 9:49 PM CDT LACTIC ACID WHOLE BLOOD STAT 05/02/2024 5:11 PM CDT BLOOD CULTURE STAT 05/02/2024 5:11 PM CDT US RENAL [...] VENOUS POCT STAT 05/02/2024 1:26 PM CDT EXTRA TUBE STAT 05/02/2024 1:23 PM CDT EXTRA RED TOP TUBE STAT 05/02/2024 1: 23 PM CDT EXTRA BLUE TOP TUBE STAT 05/02/2024 1 :23 PM CDT CBC WITH PLATELETS AND DIFFERENTIAL STAT 05/02/2024 1:23 PM CDT TROPONIN T, HIGH SENSITIVITY STAT 05/02/2024 1:23 PM CDT CBC WITH PLATELETS & DIFFERENTIAL STAT 05/02/2024 1:23 PM CDT TSH WITH FREE T4 REFLEX STAT 05/02/2024 1:23 PM CDT T4 FREE STAT 05/02/2024 1:23 PM CDT NT PROBNP INPATIENT STAT 05/02/2024 1 :23 PM CDT MAGNESIUM STAT 05/02/2024 1:23 PM CDT LIPASE STAT 05/02/2024 1:23 PM CDT HEMOGLOBIN A1C Add-On 05/02/2024 1:23 PM CDT COMPREHENSIVE METABOLIC PANEL STAT 05/02/2024 1:23 PM CDT BILIRUBIN DIRECT STAT 05/02/2024 1:23 PM CDT documented in this encounter Results * (ABNORMAL) Glucose by meter (05/06/2024 1:38 PM CDT) GLUCOSE BY METER POCT 131(H) 70 - 99 mg/dL 05/06/2024 1:48 PM CDT LABORATORY POC Blood, Capillary BLOOD SPECIMEN / Unknown 05/06/2024 1:38 PM CDT 05/06/2024 1:48 PM CDT Abdelrahman BUSTOS POCT Performing Organization Address City/[facility]/ZIP Co de Phone Number LABORATORY [facility] [address], [address], [place] [phone] * (ABNORMAL) Glucose by meter (05/06/2024 12:01 PM CDT) GLUCOSE BY METER POCT 126(H) 70 - 99 mg/dL 05/06/2024 12:08 PM CDT LABORATORY POC Blood, Capillary BLOOD SPECIMEN / Unknown 05/06/2024 12:01 PM CDT 05/06/2024 12:08 PM CDT Abdelrahman NAJERA - JULI POCT LABORATORY POC [facility] [address], [address] [place] [address], [facility] * (ABNORMAL) CBC with platelets and differential (05/06/2024 8:36 AM CDT) WBC Count 8.7 4.0 - 11.0 10e3/uL [...] MD LAB - BLOOD ORDER JOSE D [facility] [address], [address] [place] [address], [facility] [phone] * (ABNORMAL) Hepatic function panel (05/06/2024 8:36 AM CDT) [facility] Protein Total 5.6(L) 6.4 - 8.3 g/dL 05/06/2024 9:58 AM CDT LABORATORY Albumin 3.6 3.5 - 5.2 g/dL 05/06/2024 9:58 AM CDT LABORATORY Bilirubin Total 0.2 <=1.2 mg/dL 05/06/2024 9:58 AM CDT LABORATORY Alkaline Phosphatase 39(L) 40 - 150 U/L 05/06/2024 9:58 AM CDT LABORATORY AST 16 0 - 45 U/L 05/06/2024 9:58 AM CDT LABORATORY ALT 7 0 - 50 U/L 05/06/2024 9:58 AM CDT LABORATORY Bilirubin Direct <0.20 0.00 - 0.30 mg/dL 05/06/2024 9:58 AM CDT LABORATORY Blood STRUCTURE OF LEFT UPPER LIMB / Unknown Venipuncture / Unknown 05/06/2024 8:36 AM CDT 05/06/2024 9:22 AM CDT Tye Calle MD LAB - BLOOD ORDER JOSE D [facility] [address], [address] [place] [address], [facility] [phone] * (ABNORMAL) Basic metabolic panel (05/06/2024 8:36 AM CDT) [facility] Sodium 140 135 - 145 mmol/L 05/06/2024 9:58 AM CDT LABORATORY Potassium 3.6 3.4 - 5.3 mmol/L 05/06/2024 9:58 AM CDT LABORATORY Chloride 109(H) 98 - 107 mmol/L 05/06/2024 9:58 AM CDT LABORATORY Carbon Dioxide (CO2) 22 22 - 29 mmol/L 05/06/2024 9:58 AM CDT LABORATORY Anion Gap 9 7 - 15 mmol/L 05/06/2024 9:58 AM CDT LABORATORY Urea Nitrogen 9.8 8.0 - 23.0 mg/dL 05/06/2024 9:58 AM CDT LABORATORY Creatinine 1.30(H) 0.51 - 0.95 mg/dL 05/06/2024 9:58 AM CDT LABORATORY GFR Estimate 44(L) >60 mL/min/1.7 3m2 05/06/2024 9:58 AM CDT LABORATORY Comment:eGFR calculated usin 2020 CKD-EPI equation. Calcium 8.7(L) 8.8 - 10.4 mg/dL 05/06/2024 9:58 AM T LABORATORY Comment:Reference intervals for this test were updated on 04/19/2024 to reflect our healthy population more accurately. There may be differences in the flagging of prior results with similar values performed with this method. Those prior results can be interpreted in the context of the updated reference intervals. Glucose 97 70 - 99 mg/dL 05/06/2024 9:58 AM T LABORATORY Blood STRUCTURE OF LEFT UPPER LIMB / Unknown Venipuncture / Unknown 05/06/2024 8:36 AM CDT 05/06/2024 9:22 AM CDT Tye Calle MD LAB - BLOOD ORDER JOSE D LABORATORY [facility] [address], [address] [place] [address], [facility] [phone] * Glucose by meter (05/06/2024 8:01 AM CDT) GLUCOSE BY METER POCT 93 70 - 99 mg/dL 05/06/2024 8:08 AM CDT LABORATORY POC Blood, Capillary BLOOD SPECIMEN / Unknown 05/06/2024 8:01 AM CDT 05/06/2024 8:08 AM CDT Abdelrahman NAJERA - BEMANOJ POCT LABORATORY POC [facility] [address], [address] [place] [address], [facility] * (ABNORMAL) Glucose by meter (05/06/2024 1:55 AM CDT) GLUCOSE BY METER POCT 107(H) 70 - 99 mg/dL 05/06/2024 2:03 AM CDT LABORATORY POC Blood, Capillary BLOOD SPECIMEN / Unknown 05/06/2024 1:55 AM CDT 05/06/2024 2:03 AM CDT Abdelrahman NAJERA - JULI POCT LABORATORY [facility] [address], [address] [place] [address], [facility] * Glucose by meter (05/05/2024 9:40 PM CDT) GLUCOSE BY METER POCT 94 70 - 99 mg/dL 05/05/2024 9:47 PM CDT LABORATORY POC Blood, Capillary BLOOD SPECIMEN / Unknown 05/05/2024 9:40 PM CDT 05/05/2024 9:47 PM CDT Abdelrahman BUSTOS POCT LABORATORY POC [facility] [address], [address] [place] [address], [facility] * (ABNORMAL) Glucose by meter (05/05/2024 6:00 PM CDT) GLUCOSE BY METER POCT 201(H) 70 - 99 mg/dL 05/05/2024 6:09 PM CDT LABORATORY POC Blood, Capillary BLOOD SPECIMEN / Unknown 05/05/2024 6:00 PM CDT 05/05/2024 6:09 PM CDT Abdelrahman NAJERA - JULI POCT LABORATORY POC [facility] [address], [address] [place] [address], [facility] * Glucose by meter (05/05/2024 1:35 PM CDT) GLUCOSE BY METER POCT 91 70 - 99 mg/dL 05/05/2024 1:42 PM CDT LABORATORY POC Blood, Capillary BLOOD SPECIMEN / Unknown 05/05/2024 1:35 PM CDT 05/05/2024 1:42 PM CDT Abdelrahman NAJERA - JULI POCT LABORATORY POC [facility] [address], [address] [place] [address], [facility] * (ABNORMAL) Glucose by meter (05/05/2024 9:16 AM CDT) GLUCOSE BY METER POCT 104(H) 70 - 99 mg/dL 05/05/2024 9:22 AM CDT LABORATORY POC Blood, Capillary BLOOD SPECIMEN / Unknown 05/05/2024 9:16 AM CDT 05/05/2024 9:22 AM CDT Abdelrahman NAJERA - BEMANOJ POCT LABORATORY POC [facility] [address], [address] [place] [address], [facility] * EKG 12-lead, tracing only (05/05/2024 8:24 AM CDT) Systolic Blood Pressure mmHg RADIOLOGY RESULTS Diastolic Blood Pressure mmHg RADIOLOGY RESULTS Ventricular Rate 70 BPM RAD IOLOGY RESULTS Atrial Rate 70 BPM RADIOLOG Y RESULTS SC Interval 178 ms RADIOLOG Y RESULTS QRS Duration 100 ms RADIOLO GY RESULTS QT 466 ms RADIOLOGY RESULTS QTc 503 ms RADIOLOGY RESULTS P Horace 69 degrees RADIOLOGY RESULTS R AXIS 94 degrees RADIOLOGY RESULTS T Horace 246 degrees RADIOLOGY RESULTS Interpretation ECG Sinus [...] Comprehensive metabolic panel (05/05/2024 8:24 AM CDT) Sodium 142 135 - 145 mmol/L 05/05/2024 [...] 05/05/2024 9:25 AM CDT LABORATORY Comment:eGFR calculated usin 2020 CKD-EPI equation. [...] 98 - 107 mmol/L 05/05/2024 9:25 AM [facility] Glucose 103(H) 70 - 99 [...] MD LAB - BLOOD ORDERABL ES LABORATORY [facility] [address], [address] [place] [address], [place] [phone] * (ABNORMAL) Glucose by meter (05/05/2024 2:27 AM CDT) GLUCOSE BY METER POCT 140(H) 70 - 99 mg/dL 05/05/2024 2:34 AM CDT LABORATORY POC Blood, Capillary BLOOD SPECIMEN / Unknown 05/05/2024 2:27 AM CDT 05/05/2024 2:34 AM CDT Abdelrahman NAJERA - JULI POCT LABORATORY [facility] [address], [address], [place] [address], [facility] * (ABNORMAL) Glucose by meter (05/04/2024 10:43 PM CDT) GLUCOSE BY METER POCT 144(H) 70 - 99 mg/dL 05/04/2024 10:51 PM CDT LABORATORY POC Blood, Capillary BLOOD SPECIMEN / Unknown 05/04/2024 10:43 PM CDT 05/04/2024 10:51 PM CDT Abdelrahman BUSTOS POCT LABORATORY [facility] [address], [address], [place] [address], [facility] * (ABNORMAL) Glucose by meter (05/04/2024 6:18 PM CDT) GLUCOSE BY METER POCT 164(H) 70 - 99 mg/dL 05/04/2024 6:26 PM CDT LABORATORY POC Blood, Capillary BLOOD SPECIMEN / Unknown 05/04/2024 6:18 PM CDT 05/04/2024 6:26 PM CDT Abdelrahman NAJERA - JULI POCT LABORATORY [facility] [address], [address] [place] [address] * EKG 12-lead, tracing only (05/04/2024 4:10 PM CDT) Systolic Blood Pressure mmHg RADIOLOGY RESULTS Diastolic Blood Pressure mmHg RADIOLOGY RESULTS Ventricular Rate 79 BPM RAD IOLOGY RESULTS Atrial Rate 79 BPM RADIOLOG Y RESULTS SC Interval 174 ms RADIOLOG Y RESULTS QRS Duration 102 ms RADIOLO GY RESULTS QT 442 ms RADIOLOGY RESULTS QTc 506 ms RADIOLOGY RESULTS P Horace 65 degrees RADIOLOGY RESULTS R AXIS -54 degrees RADIOLOGY RESULTS T Horace 201 degrees RADIOLOGY RESULTS Interpretation ECG Sinus rhythm Left axis deviation Marked T wave abnormality, consider inferior ischemia Marked T wave abnormality, consider anterolateral ischemia Prolonged QT Abnormal ECG When compared with ECG of 03-May-2024 08:23, No significant change was found Confirmed by MD TIANNA, TYRONOS ([id number]) on 05/05/2024 2:35:18 PM RADIOLOGY RESULTS 05/04/2024 4:10 PM CDT 05/05/2024 2:35 PM CDT Rosalee Anglin DO ECG ORDERABLE S RADIOLOGY RESULTS * (ABNORMAL) Glucose by meter (05/04/2024 1:10 PM CDT) GLUCOSE BY METER POCT 108(H) 70 - 99 mg/dL 05/04/2024 1:17 PM CDT LABORATORY POC Blood, Capillary BLOOD SPECIMEN / Unknown 05/04/2024 1:10 PM CDT 05/04/2024 1:17 PM CDT Jacques NAJERA - JULI Skinner OCT LABORATORY POC [facility] [address], [address] [place] [address], [facility] * (ABNORMAL) Glucose by meter (05/04/2024 9:22 AM CDT) GLUCOSE BY METER POCT 146(H) 70 - 99 mg/dL 05/04/2024 9:29 AM CDT LABORATORY POC Blood, Capillary BLOOD SPECIMEN / Unknown 05/04/2024 9:22 AM CDT 05/04/2024 9:29 AM CDT Abdelrahman Esquivel PA-C LAB - BEAKER POCT LABORATORY POC [facility] [address], [address] [place] [address] * Tacrolimus by Tandem Mass Spectrometry (05/04/2024 7:50 AM CDT) Pathologist [facility] Tacrolimus by Tandem Mass Spectrometry 6.3 5.0 - 15.0 ug/L 05/04/2024 3:22 PM CDT [facility] Comment: Tacrolimus [...] post transplant: 5-8 Tacrolimus Last Dose Date 05/04/2024 3:22 PM CDT [facility] Comment:Last dose informatio n not provided. Tacrolimus Last Dose Time 05/04/2024 3:22 PM CDT [facility] Comment:Last dose informatio n not provided. Blood STRUCTURE OF RIGHT UPPER LIMB / Unknown Venipuncture / Unknown 05/04/2024 7:50 AM CDT 05/04/2024 7:59 AM CDT Narrative [facility] - 05/04/2024 3:22 PM CDT This test was developed and its performance characteristics determined by the [facility], ??Special Chemistry Laboratory. It has not been cleared or approved by the FDA. The laboratory is regulated under CLIA as qualified to perform high-complexity testing. This test is used for clinical purposes. It should not be regarded as investigational or for research. Jacques Iniguez MD LAB - BLOOD ORD ERABLES [facility] [address] [facility], [address] [place] [address], [facility] * CRP inflammation (05/04/2024 7:50 AM CDT) CRP Inflammation <3.00 <5.00 mg/L 05/04/20 9:10 AM CDT LABORATORY Blood STRUCTURE OF RIGHT UPPER LIMB / Unknown Venipuncture / Unknown 05/04/2024 7:50 AM CDT 05/04/2024 7:59 AM CDT Maurizio BARKLEY LAB - BLOOD ORD ERABLES LABORATORY [facility] [address], [address] [place] [address], [facility] [facility] [phone] * Lipase (05/04/2024 7:50 AM CDT) Lipase 21 13 - 60 U/L 05/04/2024 9:10 AM CDT LABORATORY Blood STRUCTURE OF RIGHT UPPER LIMB / Unknown Venipuncture / Unknown 05/04/2024 7:50 AM CDT 05/04/2024 7:59 AM CDT Maurizio BARKLEY LAB - BLOOD ORD ERABLES LABORATORY [facility] [address], [address] [place] [address], [facility] [phone] * (ABNORMAL) Comprehensive metabolic panel (05/04/2024 7:50 AM CDT) [facility] Sodium 142 135 - 145 mmol/L 05/04/2024 9:10 AM [facility] Potassium 4.3 3.4 - 5.3 mmol/L 05/04/2024 9:10 AM CDT LABORATORY Carbon Dioxide (CO2) 20(L) 22 - 29 mmol/L 05/04/2024 9:10 AM T LABORATORY Anion Gap 12 7 - 15 mmol/L 05/04/2024 9:10 AM T LABORATORY Urea Nitrogen 8.8 8.0 - 23.0 mg/dL 05/04/2024 9:10 AM [facility] LABORATORY Creatinine 1.29(H) 0.51 - 0.95 mg/dL 05/04/2024 9:10 AM T LABORATORY GFR Estimate 44(L) >60 mL/min/1.7 3m2 05/04/2024 9:10 AM T LABORATORY Comment:eGFR calculated usin 2020 CKD-EPI equation. Calcium 8.6(L) 8.8 - 10.4 mg/dL 05/04/2024 9:10 AM [facility] LABORATORY Comment:Reference intervals for this test were updated on 04/19/2024 to reflect our healthy population more accurately. There may be differences in the flagging of prior results with similar values performed with this method. Those prior results can be interpreted in the context of the updated reference intervals. Chloride 110(H) 98 - 107 mmol/L 05/04/2024 9:10 AM [facility] LABORATORY Glucose 147(H) 70 - 99 mg/dL 05/04/2024 9:10 AM T LABORATORY Alkaline Phosphatase 46 40 - 150 U/L 05/04/2024 9:10 AM CDT LABORATORY AST 15 0 - 45 U/L 05/04/2024 9:10 AM CDT LABORATORY ALT 8 0 - 50 U/L 05/04/2024 9:10 AM CDT LABORATORY Protein Total 5.8(L) 6.4 - 8.3 g/dL 05/04/2024 9:10 AM CDT LABORATORY Albumin 3.7 3.5 - 5.2 g/dL 05/04/2024 9:10 AM CDT LABORATORY Bilirubin Total 0.2 <=1.2 mg/dL 05/04/2024 9:10 AM CDT LABORATORY Blood STRUCTURE OF RIGHT UPPER LIMB / Unknown Venipuncture / Unknown 05/04/2024 7:50 AM CDT 05/04/2024 7:59 AM CDT Maurizio BARKLEY LAB - BLOOD ORD ERABLES LABORATORY [facility] [address], [address] [address], [place] [phone] * (ABNORMAL) Glucose by meter (05/04/2024 2:04 AM CDT) GLUCOSE BY METER POCT 149(H) 70 - 99 mg/dL 05/04/2024 2:11 AM CDT LABORATORY POC Blood, Capillary BLOOD SPECIMEN / Unknown 05/04/2024 2:04 AM CDT 05/04/2024 2:11 AM CDT Abdelrahman Esquivel PA-C LAB - BEAKER POCT LABORATORY POC [facility] [address], [address] [place] [address], [facility] * (ABNORMAL) Glucose by meter (05/03/2024 10:01 PM CDT) GLUCOSE BY METER POCT 158(H) 70 - 99 mg/dL 05/03/2024 10:09 PM CDT LABORATORY POC Blood, Capillary BLOOD SPECIMEN / Unknown 05/03/2024 10:01 PM CDT 05/03/2024 10:09 PM CDT Abdelrahman NAJERA - JULI POCT LABORATORY POC [facility] [address], [address] [place] [address], [facility] * Urine Culture (05/03/2024 7:39 PM CDT) Culture No Growth 05/05/2024 4:56 AM CDT [facility] LABORATORY Urine MID-STREAM URINE SPECIMEN / Unknown Non-blood Collection / Unknown 05/03/2024 7:39 PM CDT 05/03/2024 8:22 PM CDT Jacques Iniguez MD LAB - MICRO GEN ERAL ORDERABLES [facility] LABORATORY [facility] Inf[facility] Diseases [facility] Lab [address], [address] [place] [address], [facility] * (ABNORMAL) Glucose by meter (05/03/2024 5:23 PM CDT) GLUCOSE BY METER POCT 128(H) 70 - 99 mg/dL 05/03/2024 5:30 PM CDT LABORATORY POC Blood, Capillary BLOOD SPECIMEN / Unknown 05/03/2024 5:23 PM CDT 05/03/2024 5:30 PM CDT Abdelrahman NAJERA - JULI POCT LABORATORY POC [facility] [address], [address] [place] [address], [facility] * (ABNORMAL) Glucose by meter (05/03/2024 12:13 PM CDT) GLUCOSE BY METER POCT 124(H) 70 - 99 mg/dL 05/03/2024 12:21 PM CDT LABORATORY POC Blood, Capillary BLOOD SPECIMEN / Unknown 05/03/2024 12:13 PM CDT 05/03/2024 12:21 PM CDT Jacques Muñiz MD LAB - BEAKER P OCT LABORATORY POC [facility] [address], [address] [place] [address], [facility] * Magnesium (05/03/2024 11:06 AM CDT) Magnesium 2.1 1.7 - 2.3 mg/dL 05/03/2024 11:47 AM CDT LABORATORY Blood STRUCTURE OF RIGHT UPPER LIMB / Unknown Venipuncture / Unknown 05/03/2024 11:06 AM CDT 05/03/2024 11:24 AM CDT Jacques Muñiz MD LAB - BLOOD OR DERABLES LABORATORY [facility] [address], [address] [place] [address], [facility] [phone] * (ABNORMAL) Comprehensive metabolic panel (05/03/2024 11:06 AM CDT) Sodium 140 135 - 145 mmol/L 05/03/2024 11:47 AM CDT LABORATORY Potassium 4.3 3.4 - 5.3 mmol/L 05/03/2024 11:47 AM CDT LABORATORY Carbon Dioxide (CO2) 25 22 - 29 mmol/L 05/03/2024 11:47 AM CDT LABORATORY Anion Gap 7 7 - 15 mmol/L 05/03/2024 11:47 AM CDT LABORATORY Urea Nitrogen 7.4(L) 8.0 - 23.0 mg/dL 05/03/2024 11:47 AM CDT LABORATORY Creatinine 1.32(H) 0.51 - 0.95 mg/dL 05/03/2024 11:47 AM CDT LABORATORY GFR Estimate 43(L) >60 mL/min/1.7 3m2 05/03/2024 11:47 AM CDT LABORATORY Comment:eGFR calculated us2020 CKD-EPI equation. Calcium 8.9 8.8 - 10.4 mg/dL 05/03/2024 11:47 AM T LABORATORY Comment:Reference intervals for this test were updated on 04/19/2024 to reflect our healthy population more accurately. There may be differences in the flagging of prior results with similar values performed with this method. Those prior results can be interpreted in the context of the updated reference intervals. Chloride 108(H) 98 - 107 mmol/L 05/03/2024 11:47 AM [facility] LABORATORY Glucose 105(H) 70 - 99 mg/dL 05/03/2024 11:47 AM T LABORATORY Alkaline Phosphatase 48 40 - 150 U/L 05/03/2024 11:47 AM [facility] LABORATORY AST 20 0 - 45 U/L 05/03/2024 11:47 AM T LABORATORY ALT 9 0 - 50 U/L 05/03/2024 11:47 AM [facility] LABORATORY Protein Total 5.9(L) 6.4 - 8.3 g/dL 05/03/2024 11:47 AM [facility] LABORATORY Albumin 3.6 3.5 - 5.2 g/dL 05/03/2024 11:47 AM T LABORATORY Bilirubin Total 0.3 <=1.2 mg/dL 05/03/2024 11:47 AM [facility] LABORATORY Blood STRUCTURE OF RIGHT UPPER LIMB / Unknown Venipuncture / Unknown 05/03/2024 11:06 AM CDT 05/03/2024 11:24 AM CDT Jacques Muñiz MD LAB - BLOOD OR DERABLES LABORATORY [facility] [address], [address] [place] [address], [facility] [phone] * (ABNORMAL) CBC with platelets (05/03/2024 11:06 AM CDT) WBC Count 6.4 4.0 - 11.0 10e3/uL 05/03/2024 11:27 AM CDT LABORATORY RBC Count 4.38 3.80 - 5.20 10e6/uL 05/03/2024 11:27 AM CDT LABORATORY Hemoglobin 11.1(L) 11.7 - 15.7 g/dL 05/03/2024 11:27 AM CDT LABORATORY Hematocrit 35.2 35.0 - 47.0 % 05/03/2024 11:27 AM CDT LABORATORY MCV 80 78 - 100 fL 05/03/2024 11:27 AM CDT LABORATORY MCH 25.3(L) 26.5 - 33.0 pg 05/03/2024 11:27 AM CDT LABORATORY MCHC 31.5 31.5 - 36.5 g/dL 05/03/2024 11:27 AM CDT LABORATORY RDW 14.3 10.0 - 15.0 % 05/03/2024 11:27 AM CDT LABORATORY Platelet Count 237 150 - 450 10e3/uL 05/03/2024 11:27 AM CDT LABORATORY Blood STRUCTURE OF RIGHT UPPER LIMB / Unknown Venipuncture / Unknown 05/03/2024 11:06 AM CDT 05/03/2024 11:24 AM CDT Jacques Muñiz MD LAB - BLOOD OR DERABLES LABORATORY [facility] [address], [address] [place] [address], [facility] [phone] * (ABNORMAL) Glucose by meter (05/03/2024 8:25 AM CDT) GLUCOSE BY METER POCT 101(H) 70 - 99 mg/dL 05/03/2024 8:32 AM CDT LABORATORY POC Blood, Capillary BLOOD SPECIMEN / Unknown 05/03/2024 8:25 AM CDT 05/03/2024 8:32 AM CDT Abdelrahman NAJERA - JULI POCT LABORATORY POC [facility] [address], [address] [place] [address] * EKG 12-lead, tracing only (05/03/2024 8:23 AM CDT) Systolic Blood Pressure mmHg RADIOLOGY RESULTS Diastolic Blood Pressure mmHg RADIOLOGY RESULTS Ventricular Rate 81 BPM RAD IOLOGY RESULTS Atrial Rate 81 BPM RADIOLOG Y RESULTS SC Interval 174 ms RADIOLOG Y RESULTS QRS Duration 102 ms RADIOLO GY RESULTS QT 462 ms RADIOLOGY RESULTS QTc 536 ms RADIOLOGY RESULTS P Horace 73 degrees RADIOLOGY RESULTS R AXIS 260 degrees RADIOLOGY RESULTS T Horace 246 degrees RADIOLOGY RESULTS Interpretation ECG Sinus rhythm Right atrial enlargement Right superior axis deviation Pulmonary disease pattern Marked T wave abnormality, consider inferior ischemia Marked T wave abnormality, consider anterolateral ischemia Prolonged QT Abnormal ECG When compared with ECG of 02-May-2024 15:26, Incomplete right bundle branch block is no longer Present Criteria for Septal infarct are no longer Present Confirmed by MD MARTIN, CECILLE ([id number]) on 05/03/2024 9:49:25 AM RADIOLOGY RESULTS 05/03/2024 8:23 AM CDT 05/03/2024 9:49 AM CDT Rosalee Anglin DO ECG ORDERABLE S RADIOLOGY RESULTS * MR Abdomen MRCP w/o & w [...] ABDOMEN MRCP W/O and W CONTRAST LOCATION: [facility] DATE: 05/03/2024 INDICATION: history of liver and [...] of previously described infarct. Normal adrenals. Atrophic cher-ae [place] kidneys. Right lower quadrant transplant kidney with [...] ABDOMEN MRCP W/O and W CONTRAST LOCATION: [facility] DATE: 05/03/2024 INDICATION: history of liver and [...] LIVER: Status post hepatic transplantation. Multiple benign [id number] cysts. No suspicious liver lesion. The central [...] region of previously describedinfarct. Normal adrenals. Atrophic cher[place]ae [place] kidneys. Right lower quadranttransplant kidney with hypoenhancement [...] MD IMG MRI ORDERA BLES * (ABNORMAL) Glucose by meter (05/02/2024 9:49 PM CDT) GLUCOSE BY METER POCT 117(H) 70 - 99 mg/dL 05/02/2024 9:56 PM CDT LABORATORY POC Comment:Dr/RN Notified Blood, Capillary BLOOD SPECIMEN / Unknown 05/02/2024 9:49 PM CDT 05/02/2024 9:56 PM CDT Jacques Muñiz MD LAB - MERGED WITH [facility] LABORATORY POC [facility] [address], [address] [place] [address], [facility] * Blood Culture Line, venous (05/02/2024 5:11 PM CDT) Culture No Growth 05/07/2024 5:16 PM CDT [facility] LABORAT[facility] Blood VENOUS LINE / Unknown Venipuncture / Unknown 05/02/2024 5:11 PM CDT 05/02/2024 5:15 PM CDT Abdelrahman Esquivel PA-C LAB - MICRO GENERAL ORDERABLES [facility] LABORATORY [facility] Inf. Diseases Diag. Lab [address], [address] [place] [address], [facility] * (ABNORMAL) Lactic acid whole blood (05/02/2024 5:11 PM CDT) Lactic Acid 0.6(L) 0.7 - 2.0 mmol/L 05/02/2024 5:16 PM CDT LABORATORY Blood VENOUS LINE / Unknown Venipuncture / Unknown 05/02/2024 5:11 PM CDT 05/02/2024 5:15 PM CDT Enrique Cuba MD LAB - BLOOD ORDERABL ES LABORATORY [facility] [address], [address] [place] [address], [facility] [phone] * US Renal Transplant with Doppler (05/02/2024 [...] EXAM: US RENAL TRANSPLANT WITH DOPPLER LOCATION: [facility] DATE: 05/02/2024 INDICATION: Right lower quadrant renal [...] EXAM: US RENAL TRANSPLANT WITH DOPPLER LOCATION: [facility] DATE: 05/02/2024 INDICATION: Right lower quadrant renal [...] in the renal allograft. Abdelrahman Esquivel PA-C IMG US ORDERABLES * EKG 12-lead, tracing only (05/02/2024 3:26 PM CDT) Systolic Blood Pressure mmHg RADIOLOGY RESULTS Diastolic Blood Pressure mmHg RADIOLOGY RESULTS Ventricular Rate 89 BPM RAD IOLOGY RESULTS Atrial Rate 89 BPM RADIOLOG Y RESULTS SC Interval 182 ms RADIOLOG Y RESULTS QRS Duration 100 ms RADIOLO GY RESULTS QT 478 ms RADIOLOGY RESULTS QTc 581 ms RADIOLOGY RESULTS P Horace 64 degrees RADIOLOGY RESULTS R AXIS 261 degrees RADIOLOGY RESULTS T Horace 228 degrees RADIOLOGY RESULTS Interpretation ECG Critical Test Result: Long QTc Sinus rhythm Biatrial enlargement Right superior axis deviation Pulmonary disease pattern Incomplete right bundle branch block Right ventricular hypertrophy Septal infarct , age undetermined Marked T wave abnormality, consider inferior ischemia Marked T wave abnormality, consider anterolateral ischemia Prolonged QT Abnormal ECG When compared with ECG of 02-May-2024 13:14, (unconfirmed) Septal infarct is now Present Confirmed by GENERATED REPORT, COMPUTER ([id number]), editor & co founder Melissa Lindsey ([id number]) on 05/03/2024 5:07:24 AM RADIOLOGY RESULTS 05/02/2024 3:26 PM CDT 05/03/2024 5:07 AM CDT Enrique Cuba MD ECG ORDERABLES RADIOLOGY RESULTS * (ABNORMAL) Troponin T, High Sensitivity (05/02/2024 3:23 PM CDT) Pathologist [facility] Troponin T, High Sensitivity 44(H) <=14 ng/L [...] PA-C LAB - BLOOD ORDERABL ES LABORATORY [facility] [address], [address] [place] [address] [phone] * UA with Microscopic reflex to Culture (05/02/2024 3:01 PM CDT) Color Urine Light Yellow Colorless, Straw, Light Yellow, Yellow 05/02/2024 3:20 PM CDT LABORATORY Appearance Urine Clear Clear 05/02/20 3:20 PM CDT LABORATORY Glucose Urine Negative Negative mg/dL 05/02/2024 3:20 PM CDT LABORATORY Bilirubin Urine Negative Negative 3:20 PM CDT LABORATORY Ketones Urine Negative Negative mg/dL 05/02/2024 3:20 PM CDT LABORATORY Specific [place] Urine 1.017 1.003 - 1.035 05/02/2024 3:20 PM CDT LABORATORY Blood Urine Negative Negative 05/02/2024 3:20 PM CDT LABORATORY pH Urine 7.0 5.0 - 7.0 05/02/2024 3:20 PM CDT LABORATORY Protein Albumin Urine Negative Negative mg/dL 05/02/2024 3:20 PM CDT LABORATORY Urobilinogen Urine Normal Normal, 2.0 mg/dL 05/02/2024 3:20 PM CDT LABORATORY Nitrite Urine Negative Negative 05/02/2024 3:20 PM CDT LABORATORY Leukocyte Esterase Urine Negative Negative 05/02/2024 3:20 PM CDT LABORATORY RBC Urine 0 <=2 /HPF 05/02/2024 3:20 PM CDT LABORATORY WBC Urine <1 <=5 /HPF 05/02/2024 3:20 PM CDT LABORATORY Squamous Epithelials Urine 1 <=1 /HPF 05/02/2024 3:20 PM CDT LABORATORY Urine URINE SPECIMEN OBTAINED BY CLEAN CATCH PROCEDURE / Unknown Non-blood Collection / Unknown 05/02/2024 3:01 PM CDT 05/02/2024 3:15 PM CDT Narrative LABORATORY - 05/02/2024 3:20 PM CDT Urine Culture not indicated Enrique Cuba MD LAB - URINE ORDERABL ES LABORATORY [facility] [address], [address] [place] [address], [facility] [phone] * CT Chest (PE) Abdomen Pelvis w [...] 3D MIP reconstructions were performed by the architectural technologist. Dose reduction techniques were used. CONTRAST: [...] GLANDS: No significant nodules. KIDNEYS/BLADDER: Atrophic bilateral cher-ae heights kidneys which are symmetrically enhancing without hydronephrosis. [...] 3D MIP reconstructions were performed by the architectural technologist. Dose reduction techniques were used. CONTRAST: [...] GLANDS: No significant nodules. KIDNEYS/BLADDER: Atrophic bilateral cher[place]ae [place] kidneys which are symmetrically enhancing without hydronephrosis. [...] months. LEYDA MCKENZIE MD Abdelrahman Esquivel PA-C [facility] CT ORDERABLES * Symptomatic Influenza A/B, RSV, & SARS-CoV2 PCR (COVID-19) Nasopharyngeal (05/02/2024 1:37 PM CDT) Pathologist [facility] Influenza A PCR Negative Negative 05/02/2024 2:27 [...] 1:37 PM CDT 05/02/2024 1:[address] [facility] LABORATORY - 05/02/2024 2:27 PM CDT Testing was performed using the Xpert Xpress CoV2/Flu/RSV Assay on the [employer] GeneXpert Instrument. This test should be ordered [...] management. This test was validated by the [facility]TO[facility]. These laboratories are certified under the Clinical Laboratory Improvement Amendments of 1988 (CLIA-88) as qualified to perform high complexity laboratory testing. Abdelrahman Esquivel PA-C LAB - MICRO GENERAL ORDERABLES LABORATORY [facility] [address], [address] [place] [address], [facility] [phone] * (ABNORMAL) iStat Gases (lactate) venous, POCT [...] MD LAB - BEAKER POCT LABORATORY POC [facility] [address], [address] [place] [address], [facility] * (ABNORMAL) Hemoglobin A1c (05/02/2024 1:23 PM CDT) Hemoglobin A1C 6.1(H) <5.7 % 05/02/2024 9:34 PM CDT LABORATORY Comment: Normal <5.7% Prediabetes 5.7-6.4% ?? Diabetes 6.5% or higher Note: Adopted from ADA consensus guidelines. Blood BLOOD SPECIMEN / Unknown Venipuncture / Unknown 05/02/2024 1:23 PM CDT 05/02/2024 1:40 PM CDT Jacques Muñiz MD LAB - BLOOD OR DERABLES LABORATORY [facility] [address], [address], [place] [address], [facility] [phone] * T4 free (05/02/2024 1:23 PM CDT) Free T4 1.39 0.90 - 1.70 ng/dL 05/02/2024 2:57 PM CDT LABORATORY Blood BLOOD SPECIMEN / Unknown Venipuncture / Unknown 05/02/2024 1:23 PM CDT 05/02/2024 1:40 PM CDT Abdelrahman Esquivel PA-C LAB - BLOOD ORDERABL ES LABORATORY [facility] [address], [address] [place] [address], [facility] [phone] * (ABNORMAL) TSH with free T4 reflex (05/02/2024 1:23 PM CDT) TSH 4.64(H) 0.30 - 4.20 uIU/mL 05/02/2024 2:35 PM CDT LABORATORY Blood BLOOD SPECIMEN / Unknown Venipuncture / Unknown 05/02/2024 1:23 PM CDT 05/02/2024 1:40 PM CDT Abdelrahman Esquivel PA-C LAB - BLOOD ORDERABL ES Performing Organization Address City/[facility]/ZIP Co de Phone Number LABORATORY [facility] [address], [address], [place] [address], [facility] [phone] * (ABNORMAL) Nt probnp inpatient (BNP) (05/02/2024 [...] PA-C LAB - BLOOD ORDERABL ES LABORATORY [facility] [address], [address], [place] [address], [facility] [phone] * Extra Red Top Tube (05/02/2024 1:23 PM CDT) Hold Specimen [facility] 05/02/2024 2:47 PM CDT LABORATORY Blood STRUCTURE OF LEFT UPPER LIMB / Unknown Venipuncture / Unknown 05/02/2024 1:23 PM CDT 05/02/2024 1:40 PM CDT Enrique Cuba MD LAB - BLOOD ORDERABL ES LABORATORY [facility] [address], [address] [place] [address], [facility] [phone] * Extra Blue Top Tube (05/02/2024 1:23 PM CDT) Hold Specimen [facility] 05/02/2024 2:47 PM CDT LABORATORY Blood STRUCTURE OF LEFT UPPER LIMB / Unknown Venipuncture / Unknown 05/02/2024 1:23 PM CDT 05/02/2024 1:40 PM CDT Enrique Cuba MD LAB - BLOOD ORDERABL ES LABORATORY [facility] [address], [address] [place] [address], [facility] [phone] * CBC with platelets and differential (05/02/2024 1:23 PM CDT) WBC Count 7.7 4.0 - 11.0 10e3/uL 05/02/2024 1:46 PM CDT LABORATORY RBC Count 4.97 3.80 - 5.20 10e6/uL 05/02/2024 1:46 PM CDT LABORATORY Hemoglobin 13.2 11.7 - 15.7 g/dL 05/02/2024 1:46 PM CDT LABORATORY Hematocrit 39.7 35.0 - 47.0 % 05/02/2024 1:46 PM CDT LABORATORY MCV 80 78 - 100 fL 05/02/2024 1:46 PM CDT LABORATORY MCH 26.6 26.5 - 33.0 pg 05/02/2024 1:46 PM CDT LABORATORY MCHC 33.2 31.5 - 36.5 g/dL 05/02/2024 1:46 PM CDT LABORATORY RDW 13.9 10.0 - 15.0 % 05/02/2024 1:46 PM CDT LABORATORY Platelet Count 272 150 - 450 10e3/uL 05/02/2024 1:46 PM CDT LABORATORY % Neutrophils 74 % 05/02/2024 1:46 PM CDT LABORATORY % Lymphocytes 18 % 05/02/2024 1:46 PM CDT LABORATORY % Monocytes 7 % 05/02/2024 1:46 PM CDT LABORATORY % Eosinophils 1 % 05/02/2024 1:46 PM CDT LABORATORY % Basophils 0 % 05/02/2024 1:46 PM CDT LABORATORY % Immature Granulocytes 1 % 05/02/2024 1:46 PM CDT LABORATORY NRBCs per 100 WBC 0 <1 /100 024 1:46 PM CDT LABORATORY Absolute Neutrophils 5.6 1.6 - 8.3 10e3/uL 05/02/2024 1:46 PM [facility] Absolute Lymphocytes 1.3 0.8 - 5.3 10e3/uL 05/02/2024 1:46 PM [facility] Absolute Monocytes 0.6 0.0 - 1.3 10e3/uL 05/02/2024 1:46 PM [facility] Absolute Eosinophils 0.1 0.0 - 0.7 10e3/uL 05/02/2024 1:46 PM [facility] Absolute Basophils 0.0 0.0 - 0.2 10e3/uL 05/02/2024 1:46 PM [facility] Absolute Immature Granulocytes 0.0 <=0.4 10e3/uL 05/02/2024 1:46 PM [facility] Absolute NRBCs 0.0 10e3/uL 05/02/2024 1:46 PM CDT LABORATORY Blood BLOOD SPECIMEN / Unknown Venipuncture / Unknown 05/02/2024 1:23 PM CDT 05/02/2024 1:40 PM CDT Enrique Cuba MD LAB - BLOOD ORDERABL ES LABORATORY [facility] [address], [address] [place] [address], [place] [phone] * (ABNORMAL) Magnesium (05/02/2024 1:23 PM CDT) Magnesium 1.6(L) 1.7 - 2.3 mg/dL 05/02/2024 2:06 PM CDT LABORATORY Blood BLOOD SPECIMEN / Unknown Venipuncture / Unknown 05/02/2024 1:23 PM CDT 05/02/2024 1:40 PM CDT Enrique Cuba MD LAB - BLOOD ORDERABL ES LABORATORY [facility] [address], [address] [place] [address], [place] [phone] * (ABNORMAL) Troponin T, High Sensitivity (05/02/2024 1:23 PM CDT) Troponin T, High Sensitivity 45(H) <=14 ng/L 05/02/2024 2:06 PM CDT LABORATORY Comment: Either a High [...] follow-up, or urgent outpatient provocative testing. Blood BLOOD SPECIMEN / Unknown Venipuncture / Unknown 05/02/2024 1:23 PM CDT 05/02/2024 1:40 PM CDT Enrique Cuba MD LAB - BLOOD ORDERABL ES LABORATORY [facility] [address], [address] [place] [address], [facility] [phone] * Bilirubin direct (05/02/2024 1:23 PM CDT) Bilirubin Direct <0.20 0.00 - 0.30 mg/dL 05/02/2024 2:06 PM CDT LABORATORY Blood BLOOD SPECIMEN / Unknown Venipuncture / Unknown 05/02/2024 1:23 PM CDT 05/02/2024 1:40 PM CDT Enrique Cuba MD LAB - BLOOD ORDERABL ES LABORATORY [facility] [address], [address] [place] [address], [facility] [phone] * Lipase (05/02/2024 1:23 PM CDT) Lipase 27 13 - 60 U/L 05/02/2024 2:06 PM CDT LABORATORY Blood BLOOD SPECIMEN / Unknown Venipuncture / Unknown 05/02/2024 1:23 PM CDT 05/02/2024 1:40 PM CDT Enrique Cuba MD LAB - BLOOD ORDERABL ES LABORATORY [facility] [address], [address] [place] [address], [facility] [phone] * (ABNORMAL) Comprehensive metabolic panel (05/02/2024 1:23 PM CDT) Sodium 138 135 - 145 mmol/L 05/02/2024 2:06 PM [facility] Potassium 3.5 3.4 - 5.3 mmol/L 05/02/2024 2:06 PM [facility] Carbon Dioxide (CO2) 21(L) 22 - 29 mmol/L 05/02/2024 2:06 PM [facility] Anion Gap 12 7 - 15 mmol/L 05/02/2024 2:06 PM [facility] Urea Nitrogen 11.7 8.0 - 23.0 mg/dL 05/02/2024 2:06 PM [facility] Creatinine 1.37(H) 0.51 - 0.95 mg/dL 05/02/2024 2:06 PM [facility] GFR Estimate 41(L) >60 mL/min/1.7 3m2 05/02/2024 2:06 PM [facility] Comment:eGFR calculated usin 2020 CKD-EPI equation. Calcium 9.4 8.8 - 10.4 mg/dL 05/02/2024 2:06 PM [facility] Comment:Reference intervals for this test were updated on 04/19/2024 to reflect our healthy population more accurately. There may be differences in the flagging of prior results with similar values performed with this method. Those prior results can be interpreted in the context of the updated reference intervals. Chloride 105 98 - 107 mmol/L 05/02/2024 2:06 PM [facility] Glucose 127(H) 70 - 99 mg/dL 05/02/2024 2:06 PM [facility] Alkaline Phosphatase 58 40 - 150 U/L 05/02/2024 2:06 PM [facility] AST 20 0 - 45 U/L 05/02/2024 2:06 PM [facility] ALT 11 0 - 50 U/L 05/02/2024 2:06 PM [facility] Protein Total 6.3(L) 6.4 - 8.3 g/dL 05/02/2024 2:06 PM [facility] Albumin 3.9 3.5 - 5.2 g/dL 05/02/2024 2:06 PM [facility] Bilirubin Total 0.3 <=1.2 mg/dL 05/02/2024 2:06 PM [facility] Blood BLOOD SPECIMEN / Unknown Venipuncture / Unknown 05/02/2024 1:23 PM CDT 05/02/2024 1:40 PM CDT Enrique Cuba MD LAB - BLOOD ORDERABL ES LABORATORY [facility] 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 Dilated intrahepatic bile duct Other specified disorders of biliary tract Abnormality of pancreatic duct Other specified disease of pancreas Type 2 diabetes mellitus without complication, with long-term current use of insulin Pain Generalized pain Shortness of breath Hypomagnesemia Disorders of magnesium metabolism documented in this encounter Administered Medications Inactive Administered Medications - up to 3 most recent administrations Medication Order MAR Action Action Date Dose Rate Site acetaminophen (TYLENOL) Suppository 650 mg 650 mg, Rectal, EVERY 4 HOURS PRN, mild pain, other, and adjunct with moderate or severe pain or per patient request, Starting on Thu05/02/24 at 2106, Alternate with ibuprofen if ordered. Maximum acetaminophen dose from all sources = 75 mg/kg/day not to exceed 4 grams/day. acetaminophen (TYLENOL) tablet 650 mg 650 mg, Oral, EVERY 4 HOURS PRN, mild pain, other, and adjunct with moderate or severe pain or per patient request, Starting on Thu05/02/24 at 2106, Alternate with ibuprofen if ordered. Maximum acetaminophen dose from all sources = 75 mg/kg/day not to exceed 4 grams/day. $Given 05/06/2024 10:47 AM CDT 650 mg $Given 05/05/2024 9:13 PM CDT 650 mg $Given 05/03/2024 8:13 PM CDT 650 mg carvedilol (COREG) tablet 3.125 mg 3.125 mg, Oral, 2 TIMES DAILY WITH MEALS, First dose on Thu05/04/24 at 1800, Tablets can be crushed and given via enteral route. Hold if sbp <110 or hr <60 $Given 05/06/2024 8:07 AM CDT 3.125 mg $Given 05/05/2024 6:02 PM CDT 3.125 mg $Given 05/05/2024 10:37 AM CDT 3.125 mg cefTRIAXone (ROCEPHIN) 2 g vial to attach to NS 100 ml bag for ADULTS or NS 50 ml bag for PEDS Routine, 2 g, Intravenous, EVERY 24 HOURS, First dose on Thu05/06/24 at 0900, Indications: Urinary Tract Infection $New Bag 05/06/2024 10:10 AM CDT 2 g 100 mL/hr cyclobenzaprine (FLEXERIL) tablet 5 mg 5 mg, Oral, EVERY 8 HOURS PRN, muscle spasms, Starting on Thu05/04/24 at 0754 $Given 05/04/2024 10:08 AM CDT 5 mg dextrose 50 % injection 25-50 mL 25-50 mL, Intravenous, EVERY 15 MIN PRN, low blood sugar, Administer over 1-5 Minutes, Starting on Thu05/02/24 at 2104, Use if have IV access, BG less than 70 mg/dL and meet dose criteria below: Dose if conscious and alert (or disorientated) and NPO = 25 mL Dose if unconscious / not alert = 50 mL Give first dose for initial blood glucose less than 70 mg/dL. If blood glucose at 15 minute recheck is less than or equal to 80 mg/dL continue to administer carbohydrate treatment every 15 minutes, as needed, based on blood glucose and assessment parameters until blood glucose level is above 80 mg/dL x 2 consecutive 15 minute checks. gadobutrol (GADAVIST) injection 10 mL 10 mL, Intravenous, ONCE, On Thu05/03/24 at 0330, For 1 dose, Supplied by, and administered by MRI. $Given 05/03/2024 3:27 AM CDT 10 mLs glucagon injection 1 mg 1 mg, Subcutaneous, EVERY 15 MIN PRN, low blood sugar, May repeat x 1 only, Starting on Thu05/02/24 at 2104, May give SQ or IM. ONLY use glucagon IF patient has NO IV access AND is UNABLE to swallow AND blood glucose is LESS than or EQUAL to 50 mg/dL. glucose gel 15-30 g 15-30 g, Oral, EVERY 15 MIN PRN, low blood sugar, Starting on Thu05/02/24 at 2104, Give first dose for initial blood glucose less than 70 mg/dL per the dosing instructions below. If blood glucose at 15 minute rechecks is still less than or equal to 80 mg/dL, continue to administer doses per blood glucose parameters every 15 minutes, as needed, until blood glucose level is at or above 80 mg/dL x 2 consecutive 15 minute checks. Dosing Instructions: ~If patient is conscious and able to swallow and NO enteral tube For initial BG 51-69mg/dL OR 15 minute recheck BG 51- 80 mg/dL - give 15 g For BG less than or equal to 50 mg/dL - give 30 g ~ If Enteral tube For initial BG 51-69mg/dL OR 15 minute recheck BG 51- 80 mg/dL - give apple juice 120 mL (4 oz or 15 g of CHO) via enteral tube For BG less than or equal to 50 mg/dL - Give apple juice 240 mL (8 oz or 30 g of CHO) via enteral tube ~Oral gel is preferable for conscious and able to swallow patient. ~IF gel unavailable or patient refuses may provide apple juice per Enteral tube dosing instructions. Document juice on I and O flowsheet. heparin ANTICOAGULANT injection 5,000 Units 5,000 Units, Subcutaneous, EVERY 8 HOURS, First dose on Thu05/04/24 at 1800, HOLD heparin IF platelet count falls below 50% baseline or less than 100,000 / ??L and notify provider. Use this product If CrCl less than 30 mL/min. High concentration heparin. Not for line flush or cath care. hydrocortisone sodium succinate PF (solu-CORTEF) injection 100 mg 100 mg, Intravenous, EVERY 8 HOURS, Administer over 1-4 Minutes, First dose on Thu05/03/24 at 1700 $Given 05/04/2024 1:48 AM CDT 100 mg $Given 05/03/2024 6:20 PM CDT 100 mg HYDROmorphone (DILAUDID) injection 0.2 mg 0.2 mg, Intravenous, EVERY 3 HOURS PRN, severe pain, Starting on Thu05/03/24 at 0956 $Given 05/03/2024 9:43 PM CDT 0.2 mg $Given 05/03/2024 6:20 PM CDT 0.2 mg $Given 05/03/2024 10:12 AM CDT 0.2 mg insulin aspart (NovoLOG) injection (RAPID ACTING) 1-7 Units, Subcutaneous, 3 TIMES DAILY BEFORE MEALS, First dose on Thu05/03/24 at 0730, Correction Scale - MEDIUM INSULIN RESISTANCE DOSING Do Not give Correction Insulin if Pre-Meal BG less than 140. For Pre-Meal BG 140 - 189 give 1 unit. For Pre-Meal BG 190 - 239 give 2 units. For Pre-Meal BG 240 - 289 give 3 units. For Pre-Meal BG 290 - 339 give 4 units. For Pre-Meal BG 340- 389 give 5 units. For Pre-Meal BG 390-439 give 6 units For Pre-Meal BG greater than or equal to 440 give 7 units. To be given with prandial insulin, and based on pre-meal blood glucose. Administering insulin within 5 minutes of the start of the meal is ideal. Administer insulin no more than 30 minutes after the start of the meal, unless directed otherwise by provider. Notify provider if glucose greater than or equal to 350 mg/dL after administration of correction dose. $Given 05/05/2024 6:10 PM CDT 2 Units $Given 05/04/2024 6:37 PM CDT 1 Units $Given 05/04/2024 9:44 AM CDT 1 Units insulin aspart (NovoLOG) injection (RAPID ACTING) 4 Units, Subcutaneous, 3 TIMES DAILY WITH MEALS, First dose on Thu05/03/24 at 0900 $Given 05/06/2024 2:38 PM CDT 4 U nits $Given 05/05/2024 6:11 PM CDT 4 Units $Given 05/05/2024 2:57 PM CDT 4 Units insulin glargine (LANTUS PEN) injection 10 Units 10 Units, Subcutaneous, EVERY MORNING, First dose on Thu05/03/24 at 0900 $Given 05/06/2024 10:22 AM CDT 10 Units $Given 05/05/2024 10:45 AM CDT 10 Units $Given 05/04/2024 9:35 AM CDT 10 Units iopamidol (ISOVUE-370) solution 62 mL 62 mL, Intravenous, ONCE, On Thu05/02/24 at 1435, For 1 dose $Given 05/02/2024 2:39 PM CDT 62 mLs lactated ringers infusion at 75 mL/hr, Intravenous, CONTINUOUS, Starting on Thu05/02/24 at 2130, Until Thu05/03/24 at 0729 $New Bag 05/02/2024 9:41 PM CDT 75 mL/hr levothyroxine (SYNTHROID/LEVOTHROID) tablet 75 mcg 75 mcg, Oral or NG Tube, DAILY, First dose on Thu05/03/24 at 0900, Separate oral administration of iron- or calcium-containing products and levothyroxine by at least 4 hours. $Given 05/06/2024 8:08 AM CDT 75 mcg $Given 05/05/2024 10:38 AM CDT 75 mcg $Given 05/04/2024 9:33 AM CDT 75 mcg Lidocaine (LIDOCARE) 4 % Patch 1-3 patch 1-3 patch, Transdermal, EVERY 24 HOURS 0800, Administer over 12 Hours, First dose on Thu05/04/24 at 0800, Apply patch(s) to left back, affected areas. To prevent lidocaine toxicity, patient should be patch free for 12 hrs daily. Patches may be cut to smaller size prior to removing release liner. Reminder: Remove previous patch before applying new patch. NEVER APPLY HEAT OVER PATCH which increases absorption and may lead to local anesthetic toxicity. Do not apply over area where liposomal bupivacaine was injected for 96 hours post injection. $Patch/Med Applied 05/06/2024 10:52 AM CDT 1 patch Right Lower Back $Patch/Med Applied 05/04/2024 9:34 AM CDT 1 patch Left Lower Back magnesium sulfate 2 g in 50 mL sterile water intermittent infusion 2 g, Intravenous, Administer over 60 Minutes, at 50 mL/hr, ONCE, On Thu05/02/24 at 1330, For 1 dose $New Bag 05/02/2024 1:35 PM CDT 2 g 50 mL/hr mycophenolate (GENERIC EQUIVALENT) capsule 500 mg 500 mg, Oral, 2 TIMES DAILY, First dose on Thu05/02/24 at 2130, Do not open capsule for use down feeding tube. Check if DRUG LEVEL is needed BEFORE administering dose. This order specifically allows the use of GENERIC mycophenolate as an equivalent of CELLCEPT capsules. When possible, take 1 to 2 hours apart from any product containing magnesium or aluminum. $Given 05/06/2024 8:09 AM CDT 500 mg $Given 05/05/2024 9:03 PM CDT 500 mg $Given 05/05/2024 10:39 AM CDT 500 mg naloxone (NARCAN) injection 0.2 mg 0.2 mg, Intravenous, EVERY 2 MIN PRN, opioid reversal, Starting on Thu05/03/24 at 1007, Administer intravenous route when available and notify provider when administered. For unintended sedation or respiratory depression if all of the below criteria are met: ~ respiratory rate LESS than or EQUAL to 8. ~SaO2 less than 92% and or/end-tidal CO2 is greater than 50. ~ the patient is receiving an opioid, has unintended sedations assessed as RASS (-3), and is currently not on mechanical ventilation. RASS scale moderate (-3) is movement or eye opening to voice but no eye contact. Patient Monitoring Once the patient has demonstrated a response to the naloxone, continue to monitor respiratory rate, depth, oxygen saturation and end-tidal CO2 (if available) every 15 minutes x 2, then every 30 minutes x 2, then every 1 hour x 1 after each naloxone dose. Consider transfer to ICU if patient respiratory parameters have not improved after 4 naloxone doses. naloxone (NARCAN) injection 0.2 mg 0.2 mg, Intramuscular, EVERY 2 MIN PRN, opioid reversal, Starting on Thu05/03/24 at 1007, Administer intramuscular if an intravenous route is not available and notify provider when administered. For unintended sedation or respiratory depression if all of the below criteria are met: ~ respiratory rate LESS than or EQUAL to 8. ~SaO2 less than 92% and or/end-tidal CO2 is greater than 50. ~ the patient is receiving an opioid, has unintended sedations assessed as RASS (-3), and is currently not on mechanical ventilation. RASS scale moderate (-3) is movement or eye opening to voice but no eye contact. Patient Monitoring Once the patient has demonstrated a response to the naloxone, continue to monitor respiratory rate, depth, oxygen saturation and end-tidal CO2 (if available) every 15 minutes x 2, then every 30 minutes x 2, then every 1 hour x 1 after each naloxone dose. Consider transfer to ICU if patient respiratory parameters have not improved after 4 naloxone doses. naloxone (NARCAN) injection 0.4 mg 0.4 mg, Intravenous, EVERY 2 MIN PRN, opioid reversal, Starting on Thu05/03/24 at 1007, Administer intravenous route when available and notify provider when administered. For unintended sedation or respiratory depression if all of the below criteria are met: ~ respiratory rate LESS than or EQUAL to 8. ~ SaO2 less than 92% and or/end-tidal CO2 is greater than 50. ~ the patient is receiving an opioid, has unintended sedation assessed as RASS (-4) or (-5) and patient is currently not on mechanical ventilation. RASS scale (-4) is deep sedation with no response to voice but movement or eye opening to physical stimulation. RASS scale (-5) is unarousable. Patient Monitoring Once the patient has demonstrated a response to the naloxone, continue to monitor respiratory rate, depth, oxygen saturation and end-tidal CO2 (if available) every 15 minutes x 2, then every 30 minutes x 2, then every 1 hour x 1 after each naloxone dose. Consider transfer to ICU if patient respiratory parameters have not improved after 4 naloxone doses. naloxone (NARCAN) injection 0.4 mg 0.4 mg, Intramuscular, EVERY 2 MIN PRN, opioid reversal, Starting on Thu05/03/24 at 1007, Administer intramuscular if an intravenous route is not available and notify provider when administered. For unintended sedation or respiratory depression if all of the below criteria are met: ~ respiratory rate LESS than or EQUAL to 8. ~ SaO2 less than 92% and or/end-tidal CO2 is greater than 50. ~ the patient is receiving an opioid, has unintended sedation assessed as RASS (-4) or (-5) and patient is currently not on mechanical ventilation. RASS scale (-4) is deep sedation with no response to voice but movement or eye opening to physical stimulation. RASS scale (-5) is unarousable. Patient Monitoring Once the patient has demonstrated a response to the naloxone, continue to monitor respiratory rate, depth, oxygen saturation and end-tidal CO2 (if available) every 15 minutes x 2, then every 30 minutes x 2, then every 1 hour x 1 after each naloxone dose. Consider transfer to ICU if patient respiratory parameters have not improved after 4 naloxone doses. ondansetron (ZOFRAN ODT) ODT tab 4 mg 4 mg, Oral, EVERY 6 HOURS PRN, nausea, vomiting, Starting on Thu05/02/24 at 2106, This is Step 1 of nausea and vomiting management. If nausea not resolved in 15 minutes, go to Step 2 prochlorperazine (COMPAZINE). With dry hands, peel back foil backing and gently remove tablet. Do not push oral disintegrating tablet through foil backing. Administer immediately on tongue and oral disintegrating tablet dissolves in seconds, then swallow with saliva. Liquid not required. ondansetron (ZOFRAN) injection 4 mg 4 mg, Intravenous, ONCE, Administer over 2-5 Minutes, On Thu05/02/24 at 1440, For 1 dose $Given 05/02/2024 3:03 PM CDT 4 mg ondansetron (ZOFRAN) injection 4 mg 4 mg, Intravenous, EVERY 6 HOURS PRN, nausea, vomiting, Administer over 2-5 Minutes, Starting on Thu05/02/24 at 2106, Give IF patient unable to tolerate oral medication. This is Step 1 of nausea and vomiting management. If nausea not resolved in 15 minutes, go to Step 2 prochlorperazine (COMPAZINE). oxyCODONE (ROXICODONE) tablet 10 mg 10 mg, Oral, EVERY 4 HOURS PRN, severe pain, Starting on Thu05/04/24 at 0754 $Given 05/06/2024 12:48 PM CDT 10 mg $Given 05/05/2024 11:01 PM CDT 10 mg oxyCODONE (ROXICODONE) tablet 5 mg 5 mg, Oral, EVERY 4 HOURS PRN, moderate pain, Starting on Thu05/04/24 at 0754 $Given 05/05/2024 6:02 PM CDT 5 mg $Given 05/04/2024 1:56 PM CDT 5 mg piperacillin-tazobactam (ZOSYN) 2.25 g vial to attach to NS 100 ml bag Routine, 2.25 g, Intravenous, EVERY 6 HOURS, First dose on Thu05/03/24 at 0000, Dose adjusted per renal dosing policy. Estimated CrCl = 20-40 mL/min. Lactated Ringer's solution is not compatible with piperacillin-tazobactam for injection., Indications: Intra-Abdominal Infection, Pyelonephritis $New Bag 05/06/2024 3:00 AM CDT 2.25 g $New Bag 05/05/2024 9:03 PM CDT 2.25 g $New Bag 05/05/2024 2:50 PM CDT 2.25 g piperacillin-tazobactam (ZOSYN) 3.375 g vial to attach to NS 100 mL bag STAT, 3.375 g, Intravenous, ONCE, On Thu05/02/24 at 1615, For 1 dose, Lactated Ringer's solution is not compatible with piperacillin-tazobactam for injection., Indications: Intra-Abdominal Infection $New Bag 05/02/2024 5:11 PM CDT 3.375 g predniSONE (DELTASONE) tablet 10 mg 10 mg, Oral, DAILY, First dose (after last modification) on Thu05/04/24 at 1000 $Given 05/05/2024 10:37 AM CDT 10 mg $Given 05/04/2024 9:56 AM CDT 10 mg predniSONE (DELTASONE) tablet 5 mg 5 mg, Oral or NG Tube, DAILY, First dose on Thu05/03/24 at 0900 $Given 05/03/2024 9:08 AM CDT 5 mg predniSONE (DELTASONE) tablet 5 mg 5 mg, Oral, DAILY, First dose (after last modification) on Thu05/06/24 at 0900 $Given 05/06/2024 8:07 AM CDT 5 mg prochlorperazine (COMPAZINE) injection 5 mg 5 mg, Intravenous, EVERY 6 HOURS PRN, nausea, vomiting, Administer over 1-2 Minutes, Starting on Thu05/02/24 at 2106, IF patient unable to tolerate oral medication. This is Step 2 of nausea and vomiting management. Give if nausea not resolved 15 minutes after giving ondansetron (ZOFRAN). prochlorperazine (COMPAZINE) suppository 12.5 mg 12.5 mg, Rectal, EVERY 12 HOURS PRN, nausea, vomiting, Starting on Thu05/02/24 at 2106, This is Step 2 of nausea and vomiting management. Give if nausea not resolved 15 minutes after giving ondansetron (ZOFRAN). prochlorperazine (COMPAZINE) tablet 5 mg 5 mg, Oral, EVERY 6 HOURS PRN, vomiting, Starting on Thu05/02/24 at 2106, This is Step 2 of nausea and vomiting management. Give if nausea not resolved 15 minutes after giving ondansetron (ZOFRAN). senna-docusate (SENOKOT-S/PERICOLACE) 8.6-50 MG per tablet 1 tablet 1 tablet, Oral, 2 TIMES DAILY PRN, constipation, Starting on Thu05/02/24 at 2104, If no bowel movement in 24 hours, increase to 2 tablets by mouth. IF more than 1 constipation PRN medication is ordered, administer step-tan as indicated, moving to the next step ONLY if prior step ineffective. Step 1: senna-docusate (SENOKOT-S; PERICOLACE) OR bisacodyl (DULCOLAX) EC tablet Step 2: polyethylene glycol (MIRALAX/GLYCOLAX) Step 3: bisacodyl (DULCOLAX) suppository Step 4: enema Hold for loose stools. senna-docusate (SENOKOT-S/PERICOLACE) 8.6-50 MG per tablet 2 tablet 2 tablet, Oral, 2 TIMES DAILY PRN, constipation, Starting on Thu05/02/24 at 2104, IF more than 1 constipation PRN medication is ordered, administer step-tan as indicated, moving to the next step ONLY if prior step ineffective. Step 1: senna-docusate (SENOKOT-S; PERICOLACE) OR bisacodyl (DULCOLAX) EC tablet Step 2: polyethylene glycol (MIRALAX/GLYCOLAX) Step 3: bisacodyl (DULCOLAX) suppository Step 4: enema Hold for loose stools. sodium chloride (PF) 0.9% PF flush 100 mL 100 mL, Intravenous, ONCE, On Thu05/03/24 at 0330, For 1 dose $Given 05/03/2024 3:27 AM CDT 100 mLs sodium chloride (PF) 0.9% PF flush 3 mL 3 mL, Intracatheter, EVERY 8 HOURS, First dose on Thu05/02/24 at 2130, to lock peripheral IV dormant line $Given 05/06/2024 5:17 AM CDT 3 mLs $Given 05/05/2024 9:07 PM CDT 3 mLs $Given 05/05/2024 2:51 PM CDT 3 mLs sodium chloride (PF) 0.9% PF flush 3 mL 3 mL, Intracatheter, EVERY 1 MIN PRN, line flush, other, to ensure patency or to lock dormant line, Starting on Thu05/02/24 at 2104 $Given 05/06/2024 10:20 AM CDT 3 mLs sodium chloride 0.9 % bag 500mL for CT scan flush use Intravenous, 83 mL, ONCE, On Thu05/02/24 at 1435, For 1 dose, This entry is for use by Radiology to intermittently used as a flush in patients receiving a CT scan. $Given 05/02/2024 2:39 PM CDT 83 mLs sodium chloride 0.9 % infusion at 50 mL/hr, Intravenous, CONTINUOUS, Starting on Thu05/03/24 at 1700, Until Thu05/05/24 at 1207 $New Bag 05/04/2024 6:47 PM CDT 50 mL/hr Rate/Dose Change 05/04/2024 9:45 AM CDT 50 mL/h r $New Bag 05/04/2024 3:58 AM CDT 100 mL/hr sodium chloride 0.9% BOLUS 1,000 mL Intravenous, 1,000 mL, ONCE, at 1,000 mL/hr, Administer over 1 Hours, On Thu05/02/24 at 1425, For 1 dose $New Bag 05/02/2024 3:02 PM CDT 1,000 mLs 1000 mL/hr tacrolimus (GENERIC EQUIVALENT) capsule 1 mg 1 mg, Oral, EVERY EVENING, First dose on Thu05/02/24 at 2130, Check if DRUG LEVEL is needed BEFORE administering dose. $Given 05/05/2024 9:03 PM CDT 1 mg $Given 05/04/2024 8:36 PM CDT 1 mg $Given 05/03/2024 10:30 PM CDT 1 mg tacrolimus (GENERIC EQUIVALENT) capsule 2 mg 2 mg, Oral, EVERY MORNING, First dose on Thu05/03/24 at 0900, Check if DRUG LEVEL is needed BEFORE administering dose. $Given 05/06/2024 8:08 AM CDT 2 mg $Given 05/05/2024 2:50 PM CDT 2 mg $Given 05/04/2024 9:33 AM CDT 2 mg zolpidem (AMBIEN) tablet 5 mg 5 mg, Oral, AT BEDTIME PRN, sleep, Starting on Thu05/03/24 at 0957 $Given 05/04/2024 11:00 PM CDT 5 mg $Given 05/03/2024 10:30 PM CDT 5 mg documented in this encounter Active and Recently Administered Medications Times are shown in CDT. Scheduled Medication Order 05/04/2024 05/05/2024 05/06/2024 carvedilol (COREG) tablet 3.125 mg 3.125 mg, Oral, 2 TIMES DAILY WITH MEALS, First dose on Thu05/04/24 at 1800, Tablets can be crushed and given via enteral route. Hold if sbp <110 or hr <60 1825 ($Given - Provider: Shadia Pool RN) 1037 ($Given - Provider: Shadia Pool RN)1802 ($Given - Provider: Shadia Pool RN) 0807 ($Given - Provider: Jayson Longoria, RUIZ)1800 (Canceled Entry - Provider: Orders Generic Provider - Comment: Automatically canceled at discontinue of medication order) cefTRIAXone (ROCEPHIN) 2 g vial to attach to NS 100 ml bag for ADULTS or NS 50 ml bag for PEDS Routine, 2 g, Intravenous, EVERY 24 HOURS, First dose on Thu05/06/24 at 0900, Indications: Urinary Tract Infection 1010 ($New Bag - Provider: Jayson Longoria, RUIZ) heparin ANTICOAGULANT injection 5,000 Units 5,000 Units, Subcutaneous, EVERY 8 HOURS, First dose on Thu05/04/24 at 1800, HOLD heparin IF platelet count falls below 50% baseline or less than 100,000 / ??L and notify provider. Use this product If CrCl less than 30 mL/min. High concentration heparin. Not for line flush or cath care. 1825 (Not Given - Provider: Shadia Pool RN - Reason: Patient/family refused) 0152 (Not Given - Provider: Ludwin Barcenas RN - Reason: Patient/family refused)1047 (Not Given - Provider: Shadia Pool RN - Reason: Patient/family refused)1802 (Not Given - Provider: Shadia Pool RN - Reason: Patient/family refused) 0303 (Not Given - Provider: Rodney Ayala RN - Reason: Patient/family refused)1011 (Not Given - Provider: Jayson Longoria RN - Reason: Patient/family refused)1800 (Canceled Entry - Provider: Orders Generic Provider - Comment: Automatically canceled at discontinue of medication order) hydrocortisone sodium succinate PF (solu-CORTEF) injection 100 mg (CANCELED) 100 mg, Intravenous, EVERY 8 HOURS, Administer over 1-4 Minutes, First dose on Thu05/03/24 at 1700 0148 ($Given - Provider: Ludwin Barcenas RN)0926 (Not Given - Provider: Shadia Pool RN - Reason: Med discontinued by Provider) insulin aspart (NovoLOG) injection (RAPID ACTING) 1-7 Units, Subcutaneous, 3 TIMES DAILY BEFORE MEALS, First dose on Thu05/03/24 at 0730, Correction Scale - MEDIUM INSULIN RESISTANCE DOSING Do Not give Correction Insulin if Pre-Meal BG less than 140. For Pre-Meal BG 140 - 189 give 1 unit. For Pre-Meal BG 190 - 239 give 2 units. For Pre-Meal BG 240 - 289 give 3 units. For Pre-Meal BG 290 - 339 give 4 units. For Pre-Meal BG 340- 389 give 5 units. For Pre-Meal BG 390-439 give 6 units For Pre-Meal BG greater than or equal to 440 give 7 units. To be given with prandial insulin, and based on pre-meal blood glucose. Administering insulin within 5 minutes of the start of the meal is ideal. Administer insulin no more than 30 minutes after the start of the meal, unless directed otherwise by provider. Notify provider if glucose greater than or equal to 350 mg/dL after administration of correction dose. 0944 ($Given - Provider: Shadia Pool RN - Comment: BS 146)1340 (Not Given - Provider: Shadia Pool RN - Reason: Order parameters not met)1837 ($Given - Provider: Shadia Pool RN) 1012 (Not Given - Provider: Shadia Pool RN - Reason: Order parameters not met - Comment: BS 104)1451 (Not Given - Provider: Shadia Pool RN - Reason: Order parameters not met - Comment: BS 91)1810 ($Given - Provider: Shadia Pool RN - Comment: BS 201) 0811 (Not Given - Provider: Jayson Longoria RN - Reason: Contraindicated)1249 (Not Given - Provider: Jayson Longoria RN - Reason: Contraindicated)1700 (Canceled Entry - Provider: Orders Generic Provider - Comment: Automatically canceled at discontinue of medication order) insulin aspart (NovoLOG) injection (RAPID ACTING) 1-5 Units, Subcutaneous, AT BEDTIME, First dose on Thu05/02/24 at 2200, MEDIUM INSULIN RESISTANCE DOSING Do Not give Bedtime Correction Insulin if BG less than 200. For BG 200 - 249 give 1 units. For BG 250 - 299 give 2 units. For BG 300 - 349 give 3 units. For BG 350 -399 give 4 units. For BG greater than or equal to 400 give 5 units. Notify provider if glucose greater than or equal to 350 mg/dL after administration of correction dose. 2300 (Not Given - Provider: Ludwin Barcenas RN - Reason: Order parameters not met - Comment: BG 144) 2157 (Not Given - Provider: Rodney Ayala RN - Reason: Order parameters not met) insulin aspart (NovoLOG) injection (RAPID ACTING) 4 Units, Subcutaneous, 3 TIMES DAILY WITH MEALS, First dose on Thu05/03/24 at 0900 0948 ($Given - Provider: Shadia Pool RN)1349 ($Given - Provider: Shadia Pool RN)1838 ($Given - Provider: Shadia Pool RN) 1045 ($Given - Provider: Shadia Pool RN)1457 ($Given - Provider: Shadia Pool RN)1811 ($Given - Provider: Shadia Pool RN) 1022 (Not Given - Provider: Jayson Longoria RN - Reason: NPO)1249 (Not Given - Provider: Jayson Longoria RN - Reason: NPO)1438 ($Given - Provider: Jayson Longoria RN - Comment: late lunch)1800 (Canceled Entry - Provider: Orders Generic Provider - Comment: Automatically canceled at discontinue of medication order) insulin glargine (LANTUS PEN) injection 10 Units 10 Units, Subcutaneous, EVERY MORNING, First dose on Thu05/03/24 at 0900 0935 ($Given - Provider: Shadia Pool RN) 1045 ($Given - Provider: Shadia Pool RN) 1022 ($Given - Provider: Jayson Longoria RN) levothyroxine (SYNTHROID/LEVOTHROID) tablet 75 mcg 75 mcg, Oral or NG Tube, DAILY, First dose on Thu05/03/24 at 0900, Separate oral administration of iron- or calcium-containing products and levothyroxine by at least 4 hours. 0933 ($Given - Provider: Shadia Pool RN) 1038 ($Given - Provider: Shadia Pool RN) 0808 ($Given - Provider: Jayson Longoria RN) Lidocaine (LIDOCARE) 4 % Patch 1-3 patch 1-3 patch, Transdermal, EVERY 24 HOURS 0800, Administer over 12 Hours, First dose on Thu05/04/24 at 0800, Apply patch(s) to left back, affected areas. To prevent lidocaine toxicity, patient should be patch free for 12 hrs daily. Patches may be cut to smaller size prior to removing release liner. Reminder: Remove previous patch before applying new patch. NEVER APPLY HEAT OVER PATCH which increases absorption and may lead to local anesthetic toxicity. Do not apply over area where liposomal bupivacaine was injected for 96 hours post injection. 0934 ($Patch/Med Applied - Provider: Shadia Pool RN)2037 (Patch/Med Removed - Provider: Ludwin Barcenas RN) 1046 (Not Given - Provider: Shadia Pool RN - Reason: Patient/family refused) 0808 (Not Given - Provider: Jayson Longoira RN - Reason: Patient/family refused)1052 ($Patch/Med Applied - Provider: Jayson Longoria RN - Comment: pt declined at 0800, 1 patch placed)1615 (Due: Patch/Med Removed - Provider: Orders Generic Provider - Comment: Time automatically adjusted from order being discontinued) mycophenolate (GENERIC EQUIVALENT) capsule 500 mg 500 mg, Oral, 2 TIMES DAILY, First dose on Thu05/02/24 at 2130, Do not open capsule for use down feeding tube. Check if DRUG LEVEL is needed BEFORE administering dose. This order specifically allows the use of GENERIC mycophenolate as an equivalent of CELLCEPT capsules. When possible, take 1 to 2 hours apart from any product containing magnesium or aluminum. 0933 ($Given - Provider: Sahdia Pool RN)2036 ($Given - Provider: Ludwin Barcenas RN) 1039 ($Given - Provider: Shadia Pool RN)2103 ($Given - Provider: Rodney Ayala RN) 0809 ($Given - Provider: Jayson Longoria, RUIZ) piperacillin-tazobactam (ZOSYN) 2.25 g vial to attach to NS 100 ml bag (CANCELED) Routine, 2.25 g, Intravenous, EVERY 6 HOURS, First dose on Thu05/03/24 at 0000, Dose adjusted per renal dosing policy. Estimated CrCl = 20-40 mL/min. Lactated Ringer's solution is not compatible with piperacillin-tazobactam for injection., Indications: Intra-Abdominal Infection, Pyelonephritis 0148 ($New Bag - Provider: Ludwin Barcenas RN)0630 ($New Bag - Provider: Ludwin Barcenas RN)1345 ($New Bag - Provider: Shadia Pool RN)1835 ($New Bag - Provider: Shadia Pool RN) 0035 ($New Bag - Provider: Ludwin Barcenas RN)0556 ($New Bag - Provider: Ludwin Barcenas RN)1450 ($New Bag - Provider: Shadia Pool RN)1813 (Canceled Entry - Provider: Shadia Pool RN)2103 ($New Bag - Provider: Rodney Ayala RN) 0300 ($New Bag - Provider: Rodney Ayala RN)0307 (Stopped - Provider: Rodney Ayala RN)0807 (Canceled Entry - Provider: Jayson Longoria, RUIZ) predniSONE (DELTASONE) tablet 10 mg (CANCELED) 10 mg, Oral, DAILY, First dose (after last modification) on Thu05/04/24 at 1000 0956 ($Given - Provider: Shadia Pool RN) 1037 ($Given - Provider: Shadia Pool RN) predniSONE (DELTASONE) tablet 5 mg 5 mg, Oral, DAILY, First dose (after last modification) on Thu05/06/24 at 0900 0807 ($Given - Provider: Jayson Longoria, RUIZ) sodium chloride (PF) 0.9% PF flush 3 mL 3 mL, Intracatheter, EVERY 8 HOURS, First dose on Thu05/02/24 at 2130, to lock peripheral IV dormant line 0531 (Not Given - Provider: Ludwin Barcenas RN - Reason: IV Infusing)1438 (Not Given - Provider: Shadia Pool RN - Reason: IV Infusing)2032 (Not Given - Provider: Ludwin Barcenas RN - Reason: IV Infusing) 0438 (Not Given - Provider: Ludwin Barcenas RN - Reason: IV Infusing)1451 ($Given - Provider: Shadia Pool RN)2107 ($Given - Provider: Rodney Ayala RN) 0517 ($Given - Provider: Rodney Ayala RN)1249 (Canceled Entry - Provider: Jayson Longoria RN) tacrolimus (GENERIC EQUIVALENT) capsule 1 mg(Linked Group 1) 1 mg, Oral, EVERY EVENING, First dose on Thu05/02/24 at 2130, Check if DRUG LEVEL is needed BEFORE administering dose. 2035 ($Given - Provider: Ludwin Barcenas RN) 2103 ($Given - Provider: Rodney Ayala RN) tacrolimus (GENERIC EQUIVALENT) capsule 2 mg(Linked Group 1) 2 mg, Oral, EVERY MORNING, First dose on Thu05/03/24 at 0900, Check if DRUG LEVEL is needed BEFORE administering dose. 0933 ($Given - Provider: Shadia Pool RN) 1450 ($Given - Provider: Shadia Pool RN) 0808 ($Given - Provider: Jayson Longoria, RUIZ) traZODone (DESYREL) tablet 50-100 mg 50-100 mg, Oral, AT BEDTIME, First dose on Thu05/02/24 at 2200, On hold since Thu05/04/2024 at 0753 until manually unheld 0753 (Held by provider - Provider: Rosalee Anglin DO - Reason: Other - Comment: Prolonged Qtc)2200 (Automatically Held - Provider: Rosalee Anglin DO) 2200 (Automatically Held - Provider: Rosalee Anglin DO) 181 (Unheld by provider - Provider: Orders Generic Provider) Continuous Medication Order 05/04/2024 05/05/2024 05/06/2024 sodium chloride 0.9 % infusion (CANCELED) at 50 mL/hr, Intravenous, CONTINUOUS, Starting on Thu05/03/24 at 1700, Until Thu05/05/24 at 1207 0358 ($New Bag - Provider: Fernando Loaiza)0945 (Rate/Dose Change - Provider: Shadia Pool, RN)1847 ($New Bag - Provider: Shadia Pool RN) 1240 (Stopped - Provider: Shadia Pool RN) PRN Medication Order 05/04/2024 05/05/2024 05/06/2024 acetaminophen (TYLENOL) Suppository 650 mg(Linked Group 2) 650 mg, Rectal, EVERY 4 HOURS PRN, mild pain, other, and adjunct with moderate or severe pain or per patient request, Starting on Thu05/02/24 at 2106, Alternate with ibuprofen if ordered. Maximum acetaminophen dose from all sources = 75 mg/kg/day not to exceed 4 grams/day. 2112 (See Alternative - Provider: Rodney Ayala RN) 104 (See Alternative - Provider: Jayson Longoria, RUIZ) acetaminophen (TYLENOL) tablet 650 mg(Linked Group 2) 650 mg, Oral, EVERY 4 HOURS PRN, mild pain, other, and adjunct with moderate or severe pain or per patient request, Starting on Thu05/02/24 at 2106, Alternate with ibuprofen if ordered. Maximum acetaminophen dose from all sources = 75 mg/kg/day not to exceed 4 grams/day. 2112 ($Given - Provider: Rodney Ayala RN) 1047 ($Given - Provider: Jayson Longoria, RN) calcium carbonate (TUMS) chewable tablet 1,000 mg 1,000 mg, Oral, 4 TIMES DAILY PRN, heartburn, Starting on Thu05/02/24 at 2104 cyclobenzaprine (FLEXERIL) tablet 5 mg 5 mg, Oral, EVERY 8 HOURS PRN, muscle spasms, Starting on Thu05/04/24 at 0754 1008 ($Given - Provider: Shadia Pool RN) dextrose 50 % injection 25-50 mL(Linked Group 3) 25-50 mL, Intravenous, EVERY 15 MIN PRN, low blood sugar, Administer over 1-5 Minutes, Starting on Thu05/02/24 at 2104, Use if have IV access, BG less than 70 mg/dL and meet dose criteria below: Dose if conscious and alert (or disorientated) and NPO = 25 mL Dose if unconscious / not alert = 50 mL Give first dose for initial blood glucose less than 70 mg/dL. If blood glucose at 15 minute recheck is less than or equal to 80 mg/dL continue to administer carbohydrate treatment every 15 minutes, as needed, based on blood glucose and assessment parameters until blood glucose level is above 80 mg/dL x 2 consecutive 15 minute checks. glucagon injection 1 mg(Linked Group 3) 1 mg, Subcutaneous, EVERY 15 MIN PRN, low blood sugar, May repeat x 1 only, Starting on Thu05/02/24 at 2104, May give SQ or IM. ONLY use glucagon IF patient has NO IV access AND is UNABLE to swallow AND blood glucose is LESS than or EQUAL to 50 mg/dL. glucose gel 15-30 g(Linked Group 3) 15-30 g, Oral, EVERY 15 MIN PRN, low blood sugar, Starting on Thu05/02/24 at 2104, Give first dose for initial blood glucose less than 70 mg/dL per the dosing instructions below. If blood glucose at 15 minute rechecks is still less than or equal to 80 mg/dL, continue to administer doses per blood glucose parameters every 15 minutes, as needed, until blood glucose level is at or above 80 mg/dL x 2 consecutive 15 minute checks. Dosing Instructions: ~If patient is conscious and able to swallow and NO enteral tube For initial BG 51-69mg/dL OR 15 minute recheck BG 51- 80 mg/dL - give 15 g For BG less than or equal to 50 mg/dL - give 30 g ~ If Enteral tube For initial BG 51-69mg/dL OR 15 minute recheck BG 51- 80 mg/dL - give apple juice 120 mL (4 oz or 15 g of CHO) via enteral tube For BG less than or equal to 50 mg/dL - Give apple juice 240 mL (8 oz or 30 g of CHO) via enteral tube ~Oral gel is preferable for conscious and able to swallow patient. ~IF gel unavailable or patient refuses may provide apple juice per Enteral tube dosing instructions. Document juice on I and O flowsheet. lidocaine (LMX4) cream Topical, EVERY 1 HOUR PRN, pain, with VAD insertion, Starting on Thu05/02/24 at 2104, Apply at least 30 minutes prior to VAD insertion in divided doses as needed for size of site for insertion. MAX Dose: 2.5 g (?? of 5 g tube) Do NOT give if patient has a history of allergy to any local anesthetic or any selene product. Do NOT use both lidocaine intradermal/subcutaneous injection and the lidocaine cream on the same site. lidocaine 1 % 0.1-1 mL 0.1-1 mL, Other, EVERY 1 HOUR PRN, mild pain with VAD insertion, Starting on Thu05/02/24 at 2104, MAX dose 1 mL subcutaneous OR intradermal along the side of the vein in divided doses as needed for VAD insertion. Do NOT give if patient has a history of allergy to any local anesthetic or any selene product. Do NOT use both lidocaine intradermal/subcutaneous injection and the lidocaine cream on the same site. naloxone (NARCAN) injection 0.2 mg(Linked Group 4) 0.2 mg, Intravenous, EVERY 2 MIN PRN, opioid reversal, Starting on Thu05/03/24 at 1007, Administer intravenous route when available and notify provider when administered. For unintended sedation or respiratory depression if all of the below criteria are met: ~ respiratory rate LESS than or EQUAL to 8. ~SaO2 less than 92% and or/end-tidal CO2 is greater than 50. ~ the patient is receiving an opioid, has unintended sedations assessed as RASS (-3), and is currently not on mechanical ventilation. RASS scale moderate (-3) is movement or eye opening to voice but no eye contact. Patient Monitoring Once the patient has demonstrated a response to the naloxone, continue to monitor respiratory rate, depth, oxygen saturation and end-tidal CO2 (if available) every 15 minutes x 2, then every 30 minutes x 2, then every 1 hour x 1 after each naloxone dose. Consider transfer to ICU if patient respiratory parameters have not improved after 4 naloxone doses. naloxone (NARCAN) injection 0.2 mg(Linked Group 4) 0.2 mg, Intramuscular, EVERY 2 MIN PRN, opioid reversal, Starting on Thu05/03/24 at 1007, Administer intramuscular if an intravenous route is not available and notify provider when administered. For unintended sedation or respiratory depression if all of the below criteria are met: ~ respiratory rate LESS than or EQUAL to 8. ~SaO2 less than 92% and or/end-tidal CO2 is greater than 50. ~ the patient is receiving an opioid, has unintended sedations assessed as RASS (-3), and is currently not on mechanical ventilation. RASS scale moderate (-3) is movement or eye opening to voice but no eye contact. Patient Monitoring Once the patient has demonstrated a response to the naloxone, continue to monitor respiratory rate, depth, oxygen saturation and end-tidal CO2 (if available) every 15 minutes x 2, then every 30 minutes x 2, then every 1 hour x 1 after each naloxone dose. Consider transfer to ICU if patient respiratory parameters have not improved after 4 naloxone doses. naloxone (NARCAN) injection 0.4 mg(Linked Group 4) 0.4 mg, Intravenous, EVERY 2 MIN PRN, opioid reversal, Starting on Thu05/03/24 at 1007, Administer intravenous route when available and notify provider when administered. For unintended sedation or respiratory depression if all of the below criteria are met: ~ respiratory rate LESS than or EQUAL to 8. ~ SaO2 less than 92% and or/end-tidal CO2 is greater than 50. ~ the patient is receiving an opioid, has unintended sedation assessed as RASS (-4) or (-5) and patient is currently not on mechanical ventilation. RASS scale (-4) is deep sedation with no response to voice but movement or eye opening to physical stimulation. RASS scale (-5) is unarousable. Patient Monitoring Once the patient has demonstrated a response to the naloxone, continue to monitor respiratory rate, depth, oxygen saturation and end-tidal CO2 (if available) every 15 minutes x 2, then every 30 minutes x 2, then every 1 hour x 1 after each naloxone dose. Consider transfer to ICU if patient respiratory parameters have not improved after 4 naloxone doses. naloxone (NARCAN) injection 0.4 mg(Linked Group 4) 0.4 mg, Intramuscular, EVERY 2 MIN PRN, opioid reversal, Starting on Thu05/03/24 at 1007, Administer intramuscular if an intravenous route is not available and notify provider when administered. For unintended sedation or respiratory depression if all of the below criteria are met: ~ respiratory rate LESS than or EQUAL to 8. ~ SaO2 less than 92% and or/end-tidal CO2 is greater than 50. ~ the patient is receiving an opioid, has unintended sedation assessed as RASS (-4) or (-5) and patient is currently not on mechanical ventilation. RASS scale (-4) is deep sedation with no response to voice but movement or eye opening to physical stimulation. RASS scale (-5) is unarousable. Patient Monitoring Once the patient has demonstrated a response to the naloxone, continue to monitor respiratory rate, depth, oxygen saturation and end-tidal CO2 (if available) every 15 minutes x 2, then every 30 minutes x 2, then every 1 hour x 1 after each naloxone dose. Consider transfer to ICU if patient respiratory parameters have not improved after 4 naloxone doses. ondansetron (ZOFRAN ODT) ODT tab 4 mg(Linked Group 5) 4 mg, Oral, EVERY 6 HOURS PRN, nausea, vomiting, Starting on Thu05/02/24 at 2106, This is Step 1 of nausea and vomiting management. If nausea not resolved in 15 minutes, go to Step 2 prochlorperazine (COMPAZINE). With dry hands, peel back foil backing and gently remove tablet. Do not push oral disintegrating tablet through foil backing. Administer immediately on tongue and oral disintegrating tablet dissolves in seconds, then swallow with saliva. Liquid not required. ondansetron (ZOFRAN) injection 4 mg(Linked Group 5) 4 mg, Intravenous, EVERY 6 HOURS PRN, nausea, vomiting, Administer over 2-5 Minutes, Starting on Thu05/02/24 at 2106, Give IF patient unable to tolerate oral medication. This is Step 1 of nausea and vomiting management. If nausea not resolved in 15 minutes, go to Step 2 prochlorperazine (COMPAZINE). oxyCODONE (ROXICODONE) tablet 10 mg 10 mg, Oral, EVERY 4 HOURS PRN, severe pain, Starting on Thu05/04/24 at 0754 2301 ($Given - Provider: Rodney Ayala RN) 1248 ($Given - Provider: Jayson Longoria RN) oxyCODONE (ROXICODONE) tablet 5 mg 5 mg, Oral, EVERY 4 HOURS PRN, moderate pain, Starting on Thu05/04/24 at 0754 1356 ($Given - Provider: Shadia Pool, RN) 1802 ($Given - Provider: Shadia Pool, RUIZ) prochlorperazine (COMPAZINE) injection 5 mg(Linked Group 6) 5 mg, Intravenous, EVERY 6 HOURS PRN, nausea, vomiting, Administer over 1-2 Minutes, Starting on Thu05/02/24 at 2106, IF patient unable to tolerate oral medication. This is Step 2 of nausea and vomiting management. Give if nausea not resolved 15 minutes after giving ondansetron (ZOFRAN). prochlorperazine (COMPAZINE) suppository 12.5 mg(Linked Group 6) 12.5 mg, Rectal, EVERY 12 HOURS PRN, nausea, vomiting, Starting on Thu05/02/24 at 2106, This is Step 2 of nausea and vomiting management. Give if nausea not resolved 15 minutes after giving ondansetron (ZOFRAN). prochlorperazine (COMPAZINE) tablet 5 mg(Linked Group 6) 5 mg, Oral, EVERY 6 HOURS PRN, vomiting, Starting on Thu05/02/24 at 2106, This is Step 2 of nausea and vomiting management. Give if nausea not resolved 15 minutes after giving ondansetron (ZOFRAN). senna-docusate (SENOKOT-S/PERICOLACE) 8.6-50 MG per tablet 1 tablet(Linked Group 7) 1 tablet, Oral, 2 TIMES DAILY PRN, constipation, Starting on Thu05/02/24 at 2104, If no bowel movement in 24 hours, increase to 2 tablets by mouth. IF more than 1 constipation PRN medication is ordered, administer step-tan as indicated, moving to the next step ONLY if prior step ineffective. Step 1: senna-docusate (SENOKOT-S; PERICOLACE) OR bisacodyl (DULCOLAX) EC tablet Step 2: polyethylene glycol (MIRALAX/GLYCOLAX) Step 3: bisacodyl (DULCOLAX) suppository Step 4: enema Hold for loose stools. senna-docusate (SENOKOT-S/PERICOLACE) 8.6-50 MG per tablet 2 tablet(Linked Group 7) 2 tablet, Oral, 2 TIMES DAILY PRN, constipation, Starting on Thu05/02/24 at 2104, IF more than 1 constipation PRN medication is ordered, administer step-tan as indicated, moving to the next step ONLY if prior step ineffective. Step 1: senna-docusate (SENOKOT-S; PERICOLACE) OR bisacodyl (DULCOLAX) EC tablet Step 2: polyethylene glycol (MIRALAX/GLYCOLAX) Step 3: bisacodyl (DULCOLAX) suppository Step 4: enema Hold for loose stools. sodium chloride (PF) 0.9% PF flush 3 mL 3 mL, Intracatheter, EVERY 1 MIN PRN, line flush, other, to ensure patency or to lock dormant line, Starting on Thu05/02/24 at 2104 0806 (Not Given - Provider: Jayson Longoria RN - Reason: Loss of IV access)1020 ($Given - Provider: Jayson Longroia, RUIZ) zolpidem (AMBIEN) tablet 5 mg 5 mg, Oral, AT BEDTIME PRN, sleep, Starting on Thu05/03/24 at 0957 2300 ($Given - Provider: Ludwin Barcenas RN) Linked Groups Order Group 1: tacrolimus (GENERIC EQUIVALENT) capsule 2 mgJump to med 2 mg, Oral, EVERY MORNING, First dose on Thu05/03/24 at 0900, Check if DRUG LEVEL is needed BEFORE administering dose. And tacrolimus (GENERIC EQUIVALENT) capsule 1 mgJump to med 1 mg, Oral, EVERY EVENING, First dose on Thu05/02/24 at 2130, Check if DRUG LEVEL is needed BEFORE administering dose. Group 2: acetaminophen (TYLENOL) tablet 650 mgJump to med 650 mg, Oral, EVERY 4 HOURS PRN, mild pain, other, and adjunct with moderate or severe pain or per patient request, Starting on Thu05/02/24 at 2106, Alternate with ibuprofen if ordered. Maximum acetaminophen dose from all sources = 75 mg/kg/day not to exceed 4 grams/day. Or acetaminophen (TYLENOL) Suppository 650 mgJump to med 650 mg, Rectal, EVERY 4 HOURS PRN, mild pain, other, and adjunct with moderate or severe pain or per patient request, Starting on Thu05/02/24 at 2106, Alternate with ibuprofen if ordered. Maximum acetaminophen dose from all sources = 75 mg/kg/day not to exceed 4 grams/day. Group 3: glucose gel 15-30 gJump to med 15-30 g, Oral, EVERY 15 MIN PRN, low blood sugar, Starting on Thu05/02/24 at 2104, Give first dose for initial blood glucose less than 70 mg/dL per the dosing instructions below. If blood glucose at 15 minute rechecks is still less than or equal to 80 mg/dL, continue to administer doses per blood glucose parameters every 15 minutes, as needed, until blood glucose level is at or above 80 mg/dL x 2 consecutive 15 minute checks. Dosing Instructions: ~If patient is conscious and able to swallow and NO enteral tube For initial BG 51-69mg/dL OR 15 minute recheck BG 51- 80 mg/dL - give 15 g For BG less than or equal to 50 mg/dL - give 30 g ~ If Enteral tube For initial BG 51-69mg/dL OR 15 minute recheck BG 51- 80 mg/dL - give apple juice 120 mL (4 oz or 15 g of CHO) via enteral tube For BG less than or equal to 50 mg/dL - Give apple juice 240 mL (8 oz or 30 g of CHO) via enteral tube ~Oral gel is preferable for conscious and able to swallow patient. ~IF gel unavailable or patient refuses may provide apple juice per Enteral tube dosing instructions. Document juice on I and O flowsheet. Or dextrose 50 % injection 25-50 mLJump to med 25-50 mL, Intravenous, EVERY 15 MIN PRN, low blood sugar, Administer over 1-5 Minutes, Starting on Thu05/02/24 at 2104, Use if have IV access, BG less than 70 mg/dL and meet dose criteria below: Dose if conscious and alert (or disorientated) and NPO = 25 mL Dose if unconscious / not alert = 50 mL Give first dose for initial blood glucose less than 70 mg/dL. If blood glucose at 15 minute recheck is less than or equal to 80 mg/dL continue to administer carbohydrate treatment every 15 minutes, as needed, based on blood glucose and assessment parameters until blood glucose level is above 80 mg/dL x 2 consecutive 15 minute checks. Or glucagon injection 1 mgJump to med 1 mg, Subcutaneous, EVERY 15 MIN PRN, low blood sugar, May repeat x 1 only, Starting on Thu05/02/24 at 2104, May give SQ or IM. ONLY use glucagon IF patient has NO IV access AND is UNABLE to swallow AND blood glucose is LESS than or EQUAL to 50 mg/dL. Group 4: naloxone (NARCAN) injection 0.2 mgJump to med 0.2 mg, Intravenous, EVERY 2 MIN PRN, opioid reversal, Starting on Thu05/03/24 at 1007, Administer intravenous route when available and notify provider when administered. For unintended sedation or respiratory depression if all of the below criteria are met: ~ respiratory rate LESS than or EQUAL to 8. ~SaO2 less than 92% and or/end-tidal CO2 is greater than 50. ~ the patient is receiving an opioid, has unintended sedations assessed as RASS (-3), and is currently not on mechanical ventilation. RASS scale moderate (-3) is movement or eye opening to voice but no eye contact. Patient Monitoring Once the patient has demonstrated a response to the naloxone, continue to monitor respiratory rate, depth, oxygen saturation and end-tidal CO2 (if available) every 15 minutes x 2, then every 30 minutes x 2, then every 1 hour x 1 after each naloxone dose. Consider transfer to ICU if patient respiratory parameters have not improved after 4 naloxone doses. Or naloxone (NARCAN) injection 0.4 mgJump to med 0.4 mg, Intravenous, EVERY 2 MIN PRN, opioid reversal, Starting on Thu05/03/24 at 1007, Administer intravenous route when available and notify provider when administered. For unintended sedation or respiratory depression if all of the below criteria are met: ~ respiratory rate LESS than or EQUAL to 8. ~ SaO2 less than 92% and or/end-tidal CO2 is greater than 50. ~ the patient is receiving an opioid, has unintended sedation assessed as RASS (-4) or (-5) and patient is currently not on mechanical ventilation. RASS scale (-4) is deep sedation with no response to voice but movement or eye opening to physical stimulation. RASS scale (-5) is unarousable. Patient Monitoring Once the patient has demonstrated a response to the naloxone, continue to monitor respiratory rate, depth, oxygen saturation and end-tidal CO2 (if available) every 15 minutes x 2, then every 30 minutes x 2, then every 1 hour x 1 after each naloxone dose. Consider transfer to ICU if patient respiratory parameters have not improved after 4 naloxone doses. Or naloxone (NARCAN) injection 0.2 mgJump to med 0.2 mg, Intramuscular, EVERY 2 MIN PRN, opioid reversal, Starting on Thu05/03/24 at 1007, Administer intramuscular if an intravenous route is not available and notify provider when administered. For unintended sedation or respiratory depression if all of the below criteria are met: ~ respiratory rate LESS than or EQUAL to 8. ~SaO2 less than 92% and or/end-tidal CO2 is greater than 50. ~ the patient is receiving an opioid, has unintended sedations assessed as RASS (-3), and is currently not on mechanical ventilation. RASS scale moderate (-3) is movement or eye opening to voice but no eye contact. Patient Monitoring Once the patient has demonstrated a response to the naloxone, continue to monitor respiratory rate, depth, oxygen saturation and end-tidal CO2 (if available) every 15 minutes x 2, then every 30 minutes x 2, then every 1 hour x 1 after each naloxone dose. Consider transfer to ICU if patient respiratory parameters have not improved after 4 naloxone doses. Or naloxone (NARCAN) injection 0.4 mgJump to med 0.4 mg, Intramuscular, EVERY 2 MIN PRN, opioid reversal, Starting on Thu05/03/24 at 1007, Administer intramuscular if an intravenous route is not available and notify provider when administered. For unintended sedation or respiratory depression if all of the below criteria are met: ~ respiratory rate LESS than or EQUAL to 8. ~ SaO2 less than 92% and or/end-tidal CO2 is greater than 50. ~ the patient is receiving an opioid, has unintended sedation assessed as RASS (-4) or (-5) and patient is currently not on mechanical ventilation. RASS scale (-4) is deep sedation with no response to voice but movement or eye opening to physical stimulation. RASS scale (-5) is unarousable. Patient Monitoring Once the patient has demonstrated a response to the naloxone, continue to monitor respiratory rate, depth, oxygen saturation and end-tidal CO2 (if available) every 15 minutes x 2, then every 30 minutes x 2, then every 1 hour x 1 after each naloxone dose. Consider transfer to ICU if patient respiratory parameters have not improved after 4 naloxone doses. Group 5: ondansetron (ZOFRAN ODT) ODT tab 4 mgJump to med 4 mg, Oral, EVERY 6 HOURS PRN, nausea, vomiting, Starting on Thu05/02/24 at 2106, This is Step 1 of nausea and vomiting management. If nausea not resolved in 15 minutes, go to Step 2 prochlorperazine (COMPAZINE). With dry hands, peel back foil backing and gently remove tablet. Do not push oral disintegrating tablet through foil backing. Administer immediately on tongue and oral disintegrating tablet dissolves in seconds, then swallow with saliva. Liquid not required. Or ondansetron (ZOFRAN) injection 4 mgJump to med 4 mg, Intravenous, EVERY 6 HOURS PRN, nausea, vomiting, Administer over 2-5 Minutes, Starting on Thu05/02/24 at 2106, Give IF patient unable to tolerate oral medication. This is Step 1 of nausea and vomiting management. If nausea not resolved in 15 minutes, go to Step 2 prochlorperazine (COMPAZINE). Group 6: prochlorperazine (COMPAZINE) injection 5 mgJump to med 5 mg, Intravenous, EVERY 6 HOURS PRN, nausea, vomiting, Administer over 1-2 Minutes, Starting on Thu05/02/24 at 2106, IF patient unable to tolerate oral medication. This is Step 2 of nausea and vomiting management. Give if nausea not resolved 15 minutes after giving ondansetron (ZOFRAN). Or prochlorperazine (COMPAZINE) tablet 5 mgJump to med 5 mg, Oral, EVERY 6 HOURS PRN, vomiting, Starting on Thu05/02/24 at 2106, This is Step 2 of nausea and vomiting management. Give if nausea not resolved 15 minutes after giving ondansetron (ZOFRAN). Or prochlorperazine (COMPAZINE) suppository 12.5 mgJump to med 12.5 mg, Rectal, EVERY 12 HOURS PRN, nausea, vomiting, Starting on Thu05/02/24 at 2106, This is Step 2 of nausea and vomiting management. Give if nausea not resolved 15 minutes after giving ondansetron (ZOFRAN). Group 7: senna-docusate (SENOKOT-S/PERICOLACE) 8.6-50 MG per tablet 1 tabletJump to med 1 tablet, Oral, 2 TIMES DAILY PRN, constipation, Starting on Thu05/02/24 at 2104, If no bowel movement in 24 hours, increase to 2 tablets by mouth. IF more than 1 constipation PRN medication is ordered, administer step-tan as indicated, moving to the next step ONLY if prior step ineffective. Step 1: senna-docusate (SENOKOT-S; PERICOLACE) OR bisacodyl (DULCOLAX) EC tablet Step 2: polyethylene glycol (MIRALAX/GLYCOLAX) Step 3: bisacodyl (DULCOLAX) suppository Step 4: enema Hold for loose stools. Or senna-docusate (SENOKOT-S/PERICOLACE) 8.6-50 MG per tablet 2 tabletJump to med 2 tablet, Oral, 2 TIMES DAILY PRN, constipation, Starting on Thu05/02/24 at 2104, IF more than 1 constipation PRN medication is ordered, administer step-tan as indicated, moving to the next step ONLY if prior step ineffective. Step 1: senna-docusate (SENOKOT-S; PERICOLACE) OR bisacodyl (DULCOLAX) EC tablet Step 2: polyethylene glycol (MIRALAX/GLYCOLAX) Step 3: bisacodyl (DULCOLAX) suppository Step 4: enema Hold for loose stools. documented in this encounter Additional Health Concerns Infection Onset Date Last Indicated Resolved Time MRSA Comment: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 Source: [employer]. 05/14/2016 COVID-19 Comment:Covid recovered 04/19/2024 05/03/2024 05/03/2024 7:19 AM CDT Rule Out COVID-19 05/02/2024 05/02/2024 05/02/2024 2:27 PM CDT documented as of this encounter Care Teams Cyber Instructor Relationship Specialty Start Date End Date No Ref-Primary, Physician PCP - General 05/02/24 05/05/24 Ashli Howell MD [facility] [address] [place] [address] PCP - General Family Medicine 05/06/24 Lissa White PA-C [address] [place] [address] Physician Group Exercise Manager Endocrinology, Diabetes, and Metabolism 01/05/24 Eriberto Romano MD 420 [facility] 195 [place] [address] Colon & Rectal 01/18/24 William Spain MD 717 [facility] 353 [facility] [address] [place] [address] Assigned Nephrology Provider 01/26/24 documented as of this encounter
--- OUTSIDE RECORDS SUMMARY | 2024-06-27 22:34 | XMS_ITS | Encounter Summary ---
Author Organization [place] Address [address] [place] [address] Care Team Providers Care Erecting Crane Operator Name Role Phone Georgette Velez MD Unavailable [phone] Lissa White PA-C Unavailable Eriberto Romano MD Unavailable [phone] William Spain MD Unavailable [phone] No Ref-Primary, Physician Primary Care Provider Ashli Howell MD Primary Care Provider [phone] Aroldo Kimbrough MD Unavailable Georgette Velez MD Unavailable [phone] Encounter Details Date Type Department Care Team (Late st Contact Info) Description 01/13/2024 [facility] [address] [phone] [facility] Social History Tobacco Use Types [...] st Contact Info) Description 07/18/2024 PRE VISIT [facility] and [facility]al Surgery Clinic [address] [phone] Eriberto Romano MD [address] [address] Previsit 07/18/2024 11:00 AM CDT Office Visit [facility] [address] [phone] Kylee Fu MD [address] [place] [address] [address] [place], [place] [address] Eriberto Romano MD [address] [phone] 08/19/2024 1:05 PM KNIFE MACHINE OPERATOR Office Visit [facility] Transplant Clinic [address] [place] [phone] Georgette Velez MD [address] [place] [phone] documented as of this encounter Visit Diagnoses Not on filedocumented in this encounter Additional Health Concerns Infection Onset Date Last Indicated Resolved Time MRSA Comment: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 Source: [employer]. 05/14/2016 COVID-19 Comment:Covid recovered 04/19/2024 05/03/2024 05/03/2024 7:19 AM CDT Rule Out COVID-19 05/02/2024 05/02/2024 05/02/2024 2:27 PM CDT documented as of this encounter Care Teams Erecting Crane Operator Relationship Specialty Start Date End Date No Ref-Primary, Physician PCP - General 05/02/24 05/05/24 Ashli Howell MD [facility] [address] [place] [address] PCP - General Family Medicine 05/06/24 Georgette Velez MD [address] [place] [address] Assigned Nephrology Provider 08/29/23 01/25/24 Lissa White PA-C [address] [place], [place] [address] Physician Industrial Roofer Endocrinology, Diabetes, and Metabolism 01/05/24 Eriberto Romano MD 420 [facility] 195 [place] [address] Colon & Rectal 01/18/24 William Spain MD 717 [facility] 353 [facility] [address] [place], [place] [address] Assigned Nephrology Provider 01/26/24 Aroldo Kimbrough MD [address] [place] [address] Gastroenterology 05/12/24 Georgette Velez MD [address] [place] [address] Nephrology 05/26/24 documented as of this encounter
--- OUTSIDE RECORDS SUMMARY | 2024-06-27 22:34 | XMS_ITS | Encounter Summary ---
Author Organization [place] Address [address] [place] [address]. [place] [address] Care Team Providers Care Client Strategist Name Role Phone Lissa White PA-C Unavailable Eriberto Romano MD Unavailable [phone] William Spain MD Unavailable [phone] Encounter Details Date Type Department Care Team (Late st Contact Info) Description 03/29/2024 Telephone [facility] [address] 4th [place] [address] Clarita De La Rosa Social History Tobacco Use Types Packs/Day Years [...] encounter Miscellaneous Notes * Telephone Encounter - Clarita De La Rosa - 03/29/2024 10:56 AM CDT Endoscopy Scheduling Screen Have you had a positive Covid test in the last 14 days? No What is your communication preference for Instructions and/or Bowel Prep? MyChart What insurance is in the chart? Other: [employer]/Med[employer]are Ordering/Referring Provider: Ed Fu (If ordering provider performs procedure, schedule with ordering provider unless otherwise instructed. ) BMI: Estimated body mass index is 24.22 kg/m?? as calculated from the following: Height as of 01/11/24: 1.6 m (5' 3). Weight as of 01/12/24: 62 kg (136 lb 11.2 oz). Sedation Ordered moderate sedation. If patient BMI > 50 do not schedule in [facility]. If patient BMI > 45 do not schedule at [facility]. Are you taking methadone or Suboxone? No Have you had difficulties, pain, or discomfort during past endoscopy procedures? No Are you taking any prescription medications for pain 3 or more times per week? NO, No sales review clerk required. Do you have a history of malignant hyperthermia? No (Females) Are you currently ? No Have you been diagnosed or told you have pulmonary hypertension? No Do you have an LVAD? No Have you been told you have moderate to severe sleep apnea? No Have you been told you have COPD, asthma, or any other lung disease? No Do you have any heart conditions? No Have you ever had or are you waiting for an organ transplant? Yes. Have you had or are on on the wait list for a heart/lung transplant? Yes, Hospital Only Liver and Kidney Have you had a stroke or transient ischemic attack (TIA aka mini stroke in the last 6 months? No Have you been diagnosed with or been told you have cirrhosis of the liver? Yes (commercial loan administrator required for scheduling unless scheduling in Hospital.) Reason for Transplant Are you currently on dialysis? No Do you need assistance transferring? No BMI: Estimated body mass index is 24.22 kg/m?? as calculated from the following: Height as of 01/11/24: 1.6 m (5' 3). Weight as of 01/12/24: 62 kg (136 lb 11.2 oz). Is patients BMI > 40 and scheduling location [facility]? No Do you take an injectable medication for weight loss or diabetes (excluding insulin)? No Do you take the medication Naltrexone? No Do you take blood thinners? No Prep Are you currently on dialysis or do you have chronic kidney disease? 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 No On a regular basis do you go 3 -5 days between bowel movements? No BMI > 40? No Preferred Pharmacy: [facility]/pharmacy #[id number] - [place], [place] - [address] [facility] [address] [facility] [id number] Final Scheduling Details Procedure scheduled Colonoscopy Surgeon: Ed Fu Date of procedure: 07.14.24 Pre-OP / PAC: No - Not required for this site. Location [facility] - Per exclusion criteria. Sedation Moderate Sedation - Per order. Patient Reminders: You will receive a call from a Nurse to review instructions and health history. This assessment must be completed prior to your procedure. Failure to complete the Nurse assessment may result in the procedure being cancelled. On the day of your procedure, please designate an adult(s) who can drive you home stay with you forthe next 24 hours. The medicines used in the exam will make you sleepy. You will not be able to drive. You cannot take public transportation, ride share services, or non-medical taxi service without a responsible caregiver. Medical transport services are allowed with the requirement that a responsiblecaregiver will receive you at your destination. We require that drivers and caregivers are confirmed prior to your procedure. documented in this encounter Plan of Treatment Upcoming Encounters Date Type Department Care Team ([facility] st Contact Info) Description 07/18/2024 PRE VISIT [facility] [address] [place] [phone] Eriberto Romano MD 420 [facility] 195 [place], [place] [address] Previsit 07/18/2024 11:00 AM CDT Office Visit [facility] [address] [phone] Kylee Fu MD 6 [facility] 2[address] [place], [place] [address] Eriberto Romano MD 420 [facility] 195 [place], [place] [address] 08/19/2024 1:05 PM MERGERS AND ACQUISITIONS MANAGER Office Visit [facility] [address] [place] [phone] Georgette Velez MD 500 [place], [place] [address] documented as of this encounter Visit Diagnoses Not on filedocumented in this encounter Care Teams Client Strategist Relationship Specialty Start Date End Date Lissa White PA-C [address] [place] [address] Physician Farmworker [employer] Endocrinology, Diabetes, and Metabolism 01/05/24 Eriberto Romano MD [address] [address] Colon & Rectal 01/18/24 William Spain MD 717 [facility] 353 [facility] [address] [place] [address] Assigned Nephrology Provider 01/26/24 documented as of this encounter
--- OUTSIDE RECORDS SUMMARY | 2024-06-27 22:34 | XMS_ITS | Encounter Summary ---
Author Organization [place] Address [address] [place] [address]. [place] [address] Care Team Providers Care Roustabout Crew Pusher Name Role Phone Lissa White PA-C Unavailable Eriberto Romano MD Unavailable William Spain MD Unavailable Encounter Details Date Type Department Care Team (Late st Contact Info) Description 04/22/2024 Telephone [facility] Hepatology [facility] [address] [phone] Kylee Fu MD [address] [place] [address] [address] [place] [address] Social History Tobacco Use Types [...] encounter Miscellaneous Notes * Telephone Encounter - Irma Pritchett E - 04/22/2024 9:34 AM CDT [facility]; pt appt has been rescheduled- KB 04.22.24// documented in this encounter Plan of Treatment Upcoming Encounters Date Type Department Care Team (Late st Contact Info) Description 07/18/2024 PRE VISIT [facility] Surgery [facility] [address] [phone] Eriberto Romano MD [address] [place] [address] Previsit 07/18/2024 11:00 AM CDT Office Visit [facility] [address] [phone] Kylee Fu MD [address] [place] [address] [address] [place], [place] [address] Eriberto Romano MD [address] [place] [phone] 08/19/2024 1:05 PM CLINICAL PSYCHOLOGIST LICENSED Office Visit [facility] Trans[facility] [address] [place] [phone] Georgette Velez MD 500 [place], [place] [address] documented as of this encounter Visit Diagnoses Not on filedocumented in this encounter Care Teams Roustabout Crew Pusher Relationship Specialty Start Date End Date Lissa White PA-C [address] [place] [address] Physician Manager Biologics Endocrinology, Diabetes, and Metabolism 01/05/24 Eriberto Romano MD [address] [place] [phone] Colon & Rectal 01/18/24 William Spain MD [address] [place] [address] Assigned Nephrology Provider 01/26/24 documented as of this encounter
--- OUTSIDE RECORDS SUMMARY | 2024-06-27 22:34 | XMS_ITS | Encounter Summary ---
Author Organization [place] Address [address] [place] [address] Care Team Providers Care Visitor Services Representative Name Role Phone Georgette Velez MD Unavailable [phone] Lissa White PA-C Unavailable Eriberto Romano MD Unavailable [phone] William Spain MD Unavailable [phone] No Ref-Primary, Physician Primary Care Provider Ashli Howell MD Primary Care Provider Aroldo Kimbrough MD Unavailable Georgette Velez MD Unavailable [phone] Encounter Details Date Type Department Care Team (Late st Contact Info) Description 01/11/2024 My[facility] Medical Advice [address] [phone] [place], [facility] Social History Tobacco Use Types Packs/Day Years [...] st Contact Info) Description 07/18/[address] [facility] Colon and Rectal Surgery Clinic [address] [phone] Eriberto Romano MD [address] [address] Previsit 07/18/2024 11:00 AM CDT Office Visit [facility] Colon and Rectal Surgery Clinic [address] [phone] Kylee Fu MD [address] [place], [place] [address] [address] [place], [place] [address] Eriberto Romano MD [address] 163025 08/19/2024 1:05 PM ACCOUNTING MACHINE OPERATOR Office Visit [facility] Transplant Clinic [address] [place] [phone] Georgette Velez MD 500 [place], [place] [address] documented as of this encounter Visit Diagnoses Not on filedocumented in this encounter Additional Health Concerns Infection Onset Date Last Indicated Resolved Time MRSA Comment: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 Source: [employer]. 05/14/2016 COVID-19 Comment:Covid recovered 04/19/2024 05/03/2024 05/03/2024 7:19 AM CDT Rule Out COVID-19 05/02/2024 05/02/2024 05/02/2024 2:27 PM CDT documented as of this encounter Care Teams Visitor Services Representative Relationship Specialty Start Date End Date No Ref-Primary, Physician PCP - General 05/02/24 05/05/24 Ashli Howell MD [facility] [address] [place] [address] PCP - General Family Medicine 05/06/24 Georgette Velez MD 500 [place] [address] Assigned Nephrology Provider 08/29/23 01/25/24 Lissa White PA-C 500 [place], [place] [address] Physician Multimedia Educational Specialist Endocrinology, Diabetes, and Metabolism 01/05/24 Eriberto Romano MD 420 [facility] 195 [place] [address] Colon & Rectal 01/18/24 William Spain MD 717 [facility] 353 [facility] [address] [place] [address] Assigned Nephrology Provider 01/26/24 Aroldo Kimbrough MD 9 [place] [address] Gastroenterology 05/12/24 Georgette Velez MD 500 [place] [address] Nephrology 05/26/24 documented as of this encounter
--- OUTSIDE RECORDS SUMMARY | 2024-06-27 22:34 | XMS_ITS | Encounter Summary ---
Author Organization [facility] Address [address] [place] [address]. [place] [address] Care Team Providers Care Marriage And Family Social Worker Name Role Phone Lissa White PA-C Unavailable Eriberto Romano MD Unavailable [phone] William Spain MD Unavailable [phone] Reason for Visit * Reason Onset Date Comments Previsit 04/04/2024 Encounter Details Date Type Department Care Team (Late st Contact Info) Description 04/04/2024 PRE VISIT [facility] [address] 4th [place] [address] Eriberto Romano MD 420 [facility] 195 [place] [address] Previsit Social History Tobacco Use Types Packs/Day Years [...] encounter Miscellaneous Notes * Telephone Encounter - Jacquelyn Crocker - 01/18/2024 10:32 AM CDT Diagnosis, Referred by & from: Perforation Bowel Appt date: 04/04/2024 NOTES STATUS DETAILS OFFICE NOTE from referring provider [facility]: 01/12/24 - SOT OV with Dr. Spain OFFICE NOTE from other specialist Care Everywhere / Received / [facility]: 01/11/24, 05/26/23 - HEP OV with Dr. Fu 08/21/23 - SOT OV with Dr. Rosie [place]: 12/30/23 - GEN SURG OV with Dr. Xie 12/28/23 - UC OV with RUBIA Lester 05/08/23 - PCC OV with Dr. Zabala 04/15/23 - UC OV with RUBIA Lester [place]: 08/20/22 - NEPH OV with Dr. Perdue 02/20/22 - SOT OV with Dr. Nguyễn [facility]: 02/09/17 - URO OV with Dr. Anna DISCHARGE SUMMARY from hospital N/A DISCHARGE REPORT from the ER N/A OPERATIVE REPORT Care Everywhere [facility]: 12/30/16 - OP Note for LIVER TRANSPLANT with Dr. Gudino MEDICATION LIST Internal LABS BIOPSIES/PATHOLOGY RELATED TO DIAGNOSIS [facility]: 12/18/07 - Colon Biopsy (Case: [id number]) DIAGNOSTIC PROCEDURES COLONOSCOPY (most recent all time after 5 years) [facility]: 12/18/07 - Colonoscopy UPPER ENDOSCOPY (EGD) Care Everywhere [facility]: 01/22/17 - EGD 12/15/16 - EGD IMAGING (DISC & REPORT) N/A CT Received [facility]: 12/31/23 - CT Abd/pelvis 12/28/23 - CT Abd/Pelvis 07/30/15 - CT Abd/Pelvis Records Requested 01/18/24 Facility [facility] Outcome * 01/18/24 10:43 AM Faxed request to [facility] for records to be faxed to the clinic. - Jacquelyn * 01/19/24 12:26 PM Records received from [facility] and sent to [facility] to be scanned into the chart. -Jacquelyn documented in this encounter Plan of Treatment Upcoming Encounters Date Type Department Care Team (Late st Contact Info) Description 07/18/2024 PRE VISIT [facility] [address] [phone] Eriberto Romano MD [address] [id number] Previsit 07/18/2024 11:00 AM CDT Office Visit [facility] [address] [phone] Kylee Fu MD [address] [address] Eriberto Romano MD [address] [place] [address] 264675 08/19/2024 1:05 PM APPLICATION SUPPORT DEVELOPER Office Visit [facility] Trans[facility] Clinic [address] [place] [address] [phone] Georgette Velez MD 500 [place], [place] 750385 documented as of this encounter Visit Diagnoses Not on filedocumented in this encounter Care Teams Marriage And Family Social Worker Relationship Specialty Start Date End Date Lissa White PA-C 500 [place], [place] 757625 Physician Corn Chip Maker Endocrinology, Diabetes, and Metabolism 01/05/24 Eriberto Romano MD [address] [place] [address] 540695 Colon & Rectal 01/18/24 William Spain MD [address] [place] [address] Assigned Nephrology Provider 01/26/24 documented as of this encounter
--- OUTSIDE RECORDS SUMMARY | 2024-06-27 22:34 | XMS_ITS | Encounter Summary ---
Author Organization [facility] Address [address] [place] [address] Care Team Providers Care Burr Picker Name Role Phone Lissa White PA-C Unavailable Eriberto Romano MD Unavailable William Spain MD Unavailable [phone] Ref-Primary, Physician Primary Care Provider Ashli Howell MD Primary Care Provider Aroldo Kimbrough MD Unavailable Georgette Velez MD Unavailable [phone] Encounter Details Date Type Department Care Team (Late st Contact Info) Description 03/17/2024 MyC Medical Advice [facility] Transplant Clinic [address] [place] [phone] Miranda Diaz, [facility] Social History Tobacco Use Types Packs/Day [...] st Contact Info) Description 07/18/2024 PRE VISIT [facility] Clinic [address] [phone] Eriberto Romano MD [address] 171215 Previsit 07/18/2024 11:00 AM CDT Office Visit [facility] [address] [phone] Kylee Fu MD [address] [place] [address] 434105 Eriberto Romano MD [address] 27[address] 08/19/2024 1:05 PM SWEDGER Office Visit [facility] [address] [place] [address] [phone] Georgette Velez MD [address] [place] [address] 150635 documented as of this encounter Visit Diagnoses Not on filedocumented in this encounter Additional Health Concerns Infection Onset Date Last Indicated Resolved Time MRSA Comment: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 Source: [employer]. 05/14/2016 COVID-19 Comment:Covid recovered 04/19/2024 05/03/2024 05/03/2024 7:19 AM CDT Rule Out COVID-19 05/02/2024 05/02/2024 05/02/2024 2:27 PM CDT documented as of this encounter Care Teams Burr Picker Relationship Specialty Start Date End Date No Ref-Primary, Physician PCP - General 05/02/24 05/05/24 Ashli Howell MD [facility] [address] [place] [address] PCP - General Family Medicine 05/06/24 Lissa White PA-C 500 [place] [address] Physician Billing Services Manager Endocrinology, Diabetes, and Metabolism 01/05/24 Eriberto Romano MD 420 [facility] 195 [place], [place] 439645 Colon & Rectal 01/18/24 William Spain MD 717 [facility] [place] 353 [facility] 1932 [place] [address] Assigned Nephrology Provider 01/26/24 Aroldo Kimbrough MD 909 [place], [place] [address] Gastroenterology 05/12/24 Georgette eVlez MD 500 [place] [address] Nephrology 05/26/24 documented as of this encounter
--- OUTSIDE RECORDS SUMMARY | 2024-06-27 22:34 | XMS_ITS | Encounter Summary ---
Author Organization [facility] Address [address] [place] [address] Care Team Providers Care Recreational Specialist Name Role Phone Lissa White PA-C Unavailable Eriberto Romano MD Unavailable [phone] William Spain MD Unavailable [phone] No Ref-Primary, Physician Primary Care Provider Ashli Howell MD Primary Care Provider Aroldo Kimbrough MD Unavailable Georgette Velez MD Unavailable [phone] Encounter Details Date Type Department Care Team (Late st Contact Info) Description 05/02/2024 MyC Medical Advice [address] [address] Candice Wilde, RUG SETTER AXMINSTER Social History Tobacco Use Types Packs/Day Years [...] st Contact Info) Description 07/18/2024 PRE VISIT [facility] [address] [place] [phone] Eriberto Romano MD [address] [phone] Previsit 07/18/2024 11:00 AM CDT Office Visit [facility] [address] [place] [phone] Kylee Fu MD [address] [place] [address] [address] [place], [place] 7733[address] Eriberto Romano MD [address] 353835 08/19/2024 1:05 PM GROUP LEADER WAFER POLISHING Office Visit [facility] [address] [place] [address] [phone] Georgette Velez MD [address] [place] [address] documented as of this encounter Visit Diagnoses Not on filedocumented in this encounter Additional Health Concerns Infection Onset Date Last Indicated Resolved Time MRSA Comment: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 Source: [employer]. 05/14/2016 COVID-19 Comment:Covid recovered 04/19/2024 05/03/2024 05/03/2024 7:19 AM CDT Rule Out COVID-19 05/02/2024 05/02/2024 05/02/2024 2:27 PM CDT documented as of this encounter Care Teams Recreational Specialist Relationship Specialty Start Date End Date No Ref-Primary, Physician PCP - General 05/02/24 05/05/24 Ashli Howell MD [facility] [address] [place] [address] PCP - General Family Medicine 05/06/24 Lissa White PA-C 500 [place] [address] Physician Authorization Coordinator Endocrinology, Diabetes, and Metabolism 01/05/24 Eriberto Romano MD 420 [facility] 195 [place] [address] Colon & Rectal 01/18/24 William Spain MD 717 [facility] [place] 353 [facility] 1932 [place] [address] Assigned Nephrology Provider 01/26/24 Aroldo Kimbrough MD 909 [place] [address] Gastroenterology 05/12/24 Georgette Velez MD 500 [place] [address] Nephrology 05/26/24 documented as of this encounter
--- OUTSIDE RECORDS SUMMARY | 2024-06-27 22:34 | XMS_ITS | Encounter Summary ---
Author Organization [facility] Address [address] [place] [address] Care Team Providers Care Physical Education Instructor Name Role Phone Lissa White PA-C Unavailable Eriberto Romano MD Unavailable [phone] William Spain MD Unavailable [phone] No Ref-Primary, Physician Primary Care Provider Ashli Howell MD Primary Care Provider Aroldo Kimbrough MD Unavailable Georgette Velez MD Unavailable [phone] Encounter Details Date Type Department Care Team (Late st Contact Info) Description 04/22/2024 [place] Medical Advice [facility] Hepatology Clinic [address] [phone] Brian Beckford Social History Tobacco Use Types Packs/Day Years [...] Description 07/18/2024 PRE VISIT [facility] Colon and Rectal Surgery Clinic [address] [place] [phone] Eriberto Romano MD [address] 947965 Previsit 07/18/2024 11:00 AM CDT Office Visit [facility] Colon and Rectal Surgery Clinic [address] [place] [phone] Kylee Fu MD [address] [place] [address] [address] [place], [place] 2332[address] Eriberto Romano MD [address] 534[address] 08/19/2024 1:05 PM POWDER OPERATOR Office Visit [facility] Transplant Clinic [address] [place] [phone] Georgette Velez MD [address] [place] [address] 855685 documented as of this encounter Visit Diagnoses Not on filedocumented in this encounter Additional Health Concerns Infection Onset Date Last Indicated Resolved Time MRSA Comment: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 Source: [employer]. 05/14/2016 COVID-19 Comment:Covid recovered 04/19/2024 05/03/2024 05/03/2024 7:19 AM CDT Rule Out COVID-19 05/02/2024 05/02/2024 05/02/2024 2:27 PM CDT documented as of this encounter Care Teams Physical Education Instructor Relationship Specialty Start Date End Date No Ref-Primary, Physician PCP - General 05/02/24 05/05/24 Ashli Howell MD NPI: [id number] [place] [address] [address] [place] [address] PCP - General Family Medicine 05/06/24 Lissa White PA-C 500 [place] [address] Physician School Nurse Endocrinology, Diabetes, and Metabolism 01/05/24 Eriberto Romano MD 420 [facility] [place] [facility] 195 [place] [address] Colon & Rectal 01/18/24 William Spain MD 717 [facility] [place] 353 [facility] 1932 [place] [address] Assigned Nephrology Provider 01/26/24 Aroldo Kimbrough MD 909 [place] [address] Gastroenterology 05/12/24 Georgette Velez MD 500 [place] [address] Nephrology 05/26/24 documented as of this encounter
--- OUTSIDE RECORDS SUMMARY | 2024-06-27 22:34 | XMS_ITS | Encounter Summary ---
Author Organization [facility] Address [address] [place] [address] Care Team Providers Care Silk Weaver Name Role Phone Georgette Velez MD Unavailable [phone] Lissa White PA-C Unavailable Eriberto Romano MD Unavailable [phone] William Spain MD Unavailable [phone] No Ref-Primary, Physician Primary Care Provider Ashli Howell MD Primary Care Provider [phone] Aroldo Kimbroguh MD Unavailable Georgette Velez MD Unavailable [phone] Encounter Details Date Type Department Care Team (Late st Contact Info) Description 01/15/2024 [facility] Endocrinology Clinic [address] [phone] [facility] Social History Tobacco Use Types Packs/Day Years [...] st Contact Info) Description 07/18/2024 PRE VISIT [facility] Colon [facility] Rectal Surgery Clinic [address] [phone] Eriberto Romano MD [address] 094005 Previsit 07/18/2024 11:00 AM CDT Office Visit [facility] Colon [facility]al Surgery Clinic [address] [phone] Kylee Fu MD [address] [place] [address] 2[address] [place], [place] 397945 Eriberto Romano MD [address] 255825 08/19/2024 1:05 PM MANAGER SCHEDULING Office Visit [facility] Transplant Clinic [address] [place] [address] [phone] Georgette Velez MD [address] [place] [address] 379205 documented as of this encounter Visit Diagnoses Not on filedocumented in this encounter Additional Health Concerns Infection Onset Date Last Indicated Resolved Time MRSA Comment: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 Source: [employer]. 05/14/2016 COVID-19 Comment:Covid recovered 04/19/2024 05/03/2024 05/03/2024 7:19 AM CDT Rule Out COVID-19 05/02/2024 05/02/2024 05/02/2024 2:27 PM CDT documented as of this encounter Care Teams Silk Weaver Relationship Specialty Start Date End Date No Ref-Primary, Physician PCP - General 05/02/24 05/05/24 Ashli Howell MD [facility] [address] [place] [address] PCP - General Family Medicine 05/06/24 Georgette Velez MD 500 [place] [address] Assigned Nephrology Provider 08/29/23 01/25/24 Lissa White PA-C 500 [place], [place] 821425 Physician Monument Installer Endocrinology, Diabetes, and Metabolism 01/05/24 Eriberto Romano MD 420 [facility] 195 [place] [address] Colon & Rectal 01/18/24 William Spain MD 717 [facility] [place] 353 [facility] 1932 [place], [place] 588364 Assigned Nephrology Provider 01/26/24 Aroldo Kimbrough MD 909 [place] [address] Gastroenterology 05/12/24 Georgette Velez MD 500 [place] [address] Nephrology 05/26/24 documented as of this encounter
--- OUTSIDE RECORDS SUMMARY | 2024-06-27 22:34 | XMS_ITS | Encounter Summary ---
Author Organization [facility] Address [address] [place] [address]. [place] [address] Care Team Providers Care Water Quality Control Engineer Name Role Phone Lissa White PA-C Unavailable Eriberto Romano MD Unavailable [phone] William Spain MD Unavailable [phone] No Ref-Primary, Physician Primary Care Provider Ashli Howell MD Primary Care Provider Aroldo Kimbrough MD Unavailable Georgette Velez MD Unavailable [phone] Encounter Details Date Type Department Care Team (Late st Contact Info) Description 03/29/2024 MyC Medical Advice [facility] Gastroenterology Clinic [address] 4th [place] [address] Clarita De La Rosa Social [...] st Contact Info) Description 07/18/2024 PRE VISIT [facility] Colon and Rectal Surgery Clinic [address] [place] [phone] Eriberto Romano MD 420 [facility] 195 [place] [address] Previsit 07/18/2024 11:00 AM CDT Office Visit [facility] Colon [facility]al Surgery Clinic [address] [place] [phone] Kylee uF MD [address] [place] [address] [address] [place], [place] [address] Eriberto Romano MD [address] 380595 08/19/2024 1:05 PM PASSENGER LOCOMOTIVE ENGINEER Office Visit [facility] Transplant Clinic [address] [place] [address] [phone] Georgette Velez MD [address] [place] [address] documented as of this encounter Visit Diagnoses Not on filedocumented in this encounter Additional Health Concerns Infection Onset Date Last Indicated Resolved Time MRSA Comment: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 Source: [employer]. 05/14/2016 COVID-19 Comment:Covid recovered 04/19/2024 05/03/2024 05/03/2024 7:19 AM CDT Rule Out COVID-19 05/02/2024 05/02/2024 05/02/2024 2:27 PM CDT documented as of this encounter Care Teams Water Quality Control Engineer Relationship Specialty Start Date End Date No Ref-Primary, Physician PCP - General 05/02/24 05/05/24 Ashli Howell MD [facility] [address] [place] [address] PCP - General Family Medicine 05/06/24 Lissa White PA-C [address] [place] [address] Physician Indian Blanket Weaver Endocrinology, Diabetes, and Metabolism 01/05/24 Eriberto Romano MD 420 [facility] 195 [place] [address] Colon & Rectal 01/18/24 William Spain MD 717 [facility] [place] 353 [facility] 1932 [place] [address] Assigned Nephrology Provider 01/26/24 Aroldo Kimbrough MD 909 [place], [place] [address]65 Gastroenterology 05/12/24 Georgette Velez MD [address] [place] [address] Nephrology 05/26/24 documented as of this encounter
--- OUTSIDE RECORDS SUMMARY | 2024-06-27 22:34 | XMS_ITS | Encounter Summary ---
Author Organization [facility] Address [address] [place] [address] Care Team Providers Care Strand Galvanizer Name Role Phone Lissa White PA-C Unavailable Eriberto Romano MD Unavailable William Spain MD Unavailable [phone] No Ref-Primary, Physician Primary Care Provider Reason for Visit * Reason Onset Date Comments Glucose 05/02/2024 Glucose data for 05/04 appt Encounter Details Date Type Department Care Team (Late st Contact Info) Description 05/02/[address] [phone] Lissa White PA-C [address] [place] [address] Glucose (Glucose data for 05/04 appt ) Social History Tobacco Use Types Packs/Day [...] encounter Miscellaneous Notes * Telephone Encounter - Arelis Humphrey CMA - 05/02/2024 3:19 PM CDT Spoke with patient. Pt is currently being seen at hospital. Pt will send mychart regarding appt after being seen. Arelis Humphrey CMA on 05/02/2024 at 3:21 PM documented in this encounter Plan of Treatment Upcoming Encounters Date Type Department Care Team (Late st Contact Info) Description 07/18/2024 PRE VISIT [facility] Colon and Rectal Surgery Clinic [address] [phone] Eriberto Romano MD [address] [place] [address] 855845 Previsit 07/18/2024 11:00 AM CDT Office Visit [facility] Colon and Rectal Surgery Clinic [address] [phone] Kylee Fu MD [address] [place] [address] Eriberto Romano MD [address] [place] [address] 08/19/2024 1:05 PM CHANGER FIXER Office Visit [facility] Transplant Clinic [address] [place] [address] [phone] Georgette Velez MD [address] [place] [address] 772615 documented as of this encounter Visit Diagnoses Not on filedocumented in this encounter Additional Health Concerns Infection Onset Date Last Indicated Resolved Time MRSA Comment: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 Source: [employer]. 05/14/2016 Rule Out COVID-19 05/02/2024 05/02/2024 05/02/2024 2:27 PM CDT documented as of this encounter Care Teams Strand Galvanizer Relationship Specialty Start Date End Date No Ref-Primary, Physician PCP - General 05/02/24 05/05/24 Lissa White PA-C 500 [place], [place] [phone] Physician Middle School Guidance Counselor Endocrinology, Diabetes, and Metabolism 01/05/24 Eriberto Romano MD 420 [facility] 195 [place] [address] Colon & Rectal 01/18/24 William Spain MD 717 [facility] [place] 353 [facility] 1932 [place], [place] 7[address]64 Assigned Nephrology Provider 01/26/24 documented as of this encounter
--- OUTSIDE RECORDS SUMMARY | 2024-06-27 22:34 | XMS_ITS | Encounter Summary ---
Author Organization [facility] Address [address] [place] [address]. [place] [address] Care Team Providers Care Test Technician Name Role Phone No Ref-Primary, Physician Primary Care Provider Georgette Velez MD Unavailable [phone] Ely Galvez MD Unavailable [phone] Lissa White PA-C Unavailable Eriberto Romano MD Unavailable [phone] William Spain MD Unavailable [phone] No Ref-Primary, Physician Primary Care Provider Ashli Howell MD Primary Care Provider [phone] Aroldo Kimbrough MD Unavailable Georgette Velez MD Unavailable [phone] Reason for Visit * Reason Onset Date Comments Referral 01/04/2024 Perforated Encounter Details Date Type Department Care Team (Late st Contact Info) Description 01/04/2024 Telephone [facility] Colon and Rectal Surgery Clinic [place] [address] [facility] [address] 4th [place] [address] None Referral (Perforated ) Social [...] Viji Gastelum - 01/04/2024 11:58 AM CDT Health Call Center Phone Message May a detailed message be left on voicemail: yes Reason for Call: Appointment Intake Referring Provider Name: Kylee Fu MD in SOT SURGERY Diagnosis and/or Symptoms: perforated sigmoid/diverticulitis. at [facility] being discharged to follow up [facility] Sending per the request to follow up at [facility] Action Taken: Message routed to: [facility] Colorectal Travel Screening: Not Applicable documented in this encounter Plan of Treatment Upcoming Encounters Date Type Department Care Team (Late st Contact Info) Description 07/18/2024 PRE VISIT [facility] Colon and Rectal Surgery Clinic [address] [phone] Eriberto Romano MD [address] [address] Previsit 07/18/2024 11:00 AM CDT Office Visit [facility] Colon [facility] Rectal Surgery Clinic [address] [phone] Kylee Fu MD [address] [place] [address] [address] [place] [address] Eriberto Romano MD [address] [address] 08/19/2024 1:05 PM EXPERIMENTAL AIRCRAFT MECHANIC Office Visit [facility] Transplant Clinic 909 [place] [phone] Georgette Velez MD 500 [place] [address] documented as of this encounter Visit Diagnoses Not on filedocumented in this encounter Additional Health Concerns Infection Onset Date Last Indicated Resolved Time MRSA Comment: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 Source: [employer]. 05/14/2016 COVID-19 Comment:Covid recovered 04/19/2024 05/03/2024 05/03/2024 7:19 AM CDT Rule Out COVID-19 05/02/2024 05/02/2024 05/02/2024 2:27 PM CDT documented as of this encounter Care Teams Test Technician Relationship Specialty Start Date End Date No Ref-Primary, Physician PCP - General 07/20/23 01/04/24 No Ref-Primary, Physician PCP - General 05/02/24 05/05/24 Ashli Howell MD [facility] [address] [place] [address] PCP - General Family Medicine 05/06/24 Georgette Velez MD 500 [place] [address] Assigned Nephrology Provider 08/29/23 01/25/24 Ely Galvez MD [address] [facility] 200 [place] [address] Hospitalist Endocrinology, Diabetes, and Metabolism 09/10/23 01/04/24 Lissa White PA-C 500 [place] [address] Physician Insurance Account Representative Endocrinology, Diabetes, and Metabolism 01/05/24 Eriberto Romano MD 420 [facility] 195 [place], [place] 460325 Colon & Rectal 01/18/24 William Spain MD 717 [facility] [place] 353 [facility] 1932 [place], [place] [address] Assigned Nephrology Provider 01/26/24 Aroldo Kimbrough MD [address] [place] [address] [phone] Gastroenterology 05/12/24 Georgette Velez MD 500 [place], [place] [address] Nephrology 05/26/24 documented as of this encounter
--- OUTSIDE RECORDS SUMMARY | 2024-06-27 22:34 | XMS_ITS | Encounter Summary ---
Author Organization [place] Address [address] [place] [address]. [place] [address] Care Team Providers Care Microwave Oven Assembler Name Role Phone Lissa White PA-C Unavailable Eriberto Romano MD Unavailable [phone] William Spain MD Unavailable [phone] No Ref-Primary, Physician Primary Care Provider Encounter Details Date Type Department Care Team (Latest Contact Info) Description 05/02/2024 Travel Social History Tobacco Use Types Packs/Day [...] [facility] [place] 5[address] [facility] [address] 4th [place] [address] Eriberto Romano MD 420 [facility] 195 [place] [address] Previsit 07/18/2024 11:00 AM CDT Office Visit [facility] [place] 909 [facility] 4th [place] [address] Kylee Fu MD [address] [facility] [place], [place] [address] Eirberto Romano MD 420 [facility] 195 [place], [place] [address] 08/19/2024 1:05 PM BALLER TENDER Office Visit [facility] 9 [place] [address] Georgette Velez MD 500 [place], [place] [address] documented as of this encounter Visit Diagnoses Not on filedocumented in this encounter Additional Health Concerns Infection Onset Date Last Indicated Resolved Time MRSA Comment: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 Source: [employer]. 05/14/2016 Rule Out COVID-19 05/02/2024 05/02/2024 05/02/2024 2:27 PM CDT documented as of this encounter Care Teams Microwave Oven Assembler Relationship Specialty Start Date End Date No Ref-Primary, Physician PCP - General 05/02/24 05/05/24 Lissa White PA-C 500 [place] [address] Physician Roads Supervisor Endocrinology, Diabetes, and Metabolism 01/05/24 Eriberto Romano MD [address] [address] Colon & Rectal 01/18/24 William Spain MD 717 [facility] 353 [facility] 1932 [place] [address] Assigned Nephrology Provider 01/26/24 documented as of this encounter
--- OUTSIDE RECORDS SUMMARY | 2024-06-27 22:34 | XMS_ITS | Encounter Summary ---
Author Organization [place] Address [address] [place] [address] Care Team Providers Care Plug Saw Operator Name Role Phone Lissa White PA-C Unavailable Eriberto Romano MD Unavailable [phone] William Spain MD Unavailable [phone] No Ref-Primary, Physician Primary Care Provider Ashli Howell MD Primary Care Provider Aroldo Kimbrough MD Unavailable Georgette Velez MD Unavailable [phone] Encounter Details Date Type Department Care Team (Late st Contact Info) Description 02/08/2024 MyC Medical Advice [facility] 9 [place] [address] Briseida Parson RN Social History Tobacco Use Types Packs/Day [...] st Contact Info) Description 07/18/2024 PRE VISIT [facility] [address] 4th [place] [phone] Eriberto Romano MD [address] [address] Previsit 07/18/2024 11:00 AM CDT Office Visit [facility] [address] 4th [place] [phone] Kylee Fu MD [address] [place] [address] [address] [place], [place] [address] Eriberto Romano MD [address] 9[address] 08/19/2024 1:05 PM SOFTWARE ANALYST Office Visit [facility] [address] [place] [phone] Georgette Velez MD [address] [place] [address] documented as of this encounter Visit Diagnoses Not on filedocumented in this encounter Additional Health Concerns Infection Onset Date Last Indicated Resolved Time MRSA Comment: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 Source: [employer]. 05/14/2016 COVID-19 Comment:Covid recovered 04/19/2024 05/03/2024 05/03/2024 7:19 AM CDT Rule Out COVID-19 05/02/2024 05/02/2024 05/02/2024 2:27 PM CDT documented as of this encounter Care Teams Plug Saw Operator Relationship Specialty Start Date End Date No Ref-Primary, Physician PCP - General 05/02/24 05/05/24 Ashli Howell MD [facility] [address] [place] [address] PCP - General Family Medicine 05/06/24 Lissa White PA-C 500 [place] [address] Physician Label Press Operator Endocrinology, Diabetes, and Metabolism 01/05/24 Eriberto Romano MD 420 [facility] 195 [place] [address] Colon & Rectal 01/18/24 William Spain MD 717 [facility] 353 [facility] 1932 [place] [address] Assigned Nephrology Provider 01/26/24 Aroldo Kimbrough MD 909 [place] [address] Gastroenterology 05/12/24 Georgette Velez MD 500 [place] [address] Nephrology 05/26/24 documented as of this encounter
--- OUTSIDE RECORDS SUMMARY | 2024-06-27 22:34 | XMS_ITS | Encounter Summary ---
Author Organization [place] Address [address] [place] [address] Care Team Providers Care Quarter Doper Name Role Phone Georgette Velez MD Unavailable [phone] Lissa White PA-C Unavailable Eriberto Romano MD Unavailable [phone] William Spain MD Unavailable [phone] No Ref-Primary, Physician Primary Care Provider Ashli Howell MD Primary Care Provider Aroldo Kimbrough MD Unavailable Georgette Velez MD Unavailable [phone] Encounter Details Date Type Department Care Team (Late st Contact Info) Description 01/20/2024 MyC Medical Advice [facility] [address] [place] [address] Vinicius Vick Social History Tobacco [...] st Contact Info) Description 07/18/2024 PRE VISIT [facility] [address] [phone] Eriberto Romano MD [address] 9937[address] Previsit 07/18/2024 11:00 AM CDT Office Visit [facility] [address] [phone] Kylee Fu MD [address] [place], [place] [address]B [address] [place], [place] [address] Eriberto Roamno MD [address] [address] 08/19/2024 1:05 PM CAREER DEVELOPMENT COORDINATOR Office Visit [facility] [address] [place] [phone] Georgette Velez MD 500 [place], [place] 356[address] documented as of this encounter Visit Diagnoses Not on filedocumented in this encounter Additional Health Concerns Infection Onset Date Last Indicated Resolved Time MRSA Comment: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 Source: [employer]. 05/14/2016 COVID-19 Comment:Covid recovered 04/19/2024 05/03/2024 05/03/2024 7:19 AM CDT Rule Out COVID-19 05/02/2024 05/02/2024 05/02/2024 2:27 PM CDT documented as of this encounter Care Teams Quarter Doper Relationship Specialty Start Date End Date No Ref-Primary, Physician PCP - General 05/02/24 05/05/24 Ashli Howell MD [facility] [address] [place] [address] PCP - General Family Medicine 05/06/24 Georgette Velez MD 500 [place] [address] Assigned Nephrology Provider 08/29/23 01/25/24 Lissa White PA-C 500 [place], [place] [address] Physician Bath Tester Endocrinology, Diabetes, and Metabolism 01/05/24 Eriberto Romano MD 420 [facility] 195 [place] [address] Colon & Rectal 01/18/24 William Spain MD 717 [facility] 353 [facility] 1932 [place] [address] Assigned Nephrology Provider 01/26/24 Aroldo Kimbrough MD 9 [place] [address] Gastroenterology 05/12/24 Georgette Velez MD 500 [place] [address] Nephrology 05/26/24 documented as of this encounter
--- OUTSIDE RECORDS SUMMARY | 2024-06-27 22:35 | XMS_ITS | Encounter Summary ---
Author Organization [place] Address [address] [place] [address]. [place] [address] Care Team Providers Care Chainstitch Elastic Attacher Name Role Phone No Ref-Primary, Physician Primary Care Provider Georgette Velez MD Unavailable [phone] Ely Galvez MD Unavailable [phone] Lissa White PA-C Unavailable Eriberto Romano MD Unavailable William Spain MD Unavailable [phone] No Ref-Primary, Physician Primary Care Provider Ashli Howell MD Primary Care Provider + [phone] Aroldo Kimbrough MD Unavailable Georgette Velez MD Unavailable [phone] Encounter Details Date Type Department Care Team (Late st Contact Info) Description 01/01/2024 [facility] Medical [facility] End[facility]ology Clinic [address] 3rd [place] [address] Arelis Humphrey CMA Social History Tobacco [...] Upcoming Encounters Date Type Department Care Team ([facility] st Contact Info) Description 07/18/2024 PRE VISIT [facility] Surgery Clinic [address] [phone] Eriberto Romano MD [address] [place] [address] Previsit 07/18/2024 11:00 AM CDT Office Visit [facility] [address] [phone] Kylee Fu MD [address] [place], [place] [address] 2A [place], [place] [address] Eriberto Romano MD [address] [place] [address] 08/19/2024 1:05 PM EXECUTIVE SOUS CHEF Office Visit [facility] Transplant Clinic [address] [place] [phone] Georgette Velez MD [address] [place] [address] documented as of this encounter Visit Diagnoses Not on filedocumented in this encounter Additional Health Concerns Infection Onset Date Last Indicated Resolved Time MRSA Comment: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 Source: [employer]. 05/14/2016 COVID-19 Comment:Covid recovered 04/19/2024 05/03/2024 05/03/2024 7:19 AM CDT Rule Out COVID-19 05/02/2024 05/02/2024 05/02/2024 2:27 PM CDT documented as of this encounter Care Teams Chainstitch Elastic Attacher Relationship Specialty Start Date End Date No Ref-Primary, Physician PCP - General 07/20/23 01/04/24 No Ref-Primary, Physician PCP - General 05/02/24 05/05/24 Ashli Howell MD [facility] [address] [place] [address] PCP - General Family Medicine 05/06/24 eGorgette Velez MD 500 [place], [place] [address] Assigned Nephrology Provider 08/29/23 01/25/24 Ely Galvez MD [address] [facility] 200 [place], [place] [address] Hospitalist Endocrinology, Diabetes, and Metabolism 09/10/23 01/04/24 Lissa White PA-C 500 [place], [place] [address]65 Physician Grassroots Organizer Endocrinology, Diabetes, and Metabolism 01/05/24 Eriberto Romano MD 420 [facility] 195 [place], [place] [address] Colon & Rectal 01/18/24 William Spain MD 717 [facility] 353 [facility] 1932 [place], [place] [address] Assigned Nephrology Provider 01/26/24 Aroldo Kimbrough MD 909 [place], [place] [address] Gastroenterology 05/12/24 Georgette Velez MD 500 [place], [place] 2[address] Nephrology 05/26/24 documented as of this encounter
--- OUTSIDE RECORDS SUMMARY | 2024-06-27 22:35 | XMS_ITS | Encounter Summary ---
Author Organization [place] Address [address] [place] [address]. [place] [address] Care Team Providers Care Backfiller Name Role Phone No Ref-Primary, Physician Primary Care Provider Georgette Velez MD Unavailable [phone] Ely Galvez MD Unavailable [phone] Lissa White PA-C Unavailable Eriberto Romano MD Unavailable William Spain MD Unavailable [phone] No Ref-Primary, Physician Primary Care Provider Ashli Howell MD Primary Care Provider + [phone] Aroldo Kimbrough MD Unavailable Georgette Velez MD Unavailable [phone] Encounter Details Date Type Department Care Team (Late st Contact Info) Description 07/02/2023 MyC Medical Advice [facility] Transplant Clinic 9 [place] [address] Miranda Diaz, [facility] Social History Tobacco Use Types [...] Encounters Date Type Department Care Team ([facility] st Contact Info) Description 07/18/2024 PRE VISIT [facility] [address] [phone] Eriberto Romano MD [address] [address] Previsit 07/18/2024 11:00 AM CDT Office Visit [facility] [address] [phone] Kylee Fu MD [address] [place] [address] [address] [place] [address] Eriberto Romano MD [address] [address]33[address] 08/19/2024 1:05 PM RESEARCH ASSOCIATE MOLECULAR BIOLOGY Office Visit [facility] Trans[facility] Clinic [address] [place] [phone] Georgette Velez MD [address] [place] [address] documented as of this encounter Visit Diagnoses Not on filedocumented in this encounter Additional Health Concerns Infection Onset Date Last Indicated Resolved Time MRSA Comment: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 Source: [employer]. 05/14/2016 COVID-19 Comment:Covid recovered 04/19/2024 05/03/2024 05/03/2024 7:19 AM CDT Rule Out COVID-19 05/02/2024 05/02/2024 05/02/2024 2:27 PM CDT documented as of this encounter Care Teams Backfiller Relationship Specialty Start Date End Date No Ref-Primary, Physician PCP - General 07/20/23 01/04/24 No Ref-Primary, Physician PCP - General 05/02/24 05/05/24 Ashli Howell MD [facility] [address] [place] [address] PCP - General Family Medicine 05/06/24 Georgette Velez MD 500 [place], [place] [phone] Assigned Nephrology Provider 08/29/23 01/25/24 Ely Galvez MD 303 E [facility] 200 [place] [address] Hospitalist Endocrinology, Diabetes, and Metabolism 09/10/23 01/04/24 Lissa White PA-C 500 [place], [place] [phone] Physician Manager Commercial Sales Endocrinology, Diabetes, and Metabolism 01/05/24 Eriberto Romano MD 420 [facility] 195 [place], [place] [address] Colon & Rectal 01/18/24 William Spain MD 717 [facility] 353 [facility] 1932 [place], [place] [address] Assigned Nephrology Provider 01/26/24 Aroldo Kimbrough MD 909 [place], [place] [address] Gastroenterology 05/12/24 Georgette Velez MD 500 [place] [address] Nephrology 05/26/24 documented as of this encounter
--- OUTSIDE RECORDS SUMMARY | 2024-06-27 22:35 | XMS_ITS | Clinical Summary ---
Author Organization [facility] Address [address] [address] Care Team Providers Care Rounding Machine Operator Name Role Phone Unavailable Primary Care Provider Unavailabl e Source Comments You are receiving this document as you are listed as the primary care provider,follow-up provider, or the patient has been referred to you for consultation.This is in compliance with the Medicare andOhio[facility], Cancer Centercaid EHR Incentive Program,which states Providers who transition their patient to another setting of careor provider of care or refers their patient to another provider of care shouldprovide summary care record for each transition of care or referral. [facility] Allergies No known active allergies Medications Medication Sig Dispensed Refills Start Date End Date Status magnesium 250 MGIndications:GUIDO MARTINEZ Aug 28, 2015 5:22 AM Received from: [facility] GIOVANNI POLANCO Nov 15, 2015 5:41 PM Take 250 mg by mouth. 07/02/2015 Active ranitidine (ZANTAC) 300 MG tablet Take 300 mg by mouth nightly. 11/15/2015 Active zinc sulfate (ZINCATE) 220 MG capsuleIndications:ELVIRA DO ThuMar 07, 2016 11:13 AM Received from: External Pharmacy Indications: PN: ELVIRA PENNY ThuMar 07, 2016 11:13 AM Received from: External Pharmacy 12/21/2015 Active cholecalciferol (VITAMIN D3) 10239 UNITS capsule Take 50,000 Units by mouth [...] renal insufficiency 11/15/2015 Diarrhea 11/15/2015 Thrombocytopenia 11/08/2015 Overview (05/09/2016): Chronic 30s-40s. Paroxysmal SVT (supraventricular tachycardia) Tachycardia 11/06/2015 Ventricular tachycardia 11/06/2015 Cirrhosis of liver with ascites 08/28/2015 Ascites 08/23/2015 Chronic hepatitis C 04/18/2015 Hypothyroidism 04/18/2015 Resolved Problems Problem Noted Date Diagnosed Date Resolved Date CAREPLAN: [facility] CASE [facility]NAGEMENT 12/25/2015 08/06/2016 Overview (08/06/2016): Background: Engaged in Complex Case Management: Greer uCi RN [phone] Goals/Recommendations: Health jail, active care coordination 11/27/2015 12/22/2017 Overview (05/09/2016): Substitute Crossing Guard: Lissa Meyer RN Substitute Crossing Guard, [facility]/Peds - [phone] Care coordination focus: Multiple Specialists Living situation: Lives with ex- Important notes: See care plan under Chart Review > Misc Reports > AMB [facility] CARE PLAN REPORT Colitis due to Clostridium [...] Comments Blood Pressure 109/66 10/07/2016 1:30 PM MARKETING SALES MANAGER Pulse 85 10/07/2016 1:30 PM MARKETING SALES MANAGER Temperature 36.8 ??C (98.3 ??F) 10/07/2016 11:[address] Respiratory Rate 18 10/07/2016 11:14 AM MARKETING SALES MANAGER Oxygen Saturation 94% 10/07/2016 1:30 PM MARKETING SALES MANAGER Inhaled Oxygen Concentration - - Weight 69.9 kg (154 lb) 10/07/2016 9:10 AM MARKETING SALES MANAGER Height 162.6 cm (5' 4) 07/31/2016 10:47 [...] 2) 2002 HepB (1) 2012 COVID-19 Vaccine ( - 2023- season) 2024 Influenza (#1) 2024 RSV (1 - 1-dose 75+ series) 2027 Hep C Screening (Preventive Services) Completed 10/07/2016, [...]
--- OUTSIDE RECORDS SUMMARY | 2024-06-27 22:35 | XMS_ITS ---
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 Marked as Active Follow-up on 05/26/2023 Coordinators Name Role Phone Fax Email Daniela Majano RN Liver Coordinator N/A N/A [email or web address] Scarlet Cruz RN Kidney Coordinator N/A N/A Transplanted Elsewhere: [facility] ([place], [place]) - CACS Coordinator: Phone: Fax: Infection History Noted Survival Infection Treatment Organism Resolved 01/24/2024 7 years Recurrent UTI (u rinary tract infection) Care Team Name Role Phone Fax Email Daniela Majano RN Liver Coordinator N/A N/A [email or web address] wally Cruz RN Kidney Coordinator N/A N/A [email or web address] wally Fu MD Barrel Polisher [phone] [email or web address] Post-Transplant Pre-Transplant Transplanted: 12/30/2016
--- OUTSIDE RECORDS SUMMARY | 2024-06-27 22:35 | XMS_ITS | Encounter Summary ---
Author Organization [place] Address [address] [place] [address] Care Team Providers Care Lead Level Designer Name Role Phone No Ref-Primary, Physician Primary Care Provider Georgette Velez MD Unavailable [phone] Ely Galvez MD Unavailable [phone] Lissa White PA-C Unavailable Eriberto Romano MD Unavailable William Spain MD Unavailable [phone] No Ref-Primary, Physician Primary Care Provider Ashli Howell MD Primary Care Provider + [phone] Aroldo Kimbrough MD Unavailable Georgette Velez MD Unavailable [phone] Encounter Details Date Type Department Care Team (Late st Contact Info) Description 07/10/2023 MyC Medical Advice [address] [phone] Lola Mane, [facility] Social History Tobacco Use Types Packs/Day [...] st Contact Info) Description 07/18/2024 PRE VISIT [facility] Surgery Clinic [address] [phone] Eriberto Romano MD [address] [place] [address]125 Previsit 07/18/2024 11:00 AM CDT Office Visit [facility] Clinic [address] [phone] Kylee Fu MD [address] [place] [address] [address] [place], [place] [address] Eriberto Romano MD [address] [place] [address] 08/19/2024 1:05 PM BOX ICER Office Visit [facility] Transplant Clinic [address] [place] [phone] Georgette Velez MD 500 [place], [place] [address] documented as of this encounter Visit Diagnoses Not on filedocumented in this encounter Additional Health Concerns Infection Onset Date Last Indicated Resolved Time MRSA Comment: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 Source: [employer]. 05/14/2016 COVID-19 Comment:Covid recovered 04/19/2024 05/03/2024 05/03/2024 7:19 AM CDT Rule Out COVID-19 05/02/2024 05/02/2024 05/02/2024 2:27 PM CDT documented as of this encounter Care Teams Lead Level Designer Relationship Specialty Start Date End Date No Ref-Primary, Physician PCP - General 07/20/23 01/04/24 No Ref-Primary, Physician PCP - General 05/02/24 05/05/24 Ashli Howell MD [facility] [address] [place] [address] PCP - General Family Medicine 05/06/24 Georgette Velez MD 500 [place], [place] [phone] Assigned Nephrology Provider 08/29/23 01/25/24 Ely Galvez MD [address] [facility] 200 [place], [place] [address] Hospitalist Endocrinology, Diabetes, and Metabolism 09/10/23 01/04/24 Lissa White PA-C 500 [place], [place] [phone] Physician Roving Hand Endocrinology, Diabetes, and Metabolism 01/05/24 Eriberto Romano MD 420 [facility] 195 [place], [place] [phone] Colon & Rectal 01/18/24 William Spain MD 717 [facility] 353 [facility] 1932 [place], [place] [address] Assigned Nephrology Provider 01/26/24 Aroldo Kimbrough MD 909 [place] [address] Gastroenterology 05/12/24 Georgette Velez MD 500 [place] [address] Nephrology 05/26/24 documented as of this encounter
--- OUTSIDE RECORDS SUMMARY | 2024-06-27 22:35 | XMS_ITS | Encounter Summary ---
Author Organization [facility] Address [address] [place] [address]. [place] [address] Care Team Providers Care Metal Turner Name Role Phone No Ref-Primary, Physician Primary Care Provider Georgette Velez MD Unavailable [phone] Ely Galvez MD Unavailable [phone] Lissa White PA-C Unavailable Eriberto Romano MD Unavailable William Spain MD Unavailable [phone] No Ref-Primary, Physician Primary Care Provider Ashli Howell MD Primary Care Provider + [phone] Aroldo Kimbrough MD Unavailable Georgette Velez MD Unavailable [phone] Encounter Details Date Type Department Care Team (Late st Contact Info) Description 09/16/2023 MyC Medical Advice [facility] [address] [place] [address] Briseida Parson, RN Social History [...] [facility] [address] [phone] Eriberto Romano MD [address] [place] [address] 899385 Previsit 07/18/2024 11:00 AM CDT Office Visit [facility] [address] [phone] Kylee Fu MD [address] [place] [address] 243705 Eriberto Romano MD [address] [place] [address] [phone] 08/19/2024 1:05 PM CORN PICKER Office Visit [facility] [address] [place] [address] [phone] Georgette Velez MD [address] [place] [address] 260065 documented as of this encounter Visit Diagnoses Not on filedocumented in this encounter Additional Health Concerns Infection Onset Date Last Indicated Resolved Time MRSA Comment: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 Source: [employer]. 05/14/2016 COVID-19 Comment:Covid recovered 04/19/2024 05/03/2024 05/03/2024 7:19 AM CDT Rule Out COVID-19 05/02/2024 05/02/2024 05/02/2024 2:27 PM CDT documented as of this encounter Care Teams Metal Turner Relationship Specialty Start Date End Date No Ref-Primary, Physician PCP - General 07/20/23 01/04/24 No Ref-Primary, Physician PCP - General 05/02/24 05/05/24 Ashli [place]ell MD [facility] [address] [place] [address] PCP - General Family Medicine 05/06/24 Georgette Velez MD 500 [place], [place] 778745 Assigned Nephrology Provider 08/29/23 01/25/24 Ely Galvez MD [address] [facility] 200 [place], [place] [address] Hospitalist Endocrinology, Diabetes, and Metabolism 09/10/23 01/04/24 Lissa White PA-C 500 [place], [place] 296825 Physician Pipe And Tank Fabricator Endocrinology, Diabetes, and Metabolism 01/05/24 Eriberto Romano MD 420 [facility] 195 [place], [place] [address] Colon & Rectal 01/18/24 William Spain MD 717 [facility] 353 [facility] 1932 [place], [place] [address] Assigned Nephrology Provider 01/26/24 Aroldo Kimbrough MD 909 [place], [place] 684505 Gastroenterology 05/12/24 Georgette Velez MD 500 [place] [address] Nephrology 05/26/24 documented as of this encounter
--- OUTSIDE RECORDS SUMMARY | 2024-06-27 22:35 | XMS_ITS | Encounter Summary ---
Author Organization [facility] Address [address] [place] [address] Care Team Providers Care Military Cook Name Role Phone No Ref-Primary, Physician Primary Care Provider Georgette Velez MD Unavailable [phone] Ely Galvez MD Unavailable [phone] Lissa White PA-C Unavailable Eriberto Romano MD Unavailable William Spain MD Unavailable No Ref-Primary, Physician Primary Care Provider Ashli Howell MD Primary Care Provider Aroldo Kimbrough MD Unavailable Georgette Velez MD Unavailable [phone] Reason for Visit * Reason Onset Date Comments Appointment 06/04/2023 Encounter Details Date Type Department Care Team (Late st Contact Info) Description 06/04/[address] [facility] [address] [place] [address] Kylee Fu MD [address] [place] [address] [phone] Appointment Social History Tobacco Use Types Packs/Day [...] encounter Miscellaneous Notes * Telephone Encounter - Malaika Goldberg - 06/04/2023 10:10 AM CDT [facility] Call Center Phone Message May a [...] Upcoming Encounters Date Type Department Care Team ([facility] Contact Info) Description 07/18/[address] [facility] [address] [phone] Eriberto Romano MD [address] [place] [address] Previsit 07/18/2024 11:00 AM CDT Office Visit [facility] [address] [phone] Kylee Fu MD [address] [place], [place] [address] [address] [place] [address] Eriberto Romano MD [address] [place] [address] [place] [address] 08/19/2024 1:05 PM FIBERGLASS LAMINATOR Office Visit 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 Source: [employer]. 05/14/2016 COVID-19 Comment:Covid recovered 04/19/2024 05/03/2024 05/03/2024 7:19 AM CDT Rule Out COVID-19 05/02/2024 05/02/2024 05/02/2024 2:27 PM CDT documented as of this encounter Care Teams Military Cook Relationship Specialty Start Date End Date No Ref-Primary, Physician PCP - General 07/20/23 01/04/24 No Ref-Primary, Physician PCP - General 05/02/24 05/05/24 Ashli Howell MD [facility] [address] [place] [address] PCP - General Family Medicine 05/06/24 Georgette Velez MD 500 [place] [address] Assigned Nephrology Provider 08/29/23 01/25/24 Ely Galvez MD [address] [facility] 200 [place] [address] Hospitalist Endocrinology, Diabetes, and Metabolism 09/10/23 01/04/24 Lissa White PA-C 500 [place] [address] Physician Supervisor Counseling And Guidance Endocrinology, Diabetes, and Metabolism 01/05/24 Eriberto Romano MD 420 [facility] 195 [place] [address] Colon & Rectal 01/18/24 William Spain MD 717 [facility] 353 [facility] 1932 [place] [address] Assigned Nephrology Provider 01/26/24 Aroldo Kimbrough MD 909 [place], [place] 7[address] Gastroenterology 05/12/24 Georgette Velez MD 500 [place] [address] Nephrology 05/26/24 documented as of this encounter
--- OUTSIDE RECORDS SUMMARY | 2024-06-27 22:35 | XMS_ITS | Encounter Summary ---
Author Organization [facility] Address [address] [place] [address]. [place] [address] Care Team Providers Care Manager Order Name Role Phone No Ref-Primary, Physician Primary Care Provider Georgette Velez MD Unavailable [phone] Ely Galvez MD Unavailable [phone] Lissa White PA-C Unavailable Eriberto Romano MD Unavailable William Spain MD Unavailable [phone] No Ref-Primary, Physician Primary Care Provider Ashli Howell MD Primary Care Provider + [phone] Aroldo Kimbrough MD Unavailable Georgette Velez MD Unavailable [phone] Encounter Details Date Type Department Care Team (Late st Contact Info) Description 06/23/2023 MyC Medical Advice [facility] 9 [place] [address] Briseida Parson, RN Social History [...] [facility] [address] [phone] Eriberto Romano MD [address] [place] [address] 922605 Previsit 07/18/2024 11:00 AM CDT Office Visit [facility] [address] [phone] Kylee Fu MD [address] [place], [place] [address] [address] [place] [address] Eriberto Romano MD [address] [place] [address] 08/19/2024 1:05 PM CRAP GAME BOX PERSON Office Visit [facility] [address] [place] [phone] Georgette Velez MD [address] [place] [address] 680965 documented as of this encounter Visit Diagnoses Not on filedocumented in this encounter Additional Health Concerns Infection Onset Date Last Indicated Resolved Time MRSA Comment: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 Source: [employer]. 05/14/2016 COVID-19 Comment:Covid recovered 04/19/2024 05/03/2024 05/03/2024 7:19 AM CDT Rule Out COVID-19 05/02/2024 05/02/2024 05/02/2024 2:27 PM CDT documented as of this encounter Care Teams Manager Order Relationship Specialty Start Date End Date No Ref-Primary, Physician PCP - General 07/20/23 01/04/24 No Ref-Primary, Physician PCP - General 05/02/24 05/05/24 Ashli Howell MD [facility] [address] [place] [address] PCP - General Family Medicine 05/06/24 Georgette Velez MD 500 [place], [place] 3965[address] Assigned Nephrology Provider 08/29/23 01/25/24 Ely Galvez MD [address] [facility] 200 [place] [address] Hospitalist Endocrinology, Diabetes, and Metabolism 09/10/23 01/04/24 Lissa White PA-C 500 [place] [address] Physician Plycor Operator Endocrinology, Diabetes, and Metabolism 01/05/24 Eriberto Romano MD 420 [facility] 195 [place], [place] [address] Colon & Rectal 01/18/24 William Spain MD 717 [facility] 353 [facility] 1932 [place] [address] Assigned Nephrology Provider 01/26/24 Aroldo Kimbrough MD [address] [place] [address] Gastroenterology 05/12/24 Georgette Velez MD 500 [place] [address] Nephrology 05/26/24 documented as of this encounter
--- OUTSIDE RECORDS SUMMARY | 2024-06-27 22:35 | XMS_ITS | Encounter Summary ---
Author Organization [facility] Address [address] [place] [address]. [place] [address] Care Team Providers Care Ramp Supervisor Name Role Phone No Ref-Primary, Physician Primary Care Provider Georgette Velez MD Unavailable [phone] Ely Galvez MD Unavailable [phone] Lissa White PA-C Unavailable Eriberto Romano MD Unavailable William Spain MD Unavailable [phone] No Ref-Primary, Physician Primary Care Provider Ashli Howell MD Primary Care Provider + [phone] Aroldo Kimbrough MD Unavailable Georgette Velez MD Unavailable [phone] Encounter Details Date Type Department Care Team (Late st Contact Info) Description 08/21/2023 [facility] [place] [facility] [address] [place] [address] Scarlet Cruz RN Social History [...] Upcoming Encounters Date Type Department Care Team ([facility] st Contact Info) Description 07/18/2024 PRE VISIT [facility] [address] [phone] Eriberto Romano MD [address] [place] [address] [phone] Previsit 07/18/2024 11:00 AM CDT Office Visit [facility] [address] [phone] Kylee Fu MD [address] [place], [place] [address] 2[address] [place], [place] [address] Eriberto Romano MD [address] [place] [address] [phone] 08/19/2024 1:05 PM DERMATOLOGY PHYSICIAN ASSISTANT Office Visit [facility] [address] [place] [address] [phone] Georgette Velez MD [address] [place] [address] [phone] documented as of this encounter Visit Diagnoses Not on filedocumented in this encounter Additional Health Concerns Infection Onset Date Last Indicated Resolved Time MRSA Comment: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 Source: [employer]. 05/14/2016 COVID-19 Comment:Covid recovered 04/19/2024 05/03/2024 05/03/2024 7:19 AM CDT Rule Out COVID-19 05/02/2024 05/02/2024 05/02/2024 2:27 PM CDT documented as of this encounter Care Teams Ramp Supervisor Relationship Specialty Start Date End Date No Ref-Primary, Physician PCP - General 07/20/23 01/04/24 No Ref-Primary, Physician PCP - General 05/02/24 05/05/24 Ashli Howell MD [facility] [address] [place] [address] PCP - General Family Medicine 05/06/24 Georgette Velez MD 500 [place], [place] 97[address] Assigned Nephrology Provider 08/29/23 01/25/24 Ely Galvez MD [address] [facility] 200 [place], [place] [address] Hospitalist Endocrinology, Diabetes, and Metabolism 09/10/23 01/04/24 Lissa White PA-C 500 [place], [place] 307[address] Physician Lan/Wan Engineer Endocrinology, Diabetes, and Metabolism 01/05/24 Eriberto Romano MD 420 [facility] 195 [place], [place] [address] Colon & Rectal 01/18/24 William Spain MD 717 [facility] 353 [facility] 1932 [place], [place] [address] Assigned Nephrology Provider 01/26/24 Aroldo Kimbrough MD 909 [place], [place] 274[address] Gastroenterology 05/12/24 Georgette Velez MD 500 [place], [place] 2[address]25 Nephrology 05/26/24 documented as of this encounter
--- OUTSIDE RECORDS SUMMARY | 2024-06-27 22:35 | XMS_ITS | Clinical Summary ---
Author Organization [facility] Address [place], [place] [address] Care Team Providers Care Seo Intern Name Role Phone [facility] Primary Care Provider [phone] Allergies No known active allergies Medications Medication [...] weekly. 3 mL 5 12/29/2022 Active Insulin Egnar, Disposable, (Microdot Insulin Pen Needle) 32 gauge [...] mouth every 12 hours. 0 03/25/2023 Active traZODone (DESYREL) 50 mg tabletIndications: Insomnia, [...] every morning. 30 mL 3 12/28/2023 Active levothyroxine (SYNTHROID) 75 mcg tabletIndications: Hypothyroidism, unspecified type TAKE 1 TABLET BY MOUTH EVERY DAY 30 Tablet 04/08/2024 Active amLODIPine (NORVASC) 5 mg tabletIndications: HTN (hypertension) TAKE 1 TABLET BY MOUTH EVERY DAY 90 Tablet 04/22/2024 Active Active Problems Problem Noted Date Diagnosed [...] Encounters Date Type Department Care Team Description 06/14/[address] [address] Jed Thayer MD Questions 06/10/[address] [address] Jed Thayer MD Refill Request (Bd Ultra-fine Micro Pen Needle) 04/21/[address] [address] Jed Thayer MD Refill Request (Amlodipine) 04/10/[address] [address] Daphne Kearns MD Refill Request (Levothyroxine/) 04/08/[address] [address] Daphne Kearns MD 04/06/[address] [address] Jed Thayer MD Refill Request (Levothyroxine) from Last 3 Months Immunizations Name Administration [...] ST Respiratory Rate 16 10/19/2016 12:26 PM SALES MARKET LEADER Oxygen Saturation 98% 10/19/2016 12:26 PM SALES MARKET LEADER Inhaled Oxygen Concentration - - Weight 53.5 [...] not required on subsequent adm 08/01/2015 08/01/2015 Insurance Payer Benefit Plan / Group Subscriber ID Effective Dates Phone Address Type MEDICARE PART B - HB USE ONLY MEDICARE PART B HB ONLY [id number] 2016-Presen t ATTN: CLAIMS [address] [place] [address] MEDICARE PART A - HB USE ONLY MEDICARE PART A HB ONLY [id number] 2016-Presen t ATTN: CLAIMS [address] [place] [address] [facility] [id number] 2022-Present [address] [place] [address] [facility] [id number] 2022-Present [address] [place] [address] Advance Directives * Full Code (Latest Code Status on File) Date Activated Date Inactivated Comments 08/01/2015 2:38 PM 08/03/2015 6:01 PM * Full Code Date Activated Date Inactivated Comments 06/24/2015 4:45 AM 06/26/2015 7:36 PM * Full Code Date Activated Date Inactivated Comments 04/18/2015 8:02 PM 04/23/2015 7:48 PM Question Answer Comments Code Status Discussion: Discussed Care Teams Seo Intern Relationship Specialty Start Date End Date [facility] [id number] [place] [address] PCP - General 12/29/23
--- OUTSIDE RECORDS SUMMARY | 2024-06-27 22:35 | XMS_ITS | Encounter Summary ---
Author Organization [facility] Address [address] [place] [address] Care Team Providers Care Bakery Clerk Name Role Phone No Ref-Primary, Physician Primary Care Provider Georgette Velez MD Unavailable [phone] Ely Galvez MD Unavailable [phone] Lissa White PA-C Unavailable Eriberto Romano MD Unavailable William Spain MD Unavailable [phone] No Ref-Primary, Physician Primary Care Provider Ashli Howell MD Primary Care Provider + [phone] Aroldo Kimbrough MD Unavailable Georgette Velez MD Unavailable [phone] Reason for Visit * Reason Onset Date Comments Appointment 03/24/2023 Patient transfer ring Care for Liver and Kidney Transplant. Encounter Details Date Type Department Care Team (Late st Contact Info) Description 03/24/2023 Telephone [facility] [address] [place] [address] None Appointment (Patient transferring Care for [...] encounter Miscellaneous Notes * Telephone Encounter - Kim Gonzalez - 03/24/2023 4:10 PM CDT [facility] Call Center Phone Message May a detailed message be left on voicemail: yes Reason for Call: Appointment Intake Referring Provider Name: Dr. Velez Diagnosis and/or Symptoms: Transfer of Care for Kidney and Liver Trans[facility] [place] Sending encounter message per guideline instructions for review and follow-up with patient for scheduling. Thank you! Action Taken: Message routed to: [facility] SOT Travel Screening: Not Applicable documented in this encounter Plan of Treatment Upcoming Encounters Date Type Department Care Team ([facility] Contact Info) Description 07/18/2024 PRE VISIT [facility] [address] [phone] Eriberto Romano MD [address] [place] [address] [phone] Previsit 07/18/2024 11:00 AM CDT Office Visit [facility] [address] [phone] Kylee Fu MD [address] [place], [place] [address] [address] [place] [address] Eriberto Romano MD [address] [place] [address] 08/19/2024 1:05 PM DIRECTOR OF RETAIL MARKETING Office Visit [facility] [address] [place] [address] [phone] Georgette Velez MD 500 [place] [address] documented as of this encounter Visit Diagnoses Not on filedocumented in this encounter Additional Health Concerns Infection Onset Date Last Indicated Resolved Time MRSA Comment: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 Source: [employer]. 05/14/2016 COVID-19 Comment:Covid recovered 04/19/2024 05/03/2024 05/03/2024 7:19 AM CDT Rule Out COVID-19 05/02/2024 05/02/2024 05/02/2024 2:27 PM CDT documented as of this encounter Care Teams Bakery Clerk Relationship Specialty Start Date End Date No Ref-Primary, Physician PCP - General 07/20/23 01/04/24 No Ref-Primary, Physician PCP - General 05/02/24 05/05/24 Ashli Howell MD [facility] [address] [place] [address] PCP - General Family Medicine 05/06/24 Georgette Velez MD 500 [place], [place] [address] Assigned Nephrology Provider 08/29/23 01/25/24 Ely Galvez MD [address] [facility] 200 [place] [address] Hospitalist Endocrinology, Diabetes, and Metabolism 09/10/23 01/04/24 Lissa White PA-C 500 [place] [address] Physician Geospatial Applications Developer Endocrinology, Diabetes, and Metabolism 01/05/24 Eriberto Romano MD [address] [place] [address] Colon & Rectal 01/18/24 William Spain MD 717 [facility] 353 [facility] [address] [place] [address] Assigned Nephrology Provider 01/26/24 Aroldo Kimbrough MD 909 [place] [address] Gastroenterology 05/12/24 Georgette Velez MD 500 [place] [address] Nephrology 05/26/24 documented as of this encounter
[2024-06-27 23:17] LABS: Appearance Urine Clear (Clear); Bilirubin Urine Negative (Negative); Blood Urine Negative (Negative); Color Urine Yellow (Yellow); Glucose Urine Negative (Negative); Ketones Urine Negative (Negative); Leukocyte Esterase Urine Negative (Negative); Nitrite Urine Negative (Negative); Protein Urine Negative (Negative); Specific Gravity Urine <= 1.005 (1.000-1.030); Urobilinogen Urine 0.2 (0.2-1.0)
[2024-06-27 23:18] LABS: Amylase* 50 U/L (18-89); Lipase* 65 U/L (23-300)
[2024-06-27 23:29] LABS: RBC Urine 0-2 (0-2); WBC Urine 0-2 (0-5)
== END 2024-06-27 22:24 | disposition home or self-care (01) ==
LOC: NPINS 22:23
PROVIDERS: PCP Emergency Medicine
DX: Z94.4 Liver transplant status (principal); Z48.288 Encounter for aftercare following multiple organ transplant; Z79.899 Other long term (current) drug therapy
CPT/HCPCS: 81001; 82150; 83690; 84443

== ENCOUNTER 2024-11-07 10:06 | Outpatient (CLI) | payer MEDICARE, SELFPAY | END 2024-11-07 10:07 | disposition home or self-care (01) | LOC: NFLDREF 11-09 00:47 | PROVIDERS: PCP Emergency Medicine; Referring Provider Emergency Medicine; Visit Provider Emergency Medicine | DX: E78.5 Hyperlipidemia, unspecified (principal); E03.9 Hypothyroidism, unspecified; E08.9 Diabetes mellitus due to underlying condition without complications; Z79.4 Long term (current) use of insulin | CPT/HCPCS: 80053; 80061; 84443 ==